=== PATIENT | male | born 1970 | race American Indian/Alaskan Native ===

== ENCOUNTER 2018-06-03 09:40 | Inpatient (IN) | payer MEDICARE, OTHER ==
[~2018-06-03] VITALS: Ht 177.8 cm; Wt 116.7 kg
--- OUTSIDE RECORDS SUMMARY | ~2018-06-03 | XMS | Clinical Summary ---
Demographics + + + | Address | [address] | | | [place] [address] | + + + | Home Phone | | + + + | Preferred Language | Unknown | + + + | Marital Status | | + + + | Judaism Affiliation | Unknown | + + + | Race | Unknown | + + + | Ethnic Group | Unknown | + + + Author + + + | Author | [facility] | + + + | Organization | [facility] | + + + | Address | Unknown | + + + | Phone | Unavailable | + + + Support + + +---------+ + | Name | Relationship | Address | Phone | + + +---------+ + | Jael Charlton | ECON | Unknown | | + + +---------+ + | Sania Toure | ECON | Unknown | | + + +---------+ + | Detailed,Message | ECON | Unknown | | + + +---------+ + Care Team Providers + +------+ + | Care Lightning Rod Installer Name | Role | Phone | + +------+ + | Edwar Wilhelm | PP | | + +------+ + Allergies + + + + + + | Active Allergy | Reactions | Severity | Noted | Comments | | | | | Date | | + + + + + + | Bee Venom | Anaphylaxis, | High | 10//20 | | | | Swelling, Rash | | 16 | | + + + + + + Current Medications + + +-------+---------+------+------+-------+ | Prescription | Sig. | Disp. | Refills | Star | End | Statu | | | | | | t | Date | s | | | | | | Date | | | + + +-------+---------+------+------+-------+ | BACLOFEN PO | Take 10 mg by mouth | | | | | Activ | | | 3 (three) times | | | | | e | | | daily. 2 10 mg tabs | | | | | | | | tid | | | | | | + + +-------+---------+------+------+-------+ | Calcium | Take 1 tablet by | | | | | Activ | | Carb-Cholecalciferol | mouth 3 (three) | | | | | e | | 600-500 MG-UNIT | times daily. | | | | | | | CAPS | | | | | | | + + +-------+---------+------+------+-------+ | | Take 1 tablet by | | | | | Activ | | HYDROcodone-acetamin | mouth every 6 (six) | | | | | e | | ophen (NORCO) 10-325 | hours as needed for | | | | | | | MG per tablet | Pain. | | | | | | + + +-------+---------+------+------+-------+ | midodrine | Take 10 mg by mouth | | | | | Activ | | (PROAMATINE) 10 MG | 3 (three) times | | | | | e | | tabletIndications: | daily. Indications: | | | | | | | Orthostatic | Blood Pressure Drop | | | | | | | Hypotension | Upon Standing | | | | | | + + +-------+---------+------+------+-------+ | morphine (MSIR) 15 | Take 15 mg by mouth | | | | | Activ | | MG tablet | 2 (two) times daily. | | | | | e | + + +-------+---------+------+------+-------+ | tizanidine | Take 4 mg by mouth 3 | | | | | Activ | | (ZANAFLEX) 4 MG | (three) times daily | | | | | e | | capsule | as needed for | | | | | | | | Muscle spasms. | | | | | | + + +-------+---------+------+------+-------+ | ascorbic acid | Take 500 mg by mouth | | | | | Activ | | (VITAMIN C) 500 MG | 2 (two) times | | | | | e | | tablet | daily. | | | | | | + + +-------+---------+------+------+-------+ | Naproxen Sodium | Take 1 tablet by | | | | | Activ | | 220 MG CAPS | mouth as needed. | | | | | e | + + +-------+---------+------+------+-------+ | ciprofloxacin | Take 500 mg by mouth | | | | | Activ | | (CIPRO) 500 MG | 2 (two) times | | | | | e | | tabletIndications: | daily. Indications: | | | | | | | Surgical Prophylaxis | Surgical Prophylaxis | | | | | | + + +-------+---------+------+------+-------+ + + +-------+ +------+------+-------+ | Hospital, Clinic, or | Ordered | Route | Frequency | Star | End | Statu | | Other Facility | Dose | | | t | Date | s | | Administered | | | | Date | | | | Medication | | | | | | | + + +-------+ +------+------+-------+ | lidocaine | | UR | Once | 07/1 | | Activ | | (XYLOCAINE) 2 % | | | | 2/20 | | e | | uro-ject | | | | 17 | | | | gelIndications: | | | | | | | | Neurogenic bladder | | | | | | | + + +-------+ +------+------+-------+ | sodium chloride | 60 mL | IR | Continuous | 08/1 | | Activ | | (IR) 0.9 % | | | | 5/20 | | e | | irrigation 60 | | | | 17 | | | | mLIndications: | | | | | | | | Neurogenic bladder | | | | | | | + + +-------+ +------+------+-------+ Active Problems + + + | Problem | Noted Date | + + + | Neurogenic bladder | 12/15/2015 | + + + Family History + + +------+ + | Medical History | Relation | Name | Comments | + + +------+ + | Heart disease | Father | | | + + +------+ + | Hypertension | Father | | | + + +------+ + + +------+--------+ + | Relation | Name | Status | Comments | + +------+--------+ + | Father | | Alive | | + +------+--------+ + | Mother | | Alive | | + +------+--------+ + Social History + +-------+ +--------+------+ | Tobacco Use | Types | Packs/Day | Years | Date | | | | | Used | | + +-------+ +--------+------+ | Former Smoker | | 0.1 | 1 | | + +-------+ +--------+------+ + +---+---+---+ | Smokeless Tobacco: | | | | | Current User | | | | + +---+---+---+ + + | Comments: quit smoking 1994 | + + + + +---------+ + | Alcohol Use | Drinks/We | oz/Week | Comments | | | ek | | | + + +---------+ + | No | | | | + + +---------+ + + + + | Sex Assigned at | Date Recorded | | | | + + + | Not on file | | + + + Last Filed Vital Signs + + + + | Vital Sign | Reading | Time Taken | + + + + | Blood Pressure | 132/67 | 03/02/2016 10:00 AM PST | + + + + | Pulse | 81 | 03/02/2016 10:00 AM PST | + + + + | Temperature | 36.4 C (97.6 F) | 03/02/2016 10:00 AM PST | + + + + | Respiratory Rate | 16 | 03/02/2016 10:00 AM PST | + + + + | Oxygen Saturation | 99% | 03/02/2016 10:00 AM PST | + + + + | Inhaled Oxygen | - | - | | Concentration | | | + + + + | Weight | 99.3 kg (219 lb) | 03/02/2016 7:28 AM PST | + + + + | Height | 177.8 cm (5' 10") | 03/02/2016 7:28 AM PST | + + + + | Body Mass Index | 31.42 | 03/02/2016 7:28 AM PST | + + + + Plan of Treatment + + + + + | Health Maintenance | Due Date | Last Done | Comments | + + + + + | Vaccine: | | | | | Dtap/Tdap/Td (1 - | 0 | | | | Tdap) | | | | + + + + + | Vaccine: Influenza | | 02/14/2013 | | | (Season Ended) | 9 | | | + + + + + Results Not on filefrom Last 3 Months Insurance + +--------+ +------+-------+ + | Payer | Benefi | Subscriber | Type | Phone | Address | | | t Plan | ID | | | | | | / | | | | | | | Group | | | | | + +--------+ +------+-------+ + | MEDICARE | MEDICA | [id number] | | | [address] | | | RE | | | | [place] [address] | | | IP-OP | | | | | + +--------+ +------+-------+ + | MEDICAID | [place] | [id number] | | | [address] | | | [place] | | | | [place] | | | [place] | | | | [address] | | | [place] | | | | | + +--------+ +------+-------+ + | [facility] | YELLOW | [id number] | | | | | PLANS | [place] | | | | | + +--------+ +------+-------+ + + +--------+ +--------+ + + | Guarantor Name | Accoun | Relation to | Date | Phone | Billing Address | | | t Type | Patient | of | | | | | | | | | | + +--------+ +--------+ + + | MARTINEZ ABBASI II | Person | Self [birth year] | Home: | [address] | | | al/Fam | | 1970 | +- | [place] | | | [place]ri[place] | | | [address] | [phone] | + +--------+ +--------+ + + | MARTINEZ ABBASI II | Third | Self | [birth year] | Home: | [address] | | | Republican | | 1970 | +- | [place] | | | [place] | | | [address] | [phone] | | | ity | | | | | + +--------+ +--------+ + +
--- OUTSIDE RECORDS SUMMARY | ~2018-06-03 | XMS | Clinical Summary ---
Demographics + + + | Address | [address] | | | [place] [address] | + + + | Home Phone | | + + + | Preferred Language | Unknown | + + + | Marital Status | Single | + + + | Muslim Affiliation | 1074 | + + + | Race | Unknown | + + + | Ethnic Group | Unknown | + + + Author + + + | Author | [facility] | | | and [place]ren[place] | + + + | Organization | [facility] | | | and [place] | [...] [place] | | | | | [address] | | + + + + + Care Team Providers + +------+ + | Care Magisterial District Judge Name | Role | Phone | + +------+ + | Edwar Wilhelm PA-C | PP | Unavailable | + +------+ + Allergies + + + + + + | Active Allergy | Reactions | Severity | Noted | Comments | | | | | Date | | + + + + + + | Bee Venom | Swelling | Medium | 05/10/20 | | | | | | 14 | | + + + + + + | Honey Bee Venom | Swelling | Medium | /1020 | | | | | | 14 | | + + + + + + Medications + + + +---------+------+------+-------+ | Medication | Sig | Dispensed | Refills | Star | End | Statu | | | | | | t | Date | s | | | | | | Date | | | + + + +---------+------+------+-------+ | gabapentin | Take 300 mg by mouth | | 0 | | | Activ | | (NEURONTIN) 100 mg | 3 times daily. | | | | | e | | capsule | | | | | | | + + + +---------+------+------+-------+ | midodrine | Take 10 mg by mouth | | 0 | | | Activ | | (PROAMATINE) 10 MG | 3 times daily. | | | | | e | | tablet | | | | | | | + + + +---------+------+------+-------+ | acetaminophen | Take 650 mg by mouth | | 0 | | | Activ | | (TYLENOL) 325 mg | every 4 hours as | | | | | e | | tablet | needed. | | | | | | + + + +---------+------+------+-------+ | albuterol | Inhale 2 puffs into | 1 | 0 | 04/0 | | Activ | | (VENTOLIN HFA) 90 | the lungs every 4 | Inhaler | | 8/20 | | e | | mcg/puff inhaler | hours as needed for | | | 14 | | | | | Wheezing or | | | | | | | | Shortness of Breath. | | | | | | | | Use with spacer | | | | | | | | device. | | | | | | + + + +---------+------+------+-------+ | docusate sodium | Take 100 mg by mouth | | 0 | | | Activ | | (COLACE) 100 mg | Daily. | | | | | e | | capsule | | | | | | | + + + +---------+------+------+-------+ | Probiotic Product | Take 1 tablet by | | 0 | | | Activ | | (PROBIOTIC PEARLS | mouth Daily. | | | | | e | | PO) | | | | | | | + + + +---------+------+------+-------+ | polyethylene | Mix 17grams into 4-8 | 255 g | 0 | 09/1 | | Activ | | glycol (MIRALAX) | oz of juice or | | | 3/20 | | e | | powder | water and take by | | | 14 | | | | | mouth once daily for | | | | | | | | 2 weeks | | | | | | + + + +---------+------+------+-------+ | calcium-vitamin D | Take 1 tablet by | | 0 | | | Activ | | (OSCAL) 500 mg-200 | mouth Daily. | | | | | e | | units per tablet | | | | | | | + + + +---------+------+------+-------+ | | Take 1 tablet by | | 0 | | | Activ | | HYDROcodone-acetamin | mouth every 8 hours | | | | | e | | ophen (NORCO) 10-325 | as needed for Pain. | | | | | | | mg per tablet | | | | | | | + + + +---------+------+------+-------+ | baclofen | 1 tablet by mouth | 150 | 2 | 08/2 | | Activ | | (LIORESAL) 20 mg | qAM, 1 qNoon, 1 qPM, | tablet | | 4/20 | | e | | tabletIndications: | and 2 qHS | | | 15 | | | | Abdominal spasms, | | | | | | | | Muscle spasm of both | | | | | | | | lower legs | | | | | | | + + + +---------+------+------+-------+ | morphine (MSIR) 15 | Take 15 mg by mouth | | 0 | | | Activ | | mg tablet | 2 times daily. | | | | | e | + + + +---------+------+------+-------+ Active Problems + + + | Problem | Noted Date | + + + | Impaired mobility and activities of daily living | 02/24/2015 | + + + | Impaired functional mobility, balance, gait, and endurance | 02/24/2015 | + + + | Quadriplegia, C5-C7, incomplete | 02/23/2015 | + + + | Posture imbalance | 02/23/2015 | + + + | Neck pain | 02/23/2015 | + + + | Bilateral shoulder pain | 02/23/2015 | + + + | Dysphagia | 12/18/2014 | + + + | GERD (gastroesophageal reflux disease) | 12/18/2014 | + + + | RUQ abdominal pain | 12/18/2014 | + + + | Constipation | 12/18/2014 | + + + | Incomplete spinal cord lesion at C5-C7 level | 08/19/2013 | + + + | Abdominal spasms | 07/17/2013 | + + + | Muscle spasm of both lower legs | 07/17/2013 | + + + | Neurogenic bowel | 07/17/2013 | + + + | Neurogenic bladder | 07/17/2013 | + + + | Impaired mobility and ADLs | 07/17/2013 | + + + | Septic shock | 07/06/2013 | + + + | Acute renal failure (ARF) | 07/06/2013 | + + + | UTI (lower urinary tract infection) | 07/06/2013 | + + + + + | 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 | + + Last Filed Vital Signs + + + + | Vital Sign | Reading | Time Taken | + + + + | Blood Pressure | 143/68 | 09/15/20161248 PDT | + + + + | Pulse | 69 | 09/15/20161248 PDT | + + + + | Temperature | 37.8 C (100 F) | 04/08/20151651 PST | + + + + | Respiratory Rate | 20 | 06/14/20161629 PDT | + + + + | Oxygen Saturation | 99% | 04/08/20151651 PST | + + + + | Inhaled Oxygen | - | - | | Concentration | | | + + + + | Weight | 98 kg (216 lb) | 09/15/20161248 PDT | + + + + | Height | 177.8 cm (5' 10") | 09/15/2016 1249 PDT | + + + + | Body Mass Index | 30.99 | 09/15/20161248 PDT | + + + + Plan of Treatment + + + + + | Health Maintenance | Due Date | Last Done | Comments | + + + + + | Vaccine: | | | | | Dtap/Tdap/Td (1 - | 0 | | | | Tdap) | | | | + + + + + | Vaccine: | | | | | Pneumococcal 19-64 | 0 | | | | Highest Risk (1 of 3 | | | | | - PCV13) | | | | + + + + + | Adult Annual | | | | | Wellness Visit | 5 | | | + + + + + | Vaccine: Influenza | | 02/14/2013 | | | (Season Ended) | 9 | | | + + + + + Results Not on filefrom Last 3 Months Insurance + +--------+ +--------+ +---------+--------+ | Payer | Benefi | Subscriber | Effect | Phone | Address | Type | | | t Plan | ID | michelle | | | | | | / | | Dates | | | | | | Group | | | | | | + +--------+ +--------+ +---------+--------+ | MEDICARE | MEDICA | [id number] | 07/29/19 | [phone] | | Medica | | | RE | | 16-Pre | 5 | | re | | | PART A | | sent | | | | | | AND B | | | | | | + +--------+ +--------+ +---------+--------+ | [employer] | MODA | [id number] | 02/17/ | [phone] | | Medica | | MEDICAID HMO | HEALTH | | 2014-P | 1 | | id | | | MDCD | | resent | | | | | | HMO [place] | | | | | | + +--------+ +--------+ +---------+--------+ | [facility] | IHS | [id number] | | | | Indemn | | SERVICE | YELLOW | | 014-Pr | | | ity | | | [place]WK | | esent | | | | + +--------+ +--------+ +---------+--------+ + +--------+ +--------+ + + | Guarantor Name | Accoun | Relation to | Date | Phone | Billing Address | | | t Type | Patient | of | | | | | | | | | | + +--------+ +--------+ + + | Martinez Abbasi II | Person | Self [birth year] | | [address] | | | al/Fam | | 1971 | [phone] | [place] [address] | | | adri[place] | | | 4 (Home) | | + +--------+ +--------+ + + Advance Directives Patient has advance care planning documents, and code status on file. For more information, please contact:[facility] [place] [address] + + + + + | Code Status | Date | Date | Comments | | | Activated | Inactivated | | + + + + + | Full Code | 07/06/2013 | 07/09/2013 | | | | 1:19 | 17:35 | | + + + + + + +---------+---+ | Orders discussed with: | Patient | | + +---------+---+
--- OUTSIDE RECORDS SUMMARY | ~2018-06-03 | XMS | Clinical Summary ---
Demographics + + + | Address | [address] | | | [place] [address] | + + + | Home Phone | | + + + | Preferred Language | Unknown | + + + | Marital Status | | + + + | Druze Affiliation | Unknown | + + + | Race | Unknown | + + + | Ethnic Group | Unknown | + + + Author + + + | Author | [facility] | + + + | Organization | [facility] | + + + | Address [...] Team Providers + +------+ + | Care Petroleum Plant Operator Name | Role | Phone | [...] +------+-------+ + | MEDICARE | MEDICA | [id number] | | | [address] | | | RE | | | | [place] [address] | | | IP-OP | | | | | + +--------+ +------+-------+ + | MEDICAID | [place] | [id number] | | | [address] | | | N | | | | [place] | | | [place] | | | | [phone] | | | PIPING SUPERVISOR | | | | | + +--------+ +------+-------+ + | [facility] | YELLOW | [id number] | | | | | PLANS | [...] | [place] | | | [address] | [phone] | + +--------+ +--------+ + + | MARTINEZ ABBASI II | Third | Self | [birth year] | Home: | [address] | | | Libertarian | | 1970 | +- | [place] | | | [place] | | | [address] | [phone] | | | ity | | | | | + +--------+ +--------+ + +
--- OUTSIDE RECORDS SUMMARY | ~2018-06-03 | XMS | Clinical Summary ---
Demographics + + + | Address | [address] | | | [place] [address] | + + + | Home Phone | | + + + | Preferred Language | Unknown | + + + | Marital Status | Single | + + + | Synagogue Affiliation | 1074 | + + + | Race | Unknown | + + + | Ethnic Group | Unknown | + + + Author + + + | Author | [facility] | | | and [place] | + + + | Organization | [facility] | | | and [place] [...] [place] | | | | | [address] | | + + + + + Care Team Providers + +------+ + | Care Post Tensioning Ironworker Helper Name | Role | Phone | [...] + + + | Overview: Problem list council member utility | + + + + + [...] +--------+ +---------+--------+ | MEDICARE | MEDICA | [id number] | 07/29/19 | [phone] | | Medica | | | RE | | 16-Pre | 5 | | re | | | PART A | | sent | | | | | | AND B | | | | | | + +--------+ +--------+ +---------+--------+ | [employer] | MODA | [id number] | 02/17/ | [phone] | | Medica | | MEDICAID HMO | HEALTH | | 2014-P | 1 | | id | | | MDCD | | resent | | | | | | HMO [place] | | | | | | + +--------+ +--------+ +---------+--------+ | [facility] | IHS | [id number] | | | | Indemn | | [...] | | al/Fam | | 1971 | [phone] | [place] [address] | | | adri[place] | | | 4 (Home) | | + +--------+ +--------+ + + Advance Directives Patient has advance care planning documents, and code status on file. For more information, please contact:[facility] [place] [address] + + + + + | Code [...]
--- OUTSIDE RECORDS SUMMARY | ~2018-06-03 | XMS | Clinical Summary ---
Demographics + + + | Address | [address] | | | [place] [address] | + + + | Home Phone | | + + + | Preferred Language | Unknown | + + + | Marital Status | | + + + | Jew Affiliation | Unknown | + + + | Race | Unknown | + + + | Ethnic Group | Unknown | + + + Author + + + | Author | [facility] | + + + | Organization | [facility] | + + + | Address [...] Team Providers + +------+ + | Care Automobile Tire Builder Name | Role | Phone | [...] +------+-------+ + | MEDICARE | MEDICA | [id number] | | | [address] | | | RE | | | | [place] [address] | | | IP-OP | | | | | + +--------+ +------+-------+ + | MEDICAID | [place] | [id number] | | | [address] | | | N | | | | [place] | | | [place] | | | | [phone] | | | MANUFACTURING JOB TITLES | | | | | + +--------+ +------+-------+ + | [facility] | YELLOW | [id number] | | | | | PLANS | [...] | [place] | | | [address] | [phone] | + +--------+ +--------+ + + | MARTINEZ ABBASI II | Third | Self | [birth year] | Home: | [address] | | | Democrat | | 1970 | +- | [place] | | | [place] | | | [address] | [phone] | | | [place]y | | | | | + +--------+ +--------+ + +
--- OUTSIDE RECORDS SUMMARY | ~2018-06-03 | XMS | Clinical Summary ---
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 | + + + + + [...] +--------+ +---------+--------+ | MEDICARE | MEDICA | [id number] | 07/29/19 | [phone] | | Medica | | | RE | | 16-Pre | 5 | | re | | | PART A | | sent | | | | | | AND B | | | | | | + +--------+ +--------+ +---------+--------+ | [employer] | MODA | [id number] | 02/17/ | [phone] | | Medica | | MEDICAID HMO | HEALTH | | 2014-P | 1 | | id | | | MDCD | | resent | | | | | | [place]MO [place] | | | | | | + +--------+ +--------+ +---------+--------+ | [facility] | IHS | [id number] | | | | Indemn | | [...] | | al/Fam | | 1971 | [phone] | [place] [address] | | | adrián | | | 4 (Home) | | + +--------+ +--------+ + + Advance Directives Patient has advance care planning documents, and code status on file. For more information, please contact:[facility] [address] + + + + + | Code [...]
[~2018-06-03 09:40] MED LIST: BACLOFEN20 MG PO; CALCIUM 600 +1 EAC1 PO; CLARITIN10 MG PO; DITROPAN XL5 MG PO; GABAPENTIN100 MG PO; GABAPENTIN300 MG PO; HYDROCODON-ACE1 EAC8 PO; MARINOL5 MG PO; MIDODRINE HCL10 MG PO; MIRALAX119 GM PO; MORPHINE SULFAT15 M1 PO; MULTIVITAMINS1 EAC8 PO; OMEPRAZOLE20 MG PO; SENNA GEN PO; VITAMIN C500 M2 PO; WARFARIN SODIU7.5 MG PO
--- OUTSIDE RECORDS SUMMARY | 2018-06-03 09:42 | XMS ---
PreManage Notification: WILLY CASTILLO Security Barrel Endshaker Adjuster Events No recent Security Events currently on file CRITERIA MET - [facility] CARE PROVIDERS MASTER AGUIRRE, Physical Medicine \T\ Rehabilitation [facility] Norma EMartin PHONE: Unknown Conner Mazariegos Wing Mailer Machine Operator/Senior Mobile Web Developer 01/27/2018-Current PHONE: [phone] Conner Mazariegos Wing Mailer Machine Operator/Senior Mobile Web Developer 01/27/2018-Current PHONE: [phone] Conner Mazariegos Primary Care 01/27/2018-Current PHONE: [phone] Kat has no Care Guidelines for this patient. Devan VISIT COUNT (12 MO.) 1 [facility] oMore TOTAL 1 NOTE: Visits indicate total known visits. ED/UCC VISIT TRACKING (12 MO.) 06/03/2018 09:40 [facility] [place] TYPE: Emergency COMPLAINT: - RECTAL BLEEDING INPATIENT VISIT TRACKING (12 MO.) No inpatient visits to display in this time frame [id number]
[2018-06-03] MEDS ORDERED: BACLOFEN10 MG PO (10:06)
[2018-06-04] MEDS ORDERED: NORCO 7.5-3251 EACH PO (10:33)
[2018-06-04] MEDS ORDERED: GABAPENTIN600 MG PO (14:29)
[2018-06-04] MEDS ORDERED: TIZANIDINE HCL4 MG PO (14:30)
[2018-06-05] MEDS ORDERED: LORATADINE10 MG PO (17:39)
[2018-06-10] MEDS ORDERED: METRONIDAZOLE250 MG PO (10:47)
[2018-06-10] MEDS ORDERED: CEPHALEXIN500 MG PO (10:47)
== END 2018-06-10 13:15 | disposition home or self-care (01) | DRG 393 ==
LOC: ED 09:40 → MS 15:34
PROVIDERS: ADMIT Internal Medicine
DX: K55.039 Acute (reversible) ischemia of large intestine, extent unspecified (principal); G82.50 Quadriplegia, unspecified; A09 Infectious gastroenteritis and colitis, unspecified; N31.9 Neuromuscular dysfunction of bladder, unspecified; G90.4 Autonomic dysreflexia; L89.621 Pressure ulcer of left heel, stage 1; L89.611 Pressure ulcer of right heel, stage 1; S14.107S Unspecified injury at C7 level of cervical spinal cord, sequela; V78 Bus occupant injured in noncollision transport accident; Z79.899 Other long term (current) drug therapy; Z79.891 Long term (current) use of opiate analgesic; Z72.0 Tobacco use
CPT/HCPCS: 36415; 74018; 74177; 80053; 85025; 87046; 87205; 87493; 99285-25; J0690; J2270; J2405; J7120; Q9967

== ENCOUNTER 2019-03-24 14:23 | Emergency (ER) | payer MEDICARE, OTHER ==
[~2019-03-24] VITALS: Ht 177.8 cm; Wt 100.0 kg
[~2019-03-24 14:23] MED LIST changes: +BACLOFEN10 MG PO; +CEPHALEXIN500 MG PO; +GABAPENTIN600 MG PO; +LORATADINE10 MG PO; +METRONIDAZOLE250 MG PO; +NORCO 7.5-3251 EACH PO; +TIZANIDINE HCL4 MG PO
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
[2019-03-24] MEDS ORDERED: EPIN0.3P IM (14:40)
[2019-03-25] MEDS ORDERED: DIPHENOXYLATE-1 EACH PO (17:35)
== END 2019-03-24 16:06 | disposition home or self-care (01) ==
LOC: ED 14:23
DX: T83.098A Other mechanical complication of other urinary catheter, initial encounter (principal); Z91.030 Bee allergy status; Z79.899 Other long term (current) drug therapy
CPT/HCPCS: 51702; 99283-25

== ENCOUNTER 2019-03-25 11:40 | Inpatient (IN) | payer MEDICARE, OTHER ==
[~2019-03-25] VITALS: Ht 177.8 cm; Wt 99.8 kg
[~2019-03-25 11:40] MED LIST changes: +EPIN0.3P IM
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
--- NOTE | 2019-03-25 16:46 | NUR ---
PT ARRIVED TO ROOM AND HOYERED TO BED. IVF AND ABX INFUSING NOW. WATER PROVIDED. DINNER ORDERED. HOME CAREGIVER HERE FOR FIRST HOUR AND LEFT AT 1640. ALL BELONGINGS IN REACH. FAN PROVIDED PER REQUEST.
[2019-03-25] MEDS ORDERED: DIPHENOXYLATE-1 EACH PO (17:35)
--- NOTE | 2019-03-25 17:35 | NUR ---
NEW ED ADMIT. SEPSIS/UTI. BARRIENTOS CATHETER. DID HAVE SUPRAPUBIC CATHETER BUT INADVERTENTLY BECAME DISLODGED YESTERDAY 03/24. ALERT AND ORIENTED. VS NON ROUTINE. QUADRIPLEGIA. REGULAR DIET.
--- NOTE | 2019-03-25 17:44 | NUR ---
MED REC COMPLETE
--- NOTE | 2019-03-25 18:03 | NUR ---
ADMINISTERED PRN IMMODIUM PER PT REQUEST AND GIVEN WARM BLANKET. CALL LIGHT WITHIN REACH.
--- NOTE | 2019-03-25 18:16 | NUR ---
PATIENT REPOSTITIONED ONTO RIGHT SIDE. B\P HIGH, WILL RECHECK IN A FEW MINTUES AFTER PATIENT RESTS FOR A BIT. CALL [facility] IN REACH. NO FURTHER NEEDS AT THIS TIME.
--- NOTE | 2019-03-25 18:58 | NUR ---
B\P RETAKEN, RN NOTIFIED. CALL LIGHT IN REACH. NO FURTHER NEEDS AT THIS TIME.
--- NOTE | 2019-03-25 19:10 | NUR ---
BEDSIDE REPORT RECEIVED FROM ERICA JAIME. pt AWAKENS TO VOICE, LYING IN BED. DENIES ANY NEEDS AT THIS TIME. BARRIENTOS CATHTER DRAINING CLEAR YELLOW URINE. CALL LIGHT IN LAP.
--- NOTE | 2019-03-25 21:28 | NUR ---
ASSESSMENT AND BARRIENTOS CARE COMPLETE. VSS. pt REPOSITIONED TO LEFT SIDE WITH TWO RN ASSIST. ICE WATER PROVIDED. IV FLUSHED, INFUSING WNL. pt RATES PAIN 6/10, UNABLE TO STATE LOCATION. PRN MEDICATION PROVIDED. CALL LIGHT IN REACH. NO ADDIITONAL REQUESTS.
--- NOTE | 2019-03-25 23:40 | NUR ---
CHECKED ON pt. RESTING IN BED AWAKE, DENIES ANY REQUESTS AT THIS TIME. DENIES NEED TO BE REPOSITIONED STATES "I JUST MOVED MYSELF, WAS ABLE TO SHIFT MY BUTT OVER". CALL LIGHT IN LAP.
--- NOTE | 2019-03-26 00:33 | NUR ---
CALL LIGHT ANSWERED. ASSISTED TO REPOSITION LEGS. HEEL PROTECTORS ON. CALL LIGHT IN REACH. NO ADDITIONAL REQUESTS AT THIS TIME.
--- NOTE | 2019-03-26 01:19 | NUR ---
pt AWAKE RESTING IN BED. VSS. pt RATES PAIN 7/10 IN LOWER ABD "MOSTLY" SOME GENERALIZED PAIN. REPOSITIONED WITH TWO RN ASSIST. BARRIENTOS EMPTIED 775 MLS YELLOW URINE. NEW BAG IVF INFUSING WNL ORDERED. ICE WATER PROVIDED. CALL LIGHT IN REACH.
--- NOTE | 2019-03-26 03:05 | NUR ---
CHECKED ON pt. LYING IN BED AWAKE. RATES PAIN 7/10 IN LOWER ABD/ALL OVER. PRN PAIN MEDICATION ADMINISTERED. ASSESSMENT COMPLETE. BARRIENTOS EMPTIED, CLEAR YELLOW URINE, 950 MLS. CALL LIGHT IN REACH. pt DENIES REPOSITIONING AT THIS TIME.
--- NOTE | 2019-03-26 05:07 | NUR ---
pt RESTING OFF AND ON THROUGHOUT SHIFT. BED BOUND. TURN Q2H PRN. IVF INFUSING WNL. PAIN CONTROLLED WITH PRN MEDICATION AVAILABLE. BARRIENTOS DRAINING QS OUTPUT, CLEAR YELLOW URINE. TOLERATING REGULAR DIET.
--- NOTE | 2019-03-26 05:30 | NUR ---
CALL LIGHT ANSWERED. BREAKFAST ORDER OBTAINED. NO REQUESTS AT THIS TIME.
--- NOTE | 2019-03-26 07:45 | NUR ---
BEDSIDE REPORT RECEIVED FROM LLOYD MALDONADO. ALL QUESTIONS ASNWERED. WHITE BOARD UPDATED. PATIENT AWAKE AT 0730. VSS. STREETER FROM DR HUTCHISON OFFICE IN TO SEE PATIENT. ASSISTED WITH REPOSITIONING PATIENT FOR BREAKFAST.
--- NOTE | 2019-03-26 09:23 | NUR ---
PATIENT C/O ABDOMINAL TENDERNESS. NORCO GIVEN AND IMMODIUM WITH MORNING MEDS. PATIENT COOPERATIVE WITH CARE AND IN A PLEASANT MOOD. NEW IVF BAG HUNG AND LEVAQUIN INFUSING INTO RFA IV NOW. ICE WATER PROVIDED. BREAKFAST TRAY REMOVED FROM ROOM. NO OTHER NEEDS AT THIS TIME.
--- NOTE | 2019-03-26 09:49 | NUR ---
PATIENT IN BED. PATIENT DID ORAL CARE AND AM CARE. PATIENT WANTS BEDBATH LATER. CALL LIGHT IN REACH. NO FURTHER NEEDS AT THIS TIME.
--- NOTE | 2019-03-26 10:57 | EKG ---
[facility] [address] [place], [place] [address] Signed Normal sinus rhythm Normal ECG When compared with ECG of 14-DEC-2017 12:59, No significant change was found Confirmed by LAKIA BEARD MD ([id number]) on 03/26/2019 10:57:25 AM Electronically Signed By: LAKIA BEARD MD 03/26/19 1057 PATIENT NAME: JONATHANWILLY ARRINGTON Electrocardiogram DATE OF : 70 PHYSICIAN: LAKIA BEARD MD REPORT #: [id number] REPORT IS CONFIDENTIAL AND NOT TO BE RELEASED WITHOUT AUTHORIZATION
--- NOTE | 2019-03-26 14:18 | NUR ---
RECEIVED A PHONE CALL FROM YOMAIRA HERRERA RN AT [facility] SHE WAS QUESTIONING WHETHER HE WAS STILL KEEPING HIS APPT WITH DR HUTCHISON THAT IS SCHEDULED FOR TOMORROW AM AT 0930. ALSO IF HE WAS GOING TO BE ABLE TO MAKE HIS APPOINTMENT WITH DR AGUIRRE TOMORROW. I TOLD HER I WOULD CHECK AND SEE AND LET HER KNOW. TALKED WITH PTS ERICA JAIME, SHE STATED THAT THE APPT FOR DR HUTCHISON WAS CHANGED TO March AT 1345 FOR H AND P VISIT AND March FOR SURGERY. THEN SHE DIDN'T KNOW ABOUT HIS VISIT FOR TOMORROW. PT CALLED AND CHANGED HIS APPT WITH DR AGUIRRE FOR May. I SPOKE WITH THE PT, HE SAID HE HAS NOT CANCELLED ANYTHING OR LET [facility] ABOUT ANY OF THESE CHANGES. I TOLD HIM I WOULD LET [facility] KNOW ABOUT THESE. ATTEMPTED TO CALL [facility] AND LEFT A MESSAGE WITH YOMAIRA. WILL CALL HER BACK LATER UNLESS SHE CALLS ME FIRST.
--- NOTE | 2019-03-26 14:58 | NUR ---
PATIENT SITTING UP IN BED, FAMILY IN ROOM. RN IN ROOM. FRESH WATER GIVEN. CALL LIGHT IN REACH. NO FURTHER NEEDS AT THIS TIME.
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
--- NOTE | 2019-03-26 16:41 | NUR ---
PATIENT GIVEN BEDBATH. LINENS CHANGED. LA CARE DONE. CALL LIGHT IN REACH. NO FURTHER NEEDS AT THIS TIME.
--- NOTE | 2019-03-26 16:49 | NUR ---
GRETCHEN, PHYSICAL THERAPIST, WORKED WITH PATIENT IN BED. BED BATH GIVEN BY PAOLA FELICIANO AND THIS RN AFTERWARDS. NOW HUNTER, CHLORINATION OPERATOR, IN TO SPEAK WITH PATIENT.
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
--- NOTE | 2019-03-26 17:10 | NUR ---
TALKED WITH PT REGARDING HIS ILLNESS, VERY INTERESTED IN MAKING SURE THAT HE IS DOING WHATS BEST FOR HIS CONDITION. WE TALKED ABOUT HIM TAKING CARE OF HIMSELF. PT STATES THAT HE IS WANTING TO RETURN TO SCHOOL AND BECOMING A PEER COUNSELOR FOR MENTAL HEALTH. HE UNDERSTANDS THE PROPER CARE AND TECHNIQUE NEEDED FOR CARING FOR HIS SUPRAPUBIC CATH. STATES HIS CAREGIVER IS VERY GOOD AT TAKING CARE. PT STATES UNDERSTANDING OF HIS DISEASE PROCESS. WENT THROUGH THE EDUCATION PACKET WITH HIM. STATES UNDERSTANDING.
--- NOTE | 2019-03-26 18:05 | NUR ---
PATIENT SITTING UP IN BED WATCHING TV. CALL LIGHT IN REACH. NO FURTHER NEEDS AT THIS TIME.
--- NOTE | 2019-03-26 18:10 | NUR ---
QUADRIPLEGIC WITH SOME USE OF HANDS AND ARMS. NORCO FOR PAIN PRN. IMODIUM GIVEN X2 TODAY. BED BATH THIS AFTERNOON. SOMETIMES HAS HIGH BP R/T MOVEMENT/REPOSITIONING OR PAIN. MIDODRINE FOR HISTORY OF LOW BP. 2PA LYUBOV. JOSH. BARRIENOTS CATHETER. UO QS.
--- NOTE | 2019-03-26 19:35 | NUR ---
BEDSIDE REPORT RECEIVED FROM ERICA JAIME. pt RESTING IN BED. REQUESTING PRN IMODIUM, "FEEL LIKE MY BELLY IS ACTING UP". CALL LIGHT IN REACH. IVF INFUSING WNL.
--- NOTE | 2019-03-26 20:42 | NUR ---
pt AWAKE RESTING IN BED WATCHING TV. RATES PAIN 7-8/10 ALL OVER. PRN MEDICATION ADMINISTERED. PRN IMODIUM ADMINISTERED. BARRIENTOS CARE COMPLETE. VSS. CALL LIGHT IN REACH. ICE WATER AND WARM BLANKET PROVIDED. pt DENIES REPOSTIONING AT THIS TIME. HEEL PROTECTORS ON. LEGS ELEVATED ON PILLOW.
--- NOTE | 2019-03-27 00:57 | NUR ---
pt RESTING IN BED WITH EYES CLOSED, SNORING. BREATHING UNLABORED. LIGHTS OFF IN ROOM.
--- NOTE | 2019-03-27 02:47 | NUR ---
pt APPEARS TO BE SLEEPING. RR 20. EYES CLOSED. LIGHTS OFF IN ROOM. BARRIENTOS DRAINING WNL.
--- NOTE | 2019-03-27 03:00 | NUR ---
Patient is resting. empty patient daly, fresh water given and call light in reach.
--- NOTE | 2019-03-27 03:16 | NUR ---
pt repositioned with ERICA Guerra. more water given, another warm blanket given, VS complete.
--- NOTE | 2019-03-27 03:17 | NUR ---
pt AWAKENS TO VOICE. BP 160/99. PRN PAIN MEDICATION ADMINISTERED. pt C/O PAIN, UNABLE TO STATE LOCATION, STATES, "I FEEL LIKE IT IS WHERE THE SUPRAPUBIC CATHETER WAS; IT HURTS WHEN I BEND OVER." REPOSITIONED WITH TWO NURSING STAFF ASSIST TO LEFT SIDE. BARRIENTOS DRAINING CLEAR YELLOW URINE. IV SL WNL. CALL LIGHT IN REACH. ICE WATER AND WARM BLANKET PROVIDED.
--- NOTE | 2019-03-27 05:02 | NUR ---
pt APPEARED TO REST WELL THIS SHIFT. BARRIENTOS DRAINING QS OUTPUT. BARRIENTOS CARE COMPLETE. IV SL. REPOSITIONED WITH 2PA IN BED. LYUBOV TRANSFER. USING CALL LIGHT APPROPRIATELY.
--- NOTE | 2019-03-27 06:30 | NUR ---
pt SLEEPING. AWAKENS TO VOICE. SCHEDULED MEDICATIONS ADMINISTERED. BARRIENTOS EMPTIED. CALL LIGHT IN REACH.
--- NOTE | 2019-03-27 09:00 | NUR ---
SITTING UP IN BED, EATING BREAKFAST, IN GOOD SPIRITS THIS AM, DENIES ANY DISCOMFORT AFTER POSITIONING, B/P STABLE, SKIN WARM AND DRY, BARRIENTOS PATENT WITH LIGHT YELLOW URINE, CALL LIGHT IN EASY REACH.
--- NOTE | 2019-03-27 10:00 | NUR ---
Spoke with Martinez and [facility] is unable to repair electric tilt wc and are not sure if they have a loaner. If they do have a loaner will not be able to deliver until the Mar. Called and spoke with Mohsen at [facility] and she confirms. [facility] and [facility] and they both state they do have short term rentals only to buy. Called and spoke with Chasity in [facility] while in Martinez's room. They have a tilt rental and can deliver today for rental fo $300/mo and delivery fee of $125. Martinez states he will have his mother take his handicap van and rock picker in [place]. She will complete his paperwork and pay for the rental. 4
--- NOTE | 2019-03-27 10:02 | NUR ---
PATIENT IN BED WATCHING TV. JEWELRY CONSULTANT DID V\S AND I&O'S. CALL LIGHT IN REACH. NO FURTHER NEEDS AT THIS TIME.
--- NOTE | 2019-03-27 10:23 | NUR ---
PT SITTING UP IN BED TALKING ON PHONE, STATES HE IS HAVING GENERALYZED DISCOMFORT, NORCO GIVEN, REPOSITIONED, LUNCH ORDERED.
--- NOTE | 2019-03-27 11:30 | NUR ---
Notified by staff pt will not be able to dc today as they are awaiting blood cultures. does not want pt to dc until results are returned. Pt has found a loaner Electric WC his caregiver had from a pt. Mom will go and pick this one up.
--- NOTE | 2019-03-27 14:22 | NUR ---
RADIO INTELLIGENCE OPERATOR DID VITALS AND I&O, RN IN ROOM. CALL LIGHT IN REACH. NO FURTHER NEEDS AT THIS TIME.
--- NOTE | 2019-03-27 18:10 | NUR ---
ATE 100% OF DINNER, CONT. TO DENY PAIN, NO NAUSEA, REMAINS AFEBRILE, DIGITAL STIMULATION FOR LARGE FORMED STOOL. POSITIONED FOR COMFORT, BARRIENTOS PATENT WITH LIGHT YELLOW URINE. IN GOOD SPIRITS. DENIES ANY NEEDS.
--- NOTE | 2019-03-27 19:41 | NUR ---
SHIFT REPORT RECEIVED FROM DAYSHIFT ERICA BRIDGES AT BEDSIDE. PT AWAKE AND RESTING IN BED, DENIES PAIN OR NEEDS. BOARD UPDATED, NO DISTRESS NOTED. CALL LIGHT IN REACH.
--- NOTE | 2019-03-27 20:15 | NUR ---
SCHEDULED MEDS GIVEN (SEE EMAR). PT A/OX4, RATES PAIN 6/10. PRN PAIN MEDICATION ADMINISTERED FOR GENERALIZED DISCOMFORT. BARRIENTOS DRAINING QS UO, WILL MONITOR FOR CHANGES. PT DENIES ADDITIONAL NEEDS, CALL LIGHT IN REACH.
--- NOTE | 2019-03-27 22:30 | NUR ---
SCHEDULED PROAMATINE ADMINISTERED, VSS. PT REPORTS CONTINUED 6-09/05 PAIN. DENIES ADDITIONAL PAIN MEDICATION, WILL MONITOR. PT REPOSITIONED IN BED, CATH CARE COMPLETED. PT CONTINUES TO TO PUT OUT QS UO. NO ADDITIONAL NEEDS, CALL LIGHT IN REACH.
--- NOTE | 2019-03-28 00:44 | NUR ---
prn imodium administred per pt request after pt reports "gurgling in my stomach. i'm all bloated and my bowel movement was soft". no further needs, call light in reach.
--- NOTE | 2019-03-28 02:23 | NUR ---
PT RESTING IN BED, EYES CLOSED. RESPIRATIONS EVEN AND UNLABORED. BILATERAL ANALI HOSE AND HEEL PROTECTORS IN PLACE. PT APPEARS COMFORTABLE, CALL LIGHT IN REACH.
--- NOTE | 2019-03-28 06:20 | NUR ---
SCHEDULED PROAMATINE ADMINISTERED, VSS. I&O'S COLLECTED. ASSESSMENT COMPLETE, NO NEW CHANGES OR CONCERNS. PT REPOSITIONED WITH HELP FROM PAOLA PEREZ. FRESH WATER AT BEDSIDE. NO ADDITIONAL NEEDS, CALL LIGHT IN REACH.
--- NOTE | 2019-03-28 06:30 | NUR ---
PT REPOSITIONED WITH TWO NURSING STAFF MEMBERS. PT IS COMFORTABLE, NOTHING FURTHER NEEDED AT THIS TIME.
--- NOTE | 2019-03-28 08:00 | NUR ---
Notified by staff, patient asking for help with a screw to place in loaner wc which was brought to the hospital. In and spoke with pt and let him know we cannot provide any repair to his wc due to liability. Asked he have his cg supply and place a screw if needed. Understanding stated. Later notified pt will not be able to use this wc as arm and back is broke. Family are getting another tild/space electric wc from other family which is 3 years old. All notified we are not responsible for wcs, I have given Martinez information to rent and new working wc from [employer] ([employer]). He has this infomration and it is is right to choose which wc he would like to use.
--- NOTE | 2019-03-28 08:50 | NUR ---
PT IS ALERT, ORIENTED, LOOKING FORWARD TO BREAKFAST THIS AM, STATES HE RESTED WELL LAST NIGHT, REMAINS AFEBRILE, CX REPORT BACK.
--- NOTE | 2019-03-28 11:20 | NUR ---
INFORMED PRIMARY NURSE OF CURRENT WHEELCHAIR IS UNSAFE FOR PATIENT USE PT REPOSTIONED ON LEFT SIDE WITH HELP FROM CAREGIVER. PT STATES NO FURTHER ASSISTANCE NEEDED AT THIS TIME. CALL LIGHT WITHIN REACH. CAREGIVER PRESENT IN ROOM.
[2019-03-28] MEDS ORDERED: CIPROFLOXACIN500 MG PO (11:46)
[2019-03-28] MEDS ORDERED: NICOTINE GUM2 MG MM (11:50)
--- NOTE | 2019-03-28 13:58 | NUR ---
PT IN BED, LAYING ON R SIDE WITH LUNCH NEXT TO HIM IN BED. HAD PLEASANT CONVERSATION WITH PT AND CG. PT BELIEVES DC IS TODAY, WENT OVER SOME THINGS TO HELP WITH DC. EXTENDED A BLESSING, WILL FOLLOW NEEDED
--- NOTE | 2019-03-28 13:59 | NUR ---
PT HAS A RENTAL CHAIR BEING DELIVERED LATER TODAY.
--- NOTE | 2019-03-28 14:52 | NUR ---
CAREGIVER HAS ARRIVED WITH MOTORIZED WC, REVIEWED DISCHARGE INSTRUCTIONS WITH PATIENT, VERBALIZES UNDERSTANDING OF MEDICATIONS AND FOLLOWUP APPOINTMENTS, IN GOOD SPIRITS, DENIES ANY QUESTIONS, CAREGIVER ASSISTING PT GETTING READY TO DISCHARGE.
== END 2019-03-28 15:45 | disposition home or self-care (01) | DRG 698 ==
LOC: ED 11:40 → MS 15:29
PROVIDERS: ADMIT Internal Medicine
DX: T83.511A Infection and inflammatory reaction due to indwelling urethral catheter, initial encounter (principal); A41.52 Sepsis due to Pseudomonas; A41.59 Other Gram-negative sepsis; G82.50 Quadriplegia, unspecified; N30.00 Acute cystitis without hematuria; N31.9 Neuromuscular dysfunction of bladder, unspecified; G90.4 Autonomic dysreflexia; S14.107S Unspecified injury at C7 level of cervical spinal cord, sequela; V49.9XXS Car occupant (driver) (passenger) injured in unspecified traffic accident, sequela; Z79.899 Other long term (current) drug therapy; Z79.891 Long term (current) use of opiate analgesic
CPT/HCPCS: 36415; 71045; 80053; 81001; 83605; 84484; 85025; 87077; 87088; 87186; 93005; 93010; 96365; 99285-25; A9270; J0696; J1650; J1956; J7030; J7121

== ENCOUNTER 2019-06-07 11:59 | Emergency (ER) | payer MEDICARE, OTHER ==
[~2019-06-07] VITALS: Ht 177.8 cm; Wt 999.4 kg
[~2019-06-07 11:59] MED LIST changes: +ASPIRIN325 MG PO; +CIPROFLOXACIN500 MG PO; +DIPHENOXYLATE-1 EACH PO; +KEFLEX500 MG PO; +NICOTINE GUM2 MG MM
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
== END 2019-06-07 12:28 | disposition home or self-care (01) ==
LOC: ED 11:59
DX: T83.098A Other mechanical complication of other urinary catheter, initial encounter (principal)

== ENCOUNTER 2019-06-19 21:21 | Emergency (ER) | payer MEDICARE, OTHER ==
[~2019-06-19] VITALS: Ht 177.8 cm; Wt 95.4 kg
--- OUTSIDE RECORDS SUMMARY | ~2019-06-19 | XMS | Encounter Summary ---
Demographics + + + | Address | [address] | | | [place] [address] | + + + | Home Phone | | + + + | Preferred Language | Unknown | + + + | Marital Status | Single | + + + | Church Affiliation | 1074 | + + + | Race | Unknown | + + + | Ethnic Group | Unknown | + + + Author + + + | Author | [facility] | | | and [place] | + + + | Organization | [facility] | | | and [place] | + + + | Address | Unknown | + + + | Phone | Unavailable | + + + Support + + + + + | Name | Relationship | Address | Phone | + + + + + | Iraida Toure | ECON | Unknown | | + + + + + | Jael Marquez | ECON | [address] | | | | | [place] | | | | | [phone] | | + + + + + Care Team Providers + +------+ + | Care Curriculum Counselor Name | Role | Phone | + +------+ + | Edwar Wilhelm PA-C | PCP | | + +------+ + Encounter Details +--------+ + + + + | Date | Type | Department | Care Team | Description | +--------+ + + + + | 12/31/ | Hospital | [facility] | Conversion | | | 2016 | Encounter | [facility] | Transaction, | | | | | CLINIC [address] | Provider Unknown | | | | | [address] [place], [place] | | | | | | [address] | (Fax) | | | | | [phone] | | | +--------+ + + + + Social History + +-------+ +--------+------+ | Tobacco Use | Types | Packs/Day | Years | Date | | | | | Used | | + +-------+ +--------+------+ | Never Smoker | | | | | + +-------+ +--------+------+ + +------+---+---+ | Smokeless Tobacco: | Chew | | | | Current User | | | | + +------+---+---+ + + +---------+ + | Alcohol Use | Drinks/Week | oz/Week | Comments | + + +---------+ + | No | | | recovering alcoholic | + + +---------+ + + + + | Sex Assigned at | Date Recorded | | | | + + + | Not on file | | + + + + + + + | Job Start Date | Occupation | Industry | + + + + | Not on file | Not on file | Not on file | + + + + + + + + | Travel History | Travel Start | Travel End | + + + + + + | No recent travel history available. | + + documented as of this encounter Last Filed Vital Signs + + + + + | Vital Sign | Reading | Time Taken | Comments | + + + + + | Blood Pressure | 126/72 | 01/01/2016 2:46 PM | | | | | PDT | | + + + + + | Pulse | 53 | 01/01/2016 2:46 PM | | | | | PDT | | + + + + + | Temperature | - | - | | + + + + + | Respiratory Rate | - | - | | + + + + + | Oxygen Saturation | - | - | | + + + + + | Inhaled Oxygen | - | - | | | Concentration | | | | + + + + + | Weight | 99.8 kg (220 lb) | 01/01/2016 2:46 PM | | | | | PDT | | + + + + + | Height | 177.8 cm (5' 10") | 01/01/2016 2:46 PM | | | | | PDT | | + + + + + | Body Mass Index | 31.57 | 01/01/2016 2:46 PM | | | | | PDT | | + + + + + documented in this encounter Medications at Time of Discharge + + + +---------+ + + | Medication | Sig | Dispensed | Refills | Start | End Date | | | | | | Date | | + + + +---------+ + + | acetaminophen | Take 2 tablets by | | 0 | 02/23/20 | | | (TYLENOL) 325 mg | mouth every six | | | 13 | | | tablet | hours. | | | | | + + + +---------+ + + | acetaminophen | Take 650 mg by mouth | | 0 | | | | (TYLENOL) 325 mg | every 4 hours as | | | | | | tablet | needed. | | | | | + + + +---------+ + + | albuterol | Inhale 2 puffs into | 1 | 0 | 06/05/19 | | | (VENTOLIN HFA) 90 | the lungs every 4 | Inhaler | | 14 | | | mcg/puff inhaler | hours as needed for | | | | | | | Wheezing or | | | | | | | Shortness of Breath. | | | | | | | Use with spacer | | | | | | | device. | | | | | + + + +---------+ + + | baclofen | 1 tablet by mouth | 150 | 2 | 10/21/19 | | | (LIORESAL) 20 mg | qAM, 1 qNoon, 1 qPM, | tablet | | 15 | | | tabletIndications: | and 2 qHS | | | | | | Abdominal spasms, | | | | | | | Muscle spasm of both | | | | | | | lower legs | | | | | | + + + +---------+ + + | bisacodyl | Insert 1 suppository | | 0 | 02/23/20 | | | (DULCOLAX) 10 mg | rectally once | | | 13 | | | suppository | daily. | | | | | + + + +---------+ + + | calcium carbonate | Take 2 tablets by | | 0 | 03/22/19 | | | (TUMS) 500 mg | mouth every 8 hours | | | 14 | | | chewable tablet | as needed. | | | | | + + + +---------+ + + | calcium-vitamin D | Take 1 tablet by | | 0 | | | | (OSCAL) 500 mg-200 | mouth Daily. | | | | | | units per tablet | | | | | | + + + +---------+ + + | diazePAM (VALIUM) | Take 1 tablet by | | 0 | 02/23/20 | | | 5 mg tablet | mouth four times | | | 13 | | | | daily as needed. | | | | | + + + +---------+ + + | docusate sodium | Take 100 mg by mouth | | 0 | 03/22/19 | | | (COLACE) 100 mg | 2 times daily. | | | 14 | | | capsule | | | | | | + + + +---------+ + + | docusate sodium | Take 100 mg by mouth | | 0 | | | | (COLACE) 100 mg | Daily. | | | | | | capsule | | | | | | + + + +---------+ + + | enoxaparin | Inject 0.8 mL under | | 0 | 02/23/20 | | | (LOVENOX) 80 mg/0.8 | the skin (SUBC) | | | 13 | | | mL injection | every twelve hours. | | | | | + + + +---------+ + + | gabapentin | Take 2 capsules by | | 0 | 03/22/19 | | | (NEURONTIN) 100 mg | mouth 3 times daily. | | | 14 | | | capsule | | | | | | + + + +---------+ + + | gabapentin | Take 300 mg by mouth | | 0 | | | | (NEURONTIN) 100 mg | 3 times daily. | | | | | | capsule | | | | | | + + + +---------+ + + | guar gum | Take 1 packet by | | 0 | 02/23/20 | | | (NUTRISOURCE FIBER) | mouth three times | | | 13 | | | packet | daily. | | | | | + + + +---------+ + + | | Take 1 tablet by | | 0 | | | | HYDROcodone-acetamin | mouth every 8 hours | | | | | | ophen (NORCO) 10-325 | as needed for Pain. | | | | | | mg per tablet | | | | | | + + + +---------+ + + | lidocaine | Apply 2 patches to | | 0 | 02/23/20 | | | (LIDODERM) 5% patch | skin every | | | 13 | | | | twenty-four hours. | | | | | | | Apply patch to most | | | | | | | painful area; Patch | | | | | | | may remain in place | | | | | | | for up to 12 hours | | | | | | | in any 24-hour | | | | | | | period. | | | | | + + + +---------+ + + | menthol-zinc oxide | Apply topically 4 | | 0 | 03/22/19 | | | (RISAMINE) | times daily. | | | 14 | | | 0.44-20.625% | | | | | | | ointment | | | | | | + + + +---------+ + + | miconazole | Bid to rash | | 0 | 03/22/19 | | | (MICATIN) 2% cream | | | | 14 | | + + + +---------+ + + | midodrine | Take 10 mg by mouth | | 0 | | | | (PROAMATINE) 10 MG | 3 times daily. | | | | | | tablet | | | | | | + + + +---------+ + + | nystatin | Bid to rash | | 0 | 03/22/19 | | | (MYCOSTATIN) [id number] | | | | 14 | | | UNIT/GM powder | | | | | | + + + +---------+ + + | omeprazole | Take 1 capsule by | | 0 | 03/22/19 | | | (PRILOSEC) 20 mg | mouth every morning | | | 14 | | | capsule | (before breakfast). | | | | | + + + +---------+ + + | oxyCODONE | Take 1-4 tablets by | | 0 | 03/22/19 | | | (ROXICODONE) 5 mg | mouth every 3 hours | | | 14 | | | tablet | as needed for Pain. | | | | | + + + +---------+ + + | oxyCODONE | Take 1-2 tablets by | | 0 | 04/11/19 | | | (ROXICODONE) 5 mg | mouth every three | | | 14 | | | tablet | hours as needed for | | | | | | | severe pain. | | | | | + + + +---------+ + + | polyethylene | Take 17 g by mouth | | 0 | 02/23/20 | | | glycol (MIRALAX) | once daily at | | | 13 | | | powder | bedtime as needed | | | | | | | (No BM in past 3 | | | | | | | days). | | | | | + + + +---------+ + + | polyethylene | Mix 17grams into 4-8 | 255 g | 0 | 11/10/19 | | | glycol (MIRALAX) | oz of juice or | | | 14 | | | powder | water and take by | | | | | | | mouth once daily for | | | | | | | 2 weeks | | | | | + + + +---------+ + + | Probiotic Product | Take 1 tablet by | | 0 | | | | (PROBIOTIC PEARLS | mouth Daily. | | | | | | PO) | | | | | | + + + +---------+ + + | senna (SENOKOT) | Take 1 tablet by | | 0 | 03/22/19 | | | 8.6 mg tablet | mouth every morning. | | | 14 | | + + + +---------+ + + | ciprofloxacin | Take 500 mg by mouth | | 0 | | | | (CIPRO) 500 mg | 2 times daily. | | | | 7 | | tablet | | | | | | + + + +---------+ + + | diazepam (VALIUM) | Take 5 mg by mouth 3 | | 0 | | | | 5 mg tablet | times daily as | | | | 7 | | | needed. | | | | | + + + +---------+ + + | docusate-senna | Take 1 tablet by | | 0 | | | | (SENOKOT-S) 50-8.6 | mouth Daily. | | | | 7 | | mg per tablet | | | | | | + + + +---------+ + + | dronabinol | Take 5 mg by mouth 2 | | 0 | | | | (MARINOL) 5 mg | times daily. | | | | 7 | | capsule | | | | | | + + + +---------+ + + | omeprazole | Take 20 mg by mouth | | 0 | | | | (PRILOSEC) 20 mg | every morning | | | | 7 | | capsule | (before breakfast). | | | | | + + + +---------+ + + | senna (SENOKOT) | Take 1 tablet by | | 0 | | | | 8.6 mg tablet | mouth Twice daily | | | | 7 | | | as needed. | | | | | + + + +---------+ + + | | Take 1 tablet by | | 0 | | | | sulfamethoxazole-tri | mouth 2 times daily. | | | | 7 | | methoprim (BACTRIM | X 10 days | | | | | | DS) 800-160 mg per | | | | | | | tablet | | | | | | + + + +---------+ + + | terbinafine | apply twice daily to | 42 g | 0 | 03/26/19 | | | (LAMISIL) 1% cream | affected area | | | 16 | 7 | + + + +---------+ + + | zinc oxide-cod | Apply to affected | 113 g | 0 | 03/26/19 | | | liver oil-lanolin | area 3 times daily. | | | 16 | 7 | | (DESITIN) 40% | | | | | | | ointment | | | | | | + + + +---------+ + + documented as of this encounter Plan of Treatment +--------+---------+ + + + | Date | Type | Specialty | Care Team | Description | +--------+---------+ + + + | 07/18/ | Office | Physical Medicine | Chris Priest, | | | 2019 | Visit | and Rehabilitation | MD Margaux Forrester | | | | | | [place] | | | | | | [phone] | | | | | | | | +--------+---------+ + + + documented as of this encounter Visit Diagnoses Not on filedocumented in this encounter
--- OUTSIDE RECORDS SUMMARY | ~2019-06-19 | XMS | Encounter Summary ---
Demographics + + + | Address | [address] | | | [place] [address] | + + + | Home Phone | | + + + | Preferred Language | Unknown | + + + | Marital Status | Single | + + + | Roman Catholic Affiliation | 1074 | + + + | Race | Unknown | + + + | Ethnic Group | Unknown | + + + Author + + + | Author | [facility] | | | and [place] | + + + | Organization | [facility] | | | and [place] | + + + | Address | Unknown | + + + | Phone | Unavailable | + + + Support + + + + + | Name | Relationship | Address | Phone | + + + + + | Iraida Toure | ECON | Unknown | | + + + + + | Jael FabienHilario | ECON | [address] | | | | | [place] | | | | | [phone] | | + + + + + Care Team Providers + +------+ + | Care Dynamite Packing Machine Operator Name | Role | Phone | + +------+ + | Edwar Wilhelm PA-C | PCP | | + +------+ + Encounter Details +--------+ + + + + | Date | Type | Department | Care Team | Description | +--------+ + + + + | 08/14/ | Imaging | [facility] | Provider, | | | 2019 | Exam | [facility] | MD [address] | | | | | IMAG[facility] [address] | [address] | | | | | [address] | [place] [address] | | | | | [place] [address] | | | | | | [phone] | | | +--------+ + + + [...] [place] | | | | | | [address] | | | | | | | | +--------+---------+ + + + documented as of this encounter Procedures + +--------+ + + + | Procedure Name | Priori | Date/Time | Associated Diagnosis | Comments | | | ty | | | | + +--------+ + + + | XR FEMUR RIGHT 2+VW | Routin | 08/06/2018 | | Results for this | | | e | 12:05 AM | | procedure are in the | | | | PDT | | results section. | + +--------+ + + + documented in this encounter Results XR Femur Right 2+Vw (08/06/2018 12:05 AM PDT) + + | Specimen | + + | | + + + + + | Narrative | Performed At | + + + | External films for comparison only | [facility] | | | | | No results will be in the chart. | | + + + + +---------+ + + | Performing | Address | City/State/Zipcode | Phone Number | | Organization | | | | + +---------+ + + | [facility] | | | | + +---------+ + + documented in this encounter Visit Diagnoses Not on filedocumented in this encounter"
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
--- OUTSIDE RECORDS SUMMARY | ~2019-06-19 | XMS | Encounter Summary ---
Demographics + + + | Address | [address] | | | [place] [address] | + + + | Home Phone | | + + + | Preferred Language | Unknown | + + + | Marital Status | Single | + + + | Catholic Affiliation | 1074 | + + + | Race | Unknown | + + + | Ethnic Group | Unknown | + + + Author + + + | Author | [facility] | | | and [place] | + + + | Organization | [facility] | | | and [place] [...] [place] | | | | | [address] | | + + + + + Care Team Providers + +------+ + | Care Beef Boner Name | Role | Phone | + [...] + + + | Closed | | | Diagnoses | | Jarocho, | | | | | Alteration | | MD Jonathan | | | | | in chewing | | [address] | | | | | function | | [place], | | | | | Gastroesopha | | [place] [address] | | | | | geal reflux | | Phone: | | | | | disease | | [phone] | | | | | without | | Fax: | | | | | esophagitis | | [phone] | | | | | Abdominal | | | | | | | burning | | | | | | | sensation in | | | | | | | right upper | | | | | | | quadrant | | | | | | | Acute | | | | | | | constipation | | | | | | | Alteration | | | | | | | in chewing | | | | | | | function | | | | | | | [R13.10] | | | | | | | Gastroesopha | | | | | | | geal reflux | | | | | | | disease | | | | | | | without | | | | | | | esophagitis | | | | | | | [K21.9] | | | | | | | Abdominal | | | | | | | burning | | | | | | | sensation in | | | | | | | right upper | | | | | | | quadrant | | | | | | | [R10.11] | | | | | | | Acute | | | | | | | constipation | | | | | | | [K59.00] | | | | | | | Procedures | | | | | | | CO | | | | | | | ESOPHAGOGAST | | | | | | | RODUODENOSCO | | | | | | | PY TRANSORAL | | | | | | | DIAGNOSTIC | | | +--------+--------+ + + + + Encounter Details +--------+ + + + + | Date | Type | Department | Care Team | Description | +--------+ + + + + | 12/19/ | Hospital | [facility] | Jonathan Avendaño MD | Dysphagia (Primary | | 2015 | Encounter | [facility] | [address] | Dx); | | | | [address] | [place], [place] | Gastroesophageal | | | | [place], [place] | [address] | reflux disease | | | | [address] | [phone] | without esophagitis | | | | [phone] | | | +--------+ + + + [...] + + + | Blood Pressure | 132/81 | 12/19/2014 2:00 PM | | | | | PDT | | + + + + + | Pulse | 66 | 12/19/2014 2:00 PM | | | | | PDT | | + + + + + | Temperature | 36.7 C (98.1 F) | 12/19/2014 11:51 AM | | | | | PDT | | + + + + + | Respiratory Rate | 14 | 12/19/2014 2:00 PM | | | | | PDT | | + + + + + | Oxygen Saturation | 94% | 12/19/2014 2:00 PM | | | | | PDT | | + + + + + | Inhaled Oxygen | - | - | | | Concentration | | | | + + + + + | Weight | 99.8 kg (220 lb) | 12/19/2014 11:05 AM | | | | | PDT | | + + + + + | Height | 177.8 cm (5' 10") | 12/19/2014 11:05 AM | | | | | PDT | | + + + + + | Body Mass Index | 31.57 | 12/19/2014 11:05 AM | | | | | PDT | | + + + + + documented in this encounter Discharge Instructions Instructions Jonathan Avendaño MD - 12/18/2014Patient Discharge Instructions after an Endosco py Procedure ? You may resume your regular diet after discharge. ? Do not drive, operate machinery, make critical decisions or do activities that require co ordination or balance for 24hrs. ? Resume normal medications unless otherwise instructed. ? If biopsies were taken, the physician s office will contact you within 7-10 days. ? If a colonoscopy was performed, then you may continue to expel large amounts of air from your rectum. Please call the physician who did your procedure at [phone] if you have any questions or experience any of the following: ? Increasing abdominal pain, nausea, or vomiting. ? Chills and fever over 101F. ? New abdominal swelling or bloating. ? Signs of rectal bleeding (black or red stool). If you cannot get a hold of your physician, then call the [facility] [phone] . If necessary, report to the Emergency Department at [facility]. Quit smoking: If you smoke or have smoked within the last year, quitting is the most import ant thing you can do to protect and improve your health. documented in this encounter Medications at Time of Discharge + + + +---------+ + + | Medication | Sig | Dispensed | Refills | Start | End Date | | | | | | Date | | + + + +---------+ + + | acetaminophen | Take 2 tablets by | | 0 | 12/27/20 | | | (TYLENOL) 325 mg | [...] 0.8 mL under | | 0 | 12/27/20 | | | (LOVENOX) 80 mg/0.8 | [...] 0 | 03/22/19 | | | (MYCOSTATIN) 890902 | | | | 14 | | [...] + + + +---------+ + + | hunter (SENOKOT) | Take 1 tablet by | [...] [place] | | | | | | [address] | | | | | | | | +--------+---------+ + + + documented as of this encounter Procedures + +--------+ + + + | Procedure Name | Priori | Date/Time | Associated Diagnosis | Comments | | | ty | | | | + +--------+ + + + | EGD | | 12/19/2014 | Alteration in | | | | | 11:54 AM | chewing function | | | | | PDT | Gastroesophageal | | | | | | reflux disease | | | | | | without esophagitis | | | | | | Abdominal burning | | | | | | sensation in right | | | | | | upper quadrant | | | | | | Acute constipation | | + +--------+ + + + | EGD | Routin | 12/19/2014 | | Results for this | | | e | 11:46 AM | | procedure are in the | | | | PDT | | results section. | + +--------+ + + + | SURGICAL PATHOLOGY | Routin | 12/19/2014 | | Results for this | | EXAM | e | 12:00 AM | | procedure are in the | | | | PDT | | results section. | + +--------+ + + + documented in this encounter Results EGD (12/19/2014 11:46 AM PDT) + + | Specimen | + + | | + + + + -+ | Narrative | Performed At | + + -+ | | [facility] | | GastroenterologyPatient Name: Martinez Hartman Date: 12/19/2014 | [facility] | | 11:46 AMMRN: [id number] #: [id number] of : | | | 1970Admit Type: AmbulatoryAge: 44Room: [facility] 02Gender: MaleNote | | | Status: FinalizedAttending MD: MARYSE Merinorocedure: | | | Upper GI endoscopyIndications: Dyspepsia, Dysphagia, | | | Suspected esophageal reflux, NauseaProviders: Jnoathan Kang | | | MD Jarocho, Shana Love RN, Karie Vasquez | | | Sridhar, Free Lance Model, Blane Tompkins MD (Anesthesia | | | Staff)Referring MD: JANIE Boogie (Referring | | | MD)Medicines: Monitored Anesthesia CareComplications: | | | No immediate complications.Procedure: Pre-Anesthesia | | | Assessment: - Prior to the procedure, a History and Physical was | | | performed, and patient medications and allergies were | | | reviewed. The patient is competent. The risks and benefits of | | | the procedure and the sedation options and risks were discussed | | | with the patient. All questions were answered and informed | | | consent was obtained. Patient identification and proposed | | | procedure were verified by the physician, the nurse, the | | | anesthesiologist and the biodiesel processing technician in the pre-procedure area in the | | | endoscopy suite. Mental Status Examination: alert and oriented. | | | Airway Examination: normal oropharyngeal airway and neck | | | mobility. Respiratory Examination: clear to auscultation. CV | | | Examination: normal. Prophylactic Antibiotics: The patient does | | | not require prophylactic antibiotics. Prior Anticoagulants: | | | The patient has taken no previous anticoagulant or antiplatelet | | | agents. ASA Grade Assessment: III - A patient with severe | | | systemic disease. After reviewing the risks and benefits, the patient | | | was deemed in satisfactory condition to undergo the procedure. | | | The anesthesia plan was to use monitored anesthesia care (MAC). | | | Immediately prior to administration of medications, the | | | patient was re-assessed for adequacy to receive sedatives. The | | | heart rate, respiratory rate, oxygen saturations, blood | | | pressure, adequacy of pulmonary ventilation, and response to | | | care were monitored throughout the procedure. The physical | | | status of the patient was re-assessed after the procedure. After | | | obtaining informed consent, the endoscope was passed under direct | | | vision. Throughout the procedure, the patient's blood pressure, | | | pulse, and oxygen saturations were monitored continuously. The | | | Endoscope was introduced through the mouth, and advanced to the | | | third part of duodenum. The upper GI endoscopy was | | | accomplished without difficulty. The patient tolerated the | | | procedure well.Findings: The examined esophagus was normal. | | | Biopsies were taken with a cold forceps for histology. | | | Verification of patient identification for the specimen was | | | done by the physician and nurse using the patient's name and | | | date. Estimated blood loss was minimal. Patchy mildly | | | erythematous mucosa without bleeding was found in the entire | | | examined stomach. Biopsies were taken with a cold forceps for | | | histology. Verification of patient identification for the specimen was | | | done by the physician and nurse using the patient's name and | | | date. Estimated blood loss was minimal. No other | | | significant abnormalities were identified in a careful | | | examination of the stomach. The cardia and gastric fundus were | | | normal on retroflexion. The duodenal bulb, 2nd part of the | | | duodenum and 3rd part of the duodenum were normal. Biopsies | | | were taken with a cold forceps for histology. Verification of | | | patient identification for the specimen was done by the | | | physician and nurse using the patient's name and date. Estimated | | | blood loss was minimal.Impression: - Normal esophagus. | | | Biopsied. - Erythematous mucosa in the stomach. Biopsied. | | | - Normal duodenal bulb, 2nd part of the duodenum and 3rd part of the | | | duodenum. Biopsied.Recommendation: - Patient has a contact | | | number available for emergencies. The signs and symptoms of | | | potential delayed complications were discussed with the | | | patient. Return to normal activities tomorrow. Written discharge | | | instructions were provided to the patient. - Regular diet. | | | - Discharge patient to home. - Continue present medications. | | | - Await pathology results. - Return to GI clinic PRN. | | | - The findings and recommendations were discussed with the | | | patient.Jonathan Avendaño MD12/19/2014 12:08 PMNumber of Addenda: | | | 0Note Initiated On: 12/19/2014 11:46 AMScope Withdrawal Time: 0 hours | | | 0 minutes 0 seconds Total Procedure Duration: 0 hours 6 minutes 4 | | | seconds Scope In: 11:58:14 AMScope Out: 12:04:18 PM [place] | | | [facility], [facility] [place] [address] | | | [phone] | | | - Regular diet. | | | - Discharge patient to home. | | | - Continue present medications. | | | - Await pathology results. | | | - Return to GI clinic PRN. | | | - The findings and recommendations were discussed with the patient. | | |Jonathan Avendaño MD | | |12/19/2014 12:08 PM | | |Number of Addenda: 0 | | |Note Initiated On: 12/19/2014 11:46 AM | | |Scope Withdrawal Time: 0 hours 0 minutes 0 seconds | | |Total Procedure Duration: 0 hours 6 minutes 4 seconds | | |Scope In: 11:58:14 AM | | |Scope Out: 12:04:18 PM | | | [facility], [facility] [address] [place], [place] | | | [address] | | + + -+ + +---------+ + + | Performing | Address | City/State/Zipcode | Phone Number | | Organization | | | | + +---------+ + + | [facility] [place] | | | | + +---------+ + + Surgical Pathology Exam (12/19/2014 12:00 AM PDT) + + | Specimen | + + | | + + + + + | Narrative | Performed At | + + + | SPECIMEN(S): A DUODENAL BIOPSY SPECIMEN(S): B GASTRIC BIOPSY | [facility] | | SPECIMEN(S): C ESOPHAGEAL BIOPSY SPECIMEN SOURCE: A. DUODENAL | [facility] | | BIOPSY B. GASTRIC BIOPSY C. ESOPHAGEAL BIOPSY CLINICAL HISTORY: | | | K21.9 (gastroesophageal reflux disease without esophagitis), R10.11 | | | (right upper quadrant pain), K59.00 (constipation, unspecified) | | | MICROSCOPIC DESCRIPTION: Histologic sections of all submitted blocks | | | are examined by light microscopy. These findings, together with the | | | gross examination, support the pathologic diagnosis. FINAL | | | PATHOLOGIC DIAGNOSIS: A. Duodenal biopsy: - Benign duodenal | | | mucosa, negative for specific diagnostic abnormality. B. Gastric | | | biopsy: - Benign gastric mucosa with focal slight chronic | | | inflammation and focal slight fundic gland formation. - Negative | | | for evidence of Helicobacter organisms on routine stained sections. | | | C. Esophageal biopsy: - Benign esophageal mucosa, negative for | | | increased epithelial eosinophils. JVR:[facility]:C2NR GROSS | | | DESCRIPTION: A. The specimen labeled "Martinez Abbasi II" and | | | designated "duodenum on the requisition," is received in formalin and | | | consists of three pink-bailey color tissue fragments, 0.2 to 0.4 cm. | | | All into (A1). B. The specimen labeled "Martinez Abbasi II" | | | and designated "gastric on the requisition," is received in formalin | | | and consists of four pink-bailey color tissue fragments, 0.15 to 0.6 cm. | | | All into (B1). C. The specimen labeled "Martinez Abbasi II" | | | and designated esophagus on the requisition," is received in formalin | | | and consists of three cream-colored tissue fragments, 0.4 cm. All | | | into (C1). yyt:JVR:[facility] PERFORMING LABORATORY: Tissue processing | | | and slide preparation were performed by [employer], [facility] [address] | | | [facility], [address], [place] [address] (Infectious Disease Technician: Krishna | | | Norma Miranda CLIA#: [id number]). Professional interpretation was | | | performed by [employer], [facility] | | | Branch, [address] [facility], [place] [address] (Infectious Disease Technician: | | | Krishna Miranda M.D.; CLIA#: [id number]). Diagnostician: Krishna | | | Allan Miranda MD Pathologist Electronically Signed 12/22/2014 | | + + + + +---------+ + + | Performing | Address | City/State/Zipcode | Phone Number | | Organization | | | | + +---------+ + + | [facility] | | | | | [place] | | | | + +---------+ + + documented in this encounter Visit Diagnoses + + | Diagnosis | + + | Dysphagia - Primary Dysphagia, unspecified | + + | Gastroesophageal reflux disease without esophagitis Esophageal reflux | + + documented in this encounter Administered Medications + +---------+ +------+-------+------+ | Medication Order | MAR | Action | Dose | Rate | Site | | | Action | Date | | | | + +---------+ +------+-------+------+ | lactated ringers (LR) infusion | New Bag | 12/20/19 | | 100 | | | at 10-100 mL/hr, Intravenous, | | 15 11:40 | | mL/hr | | | CONTINUOUS, Starting 12/19/14 | | AM PDT | | | | | at 1130, TKO., Pre-op | | | | | | + +---------+ +------+-------+------+ +---+---+ | | | +---+---+ documented in this encounter
--- OUTSIDE RECORDS SUMMARY | ~2019-06-19 | XMS | Encounter Summary ---
Demographics + + + | Address | [address] | | | [place] [address] | + + + | Home Phone | | + + + | Preferred Language | Unknown | + + + | Marital Status | Single | + + + | Judaism Affiliation | 1074 | + + + | Race | Unknown | + + + | Ethnic Group | Unknown | + + + Author + + + | Author | [facility] | | | and [place] | + + + | Organization | [facility] | | | and [place] [...] [place] | | | | | [address] | | + + + + + Care Team Providers + +------+ + | Care Meat Washer Name | Role | Phone | + +------+ + | Edwar Wilhelm PA-C | PCP | | + +------+ + Encounter Details +--------+ + + + + | Date | Type | Department | Care Team | Description | +--------+ + + + + | 09/09/ | Documentati | [facility] | Tori Luis, | | | 2016 | on | [facility] PT | PT [address] | | | | | OP [address] | [place], [place] | | | | | [place], [place] | [address] | | | | | [address] | | | | | | [phone] | | | +--------+ + + + [...] + + documented as of this encounter Progress Notes Tori Luis PT - 09/10/2015 9:35 AM PDTFollow up emails x 2 to [facility] to check on the status of standing frameElectronically signed by Troi Luis PT at 7:40 PM PDTdocumented in this encounter Plan of Treatment +--------+---------+ + + + | Date | Type | Specialty | Care Team | Description | +--------+---------+ + + + | 07/18/ | Office | Physical Medicine | Chris Priest, | | | 2020 | Visit | and Rehabilitation | [address] | | | | | | [place] | | | | | | [address] | | | | | | | | +--------+---------+ + + + documented as of this encounter Visit Diagnoses + + | Diagnosis | + + | Impaired mobility and activities of daily living - Primary Mechanical problems with | | limbs | + + | Impaired functional mobility, balance, gait, and endurance | + + | Quadriplegia, C5-C7, incomplete (HCC) Quadriplegia, C5-C7, incomplete | + + | Posture imbalance Disorders of soft tissue, unspecified | + + | Neck pain Cervicalgia | + + documented in this encounter"
--- OUTSIDE RECORDS SUMMARY | ~2019-06-19 | XMS | Encounter Summary ---
Demographics + + + | Address | [address] | | | [place] [address] | + + + | Home Phone | | + + + | Preferred Language | Unknown | + + + | Marital Status | Single | + + + | Hoahaoism Affiliation | 1074 | + + + | Race | Unknown | + + + | Ethnic Group | Unknown | + + + Author + + + | Author | [facility] | | | and Narenana | + + + | Organization | [facility] | | | and [...] [place] | | | | | [address] | | + + + + + Care Team Providers + +------+ + | Care Quality Control Scientist Name | Role | Phone | + +------+ + | Edwar Wilhelm PA-C | PCP | | + +------+ + Reason for Visit + + + | Reason | Comments | + + + | Head Pain | | + + + Encounter Details +--------+ + + + + | Date | Type | Department | Care Team | Description | +--------+ + + + + | 11/09/ | Emergency | [facility] | Herman Troy, | Cephalgia (Primary | | 2013 | | [facility] | MD [address] | Dx); Constipation; | | | | CENTER [address] | [facility] | Urinary tract | | | | [place] | [place] [address] | infection; 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; | | | | [phone] | | Quadriplegia (HCC); | | | | | | Dehydration | +--------+ + + + + Social [...] + + + | Blood Pressure | 108/72 | 11/09/2013 6:59 AM | | | | | PDT | | + + + + + | Pulse | 57 | 11/09/2013 6:59 AM | | | | | PDT | | + + + + + | Temperature | 36 C (96.8 F) | 11/09/2013 1:47 AM | | | | | PDT | | + + + + + | Respiratory Rate | 13 | 11/09/2013 6:59 AM | | | | | PDT | | + + + + + | Oxygen Saturation | 94% | 11/09/2013 6:59 AM | | | | | PDT | | + + + + + | Inhaled Oxygen | - | - | | | Concentration | | | | + + + + + | Weight | 90.7 kg (200 lb) | 11/09/2013 1:47 AM | | | | | PDT | | + + + + + | Height | 177.8 cm (5' 10") | 11/09/2013 1:47 AM | | | | | PDT | | + + + + + | Body Mass Index | 28.7 | 11/09/2013 1:47 AM | | | | | PDT | | + + + + + documented in this encounter Discharge Instructions Instructions Herman Troy MD - 11/09/2013Take the medication as prescribed Increase your fluid intake Followup with your doctor in 3 days Turned immediately if your symptoms worsen AttachmentsThe following attachments cannot be sent through Care Everywhere.BLADDER INFECTI ON, MALE (ADULT) ([place])HEADACHE, UNSPECIFIED ([place])DEHYDRATION (ADULT) ([place])garry levi in this encounter Medications at Time of [...] 0 | 03/22/19 | | | (MYCOSTATIN) [id number] | | | | 14 | | [...] baclofen | 1 tablet by mouth | 120 | 3 | 10/30/19 | | | (LIORESAL) 20 mg | four times daily | tablet | | 14 | 5 | | tabletIndications: | | | | | | | Abdominal spasms, | | | | | | | Muscle spasm of both | | | | | | | lower legs | | | | | | + + + +---------+ + + | cephalexin | Take 1 capsule by | 40 | 0 | 11/10/19 | | | (KEFLEX) 500 mg | mouth 4 times daily | capsule | | 14 | 4 | | capsule | for 10 days. | | | | | + + + +---------+ + + | cholecalciferol | Take 1,000 Units by | | 0 | | | | (VITAMIN D-3) 5,000 | mouth Daily. | | | | 5 | | units/mL liquid | | | | | | + [...] + + + +---------+ + + | warfarin | Take 7.5 mg by mouth | | 0 | | | | (COUMADIN) 7.5 mg | Daily. 1/2 tablet | | | | 5 | | tablet | night | | | | | + + + +---------+ + + documented as of this encounter Plan of Treatment +--------+---------+ + + + | Date | Type | Specialty | Care Team | Description | +--------+---------+ + + + | 07/18/ | Office | Physical Medicine | Chris Priest, | | | 2019 | Visit | and Rehabilitation | MD [address]ico [address] | | | | | | [place] | | | | | | [address] | | | | | | | | +--------+---------+ + + + documented as of this encounter Procedures + +--------+ + + + | Procedure Name | Priori | Date/Time | Associated Diagnosis | Comments | | | ty | | | | + +--------+ + + + | LACTIC ACID | STAT | 11/09/2013 | | Results for this | | | | 6:45 AM | | procedure are in the | | | | PDT | | results section. | + +--------+ + + + | CULTURE, BLOOD | STAT | 11/09/2013 | | Results for this | | | | 5:17 AM | | procedure are in the | | | | PDT | | results section. | + +--------+ + + + | CULTURE, BLOOD | STAT | 11/09/2013 | | Results for this | | | | 5:13 AM | | procedure are in the | | | | PDT | | results section. | + +--------+ + + + | CBC WITH | STAT | 11/09/2013 | | Results for this | | DIFFERENTIAL | | 5:13 AM | | procedure are in the | | | | PDT | | results section. | + +--------+ + + + | LACTIC ACID | STAT | 11/09/2013 | | Results for this | | | | 5:13 AM | | procedure are in the | | | | PDT | | results section. | + +--------+ + + + | COMPREHENSIVE | STAT | 11/09/2013 | | Results for this | | METABOLIC PANEL | | 5:13 AM | | procedure are in the | | | | PDT | | results section. | + +--------+ + + + | URINALYSIS WITH | STAT | 11/09/2013 | | Results for this | | MICROSCOPIC WITH | | 4:33 AM | | procedure are in the | | CULTURE IF INDICATED | | PDT | | results section. | + +--------+ + + + | CULTURE, URINE | Routin | 11/09/2013 | | Results for this | | | e | 4:33 AM | | procedure are in the | | | | PDT | | results section. | + +--------+ + + + | XR ABDOMEN AP | STAT | 11/09/2013 | | Results for this | | | | 3:43 AM | | procedure are in the | | | | PDT | | results section. | + +--------+ + + + documented in this encounter Results Lactic Acid (11/09/2013 6:45 AM PDT) + +-------+ + + + | Component | Value | Ref Range | Performed | Pathologist | | | | | At | Signature | + +-------+ + + + | Lactate | 2.2 | 0.5 - 2.2 | [facility] | | | | | mmol/L | [facility] | | | | | | MEDICAL | | | | | | CENTER - | | | | | | LABORATORY | | + +-------+ + + + + + | Specimen | + + | Blood | + + + + + + + | Performing | Address | City/State/Zipcode | Phone Number | | Organization | | | | + + + + + | [facility] | [address] | [place] | [phone] | | [facility] | | [address] | | | - LABORATORY | | | | + + + + + | [facility] | [address] | [place] | | | [facility] | | [phone], [facility] | | | - LABORATORY | | | | + + + + + Culture, Blood (11/09/2013 5:17 AM PDT) + + + + + + | Component | Value | Ref Range | Performed | Pathologist | | | | | At | Signature | + + + + + + | Culture | Coagulase negative | | [facility] | | | | StaphylococcusComment: | | [facility] | | | | Probable contaminantNo | | MEDICAL | | | | further work-up to | | CENTER - | | | | follow. | | LABORATORY | | + + + + + + | Gram Stain | Gram positive cocci in | | [facility] | | | Result | tetrads and | | [facility] | | | | clustersComment: 1 of 4 | | MEDICAL | | | | bottles (aer.) | | CENTER - | | | | | | LABORATORY | | + + + + + + + + | Specimen | + + | Blood - Peripheral | | blood specimen | | (specimen) | + + + + + + + | Performing | Address | City/State/Zipcode | Phone Number | | Organization | | | | + + + + + | [facility] | [address] | [place] | [phone] | | [facility] | | [address] | | | - LABORATORY | | | | + + + + + | [facility] | [address] | [place], [place] | | | [facility] | | [address], [facility] | | | - LABORATORY | | | | + + + + + Culture, Blood (11/09/2013 5:13 AM PDT) + + + + + + | Component | Value | Ref Range | Performed | Pathologist | | | | | At | Signature | + + + + + + | Culture | No Growth | | [facility] | | | | | | [facility] | | | | | | MEDICAL | | | | | | CENTER - | | | | | | LABORATORY | | + + + + + + + + | Specimen | + + | Blood - Peripheral | | blood specimen | | (specimen) | + + + + + + + | Performing | Address | City/State/Zipcode | Phone Number | | Organization | | | | + + + + + | [facility] | [address] | [place] | [phone] | | [facility] | | [address] | | | - LABORATORY | | | | + + + + + | [facility] | [address] | [place], [place] | | | [facility] | | [address], [facility] | | | - LABORATORY | | | | + + + + + Lactic Acid (11/09/2013 5:13 AM PDT) + +---------+ + + + | Component | Value | Ref Range | Performed | Pathologist | | | | | At | Signature | + +---------+ + + + | Lactate | 2.9 (H) | 0.5 - 2.2 | [facility] | | | | | mmol/L | [facility] | | | | | | MEDICAL | | | | | | CENTER - | | | | | | LABORATORY | | + +---------+ + + + + + | Specimen | + + | Blood | + + + + + + + | Performing | Address | City/State/Zipcode | Phone Number | | Organization | | | | + + + + + | [facility] | [address] | [place] | [phone] | | [facility] | | [address] | | | - LABORATORY | | | | + + + + + | [facility] | [address] | [place] | | | [facility] | | [address], [facility] | | | - LABORATORY | | | | + + + + + Comprehensive Metabolic Panel (11/09/2013 5:13 AM PDT) + + + + + + | Component | Value | Ref Range | Performed | Pathologist | | | | | At | Signature | + + + + + + | Na | 144 | 136 - 149 | [facility] | | | | | mmol/L | [facility] | | | | | | MEDICAL | | | | | | CENTER - | | | | | | LABORATORY | | + + + + + + | K | 3.9 | 3.5 - 5.1 | [facility] | | | | | mmol/L | [facility] | | | | | | MEDICAL | | | | | | CENTER - | | | | | | LABORATORY | | + + + + + + | Cl | 109 | 98 - 109 mmol/L | [facility] | | | | | | [facility] | | | | | | MEDICAL | | | | | | CENTER - | | | | | | LABORATORY | | + + + + + + | CO2 | 27 | 24 - 31 mmol/L | [facility] | | | | | | [facility] | | | | | | MEDICAL | | | | | | CENTER - | | | | | | LABORATORY | | + + + + + + | Anion Gap | 8 | 3 - 16 mmol/L | [facility] | | | | | | [facility] | | | | | | MEDICAL | | | | | | CENTER - | | | | | | LABORATORY | | + + + + + + | Glucose | 95 | 70 - 109 mg/dL | [facility] | | | | | | [facility] | | | | | | MEDICAL | | | | | | CENTER - | | | | | | LABORATORY | | + + + + + + | BUN | 12 | 7 - 18 mg/dL | [facility] | | | | | | [facility] | | | | | | MEDICAL | | | | | | CENTER - | | | | | | LABORATORY | | + + + + + + | Creatinine | 0.73 | 0.60 - 1.30 | [facility] | | | | | mg/dL | [facility] | | | | | | MEDICAL | | | | | | CENTER - | | | | | | LABORATORY | | + + + + + + | eGFR if not | >60Comment: GLOMERULAR | >=60 | [facility] | | | | FILTRATION | mL/min/1.73m2 | [facility] | | | GAMBIAN | RATE,ESTIMATED | | MEDICAL | | | | mL/min/1.87x0Qutj than | | CENTER - | | | | 60 Chronic kidney | | LABORATORY | | | | disease,if found over a | | | | | | 3-month period.Less than | | | | | | 15 Kidney failureFor | | | | | | | | | | | | Americans,multiply the | | | | | | calculated GFR by 1.21. | | | | | | | | | | + + + + + + | Calcium | 8.4 | 8.3 - 10.5 | [facility] | | | | | mg/dL | [facility] | | | | | | MEDICAL | | | | | | CENTER - | | | | | | LABORATORY | | + + + + + + | Albumin | 3.4 | 3.2 - 5.0 g/dL | [facility] | | | | | | [facility] | | | | | | MEDICAL | | | | | | CENTER - | | | | | | LABORATORY | | + + + + + + | Bilirubin | 0.7 | 0.1 - 1.5 mg/dL | [facility] | | | Total | | | [facility] | | | | | | MEDICAL | | | | | | CENTER - | | | | | | LABORATORY | | + + + + + + | Total | 6.3 | 6.0 - 7.8 g/dL | [facility] | | | Protein | | | [facility] | | | | | | MEDICAL | | | | | | CENTER - | | | | | | LABORATORY | | + + + + + + | AST | 16 | 10 - 42 U/L | [facility] | | | | | | [facility] | | | | | | MEDICAL | | | | | | CENTER - | | | | | | LABORATORY | | + + + + + + | ALT | 13 | 6 - 45 U/L | [facility] | | | | | | [facility] | | | | | | MEDICAL | | | | | | CENTER - | | | | | | LABORATORY | | + + + + + + | Alkaline | 71 | 40 - 110 U/L | [facility] | | | Phosphatase | | | [facility] | | | | | | MEDICAL | | | | | | CENTER - | | | | | | LABORATORY | | + + + + + + | Globulin | 2.9 | g/dL | [facility] | | | | | | [facility] | | | | | | MEDICAL | | | | | | CENTER - | | | | | | LABORATORY | | + + + + + + | Albumin/Karly | 1.2 | | [facility] | | | bulin Ratio | | | [facility] | | | | | | MEDICAL | | | | | | CENTER - | | | | | | LABORATORY | | + + + + + + | BUN/Creatin | 16.4 | | [facility] | | | ine Ratio | | | [facility] | | | | | | MEDICAL | | | | | | CENTER - | | | | | | LABORATORY | | + + + + + + + + | Specimen | + + | Blood | + + + + + + + | Performing | Address | City/State/Zipcode | Phone Number | | Organization | | | | + + + + + | [facility] | [address] | [place] | [phone] | | [facility] | | [address] | | | - LABORATORY | | | | + + + + + | [facility] | [address] | [place] | | | [facility] | | [address], [facility] | | | - LABORATORY | | | | + + + + + CBC with Differential (11/09/2013 5:13 AM PDT) + + + + + + | Component | Value | Ref Range | Performed | Pathologist | | | | | At | Signature | + + + + + + | WBC | 11.6 (H) | 4.0 - 11.0 K/uL | [facility] | | | | | | [facility] | | | | | | MEDICAL | | | | | | CENTER - | | | | | | LABORATORY | | + + + + + + | RBC | 5.10 | 4.30 - 5.70 | [facility] | | | | | M/uL | [facility] | | | | | | MEDICAL | | | | | | CENTER - | | | | | | LABORATORY | | + + + + + + | Hemoglobin | 14.4 | 13.5 - 18.0 | [facility] | | | | | g/dL | [facility] | | | | | | MEDICAL | | | | | | CENTER - | | | | | | LABORATORY | | + + + + + + | Hematocrit | 43.2 | 40.0 - 51.0 % | [facility] | | | | | | [facility] | | | | | | MEDICAL | | | | | | CENTER - | | | | | | LABORATORY | | + + + + + + | MCV | 84.8 | 83.0 - 101.0 fL | [facility] | | | | | | [facility] | | | | | | MEDICAL | | | | | | CENTER - | | | | | | LABORATORY | | + + + + + + | MCH | 28.3 | 28.0 - 35.0 pg | [facility] | | | | | | [facility] | | | | | | MEDICAL | | | | | | CENTER - | | | | | | LABORATORY | | + + + + + + | MCHC | 33.3 | 32.0 - 36.0 | [facility] | | | | | g/dL | [facility] | | | | | | MEDICAL | | | | | | CENTER - | | | | | | LABORATORY | | + + + + + + | RDW-CV | 14.4 | <15.0 % | [facility] | | | | | | [facility] | | | | | | MEDICAL | | | | | | CENTER - | | | | | | LABORATORY | | + + + + + + | Platelet | 244 | 140 - 440 K/uL | [facility] | | | Count | | | [facility] | | | | | | MEDICAL | | | | | | CENTER - | | | | | | LABORATORY | | + + + + + + | MPV | 7.5 | fL | [facility] | | | | | | [facility] | | | | | | MEDICAL | | | | | | CENTER - | | | | | | LABORATORY | | + + + + + + | % | 77.5 | 45.0 - 82.0 % | [facility] | | | Neutrophils | | | [facility] | | | | | | MEDICAL | | | | | | CENTER - | | | | | | LABORATORY | | + + + + + + | % | 15.9 (L) | 20.0 - 45.0 % | [facility] | | | Lymphocytes | | | [facility] | | | | | | MEDICAL | | | | | | CENTER - | | | | | | LABORATORY | | + + + + + + | % Monocytes | 5.4 | 4.0 - 12.0 % | [facility] | | | | | | [facility] | | | | | | MEDICAL | | | | | | CENTER - | | | | | | LABORATORY | | + + + + + + | % | 0.5 | 0.0 - 5.0 % | [facility] | | | Eosinophils | | | [facility] | | | | | | MEDICAL | | | | | | CENTER - | | | | | | LABORATORY | | + + + + + + | % Basophils | 0.7 | 0.0 - 1.0 % | [facility] | | | | | | [facility] | | | | | | MEDICAL | | | | | | CENTER - | | | | | | LABORATORY | | + + + + + + | Absolute | 8.90 (H) | 1.80 - 8.50 | [facility] | | | Neutrophils | | K/uL | [facility] | | | | | | MEDICAL | | | | | | CENTER - | | | | | | LABORATORY | | + + + + + + | Absolute | 1.80 | 0.60 - 3.20 | [facility] | | | Lymphocytes | | K/uL | [facility] | | | | | | MEDICAL | | | | | | CENTER - | | | | | | LABORATORY | | + + + + + + | Absolute | 0.60 | 0.00 - 1.00 | [facility] | | | Monocytes | | K/uL | [facility] | | | | | | MEDICAL | | | | | | CENTER - | | | | | | LABORATORY | | + + + + + + | Absolute | 0.10 | 0.00 - 0.40 | [facility] | | | Eosinophils | | K/uL | [facility] | | | | | | MEDICAL | | | | | | CENTER - | | | | | | LABORATORY | | + + + + + + | Absolute | 0.10 | 0.00 - 0.10 | [facility] | | | Basophils | | K/uL | [facility] | | | | | | MEDICAL | | | | | | CENTER - | | | | | | LABORATORY | | + + + + + + + + | Specimen | + + | Blood | + + + + + + + | Performing | Address | City/State/Zipcode | Phone Number | | Organization | | | | + + + + + | [facility] | [address] | [place] | [phone] | | [facility] | | [address] | | | - LABORATORY | | | | + + + + + | [facility] | [address] | [place], [place] | | | [facility] | | [address] | | | - LABORATORY | | | | + + + + + Culture, Urine (11/09/2013 4:33 AM PDT) + + + + + + | Component | Value | Ref Range | Performed | Pathologist | | | | | At | Signature | + + + + + + | Culture | >100,000 CFU/ml | | [facility] | | | | Escherichia coli | | [facility] | | | | | | MEDICAL | | | | | | CENTER - | | | | | | LABORATORY | | + + + + + + | Culture | >100,000 CFU/ml | | [facility] | | | | Enterococcus | | [facility] | | | | faecalisComment: | | MEDICAL | | | | Combination therapy of | | CENTER - | | | | ampicillin, penicillin, | | LABORATORY | | | | or vancomycin (for | | | | | | susceptible strains), | | | | | | plus an aminoglycoside, | | | | | | is usually indicated for | | | | | | serious enterococcal | | | | | | infections, such as | | | | | | endocarditis, unless | | | | | | high-level resistance to | | | | | | both gentamicin and | | | | | | streptomycin is | | | | | | documented; such | | | | | | combinations are | | | | | | predicted to result in | | | | | | synergistic killing of | | | | | | the enterococcus. | | | | + + + + + + + + | Specimen | + + | Urine - Urine | | specimen obtained by | | single | | catheterization of | | bladder (specimen) | + + + + +--------+ + | Organism | Antibiotic | Method | Susceptibility | + + +--------+ + | Escherichia coli | Ampicillin | | >=32: Resistant | + + +--------+ + | Escherichia coli | Ampicillin + | | >=32: Resistant | | | Sulbactam | | | + + +--------+ + | Escherichia coli | Cefazolin | | <=4: Sensitive | + + +--------+ + | Escherichia coli | Cefoxitin | | 16: Intermediate | + + +--------+ + | Escherichia coli | Ceftazidime | | <=1: Sensitive | + + +--------+ + | Escherichia coli | Ceftriaxone | | <=1: Sensitive | + + +--------+ + | Escherichia coli | Ciprofloxacin | | >=4: Resistant | + + +--------+ + | Escherichia coli | Ertapenem | | <=0.5: Sensitive | + + +--------+ + | Escherichia coli | Gentamicin | | <=1: Sensitive | + + +--------+ + | Escherichia coli | Meropenem | | <=0.25: Sensitive | + + +--------+ + | Escherichia coli | Nitrofurantoin | | <=16: Sensitive | + + +--------+ + | Escherichia coli | Piperacillin + | | 8: Sensitive | | | Tazobactam | | | + + +--------+ + | Escherichia coli | Tobramycin | | <=1: Sensitive | + + +--------+ + | Escherichia coli | Trimethoprim + | | <=20: Sensitive | | | Sulfamethoxazole | | | + + +--------+ + | Enterococcus | Ampicillin | | <=2: Sensitive | | faecalis | | | | + + +--------+ + | Enterococcus | Ciprofloxacin | | <=0.5: Sensitive | | faecalis | | | | + + +--------+ + | Enterococcus | Levofloxacin | | 0.5: Sensitive | | faecalis | | | | + + +--------+ + | Enterococcus | Nitrofurantoin | | <=16: Sensitive | | faecalis | | | | + + +--------+ + | Enterococcus | Penicillin G | | 1.00: Sensitive | | faecalis | | | | + + +--------+ + | Enterococcus | Vancomycin | | 2: Sensitive | | faecalis | | | | + + +--------+ + + + + + + | Performing | Address | City/State/Zipcode | Phone Number | | Organization | | | | + + + + + | [facility] | [address] | [place] | [phone] | | [facility] | | [address] | | | - LABORATORY | | | | + + + + + | [facility] | [address] | [place], [place] | | | [facility] | | [address] | | | - LABORATORY | | | | + + + + + Urinalysis with Microscopic with Culture if Indicated (11/09/2013 4:33 AM PDT) + + + + + + | Component | Value | Ref Range | Performed | Pathologist | | | | | At | Signature | + + + + + + | Color, | Red (A) | Light Yellow, | [facility] | | | Urine | | Yellow | [facility] | | | | | | MEDICAL | | | | | | CENTER - | | | | | | LABORATORY | | + + + + + + | Clarity | Cloudy (A) | Clear | [facility] | | | | | | [facility] | | | | | | MEDICAL | | | | | | CENTER - | | | | | | LABORATORY | | + + + + + + | pH, Urine | 5.5 | 5.0 - 8.0 | [facility] | | | | | | [facility] | | | | | | MEDICAL | | | | | | CENTER - | | | | | | LABORATORY | | + + + + + + | Specific | >=1.030 | 1.001 - 1.030 | [facility] | | | [place], | | | [facility] | | | Urine | | | MEDICAL | | | | | | CENTER - | | | | | | LABORATORY | | + + + + + + | Protein, | 100 mg/dL (A) | Negative, | [facility] | | | Urine | | Trace, 30 mg/dL | [facility] | | | | | | MEDICAL | | | | | | CENTER - | | | | | | LABORATORY | | + + + + + + | Blood, | Large (A) | Negative | [facility] | | | Urine | | | [facility] | | | | | | MEDICAL | | | | | | CENTER - | | | | | | LABORATORY | | + + + + + + | Glucose, | Negative | Negative | [facility] | | | Urine | | | [facility] | | | | | | MEDICAL | | | | | | CENTER - | | | | | | LABORATORY | | + + + + + + | Ketones, | Trace (A) | Negative | [facility] | | | Urine | | | [facility] | | | | | | MEDICAL | | | | | | CENTER - | | | | | | LABORATORY | | + + + + + + | Bilirubin, | Small (A) | Negative | [facility] | | | Urine | | | [facility] | | | | | | MEDICAL | | | | | | CENTER - | | | | | | LABORATORY | | + + + + + + | Nitrite, | Positive (A) | Negative | [facility] | | | Urine | | | [facility] | | | | | | MEDICAL | | | | | | CENTER - | | | | | | LABORATORY | | + + + + + + | Leukocyte | Large (A) | Negative | [facility] | | | Esterase, | | | [facility] | | | Urine | | | MEDICAL | | | | | | CENTER - | | | | | | LABORATORY | | + + + + + + | Urobilinoge | 1.0 E.U./dL (A) | 0.2 E.U./dL | [facility] | | | n, Urine | | | [facility] | | | | | | MEDICAL | | | | | | CENTER - | | | | | | LABORATORY | | + + + + + + | White Blood | >100 (A) | 0 - 2 /HPF | [facility] | | | Cells, | | | [facility] | | | Urine | | | MEDICAL | | | | | | CENTER - | | | | | | LABORATORY | | + + + + + + | Red Blood | 15-25 (A) | 0 - 2 /HPF | [facility] | | | Cells, | | | [facility] | | | Urine | | | MEDICAL | | | | | | CENTER - | | | | | | LABORATORY | | + + + + + + | Squamous | 0-2 | 0 - 2 /LPF | [facility] | | | Epithelial | | | [facility] | | | Cells, | | | MEDICAL | | | Urine | | | CENTER - | | | | | | LABORATORY | | + + + + + + | Bacteria, | 4+ (A) | Negative /HPF | [facility] | | | Urine | | | [facility] | | | | | | MEDICAL | | | | | | CENTER - | | | | | | LABORATORY | | + + + + + + | Mucus, | Present (A) | Negative /LPF | [facility] | | | Urine | | | [facility] | | | | | | MEDICAL | | | | | | CENTER - | | | | | | LABORATORY | | + + + + + + | Urine | Urine Culture Set Up | | [facility] | | | Comment | | | [facility] | | | | | | MED[facility] | | | | | | CENTER - | | | | | | LABORATORY | | + + + + + + + + | Specimen | + + | Urine - Urine | | specimen obtained by | | single | | catheterization of | | bladder (specimen) | + + + + + + + | Performing | Address | City/[facility]/Zipcode | Phone Number | | Organization | | | | + + + + + | [facility] | [address] | [place] | [phone] | | [facility] | | [address] | | | - LABORATORY | | | | + + + + + | [facility] | [address] | [place] | | | [facility] | | [phone], [facility] | | | - LABORATORY | | | | + + + + + XR Abdomen AP (11/09/2013 3:43 AM PDT) + + | Specimen | + + | | + + + + + | Narrative | Performed At | + + + | EXAM: XR ABDOMEN 1 VW dated 11/09/2013 12:00 AM HISTORY:Abdominal | MISCELANIOUS | | pain COMPARISON: None. FINDINGS: 2 supine radiographs of the | LAB | | abdomen. No dilated loops of bowel. Stool and gas are present | | | throughout the colon. No abnormal soft tissue calcifications. | | | Osseous structures are grossly unremarkable. IMPRESSION - | | | Limited exam without evidence for gastrointestinal tract junction. | | | Dictated and Signed by: Max Durant MD Electronically signed: | | | 11/09/2013 10:59 AM | | + + + + + | Procedure Note | + + | Gideon, Rad Results In - 11/09/2013 11:02 AM PDT EXAM: XR ABDOMEN 1 VW dated 11/09/2013 | | 12:00 AMHISTORY:Abdominal painCOMPARISON: None.FINDINGS: 2 supine radiographs of the | | abdomen. No dilated loops of bowel. Stool and gas are present throughout the colon. No | | abnormal soft tissuecalcifications. Osseous structures are grossly | | unremarkable.IMPRESSION -Limited exam without evidence for gastrointestinal tract | | junction.Dictated and Signed by: Max Durant MD Electronically signed: 11/09/2013 | | 10:59 AM | |Stool and gas are present throughout the colon. No abnormal soft tissue | |calcifications. Osseous structures are grossly unremarkable. | | | |IMPRESSION - | | | |Limited exam without evidence for gastrointestinal tract junction. | | | |Dictated and Signed by: Max Durant MD | | Electronically signed: 11/09/2013 10:59 AM | + + + +---------+ + + | Performing | Address | City/State/Zipcode | Phone Number | | Organization | | | | + +---------+ + + | [facility] | | | [phone] | + +---------+ + + | [facility] | | | [phone] | + +---------+ + + documented in this encounter Visit Diagnoses + + | Diagnosis | + + | Cephalgia - Primary Headache | + + | Constipation Unspecified constipation | + + | Urinary tract infection Urinary tract infection, site not specified | + + | Autonomic dysreflexia | + + | Quadriplegia (HCC) Quadriplegia, unspecified | + + | Dehydration | + + documented in this encounter Administered Medications + +---------+ +------+-------+------+ | Medication Order | MAR | Action | Dose | Rate | Site | | | Action | Date | | | | + +---------+ +------+-------+------+ | cefTRIAXone (ROCEPHIN) 2 g in | New Bag | 11/10/19 | 2 g | 100 | | | sodium chloride 0.9% 50 mL IVPB | | 14 5:31 | | mL/hr | | | 2 g, Intravenous, Administer over | | AM PDT | | | | | 30 Minutes, ONCE, 11/09/13 at | | | | | | | 0530, For 1 dose, Activate | | | | | | | system and mix before use., | | | | | | + +---------+ +------+-------+------+ +---+---+ | | | +---+---+ + +-------+ +------+---+---+ | HYDROmorphone (PF) (DILAUDID) 1 | Given | 11/10/19 | 1 mg | | | | mg/mL injection 1 mg 1 mg, | | 14 2:36 | | | | | Intravenous, ONCE, 11/09/13 at | | AM PDT | | | | | 0230, For 1 dose | | | | | | + +-------+ +------+---+---+ +---+---+ | | | +---+---+ + +-------+ +------+---+---+ | ondansetron (ZOFRAN) injection | Given | 11/10/19 | 4 mg | | | | 4 mg 4 mg, Intravenous, ONCE, | | 14 2:36 | | | | | 11/09/13 at 0230, For 1 dose | | AM PDT | | | | + +-------+ +------+---+---+ +---+---+ | | | +---+---+ + +---------+ +--------+-------+---+ | sodium chloride 0.9% (NS) 1,000 | New Bag | 11/10/19 | 1,000 | 1000 | | | mL bolus 1,000 mL, Intravenous, | | 14 4:15 | mLs | mL/hr | | | Administer over 1 Hours, ONCE, | | AM PDT | | | | | 11/09/13 at 0430, For 1 dose | | | | | | + +---------+ +--------+-------+---+ +---+---+ | | | +---+---+ + +---------+ +--------+-------+---+ | sodium chloride 0.9% (NS) 1,000 | New Bag | 11/10/19 | 1,000 | 1000 | | | mL bolus 1,000 mL, Intravenous, | | 14 5:32 | mLs | mL/hr | | | Administer over 1 Hours, ONCE, | | AM PDT | | | | | 11/09/13 at 0600, For 1 dose | | | | | | + +---------+ +--------+-------+---+ +---+---+ | | | +---+---+ + +-------+ +---------+---+---+ | sodium phosphate (FLEET) enema | Given | 11/10/19 | 133 mLs | | | | 133 mL 133 mL, Rectal, ONCE, Sat | | 14 2:42 | | | | | 11/09/13 at 0230, For 1 dose | | AM PDT | | | | + +-------+ +---------+---+---+ +---+---+ | | | +---+---+ documented in this encounter
--- OUTSIDE RECORDS SUMMARY | ~2019-06-19 | XMS | Encounter Summary ---
Demographics + + + | Address | [address] | | | [place] [address] | + + + | Home Phone | | + + + | Preferred Language | Unknown | + + + | Marital Status | Single | + + + | Mosque Affiliation | 1074 | + + + | Race | Unknown | + + + | Ethnic Group | Unknown | + + + Author + + + | Author | [facility] | | | and [place] | + + + | Organization | [facility] | | | and [...] [place] | | | | | [address] | | + + + + + Care Team Providers + +------+ + | Care Electrician Substation Name | Role | Phone | + +------+ + | Edwar Wilhelm PA-C | PCP | | + +------+ + Reason for Visit + + + | Reason | Comments | + + + | Urinary Catheter | | | Insertion | | + + + Encounter Details +--------+ + + + + | Date | Type | Department | Care Team | Description | +--------+ + + + + | 04/08/ | Emergency | [facility] | Reagan Clifford MD | Urinary catheter | | 2016 | | [facility] | [address] | ([place]) change | | | | CENTER [address] | [place] | required (Primary | | | | [place] | [address] | Dx) | | | | [address] | | | | | | [phone] | | | +--------+ + + + [...] + + + | Blood Pressure | 175/83 | 04/08/2015 4:52 PM | | | | | PST | | + + + + + | Pulse | 73 | 04/08/2015 4:52 PM | | | | | PST | | + + + + + | Temperature | 37.8 C (100 F) | 04/08/2015 4:52 PM | | | | | PST | | + + + + + | Respiratory Rate | 18 | 04/08/2015 4:52 PM | | | | | PST | | + + + + + | Oxygen Saturation | 99% | 04/08/2015 4:52 PM | | | | | PST | | + + + + + | Inhaled Oxygen | - | - | | | Concentration | | | | + + + + + | Weight | 98 kg (216 lb) | 04/08/2015 4:52 PM | | | | | PST | | + + + + + | Height | 177.8 cm (5' 10") | 04/08/2015 4:52 PM | | | | | PST | | + + + + + | Body Mass Index | 30.99 | 04/08/2015 4:52 PM | | | | | PST | | + + + + + documented in this encounter Discharge Instructions Reagan Diaz MD - 04/08/2015Follow-up with urology as planned Return for fever, vomiting, other new complaints documented in this encounter Medications at Time [...] 2 tablets by | | 0 | 01/24/20 | | | (TUMS) 500 mg | [...] 0 | 03/22/19 | | | (MYCOSTATIN) 994666 | | | | 14 | | [...] [place] | | | | | | [address] | | | | | | | | +--------+---------+ + + + documented as of this encounter Visit Diagnoses + + | Diagnosis | + + | Urinary catheter ([place]) change required - Primary Fitting and adjustment of urinary | | device | + + documented in this encounter
--- OUTSIDE RECORDS SUMMARY | ~2019-06-19 | XMS | Encounter Summary ---
Demographics + + + | Address | [address] | | | [place] [address] | + + + | Home Phone | | + + + | Preferred Language | Unknown | + + + | Marital Status | Single | + + + | Faith Affiliation | 1074 | + + + | Race | Unknown | + + + | Ethnic Group | Unknown | + + + Author + + + | Author | and [facility] | | | and [place] | + + + | Organization | [facility] | | | and [...] [place] | | | | | [address] | | + + + + + Care Team Providers + +------+ + | Care Angledozer Operator Name | Role | Phone | + +------+ + | Edwar Wilhelm PA-C | PCP | | + +------+ + Encounter Details +--------+ + + + + | Date | Type | Department | Care Team | Description | +--------+ + + + + | 07/09/ | Hospital | [facility] | Johnny Rosales, | | | 2013 | Encounter | MED CTR ACUTE | PT [address] | | | | | PHYSICAL THERAPY | [place], [place] | | | | | [address] [place] | [address] | | | | | [place] [address] | | | | | | [phone] | | | +--------+ + + + + Social History + +-------+ +--------+------+ | Tobacco Use | Types | Packs/Day | Years | Date | | | | | Used | | + +-------+ +--------+------+ | Never Assessed | | | | | + +-------+ +--------+------+ + + + | Sex Assigned at [...] Bid to rash | | 0 | 01/24/20 | | | (MYCOSTATIN) 261959 | | | | 14 | | [...] + +---------+ + + | baclofen | Take 10 mg by mouth | | 0 | | | | (LIORESAL) 10 mg | 3 times daily. | | | | 4 | | tablet | | | | | | + + + +---------+ + + | cefdinir (OMNICEF) | Take 1 capsule by | 20 | 0 | 07/10/19 | | | 300 mg capsule | mouth 2 times daily | capsule | | 14 | 4 | | | for 10 days. | | | [...] | | (COUMADIN) 7.5 mg | Daily. 02/28 tablet | | | | 5 | [...] [place] | | | | | | [address] | | | | | | | | +--------+---------+ + + + documented as of this encounter Visit Diagnoses Not on filedocumented in this encounter"
--- OUTSIDE RECORDS SUMMARY | ~2019-06-19 | XMS | Encounter Summary ---
Demographics + + + | Address | [address] | | | [place] [address] | + + + | Home Phone | | + + + | Preferred Language | Unknown | + + + | Marital Status | Single | + + + | Restoration Affiliation | 1074 | + + + | Race | Unknown | + + + | Ethnic Group | Unknown | + + + Author + + + | Author | [facility] | | | and [place] | + + + | Organization | [facility] | | | and [place] [...] [place] | | | | | [address] | | + + + + + Care Team Providers + +------+ + | Care Operations Support Manager Name | Role | Phone | + +------+ + | Edwar Wilhelm PA-C | PCP | | + +------+ + Encounter Details +--------+ + + + + | Date | Type | Department | Care Team | Description | +--------+ + + + + | 04/21/ | Documentati | [facility] | Ravi Della Velásquez, | | | 2016 | on | MED CTR THERAPY PT | PT [address] | | | | | OP [address] | [place], [place] | | | | | [place], [place] | [address] | | | | | [address] | | | | | | [phone] | | | +--------+ + + + [...] documented as of this encounter Progress Notes Della Ren, NADER - 04/21/2015 12:[address] [facility] OP [address] [facility] [address] Cancellation/No Show Date: 04/21/2015 Patient Information Patient Name: Martinez Abbasi II Date of : 1970 Age: 44 y.o. Reason for missed visit: Pt called to cancel due to transportation issues Phone call placed: no Plan: Cont with POC Electronically signed by: Della Ren PT, 04/21/2015 12:57 Patient Name: Martinez Abbasi II/: 1970/ documented [facility] Plan of Treatment +--------+---------+ + + + | Date | Type | Specialty | Care Team | Description | +--------+---------+ + + + | 07/18/ | Office | Physical Medicine | Chris Priest, | | | 2019 | Visit | and Rehabilitation | MD Margaux Forrester | | | | | | [place] | | | | | | [address] | | | | | | | | +--------+---------+ + + + documented as of this encounter Visit Diagnoses Not on filedocumented in this encounter"
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
--- OUTSIDE RECORDS SUMMARY | ~2019-06-19 | XMS | Encounter Summary ---
Demographics + + + | Address | [address] | | | [place] [address] | + + + | Home Phone | | + + + | Preferred Language | Unknown | + + + | Marital Status | Single | + + + | Alevism Affiliation | 1074 | + + + | Race | Unknown | + + + | Ethnic Group | Unknown | + + + Author + + + | Author | [facility] | | | and Narenana | + + + | Organization | [facility] | | | and [place] [...] [place] | | | | | [address] | | + + + + + Care Team Providers + +------+ + | Care Patent Counsel Name | Role | Phone | + [...] | | | | function | | [place], | | | | | Gastroesopha | | [place] [address] | | | | | geal reflux | | Phone: | | | | | disease | | [phone] | | | | | without | | Fax: | | | | | esophagitis | | [phone] | | | | | Abdominal | [...] | | | | | | | [place] | | | | | | | [...] Description | +--------+---------+ + + + | 12/19/ | Surgery | [facility] | Jonathan Avendaño MD | EGD - PT IS | | 2014 | | MED CTR MP INTRA OP | [address] | PARAPLEGIC | | | | [address] | [place], [place] | | | | | [place], [place] | [address] | | | | | [address] | [phone] | | | | | [phone] | | | +--------+---------+ + + + Social History [...] the physician who did your procedure at [phone] if you have any questions or experience any of the following: ? Increasing abdominal pain, nausea, or vomiting. ? Chills and fever over 101F. ? New abdominal swelling or bloating. ? Signs of rectal bleeding (black or red stool). If you cannot get a hold of your physician, then call the [facility] [phone] . If necessary, report to the Emergency Department at [facility]. Quit smoking: If you smoke or have [...] 0 | 03/22/19 | | | (MYCOSTATIN) [id number] | | | | 14 | | [...] [place] | | | | | | [address] | | | | | | | [...] | [facility] | | GastroenterologyPatient Name: Martinez WestOpalrocedure Date: 12/19/2014 | PROVATION | | 11:46 AMMRN: [id number] #: [id number] of : | | | 1970Admit Type: AmbulatoryAge: 44Room: [facility] 02Gender: MaleNote | | | Status: FinalizedAttending MD: Jonathan Avendaño [facility]: | | | Upper GI endoscopyIndications: Dyspepsia, Dysphagia, | | | Suspected esophageal reflux, NauseaProviders: Jonathan Kang | | | MD Jarocho, Shana Love, RN, Karie Vasquez | | | Sridhar, Nuclear Plant Operator, Blane Tompkins MD (Anesthesia | | | [...] the | | | anesthesiologist and the dental technician in the pre-procedure area in the [...] Scope In: 11:58:14 AMScope Out: 12:04:18 PM [place] | | | [facility], [address] [place] [address] | | | [phone] | | | - Regular diet. | [...] |Scope Out: 12:04:18 PM | | | [facility], [address] [place] [address] | | | [phone] | | + + -+ + +---------+ + + | Performing | Address | City/State/[facility] Corporationcode | Phone Number | | Organization | [...] for | | | increased epithelial eosinophils. JVR:[facility]:C2NR GROSS | | | DESCRIPTION: A. The [...] cm. All | | | into (C1). yyt:JVR:[facility] PERFORMING LABORATORY: Tissue processing | | | and slide preparation were performed by [facility], [facility] [address] | | | [facility], [address], [place] [address] (Health Information Systems Technician: Krishna | | | Norma Miranda CLIA#: [id number]). Professional interpretation was | | | performed by [facility], [facility] | | | Branch, [address] [facility], [place] [address] (Health Information Systems Technician: | | | Krishna Miranda M.D.; CLIA#: [id number]). Diagnostician: Krishna | | | Allan Miranda [...] + | Diagnosis | + + | Alteration in chewing function | + + | Gastroesophageal reflux disease without esophagitis Esophageal reflux | + + | Abdominal burning sensation in right upper quadrant | + + | Acute constipation Unspecified constipation | + + documented in this encounter [...]
--- OUTSIDE RECORDS SUMMARY | ~2019-06-19 | XMS | Encounter Summary ---
Demographics + + + | Address | [address] | | | [place] [address] | + + + | Home Phone | | + + + | Preferred Language | Unknown | + + + | Marital Status | Single | + + + | Religion Affiliation | 1074 | + + + | Race | Unknown | + + + | Ethnic Group | Unknown | + + + Author + + + | Author | [facility] | | | and [place] | + + + | Organization | [facility] | | | and [...] [place] | | | | | [address] | | + + + + + Care Team Providers + +------+ + | Care Hydraulic Tester Name | Role | Phone | + +------+ + | Edwar Wilhelm PA-C | PCP | | + +------+ + Encounter Details +--------+ + + + + | Date | Type | Department | Care Team | Description | +--------+ + + + + | 04/15/ | Documentati | [facility] | Trav Della Velásquez, | | | 2016 | on | MED CTR THERAPY PT | PT [address] | | | | | OP [address] | [place], [place] | | | | | [place], [place] | [address] | | | | | [address] | | | | | | [phone] | | | +--------+ + + + [...] encounter Progress Notes Della Ren, NADER - 04/15/2015 1[facility] [address] [place] [address] Cancellation Date: 04/15/2015 Patient Information Patient Name: Martinez Abbasi II Date of : 1970 Age: 44 y.o. Reason for missed visit: pt called to cancel appt.; stated that he is having complications Phone call placed: no Plan: Cont with POC Electronically signed by: Della Ren PT, 04/15/2015 13:30 Patient Name: Martinez Abbasi II/: 1970/ documented [...] [place] | | | | | | [address] | | | | | | | | +--------+---------+ + + + documented as of this encounter Visit Diagnoses Not on filedocumented in this encounter"
--- OUTSIDE RECORDS SUMMARY | ~2019-06-19 | XMS | Encounter Summary ---
Demographics + + + | Address | [address] | | | [place] [address] | + + + | Home Phone | | + + + | Preferred Language | Unknown | + + + | Marital Status | Single | + + + | Evangelical Affiliation | 1074 | + + + | Race | Unknown | + + + | Ethnic Group | Unknown | + + + Author + + + | Author | [facility] | | | and [place] | + + + | Organization | [facility] | | | [...] [place] | | | | | [address] | | + + + + + Care Team Providers + +------+ + | Care Dedicated Owner Operator Name | Role | Phone | [...] + + | 04/17/ | Emergency | [facility] | [place] | Autonomic | | 2015 | | MED CTR EMERGENCY | Eliu Garcia MD [address] | dysreflexia (Primary | | | | CENTER [address] | [address] [place] | Dx); Complication, | | | | [place], [place] | [place] [address] | suprapubic catheter | | | | [address] | [phone] | obstruction, initial | | | | [phone] | | encounter (HCC) | +--------+ + [...] 0 | 03/22/19 | | | (MYCOSTATIN) [id number] | | | | 14 | | [...] [place] | | | | | | [address] | | | | | | | | +--------+---------+ + + + documented as of this encounter Visit Diagnoses + + | Diagnosis | + + | Autonomic dysreflexia - Primary | + + | Complication, suprapubic catheter obstruction, initial encounter (HCC) | + + documented in this encounter"
--- OUTSIDE RECORDS SUMMARY | ~2019-06-19 | XMS | Encounter Summary ---
Demographics + + + | Address | [address] | | | [place] [address] | + + + | Home Phone | | + + + | Preferred Language | Unknown | + + + | Marital Status | Single | + + + | Anglican Affiliation | 1074 | + + + | Race | Unknown | + + + | Ethnic Group | Unknown | + + + Author + + + | Author | [facility] | | | and [place] | + + + | Organization | [facility] | | | and [place] [...] [place] | | | | | [address] | | + + + + + Care Team Providers + +------+ + | Care Paint Spray Tender Name | Role | Phone | + +------+ + | Edwar Wilhelm PA-C | PCP | | + +------+ + Encounter Details +--------+ + + + + | Date | Type | Department | Care Team | Description | +--------+ + + + + | 02/05/ | Documentati | [facility] | Ravi Della Velásquez, | | | 2015 | on | MED CTR THERAPY PT | PT [address] | | | | | OP [address] | [place], [place] | | | | | [place], [place] | [address] | | | | | [address] | | | | | | [phone] | | | +--------+ + + + [...] as of this encounter Progress Notes Della Ren PT - 02/05/2015 1[facility] [address] [place] [address] Cancellation Date: 02/05/2015 Patient Information Patient Name: Martinez Abbasi II Date of : 1970 Age: 44 y.o. Reason for missed visit: pt called to cancel PT EVAL due to "having trouble moving" Phone call placed: no Plan: Front office to re-schedule. Electronically signed by: Della Ren PT, 02/05/2015 13:06 Patient Name: Martinez Abbasi II/: 1970/ [facility] Plan of Treatment +--------+---------+ + + + | Date | Type | Specialty | Care Team | Description | +--------+---------+ + + + | 07/18/ | Office | Physical Medicine | Chris Priest, | | | 2019 | Visit | and Rehabilitation | MD Damico [address] | | | | | | [place] | | | | | | [address] | | | | | | | | +--------+---------+ + + + documented as of this encounter Visit Diagnoses Not on filedocumented in this encounter
--- OUTSIDE RECORDS SUMMARY | ~2019-06-19 | XMS | Encounter Summary ---
Demographics + + + | Address | [address] | | | [place] [address] | + + + | Home Phone | | + + + | Preferred Language | Unknown | + + + | Marital Status | Single | + + + | Jehovah'S Witness Affiliation | 1074 | + + + | Race | Unknown | + + + | Ethnic Group | Unknown | + + + Author + + + | Author | [facility] | | | and [place]ren[place] | + + + | Organization | [facility] | | | and [...] [place] | | | | | [address] | | + + + + + Care Team Providers + +------+ + | Care Personalized Living Manager Nurse Name | Role | Phone | + +------+ + | Edwar Wilhelm PA-C | PCP | | + +------+ + Encounter Details +--------+ + + + + | Date | Type | Department | Care Team | Description | +--------+ + + + + | 03/02/ | Hospital | [facility] | Chase Montalvo, | | | 2017 | Encounter | [facility] | [address] | | | | | [address] | [address] | | | | | [place], [place] | [place] [address] | | | | | [address] | [phone] | | | | | [phone] | | | +--------+ + + + [...] | 0 | /20 | | | (MICATIN) 2% cream | [...] 0 | 03/22/19 | | | (MYCOSTATIN) [id number] | | | | 14 | | [...] documented as of this encounter Progress Notes Shonda Gonzales Provider Unknown - 03/02/2016 10:16 AM PSTFormatting of this note m ight be different from the original. Nurse Progress Note by Steffany Wiseman RN at 03/02/16 1016 Author: Steffany Wiseman RN Service: General Surgery Author Type: Registered Nurse Filed: 03/02/16 1017 Date of Service: 03/02/16 1016 Status: Signed Fast Food Restaurant Manager: Steffany Wiseman RN (Registered Nurse) Patient discharged home with family. Patient has all personal belongings, discharge instru ctions and prescriptions. We discussed, skin care, activity, diet, pain control, follow up care and appointments along with new prescribed medications. Patient expressed understandin g and had no questions. docume nted in this encounter Plan of [...] [place] | | | | | | [address] | | | | | | | | +--------+---------+ + + + documented as of this encounter Visit Diagnoses Not on filedocumented in this encounter
--- OUTSIDE RECORDS SUMMARY | ~2019-06-19 | XMS | Encounter Summary ---
Demographics + + + | Address | [address] | | | [place] [address] | + + + | Home Phone | | + + + | Preferred Language | Unknown | + + + | Marital Status | Single | + + + | Denominational Affiliation | 1074 | + + + | Race | Unknown | + + + | Ethnic Group | Unknown | + + + Author + + + | Author | [facility] | | | and Narenana | + + + | Organization | [facility] | | | and [...] [place] | | | | | [address] | | + + + + + Care Team Providers + +------+ + | Care Poultry Hatchery Man Name | Role | Phone | + +------+ + | Edwar Wilhelm PA-C | PCP | | + +------+ + Encounter Details +--------+ + + + + | Date | Type | Department | Care Team | Description | +--------+ + + + + | 12/22/ | Hospital | [facility] | Jonathan Avendaño MD | Abdominal pain, | | 2015 | Encounter | MED CTR ULTRASOUND | [address] | right upper quadrant | | | | [address] [place] | [place], [place] | | | | | [place], [place] | [address] | | | | | [address] | [phone] | | | | | [phone] | | | | | | | [...] 0 | 03/22/19 | | | (MYCOSTATIN) [id number] | | | | 14 | | [...] [place] | | | | | | [address] | | | | | | | [...] UPPER QUADRANT ULTRASOUND: 12/22/2014 11:56 AM | [facility] | | CLINICAL HISTORY: RUQ pain, rule out hepatomegaly COMPARISON:None | [facility] | | FINDINGS: Liver:The liver is of [...] | [facility] | [address] | [place] | [phone] | | [facility] | | [address] | | | - IMAGING | | | | + + + + + documented in this encounter Visit Diagnoses + + | Diagnosis | + + | Abdominal pain, right upper quadrant | + + documented in this encounter"
--- OUTSIDE RECORDS SUMMARY | ~2019-06-19 | XMS | Encounter Summary ---
Demographics + + + | Address | [address] | | | [place] [address] | + + + | Home Phone | | + + + | Preferred Language | Unknown | + + + | Marital Status | Single | + + + | Pentecostal Affiliation | 1074 | + + + | Race | Unknown | + + + | Ethnic Group | Unknown | + + + Author + + + | Author | [facility] | | | and [place] | + + + | Organization | [facility] | [...] [place] | | | | | [address] | | + + + + + Care Team Providers + +------+ + | Care Sample Washer Name | Role | Phone | + +------+ + | Edwar Wilhelm PA-C | PCP | | + +------+ + Encounter Details +--------+ + + + + | Date | Type | Department | Care Team | Description | +--------+ + + + + | 04/10/ | Documentati | [facility] | Trav Della Velásquez, | | | 2016 | on | MED CTR THERAPY PT | PT [address] | | | | | OP [address] | [place], [place] | | | | | [place], [place] | [address] | | | | | [address] | | | | | | [phone] | | | +--------+ + + + [...] encounter Progress Notes Della Ren, NADER - 04/10/2015 11:[facility] [address] [facility] [address] Cancellation/No Show Date: 04/10/2015 Patient Information Patient Name: Martinez Abbasi II Date of : 1970 Age: 44 y.o. Reason for missed visit: Pt called to cancel due to illness Phone call placed: no Plan: Cont with POC Electronically signed by: Della Ren PT, 04/10/2015 11:24 Patient Name: Martinez Abbasi II/: 1970/ documented in this [facility] nter Plan of Treatment +--------+---------+ + + + | Date | Type | Specialty | Care Team | Description | +--------+---------+ + + + | 07/18/ | Office | Physical Medicine | Chris Priest, | | | 2019 | Visit | and Rehabilitation | MD Margaux Forrester | | | | | | [place] | | | | | | [address] | | | | | | | | +--------+---------+ + + + documented as of this encounter Visit Diagnoses Not on filedocumented in this encounter"
--- OUTSIDE RECORDS SUMMARY | ~2019-06-19 | XMS | Encounter Summary ---
Demographics + + + | Address | [address] | | | [place] [address] | + + + | Home Phone | | + + + | Preferred Language | Unknown | + + + | Marital Status | Single | + + + | Samaritan Affiliation | 1074 | + + + | Race | Unknown | + + + | Ethnic Group | Unknown | + + + Author + + + | Author | [facility] | | | and Narenana | + + + | Organization | [facility] | [...] [place] | | | | | [address] | | + + + + + Care Team Providers + +------+ + | Care Bus Analyst Name | Role | Phone | + [...] | | Urinary | | [address] | | | | | tract | | [place], | | | | | infection | | [place] | | | | | Fever | | [address] | | | | | Hematuria, | | Phone: | | | | | gross | | [phone] | | | | | Quadriplegia | | Fax: | | | | | following | | [phone] | | | | | spinal cord | | | | | | | injury (HCC) | | | | | | [...] + + | 07/05/ | Hospital | [facility] | [place], | Hematuria, gross | | 2013 - | Encounter | [facility] | [address] | (Primary Dx); | | | | [address] | [facility] [place] | 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/ | | [place] [address] | [place] [address] | coagulopathy, | | 2013 | | [phone] | [phone] | initial encounter; | | | | | | Fever; Urinary tract | | | | | Owen Gauthier, | infection; | | | | | [address] | Quadriplegia | | | | | [place] | following spinal | | | | | [address] | cord injury ([facility]); | | | | | | Coumadin toxicity, | | | | | Chase Russ, | initial encounter; | | | | | [address] | Septic shock ([facility]); | | | | | [place] | Altered mental | | | | | [address] | status; Acute renal | | | | | | failure (ARF) ([facility]); | | | | | | Obstructive [...] E coli bacteremia/hematuria/Acute kidney injury: A recent Daly catheter exchange was c omplicated by urethral laceration with hematuria. He presented with renal failure as well, and Dr. Salgado of urology was consulted, and felt that malpositioned urethral catheter was r esponsible. With fluids and replacement of the catheter, his creatinine decreased from 2.2 to his baseline 0.45. His hematuria cleared after replacement of the daly catheter and he was given Vitamin K. He was on IV Zosyn, which was switched to ceftriaxone after sensitivit ies returned to the 05/31 e coli growing in the blood. This [...] Priest MD. In 1 week. Contact information: [address] [place] [address] Discharge Medication List as of 07/09/2013 13:54 [...] or Severe Contraindications. Consult references such as [employer] for f urther information. Studies With Pending Results: None Greater than 30 minutes were spent on discharge and coordination of post-hospital care. Electronically signed by: Winston Ascencio MD, 07/09/2013 23:29 [facility] documented in this encounter Discharge Instructions Instructions Winston Ascencio MD - 07/09/2013Take 10 more days of cefdinir (Omnicef) for your infection. Discuss with Dr. Priest the best methods to keep the Daly catheter removed. documented in this encounter Medications [...] 0 | 03/22/19 | | | (MYCOSTATIN) 850883 | | | | 14 | | [...] | | (COUMADIN) 7.5 mg | Daily. /2 tablet | | | | 5 | [...] 07/09/13 0618 07/08/13 0449 07/07/13 0413 07/07/13 0412 CREA 0.45* 0.57* 0.60 -- HGB 9.2* [...] PDT . HOSPITALIST PROGRESS NOTE on 07/08/2013 [facility] Pt. Name/Age/: Martinez Abbasi 42 y.o. 1970 Med. Record Number: [id number] Primary Care Physician: Edwar Wilhelm Date of [...] with Dr. Salgado. Much better. Transfer to [facility] 07/08. Seems to be E. Coli. Sensitivities [...] 26.0* 27.7* PLT 163 146 154 Lab 07/08/1344807/07/133 07/06/13 1527 07/06/13 0438 07/05/13 2058 NA 141 [...] -- No results found for this basename: PHART:3,PO2ART:3,XYA2JWH:3,A2JDEYLF:3,BEART:[address] 168 hours No results found for this basename: CKTOTAL:3,TROPONINI:3,TROPONINT:3,CKMBINDEX:3,BNP:3 in the last 168 hours Lab 07/08/13 0449 07/07/13 0412 07/06/13 1525 APTT -- -- -- INR 1.11* 1.76* 1.78* PTT -- -- -- DDIMER -- -- -- No results found for this basename: POCGLU Micro results last 72hrs: Microbiology Results (72 hrs) Procedure Component Value Units Date/Time Culture, MRSA [[id number]] Collected:07/06/13 0146 Order Status:Completed Lab Status:Final result Updated:07/07/13 1036 Specimen Information:Respiratory / Nares Culture Negative for MRSA by chromogenic agar method Culture, Urine [[id number]] Collected:07/05/13 2113 Order Status:Completed Lab Status:Final result Updated:07/07/13 1203 Specimen Information:Urine Culture Result: <10,000 CFU/ml Mixed reinier (multiple morphologies present) Comment: Suggests contamination with urogenital or skin reinier. Culture, Blood [[id number]] Collected:07/05/132057 Order Status:Completed Lab Status:Final result Updated:07/07/13 1010 Specimen Information:Blood / Peripheral Blood Culture Gram Negative Rods Narrative: 4 of 4 bottles positive for gram negative bacilli. Please see [id number] for ID and sensitivity. Culture, Blood [[id number]] Collected:07/05/132057 Order Status:Completed Lab Status:Final result Updated:07/08/13 0924 Specimen Information:Blood / Peripheral Blood Culture Escherichia [...] 0601 acetaminophen, albuterol, ondansetron DVT Prophylaxis Coumadin [facility] Documentation I expect this patient will be hospitalized for greater than 2-midnights and expect the post -hospital plan to be discharge to home or to an adult foster home. Electronically signed by: Chase Russ MD, 07/08/2013 9:55 [facility] Portions of this chart may have been created withAnaphore voice recognition software. Occas ional wrong-word or [...] P&T-approved Electronically signed by: Noelle Miranda, PHARMEl 07/08/2013 8:59 Tamika Salomon RN - 07/07/2013 8:00 PM PDTAssessment completed, pt awake, alert, cooperative. Takes meds easily, repositioned with assist, pt tolerates well. Daly to straight drain, clear y ellow urine [...] DVT prevention. Starting lower than patient's ho mo regimen because he was supratherapeutic when admitted to the hospital. 2. Medication profile reviewed for potential drug-drug interactions 3. Labs in am: Hgb, Hct, INR 4. Pharmacist to follow daily Per P&T-approved Electronically signed by: Noelle Miranda, PHARMD 07/07/2013 8:37 Chase Wu MD - 07/07/2013 8:10 AM PDT . HOSPITALIST PROGRESS NOTE on 07/07/2013 [facility] Pt. Name/Age/: Martinez Ababsi 42 y.o. 1970 Med. Record Number: [id number] Primary Care Physician: Edwar Wilhelm Date of [...] Zosyn until ID and sensitivities back 3. Daly: will need to pull and do intermittent [...] signed: 07/06/2013 12:51 PM Selected Labs/Studies: Lab 07/07/1341207/06/13152607/06/13438 WBC 11.1* 14.6* 18.7* HGB 8.3* 8.9* 9.5* HCT 26.0* 27.7* 29.5* PLT 146 154 165 Lab 07/07/1341207/06/13152607/06/1343707/05/13 2058 NA 140 141 139 -- K [...] -- No results found for this basename: PHART:3,PO2ART:3,WAE2RBG:3,K9OAZJDX:3,BEART:[address] 168 hours No results found for this basename: CKTOTAL:3,TROPONINI:3,TROPONINT:3,CKMBINDEX:3,BNP:3 in the last 168 hours Lab 07/07/1341107/06/13152407/06/13438 APTT -- -- -- INR 1.76* 1.78* 2.30* PTT -- -- -- DDIMER -- -- -- No results found for this basename: POCGLU Micro results last 72hrs: Microbiology Results (72 hrs) Procedure Component Value Units Date/Time Culture, MRSA [[id number]] Collected:07/06/13 014 Order Status:Sent Lab Status:In process Updated:07/06/13145 Specimen Information:Respiratory / Nares Culture, Urine [[id number]] Collected:07/05/132112 Order Status:Completed Lab Status:Preliminary result Updated:07/06/13 0845 Specimen Information:Urine Culture No growth to date Culture, Blood [[id number]] Collected:07/05/132057 Order Status:Completed Lab Status:Preliminary result Updated:07/06/132126 Specimen Information:Blood / Peripheral Blood Gram Stain Result Gram negative rods Comment: 3 (aer) of 4 bottles positive to date Gram Stain Result Gram negative rods Comment: 4 of 4 bottles positive 07-06-13 2100 Culture, Blood [[id number]] Collected:07/05/132057 Order Status:Completed Lab Status:Preliminary result Updated:07/06/13 [...] home. Electronically signed by: Chase Russ MD, 07/07/2013 8:10 [facility] Portions of this chart may have been created withAnaphore voice recognition software. Occas ional wrong-word or sound-alike substitutions may have occurred due to the inherent li mitations of voice recognition software. Please read the chart carefully and recognize, usin g context, where these substitutions have occurred. Noelle Owens, PharmD - 07/06/2013 10:55 AM PDTRenal Dosing of Zosyn Zosyn 3.375g q6h is appropriate for this patients CrCl ~48. Will continue to monitor renal function and adjust dose if needed. Thank you Chase Gamboa MD - 07/06/2013 8:17 AM PDT HOSPITALIST PROGRESS NOTE on 07/06/2013 [facility] Pt. Name/Age/: Martinez Abbasi 42 y.o. 1970 Med. Record Number: [id number] Primary Care Physician: Edwar Wilhelm Date of [...] F) Intake/Output Summary (Last 24 hours) at 07/06/13 0817 Last data filed at 07/06/13 0800 Gross [...] no mass, no rebou nd, no guarding EXHIBIT TECHNICIAN: Alert, oriented x 3. Diagnostic Studies: Radiology: [...] -- No results found for this basename: PHART:3,PO2ART:3,RFW0YHJ:3,C8YMJWSV:3,BEART:[address] 168 hours No results found for this basename: CKTOTAL:3,TROPONINI:3,TROPONINT:3,CKMBINDEX:3,BNP:3 in the last 168 hours Lab 07/06/1343807/05/132057 APTT -- -- INR 2.30* 3.28* PTT -- -- DDIMER -- -- No results found for this basename: POCGLU Micro results last 72hrs: Microbiology Results (72 hrs) Procedure Component Value Units Date/Time Culture, MRSA [[id number]] Collected:07/06/13145 Order Status:Sent Lab Status:In process Updated:07/06/13145 Specimen Information:Respiratory / Nares Culture, Urine [[id number]] Collected:07/05/132112 Order Status:Sent Lab Status:In process Updated:07/05/132143 Specimen Information:Urine Culture, Blood [[id number]] Collected:07/05/132057 Order Status:Sent Lab Status:In process Updated:07/05/132116 Specimen Information:Blood / Peripheral Blood Culture, Blood [[id number]] Collected:07/05/132057 Order Status:Sent Lab Status:In process Updated:07/05/132116 [...] albuterol, ondansetron DVT Prophylaxis Coumadin at home. CMS Documentation I expect this patient will be hospitalized for greater than 2-midnights and expect the post -hospital plan to be discharge to home or to an adult foster home. Electronically signed by: Chase Russ MD, 07/06/2013 8:17 [facility] Portions of this chart may have been created withAnaphore voice recognition software. Occas ional wrong-word or sound-alike substitutions may have occurred due to the inherent li mitations of voice recognition software. Please read the chart carefully and recognize, carmina webb, where these substitutions have occurred. documented in this encounter Plan of Treatment +--------+---------+ + + + | Date | Type | Specialty | Care Team | Description | +--------+---------+ + + + | 07/18/ | Office | Physical Medicine | Chris Priest, | | | 2019 | Visit | and Rehabilitation | MD Margaux Alexandre | | | | | | [place] | | | | | | [id number] | | | | | | | [...] | 1.05 | 0.90 - 1.10 | [facility] | [...] + | [facility] | [address] | [place], [place] | [phone] | | [facility] | | [address] | | | - LABORATORY | | | | + + + + + | [facility] | [address] | [place], [place] | | | [facility] | | [address] | | | - LABORATORY | [...] | | | FILTRATION | mL/min/1.73m2 | [facility] | | | [facility] | RATE,ESTIMATED | | MEDICAL | | | | mL/min/1.47g6Wokl than | | CENTER - | | [...] + | [facility] | [address] | [place] | [phone] | | [facility] | | [address] | | | - LABORATORY | | | | + + + + + | [facility] | [address] | [place] | | | [facility] | | [address] | | | - LABORATORY | | | | + + + + + CBC with Differential (07/09/2013 6:18 AM PDT) + + + + + + | Component | Value | Ref Range | Performed | Pathologist | | | | | At | Signature | + + + + + + | WBC | 8.2 | 4.0 - 11.0 K/uL | [facility] | | | | | | [facility] | | | | | | MEDICAL | | | | | | CENTER - | | | | | | LABORATORY | | + + + + + + | RBC | 3.18 (L) | 4.30 - 5.70 [...] + | [facility] | [address] | [place], [place] | [phone] | | [facility] | | [address] | | | - LABORATORY | | | | + + + + + | [facility] | [address] | [place] | | | [facility] | | [address] | | | - LABORATORY | [...] 1.11 (H) | 0.90 - 1.10 | [facility] [...] + | [facility] | [address] | [place] | [phone] | | [facility] | | [address] | | | - LABORATORY | | | | + + + + + | [facility] | [address] | [place], [place] | | | [facility] | | [address], [facility] | | | - LABORATORY | | [...] | | | FILTRATION | mL/min/1.73m2 | [facility] | | | TRI[facility] | RATE,ESTIMATED | | MEDICAL | | | | mL/min/1.97f6Adyj than | | CENTER - | | [...] + | [facility] | [address] | [place] | [phone] | | [facility] | | [address] | | | - LABORATORY | | | | + + + + + | [facility] | [address] | [place], [place] | | | [facility] | | [address] | | | - LABORATORY | | | | + + + + + CBC with Differential (07/08/2013 4:49 AM PDT) + + + + + + | Component | Value | Ref Range | Performed | Pathologist | | | | | At | Signature | + + + + + + | WBC | 7.5 | 4.0 - 11.0 K/uL | [facility] | | | | | [facility] | | | | | | MEDICAL | | | | | | CENTER - | | | | | | LABORATORY | | + + + + + + | RBC | 3.09 (L) | 4.30 - 5.70 [...] + | [facility] | [address] | [place] | [phone] | | [facility] | | [address] | | | - LABORATORY | | | | + + + + + | [facility] | [address] | [place] | | | [facility] | | [address] | | | - LABORATORY | [...] | | | FILTRATION | mL/min/1.73m2 | [facility] | | | TRIST[facility] | RATE,ESTIMATED | | MEDICAL | | | | mL/min/1.61x8Ukzx than | | CENTER - | | [...] | ine Ratio | | | [facility] | | | | | | MEDICAL | | | | | | CENTER - | | | | | | LABORATORY | | + + + + + + + + | Specimen | + + | Blood | + + + + + + + | Performing | Address | City/State/[facility] | Phone Number | | Organization | | | | + + + + + | [facility] | [address] | [place] | [phone] | | [facility] | | [address] | | | - LABORATORY | | | | + + + + + | [facility] | [address] | [place] | | | [facility] | | [address], [facility] | | | - LABORATORY | | | | + + + + + CBC with Differential (07/07/2013 4:13 AM PDT) + + + + + + | Component | Value | Ref Range | Performed | Pathologist | | | | | At | Signature | + + + + + + | WBC | 11.1 (H) | 4.0 - 11.0 K/uL | [facility] | | | | | | [facility] | | | | | | MEDICAL | | | | | | CENTER - | | | | | | LABORATORY | | + + + + + + | RBC | 2.95 (L) | 4.30 - 5.70 | [facility] | | | | | M/uL | [facility] | | | | | | MEDICAL [...] + | [facility] | [address] | [place], [place] | [phone] | | [facility] | | [address] | | | - LABORATORY | | | | + + + + + | [facility] | [address] | [place], [place] | | | [facility] | | [address], [facility] | | | - LABORATORY | | [...] 1.76 (H) | 0.90 - 1.10 | [facility] [address] | [place] | [phone] | | [facility] | | [address] | | | - LABORATORY | | | | + + + + + | [facility] | [address] | [place] | | | [facility] | | [address], [facility] | | | - LABORATORY | | [...] + + + | UNIT # | [id number] | | [facility] | | | | [...] St | [place] | | | [facility] | | [address] | | | - BLOOD BANK | [...] + + + | UNIT # | [id number] | | [facility] | | | | [...] | Unit Status | Transfused | | [facility] | | | | [...] St | [place] | | | [facility] | | [address] | | | - BLOOD BANK | [...] + + + | UNIT # | [id number] | | [facility] | | | | [...] St | [place] | | | [facility] | | [address] | | | - BLOOD BANK | [...] | | Code | Thawed | | [facility] | | | | | | MEDICAL | | | | | | CENTER - | | | | | | BLOOD BANK | | + + + + + + | UNIT # | [id number] | | [facility] | | | | [...] St | [place] | | | [facility] | | [address] | | | - BLOOD BANK | | | | + + + + + CBC with Differential (07/06/2013 3:27 PM PDT) + + + + + + | Component | Value | Ref Range | Performed | Pathologist | | | | | At | Signature | + + + + + + | WBC | 14.6 (H) | 4.0 - 11.0 K/uL | [facility] | | | | | [facility] | | | | | | MEDICAL | | | | | | CENTER - | | | | | | LABORATORY | | + + + + + + | RBC | 3.17 (L) | 4.30 - 5.70 | [facility] | | | | | M/uL | [facility] | [...] [facility] | | | Basophils | | K/Laney [...] [address] | [place] | [phone] | | [facility] | | [address] | | | - LABORATORY | | | | + + + + + | [facility] | [address] | [place] | | | [facility] | | [address], [facility] | | | - LABORATORY | | [...] [facility] | | | | | | [facility] | | | | | | MEDICAL | | | | | | CENTER - | | | | | | LABORATORY | | + + + + + + | Creatinine | 0.80 | 0.60 - 1.30 | [facility] | | | | | mg/dL | [facility] | | | | | | MEDICAL | | | | | | CENTER - | | | | | | LABORATORY | | + + + + + + | eGFR if not | >60Comment: GLOMERULAR | >=60 | [facility] | | | | FILTRATION | mL/min/1.73m2 | [facility] | | | TRIST[facility]IAN | RATE,ESTIMATED | | MEDICAL | | | | mL/min/1.62n3Xyww than | | CENTER - | | [...] + | [facility] | [address] | [place] | [phone] | | [facility] | | [address] | | | - LABORATORY | | | | + + + + + | [facility] | [address] | [place] | | | [facility] | | [id number] [place] [address] | | | - LABORATORY | | [...] + | [facility] | [address] | [place], [place] | [phone] | | [facility] | | [address] | | | - LABORATORY | | | | + + + + + | [facility] | [address] | [place], [place] | | | [facility] | | [address], [facility] | | | - LABORATORY | | | | + + + + + Osmolality, Urine (07/06/2013 6:55 AM PDT) + +-------+ + + + | Component | Value | Ref Range | Performed | Pathologist | | | | | At | Signature | + +-------+ + + + | OSMO URINE | 236 | mOsm/kg | [facility] | | | | | | [facility] [address] | [place] | [phone] | | [facility] | | [address] | | | - LABORATORY | | | | + + + + + | [facility] | [address] | [place] | | | [facility] | | [address], [facility] | | | - LABORATORY | | [...] [address] | [place] | [phone] | | [facility] | | [address] | | | - LABORATORY | | | | + + + + + | [facility] | [address] | [place] | | | [facility] | | [address], [facility] | | | - LABORATORY | | [...] | | | Urine | | | [facility] | | | Random | | | [...] + | [facility] | [address] | [place], [place] | [phone] | | [facility] | | [address] | | | - LABORATORY | | | | + + + + + | [facility] | [address] | [place] | | | [facility] | | [address] | | | - LABORATORY | [...] + + + + | Clarity | Clear | Clear | [facility] | [...] - 1.030 | [facility] | | | [place], | | | [facility] | | | Urine | | | MEDICAL | | | | | | CENTER - | | | | | | LABORATORY | | + + + + + + | Protein, | Negative | Negative, | [facility] | | | Urine | | Trace, 30 mg/dL | [facility] | | | [...] + | [facility] | [address] | [place] | [phone] | | [facility] | | [address] | | | - LABORATORY | | | | + + + + + | [facility] | [address] | [place], [place] | | | [facility] | | [address] | | | - LABORATORY | [...] | | Time | | seconds | [facility] | | | | | | MEDICAL | | | | | | CENTER - | | | | | | LABORATORY | | + + + + + + | INR | 2.30 (H) | 0.90 - 1.10 | [facility] | | | | | | [facility] [...] [address] | [place] | [phone] | | [facility] | | [address] | | | - LABORATORY | | | | + + + + + | [facility] | [address] | [place] | | | [facility] | | [address], [facility] | | | - LABORATORY | | | | + + + + + CBC with Differential (07/06/2013 4:39 AM PDT) + + + + + + | Component | Value | Ref Range | Performed | Pathologist | | | | | At | Signature | + + + + + + | WBC | 18.7 (H) | 4.0 - 11.0 K/uL | [facility] | | | | | | [facility] | | | | | | MEDICAL | | | | | | CENTER - | | | | | | LABORATORY | | + + + + + + | RBC | 3.36 (L) | 4.30 - 5.70 | [facility] | | | | | M/uL | [facility] | [...] + | [facility] | [address] | [place] | [phone] | | [facility] | | [address] | | | - LABORATORY | | | | + + + + + | [facility] | [address] | [place], [place] | | | [facility] | | [address] | | | - LABORATORY | | | | + + + + + Magnesium (07/06/2013 4:38 AM PDT) + +-------+ + + + | Component | Value | Ref Range | Performed | Pathologist | | | | | At | Signature | + +-------+ + + + | Magnesium | 2.0 | 1.8 - 2.5 mg/dL | [facility] | | | | | | [facility] [...] [address] | [place] | [phone] | | [facility] | | [address] | | | - LABORATORY | | | | + + + + + | [facility] | [address] | [place] | | | [facility] | | [address], [facility] | | | - LABORATORY | | [...] | | | | mmol/L | [facility] | | | | [...] + + | eGFR if not | 33 (L)Comment: | >=60 | [facility] | | | | GLOMERULAR FILTRATION | mL/min/1.73m2 | [facility] | | | [facility] | RATE,ESTIMATED | | MEDICAL | | | | mL/min/1.18y2Brfu than | | CENTER - | | [...] (L) | 3.2 - 5.0 g/dL | [facility] | | | | | [...] | ine Ratio | | | [facility] | | | | | [...] + | [facility] | [address] | [place] | [phone] | | [facility] | | [address] | | | - LABORATORY | | | | + + + + + | [facility] | [address] | [place] | | | [facility] | | [address], [facility] | | | - LABORATORY | | [...] | | chromogenic agar method | | [facility] | | | | | [...] + | [facility] | [address] | [place], [place] | [phone] | | [facility] | | [address] | | | - LABORATORY | | | | + + + + + | [facility] | [address] | [place], [place] | | | [facility] | | [address] [place] [address] | | | - LABORATORY | | [...] | | [facility] | | | Sedimentati | | [...] + | [facility] | [address] | [place], [place] | [phone] | | [facility] | | [address] | | | - LABORATORY | | | | + + + + + | [facility] | [address] | [place], [place] | | | [facility] | | [address], [facility] [place] | | | - LABORATORY | | [...] | | | in | | | [facility] | | [...] [address] | [place] | [phone] | | [facility] | | [address] | | | - LABORATORY | | | | + + + + + | [facility] | [address] | [place], [place] | | | [facility] | | [address], [facility] [place] | | | - LABORATORY | | [...] + | [facility] | [address] | [place] | [phone] | | [facility] | | [address] | | | - LABORATORY | | | | + + + + + | [facility] | [address] | [place], [place] | | | [facility] | | [id number] [place] [address] | | | - LABORATORY | | [...] + | [facility] | [address] | [place], [place] | | | [facility] | | [address] | | | - BLOOD BANK | [...] Note | + + | Td Meneses Results In - 07/06/2013 12:54 PM PDT [...] + | MISCELLANEOUS LAB | | | [phone] | + +---------+ + + | MISCELANIOUS LAB | | | [phone] | + +---------+ + + Culture, Urine [...] + | [facility] | [address] | [place], [place] | [phone] | | [facility] | | [address] | | | - LABORATORY | | | | + + + + + | [facility] | [address] | [place] | | | [facility] | | [address] [place] [address] | | | - LABORATORY | | [...] + + + + | Clarity | Turbid (A) | Clear | [facility] [...] - 1.030 | [facility] | | | [place], | | | [facility] | | [...] + | [facility] | [address] | [place] | [phone] | | [facility] | | [address] | | | - LABORATORY | | | | + + + + + | [facility] | [address] | [place], [place] | | | [facility] | | [id number] | | | - LABORATORY | [...] + | [facility] | [address] | [place], [place] | [phone] | | [facility] | | [address] | | | - LABORATORY | | | | + + + + + | [facility] | [address] | [place], [place] | | | [facility] | | [address] [place] [address] | | | - LABORATORY | | [...] + | [facility] | [address] | [place] | [phone] | | [facility] | | [address] | | | - LABORATORY | | | | + + + + + | [facility] | [address] | [place], [place] | | | [facility] | | [id number] | | | - LABORATORY | [...] bacilli. Please see | [facility] | | [id number] for ID and sensitivity. | [facility] | | [facility] | | | - LABORATORY | + + + + + + + + | Performing | Address | City/State/Zipcode | Phone Number | | Organization | | | | + + + + + | [facility] | [address] | [place] | [phone] | | [facility] | | [address] | | | - LABORATORY | | | | + + + + + | [facility] | [address] | [place] | | | [facility] | | [id number] [place] [address] | | | - LABORATORY | | [...] (H) | 0.60 - 1.30 | [facility] | | | | | mg/dL | [facility] | | | | | | MEDICAL | | | | | | CENTER - | | | | | | LABORATORY | | + + + + + + | eGFR if not | 32 (L)Comment: | >=60 | [facility] | | | | GLOMERULAR FILTRATION | mL/min/1.73m2 | [facility] | | | TRISTANIAN | RATE,ESTIMATED | | MEDICAL | | | | mL/min/1.70i6Usmq than | | CENTER - | | [...] + | [facility] | [address] | [place] | [phone] | | [facility] | | [address] | | | - LABORATORY | | | | + + + + + | [facility] | [address] | [place], [place] | | | [facility] | | [address] | | | - LABORATORY | [...] [address] | [place] | [phone] | | [facility] | | [address] | | | - LABORATORY | | | | + + + + + | [facility] | [address] | [place] | | | [facility] | | [address], [facility] | | | - LABORATORY | | | | + + + + + CBC w/ Auto Differential (07/05/2013 8:58 PM PDT) + + + + + + | Component | Value | Ref Range | Performed | Pathologist | | | | | At | Signature | + + + + + + | WBC | 8.0 | 4.0 - 11.0 K/uL | [facility] | | | | | | [facility] | | | | | | MEDICAL | | | | | | CENTER - | | | | | | LABORATORY | | + + + + + + | RBC | 4.44 | 4.30 - 5.70 | [...] + | [facility] | [address] | [place] | [phone] | | [facility] | | [address] | | | - LABORATORY | | | | + + + + + | [facility] | [address] | [place] | | | [facility] | | [address] | | | - LABORATORY | [...] + | Quadriplegia following spinal cord injury (HCC) | + + | Coumadin toxicity, initial [...] | 0.45% with KCl 20 mEq/L (D5 / | | 14 7:01 | | mL/hr [...] | 0.45% with KCl 20 mEq/L (D5 02/28 | | 14 4:14 | mLs | [...] | | | | | modification) on Mon07/09/13 at | | | | | | [...] | | | DAILY, First dose on Mon07/06/13 | | PM PDT | | | [...] | | | | | Minutes, ONCE, Mon07/05/13 at | | | | | | [...]
--- OUTSIDE RECORDS SUMMARY | ~2019-06-19 | XMS | Encounter Summary ---
Demographics + + + | Address | [address] | | | [place] [address] | + + + | Home Phone [...] | Author | [facility] | | | and Narenana | + + + | Organization | [facility] | | | and [place] [...] [place] | | | | | [address] | | + + + + + Care Team Providers + +------+ + | Care Scrap Burner Name | Role | Phone | + [...] | | | | OP [address] | [place], [place] | | | | | [place], [place] | [address] | | | | | [address] | | | | | | [phone] | | | +--------+ + + + [...] Visit | and Rehabilitation | [address] | | | | | | [place] | | | | | | [address] | | | | | | | [...]
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
--- OUTSIDE RECORDS SUMMARY | ~2019-06-19 | XMS | Encounter Summary ---
Demographics + + + | Address | [address] | | | [place] [address] | + + + | Home Phone | | + + + | Preferred Language | Unknown | + + + | Marital Status | Single | + + + | Spiritism Affiliation | 1074 | + + + | Race | Unknown | + + + | Ethnic Group | Unknown | + + + Author + + + | Author | [facility] | | | and Narenana | + + + | Organization | [facility] | | | and [place] [...] [place] | | | | | [address] | | + + + + + Care Team Providers + +------+ + | Care Edge Polisher Name | Role | Phone | + +------+ + | Edwar Wilhelm PA-C | PCP | | + +------+ + Encounter Details +--------+ + + + + | Date | Type | Department | Care Team | Description | +--------+ + + + + | 05/17/ | Documentati | [facility] | Ravi Della Velásquez, | | | 2017 | on | MED CTR THERAPY PT | PT [address] | | | | | OP [address] | [place], [place] | | | | | [place], [place] | [address] | | | | | [address] | | | | | | [phone] | | | +--------+ + + + [...] encounter Progress Notes Della Ren, PT - 05/17/2016 10:12 [facility] [address] [place] [address] Physical Therapy Discharge Note This discharge is associated with the evaluation completed on 02/23/15. Date: 05/17/2016 Patient Information Patient Name: Martinez Abbasi II Date of : 1970 Age: 45 y.o. No diagnosis found. Date of Onset: No data was found Referring Provider: Chris Priest Total Number of Visits Completed: 7 Total Cancellations/No Shows: 9 Patient has failed to return to therapy for further treatment. Goal status is unknown at th is time. This note serves as discharge from therapy. Patient was contacted/messages left but did not respond. Was working on equipment needs but last contact was on 12/22/15. At this time we find it necessary to discharge this patient f rom therapy services. The last progress note or the patients initial evaluation will serve as objective status fo r purposes of discharge. Electronically signed by: Della Ren PT, 05/17/2016 10:13 Patient Name: Martinez Abbasi II/: 1970/ documented [...] [place] | | | | | | [address] | | | | | | | | +--------+---------+ + + + documented as of this encounter Visit Diagnoses Not on filedocumented in this encounter"
--- OUTSIDE RECORDS SUMMARY | ~2019-06-19 | XMS | Encounter Summary ---
Demographics + + + | Address | [address] | | | [place] [address] | + + + | Home Phone [...] | Author | [facility] | | | and Narenana | + + + | Organization | [facility] | | | and [...] [place] | | | | | [address] | | + + + + + Care Team Providers + +------+ + | Care Tile Mechanic Helper Name | Role | Phone | + [...] | | | | at C[address] | [address] | | | | | | level (HCC) | [place], | | | | | | Spasm | [place] [address] | | | | | | Medication | Phone: | | | | | | overuse | [phone] | | | | | | headache | Fax: | | | | | | | [phone] | | +--------+ + + + + [...] | quadriplegia | [address] | [place] | | | | n | at C[address] | [place], | | | | | level (HCC) | [place], | [place] [address] | | | | | Impaired | [place] [address] | Phone: | | | | | mobility and | Phone: | [phone] | | | | | ADLs | [phone] | Fax: | | | | | Procedures | Fax: | [phone] | | | | | pt eval | [phone] | | +--------+ + + + + + Encounter Details +--------+---------+ + + + | Date | Type | Department | Care Team | Description | +--------+---------+ + + + | 01/13/ | Office | [facility] | Chris Aguirre, | Incomplete | | 2014 | Visit | PHYSIATRY [address] | [address] | quadriplegia at C6 | | | | [address] | [place], [place] | level (HCC) (Primary | | | | [place] | [address] | Dx); Spasm; | | | | [address] | | Neurogenic bowel; | | | | [phone] | | Neurogenic bladder; | | | [...] months. documented in this encounter Progress Notes Chirs Aguirre MD - 01/13/2015 6:31 PM PST [facility] PHYSIATRY [address] [facility] [id number] OFFICE NOTE CHRIS AGUIRRE JR, MD Patient: MARTINEZ ABBASI Admitting: MR #: [id number] LOC: PT TYPE: Adm Date: 01/13/2015 : [...] has not yet followed up with the dewaxer. Today we reviewed the [facility]'s upper endoscopy report. We discussed that by the report esophagus appeared nor mal, there may have been some erythematous gastric lining. We discussed that biopsies were taken, the biopsy results are not available for review. He is advised to follow up with mickey mccain dewaxer. We discussed that he may have some [...] Gabapentin 300 mg 3 times per day. [place] 10/325 one tablet 4 times per day, [...] difficulty accessing the shower because of his curre nt shower set up. PHYSICAL EXAMINATION: VITAL [...] He is advised to follow up with dewaxer. Abdominal ultrasound of right upper quadrant, 12/22/2014 [...] return to outpatient physical therapy here at [facility], they can do some standing frame education for him. They can also review his mov ements and strength to see if there is any ways that he would benefit from continued therap y strengthening upper extremities to improve mobility and transfers. Neurogenic bladder, he will continue current management with suprapubic catheter. He has been asked to follow up with the dewaxer regarding his complaint of epigastric p ain. [...] I am requesting a pain clinic consul rodríguez at [facility] to evaluate the patient and determine whether [...] he will steven ve a consult at [facility] to determine whether or not he may [...] 01/13/2015 18:31:56 Transcribed on 01/14/2015 08:49:10 by [facility] job# [id number] Confirmation #: [id number] cc: EDWAR GREENFIEDL PAC [facility] MD - 01/13/2015 5:08 PM PSTThis office note has been dictated. Job ID# [id number] signed by Chris Aguirre MD at 01/13/2015 6:32 PM PSTdocumented in this encounter Plan of Treatment +--------+---------+ + + + | Date | Type | Specialty | Care Team | Description | +--------+---------+ + + + | 07/18/ | Office | Physical Medicine | Chris Aguirre, | | | 2019 | Visit | and Rehabilitation | MD [address] | | | | | | [place] | | | | | | [address] | | | | | | | [...] | | Referral | | | level ([facility]) | | | | | | Impaired mobility | | | | | | and ADLs | | + + +--------+ + + | Ambulatory referral | Outpatient | Routin | Incomplete | Ordered: 01/13/2015 | | to Pain Clinic | Referral | e | quadriplegia at C6 | | | | | | level (HCC) [place] | | | | | | [...]
--- OUTSIDE RECORDS SUMMARY | ~2019-06-19 | XMS | Encounter Summary ---
Demographics + + + | Address | [address] | | | [place] [address] | + + + | Home Phone | | + + + | Preferred Language | Unknown | + + + | Marital Status | Single | + + + | Buddhism Affiliation | 1074 | + + + | Race | Unknown | + + + | Ethnic Group | Unknown | + + + Author + + + | Author | [facility] | | | and Narenana | + + + | Organization | [facility] | | | and [place] | [...] [place] | | | | | [address] | | + + + + + Care Team Providers + +------+ + | Care Linseed Oil Temperer Name | Role | Phone | + [...] + + | 06/04/ | Emergency | [facility] | Eliu Herrera | UTI (urinary tract | | 2013 | | MED CTR EMERGENCY | Harjit [place] MD | infection) due to | | | | CENTER [address] | [address] | urinary indwelling | | | | [place] | [place] catheter, | | | | [address] | [address] | initial encounter | | | | [phone] | | ([facility]) (Primary Dx); | | | | | | Cough; Paraplegia | | | | | | following spinal | | | | | | cord injury ([facility]) | +--------+ + + + + Social [...] Care Everywhere.UNDERSTANDING U RINARY TRACT INFECTIONS (UTIS) ([place])documented in this encounter Medications at Time of [...] 0 | 03/22/19 | | | (MYCOSTATIN) [id number] | | | | 14 | | [...] [place] | | | | | | [address] | | | | | | | [...] + | MISCELLANEOUS LAB | | | [phone] | + +---------+ + + | MISCELANIOUS LAB | | | [phone] | + +---------+ + + Culture, Urine (06/04/2013 2:05 PM PDT) + + + + + + | Component | Value | Ref Range | Performed | Pathologist | | | | | At | Signature | + + + + + + | Culture | >100,000 CFU/ml | | [facility] | | | | Escherichia coliComment: | | [facility] | | | | Identification and | [...] + | [facility] | [address] | [place] | [phone] | | [facility] | | [address] | | | - LABORATORY | | | | + + + + + | [facility] | [address] | [place], [place] | | | [facility] | | [address], [facility] | | | - LABORATORY | | [...] - 1.030 | [facility] | | | [place], | | | [facility] | | | Urine | | [...] | | Urine | | | [facility] | | | | | | MEDICAL | | | | | | CENTER - | | | | | | LABORATORY | | + + + + + + | Glucose, | Negative | Negative | [facility] | | | Urine | | | [facility] | | [...] + | [facility] | [address] | [place], [place] | [phone] | | [facility] | | [address] | | | - LABORATORY | | | | + + + + + | [facility] | [address] | [place], [place] | | | [facility] | | [address], [facility] | | | - LABORATORY | | [...]
--- OUTSIDE RECORDS SUMMARY | ~2019-06-19 | XMS | Encounter Summary ---
Demographics + + + | Address | [address] | | | [place] [address] | + + + | Home Phone [...] + | Author | [facility] | | | and Narenana | + + + | Organization | [facility] | | | and [...] [place] | | | | | [address] | | + + + + + Care Team Providers + +------+ + | Care Clinical Assoc Name | Role | Phone | + [...] | Emergency | [facility] | Eliu Herrera | Estellel intertrigo | | 2016 | | MED CTR EMERGENCY | Harjit [place] MD | (Primary Dx) | | | | CENTER [address] | [address] | | | | | [place] | | | | | [address] | [address] | | | | | [phone] | | | +--------+ + + + [...] + documented in this encounter Discharge Instructions Karie Hernandez RN - 03/26/2015Please follow-up with her primary care steve gongora. Apply creams to affected areas. He may follow-up with the wound care clinic if you would like. You can call the main [facility] number and be transferred to the wound [...] 0 | 03/22/19 | | | (MYCOSTATIN) [id number] | | | | 14 | | [...] [place] | | | | | | [address] | | | | | | | [...] | | | Diff | | | [facility] | | | | | | MEDICAL | | | | | | CENTER - | | | | | | LABORATORY | | + + + + + + | Clostridium | NegativeComment: | | [facility] | | | Difficile | Negative for toxigenic | | [facility] | | | GDH Antigen | Clostridium [...] [address] | [place] | [phone] | | [facility] | | [address] | | | - LABORATORY | | [...]
--- OUTSIDE RECORDS SUMMARY | ~2019-06-19 | XMS | Encounter Summary ---
Demographics + + + | Address | [address] | | | [place] [address] | + + + | Home Phone [...] Author | [facility] | | | and Narenana | + + + | Organization | [facility] | | | and [place] [...] [place] | | | | | [address] | | + + + + + Care Team Providers + +------+ + | Care Massotherapist Name | Role | Phone | + [...] | | | | , C5-C7 | [address] | [place], | | | | | complete | [place], | [place] [address] | | | | | (HCC) | [place] [address] | Phone: | | | | | Neurogenic | Phone: | [phone] | | | | | bladder | [phone] | Fax: | | | | | | Fax: | [phone] | | | | | | [phone] | | + + + + + [...] | | | Rehabilitatio | Quadriplegia | [address] | [address] | | | | n | ([facility]) | [address] | [place], | | | | | | [place], | [place] [address] | | | | | | [place] [address] | Phone: | | | | | | Phone: | [phone] | | | | | | [phone] | Fax: | | | | | | Fax: | [phone] | | | | | | [phone] | | +--------+--------+ + + + + Encounter Details +--------+---------+ + + + | Date | Type | Department | Care Team | Description | +--------+---------+ + + + | 07/17/ | Office | [facility] | Chris Priest, | Quadriplegia, C5-C7 | | 2013 | Visit | PHYSIATRY [address] | MD [address] | complete (HCC) | | | | [address] | [place] | (Primary Dx); | | | | [place] | [address] | Abdominal spasms; | | | | [address] | | Muscle spasm of both | | | | [phone] | | lower legs; | | | [...] office note has been dictated. Job ID# [id number] signed by Chris Priest MD at 07/17/2013 2:50 PM Lauren Guajardo RN - 07/17/2013 11:46 AM PDTPatient states he is hear for a consult regarding care of his spine. States pain to neck, 05/06. Electronically signed by Lauren Troy RN at 4 2:50 PM Chris Ware MD - 07/17/2013 12:00 AM PDT [facility] [address] [place] [address] [id number] FAX: [phone] OFFICE VISIT PRIMARY CARE PROVIDER: Bridger Wilhelm [...] as a result. He was taken to [facility] and then transported to [facility], where he had surgical reduction for a C5-6 spinal cord injury and dislocation of bones. Sub sequently, he participated in acute inpatient rehabilitation at [facility]. He was discharged from [facility] at the end of February 2013. [...] He does not have a hospital bed. H e requires Stephanie lift for transfers. He spends 12 hours a day in a wheelchair, 12 hours a d ay in his bed. He receives care from his significant other. Initially after discharge from rehabilitation, he had intermittent catheterizations. He did develop a urinary tract infect ion and urinary sepsis. He was hospitalized at [facility] in the ICU for autonomic dysreflexia [...] Stephanie lift for transfers. He uses fabiola [employer] wheelchair, which he is able to control. [...] trength bilaterally. Trace thumb movement and hand stock trader strength bilaterally. Hand closure is with tenodesis. [...] reli ef while in bed, rolling from igdj-dw-zumz, or to new position. In regard to [...] etc. Greater than an hour was spent imic-su-cbgw today with Mr. Abbasi, over half of which was spent formulating and discussing his medical treatment plan. Thank you for allowing me to be involved in the care of your the patient. If you have any questions regarding the care of Mr. Abbasi, please do not hesitate to call. Chris Priest Jr, MD [place] / [place] JOB #: [id number] cc: JANIE Byrnes-C P DTdocumented in this encounter Plan of Treatment +--------+---------+ + + + | Date | Type | Specialty | Care Team | Description | +--------+---------+ + + + | 07/18/ | Office | Physical Medicine | Chris Priest, | | | 2019 | Visit | and Rehabilitation | MD Margaux Forrester | | | | | | [place] | | | | | | [address] | | | | | | | | +--------+---------+ + + + + + +--------+ + + | Name | Type | Priori | Associated Diagnoses | Order Schedule | | | | ty | | | + + +--------+ + + | * [facility] | Outpatient | Routin | Quadriplegia, [...]
--- OUTSIDE RECORDS SUMMARY | ~2019-06-19 | XMS | Encounter Summary ---
Demographics + + + | Address | [address] | | | [place] [address] | + + + | Home Phone [...] + + + | Author | [facility] | | | and [place] | + + + | Organization | [facility] | | | and [place] [...] [place] | | | | | [address] | | + + + + + Care Team Providers + +------+ + | Care Tool Grinder Set Up Operator Gear Name | Role | Phone | + [...] | | | | at C5-[address] | [address] | | | | | | level (HCC) | [place], | | | | | | Spasm | [place] [address] | | | | | | Medication | Phone: | | | | | | overuse | [phone] | | | | | | headache | Fax: | | | | | | | [phone] | | +--------+ + + + + [...] Rehabilitatio | quadriplegia | [address] | | | | n | at C5-[address] | [place], | | | | | level (HCC) | [place], | [place] [address] | | | | | Impaired | [place] [address] | Phone: | | | | | mobility and | Phone: | [phone] | | | | | ADLs | [phone] | Fax: | | | | | Procedures | Fax: | [phone] | | | | | pt eval | [phone] | | +--------+ + + + + + Encounter Details +--------+---------+ + + + | Date | Type | Department | Care Team | Description | +--------+---------+ + + + | 01/13/ | Office | [facility] | Chris Aguirre, | Incomplete | | 2014 | Visit | PHYSIATRY [address] | [address] | quadriplegia at C6 | | | | [address] | [place], [place] | level (HCC) (Primary | | | | [place], [place] | [address] | Dx); Spasm; | | | | [address] | | Neurogenic bowel; | | | | [phone] | | Neurogenic bladder; | | | [...] MD - 01/13/2015 6:31 PM PST [facility] PHYSIAT[facility] [address] [facility] [id number] OFFICE NOTE CHRIS AUGIRRE JR, MD Patient: MARTINEZ ABBASI Admitting: MR #: [id number] LOC: PT TYPE: Adm Date: 01/13/2015 : [...] has not yet followed up with the rope walker. Today we reviewed the [facility] upper endoscopy report. We discussed that by the report esophagus appeared nor mal, there may have been some erythematous gastric lining. We discussed that biopsies were taken, the biopsy results are not available for review. He is advised to follow up with mickey mccain rope walker. We discussed that he may have some [...] Gabapentin 300 mg 3 times per day. [place] 10/325 one tablet 4 times per day, [...] He is advised to follow up with rope walker. Abdominal ultrasound of right upper quadrant, 12/22/2014 [...] return to outpatient physical therapy here at [facility], they can do some standing frame education for him. They can also review his mov ements and strength to see if there is any ways that he would benefit from continued therap y strengthening upper extremities to improve mobility and transfers. Neurogenic bladder, he will continue current management with suprapubic catheter. He has been asked to follow up with the rope walker regarding his complaint of epigastric p ain. [...] requesting a pain clinic consul rodríguez at [facility] to evaluate the patient and determine whether [...] he will steven ve a consult at [facility] to determine whether or not he may [...] 01/13/2015 18:31:56 Transcribed on 01/14/2015 08:49:[address] [facility] job# [id number] Confirmation #: [id number] cc: EDWAR [place] PAC [facility]Chris MD - 01/13/2015 5:08 PM PSTThis office note has been dictated. Job ID# [id number] signed by Chris Aguirre MD at 01/13/2015 [...] [place] | | | | | | [address] | | | | | | | [...] Referral | | | level ([facility]) | | | | | | [...]
--- OUTSIDE RECORDS SUMMARY | ~2019-06-19 | XMS | Encounter Summary ---
Demographics + + + | Address | [address] | | | [place] [address] | + + + | Home Phone | | + + + | Preferred Language | Unknown | + + + | Marital Status | Single | + + + | Jew Affiliation | 1074 | + + + | Race | Unknown | + + + | Ethnic Group | Unknown | + + + Author + + + | Author | [facility] | | | and [place]renana | + + + | Organization | [facility] | | | and [place] [...] [place] | | | | | [address] | | + + + + + Care Team Providers + +------+ + | Care Assault Amphibious Vehicle Officer Name | Role | Phone | + [...] + | 04/08/ | Emergency | [facility] | Reagan Clifford MD | Urinary catheter | | 2016 | | MED CTR EMERGENCY | [address] | ([place]) change | | | | CENTER [address] | [place] | required (Primary | | | | [place] | [address] | Dx) | | | | [address] | | | | | | [phone] | | | +--------+ + + + [...] 0 | 03/22/19 | | | (MYCOSTATIN) [id number] | | | | 14 | | [...] [place] | | | | | | [address] | | | | | | | | +--------+---------+ + + + documented as of this encounter Visit Diagnoses + + | Diagnosis | + + | Urinary catheter ([place]) change required - Primary Fitting and adjustment of urinary | | device | + + documented in this encounter
--- OUTSIDE RECORDS SUMMARY | ~2019-06-19 | XMS | Encounter Summary ---
Demographics + + + | Address | [address] | | | [place] [address] | + + + | Home Phone [...] Author | [facility] | | | and [place]renana | + + + | Organization | [facility] | | | and [place] [...] [place] | | | | | [address] | | + + + + + Care Team Providers + +------+ + | Care Crawler Tractor Operator Name | Role | Phone | [...] | Specialty | Gastroenterol | Diagnoses | Jarocho, | Jarocho, | | | Services | ogy | Abdominal | MD Jonathan | MD Jonathan | | | Required | | pain, right | [address] | [address] | | | | | upper | BLVD | [place], | | | | | quadrant | [place] | [place] [address] | | | | | Dysphagia | [address] | Phone: | | | | | Gastroesopha | Phone: | [phone] | | | | | geal reflux | [phone] | Fax: | | | | | disease | Fax: | [phone] | | | | | without | [phone] | | | | | | esophagitis [...] | | | | | | | SD | | | | | | | ESOPHAGOGAST | | | | | | | RODUODENOSCO | | | | | | | PY TRANSORAL | | | | | | | DIAGNOSTIC | | | | | | | SD EDG | | | | | | | TRANSORAL | | | | | | | BIOPSY | | | | | | | SINGLE/MULTI | | | | | | | PLE SD | | | | | | | [...] | [address] | [place], [place] | (Primary Dx); | | | | [address] [place] | [address] | Dysphagia; | | | | [address] | [phone] | Gastroesophageal | | | | [phone] | | reflux disease | | | [...] 1145. Must be NPO x8 hours. (Devora cee has appt. at 3pm that same day [...] [place] | | | | | | [address] [...] right upper quadrant | (Approximate), | | ([place]AR[place]) | | | Dysphagia | Expires: 12/09/2015 [...] RUQ pain, rule out hepatomegaly COMPARISON:None | [facility] | | FINDINGS: Liver:The liver is of [...] | + + + + + | [facility] | [address] | [place] | [phone] | | [facility] | | [address] | | | - IMAGING | | [...]
--- OUTSIDE RECORDS SUMMARY | ~2019-06-19 | XMS | Encounter Summary ---
Demographics + + + | Address | [address] | | | [place] [address] | + + + | Home Phone [...] | Author | [facility] | | | and Narenana | + + + | Organization | [facility] | | [...] [place] | | | | | [address] | | + + + + + Care Team Providers + +------+ + | Care Wall Covering Contractor Name | Role | Phone | + +------+ + | Edwar Wilhelm PA-C | PCP | | + +------+ + Encounter Details +--------+ + + + + | Date | Type | Department | Care Team | Description | +--------+ + + + + | 03/03/ | Documentati | [facility] | Ravi Della Velásquez, | | | 2016 | on | MED CTR THERAPY PT | PT [address] | | | | | OP [address] | [place], [place] | | | | | [place], [place] | [address] | | | | | [address] | | | | | | [phone] | | | +--------+ + + + [...] encounter Progress Notes Della Ren, PT - 03/03/2015 10:44 [facility] OP [address] [place] [address] Cancellation/No Show Date: 03/03/2015 Patient Information Patient Name: Martinez Abbasi II Date of : 1970 Age: 44 y.o. Reason for missed visit: pt called to cancel appt. Due to illness Phone call placed: no Plan: Cont with POC, will call to re-schedule Electronically signed by: Della Ren PT, 03/03/2015 10:44 Patient Name: Martinez Abbasi II/: 1970/ documented in this [facility] nter Plan of Treatment +--------+---------+ + [...] [place] | | | | | | [address] | | | | | | | | +--------+---------+ + + + documented as of this encounter Visit Diagnoses Not on filedocumented in this encounter"
--- OUTSIDE RECORDS SUMMARY | ~2019-06-19 | XMS | Encounter Summary ---
Demographics + + + | Address | [address] | | | [place] [address] | + + + | Home Phone [...] Author | [facility] | | | and [place]renana | + + + | Organization | [facility] | | | and [...] [place] | | | | | [address] | | + + + + + Care Team Providers + +------+ + | Care Children'S Service Worker Name | Role | Phone | [...] | | | | , C5-C7 | [address] | [place], | | | | | complete | [place], | [place] [address] | | | | | (HCC) | [place] [address] | Phone: | | | | | Neurogenic | Phone: | [phone] | | | | | bladder | [phone] | Fax: | | | | | | Fax: | [phone] | | | | | | [phone] | | + + + + + [...] Quadriplegia | [address] | [address] | | | | n | ([facility]) | [address] | [place], | | | | | | [place], | [place] [address] | | | | | | [place] [address] | Phone: | | | | | | Phone: | [phone] | | | | | | [phone] | Fax: | | | | | | Fax: | [phone] | | | | | | [phone] | | +--------+--------+ + + + + Encounter Details +--------+---------+ + + + | Date | Type | Department | Care Team | Description | +--------+---------+ + + + | 07/17/ | Office | [facility] | Chris Priest, | Quadriplegia, C5-C7 | | 2013 | Visit | PHYSIATRY [address] | MD [address] | complete (HCC) | | | | [address] | [place] | (Primary Dx); | | | | [place] | [address] | Abdominal spasms; | | | | [address] | | Muscle spasm of both | | | | [phone] | | lower legs; | | | [...] office note has been dictated. Job ID# [id number] signed by Chris Priest MD at 07/17/2013 2:50 PM Lauren Guajardo RN - 07/17/2013 11:46 AM PDTPatient states he is hear for a consult regarding care of his spine. States pain to neck, 05/06. Electronically signed by Lauren Troy RN at 4 2:50 PM Chris Ware MD - 07/17/2013 12:00 AM PDT [facility] [address] [place] [address] FAX: [phone] OFFICE VISIT PRIMARY CARE PROVIDER: Bridger Wilhelm [...] as a result. He was taken to [facility] and then transported to [facility], where he had surgical reduction for a C5-6 spinal cord injury and dislocation of bones. Sub sequently, he participated in acute inpatient rehabilitation at [facility]. He was discharged from [facility] at the end of February [...] and urinary sepsis. He was hospitalized at [facility] in the ICU for autonomic dysreflexia and [...] Stephanie lift for transfers. He uses fabiola [employer]ic wheelchair, which he is able to control. [...] trength bilaterally. Trace thumb movement and hand fish hatchery inspector strength bilaterally. Hand closure is with tenodesis. [...] reli ef while in bed, rolling from rjnx-lr-wdkw, or to new position. In regard to [...] etc. Greater than an hour was spent pyap-zo-opba today with Mr. Abbasi, over half of which was spent formulating and discussing his medical treatment plan. Thank you for allowing me to be involved in the care of your the patient. If you have any questions regarding the care of Mr. Abbasi, please do not hesitate to call. Chris Priest Jr, MD [place] / [place] JOB #: [id number] cc: JANIE Byrnes-C P DTdocumented in this [...] [place] | | | | | | [address] | | | | | | | [...]
--- OUTSIDE RECORDS SUMMARY | ~2019-06-19 | XMS | Encounter Summary ---
Demographics + + + | Address | [address] | | | [place] [address] | + + + | Home Phone [...] + + + | Author | [facility] | | | and [place]renana | + + + | Organization | [facility] | | | and [place] [...] [place] | | | | | [address] | | + + + + + Care Team Providers + +------+ + | Care Risk Lead Name | Role | Phone | [...] | | | | | Procedures | [address] | [address] | | | | | 10/21 PEND | [place], | [address] [place] | | | | | [place] | [place] [address] | [place], [place] | | | | | | Phone: | [phone] | | | | | | [phone] | Phone: | | | | | | Fax: | [phone] | | | | | | [phone] | Fax: | | | | | | | [phone] | +--------+ + + + + + Reason for Visit + + + | Reason | Comments | + + + | Follow-up | | + + + Encounter Details +--------+---------+ + + + | Date | Type | Department | Care Team | Description | +--------+---------+ + + + | 10/20/ | Office | [facility] | Chris Aguirre, | Incomplete | | 2014 | Visit | PHYSIATRY [address] | MD [address] | quadriplegia at C6 | | | | [address] | [place] | level ([facility]) (Primary | | | | [place], [place] | [address] | Dx); Epigastric | | | | [address] | | pain; Abdominal | | | | [phone] | | spasms; Spasm; | | | [...] - 10/20/2014 4:17 PM PDT [facility]YSIAT[facility] [address] [facility] [address] OFFICE NOTE CHRIS AGUIRRE JR, MD Patient: MARTINEZ ABBASI Admitting: MR #: [id number] LOC: PT TYPE: Adm Date: 10/20/2014 : [...] 10/20/2014 16:17:43 Transcribed on 10/21/2014 05:27:[address] [facility] job# [id number] Confirmation #: [id number] cc: EDWAR [place] PAC [facility], Chris Garcia MD - 10/20/2014 4:05 PM PDTThis office note has been dictated. Job ID# [id number] signed by Chris Aguirre MD at 10/20/2014 [...] [place] | | | | | | [address] | | | | | | | [...]
--- OUTSIDE RECORDS SUMMARY | ~2019-06-19 | XMS | Encounter Summary ---
Demographics + + + | Address | [address] | | | [place] [address] | + + + | Home Phone [...] | [facility] | | | and [place] | + + + | Organization | [facility] | | [...] [place] | | | | | [address] | | + + + + + Care Team Providers + +------+ + | Care Asphalt Plant Operator Name | Role | Phone | + +------+ + | Edwar Wilhelm PA-C | PCP | | + +------+ + Encounter Details +--------+ + + + + | Date | Type | Department | Care Team | Description | +--------+ + + + + | 09/24/ | Orders Only | [facility] | Provider, | | | 2018 | | SYSTEM GENERIC OP | MD [address] | | | | | [address] | [place] | | | | | [address] [place], [place] | [place] [address] | | | | | [address] | | | | | | [phone] | | | +--------+ + + + [...] [place] | | | | | | [address] | | | | | | | | +--------+---------+ + + + documented as of this encounter Visit Diagnoses Not on filedocumented in this encounter"
--- OUTSIDE RECORDS SUMMARY | ~2019-06-19 | XMS | Encounter Summary ---
Demographics + + + | Address | [address] | | | [place] [address] | + + + | Home Phone [...] Author | [facility] | | | and Narenana | + + + | Organization | [facility] | [...] [place] | | | | | [address] | | + + + + + Care Team Providers + +------+ + | Care Sand Plant Attendant Name | Role | Phone | [...] | | | | OP [address] | [place], [place] | | | | | [place], [place] | [address] | | | | | [address] | | | | | | [phone] | | | +--------+ + + + [...] Ren, NADER - 04/10/2015 11:24 AM [facility] [address] [facility] [address] Cancellation/No Show Date: 04/10/2015 Patient Information Patient Name: Martinez Abbasi II Date of : 1970 Age: 44 y.o. Reason for missed visit: Pt called to cancel due to illness Phone call placed: no Plan: Cont with POC Electronically signed by: Della Ren PT, 04/10/2015 11:24 Patient Name: Martinez Abbasi II/: 1970/ documented in this [facility] nter Plan of Treatment +--------+---------+ + + + | Date | Type | Specialty | Care Team | Description | +--------+---------+ + + + | 07/18/ | Office | Physical Medicine | Chris Priest, | | | 2019 | Visit | and Rehabilitation | MD Margaux Forrest[address] | | | | | | [place] | | | | | | [address] | | | | | | | | +--------+---------+ + + + documented as of this encounter Visit Diagnoses Not on filedocumented in this encounter"
--- OUTSIDE RECORDS SUMMARY | ~2019-06-19 | XMS | Encounter Summary ---
Demographics + + + | Address | [address] | | | [place] [address] | + + + | Home Phone [...] + + + | Author | [facility] | | | and Narenana | + + + | Organization | [facility] | | | and [place] [...] [place] | | | | | [address] | | + + + + + Care Team Providers + +------+ + | Care Test Fixture Assembler Name | Role | Phone | + +------+ + | Edwar Wilhelm PA-C | PCP | | + +------+ + Encounter Details +--------+ + + + + | Date | Type | Department | Care Team | Description | +--------+ + + + + | 05/05/ | Documentati | [facility] | Trav Della Velásquez, | | | 2016 | on | MED CTR THERAPY PT | PT [address] | | | | | OP [address] | [place], [place] | | | | | [place], [place] | [address] | | | | | [address] | | | | | | [phone] | | | +--------+ + + + [...] Ren, PT - 05/06/2015 4:52 PM [facility] OP [address] [facility] [address] Cancellation Date: 05/06/2015 Patient Information Patient Name: Martinez Abbasi II Date of : 1970 Age: 44 y.o. Reason for missed visit: Cancelled due to work conflict Phone call placed: no Plan: Cont with POC Electronically signed by: Della Ren PT, 05/06/2015 16:52 Patient Name: Martinez Abbasi [...] [place] | | | | | | [address] | | | | | | | | +--------+---------+ + + + documented as of this encounter Visit Diagnoses Not on filedocumented in this encounter"
--- OUTSIDE RECORDS SUMMARY | ~2019-06-19 | XMS | Encounter Summary ---
Demographics + + + | Address | [address] | | | [place] [address] | + + + | Home Phone [...] + | Author | [facility] | | | and Narenana | + + + | Organization | [facility] | | | and [place] [...] [place] | | | | | [address] | | + + + + + Care Team Providers + +------+ + | Care Iron Launder Operator Name | Role | Phone | [...] | | | OP [address] | [place], [place] | | | | | [place], [place] | [address] | | | | | [address] | | | | | | [phone] | | | +--------+ + + + [...] Ren, NADER - [facility]21/2015 12[facility] [address] [facility] [address] Cancellation/No Show Date: 04/21/2015 Patient Information Patient Name: Martinez Abbasi II Date of : 1970 Age: 44 y.o. Reason for missed visit: Pt called to cancel due to transportation issues Phone call placed: no Plan: Cont with POC Electronically signed by: Della Ren PT, 04/21/2015 12:57 Patient Name: Martinez Abbasi II/: 1970/ documented in this [facility] nter Plan of Treatment +--------+---------+ + + + | Date | Type | Specialty | Care Team | Description | +--------+---------+ + + + | 07/18/ | Office | Physical Medicine | Chris Priest, | | | 2019 | Visit | and Rehabilitation | MD Margaux Forrester | | | | | | [place] | | | | | | [address] | | | | | | | | +--------+---------+ + + + documented as of this encounter Visit Diagnoses Not on filedocumented in this encounter"
--- OUTSIDE RECORDS SUMMARY | ~2019-06-19 | XMS | Encounter Summary ---
Demographics + + + | Address | [address] | | | [place] [address] | + + + | Home Phone | | + + + | Preferred Language | Unknown | + + + | Marital Status | Single | + + + | Temple Affiliation | 1074 | + + + | Race | Unknown | + + + | Ethnic Group | Unknown | + + + Author + + + | Author | [facility] | | | and Narenana | + + + | Organization | [facility] | | [...] [place] | | | | | [address] | | + + + + + Care Team Providers + +------+ + | Care Insole Bottom Filler Name | Role | Phone | + +------+ + | Edwar Wilhelm PA-C | PCP | | + +------+ + Encounter Details +--------+ + + + + | Date | Type | Department | Care Team | Description | +--------+ + + + + | 05/12/ | Documentati | [facility] | Trav Della Velásquez, | | | 2016 | on | MED CTR THERAPY PT | PT [address] | | | | | OP [address] | [place], [place] | | | | | [place], [place] | [address] | | | | | [address] | | | | | | [phone] | | | +--------+ + + + [...] Ren, PT - 05/13/2015 4:59 [facility] [address] [facility] [address] Cancellation Date: 05/13/2015 Patient Information Patient Name: Martinez Abbasi II Date of : 1970 Age: 44 y.o. Reason for missed visit: Pt called to cancel due to having a [employer] Phone call placed: yes - no answer [...] [place] | | | | | | [address] | | | | | | | | +--------+---------+ + + + documented as of this encounter Visit Diagnoses Not on filedocumented in this encounter"
--- OUTSIDE RECORDS SUMMARY | ~2019-06-19 | XMS | Encounter Summary ---
Demographics + + + | Address | [address] | | | [place] [address] | + + + | Home Phone | | + + + | Preferred Language | Unknown | + + + | Marital Status | Single | + + + | Confucianism Affiliation | 1074 | + + + | Race | Unknown | + + + | Ethnic Group | Unknown | + + + Author + + + | Author | [facility] | | | and Narenana | + + + | Organization | [facility] | | | and [...] [place] | | | | | [address] | | + + + + + Care Team Providers + +------+ + | Care Printing Bindery Assistant Name | Role | Phone | + +------+ + | Edwar Wilhelm PA-C | PCP | | + +------+ + Reason for Visit +--------+ + | Reason | Comments | +--------+ + | Other | | +--------+ + Encounter Details +--------+ + + + + | Date | Type | Department | Care Team | Description | +--------+ + + + + | 11/04/ | Telephone | [facility] [place] | Chris Priest, | Other | | 2014 | | PHYSIATRY [address] | MD [address] | | | | | [address] | [place], [place] | | | | | [place], [place] | [address] | | | | | [address] | | | | | | [phone] | | | +--------+ + + + [...] [place] | | | | | | [address] | | | | | | | | +--------+---------+ + + + documented as of this encounter Visit Diagnoses Not on filedocumented in this encounter"
--- OUTSIDE RECORDS SUMMARY | ~2019-06-19 | XMS | Encounter Summary ---
Demographics + + + | Address | [address] | | | [place] [address] | + + + | Home Phone [...] | Author | [facility] | | | and [place]renana | + + + | Organization | [facility] | | | and [place] [...] [place] | | | | | [address] | | + + + + + Care Team Providers + +------+ + | Care Cathode Builder Name | Role | Phone | [...] Rehabilitatio | quadriplegia | [address] | [place] | | | | n | at [address] | [address] | [place], | | | | | level (HCC) | [place], | [place] [address] | | | | | Impaired | [place] [address] | Phone: | | | | | mobility and | Phone: | [phone] | | | | | ADLs | [phone] | Fax: | | | | | Procedures | Fax: | [phone] | | | | | pt eval | [phone] | | +--------+ + + + + + Encounter Details +--------+---------+ + + + | Date | Type | Department | Care Team | Description | +--------+---------+ + + + | 06/15/ | Office | [facility] | Chris Priest, | Impaired mobility | | 2016 | Visit | MED CTR THERAPY PT | MD [address] | and activities of | | | | OP [address] | [place] | daily living | | | | [place], [place] | [address] | (Primary Dx); | | | | [address] | | Impaired functional | | | | [phone] | Della Ravi, PT | mobility, balance, | | | | | [address] | gait, and endurance; | | | | | [place] | Quadriplegia, | | | | | [address] | C5-C7, incomplete | | | | | | ([facility]); Posture | | | | | Martin Ravi, | imbalance; Neck | | | | | [employer] [address] | pain; Bilateral | | | | | [place] | shoulder pain, | | | | | [address] | unspecified | | | | | [...] Goal 3 Status Comment: no change: currently 27/100 OP PT Goals Goal 1: 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 Goal 1 Status: progressing. Treatment Plan/Interventions: 72967 - PT Evaluation 96459 - Therapeutic Exercise 71907 - Neuromuscular Reeducation 52417 - PT Re-Evaluation 22916 - Gait Training 03911 - Therapeutic Activities 63489 - Manual Therapy 62902 - Self Care/Home Management 42391 - Electrical Stimulation, Attended Requested # of [...] might be different from t he original. [facility] CTR THERAPY PT OP [address] [place] [address] Physical Therapy Progress Assessment Re-Certification Date: 06/16/2015 [...] Rehab Precautions Office Visit from 02/23/2015 in [facility] CTR THERAPY PT OP Rehab Precautions Precautions Spinal, Cervical Rehab Learning Style Office Visit from 02/23/2015 in [facility] CTR THERAPY PT OP Learning [...] and they are waiting to hear from [employer]. Patient reports improvements with increased UE/hands and trunk strength/ROM and increased sensation and now feels some into thighs. However continues to report high pain levels in neck/BARRERA and right shoulder/upper back and weakness in LE's/trunk. Pt continues to require assistance wit h transfers/mobility and uses an electric tilt-in space WC for mobility in the house and [facility]. OBJECTIVE: Mobility: Bed Mobility Additional Documentation: supine to/from sit Assistive Device: bed rails Supine to Sit, Level of [place]: moderate assist (50% patient effort) Sit to Supine, Level of [place]: moderate assist (50% patient effort) Safety Issues: decreased use of arms for pushing/pulling, decreased use of legs for bridgin g/pushing, impaired trunk control for bed mobility Impairments: sensation decreased, strength decreased, impaired balance, coordination impair ed, motor control impaired, postural control impaired, sensory feedback impaired, pain Transfers Additional Documentation: bed to/from chair Bed-Chair, Level of [place]: minimum assist (75% patient effort) (assist with LE's to guide knees: bed is higher than WC) Chair-Bed, Level of [place]: moderate assist (50% patient effort) Ggh-Sfymg-Sii, Assistive Device: sliding board (SB used only [...] (C8): 1 to 2-/5 2-/5 2- 2- Candy Decorator: Poor: able to close partially without using tenodesis Poor: able to close partially w ithout using tenodesis poor poor Clonus: positive positive Outcome Measure: Initial Assessment Progress Note / Discharge Spinal Cord [place] Measure Special Tests: Neuro Fabiola Assessments Modified Fabiola Scale for Hypertonia: 1+ Assessment Martinez Bearchum II has been participating in therapy for [...] Goal 3 Status Comment: no change: currently 27/100 OP PT Goals Goal 1: 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 Goal 1 Status: progressing. Plan Date of Onset: 02/08/2014 Start of Care Date: 02/23/2015 Requested # of Visits: 24 visits 2x/week for 12 weeks Certification From: 06/16/2015 Certification To: 09/09/2015 Treatment Plan/Interventions 77579 - PT Fzbgtvecoc43433 - Therapeutic Eicuvjpx60401 - Neuromuscular Vujmdvefvko66986 - P T Re-Fdwbnlhkis81248 - Gait Vzfimkry86907 - Therapeutic Wtptaylkjv48294 - Manual Sahmjyl4502 5 - Self Care/Home Rskgdapien03028 - Electrical Stimulation, Attended Patient and/or family [...] [place] | | | | | | [address] | | | | | | | [...]
--- OUTSIDE RECORDS SUMMARY | ~2019-06-19 | XMS | Encounter Summary ---
Demographics + + + | Address | [address] | | | [place] [address] | + + + | Home Phone [...] | Author | [facility] | | | and [place]renana | + + + | Organization | [facility] | | | and [place] [...] [place] | | | | | [address] | | + + + + + Care Team Providers + +------+ + | Care Testing Analyst Name | Role | Phone | [...] Telephone | [facility] [place] | Chris Priset, | Other | | 2014 | | PHYSIATRY [address] | MD [address] | | | | | [address] | [place], [place] | | | | | [place], [place] | [address] | | | | | [address] | | | | | | [phone] | | | +--------+ + + + [...] [place] | | | | | | [address] | | | | | | | | +--------+---------+ + + + documented as of this encounter Visit Diagnoses Not on filedocumented in this encounter"
--- OUTSIDE RECORDS SUMMARY | ~2019-06-19 | XMS | Encounter Summary ---
Demographics + + + | Address | [address] | | | [place] [address] | + + + | Home Phone [...] | Author | [facility] | | | and [place]ana | + + + | Organization | [facility] | | | and [...] [place] | | | | | [address] | | + + + + + Care Team Providers + +------+ + | Care Fluid Dynamicist Name | Role | Phone | + [...] | | | [address] [place] | [place] [address] | | | | | [place] [address] | | | | | | [phone] | | | +--------+ + + + [...] [place] | | | | | | [address] | | | | | | | [...]
--- OUTSIDE RECORDS SUMMARY | ~2019-06-19 | XMS | Encounter Summary ---
Demographics + + + | Address | [address] | | | [place] [address] | + + + | Home Phone | | + + + | Preferred Language | Unknown | + + + | Marital Status | Single | + + + | Latter Day Affiliation | 1074 | + + + | Race | Unknown | + + + | Ethnic Group | Unknown | + + + Author + + + | Author | [facility] | | | and [place]ana | + + + | Organization | [facility] | | | and [place] [...] [place] | | | | | [address] | | + + + + + Care Team Providers + +------+ + | Care Housing Case Manager Name | Role | Phone | [...] | | Services | Therapy / | | Chris Garcia MD | [facility] [address] | | | Required | Rehabilitatio | Quadriplegia | [address] | | | | n | ([facility]) | [address] | [place], | | | | | | [place], | [place] [address] | | | | | | [place] [address] | Phone: | | | | | | Phone: | [phone] | | | | | | [phone] | Fax: | | | | | | Fax: | [phone] | | | | | | [phone] | | +--------+ + + + + + Reason for Visit + + + | Reason | Comments | + + + | Referral | | + + + Encounter Details +--------+ + + + + | Date | Type | Department | Care Team | Description | +--------+ + + + + | 12/23/ | Telephone | [facility] [place] | Chris Priest, | Referral | | 2014 | | PHYSIATRY [address] | MD [address] | | | | | [address] | [place] | | | | | [place] | [address] | | | | | [address] | | | | | | [phone] | | | +--------+ + + + [...] [place] | | | | | | [address] | | | | | | | | +--------+---------+ + + + + + +--------+ + + | Name | Type | Priori | Associated Diagnoses | Order Schedule | | | | ty | | | + + +--------+ + + | * [facility] | Outpatient | Routin | Quadriplegia (HCC) | Ordered: 12/25/2014 | | Therapy - AMB | Referral | e | | | | Referral | | | | | + + +--------+ + + documented as of this encounter Visit Diagnoses + + | Diagnosis | + + | Quadriplegia (HCC) - Primary Quadriplegia, unspecified | + + documented in this encounter"
--- OUTSIDE RECORDS SUMMARY | ~2019-06-19 | XMS | Encounter Summary ---
Demographics + + + | Address | [address] | | | [place] [address] | + + + | Home Phone [...] + + | Author | [facility] | | | and [place]renana | + + + | Organization | [facility] | | | and [place] | [...] [place] | | | | | [address] | | + + + + + Care Team Providers + +------+ + | Care Field Broomer Name | Role | Phone | + [...] | | | | CENTER [address] | [address] | | | | | [place] | [place] | | | | | [address] | [address] | | | | | [phone] | | | +--------+ + + + [...] would like. You can call the main [facility] number and be transferred to the wound [...] 0 | 03/22/19 | | | (MYCOSTATIN) [id number] | | | | 14 | | [...] [place] | | | | | | [address] | | | | | | | [...] [address] | [place] | [phone] | | [facility] | | [address] | | | - LABORATORY | | [...]
--- OUTSIDE RECORDS SUMMARY | ~2019-06-19 | XMS | Encounter Summary ---
Demographics + + + | Address | [address] | | | [place] [address] | + + + | Home Phone [...] Author | [facility] | | | and [place] | + + + | Organization | [facility] | | | and [place] [...] [place] | | | | | [address] | | + + + + + Care Team Providers + +------+ + | Care Public Health Technologist Name | Role | Phone | + [...] + + | 10/01/ | Telephone | [facility] [place] | Chris Priest, | Other | | 2014 | | PHYSIATRY [address] | MD [address] | | | | | [address] | [place], [place] | | | | | [place], [place] | [address] | | | | | [address] | | | | | | [phone] | | | +--------+ + + + [...] [place] | | | | | | [address] | | | | | | | | +--------+---------+ + + + documented as of this encounter Visit Diagnoses Not on filedocumented in this encounter"
--- OUTSIDE RECORDS SUMMARY | ~2019-06-19 | XMS | Encounter Summary ---
Demographics + + + | Address | [address] | | | [place] [address] | + + + | Home Phone [...] Author | [facility] | | | and [place] | + + + | Organization | [facility] | | | and [...] [place] | | | | | [address] | | + + + + + Care Team Providers + +------+ + | Care Artist Woodblock Name | Role | Phone | + [...] [place] | | | | n | ([facility]) | [address] | [address] | | | | | Abdominal | [place], | [place], [place] | | | | | spasms | [place] [address] | [address] Phone: | | | | | Muscle spasm | Phone: | [phone] | | | | | of both | [phone] | Fax: | | | | | lower legs | Fax: | [phone] | | | | | Neurogenic | [phone] | | | | | | bladder [...] + + | 06/14/ | Office | [facility] | Chris Priest, | Quadriplegia (HCC) | | 2017 | Visit | PHYSIATRY [address] | MD [address] | (Primary Dx); | | | | [address] | [place] | Abdominal spasms; | | | | [place] | [address] | Muscle spasm of both | | | | [address] | | lower legs; | | | | [phone] | | Neurogenic bladder; | | | [...] encounter Patient Instructions Patient Instructions Dia Loza, Senior Ui Ux Developer - 06/14/2016 5:02 PM PDTContin ue with [...] today in follow-up after [facility] . Martinez Abbasi II reports [...] baclofen is n ow being managed through [employer]. Martinez Abbasi II reports that he has increased function in his arms and hands. With yash nuation of physical therapies. 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 Martinez Abbasi [...] to lean to his left side. Martinez Bearchum II denies ski n irritation or breakdown. Denies any wounds at present. Martinez Abbasi II reports that he does digital stimulation every day with results every oth er day. He reports it takes about 2 hours. He reports that he is currently taking stool soft ner. Martinez Abbasi II denies skin iritation. Martinez bAbasi II also reports he is not curr [...] to the cervical region. 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 He has 4+/5 wrist [...] Martinez Abbasi II has pain contract through [facility] and is advised to continue care [...] their medical treatment plan. Chris Priest MD (.) ELECTRONICALLY SIGNED BY: Dia Loza, Dean Of Admissions, 06/14/2016 16:58 I Ashley Ortiz am personally [...] [place] | | | | | | [address] | | | | | | | | +--------+---------+ + + + + + +--------+ + + | Name | Type | Priori | Associated Diagnoses | Order Schedule | | | | ty | | | + + +--------+ + + | * SARAH KOENIG | Outpatient | Routin | Quadriplegia (HCC) | Ordered: 06/14/2016 | | Physiatry - [...]
--- OUTSIDE RECORDS SUMMARY | ~2019-06-19 | XMS | Encounter Summary ---
Demographics + + + | Address | [address] | | | [place] [address] | + + + | Home Phone | | + + + | Preferred Language | Unknown | + + + | Marital Status | Single | + + + | Episcopal Affiliation | 1074 | + + + | Race | Unknown | + + + | Ethnic Group | Unknown | + + + Author + + + | Author | [facility] | | | and [place]renana | + + + | Organization | [facility] | | | and [place] [...] [place] | | | | | [address] | | + + + + + Care Team Providers + +------+ + | Care Preschool Special Education Teacher Name | Role | Phone | [...] PHYSIATRY [address] | MD [address] | | | | | [address] | [place], [place] | | | | | [place], [place] | [address] | | | | | [address] | | | | | | [phone] | | | +--------+ + + + [...] [place] | | | | | | [address] | | | | | | | | +--------+---------+ + + + documented as of this encounter Visit Diagnoses Not on filedocumented in this encounter"
--- OUTSIDE RECORDS SUMMARY | ~2019-06-19 | XMS | Encounter Summary ---
Demographics + + + | Address | [address] | | | [place] [address] | + + + | Home Phone [...] + + + | Author | [facility] | | | and [place]ana | + + + | Organization | [facility] | | | and [place] [...] [place] | | | | | [address] | | + + + + + Care Team Providers + +------+ + | Care Salad Bar Clerk Name | Role | Phone | [...] | | | | OP [address] | [place], [place] | | | | | [place], [place] | [address] | | | | | [address] | | | | | | [phone] | | | +--------+ + + + [...] Ren, PT - 05/13/2015 4[facility]59 [facility] OP [address] [facility] [address] Cancellation Date: 05/13/2015 Patient Information Patient Name: Martinez Abbasi II Date of : 1970 Age: 44 y.o. Reason for missed visit: Pt called to cancel due to having a [employer] Phone call placed: yes - no answer [...] [place] | | | | | | [address] | | | | | | | | +--------+---------+ + + + documented as of this encounter Visit Diagnoses Not on filedocumented in this encounter"
--- OUTSIDE RECORDS SUMMARY | ~2019-06-19 | XMS | Encounter Summary ---
Demographics + + + | Address | [address] | | | [place] [address] | + + + | Home Phone | | + + + | Preferred Language | Unknown | + + + | Marital Status | Single | + + + | Moravian Affiliation | 1074 | + + + | Race | Unknown | + + + | Ethnic Group | Unknown | + + + Author + + + | Author | [facility] | | | and Narenana | + + + | Organization | [facility] | | | and [...] [place] | | | | | [place] | | | | | [address] | | + + + + + Care Team Providers + +------+ + | Care Weight Calculator Name | Role | Phone | + [...] Rehabilitatio | quadriplegia | [address] | | | | n | at [address] | [address] | [place], | | | | | level (HCC) | [place], | [place] [address] | | | | | Impaired | [place] [address] | Phone: | | | | | mobility and | Phone: | [phone] | | | | | ADLs | [phone] | Fax: | | | | | Procedures | Fax: | [phone] | | | | | pt eval | [phone] | | +--------+ + + + + + Encounter Details +--------+---------+ + + + | Date | Type | Department | Care Team | Description | +--------+---------+ + + + | 04/08/ | Office | [facility] | Chris Priest, | Impaired mobility | | 2016 | Visit | MED CTR THERAPY PT | MD [address] | and activities of | | | | OP [address] | [place] | daily living | | | | [place] | [address] | (Primary Dx); | | | | [address] | | Impaired functional | | | | [phone] | Della Ravi, PT | mobility, balance, | | | | | [address] | gait, and endurance; | | | | | [place] | Quadriplegia, | | | | | [address] | C5-C7, incomplete | | | | | | ([facility]); Posture | | | | | Igor Monaco, | imbalance; Neck | | | | | Plant Maintenance Supervisor | pain; Bilateral | | | | [...] of this note might be different from mickey francis. [facility] CTR THERAPY PT OP [address] [place] [address] Physical Therapy Daily Treatment Note Date: 04/08/2015 [...] Rehab Precautions Office Visit from 02/23/2015 in [facility] CTR THERAPY PT OP Rehab Precautions Precautions Spinal, Cervical Rehab Learning Style Office Visit from 02/23/2015 in [facility] CTR THERAPY PT OP Learning [...] [place] | | | | | | [address] | | | | | | | [...]
--- OUTSIDE RECORDS SUMMARY | ~2019-06-19 | XMS | Encounter Summary ---
Demographics + + + | Address | [address] | | | [place] [address] | + + + | Home Phone [...] [facility] | | | and Narenana | + + + | Organization | [facility] | | | and [...] [place] | | | | | [address] | | + + + + + Care Team Providers + +------+ + | Care Police Justice Name | Role | Phone | + [...] | | | | OP [address] | [place], [place] | | | | | [place], [place] | [address] | | | | | [address] | | | | | | [phone] | | | +--------+ + + + [...] Ren, PT - [facility]17[facility]2016 10[facility] [address] [place] [address] Physical Therapy Discharge Note This discharge is [...] LONG | | | | | | [id number] | | | | | | | | +--------+---------+ + + + documented as of this encounter Visit Diagnoses Not on filedocumented in this encounter"
--- OUTSIDE RECORDS SUMMARY | ~2019-06-19 | XMS | Encounter Summary ---
Demographics + + + | Address | [address] | | | [place] [address] | + + + | Home Phone [...] + | Author | [facility] | | | and Narenana | + + + | Organization | [facility] [...] [place] | | | | | [address] | | + + + + + Care Team Providers + +------+ + | Care Material Attendant Name | Role | Phone | [...] + + | 01/16/ | Telephone | [facility] [place] | Chris Priest, | Other | | 2016 | | [address]YSIATRY [address] | MD [address] | | | | | [address] | [place], [place] | | | | | [place], [place] | [address] | | | | | [address] | | | | | | [phone] | | | +--------+ + + + [...] [place] | | | | | | [address] | | | | | | | | +--------+---------+ + + + documented as of this encounter Visit Diagnoses Not on filedocumented in this encounter"
--- OUTSIDE RECORDS SUMMARY | ~2019-06-19 | XMS | Encounter Summary ---
Demographics + + + | Address | [address] | | | [place] [address] | + + + | Home Phone | | + + + | Preferred Language | Unknown | + + + | Marital Status | Single | + + + | Uatsdin Affiliation | 1074 | + + + | Race | Unknown | + + + | Ethnic Group | Unknown | + + + Author + + + | Author | [facility] | | | and Narenana | + + + | Organization | [facility] | | [...] [place] | | | | | [address] | | + + + + + Care Team Providers + +------+ + | Care Wire Spiral Binder Name | Role | Phone | + +------+ + | Edwar Wilhelm PA-C | PCP | | + +------+ + Encounter Details +--------+ + + + + | Date | Type | Department | Care Team | Description | +--------+ + + + + | 12/31/ | Hospital | [facility] | Conversion | | | 2016 | Encounter | [facility] | Transaction, | | | | | CLINIC [address] | Provider Unknown | | | | | [address] [place], [place] | | | | | | [address] | (Fax) | | | | | [phone] | | | +--------+ + + + [...] 0 | 03/22/19 | | | (MYCOSTATIN) [id number] | | | | 14 | | [...] LONG | | | | | | [address] | | | | | | | | +--------+---------+ + + + documented as of this encounter Visit Diagnoses Not on filedocumented in this encounter
--- OUTSIDE RECORDS SUMMARY | ~2019-06-19 | XMS | Clinical Summary ---
Demographics + + + | Address | [address] | | | [place] [address] | + + + | Home Phone | | + + + | Preferred Language | Unknown | + + + | Marital Status | Single | + + + | Mormonism Affiliation | 1074 | + + + | Race | Unknown | + + + | Ethnic Group | Unknown | + + + Author + + + | Author | [facility] | | | and Narenana | + + + | Organization | [facility] | | | and [...] [place] | | | | | [address] | | + + + + + Care Team Providers + +------+ + | Care Finance Mgr Name | Role | Phone | + [...] mg | rectally once | | | 09/15 | | e | | suppository | [...] | mouth four times | | | 20 | | e | | | daily [...] | mouth three times | | | 20 | | e | | packet | [...] (RISAMINE) | times daily. | | | 20 | | e | | 0.44-20.625% | [...] 01/2 | | Activ | | (MYCOSTATIN) [id number] | | | | 4/20 | | [...] | 2 times daily. | | | 20 | | e | | capsule | | | | 14 | | | + + +---+---+------+---+-------+ | gabapentin | Take 2 capsules by | | 0 | 01/2 | | Activ | | (NEURONTIN) 100 mg | mouth 3 times daily. | | | 420 | | e | | capsule | [...] + + + | Overview: Problem list cupola repairer utility | + + + + + [...] + + + + | Overview: Overview: C7-[id number] with cord transection. | | Sensation intact [...] [place] | | | | | | [address] | | | | | | | [...] + + | Vaccine: Influenza | | 12/18/2017, 11/19/2014, | | | (Season Ended) | 0 | 12/24/2013, Additional history | | | | | exists | | + + + + + | Vaccine: | | 09/23/2011 | | | Dtap/Tdap/Td (2 - | 2 | | | | Td) | | | [...] +--------+ +---------+--------+ | MEDICARE | MEDICA | [id number] | 07/29/19 | [phone] | | Medica | | | RE | | 16-Pre | 5 | | re | | | PART A | | sent | | | | | | AND B | | | | | | + +--------+ +--------+ +---------+--------+ | [employer] | MODA | [id number] | 02/17/ | [phone] | | Medica | | MEDICAID HMO | HEALTH | | 2014-P | 1 | | id | | | MDCD | | resent | | | | | | HMO OR | | | | | | + +--------+ +--------+ +---------+--------+ | [facility] | IHS | [id number] | | | | Indemn | | [...] | | al/Fam | | 1971 | [phone] | [place] [address] | | | adrián | | | 4 (Home) | | + +--------+ +--------+ + + Advance Directives + + + + + | Type | Date Recorded | Patient | Explanation | | | | Facilities Operator | | + + + + + | Power of | | | | | Taper Printed Circuit Layout | | | | + + + [...]
--- OUTSIDE RECORDS SUMMARY | ~2019-06-19 | XMS | Clinical Summary ---
Demographics + + + | Address | [address] | | | [place] [address] | + + + | Home Phone | | + + + | Preferred Language | Unknown | + + + | Marital Status | | + + + | Taoist Affiliation | Unknown | + + + | Race | Unknown | + + + | Ethnic Group | Unknown | + + + Author + + + | Author | [facility] (Historical as of | | | 10-13-18) | + + + | Organization | [facility] (Historical as of | | | 10-13-18) | + + + | Address | [...] | | + + +---------+ + | [place] | ECON | Unknown | | + + +---------+ + Care Team Providers + +------+ + | Care Lipstick Molder Name | Role | Phone | + +------+ + | Edwar Wilhelm | PP | | + +------+ + Allergies + + + + + + | Active Allergy | Reactions | Severity | Noted | Comments | | | | | Date | | + + + + + + | Bee Venom | Anaphylaxis, | High | 10/18/20 | | | | Swelling, Rash | [...] lidocaine | | UR | Once | 08/27 | | Activ | | (XYLOCAINE) 2 % | | | | 2/20 | | e | | uro-ject | | | | 17 | | | | gelIndications: | | | | | | | | Neurogenic bladder | | | | | | | + + +-------+ +------+------+-------+ | sodium chloride | 60 mL | IR | Continuous | 09/27 | | Activ | | (IR) 0.9 % | | | | 07/16 | | e | | irrigation 60 [...] 02/14/2013 | | | (Season Ended) | 0 | | | + + + + [...] +------+-------+ + | MEDICARE | MEDICA | [id number] | | | [address] | | | RE | | | | [place] [address] | | | IP-OP | | | | | + +--------+ +------+-------+ + | MEDICAID | EASTER | [id number] | | | [address] | | | N | | | | [place] | | | [place] | | | | [address] | | | MAKE UP 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
--- OUTSIDE RECORDS SUMMARY | ~2019-06-19 | XMS | Encounter Summary ---
Demographics + + + | Address | [address] | | | [place] [address] | + + + | Home Phone [...] | Author | [facility] | | | and Narenana | + + + | Organization | [facility] | | | and [...] [place] | | | | | [address] | | + + + + + Care Team Providers + +------+ + | Care Business Intelligence Etl Developer Name | Role | Phone | + [...] + + | 10/18/ | Telephone | [facility] | Diomedes Zarate, | Other | | 2016 | | PHYSIATRY [address] | MD [address] | | | | | [address] | [address] | | | | | [place], [place] | [place] [address] | | | | | [address] | [phone] | | | | | [phone] | | | +--------+ + + + [...] LONG | | | | | | [address] | | | | | | | | +--------+---------+ + + + documented as of this encounter Visit Diagnoses Not on filedocumented in this encounter"
--- OUTSIDE RECORDS SUMMARY | ~2019-06-19 | XMS | Encounter Summary ---
Demographics + + + | Address | [address] | | | [place] [address] | + + + | Home Phone | | + + + | Preferred Language | Unknown | + + + | Marital Status | Single | + + + | Lutheran Affiliation | 1074 | + + + | Race | Unknown | + + + | Ethnic Group | Unknown | + + + Author + + + | Author | [facility] | | | and Narenana | + + + | Organization | [facility] | | | and [place] [...] [place] | | | | | [address] | | + + + + + Care Team Providers + +------+ + | Care Casing Tier Name | Role | Phone | + +------+ + | Edwar Wilhelm PA-C | PCP | | + +------+ + Encounter Details +--------+ + + + + | Date | Type | Department | Care Team | Description | +--------+ + + + + | 09/24/ | Orders Only | [facility] | Provider, | | | 2018 | | SYSTEM GENERIC OP | MD [address] | | | | | CONVERSION [address] | [place] | | | | | [address] [place], [place] | [place] [address] | | | | | [address] | | | | | | [phone] | | | +--------+ + + + [...] LONG | | | | | | [address] | | | | | | | | +--------+---------+ + + + documented as of this encounter Visit Diagnoses Not on filedocumented in this encounter"
--- OUTSIDE RECORDS SUMMARY | ~2019-06-19 | XMS | Encounter Summary ---
Demographics + + + | Address | [address] | | | [place] [address] | + + + | Home Phone [...] Author | [facility] | | | and Narenana | + + + | Organization | [facility] | | | and [...] [place] | | | | | [address] | | + + + + + Care Team Providers + +------+ + | Care Video Library Assistant Name | Role | Phone | [...] + + | 03/03/ | Office | [facility] | Chris Priest, | Incomplete | | 2014 | Visit | [address]SI[address] | MD [address] | quadriplegia at C6 | | | | [address] | [place] | level (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 Job ID# [id number] signed by Chris Priest MD at 03/03/2014 2:59 PM [facility]Chris acosta MD - 03/03/2014 12:00 AM PST [facility] [address] [place] [address] FAX: [phone] OFFICE VISIT PHYSICAL MEDICINE REHABILITATION PROGRESS NOTE [...] is having a lot of blood in pr s urine. He was told to reduce [...] injury. Greater than 40 minutes was spent kpio-kq-rksq today with Mr. Abbasi, over half of which was spent formulating and discussing his medical treatment plan. CC: Edwar Wilhelm PA-C. Chris Priest Jr, MD [place] / K[facility] JOB #: [id number] signed by Chris Priest MD at 03/04/2014 10:32 AM Adam fabian in this encounter Plan of Treatment +--------+---------+ + + + | Date | Type | Specialty | Care Team | Description | +--------+---------+ + + + | 07/18/ | Office | Physical Medicine | Chris Priest, | | | 2019 | Visit | and Rehabilitation | MD Margaux Alexandre | | | | | | [place] | | | | | | [address] | | | | | | | [...]
--- OUTSIDE RECORDS SUMMARY | ~2019-06-19 | XMS | Encounter Summary ---
Demographics + + + | Address | [address] | | | [place] [address] | + + + | Home Phone | | + + + | Preferred Language | Unknown | + + + | Marital Status | Single | + + + | Mormon Affiliation | 1074 | + + + | Race | Unknown | + + + | Ethnic Group | Unknown | + + + Author + + + | Author | [facility] | | | and Narenana | + + + | Organization | [facility] | | | and [place] [...] [place] | | | | | [address] | | + + + + + Care Team Providers + +------+ + | Care Senior Financial Consultant Name | Role | Phone | [...] + + | 11/24/ | Emergency | [facility] | [place] | Fibula fracture, | | 2014 | | [facility] EM[facility]Y | Eliu Garcia MD [address] | left, closed, | | | | CENTER [address] | [address] | initial encounter | | | | [place] | [place] [address] | (Primary Dx); Left | | | | [address] | [phone] | knee sprain, initial | | | | [phone] | | encounter | +--------+ + + [...] Discharge Instructions Instructions Eliu Jacob MD - 11/24/2014Use a walking boot to [...] 0 | 03/22/19 | | | (MYCOSTATIN) [id number] | | | | 14 | | [...] 1-2 tablets by | | 0 | 02/13/20 | | | (ROXICODONE) 5 mg | [...] | | | | | [place] | | | | | | [address] | | | | | | | [...] | Gideon, Rad Results In - 11/24/2014 12:29 PM PDT [...]
--- OUTSIDE RECORDS SUMMARY | ~2019-06-19 | XMS | Encounter Summary ---
Demographics + + + | Address | [address] | | | [place] [address] | + + + | Home Phone [...] | Author | [facility] | | | and Narenana | + + + | Organization | [facility] | | | and [...] [place] | | | | | [address] | | + + + + + Care Team Providers + +------+ + | Care Distributor Advertising Material Name | Role | Phone | + [...] + + | 06/12/ | Telephone | [facility] [place] | Chris Priest, | Other | | 2014 | | [address]SIAT[address] | MD [address] | | | | | [address] | [place], [place] | | | | | [place] | [address] | | | | | [address] | | | | | | [phone] | | | +--------+ + + + [...] LONG | | | | | | [address] | | | | | | | | +--------+---------+ + + + documented as of this encounter Visit Diagnoses Not on filedocumented in this encounter"
--- OUTSIDE RECORDS SUMMARY | ~2019-06-19 | XMS | Encounter Summary ---
Demographics + + + | Address | [address] | | | [place] [address] | + + + | Home Phone | | + + + | Preferred Language | Unknown | + + + | Marital Status | Single | + + + | Episcopalian Affiliation | 1074 | + + + | Race | Unknown | + + + | Ethnic Group | Unknown | + + + Author + + + | Author | [facility] | | | and Narenana | + + + | Organization | [facility] | [...] [place] | | | | | [address] | | + + + + + Care Team Providers + +------+ + | Care Ecd Name | Role | Phone | + [...] Rehabilitatio | quadriplegia | [address] | [place] | | | | n | at [address] | [address] | [place], | | | | | level (HCC) | [place], | [place] [address] | | | | | Impaired | [place] [address] | Phone: | | | | | mobility and | Phone: | [phone] | | | | | ADLs | [phone] | Fax: | | | | | Procedures | Fax: | [phone] | | | | | pt eval | [phone] | | +--------+ + + + + + Encounter Details +--------+---------+ + + + | Date | Type | Department | Care Team | Description | +--------+---------+ + + + | 06/15/ | Office | [facility] | Chris Priest, | Impaired mobility | | 2016 | Visit | MED CTR THERAPY PT | MD [address] | and activities of | | | | OP [address] | [place] | daily living | | | | [place], [place] | [address] | (Primary Dx); | | | | [address] | | Impaired functional | | | | [phone] | Della Ravi, PT | mobility, balance, | | | | | [address] | gait, and endurance; | | | | | [place] | Quadriplegia, | | | | | [address] | C5-C7, incomplete | | | | | | ([facility]); Posture | | | | | Martin Ravi, | imbalance; Neck | | | | | [place] [address] | pain; Bilateral | | | | | [place] | shoulder pain, | | | | | [address] | unspecified | | | | | [...] sen sation, coordination, proprioception and transfers. 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 Goal 1 Status: progressing. Treatment Plan/Interventions: 74198 - PT Evaluation 62244 - Therapeutic Exercise 01124 - Neuromuscular Reeducation 39316 - PT Re-Evaluation 59189 - Gait Training 79816 - Therapeutic Activities 35102 - Manual Therapy 30865 - Self Care/Home Management 996[address] - Electrical Stimulation, Attended Requested # of [...] might be different from t he original. [facility] THERAP[facility] PT OP [address] [place] [address] Physical Therapy Progress Assessment Re-Certification Date: 06/16/2015 [...] Rehab Precautions Office Visit from 02/23/2015 in [facility] TH[facility] PT OP Rehab Precautions Precautions Spinal, Cervical Rehab Learning Style Office Visit from 02/23/2015 in [facility] PT OP Learning Style [...] [facility]. Patient reports improvements with increased UE/hands and trunk strength/ROM and increased sensation and now feels some into thighs. However continues to report high pain levels in neck/BARERRA and right shoulder/upper back and weakness in LE's/trunk. Pt continues to require assistance wit h transfers/mobility and uses an electric tilt-in space WC for mobility in the house and [facility]. OBJECTIVE: Mobility: Bed Mobility Additional Documentation: supine to/from sit Assistive Device: bed rails Supine to Sit, Level of Lyon: moderate assist (50% patient effort) Sit to Supine, Level of Lyon: moderate assist (50% patient effort) Safety Issues: decreased use of arms for pushing/pulling, decreased use of legs for bridgin g/pushing, impaired trunk control for bed mobility Impairments: sensation decreased, strength decreased, impaired balance, coordination impair ed, motor control impaired, postural control impaired, sensory feedback impaired, pain Transfers Additional Documentation: bed to/from chair Bed-Chair, Level of Lyon: minimum assist (75% patient effort) (assist with LE's to guide knees: bed is higher than WC) Chair-Bed, Level of Lyon: moderate assist (50% patient effort) Dqy-Lpphs-Yiq, Assistive Device: sliding board (SB used only [...] (C8): 1 to 2-/5 2-/5 2- 2- Dirt Bike Racer: Poor: able to close partially without using tenodesis Poor: able to close partially w ithout using tenodesis poor poor Clonus: positive positive Outcome Measure: Initial Assessment Progress Note / Discharge Spinal Cord Lyon Measure Special Tests: Neuro Fabiola Assessments Modified [...] 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 Goal 1 Status: progressing. Plan Date of Onset: 02/08/2014 Start of Care Date: 02/23/2015 Requested # of Visits: 24 visits 2x/week for 12 weeks Certification From: 06/16/2015 Certification To: 09/09/2015 Treatment Plan/Interventions 32056 - PT [id number] - Therapeutic Molgfymh13138 - Neuromuscular Rvmmvjzfgks74846 - P T Re-Bebamyntbt12424 - Gait Tzbpuqzk59417 - Therapeutic Yotsmonmbr19692 - Manual Eyevkdb4768 5 - Self Care/Home Pcomjtaerx40287 - Electrical Stimulation, Attended Patient and/or family [...] [place] | | | | | | [address] | | | | | | | [...]
--- OUTSIDE RECORDS SUMMARY | ~2019-06-19 | XMS | Encounter Summary ---
Demographics + + + | Address | [address] | | | [place] [address] | + + + | Home Phone | | + + + | Preferred Language | Unknown | + + + | Marital Status | Single | + + + | Caodaism Affiliation | 1074 | + + + | Race | Unknown | + + + | Ethnic Group | Unknown | + + + Author + + + | Author | [facility] | | | and Narenana | + + + | Organization | [facility] | | | and [place] [...] [place] | | | | | [address] | | + + + + + Care Team Providers + +------+ + | Care Circuit Breaker Mechanic Name | Role | Phone | + +------+ + | Edwar Wilhelm PA-C | PCP | | + +------+ + Reason for Visit +--------+ + | Reason | Comments | +--------+ + | Forms | | +--------+ + Encounter Details +--------+ + + + + | Date | Type | Department | Care Team | Description | +--------+ + + + + | 11/11/ | Telephone | [facility] [place] | Chris Priest, | Forms | | 2014 | | PHYSIATRY [address] | MD [address] | | | | | [address] | [place], [place] | | | | | [place], [place] | [address] | | | | | [address] | | | | | | [phone] | | | +--------+ + + + [...] [place] | | | | | | [address] | | | | | | | | +--------+---------+ + + + documented as of this encounter Visit Diagnoses Not on filedocumented in this encounter"
--- OUTSIDE RECORDS SUMMARY | ~2019-06-19 | XMS | Encounter Summary ---
Demographics + + + | Address | [address] | | | [place] [address] | + + + | Home Phone [...] | Author | [facility] | | | and Narenana | + + + | Organization | [facility] | | | and [place] [...] [place] | | | | | [address] | | + + + + + Care Team Providers + +------+ + | Care Cfo Controller Name | Role | Phone | + [...] + + | 10/18/ | Telephone | [facility] | Diomedes Zarate, | Other | | 2016 | | PHYSIATRY [address] | [address] | | | | | [address] | [address] | | | | | [place], [place] | [place] [address] | | | | | [address] | [phone] | | | | | [phone] | | | +--------+ + + + [...] LONG | | | | | | [address] | | | | | | | | +--------+---------+ + + + documented as of this encounter Visit Diagnoses Not on filedocumented in this encounter"
--- OUTSIDE RECORDS SUMMARY | ~2019-06-19 | XMS | Encounter Summary ---
Demographics + + + | Address | [address] | | | [place] [address] | + + + | Home Phone [...] [facility] | | | and Narenana | + + + | Organization | [facility] | | [...] [place] | | | | | [address] | | + + + + + Care Team Providers + +------+ + | Care Dictating Machine Typist Name | Role | Phone | + [...] | | | | function | | [place], | | | | | Gastroesopha | | [place] [address] | | | | | geal reflux | | Phone: | | | | | disease | | [phone] | | | | | without | | Fax: | | | | | esophagitis | | [phone] | | | | | Abdominal | [...] + + | 12/19/ | Anesthesia | [facility] | Blane Tompkins | | | 2015 | Event | MED CTR MP INTRA OP | MD Abdulkadir [address] | | | | | [address] | [facility] | | | | | [place] | [place] [address] | | | | | [address] | [phone] | | | | | [phone] | | | +--------+ + + + [...] by utility); | | | | | 164 (Removed/Completed by | | | | | utility) | | | +--------+ + + + | Wound | 08/29/13; 1548; penis; | 08/29/13 1548 by | 05/21/18 1643 by | | | excoriation; Instructed to inform | Babita Ochoa, | User Epic | | | healthcare sales representative and check twice | RN | | [...] +--------+ + + + | Urethr | 10/22/13; yes; indicated for | 10/22/13 0000 by [...] [place] | | | | | | [address] | | | | | | | [...] 11:49 | | | | | Starting Mon12/19/14 at 1149, | | AM PDT | | | | | Anesthesia Intra-op | | | | | | + +---------+ +------+------+------+ +---+---+ | | | +---+---+ + +-------+ +-------+---+---+ | propofol (DIPRIVAN) injection | Given | 12/20/19 | 50 mg | | | | Intravenous, PRN, Starting Mon | | 15 12:03 | | | [...]
--- OUTSIDE RECORDS SUMMARY | ~2019-06-19 | XMS | Encounter Summary ---
Demographics + + + | Address | [address] | | | [place] [address] | + + + | Home Phone [...] | [facility] | | | and Narenana | + + + | Organization | [facility] | | | and [...] [place] | | | | | [address] | | + + + + + Care Team Providers + +------+ + | Care Telemetry Rn Name | Role | Phone | + [...] | | | | OP [address] | [place], [place] | | | | | [place], [place] | [address] | | | | | [address] | | | | | | [phone] | | | +--------+ + + + [...] encounter Progress Notes Della Ren PT - 04[facility]03[facility]2015 11[facility] [address] [place] [address] Cancellation/No Show Date: 04/03/2015 Patient Information Patient Name: Martinez Abbasi II Date of : 1970 Age: 44 y.o. Reason for missed visit: pt called to cancel; father in the hospital Phone call placed: no Plan: Cont with POC Electronically signed by: Della Ren PT, 04/03/2015 11:02 Patient Name: Martinez Abbasi II/: 1970/ documented in this enc nter [...] [place] | | | | | | [id number] | | | | | | | | +--------+---------+ + + + documented as of this encounter Visit Diagnoses Not on filedocumented in this encounter"
--- OUTSIDE RECORDS SUMMARY | ~2019-06-19 | XMS | Encounter Summary ---
Demographics + + + | Address | [address] | | | [place] [address] | + + + | Home Phone [...] + + + | Author | and [facility] | | | and Narenana | + + + | Organization | and [facility] | | | and [...] [place] | | | | | [address] | | + + + + + Care Team Providers + +------+ + | Care Literary Agent Name | Role | Phone | + [...] + + | 05/14/ | Telephone | [facility] [place] | Chris Priest MD | Other | | 2014 | | OTOLARYNGOLOGY [address] | [address] [place] | | | | | [address] | [address] [place], | | | | | [place], [place] | [place] [address] | | | | | [address] | [phone] | | | | | [phone] | | | +--------+ + + + [...] [place] | | | | | | [address] | | | | | | | | +--------+---------+ + + + documented as of this encounter Visit Diagnoses Not on filedocumented in this encounter"
--- OUTSIDE RECORDS SUMMARY | ~2019-06-19 | XMS | Encounter Summary ---
Demographics + + + | Address | [address] | | | [place] [address] | + + + | Home Phone | | + + + | Preferred Language | Unknown | + + + | Marital Status | Single | + + + | Zoroastrian Affiliation | 1074 | + + + | Race | Unknown | + + + | Ethnic Group | Unknown | + + + Author + + + | Author | [facility] | | | and Narenana | + + + | Organization | [facility] | | | and [...] [place] | | | | | [address] | | + + + + + Care Team Providers + +------+ + | Care Pinsetter Mechanic Automatic Name | Role | Phone | [...] | | | | | [address] | | | | | | [place], [place] | | | | | | [address] | | | | | | [phone] | | | +--------+ + + + [...] [place] | | | | | | [address] | | | | | | | | +--------+---------+ + + + documented as of this encounter Visit Diagnoses Not on filedocumented in this encounter
--- OUTSIDE RECORDS SUMMARY | ~2019-06-19 | XMS | Encounter Summary ---
Demographics + + + | Address | [address] | | | [place] [address] | + + + | Home Phone | | + + + | Preferred Language | Unknown | + + + | Marital Status | Single | + + + | Baptist Affiliation | 1074 | + + + | Race | Unknown | + + + | Ethnic Group | Unknown | + + + Author + + + | Author | [facility] | | | and Narenana | + + + | Organization | [facility] | | | and [...] [place] | | | | | [address] | | + + + + + Care Team Providers + +------+ + | Care River Rafting Guide Name | Role | Phone | + [...] | | | | OP [address] | [place], [place] | | | | | [place], [place] | [address] | | | | | [address] | | | | | | [phone] | | | +--------+ + + + [...] Ren, PT - 03/03/2015 10:44 AM [facility] [address] [place] [address] Cancellation/No Show Date: 03/03/2015 Patient Information Patient Name: Martinez Abbasi II Date of : 1970 Age: 44 y.o. Reason for missed visit: pt called to cancel appt. Due to illness Phone call placed: no Plan: Cont with POC, will call to re-schedule Electronically signed by: Della Ren PT, 03/03/2015 10:44 Patient Name: Martinez Abbasi II/: 1970/ documented in this [facility] nter Plan of Treatment +--------+---------+ + + + | Date | Type | Specialty | Care Team | Description | +--------+---------+ + + + | 07/18/ | Office | Physical Medicine | Chris Priest, | | | 2019 | Visit | and Rehabilitation | MD [address] | | | | | | [place] | | | | | | [address] | | | | | | | | +--------+---------+ + + + documented as of this encounter Visit Diagnoses Not on filedocumented in this encounter"
--- OUTSIDE RECORDS SUMMARY | ~2019-06-19 | XMS | Encounter Summary ---
Demographics + + + | Address | [address] | | | [place] [address] | + + + | Home Phone | | + + + | Preferred Language | Unknown | + + + | Marital Status | Single | + + + | Synagogue Affiliation | 1074 | + + + | Race | Unknown | + + + | Ethnic Group | Unknown | + + + Author + + + | Author | [facility] | | | and Narenana | + + + | Organization | [facility] | [...] [place] | | | | | [address] | | + + + + + Care Team Providers + +------+ + | Care Social Worker Name | Role | Phone | + +------+ + | Edwar Wilhelm PA-C | PCP | | + +------+ + Encounter Details +--------+ + + + + | Date | Type | Department | Care Team | Description | +--------+ + + + + | 07/09/ | Hospital | [facility] | Johnny Rosales, | | | 2013 | Encounter | MED CTR ACUTE | PT [address] | | | | | PHYSICAL THERAPY | [place], [place] | | | | | [address] [place] | [address] | | | | | [place] [address] | | | | | | [phone] | | | +--------+ + + + [...] 0 | 01/24/20 | | | (MYCOSTATIN) [id number] | | | | 14 | | [...] [place] | | | | | | [address] | | | | | | | | +--------+---------+ + + + documented as of this encounter Visit Diagnoses Not on filedocumented in this encounter"
--- OUTSIDE RECORDS SUMMARY | ~2019-06-19 | XMS | Encounter Summary ---
Demographics + + + | Address | [address] | | | [place] [address] | + + + | Home Phone [...] Author | [facility] | | | and [place]renana | + + + | Organization | [facility] | | | and [place] [...] [place] | | | | | [address] | | + + + + + Care Team Providers + +------+ + | Care Manager Food Beverage Name | Role | Phone | + [...] | | | [address] [place] | [place] [address] | | | | | [place] [address] | | | | | | [phone] | | | +--------+ + + + [...] [place] | | | | | | [address] | | | | | | | [...]
--- OUTSIDE RECORDS SUMMARY | ~2019-06-19 | XMS | Encounter Summary ---
Demographics + + + | Address | [address] | | | [place] [address] | + + + | Home Phone [...] Author | [facility] | | | and Narenana | + + + | Organization | [facility] | | | [...] [place] | | | | | [address] | | + + + + + Care Team Providers + +------+ + | Care Supervisor Logging Name | Role | Phone | + [...] | | | | OP [address] | [place], [place] | | | | | [place], [place] | [address] | | | | | [address] | | | | | | [phone] | | | +--------+ + + + [...] encounter Progress Notes Della Ren PT - 04/13/2015 1:20 PM [facility] OP [address] [facility] [address] Cancellation Date: 04/13/2015 Patient Information Patient Name: [...] [place] | | | | | | [address] | | | | | | | | +--------+---------+ + + + documented as of this encounter Visit Diagnoses Not on filedocumented in this encounter"
--- OUTSIDE RECORDS SUMMARY | ~2019-06-19 | XMS | Encounter Summary ---
Demographics + + + | Address | [address] | | | [place] [address] | + + + | Home Phone [...] | Author | [facility] | | | and Narenana | + + + | Organization | [facility] | | | and [...] [place] | | | | | [address] | | + + + + + Care Team Providers + +------+ + | Care Nail Maker Name | Role | Phone | [...] | | | | OP [address] | [place], [place] | | | | | [place], [place] | [address] | | | | | [address] | | | | | | [phone] | | | +--------+ + + + [...] Tori Luis, PT - 12/22/2015 4:09 PM FALGUNII spoke to Kendall at [facility] who reporte d that they received [...] Visit | and Rehabilitation | MD [address] | | | | | | [place] | | | | | | [address] | | | | | | | [...]
--- OUTSIDE RECORDS SUMMARY | ~2019-06-19 | XMS | Encounter Summary ---
Demographics + + + | Address | [address] | | | [place] [address] | + + + | Home Phone [...] | Author | [facility] | | | and [place] | + + + | Organization | [facility] | | | and [place] | [...] [place] | | | | | [address] | | + + + + + Care Team Providers + +------+ + | Care Yeast Supervisor Name | Role | Phone | [...] ANAIS | | | | n | ([facility]) | [address] | [address] | | | | | Abdominal | [place], | [place], [place] | | | | | spasms | [place] [address] | [address] Phone: | | | | | Muscle spasm | Phone: | [phone] | | | | | of both | [phone] | Fax: | | | | | lower legs | Fax: | [phone] | | | | | Neurogenic | [phone] | | | | | | bladder [...] + + | 06/14/ | Office | [facility] | Chris Priest, | Quadriplegia (HCC) | | 2017 | Visit | PHYSIATRY [address] | MD [address] | (Primary Dx); | | | | [address] | [place] | Abdominal spasms; | | | | [place] | [address] | Muscle spasm of both | | | | [address] | | lower legs; | | | | [phone] | | Neurogenic bladder; | | | [...] encounter Patient Instructions Patient Instructions Dia Loza, Certification Engineer - 06/14/2016 5:02 PM PDTContin ue with [...] today in follow-up after consultation at pain [facility], physical therapy . Martinez Abbasi II [...] baclofen is n ow being managed through [email or web address]. Martinez Abbasi II reports that he has increased function in his arms and hands. With yash nuation of physical therapies. He reports that he can now alterations manager objects in his right hand. Martinez Abbasi [...] Martinez Abbasi II denies skin iritation. Martinez Abbasi II also reports he is not curr [...] to the cervical region. He has tenodesis alterations manager in both hands. He has 4+/5 wrist [...] Martinez Abbasi II has pain contract through [facility] and is advised to continue care [...] MD (.) ELECTRONICALLY SIGNED BY: Dia Loza, Wharf Worker, 06/14/2016 16:58 I Ashley Ortiz am personally [...] [place] | | | | | | [address] | | | | | | | [...]
--- OUTSIDE RECORDS SUMMARY | ~2019-06-19 | XMS | Encounter Summary ---
Demographics + + + | Address | [address] | | | [place] [address] | + + + | Home Phone | | + + + | Preferred Language | Unknown | + + + | Marital Status | Single | + + + | Shinto Affiliation | 1074 | + + + | Race | Unknown | + + + | Ethnic Group | Unknown | + + + Author + + + | Author | [facility] | | | and [place]renana | + + + | Organization | [facility] | | | and [place] [...] [place] | | | | | [address] | | + + + + + Care Team Providers + +------+ + | Care Brazer Production Line Name | Role | Phone | + [...] + + | 11/09/ | Emergency | [facility] | Herman Troy, | Cephalgia (Primary | | 2013 | | MED CTR EMERGENCY | MD [address] | Dx); Constipation; | | | | CENTER [address] | [facility] [place] | Urinary tract | | | | [place] | [place] [address] | infection; Autonomic | | | | [address] | [phone] | dysreflexia; | | | | [phone] | | Quadriplegia (HCC); | | | [...] through Care Everywhere.BLADDER INFECTI ON, MALE (ADULT) (SURINAMESE)HEADACHE, UNSPECIFIED (SURINAMESE)DEHYDRATION (ADULT) (SURINAMESE)garry levi in this encounter Medications at Time [...] 0 | 03/22/19 | | | (MYCOSTATIN) [id number] | | | | 14 | | [...] PASTOR | | | | | | [address] | | | | | | | [...] + | [facility] | [address] | [place] | [phone] | | [facility] | | [address] | | | - LABORATORY | | | | + + + + + | [facility] | [address] | [place] | | | [facility] | | [address], [facility] | | | - LABORATORY [...] | | | | StaphylococcusComment: | | [facility] | | | | Probable contaminantNo | | MEDICAL | | | | further work-up to | | CENTER - | | | | follow. | | LABORATORY | | + + + + + + | Gram Stain | Gram positive cocci in | | [facility] | | | Result | tetrads and | | [facility] | | | | clustersComment: 1 of [...] [address] | [place] | [phone] | | [facility] | | [address] | | | - LABORATORY | | | | + + + + + | [facility] | [address] | [place], [place] | | | [facility] | | [address], [facility] | | | - LABORATORY [...] + | [facility] | [address] | [place] | [phone] | | [facility] | | [address] | | | - LABORATORY | | | | + + + + + | [facility] | [address] | [place], [place] | | | [facility] | | [address], [facility] | | | - LABORATORY [...] [address] | [place] | [phone] | | [facility] | | [address] | | | - LABORATORY | | | | + + + + + | [facility] | [address] | [place] | | | [facility] | | [address], [facility] | | | - LABORATORY [...] | | | FILTRATION | mL/min/1.73m2 | [facility] | | | MALIAN | RATE,ESTIMATED | | MEDICAL | | | | mL/min/1.81g3Qjqc than | | CENTER - | | [...] [facility] | | | | | | [facility] | | | | [...] [address] | [place] | [phone] | | [facility] | | [address] | | | - LABORATORY | | | | + + + + + | [facility] | [address] | [place] | | | [facility] | | [address], [facility] | | | - LABORATORY [...] + | [facility] | [address] | [place] | [phone] | | [facility] | | [address] | | | - LABORATORY | | | | + + + + + | [facility] | [address] | [place], [place] | | | [facility] | | [address] | | | - [...] + | [facility] | [address] | [place] | [phone] | | [facility] | | [address] | | | - LABORATORY | | | | + + + + + | [facility] | [address] | [place], [place] | | | [facility] | | [address] | | | - [...] - 1.030 | [facility] | | | [place], | | | [facility] | | [...] + + | Performing | Address | City/[facility]/Zipcode | Phone Number | | Organization | | | | + + + + + | [facility] | [address] | [place] | [phone] | | [facility] | | [address] | | | - LABORATORY | | | | + + + + + | [facility] | [address] | [place] | | | [facility] | | [address], [facility] | | | - LABORATORY [...] + | MISCELLANEOUS LAB | | | [phone] | + +---------+ + + | MISCELANIOUS LAB | | | [phone] | + +---------+ + + documented in [...]
--- OUTSIDE RECORDS SUMMARY | ~2019-06-19 | XMS | Encounter Summary ---
Demographics + + + | Address | [address] | | | [place] [address] | + + + | Home Phone [...] + | Author | [facility] | | | and [place] | + + + | Organization | [facility] | | | and [...] [place] | | | | | [address] | | + + + + + Care Team Providers + +------+ + | Care Epic Beacon Analyst Name | Role | Phone | [...] | | | | | Procedures | [address] | [address] | | | | | 10/21 PEND | [place], | [address] [place] | | | | | [place] | [place] [address] | [place], [place] | | | | | | Phone: | [address] | | | | | | [phone] | Phone: | | | | | | Fax: | [phone] | | | | | | [phone] | Fax: | | | | | | | [phone] | +--------+ + + + + + Encounter Details +--------+---------+ + + + | Date | Type | Department | Care Team | Description | +--------+---------+ + + + | 12/08/ | Office | [facility] | Jonathan Avendñao MD | Dysphagia (Primary | | 2015 | Visit | GASTROENTEROLOGY | [address] | Dx); RUQ pain; | | | | [address] [facility] | [place], [place] | Constipation, | | | | [address] [place], [place] | [address] | unspecified | | | | [address] | [phone] | constipation type | | | | [phone] | | | +--------+---------+ + + + [...] in this enc ounter Plan of Treatment +--------+---------+ + + + | Date | Type | Specialty | Care Team | Description | +--------+---------+ + + + | 07/18/ | Office | Physical Medicine | Chris Priest, | | | 2019 | Visit | and Rehabilitation | [address] | | | | | | [place] | | | | | | [address] | | | | | | | [...]
--- OUTSIDE RECORDS SUMMARY | ~2019-06-19 | XMS | Encounter Summary ---
Demographics + + + | Address | [address] | | | [place] [address] | + + + | Home Phone [...] Author | [facility] | | | and Narenana | + + + | Organization | [facility] | | [...] [place] | | | | | [address] | | + + + + + Care Team Providers + +------+ + | Care Real Estate Officer Name | Role | Phone | [...] Rehabilitatio | quadriplegia | [address] | | | | n | at C5-[address] | [address] | [place], | | | | | level (HCC) | [place], | [place] [address] | | | | | Impaired | [place] [address] | Phone: | | | | | mobility and | Phone: | [phone] | | | | | ADLs | [phone] | Fax: | | | | | Procedures | Fax: | [phone] | | | | | pt eval | [phone] | | +--------+ + + + + + Encounter Details +--------+---------+ + + + | Date | Type | Department | Care Team | Description | +--------+---------+ + + + | 06/17/ | Office | [facility] | Chris Priest, | Impaired mobility | | 2016 | Visit | MED CTR THERAPY PT | MD [address] | and activities of | | | | OP [address] | [place] | daily living | | | | [place] | [address] | (Primary Dx); | | | | [address] | | Impaired functional | | | | [phone] | Tori Luis, PT | mobility, balance, | | | | | [address] | gait, and endurance; | | | | | [place] | Quadriplegia, | | | | | [address] | C5-C7, incomplete | | | | | | ([facility]); Posture | | | | | Igor Monaco, | imbalance; Neck | | | | | Chemical Processing Technician | pain; Bilateral | | | | [...] documented as of this encounter Progress Notes Corp[facility] ChristiTori Radha, PT - 06/18/2015 5:22 PM PDTFormatting of this note might be different fro m the original. [facility] CTR THERAPY PT OP [address] [place] [address] Physical Therapy Daily Treatment Note Date: 06/18/2015 [...] Rehab Precautions Office Visit from 02/23/2015 in [facility] CTR THERAPY PT OP Rehab Precautions Precautions Spinal, Cervical Rehab Learning Style Office Visit from 02/23/2015 in [facility] CTR THERAPY PT OP Learning [...] [place] | | | | | | [address] | | | | | | | [...]
--- OUTSIDE RECORDS SUMMARY | ~2019-06-19 | XMS | Encounter Summary ---
Demographics + + + | Address | [address] | | | [place] [address] | + + + | Home Phone [...] Author | [facility] | | | and [place] | + + + | Organization | [facility] | [...] [place] | | | | | [address] | | + + + + + Care Team Providers + +------+ + | Care Forms Builder Name | Role | Phone | [...] + + | 10/29/ | Office | [facility] | Chris Priest, | Quadriplegia, C5-C7 | | 2013 | Visit | PHYSIATRY [address] | MD [address] | incomplete (HCC) | | | | [address] | [place] | (Primary Dx); | | | | [place] | [address] | Pressure ulcer, | | | | [address] | | buttock, left, | | | | [phone] | | unstageable (HCC); | | | [...] office note has been dictated. Job ID# [id number] signed by Chris Priest MD at 10/29/2013 2:26 PM PDTLauren Troy RN - 10/29/2013 1:34 PM PDTPatient states mild soreness from PT, but no pain. Patient st ates intermittent spasms. P M Chris Ware MD - 10/29/2013 12:00 AM PDT PHYSICAL MEDICINE AND REHAB [address] [place] [id number] FAX: [phone] OFFICE VISIT PHYSICAL MEDICINE REHABILITATION PROGRESS NOTE [...] jones has been seen by urologist in [facility]. He indicates they are planning to place [...] Jr, MD JACKIE / CABRERA JOB #: [id number] cc: JANIE Perez-C documented in this encounter [...] [place] | | | | | | [address] | | | | | | | [...]
--- OUTSIDE RECORDS SUMMARY | ~2019-06-19 | XMS | Encounter Summary ---
Demographics + + + | Address | [address] | | | [place] [address] | + + + | Home Phone [...] | Author | [facility] | | | and Narenana | + + + | Organization | [facility] | | | [...] [place] | | | | | [address] | | + + + + + Care Team Providers + +------+ + | Care Candy Cutter Machine Name | Role | Phone | + [...] + | 08/29/ | Emergency | [facility] | Mikal Dillard, | Urinary catheter | | 2013 | | MED CTR EMERGENCY | [place] [address] | change required | | | | CENTER [address] | [place] | (Primary Dx) | | | | [place] | [address] | | | | | [address] | | | | | | [phone] | | | +--------+ + + + [...] cannot be sent through Care Everywhere.FLOYD ABAD, CARE (CAYMAN ISLANDER)documented in this encounter Medications at Time of [...] 0 | 03/22/19 | | | (MYCOSTATIN) [id number] | | | | 14 | | [...] [place] | | | | | | [address] | | | | | | | | +--------+---------+ + + + documented as of this encounter Visit Diagnoses + + | Diagnosis | + + | Urinary catheter change required - Primary Fitting and adjustment of urinary device | + + documented in this encounter
--- OUTSIDE RECORDS SUMMARY | ~2019-06-19 | XMS | Encounter Summary ---
Demographics + + + | Address | [address] | | | [place] [address] | + + + | Home Phone [...] + | Author | [facility] | | | and Narenana | + + + | Organization | [facility] | | | and [place] | [...] [place] | | | | | [address] | | + + + + + Care Team Providers + +------+ + | Care Disaster Or Damage Control Specialist Name | Role | Phone | [...] | | | | function | | [place], | | | | | [place]astro[place] | | [place] [address] | | | | | geal reflux | | Phone: | | | | | disease | | [phone] | | | | | without | | Fax: | | | | | esophagitis | | [phone] | | | | | Abdominal | [...] | | | | | | | [place] | | | | | | | [...] + + | 12/19/ | Hospital | [facility] | Jonathan Avendaño MD | Dysphagia (Primary | | 2015 | Encounter | MED CTR MP INTRA OP | [address] | Dx); | | | | [address] | [place], [place] | Gastroesophageal | | | | [place], [place] | [address] | reflux disease | | | | [address] | [phone] | without esophagitis | | | | [phone] | | | +--------+ + + + [...] the physician who did your procedure at [phone] if you have any questions or experience any of the following: ? Increasing abdominal pain, nausea, or vomiting. ? Chills and fever over 101F. ? New abdominal swelling or bloating. ? Signs of rectal bleeding (black or red stool). If you cannot get a hold of your physician, then call the [facility] [phone] . If necessary, report to the Emergency Department at [facility]. Quit smoking: If you smoke or [...] 0 | 03/22/19 | | | (MYCOSTATIN) [id number] | | | | 14 | | [...] [place] | | | | | | [address] | | | | | | | [...] 12/19/2014 | PROVATION | | 11:46 AMMRN: [id number] #: [id number] of : | | | 1970Admit Type: AmbulatoryAge: 44[facility]Gender: MaleNote | | | Status: FinalizedAttending MD: MARYSE Merinorocedure: | | | Upper GI endoscopyIndications: Dyspepsia, Dysphagia, | | | Suspected esophageal reflux, NauseaProviders: Jonathan Kang | | | MD Jarocho, Shana Love RN, Karie Vasquez | | | Sridhar, Kitchen Steward, Blane Tompkins MD (Anesthesia | | | [...] the | | | anesthesiologist and the implementation technician in the pre-procedure area in the [...] Scope In: 11:58:14 AMScope Out: 12:04:18 PM [place] | | | [facility], [place] [address] | | | [phone] | | | - Regular diet. | [...] |Scope Out: 12:04:18 PM | | | Merged [facility], [facility] [place], [place] | | | [address] | | + + -+ + +---------+ [...] for | | | increased epithelial eosinophils. JVR:[facility]:C2NR GROSS | | | [...] cm. All | | | into (C1). yyt:JVR:[facility] PERFORMING LABORATORY: Tissue processing | | | and slide preparation were performed by [facility], [facility] [address] | | | [facility], [address], [place] [address] (Operations Examiner: Krishna | | | Norma Miranda CLIA#: [id number]). Professional interpretation was | | | performed by [facility], [facility]erged With [facility] | | | Branch, [address] [facility], [place] [address] (Operations Examiner: | | | Krishna Miranda M.D.; CLIA#: [id number]). Diagnostician: Krishna | | | Allan Miranda [...]
--- OUTSIDE RECORDS SUMMARY | ~2019-06-19 | XMS | Encounter Summary ---
Demographics + + + | Address | [address] | | | [place] [address] | + + + | Home Phone [...] + + + | Author | [facility] | | | and Narenana | + + + | Organization | [facility] | | | and [...] [place] | | | | | [address] | | + + + + + Care Team Providers + +------+ + | Care Household Personal Assistant Name | Role | Phone | [...] + + | 04/17/ | Emergency | [facility] | [place] | Autonomic | | 2015 | | MED CTR EMERGENCY | Eliu Garcia MD [address] | dysreflexia (Primary | | | | CENTER [address] | [address] [place] | Dx); Complication, | | | | [place], [place] | [place] [address] | suprapubic catheter | | | | [address] | [phone] | obstruction, initial | | | | [phone] | | encounter (HCC) | +--------+ + [...] 0 | 03/22/19 | | | (MYCOSTATIN) [id number] | | | | 14 | | [...] [place] | | | | | | [address] | | | | | | | | +--------+---------+ + + + documented as of this encounter Visit Diagnoses + + | Diagnosis | + + | Autonomic dysreflexia - Primary | + + | Complication, suprapubic catheter obstruction, initial encounter (HCC) | + + documented in this encounter"
--- OUTSIDE RECORDS SUMMARY | ~2019-06-19 | XMS | Encounter Summary ---
Demographics + + + | Address | [address] | | | [place] [address] | + + + | Home Phone [...] Author | [facility] | | | and Narenana | + + + | Organization | [facility] [...] [address] | | | | | [place] | | | | | [address] | | + + + + + Care Team Providers + +------+ + | Care Hotel Yardperson Name | Role | Phone | + [...] Rehabilitatio | quadriplegia | [address] | [place] | | | | n | at C5-[address] | [address] | [place], | | | | | level (HCC) | [place], | [place] [address] | | | | | Impaired | [place] [address] | Phone: | | | | | mobility and | Phone: | [phone] | | | | | ADLs | [phone] | Fax: | | | | | Procedures | Fax: | [phone] | | | | | pt eval | [phone] | | +--------+ + + + + + Encounter Details +--------+---------+ + + + | Date | Type | Department | Care Team | Description | +--------+---------+ + + + | 07/01/ | Office | [facility] | Chris Priest, | Impaired mobility | | 2016 | Visit | MED CTR THERAPY PT | MD [address] | and activities of | | | | OP [address] | [place] | daily living | | | | [place] | [address] | (Primary Dx); | | | | [address] | | Impaired functional | | | | [phone] | Tori Luis, PT | mobility, balance, | | | | | [address] | gait, and endurance; | | | | | [place] | Quadriplegia, | | | | | [address] | C5-C7, incomplete | | | | | | ([facility]); Posture | | | | | Igor Monaco, | imbalance; Neck | | | | | Engine Service Repairer | pain; Bilateral | | | | [...] encounter Progress Notes Tori Luis PT - 07/02/2015 5:03 PM PDTFormatting of this note might be different fro m the original. [facility] CTR THERAPY PT OP [address] [place] [address] Physical Therapy Daily Treatment Note Date: 07/02/2015 [...] Rehab Precautions Office Visit from 02/23/2015 in [facility] CTR THERAPY PT OP Rehab Precautions Precautions Spinal, Cervical Rehab Learning Style Office Visit from 02/23/2015 in [facility] CTR THERAPY PT OP Learning Style Patient's Optimum Learning Style listening, reading, observation, performance of task Start Time: 1610 Stop time: 1700 Duration: 50 minutes Timed Treatment Codes: 50 minutes # of PT Visits to Date: 7 Subjective: Call made to in home medical / [facility]- Letter of Medical Necessity sent to [facility] 06/30/15. I made a followup call today to verify receipt of fax. Talked to Kendall davis has not yet received fax, but will [...] Luis PT, 07/02/2015 17:03 Patient Name: Martinez Abbasi II/: 1970/ documented [...] [place] | | | | | | [address] | | | | | | | [...]
--- OUTSIDE RECORDS SUMMARY | ~2019-06-19 | XMS | Clinical Summary ---
Demographics + + + | Address | [address] | | | [place] [address] | + + + | Home Phone [...] | Author | [facility] | | | and Narenana | + + + | Organization | 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 | | Sensation intact [...] [place] | | | | | | [address] | | | | | | | [...] +--------+ +---------+--------+ | MEDICARE | MEDICA | [id number] | 07/29/19 | [phone] | | Medica | | | RE | | 16-Pre | 5 | | re | | | PART A | | sent | | | | | | AND B | | | | | | + +--------+ +--------+ +---------+--------+ | [employer] | MODA | [id number] | 02/17/ | [phone] | | Medica | | MEDICAID HMO | HEALTH | | 2014-P | 1 | | id | | | MDCD | | resent | | | | | | HMO OR | | | | | | + +--------+ +--------+ +---------+--------+ | [facility] | IHS | [id number] | | | | Indemn | | [...] | | al/Fam | | 1971 | [phone] | [place] [address] | | | adrián | | | 4 (Home) | | + +--------+ +--------+ + + Advance Directives + + + + + | Type | Date Recorded | Patient | Explanation | | | | Financial Accountant | | + + + + + | Power of | | | | | Media Planner | | | | + + + [...]
--- OUTSIDE RECORDS SUMMARY | ~2019-06-19 | XMS | Encounter Summary ---
Demographics + + + | Address | [address] | | | [place] [address] | + + + | Home Phone [...] | Author | [facility] | | | and Narenana | + + + | Organization | [facility] | [...] [place] | | | | | [address] | | + + + + + Care Team Providers + +------+ + | Care Director Of Photography Name | Role | Phone | + [...] Rehabilitatio | quadriplegia | [address] | [place] | | | | n | at C5-6 | [address] | [place], | | | | | level (HCC) | [place], | [place] [address] | | | | | Impaired | [place] [address] | Phone: | | | | | mobility and | Phone: | [phone] | | | | | ADLs | [phone] | Fax: | | | | | Procedures | Fax: | [phone] | | | | | pt eval | [phone] | | +--------+ + + + + + Encounter Details +--------+---------+ + + + | Date | Type | Department | Care Team | Description | +--------+---------+ + + + | 04/08/ | Office | [facility] | Chris Priest, | Impaired mobility | | 2016 | Visit | MED CTR THERAPY PT | MD [address] | and activities of | | | | OP [address] | [place] | daily living | | | | [place] | [address] | (Primary Dx); | | | | [address] | | Impaired functional | | | | [phone] | Della Ravi, PT | mobility, balance, | | | | | [address] | gait, and endurance; | | | | | [place] | Quadriplegia, | | | | | [address] | C5-C7, incomplete | | | | | | ([facility]); Posture | | | | | Igor Monaco, | imbalance; Neck | | | | | Learning Disabilities Teacher | pain; Bilateral | | | | [...] note might be different from mickey francis. [facility] CTR THERAPY PT OP [address] [address] Physical Therapy Daily Treatment Note Date: 04/08/2015 [...] Precautions Office Visit from 02/23/2015 in [facility] CTR THERAPY PT OP Rehab Precautions Precautions Spinal, Cervical Rehab Learning Style Office Visit from 02/23/2015 in [facility] CTR THERAPY PT OP Learning Style Patient's Optimum Learning Style listening, reading, observation, performance of task Start Time: 1550 Stop time: 1635 Duration: 45 minutes Timed Treatment Codes: 45 minutes # of PT Visits to Date: 4 Subjective: pt arrived with girlfriend aJel. Pt reports that he is having 4/10 [...] | | | | | [place] | | | | | | [address] | | | | | | | [...]
--- OUTSIDE RECORDS SUMMARY | ~2019-06-19 | XMS | Encounter Summary ---
Demographics + + + | Address | [address] | | | [place] [address] | + + + | Home Phone [...] Author | [facility] | | | and Narenana | + + + | Organization | [facility] | | | and [...] [place] | | | | | [address] | | + + + + + Care Team Providers + +------+ + | Care Telegraph Inspector Name | Role | Phone | [...] PHYSIATRY [address] | MD [address] | | | | | [address] | [place], [place] | | | | | [place], [place] | [address] | | | | | [address] | | | | | | [phone] | | | +--------+ + + + [...] [place] | | | | | | [address] | | | | | | | | +--------+---------+ + + + documented as of this encounter Visit Diagnoses Not on filedocumented in this encounter"
--- OUTSIDE RECORDS SUMMARY | ~2019-06-19 | XMS | Encounter Summary ---
Demographics + + + | Address | [address] | | | [place] [address] | + + + | Home Phone [...] | Author | [facility] | | | and Narenana | + + + | Organization | [facility] | | | [...] [place] | | | | | [address] | | + + + + + Care Team Providers + +------+ + | Care Heat Treat Worker Name | Role | Phone | [...] Rehabilitatio | quadriplegia | [address] | [place] | | | | n | at C5-6 | [address] | [place], | | | | | level (HCC) | [place], | [place] [address] | | | | | Impaired | [place] [address] | Phone: | | | | | mobility and | Phone: | [phone] | | | | | ADLs | [phone] | Fax: | | | | | Procedures | Fax: | [phone] | | | | | pt eval | [phone] | | +--------+ + + + + + Encounter Details +--------+---------+ + + + | Date | Type | Department | Care Team | Description | +--------+---------+ + + + | 06/17/ | Office | [facility] | Chris Priest, | Impaired mobility | | 2016 | Visit | MED CTR THERAPY PT | MD [address] | and activities of | | | | OP [address] | [place] | daily living | | | | [place] | [address] | (Primary Dx); | | | | [address] | | Impaired functional | | | | [phone] | Tori Luis, PT | mobility, balance, | | | | | [address] | gait, and endurance; | | | | | [place] | Quadriplegia, | | | | | [address] | C5-C7, incomplete | | | | | | ([facility]); Posture | | | | | Igor Monaco, | imbalance; Neck | | | | | Data Communications Technician | pain; Bilateral | | | [...] documented as of this encounter Progress Notes [place] PuenteTori Radha, PT - 06/18/2015 5:22 PM PDTFormatting of this note might be different fro m the original. [facility] CTR THERAPY PT OP [address] [address] Physical Therapy Daily Treatment Note Date: 06/18/2015 [...] Rehab Precautions Office Visit from 02/23/2015 in [facility] CTR THERAPY PT OP Rehab Precautions Precautions Spinal, Cervical Rehab Learning Style Office Visit from 02/23/2015 in [facility] CTR THERAPY PT OP Learning Style [...] [place] | | | | | | [address] | | | | | | | [...]
--- OUTSIDE RECORDS SUMMARY | ~2019-06-19 | XMS | Encounter Summary ---
Demographics + + + | Address | [address] | | | [place] [address] | + + + | Home Phone | | + + + | Preferred Language | Unknown | + + + | Marital Status | Single | + + + | Spiritism Affiliation | 1074 | + + + | Race | Unknown | + + + | Ethnic Group | Unknown | + + + Author + + + | Author | [facility] | | | and Narenana | + + + | Organization | [facility] [...] [place] | | | | | [address] | | + + + + + Care Team Providers + +------+ + | Care Fiscal Agent Name | Role | Phone | [...] | | | [address] [place] | [place] [address] | | | | | [place] [address] | | | | | | [phone] | | | +--------+ + + + [...] [place] | | | | | | [address] | | | | | | | [...]
--- OUTSIDE RECORDS SUMMARY | ~2019-06-19 | XMS | Encounter Summary ---
Demographics + + + | Address | [address] | | | [place] [address] | + + + | Home Phone [...] | [facility] | | | and Narenana | + + + | Organization | [facility] | | [...] [place] | | | | | [address] | | + + + + + Care Team Providers + +------+ + | Care Manager Quantitative Name | Role | Phone | + [...] | | | | OP [address] | [place], [place] | | | | | [place], [place] | [address] | | | | | [address] | | | | | | [phone] | | | +--------+ + + + [...] Ren PT - 02/05/2015 1:[facility] [address] [place] [address] Cancellation Date: 02/05/2015 Patient Information Patient Name: Martinez Abbasi II Date of : 1970 Age: 44 y.o. Reason for missed visit: pt called to cancel PT EVAL due to "having trouble moving" Phone call placed: no Plan: Front office to re-schedule. Electronically signed by: Della Ren PT, 02/05/2015 13:06 Patient Name: Martinez Abbasi II/: 1970/ [facility] Plan of Treatment +--------+---------+ + + + | Date | Type | Specialty | Care Team | Description | +--------+---------+ + + + | 07/18/ | Office | Physical Medicine | Chris Priest, | | | 2019 | Visit | and Rehabilitation | MD [address] | | | | | | [place] | | | | | | [address] | | | | | | | | +--------+---------+ + + + documented as of this encounter Visit Diagnoses Not on filedocumented in this encounter
--- OUTSIDE RECORDS SUMMARY | ~2019-06-19 | XMS | Encounter Summary ---
Demographics + + + | Address | [address] | | | [place] [address] | + + + | Home Phone [...] [place] | | | | | [address] | | + + + + + Care Team Providers + +------+ + | Care Cyber Security Engineer Name | Role | Phone | [...] + + | 11/24/ | Emergency | [facility] | [place] | Fibula fracture, | | 2014 | | MED CTR EMERGENCY | Eliu Garcia MD [address] | left, closed, | | | | CENTER [address] | [address] [place] | initial encounter | | | | [place] | [place] [place] [address] | (Primary Dx); Left | | | | [address] | [phone] | knee sprain, initial | | | | [phone] | | encounter | +--------+ + + [...] 0 | 03/22/19 | | | (MYCOSTATIN) 988350 | | | | 14 | | [...] | | | | | [place] | | | | | | [address] | | | | | | | [...]
--- OUTSIDE RECORDS SUMMARY | ~2019-06-19 | XMS | Encounter Summary ---
Demographics + + + | Address | [address] | | | [place] [address] | + + + | Home Phone [...] + | Author | [facility] | | | and Narenana | + + + | Organization | [facility] | [...] [place] | | | | | [address] | | + + + + + Care Team Providers + +------+ + | Care Cover Assembler Name | Role | Phone | [...] + | 08/29/ | Emergency | [facility] | Mikal Dillard, | Urinary catheter | | 2013 | | MED CTR EMERGENCY | [place] [address] | change required | | | | CENTER [address] | [place] | (Primary Dx) | | | | [place] | [address] | | | | | [address] | | | | | | [phone] | | | +--------+ + + + [...] be sent through Care Everywhere.FLOYD ABAD, CARE (FINNISH)documented in this encounter Medications at Time of [...] 0 | 03/22/19 | | | (MYCOSTATIN) [id number] | | | | 14 | | [...] [place] | | | | | | [address] | | | | | | | | +--------+---------+ + + + documented as of this encounter Visit Diagnoses + + | Diagnosis | + + | Urinary catheter change required - Primary Fitting and adjustment of urinary device | + + documented in this encounter
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
--- OUTSIDE RECORDS SUMMARY | ~2019-06-19 | XMS | Encounter Summary ---
Demographics + + + | Address | [address] | | | [place] [address] | + + + | Home Phone | | + + + | Preferred Language | Unknown | + + + | Marital Status | Single | + + + | Adventism Affiliation | 1074 | + + + | Race | Unknown | + + + | Ethnic Group | Unknown | + + + Author + + + | Author | [facility] | | | and Narenana | + + + | Organization | [facility] | | | and [place] [...] [place] | | | | | [address] | | + + + + + Care Team Providers + +------+ + | Care Product Development Actuary Name | Role | Phone | + +------+ + | Edwar Wilhelm PA-C | PCP | | + +------+ + Encounter Details +--------+ + + + + | Date | Type | Department | Care Team | Description | +--------+ + + + + | 03/02/ | Hospital | [facility] | Chase Montalvo, | | | 2017 | Encounter | [facility] | [address] | | | | | [address] | [address] | | | | | [place], [place] | [place] [address] | | | | | [address] | [phone] | | | | | [phone] | | | +--------+ + + + [...] 0 | 03/22/19 | | | (MYCOSTATIN) [id number] | | | | 14 | | [...] Date of Service: 03/02/16 1016 Status: Signed Dump Motorman: Steffany Wiseman RN (Registered Nurse) Patient discharged [...] [place] | | | | | | [address] | | | | | | | | +--------+---------+ + + + documented as of this encounter Visit Diagnoses Not on filedocumented in this encounter
--- OUTSIDE RECORDS SUMMARY | ~2019-06-19 | XMS | Encounter Summary ---
Demographics + + + | Address | [address] | | | [place] [address] | + + + | Home Phone [...] | Author | [facility] | | | and Narenana | + + + | Organization | [facility] | | | and [place] | [...] [place] | | | | | [address] | | + + + + + Care Team Providers + +------+ + | Care Electrical Maintenance Worker Name | Role | Phone | [...] | | | | | [address] | | | | | | [place], [place] | | | | | | [address] | | | | | | [phone] | | | +--------+ + + + [...] [place] | | | | | | [address] | | | | | | | | +--------+---------+ + + + documented as of this encounter Visit Diagnoses Not on filedocumented in this encounter
--- OUTSIDE RECORDS SUMMARY | ~2019-06-19 | XMS | Encounter Summary ---
Demographics + + + | Address | [address] | | | [place] [address] | + + + | Home Phone [...] | Author | [facility] | | | and Narenana | + + + | Organization | [facility] | | | and [...] [place] | | | | | [address] | | + + + + + Care Team Providers + +------+ + | Care Strip Tank Tender Name | Role | Phone [...] | | | | OP [address] | [place], [place] | | | | | [place], [place] | [address] | | | | | [address] | | | | | | [phone] | | | +--------+ + + + [...] encounter Progress Notes Della Ren, NADER - 04[facility]24[facility]2015 12[facility] OP [address] [facility] [address] Cancellation/No Show Date: 04/24/2015 Patient Information Patient Name: Martinez Abbasi II Date of : 1970 Age: 44 y.o. Reason for missed visit: pt called to cancel; no transportation Phone call placed: no Plan: Cont with POC Electronically signed by: Della Ren PT, 04/24/2015 12:55 Patient Name: Martinez Abbasi II/: 1970[facility] Plan of Treatment +--------+---------+ + + + | Date | Type | Specialty | Care Team | Description | +--------+---------+ + + + | 07/18/ | Office | Physical Medicine | Chris Priest, | | | 2019 | Visit | and Rehabilitation | MD [address] | | | | | | [place] | | | | | | [address] | | | | | | | | +--------+---------+ + + + documented as of this encounter Visit Diagnoses Not on filedocumented in this encounter"
--- OUTSIDE RECORDS SUMMARY | ~2019-06-19 | XMS | Encounter Summary ---
Demographics + + + | Address | [address] | | | [place] [address] | + + + | Home Phone [...] Author | [facility] | | | and Narenana | + + + | Organization | [facility] | | | and [...] [place] | | | | | [address] | | + + + + + Care Team Providers + +------+ + | Care Access Clerk Name | Role | Phone | [...] | | | | OP [address] | [place], [place] | | | | | [place], [place] | [address] | | | | | [address] | | | | | | [phone] | | | +--------+ + + + [...] documented as of this encounter Progress Notes Delal Ren PT - [facility]13[facility]2015 [facility] [address] [facility] [address] Cancellation Date: 04/13/2015 Patient Information Patient Name: [...] [place] | | | | | | [address] | | | | | | | | +--------+---------+ + + + documented as of this encounter Visit Diagnoses Not on filedocumented in this encounter"
--- OUTSIDE RECORDS SUMMARY | ~2019-06-19 | XMS | Encounter Summary ---
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 Job ID# [id number] signed by Chris Pirest MD at 08/19/2013 5:47 PM PDTJennifer Joel RN - 08/19/2013 4:39 PM PDTC/o bilat leg spasms/spasticity, currently taking 2 tablets bacl ofen tid, but stated that rx has not being helping. Waiting for insurance to approve PT. OT therapy will start next week. P M Chris Ware MD - 08/19/2013 12:00 AM PDT [facility] [address] [place] [id number] FAX: [phone] OFFICE VISIT PHYSICAL MEDICINE REHABILITATION PROGRESS NOTE [...] be seen in a location that has Stehpanie lift for full evaluation. It is my [...] health physical therapy as well. Mr. Abbasi change ds physical therapy. He definitely should have [...] lower extremities. Approximately 30 minutes was spent [id number] today with Mr. Abbasi, over half of which was spent formulating and discussing his medical treatment plan. Thank you for allowing me to be involved in the care of your patient. If you have any quest ions regarding the care of Mr. Abbasi, please do not hesitate to call. Chris Priest Jr, MD GEM / PAP JOB #: [id number] cc: Gautam Byrnestronically signed by Chris Priest MD at 08/20/2013 9:48 AM P DTdocumented in this encounter Plan of [...] [place] | | | | | | [address] | | | | | | | [...]
--- OUTSIDE RECORDS SUMMARY | ~2019-06-19 | XMS | Encounter Summary ---
Demographics + + + | Address | [address] | | | [place] [address] | + + + | Home Phone [...] Author | [facility] | | | and [place] | + + + | Organization | [facility] | | | and [place] [...] [place] | | | | | [address] | | + + + + + Care Team Providers + +------+ + | Care Technical Program Manager Name | Role | Phone | [...] | | Urinary | | [address] | | | | | tract | | [place], | | | | | infection | | [place] | | | | | Fever | | [address] | | | | | Hematuria, | | Phone: | | | | | gross | | [phone] | | | | | Quadriplegia | | Fax: | | | | | following | | [phone] | | | | | spinal cord [...] + + | 07/05/ | Hospital | [facility] | Herman [place], | Hematuria, gross | | 2013 - | Encounter | MED 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/ | | [place] [address] | [place] [address] | coagulopathy, | | 2013 | | [phone] | [phone] | initial encounter; | | | | | | Fever; Urinary tract | | | | | Owen Gauthier, | infection; | | | | | [address] | Quadriplegia | | | | | [place] | following spinal | | | | | [address] | cord injury ([facility]); | | | | | | Coumadin toxicity, | | | | | Chase Russ, | initial encounter; | | | | | [address] | Septic shock ([facility]); | | | | | [place] | Altered mental | | | | | [address] | status; Acute renal | | | | | | failure (ARF) ([facility]); | | | | | | [...] Priest MD. In 1 week. Contact information: [address] [place] [address] Discharge Medication List as of 07/09/2013 13:54 [...] or Severe Contraindications. Consult references such as [employer] for f urther information. Studies With Pending Results: None Greater than 30 minutes were spent on discharge and coordination of post-hospital care. Electronically signed by: Winston Ascencio MD, 07/09/2013 23:29 [facility] documented in this encounter Discharge Instructions [...] 0 | 03/22/19 | | | (MYCOSTATIN) [id number] | | | | 14 | | [...] PDT . HOSPITALIST PROGRESS NOTE on 07/08/2013 [facility] Pt. Name/Age/: Martinez Abbasi 42 y.o. 1970 Med. Record Number: [id number] Primary Care Physician: Edwar Wilhelm Date of [...] Dr. Salgado. Much better. Transfer to [facility] 07/08. Seems to be E. Coli. Sensitivities [...] -- No results found for this basename: PHART:3,PO2ART:3,LNY9JWU:3,Q6IUIFUP:3,BEART:[address] 168 hours No results found for this basename: CKTOTAL:3,TROPONINI:3,TROPONINT:3,CKMBINDEX:3,BNP:3 in the last 168 hours Lab 07/08/13 0449 07/07/13 0412 07/06/13 1525 APTT -- -- -- INR 1.11* 1.76* 1.78* PTT -- -- -- DDIMER -- -- -- No results found for this basename: POCGLU Micro results last 72hrs: Microbiology Results (72 hrs) Procedure Component Value Units Date/Time Culture, MRSA [[id number]] Collected:07/06/13 0146 Order Status:Completed Lab Status:Final result Updated:07/07/13 1036 Specimen Information:Respiratory / Nares Culture Negative for MRSA by chromogenic agar method Culture, Urine [[id number]] Collected:07/05/13 2113 Order Status:Completed Lab Status:Final result Updated:07/07/13 1203 Specimen Information:Urine Culture Result: <10,000 CFU/ml Mixed reinier (multiple morphologies present) Comment: Suggests contamination with urogenital or skin reinier. Culture, Blood [[id number]] Collected:07/05/132057 Order Status:Completed Lab Status:Final result Updated:07/07/13 1010 Specimen Information:Blood / Peripheral Blood Culture Gram Negative Rods Narrative: 4 of 4 bottles positive for gram negative bacilli. Please see [id number] for ID and sensitivity. Culture, Blood [[id number]] Collected:07/05/132057 Order Status:Completed Lab Status:Final result Updated:07/08/13 [...] 0601 acetaminophen, albuterol, ondansetron DVT Prophylaxis Coumadin [facility] Documentation I expect this patient will be hospitalized for greater than 2-midnights and expect the post -hospital plan to be discharge to home or to an adult foster home. Electronically signed by: Chase Russ MD, 07/08/2013 9:55 [facility] Portions of this chart may have been created with[employer] voice recognition software. Occas ional wrong-word or [...] DVT prevention. Starting lower than patient's ho ut regimen because he was supratherapeutic when admitted to the hospital. 2. Medication profile reviewed for potential drug-drug interactions 3. Labs in am: Hgb, Hct, INR 4. Pharmacist to follow daily Per P&T-approved Electronically signed by: Noelle Miranda, PHARMD 07/07/2013 8:37 Chase Wu MD - 07/07/2013 8:10 AM PDT . HOSPITALIST PROGRESS NOTE on 07/07/2013 [facility] Pt. Name/Age/: Martinez Abbasi 42 y.o. 1970 Med. Record Number: [id number] Primary Care Physician: Edwar Wilhelm Date of [...] -- No results found for this basename: PHART:3,PO2ART:3,BZF1JCR:3,A7FJJSPN:3,BEART:[address] 168 hours No results found for this basename: CKTOTAL:3,TROPONINI:3,TROPONINT:3,CKMBINDEX:3,BNP:3 in the last 168 hours Lab 07/07/1341107/06/13152407/06/13438 APTT -- -- -- INR 1.76* 1.78* 2.30* PTT -- -- -- DDIMER -- -- -- No results found for this basename: POCGLU Micro results last 72hrs: Microbiology Results (72 hrs) Procedure Component Value Units Date/Time Culture, MRSA [[id number]] Collected:07/06/13 014 Order Status:Sent Lab Status:In process Updated:07/06/13145 Specimen Information:Respiratory / Nares Culture, Urine [[id number]] Collected:07/05/132112 Order Status:Completed Lab Status:Preliminary result Updated:07/06/13 0845 Specimen Information:Urine Culture No growth to date Culture, Blood [[id number]] Collected:07/05/132057 Order Status:Completed Lab Status:Preliminary result Updated:07/06/132126 Specimen Information:Blood / Peripheral Blood Gram Stain Result Gram negative rods Comment: 3 (aer) of 4 bottles positive to date Gram Stain Result Gram negative rods Comment: 4 of 4 bottles positive 07-06-13 2100 Culture, Blood [[id number]] Collected:07/05/132057 Order Status:Completed Lab Status:Preliminary result Updated:07/06/13 [...] signed by: Chase Russ MD, 07/07/2013 8:10 [facility] Portions of this chart may have been created with[employer] voice recognition software. Occas ional wrong-word or [...] AM PDT HOSPITALIST PROGRESS NOTE on 07/06/2013 [facility] Pt. Name/Age/: Martinez Abbasi 42 y.o. 1970 Med. Record Number: [id number] Primary Care Physician: Edwar Wilhelm Date of [...] no mass, no rebou nd, no guarding ASSISTANT MANAGER BILINGUAL: Alert, oriented x 3. Diagnostic Studies: Radiology: [...] -- No results found for this basename: PHART:3,PO2ART:3,HDZ9BTF:3,I7NJXSWC:3,BEART:[address] 168 hours No results found for this basename: CKTOTAL:3,TROPONINI:3,TROPONINT:3,CKMBINDEX:3,BNP:3 in the last 168 hours Lab 07/06/1343807/05/132057 APTT -- -- INR 2.30* 3.28* PTT -- -- DDIMER -- -- No results found for this basename: POCGLU Micro results last 72hrs: Microbiology Results (72 hrs) Procedure Component Value Units Date/Time Culture, MRSA [[id number]] Collected:07/06/13145 Order Status:Sent Lab Status:In process Updated:07/06/13145 Specimen Information:Respiratory / Nares Culture, Urine [[id number]] Collected:07/05/132112 Order Status:Sent Lab Status:In process Updated:07/05/132143 Specimen Information:Urine Culture, Blood [[id number]] Collected:07/05/132057 Order Status:Sent Lab Status:In process Updated:07/05/132116 Specimen Information:Blood / Peripheral Blood Culture, Blood [[id number]] Collected:07/05/132057 Order Status:Sent Lab Status:In process Updated:07/05/132116 [...] signed by: Chase Russ MD, 07/06/2013 8:17 [facility] Portions of this chart may have been created with[employer] voice recognition software. Occas ional wrong-word or [...] | | | | | [place] | | | | | | [address] | | | | | | | [...] + | [facility] | [address] | [place], [place] | [phone] | | [facility] | | [address] | | | - LABORATORY | | | | + + + + + | [facility] | [address] | [place], [place] | | | [facility] | | [address] | | | - LABORATORY [...] mL/min/1.73m2 | [facility] | | | [place] | RATE,ESTIMATED | | MEDICAL | | | | mL/min/1.66w6Pjep than | | CENTER - | | [...] [address] | [place] | [phone] | | [facility] | | [address] | | | - LABORATORY | | | | + + + + + | [facility] | [address] | [place] | | | [facility] | | [address] | | | - LABORATORY [...] + | [facility] | [address] | [place], [place] | [phone] | | [facility] | | [address] | | | - LABORATORY | | | | + + + + + | [facility] | [address] | [place] | | | [facility] | | [address] | | | - LABORATORY [...] + | [facility] | [address] | [place] | [phone] | | [facility] | | [address] | | | - LABORATORY | | | | + + + + + | [facility] | [address] | [place], [place] | | | [facility] | | [address], [facility] | | | - [...] mL/min/1.73m2 | [facility] | | | [place] | RATE,ESTIMATED | | MEDICAL | | | | mL/min/1.61y6Mimq than | | CENTER - | | [...] + | [facility] | [address] | [place] | [phone] | | [facility] | | [address] | | | - LABORATORY | | | | + + + + + | [facility] | [address] | [place], [place] | | | [facility] | | [address] | | | - LABORATORY [...] + | [facility] | [address] | [place] | [phone] | | [facility] | | [address] | | | - LABORATORY | | | | + + + + + | [facility] | [address] | [place] | | | [facility] | | [address] | | | - LABORATORY [...] mL/min/1.73m2 | [facility] | | | [place] | RATE,ESTIMATED | | MEDICAL | | | | mL/min/1.21g0Ahxy than | | CENTER - | | [...] | ine Ratio | | | [facility] | | | | | | MEDICAL | | | | | | CENTER - | | | | | | LABORATORY | | + + + + + + + + | Specimen | + + | Blood | + + + + + + + | Performing | Address | City/State/[facility] | Phone Number | | Organization | | | | + + + + + | [facility] | [address] | [place] | [phone] | | [facility] | | [address] | | | - LABORATORY | | | | + + + + + | [facility] | [address] | [place] | | | [facility] | | [address], [facility] | | | - [...] [facility] | | | | | | [facility] | | | | | | MEDICAL | | | | | | CENTER - | | | | | | LABORATORY | | + + + + + + | RBC | 2.95 (L) | 4.30 - 5.70 | [facility] | | | | | M/uL | [facility] | | | | | [...] + | [facility] | [address] | [place], [place] | [phone] | | [facility] | | [address] | | | - LABORATORY | | | | + + + + + | [facility] | [address] | [place], [place] | | | [facility] | | [address], [facility] | | | - [...] [address] | [place] | [phone] | | [facility] | | [address] | | | - LABORATORY | | | | + + + + + | [facility] | [address] | [place] | | | [facility] | | [address], [facility] | | | - [...] + + + | UNIT # | [id number] | | [facility] | | | | [...] [place] | | | [facility] | | [address] | | | - BLOOD BANK | [...] + + + | UNIT # | [id number] | | [facility] | | | | [...] [place] | | | [facility] | | [address] | | | - BLOOD BANK | [...] + + + | UNIT # | [id number] | | [facility] | | | | [...] [place] | | | [facility] | | [address] | | | - BLOOD BANK | [...] + + + | UNIT # | [id number] | | [facility] | | | | [...] [place] | | | [facility] | | [address] | | | - BLOOD BANK | [...] [address] | [place] | [phone] | | [facility] | | [address] | | | - LABORATORY | | | | + + + + + | [facility] | [address] | [place] | | | [facility] | | [address], [facility] | | | - [...] | mL/min/1.73m2 | [facility] | | | [place] | RATE,ESTIMATED | | MEDICAL | | | | mL/min/1.14o4Swea than | | CENTER - | | [...] + | [facility] | [address] | [place] | [phone] | | [facility] | | [address] | | | - LABORATORY | | | | + + + + + | [facility] | [address] | [place] | | | [facility] | | [id number] [place] [address] | | | - LABORATORY | | [...] + | [facility] | [address] | [place], [place] | [phone] | | [facility] | | [address] | | | - LABORATORY | | | | + + + + + | [facility] | [address] | [place], [place] | | | [facility] | | [address], [facility] | | | - [...] [address] | [place] | [phone] | | [facility] | | [address] | | | - LABORATORY | | | | + + + + + | [facility] | [address] | [place] | | | [facility] | | [address], [facility] | | | - [...] [address] | [place] | [phone] | | [facility] | | [address] | | | - LABORATORY | | | | + + + + + | [facility] | [address] | [place] | | | [facility] | | [address], [facility] | | | - [...] + | [facility] | [address] | [place], [place] | [phone] | | [facility] | | [address] | | | - LABORATORY | | | | + + + + + | [facility] | [address] | [place] | | | [facility] | | [address] | | | - LABORATORY [...] - 1.030 | [facility] | | | [place], | | | [facility] | | [...] + | [facility] | [address] | [place] | [phone] | | [facility] | | [address] | | | - LABORATORY | | | | + + + + + | [facility] | [address] | [place], [place] | | | [facility] | | [address] | | | - LABORATORY [...] | | Time | | seconds | [facility] | | | | | [...] [address] | [place] | [phone] | | [facility] | | [address] | | | - LABORATORY | | | | + + + + + | [facility] | [address] | [place] | | | [facility] | | [address], [facility] | | | - [...] + | [facility] | [address] | [place] | [phone] | | [facility] | | [address] | | | - LABORATORY | | | | + + + + + | [facility] | [address] | [place], [place] | | | [facility] | | [address] | | | - LABORATORY [...] [address] | [place] | [phone] | | [facility] | | [address] | | | - LABORATORY | | | | + + + + + | [facility] | [address] | [place] | | | [facility] | | [address], [facility] | | | - [...] mL/min/1.73m2 | [facility] | | | [place] | RATE,ESTIMATED | | MEDICAL | | | | mL/min/1.77r5Emjj than | | CENTER - | | [...] | ine Ratio | | | [facility] | | | | | | [...] + | [facility] | [address] | [place] | [phone] | | [facility] | | [address] | | | - LABORATORY | | | | + + + + + | [facility] | [address] | [place] | | | [facility] | | [address], [facility] | | | - [...] | chromogenic agar method | | [facility] | | | | | | [...] + | [facility] | [address] | [place], [place] | [phone] | | [facility] | | [address] | | | - LABORATORY | | | | + + + + + | [facility] | [address] | [place], [place] | | | [facility] | | [address] [place] [address] | | | - LABORATORY | | [...] + | [facility] | [address] | [place], [place] | [phone] | | [facility] | | [address] | | | - LABORATORY | | | | + + + + + | [facility] | [address] | [place], [place] | | | [facility] | | [address], [facility] | | | - [...] [address] | [place] | [phone] | | [facility] | | [address] | | | - LABORATORY | | | | + + + + + | [facility] | [address] | [place], [place] | | | [facility] | | [address], [facility] | | | - [...] + | [facility] | [address] | [place] | [phone] | | [facility] | | [address] | | | - LABORATORY | | | | + + + + + | [facility] | [address] | [place], [place] | | | [facility] | | [address] [place] [address] | | | - LABORATORY | | [...] + | [facility] | [address] | [place], [place] | | | [facility] | | [address] | | | - BLOOD BANK | [...] + | MISCELLANEOUS LAB | | | [phone] | + +---------+ + + | MISCELANIOUS LAB | | | [phone] | + +---------+ + + Culture, Urine [...] + | [facility] | [address] | [place], [place] | [phone] | | [facility] | | [address] | | | - LABORATORY | | | | + + + + + | [facility] | [address] | [place] | | | [facility] | | [address] [place] [address] | | | - LABORATORY | | [...] - 1.030 | [facility] | | | [place], | | | [facility] | | [...] + | [facility] | [address] | [place] | [phone] | | [facility] | | [address] | | | - LABORATORY | | | | + + + + + | [facility] | [address] | [place], [place] | | | [facility] | | [address] | | | - LABORATORY [...] + | [facility] | [address] | [place], [place] | [phone] | | [facility] | | [address] | | | - LABORATORY | | | | + + + + + | [facility] | [address] | [place], [place] | | | [facility] | | [address] [place] [address] | | | - LABORATORY | | [...] + | [facility] | [address] | [place] | [phone] | | [facility] | | [address] | | | - LABORATORY | | | | + + + + + | [facility] | [address] | [place], [place] | | | [facility] | | [address] | | | - LABORATORY [...] bacilli. Please see | [facility] | | [id number] for ID and sensitivity. | [facility] | | | MEDICAL CENTER | | | - LABORATORY | + + + + + + + + | Performing | Address | City/State/Zipcode | Phone Number | | Organization | | | | + + + + + | [facility] | [address] | [place] | [phone] | | [facility] | | [address] | | | - LABORATORY | | | | + + + + + | [facility] | [address] | [place] | | | [facility] | | [id number] [place] [address] | | | - LABORATORY | | [...] 2.23 (H) | 0.60 - 1.30 | [facility] | | | | | mg/dL | [facility] | | | | | | MEDICAL | | | | | | CENTER - | | | | | | LABORATORY | | + + + + + + | eGFR if not | 32 (L)Comment: | >=60 | WEIR | | | | GLOMERULAR FILTRATION | mL/min/1.73m2 | [facility] | | | [place] | RATE,ESTIMATED | | MEDICAL | | | | mL/min/1.01o9Vxxk than | | CENTER - | | [...] + | [facility] | [address] | [place] | [phone] | | [facility] | | [address] | | | - LABORATORY | | | | + + + + + | [facility] | [address] | [place], [place] | | | [facility] | | [address] | | | - LABORATORY [...] [address] | [place] | [phone] | | [facility] | | [address] | | | - LABORATORY | | | | + + + + + | [facility] | [address] | [place] | | | [facility] | | [address], [facility] | | | - [...] + | [facility] | [address] | [place] | [phone] | | [facility] | | [address] | | | - LABORATORY | | | | + + + + + | [facility] | [address] | [place] | | | [facility] | | [address] | | | - LABORATORY [...]
--- OUTSIDE RECORDS SUMMARY | ~2019-06-19 | XMS | Encounter Summary ---
Demographics + + + | Address | [address] | | | [place] [address] | + + + | Home Phone [...] Author | [facility] | | | and [place] | + + + | Organization | 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 Job ID# [id number] signed by Chris Priest MD at 08/19/2013 5:47 PM PDTJennifer Joel RN - 08/19/2013 4:39 PM PDTC/o bilat leg spasms/spasticity, currently taking 2 tablets bacl ofen tid, but stated that rx has not being helping. Waiting for insurance to approve PT. OT therapy will start next week. P M Chris Ware MD - 08/19/2013 12:00 AM PDT [facility] [address] [place] [address] [id number] FAX: [phone] OFFICE VISIT PHYSICAL MEDICINE REHABILITATION PROGRESS NOTE [...] lower extremities. Approximately 30 minutes was spent [id number] today with Mr. Abbasi, over half of which was spent formulating and discussing his medical treatment plan. Thank you for allowing me to be involved in the care of your patient. If you have any quest ions regarding the care of Mr. Abbasi, please do not hesitate to call. Chris Priest Jr, MD GEM / PAP JOB #: [id number] cc: Gautam Byrnestronically signed by Chris Priest [...] [place] | | | | | | [address] | | | | | | | [...]
--- OUTSIDE RECORDS SUMMARY | ~2019-06-19 | XMS | Encounter Summary ---
Demographics + + + | Address | [address] | | | [place] [address] | + + + | Home Phone [...] | Located Within [facility] | | | and Narenana | + + + | Organization | Located Within [facility] | | | and [...] [place] | | | | | [address] | | + + + + + Care Team Providers + +------+ + | Care Slag Motor Operator Name | Role | Phone | [...] | | | | n | ([facility]LY [facility]) | [address] | [address] | | | | | Abdominal | [place], | [place] | | | | | spasms | [place] [address] | [address] Phone: | | | | | Muscle spasm | Phone: | [phone] | | | | | of both | [phone] | Fax: | | | | | lower legs | Fax: | [phone] | | | | | Neurogenic | [phone] | | | | | | bladder [...] + + | 09/15/ | Office | [facility] | Diomedes Zarate, | Tetraplegia (HCC) | | 2017 | Visit | PHYSIATRY [address] | [address] | (Primary Dx) | | | | [address] | [address] | | | | | [place] | [place] [address] | | | | | [address] | [phone] | | | | | [phone] | | | +--------+---------+ + + + [...] Medicine Consult Note Diomedes Zarate MD [address] [facility], [address] [place], [place] [address] FAX: CHIEF COMPLAINT: Chief Complaint Patient presents [...] never worked, was ordered by PT in [facility]. Uses transfers with transfer board, independently. [...] IS PARAPLEGIC; Surgeon: Jonathan Avendaño MD; [facility] CURRENT MEDICATIONS: Current Outpatient Prescriptions Medication Sig [...] pay for another on e. For reference [facility] has a wheelchair clinic where vendors are [...] PLAN: -Return to clinic before I leave [facility] in October, otherwise can follow-up with [...] Change the catheter using lidocaine jelly. Dr sen the bladder. 5. If no catheter is [...] [place] | | | | | | [address] | | | | | | | | +--------+---------+ + + + documented as of this encounter Visit Diagnoses + + | Diagnosis | + + | Tetraplegia (HCC) - Primary Quadriplegia, unspecified | + + documented in this encounter
--- OUTSIDE RECORDS SUMMARY | ~2019-06-19 | XMS | Encounter Summary ---
Demographics + + + | Address | [address] | | | [place] [address] | + + + | Home Phone [...] Author | [facility] | | | and Narenana | + + + | Organization | [facility] | | | and [...] [place] | | | | | [address] | | + + + + + Care Team Providers + +------+ + | Care Middleware Systems Architect Name | Role | Phone [...] Rehabilitatio | quadriplegia | [address] | | | | n | at C5-6 | [address] | [place], | | | | | level (HCC) | [place], | [place] [address] | | | | | Impaired | [place] [address] | Phone: | | | | | mobility and | Phone: | [phone] | | | | | ADLs | [phone] | Fax: | | | | | Procedures | Fax: | [phone] | | | | | pt eval | [phone] | | +--------+ + + + + + Encounter Details +--------+---------+ + + + | Date | Type | Department | Care Team | Description | +--------+---------+ + + + | 07/01/ | Office | [facility] | Chris Priest, | Impaired mobility | | 2016 | Visit | MED CTR THERAPY PT | MD [address] | and activities of | | | | OP [address] | [place] | daily living | | | | [place] | [address] | (Primary Dx); | | | | [address] | | Impaired functional | | | | [phone] | Tori Luis, PT | mobility, balance, | | | | | [address] | gait, and endurance; | | | | | [place] | Quadriplegia, | | | | | [address] | C5-C7, incomplete | | | | | | ([facility]); Posture | | | | | Igor Monaco, | imbalance; Neck | | | | | Manufacturing Engineering Technician | pain; Bilateral | | | [...] might be different fro m the original. [facility] CTR THERAPY PT OP [address] [address] Physical Therapy Daily Treatment Note Date: 07/02/2015 [...] Rehab Precautions Office Visit from 02/23/2015 in [facility] CTR THERAPY PT OP Rehab Precautions Precautions Spinal, Cervical Rehab Learning Style Office Visit from 02/23/2015 in [facility] CTR THERAPY PT OP Learning Style Patient's Optimum Learning Style listening, reading, observation, performance of task Start Time: 1610 Stop time: 1700 Duration: 50 minutes Timed Treatment Codes: 50 minutes # of PT Visits to Date: 7 Subjective: Call made to in home medical / [place]- Letter of Medical Necessity sent to [facility] 06/30/15. I made a followup call [...] [place] | | | | | | [address] | | | | | | | [...]
--- OUTSIDE RECORDS SUMMARY | ~2019-06-19 | XMS | Encounter Summary ---
Demographics + + + | Address | [address] | | | [place] [address] | + + + | Home Phone [...] Author | [facility] | | | and Narenana | + + + | Organization | [facility] | [...] [place] | | | | | [address] | | + + + + + Care Team Providers + +------+ + | Care Skin Care Instructor Name | Role | Phone | + +------+ + | Edwar Wilhelm PA-C | PCP | | + +------+ + Reason for Visit + + + | Reason | Comments | + + + | Referral (Follow up) | | + + + Encounter Details +--------+ + + + + | Date | Type | Department | Care Team | Description | +--------+ + + + + | 07/26/ | Telephone | [facility] | Chris Priest, | Referral (Follow up) | | 2013 | | PHYSIATRY [address] | [address] | | | | | [address] | [place] | | | | | [place], [place] | [address] | | | | | [address] | | | | | | [phone] | | | +--------+ + + + [...]
--- OUTSIDE RECORDS SUMMARY | ~2019-06-19 | XMS | Encounter Summary ---
Demographics + + + | Address | [address] | | | [place] [address] | + + + | Home Phone [...] Author | [facility] | | | and Narenana | + + + | Organization | [facility] | [...] [place] | | | | | [address] | | + + + + + Care Team Providers + +------+ + | Care Oracle Applications Developer Name | Role | Phone | [...] | | | | OP [address] | [place], [place] | | | | | [place], [place] | [address] | | | | | [address] | | | | | | [phone] | | | +--------+ + + + [...] Ren, NADER - 04/24/2015 12[facility] OP [address] [facility] [address] Cancellation/No Show Date: 04/24/2015 Patient Information Patient Name: Martinez Abbasi II Date of : 1970 Age: 44 y.o. Reason for missed visit: pt called to cancel; no transportation Phone call placed: no Plan: Cont with POC Electronically signed by: Della Ren PT, 04/24/2015 12:55 Patient Name: Martinez Abbasi II/: 1970[facility] Plan of Treatment +--------+---------+ + + + | Date | Type | Specialty | Care Team | Description | +--------+---------+ + + + | 07/18/ | Office | Physical Medicine | Chris Priest, | | | 2019 | Visit | and Rehabilitation | MD [address] | | | | | | [place] | | | | | | [address] | | | | | | | | +--------+---------+ + + + documented as of this encounter Visit Diagnoses Not on filedocumented in this encounter"
--- OUTSIDE RECORDS SUMMARY | ~2019-06-19 | XMS | Encounter Summary ---
Demographics + + + | Address | [address] | | | [place] [address] | + + + | Home Phone [...] | Author | [facility] | | | and Narenana | + + + | Organization | [facility] | | [...] [place] | | | | | [address] | | + + + + + Care Team Providers + +------+ + | Care Coal Chute Worker Name | Role | Phone | [...] Rehabilitatio | quadriplegia | [address] | [place] | | | | n | at C5-6 | [address] | [place], | | | | | level (HCC) | [place], | [place] [address] | | | | | Impaired | [place] [address] | Phone: | | | | | mobility and | Phone: | [phone] | | | | | ADLs | [phone] | Fax: | | | | | Procedures | Fax: | [phone] | | | | | pt eval | [phone] | | +--------+ + + + + + Encounter Details +--------+---------+ + + + | Date | Type | Department | Care Team | Description | +--------+---------+ + + + | 03/12/ | Office | [facility] | Chris Priest, | Impaired mobility | | 2016 | Visit | MED CTR THERAPY PT | MD [address] | and activities of | | | | OP [address] | [place] | daily living | | | | [place] | [address] | (Primary Dx); | | | | [address] | | Impaired functional | | | | [phone] | Della Ravi, PT | mobility, balance, | | | | | [address] | gait, and endurance; | | | | | [place] | Quadriplegia, | | | | | [address] | C5-C7, incomplete | | | | | | ([facility]); Posture | | | | | | [...] + documented as of this encounter Progress Della Tadeo, PT - 03/12/2015 3:51 PM PSTFormatting of this note might be different from mickey francis. [facility] CTR THERAPY PT OP [address] [place] [address] Physical Therapy Daily Treatment Note Date: 03/12/2015 [...] options for standing frames and trial of [facility] karmen ding frame. 3 person assist for safety. Pt [...] [place] | | | | | | [id number] | | | | | | | [...]
--- OUTSIDE RECORDS SUMMARY | ~2019-06-19 | XMS | Encounter Summary ---
Demographics + + + | Address | [address] | | | [place] [address] | + + + | Home Phone [...] | Author | [facility] | | | and Narenana | + + + | Organization | [facility] | | | and [place] [...] [place] | | | | | [address] | | + + + + + Care Team Providers + +------+ + | Care Simulation Analyst Name | Role | Phone | [...] PHYSIATRY [address] | MD [address] | | | | | [address] | [place], [place] | | | | | [place], [place] | [address] | | | | | [address] | | | | | | [phone] | | | +--------+ + + + [...] [place] | | | | | | [address] | | | | | | | | +--------+---------+ + + + documented as of this encounter Visit Diagnoses Not on filedocumented in this encounter"
--- OUTSIDE RECORDS SUMMARY | ~2019-06-19 | XMS | Encounter Summary ---
Demographics + + + | Address | [address] | | | [place] [address] | + + + | Home Phone [...] | Author | [facility] | | | and Narenana | + + + | Organization | [facility] | | | and [...] [place] | | | | | [address] | | + + + + + Care Team Providers + +------+ + | Care Wind Turbine Technician Name | Role | Phone | [...] [place] | | | | n | ([facility]) | [address] | [address] | | | | | Abdominal | [place], | [place] | | | | | spasms | [place] [address] | [address] Phone: | | | | | Muscle spasm | Phone: | [phone] | | | | | of both | [phone] | Fax: | | | | | lower legs | Fax: | [phone] | | | | | Neurogenic | [phone] | | | | | | bladder [...] + | 09/15/ | Office | [facility] | Diomedes Zarate, | Tetraplegia (HCC) | | 2017 | Visit | PHYSIATRY [address] | [address] | (Primary Dx) | | | | [address] | [address] | | | | | [place] | [place] [address] | | | | | [address] | [phone] | | | | | [phone] | | | +--------+---------+ + + + [...] Medicine Consult Note Diomedes Zarate MD [address] [facility], [address] [place], [place] [address] FAX: CHIEF COMPLAINT: Chief Complaint Patient presents [...] never worked, was ordered by PT in [facility]. Uses transfers with transfer board, independently. [...] IS PARAPLEGIC; Surgeon: Jonathan Avendaño MD; [facility] CURRENT MEDICATIONS: Current Outpatient Prescriptions Medication [...] PLAN: -Return to clinic before I leave [facility] in October, otherwise can follow-up with [...] [place] | | | | | | [address] | | | | | | | | +--------+---------+ + + + documented as of this encounter Visit Diagnoses + + | Diagnosis | + + | Tetraplegia (HCC) - Primary Quadriplegia, unspecified | + + documented in this encounter
--- OUTSIDE RECORDS SUMMARY | ~2019-06-19 | XMS | Encounter Summary ---
Demographics + + + | Address | [address] | | | [place] [address] | + + + | Home Phone [...] + + | Author | [facility] | | | and Narenana | + + + | Organization | [facility] | | [...] [place] | | | | | [address] | | + + + + + Care Team Providers + +------+ + | Care Rustic Fence Builder Name | Role | Phone | [...] | | | | function | | [place], | | | | | [place] | | [place] [address] | | | | | geal reflux | | Phone: | | | | | disease | | [phone] | | | | | without | | Fax: | | | | | esophagitis | | [phone] | | | | | Abdominal | [...] + + | 12/19/ | Anesthesia | [facility] | Blane Tompkins | | | 2015 | Event | MED CTR MP INTRA OP | MD Abdulkadir [address] | | | | | [address] | [facility] | | | | | [place] | [place] [address] | | | | | [address] | [phone] | | | | | [phone] | | | +--------+ + + + [...] | User Epic | | | healthcare receptionist and check twice | RN | | [...] [place] | | | | | | [address] | | | | | | | [...]
--- OUTSIDE RECORDS SUMMARY | ~2019-06-19 | XMS | Encounter Summary ---
Demographics + + + | Address | [address] | | | [place] [address] | + + + | Home Phone [...] Author | [facility] | | | and Narenana | + + + | Organization | [facility] | | | and [place] | [...] [place] | | | | | [address] | | + + + + + Care Team Providers + +------+ + | Care Special Needs Caregiver Name | Role | Phone | + [...] Rehabilitatio | quadriplegia | [address] | [address] | | | | n | at C5-6 | [address] | [place], | | | | | level (HCC) | [place], | [place] [address] | | | | | Impaired | [place] [address] | Phone: | | | | | mobility and | Phone: | [phone] | | | | | ADLs | [phone] | Fax: | | | | | Procedures | Fax: | [phone] | | | | | pt eval | [phone] | | +--------+ + + + + + Encounter Details +--------+---------+ + + + | Date | Type | Department | Care Team | Description | +--------+---------+ + + + | 03/24/ | Office | [facility] | Chris Priest, | Impaired mobility | | 2016 | Visit | MED CTR THERAPY PT | MD [address] | and activities of | | | | OP [address] | [place] | daily living | | | | [place] | [address] | (Primary Dx); | | | | [address] | | Impaired functional | | | | [phone] | Della Ravi, PT | mobility, balance, | | | | | [address] | gait, and endurance; | | | | | [place], [place] | Quadriplegia, | | | | | [address] | C5-C7, incomplete | | | | | | ([facility]); Posture | | | | | Claudia Bragg, | imbalance; Neck | | | | | CAR INSTALLATIONS SUPERVISOR | pain; Bilateral | | | | [...] this note might be different from mickey mccain original. [facility] CTR THERAPY PT OP [address] [place] [address] Physical Therapy Daily Treatment Note Date: 03/24/2015 [...] Learning Style Office Visit from 02/23/2015 in [facility] CTR THERAPY PT OP Learning Style [...] [place] | | | | | | [address] | | | | | | | [...]
--- OUTSIDE RECORDS SUMMARY | ~2019-06-19 | XMS | Encounter Summary ---
Demographics + + + | Address | [address] | | | [place] [address] | + + + | Home Phone [...] | [facility] | | | and Narenana | + + + | Organization | [facility] | | | and [...] [place] | | | | | [address] | | + + + + + Care Team Providers + +------+ + | Care Music Artist Name | Role | Phone | + [...] + + | 06/04/ | Emergency | [facility] | Eliu Herrera | UTI (urinary tract | | 2013 | | MED CTR EMERGENCY | Harjit Colorado MD | infection) due to | | | | CENTER [address] | [address] | urinary indwelling | | | | [place] | [place] | [place] catheter, | | | | [address] | [address] | initial encounter | | | | [phone] | | ([facility]) (Primary Dx); | | | | | | Cough; 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 | [address] | [place] | [phone] | | [facility] | | [address] | | | - LABORATORY | | | | + + + + + | [facility] | [address] | [place], [place] | | | [facility] | | [address], [facility] [...] - 1.030 | [facility] | | | [place], | | | [facility] | | [...] + | [address] | [address] | [place], [place] | [phone] | | [facility] | | [address] | | | - LABORATORY | | | | + + + + + | [address] [facility] | [address] | [place], [place] | | | [facility] | | [address], [facility] [...]
--- OUTSIDE RECORDS SUMMARY | ~2019-06-19 | XMS | Encounter Summary ---
Demographics + + + | Address | [address] | | | [place] [address] | + + + | Home Phone [...] | Author | [facility] | | | and Narenana | + + + | Organization | [facility] [...] [place] | | | | | [address] | | + + + + + Care Team Providers + +------+ + | Care Underwriting Sales Representative Name | Role | Phone [...] | | | | OP [address] | [place], [place] | | | | | [place], [place] | [address] | | | | | [address] | | | | | | [phone] | | | +--------+ + + + [...] Ren PT - 04/03/2015 11:02 AM [facility] [address] [place] [address] Cancellation/No Show Date: 04/03/2015 Patient Information Patient [...] [place] | | | | | | [address] | | | | | | | | +--------+---------+ + + + documented as of this encounter Visit Diagnoses Not on filedocumented in this encounter"
--- OUTSIDE RECORDS SUMMARY | ~2019-06-19 | XMS | Encounter Summary ---
Demographics + + + | Address | [address] | | | [place] [address] | + + + | Home Phone [...] + | Author | [facility] | | | and Narenana | + + + | Organization | [facility] | | | and [...] [place] | | | | | [address] | | + + + + + Care Team Providers + +------+ + | Care Road Supervisor Of Engines Name | Role | Phone | + [...] | | | upper | [address] | [place], | | | | | quadrant | [place] | [place] [address] | | | | | Dysphagia | [address] | Phone: | | | | | Gastroesopha | Phone: | [phone] | | | | | geal reflux | [phone] | Fax: | | | | | disease | Fax: | [phone] | | | | | without | [phone] | | | | | | esophagitis [...] | | | | | | | [place] | | | | | | | ESOPHAGOGAST | | | | | | | RODUODENOSCO | | | | | | | PY TRANSORAL | | | | | | | DIAGNOSTIC | | | | | | | [place] EDG | | | | | | | TRANSORAL | | | | | | | BIOPSY | | | | | | | SINGLE/MULTI | | | | | | | PLE [place] | | | | | | | [...] | [address] [place] | [place], [place] | (Primary Dx); | | | | [address] [place] | [address] | Dysphagia; | | | | [address] | [phone] | Gastroesophageal | | | | [phone] | | reflux disease | | | [...] RUQ pain, rule out hepatomegaly COMPARISON:None | [facility] | | FINDINGS: Liver:The liver is [...] | + + + + + | [facility] | [address] | [place] | [phone] | | [facility] | | [address] | | | - IMAGING | | [...]
--- OUTSIDE RECORDS SUMMARY | ~2019-06-19 | XMS | Encounter Summary ---
Demographics + + + | Address | [address] | | | [place] [address] | + + + | Home Phone [...] | Author | [facility] | | | and Narenana | + + + | Organization | [facility] | | | and [place] [...] [place] | | | | | [place] | | | | | [address] | | + + + + + Care Team Providers + +------+ + | Care Director Private Name | Role | Phone | + [...] | | | | OP [address] | [place], [place] | | | | | [place], [place] | [address] | | | | | [address] | | | | | | [phone] | | | +--------+ + + + [...] PM FALGUNII spoke to Kendall at [facility] who reporte d that they received [...] | and Rehabilitation | MD [address] | | | | | | [place] | | | | | | [address] | | | | | | | [...]
--- OUTSIDE RECORDS SUMMARY | ~2019-06-19 | XMS | Encounter Summary ---
Demographics + + + | Address | [address] | | | [place] [address] | + + + | Home Phone [...] + | Author | [facility] | | | and Narenana | + + + | Organization | [facility] | | | and [...] [place] | | | | | [address] | | + + + + + Care Team Providers + +------+ + | Care Technical Marketing Engineer Name | Role | Phone | [...] | | | | OP [address] | [place], [place] | | | | | [place], [place] | [address] | | | | | [address] | | | | | | [phone] | | | +--------+ + + + [...] Ren, PT - 05/06/2015 4:52 PM [facility] [address] [facility] [address] Cancellation Date: 05/06/2015 Patient Information Patient Name: [...] [place] | | | | | | [address] | | | | | | | | +--------+---------+ + + + documented as of this encounter Visit Diagnoses Not on filedocumented in this encounter"
--- OUTSIDE RECORDS SUMMARY | ~2019-06-19 | XMS | Encounter Summary ---
Demographics + + + | Address | [address] | | | [place] [address] | + + + | Home Phone [...] Author | [facility] | | | and Narenana | + + + | Organization | [facility] | | [...] [place] | | | | | [address] | | + + + + + Care Team Providers + +------+ + | Care Cold Roll Inspector Name | Role | Phone | [...] 2013 | | MED CTR EMERGENCY | [place] [address] | change required | | | | CENTER [address] | [place] | (Primary Dx) | | | | [place] | [address] | | | | | [address] | | | | | | [phone] | | | +--------+ + + + [...] cannot be sent through Care Everywhere.BARRIENTOS CATHETER, RAAD (CHILEAN)documented in this encounter Medications at Time of [...] 0 | 03/22/19 | | | (MYCOSTATIN) [id number] | | | | 14 | | [...] | | | | | [place] | | | | | | [address] | | | | | | | | +--------+---------+ + + + documented as of this encounter Visit Diagnoses + + | Diagnosis | + + | Catheter (urine) change required - Primary Fitting and adjustment of urinary device | + + documented in this encounter"
--- OUTSIDE RECORDS SUMMARY | ~2019-06-19 | XMS | Encounter Summary ---
Demographics + + + | Address | [address] | | | [place] [address] | + + + | Home Phone [...] + | Author | [facility] | | | and Narenana | + + + | Organization | [facility] | | | [...] [place] | | | | | [address] | | + + + + + Care Team Providers + +------+ + | Care Substation Electrician Name | Role | Phone | + +------+ + | Edwar Wilhelm PA-C | PCP | | + +------+ + Encounter Details +--------+ + + + + | Date | Type | Department | Care Team | Description | +--------+ + + + + | 12/22/ | Hospital | [facility] | Jonathan Avendaño MD | Abdominal pain, | | 2015 | Encounter | MED CTR ULTRASOUND | [address] | right upper quadrant | | | | [address] [place] | [place], [place] | | | | | [place], [place] | [address] | | | | | [address] | [phone] | | | | | [phone] | | | | | | | [...] 0 | 03/22/19 | | | (MYCOSTATIN) [id number] | | | | 14 | | [...] LONG | | | | | | [id number] | | | | | | | [...] rule out hepatomegaly COMPARISON:None | [facility] | | FINDINGS: Liver:The liver [...] [address] | [place] | [phone] | | [facility] | | [address] | | | - IMAGING | | | | + + + + + documented in this encounter Visit Diagnoses + + | Diagnosis | + + | Abdominal pain, right upper quadrant | + + documented in this encounter"
--- OUTSIDE RECORDS SUMMARY | ~2019-06-19 | XMS | Encounter Summary ---
Demographics + + + | Address | [address] | | | [place] [address] | + + + | Home Phone [...] | [facility] | | | and Narenana | + + + | Organization | [facility] | | | and [...] [place] | | | | | [address] | | + + + + + Care Team Providers + +------+ + | Care Broodmare Foreman Name | Role | Phone | + [...] Rehabilitatio | quadriplegia | [address] | | | | n | at C5-[address] | [address] | [place], | | | | | level (HCC) | [place], | [place] [address] | | | | | Impaired | [place] [address] | Phone: | | | | | mobility and | Phone: | [phone] | | | | | ADLs | [phone] | Fax: | | | | | Procedures | Fax: | [phone] | | | | | pt eval | [phone] | | +--------+ + + + + + Encounter Details +--------+---------+ + + + | Date | Type | Department | Care Team | Description | +--------+---------+ + + + | 03/24/ | Office | [facility] | Chris Priest, | Impaired mobility | | 2016 | Visit | MED CTR THERAPY PT | MD [address] | and activities of | | | | OP [address] | [place] | daily living | | | | [place] | [address] | (Primary Dx); | | | | [address] | | Impaired functional | | | | [phone] | Della Ravi, PT | mobility, balance, | | | | | [address] | gait, and endurance; | | | | | [place], [place] | Quadriplegia, | | | | | [address] | C5-C7, incomplete | | | | | | ([facility]); Posture | | | | | Claudia Bragg, | imbalance; Neck | | | | | RADIOLOGY SERVICES MANAGER | pain; Bilateral | | | | [...] might be different from mickey mccain original. [facility] CTR THERAPY PT OP [address] [place] [address] Physical Therapy Daily Treatment Note Date: 03/24/2015 [...] Rehab Precautions Office Visit from 02/23/2015 in [facility] CTR THERAPY PT OP Rehab Precautions Precautions Spinal, Cervical Rehab Learning Style Office Visit from 02/23/2015 in [facility] CTR THERAPY PT OP Learning Style [...] [place] | | | | | | [address] | | | | | | | [...]
--- OUTSIDE RECORDS SUMMARY | ~2019-06-19 | XMS | Encounter Summary ---
Demographics + + + | Address | [address] | | | [place] [address] | + + + | Home Phone [...] + | Author | [facility] | | | and Narenana | + + + | Organization | [facility] | [...] [place] | | | | | [address] | | + + + + + Care Team Providers + +------+ + | Care Paster Operator Name | Role | Phone | [...] | | | | function | | [place], | | | | | [place] | | [place] [address] | | | | | geal reflux | | Phone: | | | | | disease | | [phone] | | | | | without | | Fax: | | | | | esophagitis | | [phone] | | | | | Abdominal | [...] | | | | | | | [place] | | | | | | | [...] + + | 12/19/ | Surgery | [facility] | Jonathan Avendaño MD | EGD - PT IS | | 2014 | | MED CTR MP INTRA OP | [address] | PARAPLEGIC | | | | [address] | [place], [place] | | | | | [place], [place] | [address] | | | | | [address] | [phone] | | | | | [phone] | | | +--------+---------+ + + + [...] the physician who did your procedure at [phone] if you have any questions or experience any of the following: ? Increasing abdominal pain, nausea, or vomiting. ? Chills and fever over 101F. ? New abdominal swelling or bloating. ? Signs of rectal bleeding (black or red stool). If you cannot get a hold of your physician, then call the [facility] [phone] . If necessary, report to the [...] 0 | 03/22/19 | | | (MYCOSTATIN) [id number] | | | | 14 | | [...] [place] | | | | | | [address] | | | | | | | [...] 12/19/2014 | PROVATION | | 11:46 AMMRN: [id number] #: [id number] of : | | | 1970Admit Type: AmbulatoryAge: 44Room: [facility] 02Gender: MaleNote | | | Status: FinalizedAttending MD: Jonathan Avendaño [facility] | | | Upper GI endoscopyIndications: Dyspepsia, Dysphagia, | | | Suspected esophageal reflux, NauseaProviders: Jonathan Kang | | | MD Jarocho, Shana Love, RN, Karie Vasquez | | | Sridhar, Chief Radiation Therapist, Blane Tompkins MD (Anesthesia | | | [...] the | | | anesthesiologist and the forest ranger technician in the pre-procedure area in the [...] Scope In: 11:58:14 AMScope Out: 12:04:18 PM Worden | | | [facility], [address] [place] [address] | | | [phone] | | | - Regular diet. | [...] |Scope Out: 12:04:18 PM | | | [facility], [address] [place] [address] | | | [address] | | + + -+ + +---------+ + + | Performing | Address | City/State/Inscription House Health Centercode | Phone Number | | Organization [...] for | | | increased epithelial eosinophils. JVR:[facility]:C2NR GROSS | | | [...] | | | and consists of four pink-abiley color tissue fragments, 0.15 to 0.6 cm. | | | All into (B1). C. The specimen labeled "Martinez Abbasi II" | | | and designated esophagus on the requisition," is received in formalin | | | and consists of three cream-colored tissue fragments, 0.4 cm. All | | | into (C1). yyt:JVR:[facility] PERFORMING LABORATORY: Tissue processing | | | and slide preparation were performed by [facility], [facility] W. | | | [facility], [address], [place] [address] (Box Feeder: Krishna | | | Norma Miranda CLIA#: [id number]). Professional interpretation was | | | performed by [facility], [facility] | | | Branch, [address] [facility], [place] [address] (Box Feeder: | | | Krishna Miranda M.D.; CLIA#: [id number]). Diagnostician: Krishna | | | Allan Miranda [...]
--- OUTSIDE RECORDS SUMMARY | ~2019-06-19 | XMS | Encounter Summary ---
Demographics + + + | Address | [address] | | | [place] [address] | + + + | Home Phone [...] | Author | [facility] | | | and [place] | + + + | Organization | [facility] | | | and [place] | [...] [place] | | | | | [address] | | + + + + + Care Team Providers + +------+ + | Care Entry Level Account Manager Name | Role | Phone | [...] 07/26/ | Telephone | [facility] | Chris Priest, | Referral (Follow up) | | 2013 | | PHYSIATRY [address] | [address] | | | | | [address] | [place] | | | | | [place], [place] | [address] | | | | | [address] | | | | | | [phone] | | | +--------+ + + + [...]
--- OUTSIDE RECORDS SUMMARY | ~2019-06-19 | XMS | Encounter Summary ---
Demographics + + + | Address | [address] | | | [place] [address] | + + + | Home Phone [...] Author | [facility] | | | and Narenana | + + + | Organization | [facility] | | [...] [place] | | | | | [address] | | + + + + + Care Team Providers + +------+ + | Care Hollow Ware Maker Name | Role | Phone | [...] | Quadriplegia | [address] | | | | n | ([facility]) | [address] | [place], | | | | | | [place], | [place] [address] | | | | | | [place] [address] | Phone: | | | | | | Phone: | [phone] | | | | | | [phone] | Fax: | | | | | | Fax: | [phone] | | | | | | [phone] | | +--------+ + + + + [...] PHYSIATRY [address] | MD [address] | | | | | [address] | [place] | | | | | [place] | [address] | | | | | [address] | | | | | | [phone] | | | +--------+ + + + [...] [place] | | | | | | [address] | | | | | | | [...]
--- OUTSIDE RECORDS SUMMARY | ~2019-06-19 | XMS | Encounter Summary ---
Demographics + + + | Address | [address] | | | [place] [address] | + + + | Home Phone [...] Author | [facility] | | | and [place]renana | + + + | Organization | [facility] | [...] [place] | | | | | [address] | | + + + + + Care Team Providers + +------+ + | Care Residential Building Inspector Name | Role | Phone | [...] PHYSIATRY [address] | MD [address] | | | | | [address] | [place], [place] | | | | | [place], [place] | [address] | | | | | [address] | | | | | | [phone] | | | +--------+ + + + [...] [place] | | | | | | [address] | | | | | | | | +--------+---------+ + + + documented as of this encounter Visit Diagnoses Not on filedocumented in this encounter"
--- OUTSIDE RECORDS SUMMARY | ~2019-06-19 | XMS | Encounter Summary ---
Demographics + + + | Address | [address] | | | [place] [address] | + + + | Home Phone [...] Author | [facility] | | | and Narenana | + + + | Organization | 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 Job ID# [id number] signed by Chris Priest MD at 03/03/2014 2:59 PM PSTJfk Johnson Rehabilitation InstituteChris acosta MD - 03/03/2014 12:00 AM PST [facility] [address] [place] [address] FAX: [phone] OFFICE VISIT PHYSICAL MEDICINE REHABILITATION PROGRESS NOTE [...] is having a lot of blood in vt s urine. He was told to reduce [...] injury. Greater than 40 minutes was spent ofpt-ws-tzxs today with Mr. Abbasi, over half of which was spent formulating and discussing his medical treatment plan. CC: Edwar Wilhelm PA-C. Chris Priest Jr, MD VICTOR / KMT JOB #: [id number] signed by Chris Priest MD at 03/04/2014 [...] | | | | | [place] | | | | | | [address] | | | | | | | [...]
--- OUTSIDE RECORDS SUMMARY | ~2019-06-19 | XMS | Encounter Summary ---
Demographics + + + | Address | [address] | | | [place] [address] | + + + | Home Phone [...] Author | [facility] | | | and [place] | + + + | Organization | [facility] [...] [place] | | | | | [address] | | + + + + + Care Team Providers + +------+ + | Care Telecom Assistant Name | Role | Phone | [...] Rehabilitatio | quadriplegia | [address] | [address] | | | | n | at C5-[address] | [address] | [place], | | | | | level (HCC) | [place], | [place] [address] | | | | | Impaired | [place] [address] | Phone: | | | | | mobility and | Phone: | [phone] | | | | | ADLs | [phone] | Fax: | | | | | Procedures | Fax: | [phone] | | | | | pt eval | [phone] | | +--------+ + + + + + Encounter Details +--------+---------+ + + + | Date | Type | Department | Care Team | Description | +--------+---------+ + + + | 03/12/ | Office | [facility] | Chris Priest, | Impaired mobility | | 2016 | Visit | MED CTR THERAPY PT | MD [address] | and activities of | | | | OP [address] | [place] | daily living | | | | [place] | [address] | (Primary Dx); | | | | [address] | | Impaired functional | | | | [phone] | Della Ravi, PT | mobility, balance, | | | | | [address] | gait, and endurance; | | | | | [place] | Quadriplegia, | | | | | [address] | C5-C7, incomplete | | | | | | ([facility]); Posture | | | | | | [...] note might be different from mickey francis. [facility] CTR THERAPY PT OP [address] [place] [address] Physical Therapy Daily Treatment Note Date: 03/12/2015 [...] Rehab Precautions Office Visit from 02/23/2015 in [facility] CTR THERAPY PT OP Rehab Precautions Precautions Spinal, Cervical Rehab Learning Style Office Visit from 02/23/2015 in [facility] CTR THERAPY PT OP Learning [...] options for standing frames and trial of [facility] karmen ding frame. 3 person assist for [...] [place] | | | | | | [address] | | | | | | | [...]
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
--- OUTSIDE RECORDS SUMMARY | ~2019-06-19 | XMS | Encounter Summary ---
Demographics + + + | Address | [address] | | | [place] [address] | + + + | Home Phone [...] Author | [facility] | | | and [place]renana | + + + | Organization | [facility] | | | and [...] [place] | | | | | [address] | | + + + + + Care Team Providers + +------+ + | Care Pearl Peller Name | Role | Phone | + [...] | | | | OP [address] | [place], [place] | | | | | [place], [place] | [address] | | | | | [address] | | | | | | [phone] | | | +--------+ + + + [...] Ren, NADER - 04/15/2015 1:30 PM [facility] [address] [place] [address] Cancellation Date: 04/15/2015 Patient Information Patient Name: [...] [place] | | | | | | [address] | | | | | | | | +--------+---------+ + + + documented as of this encounter Visit Diagnoses Not on filedocumented in this encounter"
--- OUTSIDE RECORDS SUMMARY | ~2019-06-19 | XMS | Encounter Summary ---
Demographics + + + | Address | [address] | | | [place] [address] | + + + | Home Phone [...] | [facility] | | | and [place] | + + + | Organization | [facility] [...] [place] | | | | | [address] | | + + + + + Care Team Providers + +------+ + | Care Online Marketing Analyst Name | Role | Phone [...] | | | | | Procedures | [address] | [address] | | | | | 10/21 PEND | [place], | [address] [place] | | | | | [place] | [place] [address] | [place], [place] | | | | | | Phone: | [phone] | | | | | | [phone] | Phone: | | | | | | Fax: | [phone] | | | | | | [phone] | Fax: | | | | | | | [phone] | +--------+ + + + + + Encounter Details +--------+---------+ + + + | Date | Type | Department | Care Team | Description | +--------+---------+ + + + | 12/08/ | Office | [facility] | Jonathan Avendaño MD | Dysphagia (Primary | | 2015 | Visit | GASTROENTEROLOGY | [address] | Dx); RUQ pain; | | | | [address] [facility] | [place], [place] | Constipation, | | | | [address] [place], [place] | [address] | unspecified | | | | [address] | [phone] | constipation type | | | | [phone] | | | +--------+---------+ + + + [...] [place] | | | | | | [address] | | | | | | | [...]
--- OUTSIDE RECORDS SUMMARY | ~2019-06-19 | XMS | Encounter Summary ---
Demographics + + + | Address | [address] | | | [place] [address] | + + + | Home Phone [...] [facility] | | | and [place] | + + + | Organization | [facility] | | | and [...] [place] | | | | | [address] | | + + + + + Care Team Providers + +------+ + | Care Svp Digital Sales Food & Cooking Name | Role | Phone | + [...] 2013 | | MED CTR EMERGENCY | [place] [address] | change required | | | | CENTER [address] | [place] | (Primary Dx) | | | | [place] | [address] | | | | | [address] | | | | | | [phone] | | | +--------+ + + + [...] be sent through Care Everywhere.BARRIENTOS CATHETER, RAAD (AFGHAN)documented in this encounter Medications at Time of [...] 0 | 03/22/19 | | | (MYCOSTATIN) [id number] | | | | 14 | | [...] [place] | | | | | | [address] | | | | | | | | +--------+---------+ + + + documented as of this encounter Visit Diagnoses + + | Diagnosis | + + | Catheter (urine) change required - Primary Fitting and adjustment of urinary device | + + documented in this encounter"
--- OUTSIDE RECORDS SUMMARY | ~2019-06-19 | XMS | Clinical Summary ---
Demographics + + + | Address | [address] | | | [place] [address] | + + + | Home Phone | | + + + | Preferred Language | Unknown | + + + | Marital Status | | + + + | Anabaptist Affiliation | Unknown | + + + | Race | Unknown | + + + | Ethnic Group | Unknown | + + + Author + + + | Author | [facility] (Historical as of | | | 10-13-18) | + + + | Organization | [facility] (Historical as of | | | 10-13-18) [...] Team Providers + +------+ + | Care Automatic Lump Making Machine Tender Name | Role | Phone | [...] +------+-------+ + | MEDICARE | MEDICA | [id number] | | | [address] | | | [place] | | | | [place] [address] | | | IP-OP | | | | | + +--------+ +------+-------+ + | MEDICAID | EASTER | [id number] | | | [address] | | | N | | | | [place] | | | [place] | | | | [address] | | | PUBLIC RECORDS OFFICER | | | | | + +--------+ +------+-------+ + | [employer] [facility] | YELLOW | [id number] | | | | | PLANS | [...] | | al/Fam | | 1970 | [phone] | [place] | | | adrián | | | [address]44 | [address] | + +--------+ +--------+ + + | MARTINEZ ABBASI II | Third | Self | [birth year] | Home: | [address] | | | [employer] | | 1971 | [phone] | [place] | | | [place] | | | [address] | [address] | | | ity | | | | | + +--------+ +--------+ + +
--- OUTSIDE RECORDS SUMMARY | ~2019-06-19 | XMS | Encounter Summary ---
Demographics + + + | Address | [address] | | | [place] [address] | + + + | Home Phone [...] [facility] | | | and [place]ana | + + + | Organization | [facility] | [...] [place] | | | | | [address] | | + + + + + Care Team Providers + +------+ + | Care Food Products Tester Name | Role | Phone | [...] + + | 10/29/ | Office | [facility] | Chris Priest, | Quadriplegia, C5-C7 | | 2013 | Visit | PHYSIATRY [address] | MD [address] | incomplete (HCC) | | | | [address] | [place] | (Primary Dx); | | | | [place] | [address] | Pressure ulcer, | | | | [address] | | buttock, left, | | | | [phone] | | unstageable (HCC); | | | [...] office note has been dictated. Job ID# [id number] signed by Chris Priest MD at 10/29/2013 2:26 PM PDTLauren Troy RN - 10/29/2013 1:34 PM PDTPatient states mild soreness from PT, but no pain. Patient st ates intermittent spasms. P M Chris Ware MD - 10/29/2013 12:00 AM PDT PHYSICAL MEDICINE AND REHAB [address] [place] [address] FAX: [phone] OFFICE VISIT PHYSICAL MEDICINE REHABILITATION PROGRESS NOTE [...] jones has been seen by urologist in [place]. He indicates they are planning to place [...] Jr, MD JACKIE / CABRERA JOB #: [id number] cc: JANIE Perez-C documented in this encounter [...] [place] | | | | | | [address] | | | | | | | [...]
--- OUTSIDE RECORDS SUMMARY | ~2019-06-19 | XMS | Encounter Summary ---
Demographics + + + | Address | [address] | | | [place] [address] | + + + | Home Phone [...] Author | [facility] | | | and Narenana | + + + | Organization | [facility] | | | and [...] [place] | | | | | [address] | | + + + + + Care Team Providers + +------+ + | Care Project Management Engineer Name | Role | Phone | [...] [place], | | | | | [place], [place] | [place] [address] | | | | | [address] | [phone] | | | | | [phone] | | | +--------+ + + + [...] [place] | | | | | | [address] | | | | | | | | +--------+---------+ + + + documented as of this encounter Visit Diagnoses Not on filedocumented in this encounter"
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
== END 2019-06-19 22:37 | disposition home or self-care (01) ==
LOC: ED 21:21
PROC: 0T9B70Z Drainage of Bladder with Drainage Device, Via Natural or Artificial Opening (ICD-10-PCS; principal; 2019-06-19)
DX: T83.091A Other mechanical complication of indwelling urethral catheter, initial encounter (principal); Z91.030 Bee allergy status; Z79.899 Other long term (current) drug therapy; Z79.82 Long term (current) use of aspirin
CPT/HCPCS: 51702; 81001; 99283-25

== ENCOUNTER 2019-09-23 08:50 | Emergency (ER) | payer MEDICARE, OTHER ==
[~2019-09-23] VITALS: Ht 177.8 cm; Wt 100.0 kg
--- OUTSIDE RECORDS SUMMARY | ~2019-09-23 | XMS | Encounter Summary ---
Demographics + + + | Address | [address] | | | [place] [address] | + + + | Home Phone | | + + + | Preferred Language | Unknown | + + + | Marital Status | Single | + + + | Judaism Affiliation | 1074 | + + + | Race | Unknown | + + + | Ethnic Group | Unknown | + + + Author + + + | Author | [facility] | | | and Narenana | + + + | Organization | [facility] | | | and [place] [...] [place] | | | | | [address] | | + + + + + Care Team Providers + +------+ + | Care Parachute Rigger Name | Role | Phone | + [...] | Specialty | Gastroenterol | Diagnoses | Maria Dolores, | Maria Dolores, | | | Services | ogy | Abdominal | MD Jonathan | MD Jonathan | | | Required | | pain, right | [address] | [address] | | | | | upper | BLVD | [place], | | | | | quadrant | [place] | [place] [address] | | | | | Dysphagia | [address] | Phone: | | | | | Gastroesopha | Phone: | [phone] | | | | | geal reflux | [phone] | Fax: | | | | | disease | Fax: | [phone] | | | | | without | [phone] | | | | | | esophagitis | | | | | | | | | | | | | | Constipation | | | | | | | , | | | | | | | unspecified | | | | | | | constipation | | | | | | | type | | | | | | | Quadriplegia | | | | | | | , | | | | | | | unspecified | | | | | | | (HCC) | | | | | | | 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, | | | | | | | continuous | | | | | | | (HCC) | | | | | | | Sedative, | | | | | | | 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, | | | | | | | continuous | | | | | | | Procedures | | | | | | | [place] | | | | | | | ESOPHAGOGAST | | | | | | | RODUODENOSCO | | | | | | | PY TRANSORAL | | | | | | | DIAGNOSTIC | | | | | | | [place] EDG | | | | | | | TRANSORAL | | | | | | | BIOPSY | | | | | | | SINGLE/MULTI | | | | | | | PLE [place] | | | | | | | ANESTH,UGI | | | | | | | ENDOSCOPY | | | +--------+ + + + + + Encounter Details +--------+ + + + + | Date | Type | Department | Care Team | Description | +--------+ + + + + | 12/09/ | Orders Only | [facility] | Jonathan Avendaño MD | Abdominal pain, | | 2015 | | GASTROENTEROLOGY | [address] | right upper quadrant | | | | [address] [place] | [place], [place] | (Primary Dx); | | | | [address] [place] | [address] | Dysphagia; | | | | [address] | [phone] | Gastroesophageal | | | | [phone] | | reflux disease | | | | | | without esophagitis; | | | | | | Constipation, | | | | | | unspecified | | | | | | constipation type | +--------+ + + + + Social [...] documented as of this encounter Progress Notes Steffany Bob RN - 12/09/2014 4:39 PM PDTPatient scheduled for egd with prop on 12/19 a t [address] Avendaño. Scheduled for RUQ ultrasound on 12/22 at 1200, check-in at 1145. Must be NPO x8 hours. (Devora arayatamela has appt. at 3pm that same day with Dr. Priest). documented in this encounter Plan of Treatment +--------+---------+ + + + | Date | Type | Specialty | Care Team | Description | +--------+---------+ + + + | 09/23/ | Office | Physical Medicine | Chris Pirest, | | | 2020 | Visit | and Rehabilitation | MD Margaux Alexandre | | | | | | [place] | | | | | | [address] | | | | | | | | +--------+---------+ + + + + + +--------+ + + | Name | Type | Priori | Associated Diagnoses | Order Schedule | | | | ty | | | + + +--------+ + + | Ambulatory referral | Outpatient | Routin | Abdominal pain, | Expected: 12/19/2014 | | to Gastroenterology | Referral | e | right upper quadrant | (Approximate), | | (MARIA DOLORES) | | | Dysphagia | Expires: 12/09/2015 | | | | | Gastroesophageal | | | | | | reflux disease | | | | | | without esophagitis | | | | | | Constipation, | | | | | | Unspecified | | | | | | Constipation Type | | + + +--------+ + + documented as of this encounter Results US Abdomen Limited (12/22/2014 12:16 PM PDT) + + | Specimen | + + | | + + + + + | Narrative | Performed At | + + + | LIMITED RIGHT UPPER QUADRANT ULTRASOUND: 12/22/2014 11:56 AM | [facility] | | CLINICAL HISTORY: RUQ pain, rule out hepatomegaly COMPARISON:None | [facility] | | FINDINGS: Liver:The liver is [...] | [facility] | [address] | [place] | [phone] | | [facility] | | [address] | | | - IMAGING | | | | + + + + + documented in this encounter Visit Diagnoses + + | Diagnosis | + + | Abdominal pain, right upper quadrant - Primary | + + | Dysphagia Dysphagia, unspecified | + + | Gastroesophageal reflux disease without esophagitis Esophageal reflux | + + | Constipation, unspecified constipation type | + + documented in this encounter"
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
--- OUTSIDE RECORDS SUMMARY | ~2019-09-23 | XMS | Encounter Summary ---
Demographics + + + | Address | [address] | | | [place] [address] | + + + | Home Phone | | + + + | Preferred Language | Unknown | + + + | Marital Status | Single | + + + | Buddhism Affiliation | 1074 | + + + | Race | Unknown | + + + | Ethnic Group | Unknown | + + + Author + + + | Author | [facility] | | | and Narenana | + + + | Organization | [facility] | | | and [place] [...] [place] | | | | | [address] | | + + + + + Care Team Providers + +------+ + | Care Small Animal Veterinarian Name | Role | Phone | + +------+ + | Edwar Wilhelm PA-C | PCP | | + +------+ + Encounter Details +--------+ + + + + | Date | Type | Department | Care Team | Description | +--------+ + + + + | 09/24/ | Orders Only | [facility] | Provider, | | | 2018 | | SYSTEM GENERIC OP | MD [address] | | | | | [address] | [place] | | | | | [address] [place], [place] | [place] [address] | | | | | [address] | | | | | | [phone] | | | +--------+ + + + [...] [place] | | | | | | [address] | | | | | | | | +--------+---------+ + + + documented as of this encounter Visit Diagnoses Not on filedocumented in this encounter"
--- OUTSIDE RECORDS SUMMARY | ~2019-09-23 | XMS | Encounter Summary ---
Demographics + + + | Address | [address] | | | [place] [address] | + + + | Home Phone [...] + + + | Author | and [facility] | | | and [place] | + + + | Organization | and [facility] | | | and [place] | [...] [place] | | | | | [address] | | + + + + + Care Team Providers + +------+ + | Care Radius Corner Machine Operator Name | Role | Phone [...] | | | | OP [address] | [place], [place] | | | | | [place], [place] | [address] | | | | | [address] | | | | | | [phone] | | | +--------+ + + + [...] the status of standing frameElectronically signed by Tori Luis PT at 7:40 PM PDTdocumented in [...] [place] | | | | | | [address] | | | | | | | [...]
--- OUTSIDE RECORDS SUMMARY | ~2019-09-23 | XMS | Encounter Summary ---
Demographics + + + | Address | [address] | | | [place] [address] | + + + | Home Phone | | + + + | Preferred Language | Unknown | + + + | Marital Status | Single | + + + | Yarsanism Affiliation | 1074 | + + + | Race | Unknown | + + + | Ethnic Group | Unknown | + + + Author + + + | Author | [facility] | | | and [place] | + + + | Organization | [facility] | | | and [place] | [...] [place] | | | | | [address] | | + + + + + Care Team Providers + +------+ + | Care Clinical Documentation Nurse Name | Role | Phone | + +------+ + | Edwar Wilhelm PA-C | PCP | | + +------+ + Encounter Details +--------+ + + + + | Date | Type | Department | Care Team | Description | +--------+ + + + + | 12/21/ | Documentati | [facility] | Tori Luis, | | | 2016 | on | [facility] PT | PT [address] | | | | | OP [address] | [place], [place] | | | | | [place], [place] | [address] | | | | | [address] | | | | | | [phone] | | | +--------+ + + + [...] encounter Progress Notes Tori Luis, PT - 12/22/2015 4:09 PM PDTI spoke to Kendall at [facility] who reporte d that they received the LMN for the standing frame, but have been unable to acquire the nec essary documentation from the MD office and continue to work on that weekly. I asked him to send me an email to keep me updated, and he agreed to do so . documented in this encounter Plan of Treatment [...] [place] | | | | | | [address] | | | | | | | [...]
--- OUTSIDE RECORDS SUMMARY | ~2019-09-23 | XMS | Encounter Summary ---
Demographics + + + | Address | [address] | | | [place] [address] | + + + | Home Phone [...] + + + | Author | [facility] | | | and Narenana | + + + | Organization | [facility] | | | and [place] [...] [place] | | | | | [address] | | + + + + + Care Team Providers + +------+ + | Care Change Management Administrator Name | Role | Phone | + +------+ + | Edwar Wilhelm PA-C | PCP | | + +------+ + Reason for Visit + +--------+ + | Reason | Onset | Comments | | | Date | | + +--------+ + | Referral (Follow up) | 07/26/ | | | | 2013 | | + +--------+ + Encounter Details +--------+ + + + + | Date | Type | Department | Care Team | Description | +--------+ + + + + | 07/26/ | Telephone | [facility] | Chris Priest, | Referral (Follow up) | | 2013 | | PHYSIATRY [address] | [address] | | | | | [address] | [place], [place] | | | | | [place], [place] | [address] | | | | | [address] | | | | | | [phone] | | | +--------+ + + + [...] this encounter Miscellaneous Notes Telephone Encounter - Jennifer Joel RN - 07/26/2013 11:48 AM PDTCalled pt and left message in home phone and cell phone, informed pt that Dr. Priest sent referral for urologist to see pt but it is not urgent. Notified pt that our urologist in [place] is booking until November, bu t Dr. Salgado from [facility] is booking in middle of September. Informed pt to call us back to let us know where he would like the referral to be sent.Electronically signed by Jennifer Joel RN a t 07/26/2013 11:50 AM PDTdocumented in this encounter Plan of Treatment [...] [place] | | | | | | [id number] | | | | | | | | +--------+---------+ + + + documented as of this encounter Visit Diagnoses Not on filedocumented in this encounter"
--- OUTSIDE RECORDS SUMMARY | ~2019-09-23 | XMS | Encounter Summary ---
Demographics + + + | Address | [address] | | | [place] [address] | + + + | Home Phone | | + + + | Preferred Language | Unknown | + + + | Marital Status | Single | + + + | Protestant Affiliation | 1074 | + + + | Race | Unknown | + + + | Ethnic Group | Unknown | + + + Author + + + | Author | [facility] | | | and [place] | + + + | Organization | [facility] | | | and [place] [...] [place] | | | | | [address] | | + + + + + Care Team Providers + +------+ + | Care Home Inspector Name | Role | Phone | [...] | Physical | Diagnoses | Cem, | [facility] | | | Services | Therapy / | Incomplete | Chris Garcia MD | Pt Op [address] | | | Required | Rehabilitatio | quadriplegia | [address] | [place] | | | | n | at [address] | [place], | | | | | level (HCC) | [place], | [place] [address] | | | | | Impaired | [place] [address] | Phone: | | | | | mobility and | Phone: | [phone] | | | | | ADLs | [phone] | Fax: | | | | | Procedures | Fax: | [phone] | | | | | pt eval | [phone] | | +--------+ + + + + + Encounter Details +--------+---------+ + + + | Date | Type | Department | Care Team | Description | +--------+---------+ + + + | 03/12/ | Office | [facility] | Chris Priest, | Impaired mobility | | 2016 | Visit | MED CTR THERAPY PT | MD [address] | and activities of | | | | OP [address] | [place] | daily living | | | | [place] | [address] | (Primary Dx); | | | | [address] | | Impaired functional | | | | [phone] | Della Ravi, PT | mobility, balance, | | | | | [address] | gait, and endurance; | | | | | [place] | Quadriplegia, | | | | | [address] | C5-C7, incomplete | | | | | | ([facility]); Posture | | | | | | imbalance; Neck | | | | | | pain; Bilateral | | | | | | shoulder pain | +--------+---------+ + + + Social History [...] encounter Progress Notes Della Ren, PT - 03/12/2015 3:51 PM PSTFormatting of this note might be different from t he original. [facility] CTR THERAPY PT OP [address] [place] [address] Physical Therapy Daily Treatment Note Date: 03/12/2015 Patient Information Patient Name: Martinez Abbasi II Date of : 1970 Age: 44 y.o. Encounter Diagnoses Code Name Primary? Z74.09 Impaired mobility and activities of daily living Yes Z74.09 Impaired functional mobility, balance, gait, and endurance G82.54 Quadriplegia, C5-C7, incomplete (HCC) R29.3 Posture imbalance M54.2 Neck pain M25.511, M25.512 Bilateral shoulder pain Date of Onset: 02/08/2014 Referring Provider: Chris Priest MD Rehab Precautions Office Visit from 02/23/2015 in [facility] CTR THERAPY PT OP Rehab Precautions Precautions Spinal, Cervical Rehab Learning Style Office Visit from 02/23/2015 in [facility] CTR THERAPY PT OP Learning Style Patient's Optimum Learning Style listening, reading, observation, performance of task Start Time: 1545 Stop time: 1635 Duration: 50 minutes Timed Treatment Codes: 50 minutes # of PT Visits to Date: 2 Subjective: pt arrived with girlfriend and they brought his standing frame to try. Pt repor ts that he is having 7/10 neck pain and had a migraine recently. Pain Assessment: Pain Rating Pre Assessment: 7 Location: neck, right shoulder Objective: Trial of pt's standing frame: [employer] "Get-U-Up": pt was unable to come to a full stand. This frame did not provide enough support for pt and the belted sling slipped up to far and was painful. Pt reported increased shoulder pain and difficulty with breathing due to snug s ling. Pt's current standing frame does not provide a safe position or enough support for pt to use at this time. Discussed other options for standing frames and trial of hospitals karmen salazar frame. 3 person assist for safety. Pt was able to stand for approx 5 min. Before he req uested to sit down.stated that he was fatigued but no increase in pain with this standing fr hugh/sling. Assessment: Pt would benefit from cont. Use of standing frame to determine which style will provide the best support and safe to use with 1 person assist for at home. Next Visit: Cont. With trunk/core strengthening, neck/shoulder pain, transfers, assess karmen salazar frame fit/caregiver training, Electronically signed by: Della Ren PT, 03/12/2015 17:11 Patient Name: Martinez Abbasi II/: 1970/ documented in this encou nter Plan of Treatment +--------+---------+ + + + | Date | Type | Specialty | Care Team | Description | +--------+---------+ + + + | 09/23/ | Office | Physical Medicine | Chris Priest, | | | 2019 | Visit | and Rehabilitation | MD [address]aux [address] | | | | | | [place] | | | | | | [id number] | | | | | | | [...] in joint, shoulder region | + + documented in this encounter
--- OUTSIDE RECORDS SUMMARY | ~2019-09-23 | XMS | Encounter Summary ---
Demographics + + + | Address | [address] | | | [place] [address] | + + + | Home Phone [...] | Author | [facility] | | | and [place] | + + + | Organization | [facility] | | | and [...] [place] | | | | | [address] | | + + + + + Care Team Providers + +------+ + | Care Distribution Spec Name | Role | Phone | + +------+ + | Edwar Wilhelm PA-C | PCP | | + +------+ + Reason for Visit +--------+--------+ + | Reason | Onset | Comments | | | Date | | +--------+--------+ + | Other | 10/18/ | | | | 2016 | | +--------+--------+ + Encounter Details +--------+ + + + + | Date | Type | Department | Care Team | Description | +--------+ + + + + | 10/18/ | Telephone | [facility] | Diomedes Zarate, | Other | | 2016 | | PHYSIATRY [address] | [address] | | | | | [address] | [address], | | | | | [place] | [place] [address] | | | | | [address] | [phone] | | | | | [phone] | | | +--------+ + + + [...] this encounter Miscellaneous Notes Telephone Encounter - Jaime Huddlestoncari Landry - 11/04/2016 11:52 AM PDTYellowhawk called again laurita salazar notes from visit 09/15/16. Still not available in Epic to route. Please advise.Lupei blair signed by Amelia Huddleston at 11/04/2016 11:52 AM PDTTelephone Encounter - Sydnee Bird RN - 10/26/2016 4:17 PM PDTPatient message printed on Dr Zarate's desk for review. El ectronically signed by Tran Bird, RN at 10/26/2016 4:17 PM PDTTelephone Encounter - Flaquito Amelia Landry - 10/26/2016 3:43 PM PDTReceived a call from Awilda at [facility]. She state s that they have still not received notes from patient's visit with Dr. Zarate on 09/15/16. Notes are not yet complete in Epic to route. Awilda would like a call back to discuss this a nd other questions that Martinez has about his plan of care. Awilda can be reached directly at [phone]. elephone Stephanie Warren - 10/18/2016 9:29 AM PDTPatient scheduled for today but is feel ing really ill and can't make it. Dr. Zarate's schedule is full until the time he leaves. Red wray would like to know if he would have further recommendations. Please advise Electronic ally signed by Stephanie Cadena at 10/18/2016 9:33 AM PDTdocumented in this encounter Plan of [...] [place] | | | | | | [address] | | | | | | | | +--------+---------+ + + + documented as of this encounter Visit Diagnoses Not on filedocumented in this encounter"
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
--- OUTSIDE RECORDS SUMMARY | ~2019-09-23 | XMS | Encounter Summary ---
Demographics + + + | Address | [address] | | | [place] [address] | + + + | Home Phone | | + + + | Preferred Language | Unknown | + + + | Marital Status | Single | + + + | Tenriism Affiliation | 1074 | + + + | Race | Unknown | + + + | Ethnic Group | Unknown | + + + Author + + + | Author | [facility] | | | and [place] | + + + | Organization | [facility] | | | and [...] [place] | | | | | [address] | | + + + + + Care Team Providers + +------+ + | Care Motion Picture Actor Name | Role | Phone | + [...] | | | [address] [place] | [place] [address] | | | | | [place] [address] | | | | | | [phone] | | | +--------+ + + + [...] | | | | | | [place] | | | | | | [address] | | | | | | | [...]
--- OUTSIDE RECORDS SUMMARY | ~2019-09-23 | XMS | Encounter Summary ---
Demographics + + + | Address | [address] | | | [place] [address] | + + + | Home Phone | | + + + | Preferred Language | Unknown | + + + | Marital Status | Single | + + + | Scientology Affiliation | 1074 | + + + | Race | Unknown | + + + | Ethnic Group | Unknown | + + + Author + + + | Author | [facility] | | | and [place] | + + + | Organization | [facility] | | | and [place] [...] [place] | | | | | [address] | | + + + + + Care Team Providers + +------+ + | Care Security Systems Specialist Name | Role | Phone | + +------+ + | Edwar Wilhelm PA-C | PCP | | + +------+ + Encounter Details +--------+ + + + + | Date | Type | Department | Care Team | Description | +--------+ + + + + | 04/13/ | Documentati | [facility] | Trav Della Velásquez, | | | 2016 | on | MED CTR THERAPY PT | PT [address] | | | | | OP [address] | [place], [place] | | | | | [place], [place] | [address] | | | | | [address] | | | | | | [phone] | | | +--------+ + + + [...] encounter Progress Notes Della Ren, PT - 04/13/2015 1[facility] [address] [place] [address] Cancellation Date: 04/13/2015 Patient Information Patient Name: Martinez Abbasi II Date of : 1970 Age: 44 y.o. Reason for missed visit: pt called to cancel due to illness Phone call placed: no Plan: Cont with POC Electronically signed by: Della Ren PT, 04/13/2015 13:20 Patient Name: Martinez Abbasi II/: 1970/ documented [...] [place] | | | | | | [address] | | | | | | | | +--------+---------+ + + + documented as of this encounter Visit Diagnoses Not on filedocumented in this encounter"
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
--- OUTSIDE RECORDS SUMMARY | ~2019-09-23 | XMS | Encounter Summary ---
Demographics + + + | Address | [address] | | | [place] [address] | + + + | Home Phone | | + + + | Preferred Language | Unknown | + + + | Marital Status | Single | + + + | Adventist Affiliation | 1074 | + + + | Race | Unknown | + + + | Ethnic Group | Unknown | + + + Author + + + | Author | [facility] | | | and Narenana | + + + | Organization | [facility] [...] [place] | | | | | [address] | | + + + + + Care Team Providers + +------+ + | Care Arc Cutter Plasma Arc Name | Role | Phone | + [...] + + | 11/04/ | Telephone | [facility] | Chris Priest, | Other | | 2014 | | PHYSIATRY [address] | MD [address] | | | | | [address] | [place] | | | | | [place] | [address] | | | | | [address] | | | | | | [phone] | | | +--------+ + + + [...] 11/05/2014 9:28 AM PDTReferral resent from 12/11 fx#[id number] signed by Lauren Troy RN at 11/05/2014 9:28 AM PDTTe jazmin Encounter - Amelia Huddleston - [facility]04[facility]2014 [facility] for a standing station that was previously written for this patient. They state that the patient is now able to use one, but they need a new Rx and some form of documentati on in Dr. Priest's notes stating that this is needed in order for it [place]. Nkechi, a nurse, can be contacted for any further questions or clarification at [phone]. Otherwise this information can be faxed to [...] [place] | | | | | | [address] | | | | | | | | +--------+---------+ + + + documented as of this encounter Visit Diagnoses Not on filedocumented in this encounter"
--- OUTSIDE RECORDS SUMMARY | ~2019-09-23 | XMS | Encounter Summary ---
Demographics + + + | Address | [address] | | | [place] [address] | + + + | Home Phone [...] + + + | Author | [facility] | | | and Narenana | + + + | Organization | [facility] | | | and [...] [place] | | | | | [address] | | + + + + + Care Team Providers + +------+ + | Care Building Architectural Designer Name | Role | Phone | [...] | | | | OP [address] | [place], [place] | | | | | [place], [place] | [address] | | | | | [address] | | | | | | [phone] | | | +--------+ + + + [...] encounter Progress Notes Della Ren, PT - 04/15/2015 1:30 [facility] OP [address] [place] [address] Cancellation Date: 04/15/2015 Patient Information Patient Name: [...] [place] | | | | | | [id number] | | | | | | | | +--------+---------+ + + + documented as of this encounter Visit Diagnoses Not on filedocumented in this encounter"
--- OUTSIDE RECORDS SUMMARY | ~2019-09-23 | XMS | Encounter Summary ---
Demographics + + + | Address | [address] | | | [place] [address] | + + + | Home Phone [...] Author | [facility] | | | and Narenana | + + + | Organization | [facility] | | | and [place] [...] [place] | | | | | [address] | | + + + + + Care Team Providers + +------+ + | Care Saw Handle Assembler Name | Role | Phone | + [...] + + | 08/29/ | Emergency | [facility] | Mikal Doty, | Urinary catheter | | 2013 | | MED CTR EMERGENCY | [place] [address] | change required | | | | CENTER [address] | [place] | (Primary Dx) | | | | [place] | [address] | | | | | [address] | | | | | | [phone] | | | +--------+ + + + [...] following attachments cannot be sent through Care Everywhere.BARRIENTOS CATHETER, CARE ([facility])documented in this encounter Medications at Time of [...] 0 | 03/22/19 | | | (MYCOSTATIN) [id number] | | | | 14 | | [...] documented as of this encounter ED Notes Mikal Doty MD - 08/29/2013 3:01 PM PDT [id number] Mikal Doty MD 08/29/13 1501 ed Doty MD - 08/29/2013 3:01 PM PDT [address] [address] EMERGENCY ROOM REPORT MIKAL DOTY MD Patient: MARTINEZ ABBASI Admitting: MR #: [id number] LOC: PT TYPE: Adm Date: 08/29/2013 : 1970 CHIEF COMPLAINT: Need a Barrientos change. HISTORY OF PRESENT ILLNESS: Martinez is [...] male in no apparent distress. VITAL SIGNS: Branford rature 97.8, pulse 78, respirations 16, BP [...] follow up with his regular doctor. DIAGNOSIS: Barrientos catheter change. DISPOSITION: Home. MIKAL DOTY MD Dictated by MIKAL DOTY MD 08/29/2013 15:01:30 Transcribed on 08/29/2013 21:17:29 by ms job# [id number] Confirmation #: [id number] signed by Mikal Doty MD at 08/30/2013 3:09 PM PD Tdocumented in this encounter Miscellaneous Notes Plan of Care - ONBASE SCAN WAMT - 09/02/2013 12:00 AM PDT D Triage Notes - Noelle Torres RN - 08/29/2013 2:53 PM PDT Pt states he can't get into his regular doctor for a barrientos change this week.Electronically s igned by Noelle [...] [place] | | | | | | [address] | | | | | | | | +--------+---------+ + + + documented as of this encounter Visit Diagnoses + + | Diagnosis | + + | Urinary catheter change required - Primary Fitting and adjustment of urinary device | + + documented in this encounter
--- OUTSIDE RECORDS SUMMARY | ~2019-09-23 | XMS | Encounter Summary ---
Demographics + + + | Address | [address] | | | [place] [address] | + + + | Home Phone | | + + + | Preferred Language | Unknown | + + + | Marital Status | Single | + + + | Quaker Affiliation | 1074 | + + + | Race | Unknown | + + + | Ethnic Group | Unknown | + + + Author + + + | Author | [facility] | | | and Narenana | + + + | Organization | [facility] | | | and [...] [place] | | | | | [address] | | + + + + + Care Team Providers + +------+ + | Care Label Coder Name | Role | Phone | + [...] | | | | , [address] | [address] | [place], | | | | | complete | [place], | [place] [address] | | | | | (HCC) | [place] [address] | Phone: | | | | | Neurogenic | Phone: | [phone] | | | | | bladder | [phone] | Fax: | | | | | | Fax: | [phone] | | | | | | [phone] | | + + + + + [...] Quadriplegia | NEED ADDRESS | [address] | | | | n | ([facility]) | UPDATE | [place] | | | | | | | [place] [address] | | | | | | | Phone: | | | | | | | [phone] | | | | | | | Fax: | | | | | | | [phone] | +--------+--------+ + + + + Encounter Details +--------+---------+ + + + | Date | Type | Department | Care Team | Description | +--------+---------+ + + + | 07/17/ | Office | [facility] | Chris Priest, | Quadriplegia, C5-C7 | | 2013 | Visit | PHYSIATRY [address] | MD [address] | complete (HCC) | | | | [address] | [place], [place] | (Primary Dx); | | | | [place] [facility] [place] | [id number] | Abdominal spasms; | | | | [address] | | Muscle spasm of both | | | | [phone] | | lower legs; | | | [...] office note has been dictated. Job ID# [id number] signed by Chris Priest MD at 07/17/2013 2:50 PM Lauren Guajardo RN - 07/17/2013 11:46 AM PDTPatient states he is hear for a consult regarding care of his spine. States pain to neck, 05/06. Electronically signed by Lauren Troy RN at 4 2:50 PM Chris Ware MD - 07/17/2013 12:00 AM PDT [facility] [address] [place] [address] [place] [address] FAX: [phone] OFFICE VISIT PRIMARY CARE PROVIDER: Bridger Wilhelm [...] as a result. He was taken to [facility] and then transported to [facility], where he had surgical reduction for a C5-6 spinal cord injury and dislocation of bones. Sub sequently, he participated in acute inpatient rehabilitation at [facility]. He was discharged from [facility] at the end of February 2013. He [...] and urinary sepsis. He was hospitalized at [facility] in the ICU for autonomic dysreflexia and [...] Stephanie lift for transfers. [facility], which he is able to control. [...] trength bilaterally. Trace thumb movement and hand chairman & co founder strength bilaterally. Hand closure is with tenodesis. [...] he should purchase a timer to remind hi m to do pressure relief. We discussed that every 2 hours he needs to be doing pressure reli ef while in bed, rolling from gmov-ay-ofhq, or to new position. In regard to [...] etc. Greater than an hour was spent [id number]-[id number] today with Mr. Abbasi, over half of which was spent formulating and discussing his medical treatment plan. Thank you for allowing me to be involved in the care of your the patient. If you have any questions regarding the care of Mr. Abbasi, please do not hesitate to call. Chris Priest Jr, MD SIMPSON / RS JOB #: [id number] cc: JANIE Byrnes-C P DTdocumented in this encounter Miscellaneous Notes Miscellaneous - ONBASE SCAN [facility] - 07/17/2013 12:00 AM PDT iscellaneous - ONBASE SCAN [facility] - 07/09/2013 12:00 AM PDTEle ctronically signed by jett [facility] at 07/23/2013 3:27 PM PDTdocumented [...] [place] | | | | | | [address] | | | | | | | | +--------+---------+ + + + + + +--------+ + + | Name | Type | Priori | Associated Diagnoses | Order Schedule | | | | ty | | | + + +--------+ + + | * [facility] [place] [facility] | Outpatient | Routin | Quadriplegia, | Ordered: 07/17/2013 | | - AMB Referral | Referral | e | C5-C7 complete (HCC) | | | | | | Neurogenic bladder | | + + +--------+ + + documented as of this encounter Visit Diagnoses + + | Diagnosis | + + | Quadriplegia, C5-C7 complete (HCC) - Primary Quadriplegia, C5-C7, complete | + [...]
--- OUTSIDE RECORDS SUMMARY | ~2019-09-23 | XMS | Encounter Summary ---
Demographics + + + | Address | [address] | | | [place] [address] | + + + | Home Phone | | + + + | Preferred Language | Unknown | + + + | Marital Status | Single | + + + | Jain Affiliation | 1074 | + + + | Race | Unknown | + + + | Ethnic Group | Unknown | + + + Author + + + | Author | [facility] | | | and Narenana | + + + | Organization | [facility] | | | and [place] [...] Easy | | | | | [place] | | | | | [address] | | + + + + + Care Team Providers + +------+ + | Care Fisheries Specialist Name | Role | Phone | [...] + + | 01/16/ | Telephone | [facility] | Chris Priest, | Other | | 2016 | | PHYSIATRY [address] | MD [address] | | | | | [address] | [place] | | | | | [place] | [address] | | | | | [address] | | | | | | [phone] | | | +--------+ + + + [...] this encounter Miscellaneous Notes Telephone Encounter - Cadena, Stephanie J - 01/16/2017 8:08 AM PSTPatient was scheduled fo r a follow up with Dr. Priest after seeing Dr. Zarate. Patient would like to know if Dr. Cynthia acosta had recommendations for a paste on chest he discussed with Dr. Zarate. Patient wasn't [place] re of the name of procedure. Please advise Electronically signed by Stephanie Phil Surinder at 8:10 AM PSTdocumented in this encounter Plan of Treatment +--------+---------+ + + + | Date | Type | Specialty | Care Team | Description | +--------+---------+ + + + | 09/23/ | Office | Physical Medicine | Chris Priest, | | | 2019 | Visit | and Rehabilitation | MD [address] | | | | | | [place] | | | | | | [address] | | | | | | | | +--------+---------+ + + + documented as of this encounter Visit Diagnoses Not on filedocumented in this encounter"
--- OUTSIDE RECORDS SUMMARY | ~2019-09-23 | XMS | Encounter Summary ---
Demographics + + + | Address | [address] | | | [place] [address] | + + + | Home Phone [...] | Author | [facility] | | | and Narenana | + + + | Organization | [facility] | | | and [place] [...] [place] | | | | | [address] | | + + + + + Care Team Providers + +------+ + | Care Freelance Interpreter/Translator Name | Role | Phone | + [...] + + | 04/17/ | Emergency | [facility] | [place] | Autonomic | | 2015 | | [facility] | Eliu Garcia MD [address] | dysreflexia (Primary | | | | CENTER [address] | [address] [place] | Dx); Complication, | | | | [place], [place] | [place] [address] | suprapubic catheter | | | | [address] | [phone] | obstruction, initial | | | | [phone] | | encounter (HCC) | +--------+ + [...] 1 tablet by | | 0 | 02/22/ | | | 5 mg tablet | [...] Bid to rash | | 0 | / | | | (MICATIN) 2% cream | [...] 0 | 03/22/19 | | | (MYCOSTATIN) [id number] | | | | 14 | | | UNIT/GM powder | | | | | | + + + +---------+ + + | omeprazole | Take 1 capsule by | | 0 | 20 | | | (PRILOSEC) 20 mg | [...] Abbasi II Emergency Department Encounter Note [address] [place] [address] PCP:Edwar Wilhelm [phone] CHIEF COMPLAINT: Chief Complaint Patient presents with Hypertension autonomic dysreflexia ED Room: ED12/ED12 HPI Martinez Abbasi is a 43 y.o. male who presents to the Emergency Department by ambulance for evaluation of autonomic dysreflexia. The patient states that he was feeling at his usual [facility] this morning and [...] were reviewed along with EMS notes and USP record s if applicable. (See chart for [...] 2. Complication, suprapubic catheter obstruction, initial encounter (HCC) Follow-up Information Follow up with Edwar Wilhelm PA-C. Specialty: Physician Offbearer-Medical Why: As needed Contact information: [address] [place] [address] Eliu Jacob MD 04/17/14 1029 i Sathish kendall RN - 04/17/2014 9:52 AM PSTBed: ED12 [...] in this en counter Plan of Treatment +--------+---------+ + + + | Date | Type | Specialty | Care Team | Description | +--------+---------+ + + + | 09/23/ | Office | Physical Medicine | Chris Priest, | | | 2019 | Visit | and Rehabilitation | MD [address] | | | | | | [place] | | | | | | [id number] | | | | | | | | +--------+---------+ + + + documented as of this encounter Visit Diagnoses + + | Diagnosis | + + | Autonomic dysreflexia - Primary | + + | Complication, suprapubic catheter obstruction, initial encounter (HCC) | + + documented in this encounter"
--- OUTSIDE RECORDS SUMMARY | ~2019-09-23 | XMS | Encounter Summary ---
Demographics + + + | Address | [address] | | | [place] [address] | + + + | Home Phone [...] Author | [facility] | | | and [place]renana | + + + | Organization | [facility] | | | and [place] [...] [place] | | | | | [address] | | + + + + + Care Team Providers + +------+ + | Care Eyeglass Cutter Name | Role | Phone | + [...] | | | | at C5-[address] | [address] | | | | | | level (HCC) | [place], | | | | | | Spasm | [place] [address] | | | | | | Medication | Phone: | | | | | | overuse | [phone] | | | | | | headache | Fax: | | | | | | | [phone] | | +--------+ + + + + [...] Rehabilitatio | quadriplegia | [address] | [address] | | | | n | at C5-[address] | [place], | | | | | level (HCC) | [place], | [place] [address] | | | | | Impaired | [place] [address] | Phone: | | | | | mobility and | Phone: | [phone] | | | | | ADLs | [phone] | Fax: | | | | | Procedures | Fax: | [phone] | | | | | pt eval | [phone] | | +--------+ + + + + + Encounter Details +--------+---------+ + + + | Date | Type | Department | Care Team | Description | +--------+---------+ + + + | 01/13/ | Office | [facility] | Chris Aguirre, | Incomplete | | 2014 | Visit | PHYSIATRY [address] | [address] | quadriplegia at C6 | | | | [address] | [place], [place] | level (HCC) (Primary | | | | [place] | [address] | Dx); Spasm; | | | | [address] | | Neurogenic bowel; | | | | [phone] | | Neurogenic bladder; | | | [...] MD - 01/13/2015 6:31 PM PST [facility] PHYSIATRY [address] [facility] [address] OFFICE NOTE CHRIS AGUIRRE JR, MD Patient: MARTINEZ ABBASI Admitting: MR #: [id number] LOC: PT TYPE: Adm Date: 01/13/2015 : [...] has not yet followed up with the elevator repairer. [facility]. We discussed that by the report esophagus appeared nor mal, there may have been some erythematous gastric lining. We discussed that biopsies were taken, the biopsy results are not available for review. He is advised to follow up with t elevator repairer. We discussed that he may have some [...] Gabapentin 300 mg 3 times per day. [place] 10/325 one tablet 4 times per day, [...] He is advised to follow up with elevator repairer. Abdominal ultrasound of right upper quadrant, 12/22/2014 [...] return to outpatient physical therapy here at [facility], they can do some standing frame education for him. They can also review his mov ements and strength to see if there is any ways that he would benefit from continued therap y strengthening upper extremities to improve mobility and transfers. Neurogenic bladder, he will continue current management with suprapubic catheter. He has been asked to follow up with the elevator repairer regarding his complaint of epigastric p ain. [...] requesting a pain clinic consul rodríguez at [facility] to evaluate the patient and determine whether [...] he will steven ve a consult at [facility] to determine whether or not [...] 01/13/2015 18:31:56 Transcribed on 01/14/2015 08:49:10 by [facility] job# [id number] Confirmation #: [id number] cc: EDWAR [place] PAC [facility], Chris Garcia MD - 01/13/2015 5:08 PM PSTThis office note has been dictated. Job ID# [id number] signed by Chris Aguirre MD at 01/13/2015 [...] St | | | | | | [place] | | | | | | [address] | | | | | | | [...] + | Incomplete quadriplegia at C6 level ([facility]) - Primary Quadriplegia, C5-C7, incomplete | + [...]
--- OUTSIDE RECORDS SUMMARY | ~2019-09-23 | XMS | Encounter Summary ---
Demographics + + + | Address | [address] | | | [place] [address] | + + + | Home Phone | | + + + | Preferred Language | Unknown | + + + | Marital Status | Single | + + + | Hinduism Affiliation | 1074 | + + + | Race | Unknown | + + + | Ethnic Group | Unknown | + + + Author + + + | Author | [facility] | | | and [place]ren[place] | + + + | Organization | [facility] | | | and [...] [place] | | | | | [address] | | + + + + + Care Team Providers + +------+ + | Care Biodiesel Product Development Manager Name | Role | Phone | [...] + + | 10/01/ | Telephone | [facility] | Chris Priest, | Other | | 2014 | | PHYSIATRY [address] | MD [address] | | | | | [address] | [place] | | | | | [place] | [address] | | | | | [address] | | | | | | [phone] | | | +--------+ + + + [...] a s tanding station be sent to [facility]. documented in this encounter Plan of Treatment [...] [place] | | | | | | [id number] | | | | | | | | +--------+---------+ + + + documented as of this encounter Visit Diagnoses Not on filedocumented in this encounter"
--- OUTSIDE RECORDS SUMMARY | ~2019-09-23 | XMS | Clinical Summary ---
Demographics + + + | Address | [address] | | | [place] [address] | + + + | Home Phone | | + + + | Preferred Language | Unknown | + + + | Marital Status | Single | + + + | Anabaptist Affiliation | 1074 | + + + | Race | Unknown | + + + | Ethnic Group | Unknown | + + + Author + + + | Author | [facility] | | | and [place] | + + + | Organization | [facility] | | | and [...] [place] | | | | | [address] | | + + + + + Care Team Providers + +------+ + | Care High Rigger Name | Role | Phone | + +------+ + | Karie oMrin PA-C | PCP | | + +------+ [...] qNoon, 1 qPM, | tablet | | 20 | | e | | tabletIndications: | [...] mouth every 8 hours | | | 4/20 | | e | | chewable tablet [...] | mouth four times | | | 7/20 | | e | | | daily [...] | mouth three times | | | /20 | | e | | packet | daily. | | | 13 | | | + + +---+---+------+---+-------+ | lidocaine | Apply 2 patches to | | 0 | 12/2 | | Activ | | (LIDODERM) 5% patch | skin every | | | 7/20 | | e | | | twenty-four [...] (MICATIN) 2% cream | | | | 4/20 | | e [...] 01/2 | | Activ | | (MYCOSTATIN) [id number] | | | | 4/20 | | e | | UNIT/GM powder [...] | mouth every six | | | 20 | | e | | tablet | hours. | | | 13 | | | + + +---+---+------+---+-------+ | docusate sodium | Take 100 mg by mouth | | 0 | 01/2 | | Activ | | (COLACE) 100 mg | 2 times daily. | | | 06/16 | | e | | capsule | [...] g by mouth | | 0 | 12/ | | Activ | | glycol (MIRALAX) | once daily at | | | 09/15 | | e | | powder | bedtime as needed | | | 13 | | | | | (No BM in past 3 | | | | | | | | days). 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 | | Sensation intact from nipples up. Some movement of suzanne hands and | | arms. | + + + +---+ | SHOULDER PAIN, LEFT | | + +---+ Family History + + +------+ + | [...] + | Blood Pressure | 143/68 | 09/15/2016 12:49 PM | | | | | PDT | | + + + + + | Pulse | 69 | 09/15/2016 12:49 PM | | | | | PDT [...] Weight | 98 kg (216 lb) | 09/15/2016 12:49 PM | | | | | PDT | | + + + + + | Height | 177.8 cm (5' 10") | 09/15/2016 12:49 PM | | | | | PDT | | + + + + + | Body Mass Index | 30.99 | 09/15/2016 12:49 PM | | | | | PDT | | + + + + + Plan of Treatment +--------+---------+ + + + | Date | Type | Specialty | Care Team | Description | +--------+---------+ + + + | 09/23/ | Office | Physical Medicine | Chris Priest, | | | 2019 | Visit | and Rehabilitation | [address] | | | | | | [place] | | | | | | [address] | | | | | | | | +--------+---------+ + + + + + + + [...] | | | | Pneumococcal 19-64 | 7 | | | | (1 of 3 - PCV13) | | | [...] | 14, | | | | | 05/13/20 | | | | | 14, | [...] +--------+ +---------+--------+ | MEDICARE | MEDICA | [id number] | 07/29/19 | [phone] | | Medica | | | RE | | 16-Pre | 5 | | re | | | PART A | | sent | | | | | | AND B | | | | | | + +--------+ +--------+ +---------+--------+ | [employer] | MODA | [id number] | 02/17/ | [phone] | | Medica | | MEDICAID HMO | HEALTH | | 2014-P | 1 | | id | | | MDCD | | resent | | | | | | HMO OR | | | | | | + +--------+ +--------+ +---------+--------+ | [facility] | IHS | [id number] | | | | Indemn | | [...] al/Fam | | 1971 | [phone] | [place] [address] | | | adrián | | | 4 (Home) | | + +--------+ +--------+ + + Advance Directives + + + + + | Type | Date Recorded | Patient | Explanation | | | | Leave Specialist | | + + + + + | Power of | | | | | Marketing Copywriter | | | | + + + [...]
--- OUTSIDE RECORDS SUMMARY | ~2019-09-23 | XMS | Encounter Summary ---
Demographics + + + | Address | [address] | | | [place] [address] | + + + | Home Phone [...] | Author | [facility] | | | and [place]ren[place] | + + + | Organization | [facility] [...] [place] | | | | | [address] | | + + + + + Care Team Providers + +------+ + | Care Multi Needle Machine Operator Name | Role | Phone [...] | | | [address] [place] | [place] [address] | | | | | [place] [address] | | | | | | [phone] | | | +--------+ + + + [...] | | | | | | [place], [place] | | | | | | [address] | | | | | | | [...] + + documented in this encounter Results [facility] [place] 2+Vw (08/06/2018 12:05 AM PDT) + + [...]
--- OUTSIDE RECORDS SUMMARY | ~2019-09-23 | XMS | Encounter Summary ---
Demographics + + + | Address | [address] | | | [place] [address] | + + + | Home Phone | | + + + | Preferred Language | Unknown | + + + | Marital Status | Single | + + + | Restorationism Affiliation | 1074 | + + + | Race | Unknown | + + + | Ethnic Group | Unknown | + + + Author + + + | Author | [facility] | | | and Narenana | + + + | Organization | [facility] | [...] [place] | | | | | [address] | | + + + + + Care Team Providers + +------+ + | Care Roundhouse Worker Name | Role | Phone | + +------+ + | Edwar Wilhelm PA-C | PCP | | + +------+ + Encounter Details +--------+ + + + + | Date | Type | Department | Care Team | Description | +--------+ + + + + | 04/03/ | Documentati | [facility] | Ravi Della Velásquez, | | | 2016 | on | MED CTR THERAPY PT | PT [address] | | | | | OP [address] | [place], [place] | | | | | [place], [place] | [address] | | | | | [address] | | | | | | [phone] | | | +--------+ + + + [...] encounter Progress Notes Della Ren, PT - 04/03/2015 11:02 AM [facility] OP [address] [place] [address] Cancellation/No Show Date: 04/03/2015 Patient Information Patient Name: Martinez Abbasi II Date of : 1970 Age: 44 y.o. Reason for missed visit: pt called to cancel; father in the hospital Phone call placed: no Plan: Cont with POC Electronically signed by: Della Ren PT, 04/03/2015 11:02 Patient Name: Martinez Abbasi II/: 1970/ documented [...] [place] | | | | | | [address] | | | | | | | | +--------+---------+ + + + documented as of this encounter Visit Diagnoses Not on filedocumented in this encounter"
--- OUTSIDE RECORDS SUMMARY | ~2019-09-23 | XMS | Encounter Summary ---
Demographics + + + | Address | [address] | | | [place] [address] | + + + | Home Phone [...] | Author | [facility] | | | and Narenana | + + + | Organization | [facility] [...] [place] | | | | | [address] | | + + + + + Care Team Providers + +------+ + | Care Cemetery Laborer Name | Role | Phone | + +------+ + | Edwar Wilhelm PA-C | PCP | | + +------+ + Encounter Details +--------+ + + + + | Date | Type | Department | Care Team | Description | +--------+ + + + + | 04/24/ | Documentati | [facility] | Trav Della Velásquez, | | | 2016 | on | MED CTR THERAPY PT | PT [address] | | | | | OP [address] | [place], [place] | | | | | [place], [place] | [address] | | | | | [address] | | | | | | [phone] | | | +--------+ + + + [...] Ren, PT - 04/24/2015 12[facility] OP [address] [place] [address] Cancellation/No Show Date: 04/24/2015 Patient Information Patient [...] | | | | | | [place] | | | | | | [id number] | | | | | | | | +--------+---------+ + + + documented as of this encounter Visit Diagnoses Not on filedocumented in this encounter"
--- OUTSIDE RECORDS SUMMARY | ~2019-09-23 | XMS | Encounter Summary ---
Demographics + + + | Address | [address] | | | [place] [address] | + + + | Home Phone [...] Author | [facility] | | | and [place]renana | + + + | Organization | [facility] | | | and [...] [place] | | | | | [address] | | + + + + + Care Team Providers + +------+ + | Care Teletype Installer Name | Role | Phone | [...] + + | 10/29/ | Office | [facility] | Chris Priest, | Quadriplegia, C5-C7 | | 2013 | Visit | PHYSIATRY [address] | MD [address] | incomplete (HCC) | | | | [address] | [place] | (Primary Dx); | | | | [place] | [address] | Pressure ulcer, | | | | [address] | | buttock, left, | | | | [phone] | | unstageable (HCC); | | | [...] office note has been dictated. Job ID# [id number] signed by Chris Priest MD at 10/29/2013 2:26 PM Lauren Guajardo RN - 10/29/2013 1:34 PM PDTPatient states mild soreness from PT, but no pain. Patient st ates intermittent spasms. P M Chris Ware MD - 10/29/2013 12:00 AM PDT [facility] [address] [place] [address] FAX: [phone] OFFICE VISIT PHYSICAL MEDICINE REHABILITATION PROGRESS NOTE [...] jones has been seen by urologist in [place]. He indicates they are planning to place [...] may be considered. We will likely d dino discontinuing DVT prophylaxis 02/2014. Thank you for [...] resolved. Chris Priest Jr, MD JACKIE / CABRERA JOB #: [id number] cc: JANIE Perez-C documented in this encounter [...] [place] | | | | | | [address] | | | | | | | | +--------+---------+ + + + + +------+--------+ + + [...]
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
--- OUTSIDE RECORDS SUMMARY | ~2019-09-23 | XMS | Encounter Summary ---
Demographics + + + | Address | [address] | | | [place] [address] | + + + | Home Phone [...] Author | [facility] | | | and Narenana | + + + | Organization | [facility] | | | [...] [place] | | | | | [address] | | + + + + + Care Team Providers + +------+ + | Care Jump Iron Machine Presser Name | Role | Phone | + +------+ + | Edwar Wilhelm PA-C | PCP | | + +------+ + Encounter Details +--------+ + + + + | Date | Type | Department | Care Team | Description | +--------+ + + + + | 12/31/ | Hospital | [facility] | Conversion | | | 2016 | Encounter | [facility] | Transaction, | | | | | CLINIC [address] | Provider Unknown | | | | | [address] [place], [place] | | | | | | [address] | (Fax) | | | | | [phone] | | | +--------+ + + + [...] Apply topically 4 | | 0 | 01/24/20 | | | (RISAMINE) | times daily. [...] 0 | 03/22/19 | | | (MYCOSTATIN) 584133 | | | | 14 | | [...] Pre-Procedure Instructions by Loren Kumar RN at 01/01/161529 Author: Loren Kumar RN Service: Anesthesiology Author Type: Registered Nurse Filed: 01/01/161531 Date of Service: 01/01/161529 Status: Signed Sports Manager: Loren Kumar RN (Registered Nurse) Patient stated he saw a water filtration technician in [facility] at [facility], but medical records the re, unable to find any tests, notes, to send. onver román Transaction, Provider Unknown - 01/01/2016 3:21 PM PDT Pre-Procedure Instructions by Loren Kumar RN at 01/01/16 152 Author: Loren Kumar RN Service: Anesthesiology Author Type: Registered Nurse Filed: 01/01/16 1523 Date of Service: 01/01/161520 Status: Signed Sports Manager: Loren Kumar RN (Registered Nurse) Unable [...] [place] | | | | | | [address] | | | | | | | | +--------+---------+ + + + documented as of this encounter Visit Diagnoses Not on filedocumented in this encounter
--- OUTSIDE RECORDS SUMMARY | ~2019-09-23 | XMS | Encounter Summary ---
Demographics + + + | Address | [address] | | | [place] [address] | + + + | Home Phone [...] + + + | Author | [facility] | | | and Narenana | + + + | Organization | [facility] | | | and [...] [place] | | | | | [address] | | + + + + + Care Team Providers + +------+ + | Care Edge Dyer Name | Role | Phone | + [...] Rehabilitatio | quadriplegia | [address] | | | | n | at C5-[address] | [address] | [place], | | | | | level (HCC) | [place], | [place] [address] | | | | | Impaired | [place] [address] | Phone: | | | | | mobility and | Phone: | [phone] | | | | | ADLs | [phone] | Fax: | | | | | Procedures | Fax: | [phone] | | | | | pt eval | [phone] | | +--------+ + + + + + Encounter Details +--------+---------+ + + + | Date | Type | Department | Care Team | Description | +--------+---------+ + + + | 03/24/ | Office | [facility] | Chris Priest, | Impaired mobility | | 2016 | Visit | MED CTR THERAPY PT | MD [address] | and activities of | | | | OP [address] | [place] | daily living | | | | [place] | [address] | (Primary Dx); | | | | [address] | | Impaired functional | | | | [phone] | Della Ravi, PT | mobility, balance, | | | | | [address] | gait, and endurance; | | | | | [place], [place] | Quadriplegia, | | | | | [address] | C5-C7, incomplete | | | | | | ([facility]); Posture | | | | | Claudia Bragg, | imbalance; Neck | | | | | COPRA SAMPLER | pain; Bilateral | | | | [...] might be different from t he original. [facility] CTR THERAPY PT OP [address] [place] [address] Physical Therapy Daily Treatment Note Date: 03/24/2015 Patient Information Patient Name: Martinez Abbasi II Date of : 1970 Age: 44 y.o. Encounter Diagnoses Code Name Primary? Z74.09 Impaired mobility and activities of daily living Yes Z74.09 Impaired functional mobility, balance, gait, and endurance G82.54 Quadriplegia, C5-C7, incomplete ([facility]) R29.3 Posture imbalance M54.2 Neck pain M25.511, M25.512 Bilateral shoulder pain Date of Onset: 02/08/2014 Referring Provider: Chris Priest MD Rehab Precautions Office Visit from 02/23/2015 in [facility] CTR THERAPY PT OP Rehab Precautions Precautions Spinal, Cervical Rehab Learning Style Office Visit from 02/23/2015 in [facility] CTR THERAPY PT OP Learning [...] [place] | | | | | | [address] | | | | | | | [...]
--- OUTSIDE RECORDS SUMMARY | ~2019-09-23 | XMS | Encounter Summary ---
Demographics + + + | Address | [address] | | | [place] [address] | + + + | Home Phone [...] | Author | [facility] | | | and Narenana | + + + | Organization | [facility] | | | and [...] [place] | | | | | [address] | | + + + + + Care Team Providers + +------+ + | Care Rn Support Services Name | Role | Phone | + [...] | | | | OP [address] | [place], [place] | | | | | [place], [place] | [address] | | | | | [address] | | | | | | [phone] | | | +--------+ + + + [...] Ren, PT - [facility]21[facility]2015 [facility] [address] [place] [address] Cancellation/No Show Date: 04/21/2015 Patient Information Patient [...] [place] | | | | | | [address] | | | | | | | | +--------+---------+ + + + documented as of this encounter Visit Diagnoses Not on filedocumented in this encounter"
--- OUTSIDE RECORDS SUMMARY | ~2019-09-23 | XMS | Encounter Summary ---
Demographics + + + | Address | [address] | | | [place] [address] | + + + | Home Phone [...] | Author | [facility] | | | and Narenana | + + + | Organization | [facility] | | | and [...] [place] | | | | | [address] | | + + + + + Care Team Providers + +------+ + | Care Academic Guidance Specialist Name | Role | Phone | [...] | | | | OP [address] | [place], [place] | | | | | [place], [place] | [address] | | | | | [address] | | | | | | [phone] | | | +--------+ + + + [...] Ren, PT - 02/05/2015 1[facility] OP [address] [place] [address] Cancellation Date: 02/05/2015 Patient Information Patient Name: [...] [place] | | | | | | [address] | | | | | | | | +--------+---------+ + + + documented as of this encounter Visit Diagnoses Not on filedocumented in this encounter
--- OUTSIDE RECORDS SUMMARY | ~2019-09-23 | XMS | Encounter Summary ---
Demographics + + + | Address | [address] | | | [place] [address] | + + + | Home Phone [...] | Author | [facility] | | | and Narenana | + + + | Organization | [facility] | | [...] [place] | | | | | [address] | | + + + + + Care Team Providers + +------+ + | Care Shiatsu Therapist Name | Role | Phone | + [...] + + | 11/11/ | Telephone | [facility] | Chris Priest, | Forms | | 2014 | | PHYSIATRY [address] | MD [address] | | | | | [address] | [place] | | | | | [place] | [address] | | | | | [address] | | | | | | [phone] | | | +--------+ + + + [...] scanned in at MR. elephone Encounter - [place] Amelia Landry - 11/11/2014 11 :22 AM PDTCarrie with [employer] called to inquire about some forms that [...] [place] | | | | | | [address] | | | | | | | | +--------+---------+ + + + documented as of this encounter Visit Diagnoses Not on filedocumented in this encounter
--- OUTSIDE RECORDS SUMMARY | ~2019-09-23 | XMS | Encounter Summary ---
Demographics + + + | Address | [address] | | | [place] [address] | + + + | Home Phone [...] | Author | [facility] | | | and Narenana | + + + | Organization | [facility] [...] Team Providers + +------+ + | Care Specialty Molder Name | Role | Phone | [...] Rehabilitatio | quadriplegia | [address] | [place] | | | | n | at C5-6 | [address] | [place], | | | | | level (HCC) | [place], | [place] [address] | | | | | Impaired | [place] [address] | Phone: | | | | | mobility and | Phone: | [phone] | | | | | ADLs | [phone] | Fax: | | | | | Procedures | Fax: | [phone] | | | | | pt eval | [phone] | | +--------+ + + + + + Encounter Details +--------+---------+ + + + | Date | Type | Department | Care Team | Description | +--------+---------+ + + + | 06/17/ | Office | [facility] | Chris Priest, | Impaired mobility | | 2016 | Visit | MED CTR THERAPY PT | MD [address] | and activities of | | | | OP [address] | [place] | daily living | | | | [place] | [address] | (Primary Dx); | | | | [address] | | Impaired functional | | | | [phone] | Tori Luis, PT | mobility, balance, | | | | | [address] | gait, and endurance; | | | | | [place] | Quadriplegia, | | | | | [address] | C5-C7, incomplete | | | | [...] might be different fro m the original. [facility] CTR THERAPY PT OP [address] [place] [address] Physical Therapy Daily Treatment Note Date: 06/18/2015 [...] Rehab Precautions Office Visit from 02/23/2015 in [facility] CTR THERAPY PT OP Rehab Precautions Precautions Spinal, Cervical Rehab Learning Style Office Visit from 02/23/2015 in [facility] CTR THERAPY PT OP Learning Style Patient's Optimum Learning Style listening, reading, observation, performance of task Start Time: 1615 Stop time: 1700 Duration: 45 minutes Timed [...] hip flexors, knee flexors, ankle plantarflexors- P artner is helping him with calf stretch, He [...] [place] | | | | | | [id number] | | | | | | | [...]
--- OUTSIDE RECORDS SUMMARY | ~2019-09-23 | XMS | Encounter Summary ---
Demographics + + + | Address | [address] | | | [place] [address] | + + + | Home Phone [...] + | Author | [facility] | | | and Narenana | + + + | Organization | [facility] | | [...] [place] | | | | | [address] | | + + + + + Care Team Providers + +------+ + | Care Verification Specialist Name | Role | Phone | [...] Rehabilitatio | quadriplegia | [address] | [place] | | | | n | at C5-6 | [address] | [place], | | | | | level (HCC) | [place], | [place] [address] | | | | | Impaired | [place] [address] | Phone: | | | | | mobility and | Phone: | [phone] | | | | | ADLs | [phone] | Fax: | | | | | Procedures | Fax: | [phone] | | | | | pt eval | [phone] | | +--------+ + + + + + Encounter Details +--------+---------+ + + + | Date | Type | Department | Care Team | Description | +--------+---------+ + + + | 04/08/ | Office | [facility] | Chris Priest, | Impaired mobility | | 2016 | Visit | MED CTR THERAPY PT | MD [address] | and activities of | | | | OP [address] | [place] | daily living | | | | [place] | [address] | (Primary Dx); | | | | [address] | | Impaired functional | | | | [phone] | Della Ravi, PT | mobility, balance, | | | | | [address] | gait, and endurance; | | | | | [place] | Quadriplegia, | | | | | [address] | C5-C7, incomplete | | | | | | ([facility]); Posture | | | | | [...] THERAPY PT OP [address] [place] [address] Physical Therapy Daily Treatment Note Date: 04/08/2015 [...] [place] | | | | | | [address] | | | | | | | [...]
--- OUTSIDE RECORDS SUMMARY | ~2019-09-23 | XMS | Encounter Summary ---
Demographics + + + | Address | [address] | | | [place] [address] | + + + | Home Phone [...] | Author | [facility] | | | and Narenana | + + + | Organization | [facility] | | | and [place] [...] [place] | | | | | [address] | | + + + + + Care Team Providers + +------+ + | Care Topstitcher Lockstitch Name | Role | Phone | + [...] | | | | OP [address] | [place], [place] | | | | | [place], [place] | [address] | | | | | [address] | | | | | | [phone] | | | +--------+ + + + [...] Ren, PT - 05/06/2015 4[facility] PM [facility] [address] [place] [address] Cancellation Date: 05/06/2015 Patient Information Patient Name: [...] [place] | | | | | | [address] | | | | | | | | +--------+---------+ + + + documented as of this encounter Visit Diagnoses Not on filedocumented in this encounter"
--- OUTSIDE RECORDS SUMMARY | ~2019-09-23 | XMS | Encounter Summary ---
Demographics + + + | Address | [address] | | | [place] [address] | + + + | Home Phone | | + + + | Preferred Language | Unknown | + + + | Marital Status | Single | + + + | Gnosticist Affiliation | 1074 | + + + | Race | Unknown | + + + | Ethnic Group | Unknown | + + + Author + + + | Author | [facility] | | | and Narenana | + + + | Organization | [facility] | | | and [place] [...] [place] | | | | | [address] | | + + + + + Care Team Providers + +------+ + | Care Stenographic Court Reporter Name | Role | Phone | + +------+ + | Edwar Wilehlm PA-C | PCP | | + +------+ [...] Rehabilitatio | quadriplegia | [address] | [place] | | | | n | at C5-6 | [address] | [place], | | | | | level (HCC) | [place], | [place] [address] | | | | | Impaired | [place] [address] | Phone: | | | | | mobility and | Phone: | [phone] | | | | | ADLs | [phone] | Fax: | | | | | Procedures | Fax: | [phone] | | | | | pt eval | [phone] | | +--------+ + + + + + Encounter Details +--------+---------+ + + + | Date | Type | Department | Care Team | Description | +--------+---------+ + + + | 06/15/ | Office | [facility] | Chris Priest, | Impaired mobility | | 2016 | Visit | MED CTR THERAPY PT | MD [address] | and activities of | | | | OP [address] | [place] | daily living | | | | [place] | [address] | (Primary Dx); | | | | [address] | | Impaired functional | | | | [phone] | Della Ravi, PT | mobility, balance, | | | | | [address] | gait, and endurance; | | | | | [place] | Quadriplegia, | | | | | [address] | C5-C7, incomplete | | | | | | ([facility]); Posture | | | | | Martin Ravi, | imbalance; Neck | | | | | RESOURCE MANAGER [address] | pain; Bilateral | | | | | [place] | shoulder pain, | | | | | [address] | unspecified | | | | | [...] 1: Independent with home exercise program for care home health and 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 Goal 1 Status: progressing. Treatment Plan/Interventions: 95822 - PT Evaluation 37809 - Therapeutic Exercise 83761 - Neuromuscular Reeducation 82336 - PT Re-Evaluation 74346 - Gait Training 02109 - Therapeutic Activities 51772 - Manual Therapy 54773 - Self Care/Home Management 29610 - Electrical Stimulation, Attended Requested # of [...] might be different from t adán original. [facility] CTR THERAPY PT OP [address] [place] [address] Physical Therapy Progress Assessment Re-Certification Date: 06/16/2015 [...] Rehab Precautions Office Visit from 02/23/2015 in [facility] CTR THERAPY PT OP Rehab Precautions Precautions Spinal, Cervical Rehab Learning Style Office Visit from 02/23/2015 in [facility] CTR THERAPY PT OP Learning Style Patient's Optimum Learning Style listening, reading, observation, performance of task Pain Assessment: Pain Rating Pre Assessment: 7 Pain Rating Post Assessment: 4 Location: right shoulder/neck SUBJECTIVE: Martinez Rogelnaida II has completed 5 visits for treatment [...] and they are waiting to hear from [facility]. Patient reports improvements with increased UE/hands and trunk strength/ROM and increased sensation and now feels some into thighs. However continues to report high pain levels in neck/STEVEN and right shoulder/upper back and weakness in LE's/trunk. Pt continues to require assistance wit h transfers/mobility and uses an electric tilt-in space WC for mobility in the house and [facility]. OBJECTIVE: Mobility: Bed Mobility Additional Documentation: supine to/from sit Assistive Device: bed rails Supine to Sit, Level of [place]entry: moderate assist (50% patient effort) Sit to Supine, Level of [place]entry: moderate assist (50% patient effort) Safety Issues: decreased use of arms for pushing/pulling, decreased use of legs for bridgin g/pushing, impaired trunk control for bed mobility Impairments: sensation decreased, strength decreased, impaired balance, coordination impair ed, motor control impaired, postural control impaired, sensory feedback impaired, pain Transfers Additional Documentation: bed to/from chair Bed-Chair, Level of [place]entry: minimum assist (75% patient effort) (assist with LE's to guide knees: bed is higher than WC) Chair-Bed, Level of [place]entry: moderate assist (50% patient effort) Hzp-Hziaa-Shb, Assistive Device: sliding board (SB used only for WC to bed (due to height d ifference)) Safety Issues: balance decreased during turns Impairments: sensation decreased, impaired balance, coordination impaired, motor control im paired, postural control impaired, sensory feedback impaired, pain, strength decreased Sensation Sensation Note: overall pt reports an increase in light touch sensation/pressure and now steven s pressure sensation in buttocks/thigh LUE Sensation: [...] (C8): 1 to 2-/5 2-/5 2- 2- County Home Demonstration Agent: Poor: able to close partially without using tenodesis Poor: able to close partially w ithout using tenodesis poor poor Clonus: positive positive Outcome Measure: Initial Assessment Progress Note / Discharge Spinal Cord Coventry Measure Special Tests: Neuro Fabiola Assessments Modified [...] 1: Independent with home exercise program for care home health and 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 Goal 1 Status: progressing. Plan Date of Onset: 02/08/2014 Start of Care Date: 02/23/2015 Requested # of Visits: 24 visits 2x/week for 12 weeks Certification From: 06/16/2015 Certification To: 09/09/2015 Treatment Plan/Interventions 42206 - PT Onitbaajgu60611 - Therapeutic Syszhfbh15368 - Neuromuscular Yhmbrnuacgo73166 - P T Re-Izpivstlmr18852 - Gait Kyufpgdy25309 - Therapeutic Xfeafnqnzw92612 - Manual Mhsmqnu7729 5 - Self Care/Home Ovwohjnuci41067 - Electrical Stimulation, Attended Patient and/or family has indicated understanding of treatment needs and actively participa caern in the creation of this plan for care. Today's Treatment Start Time: 1414 Stop time: 1500 Duration: 45 minutes Timed [...] [place] | | | | | | [address] | | | | | | | [...]
--- OUTSIDE RECORDS SUMMARY | ~2019-09-23 | XMS | Encounter Summary ---
Demographics + + + | Address | [address] | | | [place] [address] | + + + | Home Phone [...] | [facility] | | | and Narenana | + + + | Organization | [facility] | | | and [...] [place] | | | | | [address] | | + + + + + Care Team Providers + +------+ + | Care Digital Cartographic Technician Name | Role | Phone | [...] + | 04/08/ | Emergency | [facility] | Reagan Clifford MD | Urinary catheter | | 2016 | | MED CTR EMERGENCY | [address] | ([place]) change | | | | CENTER [address] | [place] | required (Primary | | | | [place] | [address] | Dx) | | | | [address] | | | | | | [phone] | | | +--------+ + + + [...] 0 | 03/22/19 | | | (MYCOSTATIN) [id number] | | | | 14 | | [...] Department Encounter Note CHIEF COMPLAINT: Catheter change DEBBIE Abbasi II is a 44 y.o. male who presents to the Emergency Department with chronic i ndwelling suprapubic catheter. Usually gets it changed once a month. He is currently in be tween urologist and is scheduled to be seen in [place] but was unable to get it changed. [...] IS PARAPLEGIC; Surgeon: Jonathan Avendaño MD; Location: [facility] REVIEW OF SYSTEMS As in history of [...] mented in this encounter Plan of Treatment +--------+---------+ + + + | Date | Type | Specialty | Care Team | Description | +--------+---------+ + + + | 09/23/ | Office | Physical Medicine | Chris Priest, | | | 2019 | Visit | and Rehabilitation | MD [address] | | | | | | [place] | | | | | | [address] | | | | | | | | +--------+---------+ + + + documented as of this encounter Visit Diagnoses + + | Diagnosis | + + | Urinary catheter ([place]) change required - Primary Fitting and adjustment of urinary | | device | + + documented in this encounter
--- OUTSIDE RECORDS SUMMARY | ~2019-09-23 | XMS | Encounter Summary ---
Demographics + + + | Address | [address] | | | [place] [address] | + + + | Home Phone [...] + + | Author | [facility] | | | and Narenana | + + + | Organization | [facility] | | | and [...] [place] | | | | | [address] | | + + + + + Care Team Providers + +------+ + | Care Facilities Maintenance Manager Name | Role | Phone | + +------+ + | Katharine Greenfield PA-C | PCP | | + [...] | | | | | Procedures | [address] | [address] [place] | | | | | 10/21 PEND | [place], | [address] [place] | | | | | [place] | [place] [address] | [place], [place] | | | | | | Phone: | [phone] | | | | | | [phone] | Phone: | | | | | | Fax: | [phone] | | | | | | [phone] | Fax: | | | | | | | [phone] | +--------+ + + + + + Reason for Visit + + + | Reason | Comments | + + + | Follow-up | | + + + Encounter Details +--------+---------+ + + + | Date | Type | Department | Care Team | Description | +--------+---------+ + + + | 10/20/ | Office | [facility] | Chris Aguirre, | Incomplete | | 2014 | Visit | PHYSIATRY [address] | MD [address] | quadriplegia at C6 | | | | [address] | [place] | level ([facility]) (Primary | | | | [place], [place] | [address] | Dx); Epigastric | | | | [address] | | pain; Abdominal | | | | [phone] | | spasms; Spasm; | | | [...] MD - 10/20/2014 4:17 PM PDT [facility] PHYSIATRY [address] [place] [address] OFFICE NOTE CHRIS AGUIRRE JR, MD Patient: MARTINEZ ABBASI Admitting: MR #: [id number] LOC: PT TYPE: Adm Date: 10/20/2014 : [...] 10/20/2014 16:17:43 Transcribed on 10/21/2014 05:27:40 by [facility] job# [id number] Confirmation #: [id number] cc: KATHARIEN GREENFIELD PAC [facility], Chris Garcia MD - 10/20/2014 4:05 PM PDTThis office note has been dictated. Job ID# [id number] signed by Chris Aguirre MD at 10/20/2014 4:17 PM PDTdocumented in this encounter Plan of Treatment +--------+---------+ + + + | Date | Type | Specialty | Care Team | Description | +--------+---------+ + + + | 09/23/ | Office | Physical Medicine | Chris Aguirre, | | | 2020 | Visit | and Rehabilitation | MD [address] | | | | | | [place] | | | | | | [address] | | | | | | | [...]
--- OUTSIDE RECORDS SUMMARY | ~2019-09-23 | XMS | Encounter Summary ---
Demographics + + + | Address | [address] | | | [place] [address] | + + + | Home Phone [...] Author | [facility] | | | and Narenana | + + + | Organization | [facility] | | | and [place] [...] [place] | | | | | [address] | | + + + + + Care Team Providers + +------+ + | Care Mobile Home Mechanic Name | Role | Phone | [...] + + | 05/14/ | Telephone | [facility] | Chris Priest MD | Other | | 2014 | | OTOLARYNGOLOGY [address] | [address] | | | | | [address] | [place] [address] [facility] | | | | | [place] | [place] [address] | | | | | [address] | [phone] | | | | | [phone] | | | +--------+ + + + [...] go out of town on Monday to [place] for a family emergency and would like to know if it will be ok, c onsidering his condition. Or if there is any recommendations. Good number to call back at is [phone] signed by Lesley Casey at 05/14/2014 3:24 [...] [place] | | | | | | [phone] | | | | | | | | +--------+---------+ + + + documented as of this encounter Visit Diagnoses Not on filedocumented in this encounter"
--- OUTSIDE RECORDS SUMMARY | ~2019-09-23 | XMS | Encounter Summary ---
Demographics + + + | Address | [address] | | | [place] [address] | + + + | Home Phone [...] | Author | [facility] | | | and Narenana | + + + | Organization | [facility] [...] [place] | | | | | [address] | | + + + + + Care Team Providers + +------+ + | Care Political Organizer Name | Role | Phone | + [...] ANAIS | | | | n | ([facility]) | [address] | [address] | | | | | Abdominal | [place], | [place] | | | | | spasms | [place] [address] | [address] Phone: | | | | | Muscle spasm | Phone: | [phone] | | | | | of both | [phone] | Fax: | | | | | lower legs | Fax: | [phone] | | | | | Neurogenic | [phone] | | | | | | bladder [...] + + | 06/14/ | Office | [facility] | Chris Priest, | Quadriplegia (HCC) | | 2017 | Visit | PHYSIATRY [address] | MD [address] | (Primary Dx); | | | | [address] | [place] | Abdominal spasms; | | | | [place] | [address] | Muscle spasm of both | | | | [address] | | lower legs; | | | | [phone] | | Neurogenic bladder; | | | [...] + + | Height | 177.8 cm (") | 06/14/2016 4:30 PM | | | | | PDT | | + + + + + | Body Mass Index | 30.99 | 06/14/2016 4:30 PM | | | | | PDT | | + + + + + documented in this encounter Patient Instructions Patient Instructions Dia Loza, Facilities Engineer - 06/14/2016 5:02 PM PDTContin ue [...] baclofen is n ow being managed through [employer]. Martinez Abbasi II reports that he has increased function in his arms and hands. With yash nuation of physical therapies. He reports that he can now automotive tire testing supervisor objects in his right hand. Martinez Abbasi [...] to the cervical region. He has tenodesis automotive tire testing supervisor in both hands. He has 4+/5 wrist [...] Martinez Abbasi II has pain contract through [facility] and is advised to continue care [...] MD (Jr.) ELECTRONICALLY SIGNED BY: Dia Loza, Certified Medical Technician, 06/14/2016 16:58 I Ashley Ortiz am personally [...] [place] | | | | | | [address] | | | | | | | | +--------+---------+ + + + + + +--------+ + + | Name | Type | Priori | Associated Diagnoses | Order Schedule | | | | ty | | | + + +--------+ + + | * [facility] | Outpatient | Routin | Quadriplegia [...]
--- OUTSIDE RECORDS SUMMARY | ~2019-09-23 | XMS | Encounter Summary ---
Demographics + + + | Address | [address] | | | [place] [address] | + + + | Home Phone [...] | [facility] | | | and Narenana | + + + | Organization | [facility] [...] [place] | | | | | [address] | | + + + + + Care Team Providers + +------+ + | Care Residence Hall Director Name | Role | Phone | [...] ANAIS | | | | n | (HCC) | [address] | [address] | | | | | Abdominal | [place], | [place] | | | | | spasms | [place] [address] | [address] Phone: | | | | | Muscle spasm | Phone: | [phone] | | | | | of both | [phone] | Fax: | | | | | lower legs | Fax: | [phone] | | | | | Neurogenic | [phone] | | | | | | bladder [...] + + | 09/15/ | Office | [facility] | Diomedes Zarate, | Tetraplegia (HCC) | | 2017 | Visit | [address]YSIATRY [address] | [address] | (Primary Dx) | | | | [address] | [address] [place], | | | | | [place] | [place] [address] | | | | | [address] | [phone] | | | | | [phone] | | | +--------+---------+ + + + [...] Medicine Consult Note Diomedes Zarate MD [address] [facility] [address] [place], [place] [id number] FAX: CHIEF COMPLAINT: Chief Complaint Patient presents [...] worked, was ordered by PT in [facility]. Uses transfers with transfer board, independently. [...] a year, reports he was never educa craen on use of nitropaste, does not have [...] IS PARAPLEGIC; Surgeon: Jonathan Avendaño MD; [facility] CURRENT MEDICATIONS: Current Outpatient Prescriptions Medication Sig [...] bilaterally, absent C8 and distally ASSESSMENT: Martinez Abbasi II presents today for management of chronic tetraplegia. Patients exam cons istent with C7 AIS A SCI #Equipment - Patient would like a new stander, tough from the sound of it the non-functiona l one that he has is only a few years old so unlikely that insurance will pay for another on e. For reference [facility] has a wheelchair clinic where vendors are [...] PLAN: -Return to clinic before I leave [facility] in October, otherwise can follow-up with [...] in thi s encounter Plan of Treatment +--------+---------+ + + + | Date | Type | Specialty | Care Team | Description | +--------+---------+ + + + | 09/23/ | Office | Physical Medicine | Chris Priest, | | | 2019 | Visit | and Rehabilitation | MD Margaux Forrester | | | | | | [place] | | | | | | [id number] | | | | | | | | +--------+---------+ + + + documented as of this encounter Visit Diagnoses + + | Diagnosis | + + | Tetraplegia (HCC) - Primary Quadriplegia, unspecified | + + documented in this encounter
--- OUTSIDE RECORDS SUMMARY | ~2019-09-23 | XMS | Encounter Summary ---
Demographics + + + | Address | [address] | | | [place] [address] | + + + | Home Phone [...] | Author | [facility] | | | and Narenana | + + + | Organization | [facility] [...] [place] | | | | | [address] | | + + + + + Care Team Providers + +------+ + | Care Biology Specialist Name | Role | Phone | + +------+ + | Edwar Wlihelm PA-C | PCP | | + +------+ + Reason for Visit + + + | Reason | Comments | + + + | Head Pain | | + + + Encounter Details +--------+ + + + + | Date | Type | Department | Care Team | Description | +--------+ + + + + | 11/09/ | Emergency | [facility] | Herman Troy, | Cephalgia (Primary | | 2013 | | MED CTR EM[facility] | MD [address] | Dx); Constipation; | | | | CENTER [address] | [facility] [place] | Urinary tract | | | | [place] | [place] [address] | infection; 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 [facility] Martinez Abbasi II Emergency Department Encounter Note [address] [place] [address] PCP:Edwar Wilhelm [phone] CHIEF COMPLAINT Chief Complaint [...] vi sit in 3 days. Specialty: Physician Pulverizer Tender-Medical Contact information: [address] [place] [id number] New Prescriptions CEPHALEXIN (KEFLEX) 500 MG CAPSULE Take 1 capsule by mouth 4 times daily for 10 days. POLYETHYLENE GLYCOL (MIRALAX) POWDER Mix 17grams into 4-8 oz of juice or water and take by mouth once daily for 2 weeks Herman Troy MD 11/09/13 0740 docume nted in this encounter Miscellaneous Notes Plan of Care - ONMANPREET SCAN WAKY - 11/11/2013 12:00 AM PDT D Triage [...] PASTOR | | | | | | [address] | | | | | | | [...] + | [facility] | [address] | [place], [place] | [phone] | | [facility] | | [address] | | | - LABORATORY | | | | + + + + + | [facility] | [address] | [place], [place] | | | [facility] | | [id number] [place] [address] | | | - LABORATORY | | [...] + | [facility] | [address] | [place], [place] | [phone] | | [facility] | | [address] | | | - LABORATORY | | | | + + + + + | [facility] | [address] | [place], [place] | | | [facility] | | [address], [facility] | | [...] + | [facility] | [address] | [place] | [phone] | | [facility] | | [address] | | | - LABORATORY | | | | + + + + + | [facility] | [address] | [place], [place] | | | [facility] | | [address] | | | - LABORATORY [...] | | | | | mmol/L | [facility] | | | | | | MEDICAL [...] + | [facility] | [address] | [place] | [phone] | | [facility] | | [address] | | | - LABORATORY | | | | + + + + + | [facility] | [address] | [place] | | | [facility] | | [address] | | | - LABORATORY [...] 12 | 7 - 18 mg/dL | [facility] | | | | | | [facility] | | | | | | MEDICAL | | | | | | CENTER - | | | | | | LABORATORY | | + + + + + + | Creatinine | 0.73 | 0.60 - 1.30 | [facility] | | | | | mg/dL | [facility] | | | | | | MEDICAL | | | | | | CENTER - | | | | | | LABORATORY | | + + + + + + | eGFR if not | >60Comment: GLOMERULAR | >=60 | [facility] | | | | FILTRATION | mL/min/1.73m2 | [facility] | | | GABONESE | RATE,ESTIMATED | | MEDICAL | | | | mL/min/1.76s1Yvyf than | | CENTER - | | [...] | | Total | | | [facility] | | [...] + | [facility] | [address] | [place] | [phone] | | [facility] | | [address] | | | - LABORATORY | | | | + + + + + | [facility] | [address] | [place] | | | [facility] | | [address], [facility] | | [...] | | Lymphocytes | | K/uL | [facility] | | | | | | MEDICAL | | | | | | CENTER - | | | | | | LABORATORY | | + + + + + + | Absolute | 0.60 | 0.00 - 1.00 | [facility] | | | Monocytes | | K/uL | [facility] | [...] | | Basophils | | K/uL | [facility] | [...] [address] | [place] | [phone] | | [facility] | | [address] | | | - LABORATORY | | | | + + + + + | [facility] | [address] | [place] | | | [facility] | | [address] | | | - LABORATORY [...] | | | Escherichia coli | | [facility] | | | | | | MEDICAL | | | | | | CENTER - | | | | | | LABORATORY | | + + + + + + | Culture | >100,000 CFU/ml | | [facility] | | | | Enterococcus | | [facility] | | | | faecalisComment: | | [...] + | [facility] | [address] | [place] | [phone] | | [facility] | | [address] | | | - LABORATORY | | | | + + + + + | [facility] | [address] | [place], [place] | | | [facility] | | [address] | | | - LABORATORY [...] | | Urine | | Yellow | [facility] | | | | | | MEDICAL [...] - 1.030 | [facility] | | | [place], | | | [facility] | | [...] + | [facility] | [address] | [place], [place] | [phone] | | [facility] | | [address] | | | - LABORATORY | | | | + + + + + | [facility] | [address] | [place], [place] | | | [facility] | | [address], [facility] | | [...] + | MISCELLANEOUS LAB | | | [phone] | + +---------+ + + | MISCELANIOUS LAB | | | [phone] | + +---------+ + + documented in [...]
--- OUTSIDE RECORDS SUMMARY | ~2019-09-23 | XMS | Encounter Summary ---
Demographics + + + | Address | [address] | | | [place] [address] | + + + | Home Phone [...] Author | [facility] | | | and Narenana | + + + | Organization | [facility] | | | and [...] [place] | | | | | [address] | | + + + + + Care Team Providers + +------+ + | Care Podiatry Doctor Name | Role | Phone | + [...] + + | 11/24/ | Emergency | [facility] | [place] | Fibula fracture, | | 2014 | | MED CTR EM[facility]Y | Eliu Garcia MD [address] | left, closed, | | | | CENTER [address] | [address] | initial encounter | | | | [place] | [facility] [place] [address] | (Primary Dx); Left | | | | [address] | [phone] | knee sprain, initial | | | | [phone] | | encounter | +--------+ + + [...] | 0 | / | | | (MYCOSTATIN) [id number] | | | | 14 | | [...] might be differe nt from the original. [facility] Martinez Abbasi II Emergency Department Encounter Note [address] [place] [address] PCP:Edwar Wilhelm PA-C [phone] CHIEF COMPLAINT Chief Complaint Patient presents with Ankle Injury Knee Injury ED Room: ED09/ED09 [facility] Mratinez Abbasi II is a 44 y.o. male [...] up with Edwar Wilhelm PA-C. Specialty: Physician Hose Tester-Medical Contact information: [address] [place] [address] Eliu Jacob MD 11/24/14 1230 do cumented in this encounter Miscellaneous Notes ED Triage Notes - Peg Painting RN - 11/24/2014 11:48 AM PDTLeft ankle [...] [place] | | | | | | [address] | | | | | | | [...]
--- OUTSIDE RECORDS SUMMARY | ~2019-09-23 | XMS | Encounter Summary ---
Demographics + + + | Address | [address] | | | [place] [address] | + + + | Home Phone [...] | Author | [facility] | | | and Narenana | + + + | Organization | [facility] | | [...] [place] | | | | | [address] | | + + + + + Care Team Providers + +------+ + | Care Blocking Machine Operator Name | Role | Phone [...] | | | | function | | [place], | | | | | [place]astro[place] | | [place] [address] | | | | | geal reflux | | Phone: | | | | | disease | | [phone] | | | | | without | | Fax: | | | | | esophagitis | | [phone] | | | | | Abdominal | [...] | | | | | | | [place] | | | | | | | [...] + + | 12/19/ | Hospital | [facility] | Jonathan Avendaño MD | Dysphagia (Primary | | 2015 | Encounter | MED CTR MP INTRA OP | [address] | Dx); | | | | [address] | [place], [place] | Gastroesophageal | | | | [place], [place] | [address] | reflux disease | | | | [address] | [phone] | without esophagitis | | | | [phone] | | | +--------+ + + + [...] the physician who did your procedure at [phone] if you have any questions or experience any of the following: ? Increasing abdominal pain, nausea, or vomiting. ? Chills and fever over 101F. ? New abdominal swelling or bloating. ? Signs of rectal bleeding (black or red stool). If you cannot get a hold of your physician, then call the [facility] [phone] . If necessary, report to the Emergency Department at [facility]. Quit smoking: If you smoke or [...] 0 | 03/22/19 | | | (MYCOSTATIN) [id number] | | | | 14 | | [...] Jonathan Avendaño MD at 12/19/2014 12:13 PM Jonathan Stallworth MD - 12/11/2014 5:53 PM PDT Subjective: [...] [place] | | | | | | [address] | | | | | | | [...] 12/19/2014 | PROVATION | | 11:46 AMMRN: [id number] #: [id number] of : | | | 1970Admit Type: AmbulatoryAge: 44Room: [facility] 02Gender: MaleNote | | | Status: FinalizedAttending MD: Jonathan Avendaño, [facility]cedure: | | | Upper GI endoscopyIndications: Dyspepsia, Dysphagia, | | | Suspected esophageal reflux, NauseaProviders: Jonathan Kang | | | MD Jarocho, Shana Love RN, Karie Vasquez | | | Sridhar, Bdc Manager, Blane Tompkins MD (Anesthesia | | | [...] the | | | anesthesiologist and the serology technician in the pre-procedure area in the [...] Scope In: 11:58:14 AMScope Out: 12:04:18 PM [place] | | | [facility], [address] [place] [address] | | | [phone] | | | - Regular diet. | [...] |Scope Out: 12:04:18 PM | | | [facility], [address] [facility], [place], [place] | | | [address] | | + + -+ + +---------+ [...] for | | | increased epithelial eosinophils. JVR:[facility]:C2NR GROSS | | | DESCRIPTION: A. The specimen labeled "Bretteleazarnaida Martinez [place]" and | | | designated "duodenum on the requisition," is received in formalin and | | | consists of three pink-bailey color tissue fragments, 0.2 to 0.4 cm. | | | All into (A1). B. The specimen labeled "BretteleazarMartinez pascal II" | | | and designated "gastric [...] cm. All | | | into (C1). yyt:JVR:[facility] PERFORMING LABORATORY: Tissue processing | | | and slide preparation were performed by [facility], [address] | | [facility], [address], [place] [address] (Basket Maker: Krishna Miranda M.D. CLIA#: [id number]). Professional interpretation was | | | performed by [facility], [facility] | | | Branch, [address], [place] [address] (Basket Maker: | | | Krishna Miranda M.D.; CLIA#: [id number]). Diagnostician: Krishna Woods | | Allan Miranda MD Pathologist Electronically [...]
--- OUTSIDE RECORDS SUMMARY | ~2019-09-23 | XMS | Encounter Summary ---
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 [place] | [phone] | | [facility] | | [address] | | | - LABORATORY | | | | + + + + + | [facility] | [address] | [place] | | | [facility] | | [address], [facility] | [...] | Negative for MRSA by | | [facility] | | | | chromogenic agar method | | [facility] | | | [...] + | [facility] | [address] | [place] | [phone] | | [facility] | | [address] | | | - LABORATORY | | | | + + + + + | [facility] | [address] | [place] | | | [facility] | | [address] | | | - LABORATORY | [...] + | [facility] | [address] | [place] | [phone] | | [facility] | | [address] | | | - LABORATORY | | | | + + + + + | [facility] | [address] | [place] | | | [facility] | | [address] | | | - LABORATORY | [...] [address] | [place] | [phone] | | [facility] | | [address] | | | - LABORATORY | | | | + + + + + | [facility] | [address] | [place] | | | [facility] | | [address], [facility] | [...] | | | | mmol/L | [facility] | | | | | | MEDICAL [...] + | [facility] | [address] | [place], [place] | [phone] | | [facility] | | [address] | | | - LABORATORY | | | | + + + + + | [facility] | [address] | [place], [place] | | | [facility] | | [address] [place] [address] | | | - LABORATORY | | [...] ST. | [address] | [place] | | | [facility] | | [address] | | | - BLOOD BANK | [...] + | MISCELLANEOUS LAB | | | [phone] | + +---------+ + + | MISCELANIOUS LAB | | | [phone] | + +---------+ + + Culture, Urine [...] + | [facility] | [address] | [place], [place] | [phone] | | [facility] | | [address] | | | - LABORATORY | | | | + + + + + | [facility] | [address] | [place], [place] | | | [facility] | | [address] [place] [address] | | | - LABORATORY | | [...] - 1.030 | [facility] | | | [place], | | | [facility] | | [...] + | [facility] | [address] | [place] | [phone] | | [facility] | | [address] | | | - LABORATORY | | | | + + + + + | [facility] | [address] | [place], [place] | | | [facility] | | [address], [facility] | [...] + | [facility] | [address] | [place], [place] | [phone] | | [facility] | | [address] | | | - LABORATORY | | | | + + + + + | [facility] | [address] | [place], [place] | | | [facility] | | [address] | | | - LABORATORY [...] + | [facility] | [address] | [place] | [phone] | | [facility] | | [address] | | | - LABORATORY | | | | + + + + + | [facility] | [address] | [place] | | | [facility] | | [address], [facility] | [...] Culture | Gram Negative Rods | | [place] | | | | | | ST. [...] bacilli. Please see | [facility] | | [id number] for ID and sensitivity. | [facility] | | | [facility] | | | - LABORATORY | + + + + + + + + | Performing | Address | City/State/Zipcode | Phone Number | | Organization | | | | + + + + + | [facility] | [address] | [place], [place] | [phone] | | [facility] | | [address] | | | - LABORATORY | | | | + + + + + | [facility] | [address] | [place], [place] | | | [facility] | | [address] [place] [address] | | | - LABORATORY | | [...] (H) | 7 - 18 mg/dL | [facility] | | | | | | [facility] | | | | | | MEDICAL | | | | | | CENTER - | | | | | | LABORATORY | | + + + + + + | Creatinine | 2.23 (H) | 0.60 - 1.30 | [place] | | | | | mg/dL | [facility] | | | | | | MEDICAL | | | | | | CENTER - | | | | | | LABORATORY | | + + + + + + | eGFR if not | 32 (L)Comment: | >=60 | [place] | | | | GLOMERULAR FILTRATION | mL/min/1.73m2 | [facility] | | | [place] | RATE,ESTIMATED | | MEDICAL | | | | mL/min/1.50o6Oovo than | | CENTER - | | [...] + | [facility] | [address] | [place], [place] | [phone] | | [facility] | | [address] | | | - LABORATORY | | | | + + + + + | [facility] | [address] | [place], [place] | | | [facility] | | [address] | | | - LABORATORY | [...] 3.28 (H) | 0.90 - 1.10 | [facility] [...] [address] | [place] | [phone] | | [facility] | | [address] | | | - LABORATORY | | | | + + + + + | [facility] | [address] | [place] | | | [facility] | | [address] | | | - LABORATORY | [...] | | | Cells | | | [facility] | | [...] + | [facility] | [address] | [place], [place] | [phone] | | [facility] | | [address] | | | - LABORATORY | | | | + + + + + | [facility] | [address] | [place], [place] | | | [facility] | | [address], [facility] | [...] 20 mEq/L (D5 02/28 | | 14 7:01 | | mL/hr [...] | t Upper | | Intramuscular, ONCE, Mon07/05/13 | | PM PDT | | | [...]
--- OUTSIDE RECORDS SUMMARY | ~2019-09-23 | XMS | Encounter Summary ---
Demographics + + + | Address | [address] | | | [place] [address] | + + + | Home Phone | | + + + | Preferred Language | Unknown | + + + | Marital Status | Single | + + + | Advent Affiliation | 1074 | + + + | Race | Unknown | + + + | Ethnic Group | Unknown | + + + Author + + + | Author | [facility] | | | and Narenana | + + + | Organization | [facility] [...] [place] | | | | | [address] | | + + + + + Care Team Providers + +------+ + | Care A Class Lineman Name | Role | Phone | + [...] + + | 08/19/ | Office | [facility] | Chris Priest, | 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 Job ID# [id number] signed by Chris Priest MD at 08/19/2013 5:47 PM Jennifer Estrada RN - 08/19/2013 4:39 PM PDTC/o bilat leg spasms/spasticity, currently taking 2 tablets bacl ofen tid, but stated that rx has not being helping. Waiting for insurance to approve PT. OT therapy will start next week. P M Chris Ware MD - 08/19/2013 12:00 AM PDT [facility] [address] [place] [address] [id number] FAX: [phone] OFFICE VISIT PHYSICAL MEDICINE REHABILITATION PROGRESS NOTE [...] Mr. Abbasi requires Stephanie lift for transfers. [facility] r lift not available here in the [...] health physical therapy as well. Mr. Abbasi nee ds physical therapy. He definitely should have [...] lower extremities. Approximately 30 minutes was spent [id number] today with Mr. Abbasi, over half of which was spent formulating and discussing his medical treatment plan. Thank you for allowing me to be involved in the care of your patient. If you have any quest ions regarding the care of Mr. Abbasi, please do not hesitate to call. Chris Priest Jr, MD GEM / PAP JOB #: [id number] cc: JANIE Byrnes-C P DTdocumented in this [...] [place] | | | | | | [address] | | | | | | | [...]
--- OUTSIDE RECORDS SUMMARY | ~2019-09-23 | XMS | Encounter Summary ---
Demographics + + + | Address | [address] | | | [place] [address] | + + + | Home Phone [...] | Author | [facility] | | | and Narenana | + + + | Organization | [facility] | [...] [place] | | | | | [address] | | + + + + + Care Team Providers + +------+ + | Care Drapery Seamstress Name | Role | Phone | + [...] | | | OP [address] | [place], [place] | | | | | [place], [place] | [address] | | | | | [address] | | | | | | [phone] | | | +--------+ + + + [...] Ren, PT - 03/03/2015 10:44 AM [facility] OP [address] [place] [address] Cancellation/No Show Date: 03/03/2015 Patient Information Patient [...] [place] | | | | | | [address] | | | | | | | | +--------+---------+ + + + documented as of this encounter Visit Diagnoses Not on filedocumented in this encounter"
--- OUTSIDE RECORDS SUMMARY | ~2019-09-23 | XMS | Encounter Summary ---
Demographics + + + | Address | [address] | | | [place] [address] | + + + | Home Phone [...] + | Author | [facility] | | | and Narenana | + + + | Organization | [facility] | | | [...] [place] | | | | | [address] | | + + + + + Care Team Providers + +------+ + | Care Multimedia Specialist Name | Role | Phone | + +------+ + | Edwar Wilhelm PA-C | PCP | | + +------+ + Encounter Details +--------+ + + + + | Date | Type | Department | Care Team | Description | +--------+ + + + + | 03/02/ | Hospital | [facility] | Chase Montalvo, | | | 2017 | Encounter | [facility] | [address] | | | | | [address] | [address] | | | | | [place], [place] | [place] [address] | | | | | [address] | [phone] | | | | | [phone] | | | +--------+ + + + [...] 0 | 03/22/19 | | | (MYCOSTATIN) [id number] | | | | 14 | | [...] Date of Service: 03/02/16 1016 Status: Signed Salesperson Handbags: Steffany Wiseman RN (Registered Nurse) Patient discharged [...] Date of Service: 03/02/16 0752 Status: Signed Salesperson Handbags: Chase Montalvo MD (Physician) [facility] Service: Urology Initial Consult Note Patient: Martinez [...] had a couple of occasions with a 16-Honduran catheter wherein they became clogged with m ucus, but these were managed at that time. He is otherwise doing well. He is not on any bloo d thinners. He has had no previous abdominal surgeries. REVIEW OF OUTSIDE RECORDS Summary of pertinent findings: to be scanned in. Previously with [address] Renny leroy. PMH: CVA [...] Date of Service: 03/02/16 0754 Status: Signed Salesperson Handbags: Chase Montalvo MD (Physician) [facility] Service: Urology Operative Note Pre-operative Diagnosis: Neurogenic bladder Post-operative Diagnosis: Same Procedure(s): Cystoscopy with punch suprapubic tube placement Surgeon: Chase Montalvo MD Distillation Operator Helper(s): none Anesthesia: General LMA Estimated Blood Loss: [...] The dilator was removed and an 18 greenlandic catheter was advanced through the sheath and [...] well. Condition: Stable Chase Montalvo MD 03/02/2016 documente d in this encounter Plan of Treatment +--------+---------+ + + + | Date | Type | Specialty | Care Team | Description | +--------+---------+ + + + | 09/23/ | Office | Physical Medicine | Chris Priest, | | | 2019 | Visit | and Rehabilitation | MD Margaux Forrester | | | | | | [place] | | | | | | [address] | | | | | | | | +--------+---------+ + + + documented as of this encounter Visit Diagnoses Not on filedocumented in this encounter
--- OUTSIDE RECORDS SUMMARY | ~2019-09-23 | XMS | Encounter Summary ---
Demographics + + + | Address | [address] | | | [place] [address] | + + + | Home Phone [...] [facility] | | | and Narenana | + + + | Organization | [facility] | | [...] [place] | | | | | [address] | | + + + + + Care Team Providers + +------+ + | Care Fashion Illustrator Name | Role | Phone | + [...] | | Chris Garcia MD | - [facility] | | | Required | Rehabilitatio | Quadriplegia | [address] | [address] | | | | n | ([facility]) | [address] | [address] | | | | | | [place], | [place], | | | | | | [place] [address] | [place] [address] | | | | | | Phone: | Phone: | | | | | | [phone] | [phone] | | | | | | Fax: | Fax: | | | | | | [phone] | [phone] | +--------+ + + + + + [...] + + | 12/23/ | Telephone | [facility] | Chris Priest, | Referral | | 2014 | | PHYSIATRY [address] | MD [address] | | | | | [address] | [place] | | | | | [place] | [address] | | | | | [address] | | | | | | [phone] | | | +--------+ + + + [...] Lauren Troy RN - 12/23/2014 3:21 PM [facility] office called to gretchen vann this request. If they call back please obtain a fax number to send chart notes to. Jamilah ctronically signed by Lauren Troy RN at 12/23/2014 3:22 PM PDTTelephone Encounter - Radha bashir Amelia Landry - 12/23/2014 11:05 AM PDTReceived a call from Martinez's PCP's office. They state that they had placed an order for physical therapy for Martinez for education on how to use the standing frame that was ordered by Dr. Priest. They were contacted by the physical therapy d epartboogie and told that they would need to [...] [place] | | | | | | [address]692 | | | | | | | [...]
--- OUTSIDE RECORDS SUMMARY | ~2019-09-23 | XMS | Encounter Summary ---
Demographics + + + | Address | [address] | | | [place] [address] | + + + | Home Phone [...] | Author | [facility] | | | and Narenana | + + + | Organization | [facility] | [...] [place] | | | | | [address] | | + + + + + Care Team Providers + +------+ + | Care Sales Coordinator Name | Role | Phone | [...] | | | | function | | [place], | | | | | [place]astro[place]oph[place] | | [place] [address] | | | | | geal reflux | | Phone: | | | | | disease | | [phone] | | | | | without | | Fax: | | | | | esophagitis | | [phone] | | | | | Abdominal | [...] | | | | | | | [place] | | | | | | | [...] + + | 12/19/ | Surgery | [facility] | Jonathan Avendaño MD | EGD - PT IS | | 2014 | | MED CTR MP INTRA OP | [address] | PARAPLEGIC | | | | [address] | [place], [place] | | | | | [place], [place] | [address] | | | | | [address] | [phone] | | | | | [phone] | | | +--------+---------+ + + + [...] the physician who did your procedure at [phone] if you have any questions or experience any of the following: ? Increasing abdominal pain, nausea, or vomiting. ? Chills and fever over 101F. ? New abdominal swelling or bloating. ? Signs of rectal bleeding (black or red stool). If you cannot get a hold of your physician, then call the [facility] [phone] . If necessary, report to the Emergency Department at [facility]. Quit smoking: If you smoke or have [...] 0 | 03/22/19 | | | (MYCOSTATIN) [id number] | | | | 14 | | [...] | | | | | | [place] | | | | | | [address] | | | | | | | [...] 12/19/2014 | [facility] | | 11:46 AMMRN: [id number] #: [id number] of : | | | 1970Admit Type: AmbulatoryAge: 44Room: [facility] 02Gender: MaleNote | | | Status: FinalizedAttending MD: Jonathan Avendaño, [facility]cedure: | | | Upper GI endoscopyIndications: Dyspepsia, Dysphagia, | | | Suspected esophageal reflux, NauseaProviders: Jonathan Kang | | | MD Jarocho, Shana Love RN, Karie Vasquez | | | Sridhar, Video Tape Transferrer, Blane Tompkins MD (Anesthesia | | | Staff)Referring MD: JANIE Boogie (Referring | | | )Medicines: Monitored Anesthesia CareComplications: | | | No [...] the | | | anesthesiologist and the ecologist technician in the pre-procedure area in the [...] Scope In: 11:58:14 AMScope Out: 12:04:18 PM [place] | | | [facility], [address] [place] [address] | | | [phone] | | | - Regular diet. | [...] |Scope Out: 12:04:18 PM | | | [facility], [address] [place], [place] | | | [address] | | + + -+ + +---------+ [...] cm. All | | | into (C1). yyt:PhilVR:[facility] PERFORMING LABORATORY: Tissue processing | | | and slide preparation were performed by [facility], [address] | | [facility], [address], [place] [address] (Cna: Krishna | | Chuck Miranda M.D. CLIA#: [id number]). Professional interpretation was | | | performed by [facility], [facility] | | | Branch, [address], [place] [address] (Cna: | | | Krishna Miranda M.D.; CLIA#: [id number]). Diagnostician: Krishna | | | V Ruben LOERA Pathologist Electronically Signed 12/22/2014 | | + [...]
--- OUTSIDE RECORDS SUMMARY | ~2019-09-23 | XMS | Encounter Summary ---
Demographics + + + | Address | [address] | | | [place] [address] | + + + | Home Phone [...] | Author | [facility] | | | and Narenana | + + + | Organization | [facility] | [...] [place] | | | | | [address] | | + + + + + Care Team Providers + +------+ + | Care Blender/Braze Applicator Name | Role | Phone | + [...] | | | | OP [address] | [place], [place] | | | | | [place], [place] | [address] | | | | | [address] | | | | | | [phone] | | | +--------+ + + + [...] Ren, PT - 04/10/2015 11:24 AM [facility] OP [address] [place] [address] Cancellation/No Show Date: 04/10/2015 Patient Information Patient [...] | | | | | [place] | | | | | | [id number] | | | | | | | | +--------+---------+ + + + documented as of this encounter Visit Diagnoses Not on filedocumented in this encounter"
--- OUTSIDE RECORDS SUMMARY | ~2019-09-23 | XMS | Encounter Summary ---
Demographics + + + | Address | [address] | | | [place] [address] | + + + | Home Phone [...] + | Author | [facility] | | | and Narenana | + + + | Organization | [facility] | | | and [...] [place] | | | | | [address] | | + + + + + Care Team Providers + +------+ + | Care Coding Team Lead Name | Role | Phone | + +------+ + | Edwar Wilhelm PA-C | PCP | | + +------+ + Encounter Details +--------+ + + + + | Date | Type | Department | Care Team | Description | +--------+ + + + + | 07/09/ | Hospital | [facility] | Johnny Rosales, | | | 2013 | Encounter | MED CTR ACUTE | PT [address] | | | | | PHYSICAL THERAPY | [place], [place] | | | | | [address] [place] | [address] | | | | | [place] [address] | | | | | | [phone] | | | +--------+ + + + [...] 0 | 03/22/19 | | | (MYCOSTATIN) [id number] | | | | 14 | | [...] 09/23/ | Office | Physical Medicine | Priest, Chris E A, | | | 2020 | Visit | and Rehabilitation | [address] | | | | | | [place] | | | | | | [address] | | | | | | | | +--------+---------+ + + + documented as of this encounter Visit Diagnoses Not on filedocumented in this encounter"
--- OUTSIDE RECORDS SUMMARY | ~2019-09-23 | XMS | Encounter Summary ---
Demographics + + + | Address | [address] | | | [place] [address] | + + + | Home Phone [...] | Author | [facility] | | | and Narenana | + + + | Organization | [facility] | | | and [place] | + [...] [place] | | | | | [address] | | + + + + + Care Team Providers + +------+ + | Care Shell Sieve Operator Name | Role | Phone | [...] | | | | OP [address] | [place], [place] | | | | | [place], [place] | [address] | | | | | [address] | | | | | | [phone] | | | +--------+ + + + [...] Ren, PT - 05/17/2016 10:12 AM [facility] OP [address] [place] [address] Physical Therapy Discharge Note This discharge is [...] [place] | | | | | | [address] | | | | | | | | +--------+---------+ + + + documented as of this encounter Visit Diagnoses Not on filedocumented in this encounter"
--- OUTSIDE RECORDS SUMMARY | ~2019-09-23 | XMS | Encounter Summary ---
Demographics + + + | Address | [address] | | | [place] [address] | + + + | Home Phone [...] + | Author | [facility] | | | and Narenana | + + + | Organization | [facility] | | | and [...] [place] | | | | | [address] | | + + + + + Care Team Providers + +------+ + | Care Intake Rn Name | Role | Phone | [...] | Therapy / | Incomplete | Chris aGrcia MD | Pt Op [address] | | | Required | Rehabilitatio | quadriplegia | [address] | [place] | | | | n | at C[address] | [address] | [place], | | | | | level (HCC) | [place], | [place] [address] | | | | | Impaired | [place] [address] | Phone: | | | | | mobility and | Phone: | [phone] | | | | | ADLs | [phone] | Fax: | | | | | Procedures | Fax: | [phone] | | | | | pt eval | [phone] | | +--------+ + + + + + Encounter Details +--------+---------+ + + + | Date | Type | Department | Care Team | Description | +--------+---------+ + + + | 07/01/ | Office | [facility] | Chris Priest, | Impaired mobility | | 2016 | Visit | MED CTR THERAPY PT | MD [address] | and activities of | | | | OP [address] | [place] | daily living | | | | [place] | [address] | (Primary Dx); | | | | [address] | | Impaired functional | | | | [phone] | Tori Luis, PT | mobility, balance, | | | | | [address] | gait, and endurance; | | | | | [place] | Quadriplegia, | | | | | [address] | C5-C7, incomplete | | | | [...] might be different fro m the original. [facility] THERAPY PT OP [address] [place] [address] Physical Therapy Daily Treatment Note Date: 07/02/2015 [...] Rehab Precautions Office Visit from 02/23/2015 in [facility] TH[facility] PT OP Rehab Precautions Precautions Spinal, Cervical Rehab Learning Style Office Visit from 02/23/2015 in [facility] PT OP Learning Style Patient's Optimum Learning Style listening, reading, observation, performance of task Start Time: 1610 Stop time: 1700 Duration: 50 minutes Timed Treatment Codes: 50 minutes # of PT Visits to Date: 7 Subjective: Call made to in home medical / [place]- Letter of Medical Necessity sent to [facility] 06/30/15. I made a [...] [place] | | | | | | [address] | | | | | | | [...]
--- OUTSIDE RECORDS SUMMARY | ~2019-09-23 | XMS | Encounter Summary ---
Demographics + + + | Address | [address] | | | [place] [address] | + + + | Home Phone [...] | Author | [facility] | | | and Narenana | + + + | Organization | [facility] | | | and [place] [...] [place] | | | | | [address] | | + + + + + Care Team Providers + +------+ + | Care Communications Specialist Name | Role | Phone | + +------+ + | Edwar Wilhelm PA-C | PCP | | + +------+ + Encounter Details +--------+ + + + + | Date | Type | Department | Care Team | Description | +--------+ + + + + | 12/22/ | Hospital | [facility] | Jonathan Avendaño MD | Abdominal pain, | | 2015 | Encounter | MED CTR ULTRASOUND | [address] | right upper quadrant | | | | [address] [place] | [place], [place] | | | | | [place], [place] | [address] | | | | | [address] | [phone] | | | | | [phone] | | | | | | | [...] 0 | 03/22/19 | | | (MYCOSTATIN) [id number] | | | | 14 | | [...] [place] | | | | | | [address] | | | | | | | [...] RUQ pain, rule out hepatomegaly COMPARISON:None | . CHARY | | FINDINGS: Liver:The liver is of [...] | ultrasound. Dictated and Signed by: Fadi Torers MD | | | Electronically signed: 12/22/2014 [...] | + + + + + | [address] | [address] | [place] | [phone] | | [facility] | | [address] | | | - IMAGING | | | | + + + + + documented in this encounter Visit Diagnoses + + | Diagnosis | + + | Abdominal pain, right upper quadrant | + + documented in this encounter"
--- OUTSIDE RECORDS SUMMARY | ~2019-09-23 | XMS | Encounter Summary ---
Demographics + + + | Address | [address] | | | [place] [address] | + + + | Home Phone [...] | Author | [facility] | | | and Narenana | + + + | Organization | [facility] [...] | + + + + + | aJel Marquez | ECON | [address] | | | | | [place] | | | | | [address] | | + + + + + Care Team Providers + +------+ + | Care Information Systems Coordinator Name | Role | Phone | [...] + | 06/12/ | Telephone | [facility] | Chris Priest, | Other | | 2014 | | PHYSIATRY [address] | MD [address] | | | | | [address] | [place] | | | | | [place] | [address] | | | | | [address] | | | | | | [phone] | | | +--------+ + + + [...]
--- OUTSIDE RECORDS SUMMARY | ~2019-09-23 | XMS | Encounter Summary ---
Demographics + + + | Address | [address] | | | [place] [address] | + + + | Home Phone [...] + + + | Author | and [facility] | | | and [place]renana | + + + | Organization | and [facility] | | [...] [place] | | | | | [address] | | + + + + + Care Team Providers + +------+ + | Care Floor Care Specialist Name | Role | Phone | [...] + + | 03/03/ | Office | [facility] | Chris Priest, | Incomplete | | 2014 | Visit | PH[address]SIATRY [address] | MD [address] | quadriplegia at C6 | | | | [address] | [place] | level ([facility]) (Primary | | | | [place] [facility] [place] | [address] | Dx); Neurogenic | | | | [address] | | bowel; Neurogenic | | | | [phone] | | bladder; Spasm; | | | [...] office note has been dictated. Job ID# [id number] signed by Chris Priest MD at 03/03/2014 2:59 PM Chris Gould MD - 03/03/2014 12:00 AM PST PHYSICAL MEDICINE AND REHAB [address] [place] [address] FAX: [phone] OFFICE VISIT PHYSICAL MEDICINE REHABILITATION PROGRESS NOTE [...] injury. Greater than 40 minutes was spent [id number] today with Mr. Abbasi, over half of which was spent formulating and discussing his medical treatment plan. CC: Edwar Wilhelm PA-C. Chris Priest Jr, MD SCHOENCHEN / KMT JOB #: [id number] signed by Chris Priest MD at 03/04/2014 [...] [place] | | | | | | [id number] | | | | | | | [...]
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
--- OUTSIDE RECORDS SUMMARY | ~2019-09-23 | XMS | Encounter Summary ---
Demographics + + + | Address | [address] | | | [place] [address] | + + + | Home Phone [...] | Author | [facility] | | | and Narenana | + + + | Organization | [facility] | [...] [place] | | | | | [address] | | + + + + + Care Team Providers + +------+ + | Care Proration Clerk Name | Role | Phone | [...] | | | | function | | [place], | | | | | [place]astro[place] | | [place] [address] | | | | | geal reflux | | Phone: | | | | | disease | | [phone] | | | | | without | | Fax: | | | | | esophagitis | | [phone] | | | | | Abdominal | [...] | | | | | | | [place] | | | | | | | [...] + + | 12/19/ | Anesthesia | [facility] | Blane Tompkins | | | 2015 | Event | MED CTR MP INTRA OP | MD Abdulkadir [address] | | | | | [address] | [facility] | | | | | [place] | [place] [address] | | | | | [address] | [phone] | | | | | [phone] | | | +--------+ + + + [...] | | excoriation; Instructed to inform | Bbaita Ochoa, | User Epic | | | career technology teacher and check twice | RN | | [...] from the original. ANESTHESIA POSTANESTHESIA EVALUATION [facility] 44 y.o. male 1970 [id number] Procedure(s) EGD - PT IS PARAPLEGIC (N/A [...] signed by Blane Tompkins MD 12/19/2014 12:09 [facility] nesthesia Prepr ocedure Evaluation - Blane Tompkins MD - 12/16/2014 11:17 AM PDTFormatting of this no te might be different from the original. ANESTHESIA PREANESTHESIA EVALUATION [facility] II 44 y.o. male 1970 [id number] Procedure(s): EGD - PT IS PARAPLEGIC (N/A Mouth) Medical history, anesthesia, medications, allergy, NPO status verified histories reviewed. ECG reviewed. Labs reviewed. Review of Systems / Med History Anesthesia History No anesthesia complications. Cardiovascular (+) hypertension.(-) CAD, past [place], CHF. Exercise tolerance <4 METS. Pulmonary Negative [...] in th is encounter Plan of Treatment +--------+---------+ + + + | Date | Type | Specialty | Care Team | Description | +--------+---------+ + + + | 09/23/ | Office | Physical Medicine | Chris Priest, | | | 2019 | Visit | and Rehabilitation | [address] | | | | | | [place] | | | | | | [address] | | | | | | | [...]
--- OUTSIDE RECORDS SUMMARY | ~2019-09-23 | XMS | Encounter Summary ---
Demographics + + + | Address | [address] | | | [place] [address] | + + + | Home Phone [...] + | Author | [facility] | | | and Narenana | + + + | Organization | [facility] | | [...] [place] | | | | | [address] | | + + + + + Care Team Providers + +------+ + | Care Microfiche Camera Operator Name | Role | Phone | [...] | | | | | [address] | | | | | | [place], [place] | | | | | | [address] | | | | | | [phone] | | | +--------+ + + + [...] [place] | | | | | | [address] | | | | | | | | +--------+---------+ + + + documented as of this encounter Visit Diagnoses Not on filedocumented in this encounter
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
== END 2019-09-23 09:35 | disposition home or self-care (01) ==
LOC: ED 08:50
DX: T83.090A Other mechanical complication of cystostomy catheter, initial encounter (principal); Z91.030 Bee allergy status; Z79.899 Other long term (current) drug therapy; Z79.82 Long term (current) use of aspirin
CPT/HCPCS: 81001; 99283-25

== ENCOUNTER 2019-11-15 13:13 | Inpatient (IN) | payer MEDICARE, OTHER ==
[~2019-11-15] VITALS: Ht 177.8 cm; Wt 129.3 kg
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
--- OUTSIDE RECORDS SUMMARY | ~2019-11-15 | XMS | Encounter Summary ---
Demographics + + + | Address | [address] | | | [place] [address] | + + + | Home Phone | | + + + | Preferred Language | Unknown | + + + | Marital Status | Single | + + + | Yazidism Affiliation | 1074 | + + + | Race | or | + + + | Ethnic Group | Not or | + + + Author + + + | Author | [facility] | | | and [place] | + + + | Organization | [facility] | | | and [place] | + + + | Address | Unknown | + + + | Phone | Unavailable | + + + Support + + +---------+ + | Name | Relationship | Address | Phone | + + +---------+ + | Iraida Toure | ECON | Unknown | | + + +---------+ + | srinath Brettlalit | ECON | Unknown | | + + +---------+ + Care Team Providers + +------+ + | Care Vendor Relationship Manager Name | Role | Phone | + +------+ + | Edwar Wilhelm PA-C | PCP | | + +------+ + Encounter Details +--------+ + + + + | Date | Type | Department | Care Team | Description | +--------+ + + + + | 12/22/ | Hospital | [facility] | Jonathan Avendaño MD | Abdominal pain, | | 2015 | Encounter | [facility]OUND | [address] | right upper quadrant | | | | [address] | [place], [place] | | | | | [place] | [address] | | | | | [address] | [phone] | | | | | [phone] | | | | | | | Manuel Garduno, | | | | | | Technologist | | +--------+ + + + + Social History + +-------+ +--------+------+ | Tobacco Use | Types | Packs/Day | Years | Date | | | | | Used | | + +-------+ +--------+------+ | Never Smoker | | | | | + +-------+ +--------+------+ + +---+---+---+ | Smokeless Tobacco: | | | | | Current User | | | | + +---+---+---+ + + +---------+ + | Alcohol Use | Drinks/Week | oz/Week | Comments | + + +---------+ + | No | | | recovering alcoholic | + + +---------+ + + + + | Sex Assigned at | Date Recorded | | | | + + + | Not on file | | + + + documented as of this encounter Medications at Time of Discharge [...] 0 | 03/22/19 | | | (MYCOSTATIN) [id number] | | | | 14 | | [...] as of this encounter Plan of Treatment +--------+ + + + [...] [place] | | | | | | [id number] | | | | | | | | +--------+ + + + + documented as of this encounter Procedures + +--------+ + + + | Procedure Name | Priori | Date/Time | Associated Diagnosis | Comments | | | ty | | | | + +--------+ + + + | US ABDOMEN LIMITED | Routin | 12/22/2014 | Abdominal pain, | Results for this | | | e | 12:16 PM | right upper quadrant | procedure are in the | | | | PDT | | results section. | + +--------+ + + + documented in this encounter Results US Abdomen Limited (12/22/2014 12:16 PM PDT) + + | Specimen | + + | | + + + + + | Narrative | Performed At | + + + | LIMITED RIGHT UPPER QUADRANT ULTRASOUND: 12/22/2014 11:56 AM | [facility] | | CLINICAL HISTORY: RUQ pain, rule out hepatomegaly COMPARISON:None | [facility] | | FINDINGS: Liver:The liver is of normal echogenicity and echo | MEDICAL CENTER | | architecture. There is no intrahepatic biliary or venous dilation. No | - IMAGING | | focal hepatic abnormalities are present. Gallbladder:Gallbladder | | | shows normal contour with no wall thickening, pericholecystic fluid | | | or stone. CBD: Common bile duct measures 4.6 mm Pancreas:All parts | | | of the pancreas are seen and it shows normal echogenicity and | | | appearance. No pancreatic ductal dilation is seen. Right kidney:Right | | | kidney is also included on this examination. It shows normal | | | echogenicity and echo architecture. No hydronephrosis. Maximum | | | dimension is 10.8 cm Vasculature:Blood flow in the inferior vena | | | cava and hepatic veins is normal. Portal venous blood flow is normal | | | in pattern and direction. IMPRESSION -Normal right upper quadrant | | | ultrasound. Dictated and Signed by: Fadi Torres MD | | | Electronically signed: 12/22/2014 4:39 PM | | + + + + + | Procedure Note | + + | Gideon, Rad Results In - 12/22/2014 4:42 PM PDT LIMITED RIGHT UPPER QUADRANT | | ULTRASOUND: 12/22/2014 11:56 AMCLINICAL HISTORY: RUQ pain, rule out | | hepatomegalyCOMPARISON:NoneFINDINGS:Liver:The liver is of normal echogenicity and echo | | architecture. There is nointrahepatic biliary or venous dilation. No focal hepatic | | abnormalities arepresent.Gallbladder:Gallbladder shows normal contour with no wall | | thickening,pericholecystic fluid or stone.CBD: Common bile duct measures 4.6 | | mmPancreas:All parts of the pancreas are seen and it shows normal echogenicity | | andappearance. No pancreatic ductal dilation is seen.Right kidney:Right kidney is also | | included on this examination. It shows normalechogenicity and echo architecture. No | | hydronephrosis. Maximum dimension is 10.8cmVasculature:Blood flow in the inferior vena | | cava and hepatic veins is normal.Portal venous blood flow is normal in pattern and | | direction.IMPRESSION -Normal right upper quadrant ultrasound.Dictated and Signed by: | | Fadi Torres MD Electronically signed: 12/22/2014 4:39 PM | |Pancreas:All parts of the pancreas are seen and it shows normal echogenicity and | |appearance. No pancreatic ductal dilation is seen. | |Right kidney:Right kidney is also included on this examination. It shows normal | |echogenicity and echo architecture. No hydronephrosis. Maximum dimension is 10.8 | |cm | |Vasculature:Blood flow in the inferior vena cava and hepatic veins is normal. | |Portal venous blood flow is normal in pattern and direction. | | | |IMPRESSION -Normal right upper quadrant ultrasound. | | | |Dictated and Signed by: Fadi Torres MD | | Electronically signed: 12/22/2014 4:39 PM | + + + + + + + | Performing | Address | City/State/Zipcode | Phone Number | | Organization | | | | + + + + + | [facility] | [address] | [place] | [phone] | | [facility] | | [address] | | | - IMAGING | | | | + + + + + documented in this encounter Visit Diagnoses + + | Diagnosis | + + | Abdominal pain, right upper quadrant | + + documented in this encounter"
--- OUTSIDE RECORDS SUMMARY | ~2019-11-15 | XMS | Encounter Summary ---
Demographics + + + | Address | [address] | | | [place] [address] | + + + | Home Phone | | + + + | Preferred Language | Unknown | + + + | Marital Status | Single | + + + | Restorationist Affiliation | 1074 | + + + | Race | or | + + + | Ethnic Group | Not or | + + + Author + + + | Author | [facility] | | | and [place] | + + + | Organization | [facility] | | | and [...] Team Providers + +------+ + | Care Seo Manager Name | Role | Phone | + +------+ + | Karie Morin PA-C | PCP | | + +------+ + Reason for Visit Auth/Cert +--------+--------+ + + + + | Status | Reason | Specialty | Diagnoses / | Referred By | Referred To | | | | | Procedures | Contact | Contact | +--------+--------+ + + + + | | | | | | | +--------+--------+ + + + + Encounter Details +--------+ + + + + | Date | Type | Department | Care Team | Description | +--------+ + + + + | 10/18/ | Home Care | [facility] | Jennifer Laughlin RN | SN REPEAT VISIT | | 2019 | Visit | [facility] [address] | | | | | | [place] | | | | | | [address] | | | | | | [phone] | | | +--------+ + + + [...] + + + | Blood Pressure | 126/82 | 10/19/2019 11:00 AM | | | | | PDT | | + + + + + | Pulse | 75 | 10/19/2019 11:00 AM | | | | | PDT | | + + + + + | Temperature | 36.6 C (97.9 F) | 10/19/2019 11:00 AM | | | | | PDT | | + + + + + | Respiratory Rate | 19 | 10/19/2019 11:00 AM | | | | | PDT | | + + + + + | Oxygen Saturation | 98% | 10/19/2019 11:00 AM | room air | | | | PDT | | + + + + + | Inhaled Oxygen | - | - | | | Concentration | | | | + + + + + | Weight | - | - | | + + + + + | Height | - | - | | + + + + + | Body Mass Index | - | - | | + + + + + documented in this encounter Miscellaneous Notes Home Health - Jennifer Laughlin RN - 10/19/2019 10:45 AM PDTS. Patient admitted to for wo und care, stage 3 pressure ulcer to L buttocks B: Pt has history of quadriplegia due to spinal cord lesion. A: Patient is alert and oriented x4. Reports generalized pain. Patient upset because RN ananya wed up 15 minutes early. SN told patient I was already here in town, however, we could jana zhanele for different day, he states it was fine. SN told patient we give a generalized time, and if we are unable to make it at the time given we would call to notify. Patient agrees to SN to provide wound care. Wound care provided per POC patient tolerated well. Reinforce imp ortance to reposition every hour, he verbalized understanding. VSS. No new medication start ed, changed or discontinued. No falls and/ or injuries reported. Hancock patent draining clear , yellow urine. No issues reported. R: continue with POC 1) Are you or anyone you live with experiencing any of the following symptoms? no Fever or chills Cough (new or changed) Shortness of breath or difficulty breathing (new or changed) Fatigue (new or changed) Muscle or body aches (new or changed) New loss of taste or smell Sore throat New or unusual congestion or runny nose New or unusual headache Nausea or vomiting New or unusual diarrhea (review medical conditions, medications and othe r possible causes if this is the only symptom) 2) If yes, who is experiencing symptoms? 3) Have you or anyone in your household been tested and have results pending or have been d iagnosed with COVID-19? No 4) If visiting a health care facility, is the facility experiencing a COVID-19 outbreak? N/ A 5) Have you had close contact with someone tested for or diagnosed with COVID-19 in the las t 30 days? No 6) Have you or anyone you have had close contact with traveled outside of your state in the last 30 days? No Screening is: Negative Indicate positive screen if: Answer to any question 1-6 is yes. Consult with student accounts manager prior to visit.Electronically s igned by Jennifer Laughlin RN at 10/19/2019 4:58 PM PDTdocumented in this encounter Plan of Treatment +--------+ + [...] 2019 | Visit | and Rehabilitation | [address] | | | | | | [place] | | | | | | [id number] | | | | | | | | +--------+ + + + + documented as of this encounter Visit Diagnoses Not on filedocumented in this encounter Home Health Visit - Care Plan + + | Visit Type - SN - REPEAT VISIT | | Discipline - Alf | + + + + +--------+--------+-------+ + | Problem | Description | Start | Status | Goals | Interventio | | | | Date | | | ns | + + +--------+--------+-------+ + | HH Other Wound | Upper right back | | | - | 1 problem | | Disciplines: | scab healed over | | Active | | | | Alf | Left buttock hx of | 020 | | | interventio | | | pressure ulcer | | | | n | | | healed. | | | | scheduled/d | | | | | | | ocumented | | | | | | | in this | | | | | | | visit | + + +--------+--------+-------+ + | HH SHARED AT RISK | At risk for | | | - | 1 problem | | FOR PRESSURE ULCER | pressure ulcer | | Active | | | | Disciplines: | | 020 | | | interventio | | Alf | | | | | n | | | | | | | scheduled/d | | | | | | | ocumented | | | | | | | in this | | | | | | | visit | + + +--------+--------+-------+ + | HH SHARED | Depression | | | - | 1 problem | | DEPRESSION | | | Active | | | | Disciplines: | | 020 | | | interventio | | Alf | | | | | n | | | | | | | scheduled/d | | | | | | | ocumented | | | | | | | in this | | | | | | | visit | + + +--------+--------+-------+ + | HH SHARED PAIN | Pain | | | - | 1 problem | | Disciplines: | | | Active | | | | Alf | | 020 | | | interventio | | | | | | | n | | | | | | | scheduled/d | | | | | | | ocumented | | | | | | | in this | | | | | | | visit | + + +--------+--------+-------+ + | HH SN Urinary | Hancock catheter | | | - | 1 problem | | Elimination | | | Active | | | | Disciplines: | | 020 | | | interventio | | Alf | | | | | n | | | | | | | scheduled/d | | | | | | | ocumented | | | | | | | in this | | | | | | | visit | + + +--------+--------+-------+ + | Wound Management | Right buttock | | | - | 2 problem | | Disciplines: | | | Active | | | | Alf | | 020 | | | interventio | | | | | | | ns | | | | | | | scheduled/d | | | | | | | ocumented | | | | | | | in this | | | | | | | visit | + + +--------+--------+-------+ + + + +--------+--------+ + | Intervention | Associated | Status | Varian | Visit Notes | | | Problem/Goal | | ce | | + + +--------+--------+ + | HH WOUND TYPE | Problem: HH Other | | | | | Description: | Wound | Comple | | | | Instruct PT/CG in | | caren | | | | ways to prevent skin | | | | | | breakdown which | | | | | | includes frequent | | | | | | position changes, | | | | | | proper positioning | | | | | | to relieve pressure, | | | | | | careful skin | | | | | | assessment, hygiene | | | | | | and use of pressure | | | | | | relieving devices | | | | | | and provide teaching | | | | | | handout. Evaluate | | | | | | patient's skin | | | | | | integrity and | | | | | | general condition of | | | | | | skin. RN to assess | | | | | | PT/CG compliance | | | | | | with preventing | | | | | | pressure sores. | | | | | + + +--------+--------+ + | Pressure ulcer | Problem: HH SHARED | | | | | prevention | AT RISK FOR PRESSURE | Comple | | | | Description: | ULCER | caren | | | | Instruct PT/CG in | | | | | | ways to prevent skin | | | | | | breakdown which | | | | | | includes frequent | | | | | | position changes, | | | | | | proper positioning | | | | | | to relieve pressure, | | | | | | careful skin | | | | | | assessment, hygiene | | | | | | and use of pressure | | | | | | relieving devices | | | | | | and provide teaching | | | | | | handout. Evaluate | | | | | | patient's skin | | | | | | integrity and | | | | | | general condition of | | | | | | skin. RN to assess | | | | | | PT/CG compliance | | | | | | with preventing | | | | | | pressure sores. | | | | | + + +--------+--------+ + | Assess depression | Problem: HH SHARED | | | | | Description: | DEPRESSION | Comple | | | | Assess the patient | | caren | | | | for feeling down, | | | | | | depressed or | | | | | | hopeless. Assess | | | | | | for effectiveness of | | | | | | drug therapy for | | | | | | depression. | | | | | | Instruct patient the | | | | | | need to take | | | | | | prescribed | | | | | | medications for | | | | | | depression as | | | | | | ordered. Assess | | | | | | need for adjustments | | | | | | to medications for | | | | | | depression. Assess | | | | | | need for referral to | | | | | | [facility] for counseling | | | | | | for other mental | | | | | | health services. | | | | | + + +--------+--------+ + | Pain management | Problem: HH SHARED | | | | | Description: | PAIN | Comple | | | | Instruct PT/CG | | caren | | | | regarding pain | | | | | | management, | | | | | | providing teaching | | | | | | handout. Instruct | | | | | | PT/CG to take/ | | | | | | administer | | | | | | analgesics as | | | | | | ordered in | | | | | | sufficient quantity | | | | | | to relieve pain. | | | | | | RN to assess for | | | | | | pain characteristics | | | | | | including kind, | | | | | | location, response | | | | | | to activity, | | | | | | effectiveness of | | | | | | pain relief | | | | | | measures. RN will | | | | | | assess and verify | | | | | | effectiveness of | | | | | | pain medication and | | | | | | pain relief | | | | | | measures. | | | | | + + +--------+--------+ + | Assess and monitor | Problem: HH SN | | | | | urine for signs and | Urinary Elimination | Comple | | | | symptoms of | | caren | | | | infection | | | | | | Description: | | | | | | Requested orders | | | | | | from [facility] in | | | | | | [place] 10/11/19 | | | | | | for catheter change | | | | | | q2 weeks. Patient | | | | | | see's Dr Thomason | | | | | | [facility] in Urology. | | | | | | Supplies need to be | | | | | | ordered. [phone] | | | | | | [phone]. Karissa | | | | | | change. | | | | | + + +--------+--------+ + | Wound care | Problem: Wound | | | | | Description: | Management | Comple | | | | Requesting wound | | caren | | | | care order to | | | | | | include clean with | | | | | | wound cleanser, | | | | | | apply foam border | | | | | | dressing. Duo derm | | | | | | if needed. Weekly | | | | | | Skin prep to wound | | | | | | during wound care | | | | | + + +--------+--------+ + | Wound care | Problem: Wound | | | | | Description: | Management | Schedu | | | | pressure injury | | led | | | | right buttock: | | | | | | cleanse with normal | | | | | | saline or wound | | | | | | cleanser,apply | | | | | | hydroc olloid | | | | | | dressing, change | | | | | | every 7 days and prn | | | | | | displacement. | | | | | | Instruct family is | | | | | | s/s of infection to | | | | | | report to MD/RN. | | | | | | Patient has duoderm | | | | | | in the house if | | | | | | needed. | | | | | + + +--------+--------+ + documented in this encounter"
--- OUTSIDE RECORDS SUMMARY | ~2019-11-15 | XMS | Encounter Summary ---
Demographics + + + | Address | [address] | | | [place] [address] | + + + | Home Phone | | + + + | Preferred Language | Unknown | + + + | Marital Status | Single | + + + | Buddhism Affiliation | 1074 | + + + | Race | or | + + + | Ethnic Group | Not or | + + + Author + + + | Author | [facility] | | | and [place] | + + + | Organization | [facility] | | | and [place] | + + + | Address | Unknown | + + + | Phone | Unavailable | + + + Support + + +---------+ + | Name | Relationship | Address | Phone | + + +---------+ + | Iraida Toure | ECON | Unknown | | + + +---------+ + | srinath Abbasi | ECON | Unknown | | + + +---------+ + Care Team Providers + +------+ + | Care Insurance Office Manager Name | Role | Phone | + +------+ + | Edwar Wilhelm PA-C | PCP | | + +------+ + Reason for Visit +--------+--------+ + | Reason | Onset | Comments | | | Date | | +--------+--------+ + | Other | 10/01/ | | | | 2014 | | +--------+--------+ + Encounter Details +--------+ + + + + | Date | Type | Department | Care Team | Description | +--------+ + + + + | 10/01/ | Telephone | [facility] | Chris Priest, | Other | | 2014 | | PHYSIATRY [address] | [address] | | | | | [address] | [place] | | | | | [place] | [address] | | | | | [address] | | | | | | [phone] | | | +--------+ + + + [...] + + documented as of this encounter Miscellaneous Notes Telephone Encounter - Lauren Troy RN - 10/06/2014 10:37 AM PDTRx completed and faxed. elephone Encounter - Risa Lund - 10/01/2014 2:07 PM PDTPatient is requesting a new RX for a s tanding station be sent to [facility]. documented in this encounter Plan of Treatment +--------+ [...] [place] | | | | | | [id number] | | | | | | | | +--------+ + + + + documented as of this encounter Visit Diagnoses Not on filedocumented in this encounter"
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
--- OUTSIDE RECORDS SUMMARY | ~2019-11-15 | XMS | Encounter Summary ---
Demographics + + + | Address | [address] | | | [place] [address] | + + + | Home Phone | | + + + | Preferred Language | Unknown | + + + | Marital Status | Single | + + + | Congregational Affiliation | 1074 | + + + | Race | or | + + + | Ethnic Group | Not or | + + + Author + + + | Author | [facility] | | | and [place] | + + + | Organization | [facility] | | [...] Team Providers + +------+ + | Care Sanitation Lead Name | Role | Phone | + [...] | +--------+ + + + + | 10/10/ | Home Care | [facility] | Silva Singh RN | CASE COMMUNICATION | | 2020 | Visit | [address] | | | | | | [place] | | | | | | [address] | | | | | | [phone] | | | +--------+ + + + [...] Services | Kayla Dior, | | | 2020 | Visit | | RN | | [...] Physical Medicine | Chris Priest, | | 2019 | Visit | and Rehabilitation | MD [address] | | | | | | [place] | | | | | | [address] | | | | | | | | +--------+ + + + + documented as of this encounter Visit Diagnoses Not on filedocumented in this encounter"
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
--- OUTSIDE RECORDS SUMMARY | ~2019-11-15 | XMS | Encounter Summary ---
Demographics + + + | Address | [address] | | | [place] [address] | + + + | Home Phone | | + + + | Preferred Language | Unknown | + + + | Marital Status | Single | + + + | Nondenominational Affiliation | 1074 | + + + | Race | or | + + + | Ethnic Group | Not or | + + + Author + + + | Author | [facility] | | | and [place] | + + + | Organization | [facility] | | | [...] Team Providers + +------+ + | Care Beeswax Bleacher Name | Role | Phone | + +------+ + | Edwar Wilhelm PA-C | PCP | | + +------+ + Encounter Details +--------+ + + + + | Date | Type | Department | Care Team | Description | +--------+ + + + + | 07/09/ | Hospital | [facility] | Johnny Rosales, | | | 2013 | Encounter | MED CTR ACUTE | PT [address] | | | | | PHYSICAL THERAPY | [place], [place] | | | | | [address] [place] | [address] | | | | | [place] [address] | | | | | | [phone] | | | +--------+ + + + [...] 0 | 03/22/19 | | | (MYCOSTATIN) [id number] | | | | 14 | | [...] [place] | | | | | | [address] | | | | | | | | +--------+ + + + + documented as of this encounter Visit Diagnoses Not on filedocumented in this encounter"
--- OUTSIDE RECORDS SUMMARY | ~2019-11-15 | XMS | Encounter Summary ---
Demographics + + + | Address | [address] | | | [place] [address] | + + + | Home Phone | | + + + | Preferred Language | Unknown | + + + | Marital Status | Single | + + + | Anabaptism Affiliation | 1074 | + + + | Race | or | + + + | Ethnic Group | Not or | + + + Author + + + | Author | [facility] | | | and [place] | + + + | Organization | [facility] | | | [...] Team Providers + +------+ + | Care Overhead Crane Technician Name | Role | Phone | + +------+ + | Edwar Wilhelm PA-C | PCP | | + +------+ + Reason for Visit +--------+ + | Reason | Comments | +--------+ + | Spasms | bilat legs | +--------+ + Encounter Details +--------+---------+ + + + | Date | Type | Department | Care Team | Description | +--------+---------+ + + + | 08/19/ | Office | [facility] | Chris Priest, | Incomplete spinal | | 2013 | Visit | PHYSIATRY [address] | MD [address] | cord lesion at C5-C7 | | | | [address] | [place] | level, subsequent | | | | [place] | [address] | encounter (Primary | | | | [address] | | Dx); Pressure ulcer | | | | [phone] | | of buttock, | | | | | | unstageable, left | | | | | | ([facility]); Pressure | | | | | | ulcer, buttock, | | | | | | right, unstageable | | | | | | ([facility]); Abdominal | | | | | | spasms; Muscle spasm | | | | | | of both lower legs; | | | | | | Neurogenic bowel; | | | | | | Neurogenic bladder | +--------+---------+ + + + Social History [...] + + + | Blood Pressure | 140/80 | 08/19/2013 4:37 PM | | | | | PDT | | + + + + + | Pulse | 74 | 08/19/2013 4:37 PM | | | | | PDT | | + + + + + | Temperature | - | - | | + + + + + | Respiratory Rate | 16 | 08/19/2013 4:37 PM | | | | | PDT | | + + + + + | Oxygen Saturation | - | - | | + + + + + | Inhaled Oxygen | - | - | | | Concentration | | | | + + + + + | Weight | 88.5 kg (195 lb) | 08/19/2013 4:37 PM | | | | | PDT | | + + + + + | Height | 177.8 cm (5' 10") | 08/19/2013 4:37 PM | | | | | PDT | | + + + + + | Body Mass Index | 27.98 | 08/19/2013 4:37 PM | | | | | PDT | | + + + + + documented in this encounter Patient Instructions Patient Instructions Chris Priest MD - 08/19/2013 5:16 PM PDTA recommendations for [facility] nursing has been sent to Edwar Wilhelm PA-C A recommendation for physical therapy has been sent to Edwar Wilhelm PA-C Increase baclofen to 20 mg four times daily. Make sure to do pressure relief every 20 minutes while in chair and every 2 hours while in bed. Return to the clinic in one month. documented in this encounter Progress Notes Chris Priest MD - 08/19/2013 5:19 PM PDTThis office note has been dictated. Job ID# [id number] signed by Chris Priest MD at 08/19/2013 5:47 PM Jennifer Estrada RN - 08/19/2013 4:39 PM PDTC/o bilat leg spasms/spasticity, currently taking 2 tablets bacl ofen tid, but stated that rx has not being helping. Waiting for insurance to approve PT. OT therapy will start next week. P M Chris Ware MD - 08/19/2013 12:00 AM PDT PHYSICAL MEDICINE AND REHAB [address] [place] [id number] FAX: [phone] OFFICE VISIT PHYSICAL MEDICINE REHABILITATION PROGRESS NOTE CONSULT REQUESTED BY: Edwar Wilhelm PA-C. DATE OF SERVICE: August 19, 2013. 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 HISTORY OF PRESENT ILLNESS: Mr. Abbasi was last seen by me 07/17/2013. At that time, it w as noted that he had neurogenic bowel, neurogenic bladder. He had spasticity. He was starte d on tapering up dose of baclofen. He returns to the clinic today to review management of s ymptoms. When he was last seen, it was recommended that he see a urologist. Urology consult is still pending, but has been ordered. In regards to bowel program, the bowel continues to be con trolled using routine bowel program of daily suppositories and digital stimulation. In rega rds to skin care, he is concerned that he may have developed some pressure sores. He has a deep, reddish bruise over the ischium bilaterally. He is unaware of any pain in the region. He denies any autonomic dysreflexia symptoms. The skin is not opened up. There is no draina ge. He denies fever or chills. He believes that this may have occurred when he was in a sea caren position for too long in bed. In regards to spasticity control, he has tapered up baclofen. He is currently taking a tota l of 60 mg/day. He indicates that he has not noticed any significant change to the spasms t hat he has in the abdomen or the lower extremities. He denies any dysuria, fever, chills, o r foul- smelling urine. Currently bladder function seems to be doing well. ALLERGIES: BEE VENOM. CURRENT MEDICATIONS 1. Tylenol. 2. Albuterol. 3. Baclofen 10 mg 2 tablets 3 times per day. 4. Valium 5 mg 3 times per day. 5. Colace. 6. Senokot-S. 7. Marinol. 8. Gabapentin. 9. Midodrine 10 mg 3 times per day. 10. Omeprazole 20 mg daily. 11. Probiotic daily. 12. Senna p.r.n. 13. Coumadin 7.5 mg daily. REVIEW OF SYSTEMS Mr. Abbasi has incontinence of bowel or bladder. He indicates that he can feel when he is going to have a bowel movement. He requires suppository induced stimulation for routine mandeep wel movements. He denies fever, chills, nausea, vomiting. He does have 2 skin lesions over the buttocks, left and right. Denies any open skin wounds or drainage. Denies fever, chills , shortness of breath, chest pain. Denies lightheadedness, dizziness. He has occupational t herapy consult for shoulder pain. He has not yet been seen by physical therapy. All other r eview of systems negative. PHYSICAL EXAMINATION VITAL SIGNS: Heart rate 74, respiratory rate 16, blood pressure 140/80, weight 195 pounds, height 5 foot 10 inches. GENERAL: In no acute distress. Alert and oriented to person, place, time and situation. HE ENT: Extraocular muscles intact. Sclerae clear. NECK: Normal range of motion. Spurling's test negative. HEART: Regular rate and rhythm. No murmurs, no gallops. LUNGS: Clear to auscultation. No wheezing, no crackles. ABDOMEN: Nontender. Positive for bowel sounds. EXTREMITIES: Exam reveals no clubbing, cyanosis or edema. SKIN: I could not fully evaluate or appreciate ischial buttock wounds. Mr. Abbasi requires Stephanie lift for transfers. Hoye r lift not available here in the clinic. Rotating and lifting him in chair reveals unstagea ble pressure wound over ischium bilaterally. DATABASE: No new imaging or laboratory data available for review at this time. IMPRESSION 1. INCOMPLETE QUADRIPLEGIA, DYLAN B, LEVEL C6, ICD-9 V58.89. 2. BILATERAL PRESSURE ULCERS ON BUTTOCKS, ICD-9 707.05. 3. ABDOMINAL SPASMS AND MUSCLE SPASMS OF LOWER EXTREMITIES, ICD-9 789.00 and 728.85. 4. NEUROGENIC BOWEL, ICD-9 564.81. 4. NEUROGENIC BLADDER, ICD-9 596.54. PLAN: Mr. Abbasi should have home health nursing following managing monitoring his buttoc k pressure ulcers. They are not stageable at this time. I cannot fully evaluate them here i n the clinic. He needs to be seen in a location that has Stephanie lift for full evaluation. It is my recommendation that Mr. Abbasi temporarily have home health nursing come to the use once per week in order to monitor and stage his pressure ulcers over his buttocks. He i s advised to do pressure relief every 20 minutes while in a wheelchair, every 2 hours while in bed. He is instructed to try to keep pressure off the ischium as much as possible throu ghout the day. We discussed the goal would be for them to heal, dissolve without them ever opening up. We discussed that if wounds open that he will need to be seen in wound clinic. He will continue bowel management with digital stimulation and bowel suppositories the same time every day. He will continue current plan for bladder control. He has urology consult pending. It is my recommendation that he have home health physical therapy as well. Mr. Abbasi nekaren ds physical therapy. He definitely should have a standing frame in the home. He should be u p and in standing frame on a routine basis. Standing frame has been shown to reduce develop ment and risk of osteoporosis for those with quadriplegia. I would like him to be at least evaluated and see if he would tolerate this. Certainly, he needs physical therapy evaluatio n at this time. This was previously requested when he was seen by me, but does require appr oval through primary care provider. At this point, I have recommended that Mr. Abbasi fol low up with Edwar Wilhelm PA-C, his primary care provider, to discuss approval for phy sical therapy. In regards to spasticity control, we discussed the limitations medication has in controllin g spasticity, especially when it comes from a spinal cord injury. Will increase baclofen up to 20 mg 4 times per day. If spasticity persists in the future, may consider additional me dication such as tizanidine. Mr. Abbasi is not a good candidate for Botox chemodenervatio n because of widespread muscle spasms he is having in both lower extremities. Approximately 30 minutes was spent [id number] today with Mr. Abbasi, over half of which was spent formulating and discussing his medical treatment plan. Thank you for allowing me to be involved in the care of your patient. If you have any quest ions regarding the care of Mr. Abbasi, please do not hesitate to call. Chris Priest Jr, MD GEM / PAP JOB #: [id number] cc: JANIE Byrnes-C P KERWINdomichela in this encounter Plan of Treatment +--------+ [...] Visit | and Rehabilitation | [address] | | | | | | [place] | | | | | | [address] | | | | | | | | +--------+ + + + + documented as of this encounter Visit Diagnoses + + | Diagnosis | + + | Incomplete spinal cord lesion at C5-C7 level, subsequent encounter (HCC) - Primary | + + | Pressure ulcer of buttock, unstageable, left | + + | Pressure ulcer, buttock, right, unstageable (HCC) Pressure ulcer, buttock | + + | Abdominal spasms Abdominal pain, unspecified site | + + | Muscle spasm of both lower legs Spasm of muscle | + + | Neurogenic bowel | + + | Neurogenic bladder Neurogenic bladder, NOS | + + documented in this encounter
--- OUTSIDE RECORDS SUMMARY | ~2019-11-15 | XMS | Encounter Summary ---
Demographics + + + | Address | [address] | | | [place] [address] | + + + | Home Phone | | + + + | Preferred Language | Unknown | + + + | Marital Status | Single | + + + | Jain Affiliation | 1074 | + + + | Race | or | + + + | Ethnic Group | Not or | + + + Author + + + | Author | [facility] | | | and [place] | + + + | Organization | [facility] | | | [...] Team Providers + +------+ + | Care Heating Equipment Repairer Name | Role | Phone | + +------+ + | Edwar Wilhelm PA-C | PCP | | + +------+ + Reason for Visit +--------+--------+ + | Reason | Onset | Comments | | | Date | | +--------+--------+ + | Other | 05/14/ | | | | 2014 | | +--------+--------+ + Encounter Details +--------+ + + + + | Date | Type | Department | Care Team | Description | +--------+ + + + + | 05/14/ | Telephone | [facility] | Chris Priest MD | Other | | 2014 | | OTOLARYNGOLOGY [address] | [address] [facility] | | | | | [facility] | [address] [place] | | | | | [place] | [address] | | | | | [address] | | | | | | [phone] | | | +--------+ + + + [...] Telephone Encounter - Lauren Troy RN - 05/15/2014 2:31 PM PDTPatient advised to take care to continually change positions and make frequent stops in order to reduce risk of pre ssure sores. Patient advised to take good care of catheter to avoid injection and to monitor for S/Sx of infection. elephone Encounter - Lesley Casey - 05/14/2014 3:16 PM PDTPatient needs to go out of town on Monday to [place] for a family emergency and would like to know if it will be ok, c onsidering his condition. Or if there is any recommendations. Good number to call back at is [phone] signed by Lesley Casey at 05/14/2014 3:24 PM PDTdocumented in this encounter Plan of [...] | Visit | and Rehabilitation | MD [address] | | | | | | [place] | | | | | | [address] | | | | | | | | +--------+ + + + + documented as of this encounter Visit Diagnoses Not on filedocumented in this encounter"
--- OUTSIDE RECORDS SUMMARY | ~2019-11-15 | XMS | Encounter Summary ---
Demographics + + + | Address | [address] | | | [place] [address] | + + + | Home Phone [...] Author + + + | Author | [facility] | | | and [place] | + + + | Organization | [facility] | | | [...] Team Providers + +------+ + | Care Neurological Surgery Teacher Name | Role | Phone | + [...] | +--------+ + + + + | 08/29/ | Emergency | [facility] | Kamar Doty, | Urinary catheter | | 2013 | | [facility] EM[facility]Y | MD [address] | change required | | | | CENTER [address] | [place] | (Primary Dx) | | | | [place] | [address] | | | | | [address] | | | | | | [phone] | | | +--------+ + + + [...] + + + | Blood Pressure | 94/63 | 08/29/2013 2:53 PM | | | | | PDT | | + + + + + | Pulse | 78 | 08/29/2013 2:53 PM | | | | | PDT | | + + + + + | Temperature | 36.6 C (97.8 F) | 08/29/2013 2:53 PM | | | | | PDT | | + + + + + | Respiratory Rate | 16 | 08/29/2013 2:53 PM | | | | | PDT | | + + + + + | Oxygen Saturation | 96% | 08/29/2013 2:53 PM | | | | | PDT | | + + + + + | Inhaled Oxygen | - | - | | | Concentration | | | | + + + + + | Weight | 88.5 kg (195 lb) | 08/29/2013 2:53 PM | | | | | PDT | | + + + + + | Height | 177.8 cm (5' 10") | 08/29/2013 2:53 PM | | | | | PDT | | + + + + + | Body Mass Index | 27.98 | 08/29/2013 2:53 PM | | | | | PDT | | + + + + + documented in this encounter Discharge Instructions AttachmentsThe following attachments cannot be sent through Care Everywhere.FLOYD ABAD, RAAD (PORTUGUESE)documented in this encounter Medications at Time of [...] Bid to rash | | 0 | /20 | | | (MYCOSTATIN) [id number] | | | | 14 | | [...] 1 tablet by mouth | 120 | 1 | 08/20/19 | | | (LIORESAL) 20 mg | four times daily | tablet | | 14 | 4 | | tabletIndications: | | | | [...] documented as of this encounter ED Notes Kamar Doty MD - 08/29/2013 3:01 PM PDT [id number] Kamar Doty MD 08/29/13 1501 Red Villalobos MD - 08/29/2013 3:01 PM PDT [address] [address] EMERGENCY ROOM REPORT KAMAR DOTY MD Patient: MARTINEZ ABBASI Admitting: MR #: [id number] LOC: PT TYPE: Adm Date: 08/29/2013 : 1970 CHIEF COMPLAINT: Need a Daly change. HISTORY OF PRESENT ILLNESS: Martinez is a 43-year-old male with a history of quadriplegia. He has a chronic indwelling catheter. He normally gets it changed once a month. He was un able to get into his regular doctor today so he came to the ER to have it changed. He has had no fever, cough, chills, sweats, nausea, vomiting, diarrhea or other associated sympto ms. PAST MEDICAL HISTORY: Quadriplegia, kidney stones, hypertension, and anxiety. PAST SURGICAL HISTORY: Significant for spine foot, knee, and shoulder surgery. SOCIAL HISTORY: Does not smoke. REVIEW OF SYSTEMS: All systems reviewed were negative except as noted in HPI. PHYSICAL EXAMINATION: GENERAL: This is a pleasant 43-year-old male in no apparent distress. VITAL SIGNS: Lee rature 97.8, pulse 78, respirations 16, BP 94/63, saturating 96 percent on room air. HEENT: Pupils equally round and reactive to light. Mucous membranes are moist. Nasal pa ssages are clear. Trachea is midline. CHEST: Clear to auscultation bilaterally, no rales or wheezes. CARDIOVASCULAR: Regular rate and rhythm is regular. ABDOMEN: Nondistended. EXTREMITIES: He has some chronic contractures. ASSESSMENT: This is a 43-year-old male is here for catheter change, which was performed b y the nurse. He is discharged home to follow up with his regular doctor. DIAGNOSIS: Daly catheter change. DISPOSITION: Home. KAMAR DOTY MD Dictated by KAMAR DOTY MD 08/29/2013 15:01:30 Transcribed on 08/29/2013 21:17:29 by ms job# [id number] Confirmation #: [id number] signed by Kamar Doty MD at 08/30/2013 3:09 PM PD Tdocumented in this encounter Miscellaneous Notes Plan of Care - GHADA KOENIGMT - 09/02/2013 12:00 AM PDT D Triage Notes - Noelle Torres RN - 08/29/2013 2:53 PM PDT Pt states he can't get into his regular doctor for a daly change this week.Electronically s igned by Noelle Torres RN at 08/29/2013 2:53 PM PDTdocumented in this encounter Plan of [...] Alexandre | | | | | | [facility] [facility] [place] | | | | | | [address] | | | | | | | | +--------+ + + + + documented as of this encounter Visit Diagnoses + + | Diagnosis | + + | Urinary catheter change required - Primary Fitting and adjustment of urinary device | + + documented in this encounter
--- OUTSIDE RECORDS SUMMARY | ~2019-11-15 | XMS | Encounter Summary ---
Demographics + + + | Address | [address] | | | [place] [address] | + + + | Home Phone | | + + + | Preferred Language | Unknown | + + + | Marital Status | Single | + + + | Jewish Affiliation | 1074 | + + + | Race | or | + + + | Ethnic Group | Not or | + + + Author + + + | Author | [facility] | | | and [place] | + + + | Organization | [facility] | | | [...] Team Providers + +------+ + | Care Paving Inspector Name | Role | Phone | + +------+ + | Edwar Wilhelm PA-C | PCP | | + +------+ + Reason for Visit + + + | Reason | Comments | + + + | Therapy Daily | | | Treatment | | + + + Evaluate & Treat (Routine) +--------+ + + + + + | Status | Reason | Specialty | Diagnoses / | Referred By | Referred To | | | | | Procedures | Contact | Contact | +--------+ + + + + + | Closed | Specialty | Physical | Diagnoses | Priest, | [facility] | | | Services | Therapy / | Incomplete | Chris Garcia MD | Pt Op [address] | | | Required | Rehabilitatio | quadriplegia | [address] | | | n | at [address] | [place], | | | | | level (HCC) | [place], | [place] [address] | | | | | Impaired | [place] [address] | Phone: | | | | | mobility and | Phone: | [phone] | | | | | ADLs | [phone] | Fax: | | | | | Procedures | Fax: | [phone] | | | | | pt eval | [phone] | | +--------+ + + + + + Encounter Details +--------+---------+ + + + | Date | Type | Department | Care Team | Description | +--------+---------+ + + + | 06/17/ | Office | [facility] | Chris Priest, | Impaired mobility | | 2016 | Visit | MED CTR THERAPY PT | MD [address] | and activities of | | | | OP [address] | [place] | daily living | | | | [place] | [id number] | (Primary Dx); | | | | [address] | | Impaired functional | | | | [phone] | Tori Luis, PT | mobility, balance, | | | | | [address] | gait, and endurance; | | | | | [place], [place] | Quadriplegia, | | | | | [address] | C5-C7, incomplete | | | | | | (HCC); Posture | | | | | Igor Monaco, | imbalance; Neck | | | | | RN | pain; Bilateral | | | | | | shoulder pain, | | | | | | unspecified | | | | | | chronicity; Impaired | | | | | | mobility and ADLs; | | | | | | Muscle spasm of both | | | | | | lower legs | +--------+---------+ + + + Social [...] as of this encounter Progress Notes Tori Luis, PT - 06/18/2015 5:22 PM PDTFormatting of this note might be different fro m the original. [facility] THERAPY PT OP [address] [place] [address] Physical Therapy Daily Treatment Note Date: 06/18/2015 Patient Information Patient Name: Martinez Abbasi II Date of : 1970 Age: 44 y.o. Encounter Diagnoses Code Name Primary? Z74.09 Impaired mobility and activities of daily living Yes Z74.09 Impaired functional mobility, balance, gait, and endurance G82.54 Quadriplegia, C5-C7, incomplete ([facility]) R29.3 Posture imbalance M54.2 Neck pain M25.511, M25.512 Bilateral shoulder pain, unspecified chronicity Z74.09 Impaired mobility and ADLs M62.838 Muscle spasm of both lower legs Date of Onset: 02/08/2014 Referring Provider: Chris Priest MD Rehab Precautions Office Visit from 02/23/2015 in [facility] TH[facility] PT OP Rehab Precautions Precautions Spinal, Cervical Rehab Learning Style Office Visit from 02/23/2015 in [facility] THER[facility] PT OP Learning Style Patient's [employer] Learning Style listening, reading, observation, performance of task Start Time: 161 Stop time: 1700 Duration: 45 minutes Timed Treatment Codes: 45 minutes # of PT Visits to Date: 6 Subjective: Not interested in standing in frame in clinic- not until he gets one at home and can follow through there. He wants to work on arm exercises, get instructions and band for more arm e xercises to do at home. He has band that is worn out, He has built back up a lot of his bi cep strength by doing biceps curls in his chair. He notes that his L arm is much more atrop hied than his R and he would like to built up his L arm strength. He has regained some acti ve movements in his R hand, feels ready to work with putty some. He wakes early and stretch es his fingers and thumbs on both hands. He has a caregiver several hours a day. His partn er does some range of motion/ stretching with him. At end of visit he reports he is ready t o try to acquire the standing frame through [facility]/ private insurance again. The s tanding frame he has at home is unusable for him. There is only a waist belt, no pelvic bel t, no trunk support, no platform for upper trunk/ UE support. Pain Assessment: Pain Rating Pre Assessment: 4 Location: R shoulder/ neck, between shoulder blades Objective: Education: -standing frame benefits, bone strength, digestion, respiratory, tool for LE exercise/ mm c ontraction in functional position -UE exercises- Yellow foam block and yellow putty provided- handouts on putty exercises an d hand exercises provided. Yellow theraband provided with handle and door anchor. Instruct ion on tricep push with band, triceps work/ UE WB from wheelchair, seated row, reverse fly, bilateral ER with loop, wrist flexion and extension with loop anchored under leg -transfers- target mm to strengthen for improving independence with transfers -ROM- emphasis on maintaining length of hip flexors, knee flexors, ankle plantarflexors- P pedro is helping him with calf stretch, He does a longsitting hamstring stretch daily in b ed, Education on hip flexor stretch in sidelying- demonstrated on his partner. Recommendat ions also made to spend some time in flat supine daily for trunk and hip opening. - initial contact medical equipment provider -UE exercises-- yellow foam hand squeeze bilaterally, more ROM R. Putty finger extension- therapist assist to form loop and place loop on fingers- he is able to active extend partial ly to extend loop. - review of goals and collaboration on his goals- he is in agreement with current goals and plan, would like me to intiate contact with [facility] to work towards ordering the st anding frame Assessment: In need of standing frame which provides adequate support, regular upright position and LE weightbearing, Very receptive to education, he currently appears tentative about transferri ng out of his chair in the clinic- most comfortable with receiving verbal instruction today Plan: Continue to build rapport, progress in clinic mobility with goal of active transfer trainin g and strengthening, collaboration on standing frame/ strengthening in standing, sit balance work/ functional trunk strengthening Electronically signed by: Tori Luis PT, 06/18/2015 17:22 Patient Name: Martinez Abbasi II/: 1970/ documented in this en counter Plan of [...] [place] | | | | | | [address] | | | | | | | [...] Cervicalgia | + + | Bilateral shoulder pain, unspecified chronicity | + + | Impaired mobility and ADLs Mechanical problems with limbs | + + | Muscle spasm of both lower legs Spasm of muscle | + + documented in this encounter"
--- OUTSIDE RECORDS SUMMARY | ~2019-11-15 | XMS | Encounter Summary ---
Demographics + + + | Address | [address] | | | [place] [address] | + + + | Home Phone | | + + + | Preferred Language | Unknown | + + + | Marital Status | Single | + + + | Pentecostalism Affiliation | 1074 | + + + | Race | or | + + + | Ethnic Group | Not or | + + + Author + + + | Author | [facility] | | | and [place] | + + + | Organization | [facility] | | | [...] Team Providers + +------+ + | Care Freight Trucker Name | Role | Phone | + +------+ + | Edwar Wilhelm PA-C | PCP | | + +------+ + Encounter Details +--------+ + + + + | Date | Type | Department | Care Team | Description | +--------+ + + + + | 04/24/ | Documentati | [facility] | Della Ravi, | | | 2016 | on | MED CTR THERAPY PT | PT [address] | | | | | OP [address] | [place] | | | | | [place] | [address] | | | | | [address] | | | | | | [phone] | | | +--------+ + + + [...] of this encounter Progress Notes Della Ren, PT - 04/24/2015 12:55 [facility] OP [address] [place] [address] Cancellation/No Show Date: 04/24/2015 Patient Information Patient Name: Martinez Abbasi II Date of : 1970 Age: 44 y.o. Reason for missed visit: pt called to cancel; no transportation Phone call placed: no Plan: Cont with POC Electronically signed by: Della Ren PT, 04/24/2015 12:55 Patient Name: Martinez Abbasi II/: 1970/ documented [...] Visit | and Rehabilitation | MD [address] | | | | | | [place] | | | | | | [address] | | | | | | | | +--------+ + + + + documented as of this encounter Visit Diagnoses Not on filedocumented in this encounter"
--- OUTSIDE RECORDS SUMMARY | ~2019-11-15 | XMS | Encounter Summary ---
Demographics + + + | Address | [address] | | | [place] [address] | + + + | Home Phone | | + + + | Preferred Language | Unknown | + + + | Marital Status | Single | + + + | Congregation Affiliation | 1074 | + + + | Race | or | + + + | Ethnic Group | Not or | + + + Author + + + | Author | [facility] | | | and [place] | + + + | Organization | [facility] | | [...] Team Providers + +------+ + | Care Reed Press Feeder Name | Role | Phone | + +------+ + | Edwar Wilhelm PA-C | PCP | | + +------+ + Encounter Details +--------+ + + + + | Date | Type | Department | Care Team | Description | +--------+ + + + + | 07/09/ | Hospital | [facility] | Johnny Rosales, | | | 2013 | Encounter | MED CTR ACUTE | PT [address] | | | | | PHYSICAL THERAPY | [place], [place] | | | | | [address] [place] | [address] | | | | | [place] [address] | | | | | | [phone] | | | +--------+ + + + [...] 0 | 03/22/19 | | | (MYCOSTATIN) [id number] | | | | 14 | | [...] [place] | | | | | | [address] | | | | | | | | +--------+ + + + + documented as of this encounter Visit Diagnoses Not on filedocumented in this encounter"
--- OUTSIDE RECORDS SUMMARY | ~2019-11-15 | XMS | Encounter Summary ---
Demographics + + + | Address | [address] | | | [place] [address] | + + + | Home Phone | | + + + | Preferred Language | Unknown | + + + | Marital Status | Single | + + + | Uatsdin Affiliation | 1074 | + + + | Race | or | + + + | Ethnic Group | Not or | + + + Author + + + | Author | [facility] | | | and [place] | + + + | Organization | [facility] | | | and [...] Team Providers + +------+ + | Care Central Office Frame Wirer Name | Role | Phone | + [...] [place] | | | | | | [address] | | | | | | [phone] | | | +--------+ + + + [...] [place] | | | | | | [address] | | | | | | | | +--------+ + + + + documented as of this encounter Visit Diagnoses Not on filedocumented in this encounter"
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
--- OUTSIDE RECORDS SUMMARY | ~2019-11-15 | XMS | Encounter Summary ---
Demographics + + + | Address | [address] | | | [place] [address] | + + + | Home Phone | | + + + | Preferred Language | Unknown | + + + | Marital Status | Single | + + + | Adventism Affiliation | 1074 | + + + | Race | or | + + + | Ethnic Group | Not or | + + + Author + + + | Author | [facility] | | | and [place] | + + + | Organization | [facility] | | | [...] Team Providers + +------+ + | Care Software Sales Consultant Name | Role | Phone | + +------+ + | Edwar Wilhelm PA-C | PCP | | + +------+ + Encounter Details +--------+ + + + + | Date | Type | Department | Care Team | Description | +--------+ + + + + | 05/05/ | Documentati | [facility] | Della Ravi, | | | 2016 | on | [facility] PT | PT [address] | | | | | OP [address] | [place] | | | | | [place] | [address] | | | | | [address] | | | | | | [phone] | | | +--------+ + + + [...] encounter Progress Notes Della Ren, PT - 05/06/2015 4:52 [facility] OP [address] [place] [address] Cancellation Date: 05/06/2015 Patient Information Patient Name: Martinez Abbasi II Date of : 1970 Age: 44 y.o. Reason for missed visit: Cancelled due to work conflict Phone call placed: no Plan: Cont with POC Electronically signed by: Della Ren, PT, 05/06/2015 16:52 Patient Name: Martinez Abbasi II/: 1970/ documented [...] [place] | | | | | | [id number] | | | | | | | | +--------+ + + + + documented as of this encounter Visit Diagnoses Not on filedocumented in this encounter"
--- OUTSIDE RECORDS SUMMARY | ~2019-11-15 | XMS | Encounter Summary ---
Demographics + + + | Address | [address] | | | [place] [address] | + + + | Home Phone | | + + + | Preferred Language | Unknown | + + + | Marital Status | Single | + + + | Denominational Affiliation | 1074 | + + + | Race | or | + + + | Ethnic Group | Not or | + + + Author + + + | Author | [facility] | | | and [place] | + + + | Organization | [facility] | | | [...] Team Providers + +------+ + | Care Transit Department Clerk Name | Role | Phone | + [...] + + | Closed | Specialty | Pain Medicine | Diagnoses | Cem, | | | | Services | | Incomplete | Chris Garcia MD | | | | Required | | quadriplegia | [address] | | | | | | at [address] | [address] | | | | | | level (HCC) | [place], | | | | | | Spasm | [place] [address] | | | | | | Medication | Phone: | | | | | | overuse | [phone] | | | | | | headache | Fax: | | | | | | | [phone] | | +--------+ + + + + + Evaluate & Treat (Routine) +--------+ + + + + + | Status | Reason | Specialty | Diagnoses / | Referred By | Referred To | | | | | Procedures | Contact | Contact | +--------+ + + + + + | Closed | Specialty | Physical | Diagnoses | Aguirre, | [facility] | | | Services | Therapy / | Incomplete | Chris Garcia MD | Pt Op [address] | | | Required | Rehabilitatio | quadriplegia | [address] | | | n | at [address] | [place], | | | | | level (HCC) | [place], | [place] [address] | | | | | Impaired | [place] [address] | Phone: | | | | | mobility and | Phone: | [phone] | | | | | ADLs | [phone] | Fax: | | | | | Procedures | Fax: | [phone] | | | | | pt eval | [phone] | | +--------+ + + + + + Encounter Details +--------+---------+ + + + | Date | Type | Department | Care Team | Description | +--------+---------+ + + + | 01/13/ | Office | [facility] [place] | Chris Aguirre, | Incomplete | | 2014 | Visit | PHYSIATRY [address] | [address] | quadriplegia at C[address] | | | | [address] | [place], [place] | level (HCC) (Primary | | | | [place], [place] | [address] | Dx); Spasm; | | | | [address] | | Neurogenic bowel; | | | | [phone] | | Neurogenic bladder; | | | | | | Impaired mobility | | | | | | and ADLs; Bilateral | | | | | | occipital neuralgia; | | | | | | Medication overuse | | | | | | headache | +--------+---------+ + + + Social History [...] + + + | Blood Pressure | 118/79 | 01/13/2015 4:24 PM | | | | | PST | | + + + + + | Pulse | 70 | 01/13/2015 4:24 PM | | | | | PST | | + + + + + | Temperature | - | - | | + + + + + | Respiratory Rate | 18 | 01/13/2015 4:24 PM | | | | | PST | | + + + + + | Oxygen Saturation | - | - | | + + + + + | Inhaled Oxygen | - | - | | | Concentration | | | | + + + + + | Weight | 98 kg (216 lb) | 01/13/2015 4:24 PM | | | | | PST | | + + + + + | Height | 177.8 cm (5' 10") | 01/13/2015 4:24 PM | | | | | PST | | + + + + + | Body Mass Index | 30.99 | 01/13/2015 4:24 PM | | | | | PST | | + + + + + documented in this encounter Patient Instructions Patient Instructions Chris Aguirre MD - 01/13/2015 5:03 PM PSTPhysical therapy has been prescribed. Please participate in physical therapy. If you have not be contacted for an a ppointment with physical therapy within one week, please contact the clinic. Once you have completed physical therapy please continue the home exercise program as outline by physical therapy, indefinitely. Continue baclofen at current dose. A consult will be requested with the Pain clinic to discuss pain management and possibly a baclofen pump. Return to the clinic in 4 months. 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 HISTORY OF PRESENT ILLNESS: The patient was last seen by me 09/2014, at that time he was having epigastric pain. Gastroenterology consult was requested. He has had upper endoscop y. He has not yet followed up with the [facility]. [facility]. We discussed that by the report esophagus appeared nor mal, there may have been some erythematous gastric lining. We discussed that biopsies were taken, the biopsy results are not available for review. He is advised to follow up with [facility]. We discussed that he may have some gastritis. We discussed that so me of his stomach upset, may be related to use of medication. I discussed that when possi ble he should try to take medications with food in order to protect his stomach lining. He has neurogenic bowel, managed with bowel program. He denies any bowel accidents at thi s time. He has neurogenic bladder. He currently has a suprapubic catheter in place. He d enies any current symptoms of bladder infection. He has muscle spasms. He reports the baclofen seems to be controlling spasms very well. He is taking Baclofen 20 mg 2 in the morning, 1 in the afternoon, and 3 at night. He indic ates that the medication is sedating. He has side effects from it where he feels sleepy wh en taking the medication, but this dose is required to control his spasms. He reports neurogenic pain. He indicates that he has some pain in the neck and the should ers. He has some pain down in the low back. He denies any skin breakdown or skin lesions at this time. He denies any open pressure sores. He indicates that he seems to be having some returning sensation in the low back and buttock area. He reports that he also has so me returning sensation where he is now able to feel when his suprapubic catheter is being c hanged. We discussed that he may have some healing nerve pathways and returning sensation. We discussed that there will be some limitation to this. We discussed that with returnin g sensation there may be increase in neuropathic pain. He indicates that current pain med ication, hydrocodone 3 times per day is not adequate to control his pain. He indicates dameon t he usually needs to take it 4 times per day to offer adequate pain relief. He has headaches. He is having headaches on a daily basis. Headaches are bilateral. Hea daches are in the occipital region. He reports pain starting in the back of the head and r adiating up to the top of the head. He denies nausea or vomiting. He denies light sensiti vity or sound sensitivity. He denies aura. He indicates that headaches may be associated with neck pain. When he was last seen, he was offered greater occipital nerve blocks. He declined this procedure. Today we reexamined greater occipital nerves demonstrating sever e tenderness to greater occipital nerves and reproduction of headache symptoms. Once agai n, he is offered greater occipital nerve blocks and once again, he declines greater occipit al nerve blocks. ALLERGIES: BEE VENOM. CURRENT MEDICATIONS: Tylenol 650 mg every 4 hours. Albuterol inhaler as needed. Baclofen 20 mg 2 in the morning, 1 in the afternoon, and 3 at night. Calcium with vitamin D daily. Valium 5 mg 3 times per day. Colace 100 mg daily. Senokot-S once daily. Marinol 5 mg 2 times daily. Gabapentin 300 mg 3 times per day. Arvonia 10/325 one tablet 4 times per day, it is prescribed to be taken 3 times per day. Midodrine 10 mg 3 times per day. Prilosec 20 mg every morning. MiraLax daily. Probiotic daily. Senokot 8.6 mg 1 tablet twice daily. REVIEW OF SYSTEMS: The patient denies fever, chills, nausea, vomiting, skin breakdown, ra sh, incontinence of bowel. He indicates that bowel seems to be controlled with current bow el program. He has suprapubic catheter in place. He has a standing frame at home. He has not been trained in using it. He has not used standing frame. His home has a walk-in sh ower, but not a roll in shower, he has difficulty accessing the shower because of his [employer] nt shower set up. PHYSICAL EXAMINATION: VITAL SIGNS: Heart rate 70, respiratory rate 18, blood pressure 118/79, weight 216 pounds , height 5 feet 10 inches. GENERAL: No acute distress, alert and oriented to person, place, time and situation. HEENT: Extraocular muscles intact. Sclerae are clear. NECK: Limited range of motion. Increased tone over cervical paraspinal muscles. Severe tenderness to palpation over greater occipital nerves bilaterally, with immediate reproduct ion of headache symptoms. Axial loading test and Spurling's test not performed because of cervical spinal cord injury and history of neck surgery. HEART: Regular rate and rhythm, no murmurs, no gallops. LUNGS: Clear to auscultation, no wheezing, no crackles. ABDOMEN: Nontender, positive for bowel sounds. No guarding. BACK : Symmetric. Mild tenderness to palpation diffusely. Seated straight leg raise negative. Darryl's test negative. EXTREMITY: Reveals atrophy of intrinsic muscles of both hands consistent with his quadrip legia. Atrophy of muscles of both lower extremities, also consistent with quadriplegia. R eflexes continue to be increased over patella of lower extremities. There is no clonus of the ankles at this time, which is a reduction in spasticity. DATABASE: Upper endoscopy report from 12/19/2014 was reviewed by me and reviewed with the patient today. He is advised to follow [facility]. Abdominal ultrasound of right upper quadrant, 12/22/2014 was reviewed with the patient. Ann Marie jones discussed that the ultrasound returned as unremarkable. ASSESSMENT: 1. Incomplete quadriplegia at C6. ICD-10 G82.54. 2. Spasm of muscles. ICD-10 R25.2. 3. Neurogenic bowel. ICD-10 K59.2. 4. Neurogenic bladder. ICD-10 N31.9. 5. Impaired mobility in activities of daily living. ICD-10 Z74.09. 6. Bilateral greater occipital neuralgia. ICD-10 M54.81. 7. Query medication overuse headaches. ICD-10 G4.40 . PLAN: The patient would benefit from training on using a standing frame. He has a standi ng frame at home but has not used it yet. He will need some assistance getting in and out of standing frame. He and his caregiver will need some training for him to use this. At t his time, I am requesting that he return to outpatient physical therapy here at [facility], they can do some standing frame education for him. They can also review his mov ements and strength to see if there is any ways that he would benefit from continued therap y strengthening upper extremities to improve mobility and transfers. Neurogenic bladder, he will continue current management with suprapubic catheter. He has been asked to follow up with [facility] regarding his complaint of epigastric p ain. His spasticity is controlled with current dose of baclofen. I would recommend not t apering up baclofen above current dose. He is having side effects to the baclofen, which i ncludes sedation. One potential way of offering improved spasticity control using lower do ses of baclofen would be a baclofen intrathecal pump. I am requesting a pain clinic consul tation at [facility] to evaluate the patient and determine whether or not he may be a candidate for intrathecal baclofen pump for spasticity control. Lower doses of baclo fen can be used in this method, which offers better spasticity control and less side effect s because of the lower doses used. The patient time, may benefit from increasing his pain medication to 1 tablet 4 times per day for more continuous pain control. It is possible that his headaches are linked to use of hydrocodone; however. If he has medication overuse headaches, his headaches would most likely benefit from switching to a long-acting medication that only needs to be taken once or twice per day. A pain clinic evaluation may also be helpful in offering recommendation s for management of his pain medication. He has greater occipital neuralgia on today's exa m, he would likely benefit from greater occipital nerve blocks. This procedure was offered to him today. He declines greater occipital nerve blocks at this time. In summary, he will have physical therapy for improving activities of daily living, transf ers and standing frame training. He will continue current dose of baclofen, but he will steven ve a consult at [facility] to determine whether or not he may benefit from intrat hecal baclofen pump and potentially adjustment to medication for more continuous pain reli ef and potentially a longer acting pain medication that may reduce his risk of rebound head aches. The patient will return to the clinic in 4 months' time primarily for the goal of managing his spasticity and reviewing functional issues as it relates to his spinal cord injury. I f he is stable at that point likely will recommend extending his followup appointments to o nce every 6 months. As of 01/2015, he is 2 years out from his original spinal cord injury , 01/2013. Thank you for allowing me to be involved in the care of your patient. If you have any ques tions regarding the care of Mr. Abbasi, please do not hesitate to call. CHRIS AGUIRRE JR, MD Dictated by CHRIS AGUIRRE JR, MD 01/13/2015 18:31:56 Transcribed on 01/14/2015 08:49:10 by [facility] job# [id number] Confirmation #: [id number] cc: EDWAR GREENFIELD PAC [facility], Chris Garcia MD - 01/13/2015 5:08 PM PSTThis office note has been dictated. Job ID# [id number] signed by Chris Aguirre MD at 01/13/2015 6:32 PM PSTdocumented in this encounter Plan of Treatment +--------+ [...] [place] | | | | | | [address] | | | | | | | [...] | | Referral | | | level ([facility]) | | | | | | Impaired mobility | | | | | | and ADLs | | + + +--------+ + + | Ambulatory referral | Outpatient | Routin | Incomplete | Ordered: 01/13/2015 | | to Pain Clinic | Referral | e | quadriplegia at C6 | | | | | | level ([facility]) Spasm | | | | | | Medication overuse | | | | | | headache | | + + +--------+ + + documented as of this encounter Visit Diagnoses + + | Diagnosis | + + | Incomplete quadriplegia at C6 level ([facility]) - Primary Quadriplegia, C5-C7, incomplete | + + | Spasm Abnormal involuntary movements | + + | Neurogenic bowel | + + | Neurogenic bladder Neurogenic bladder, NOS | + + | Impaired mobility and ADLs Mechanical problems with limbs | + + | Bilateral occipital neuralgia Other syndromes affecting cervical region | + + | Medication overuse headache Drug induced headache, not elsewhere classified | + + documented in this encounter
--- OUTSIDE RECORDS SUMMARY | ~2019-11-15 | XMS | Encounter Summary ---
Demographics + + + | Address | [address] | | | [place] [address] | + + + | Home Phone | | + + + | Preferred Language | Unknown | + + + | Marital Status | Single | + + + | Confucianist Affiliation | 1074 | + + + | Race | or | + + + | Ethnic Group | Not or | + + + Author + + + | Author | [facility] | | | and [place] | + + + | Organization | [facility] | | | and [...] Team Providers + +------+ + | Care Tool Liaison Name | Role | Phone | + [...] + + | 04/17/ | Emergency | [facility] | [place], | Autonomic | | 2015 | | MED CTR EMER[facility] | Eliu Garcia MD [address] | dysreflexia (Primary | | | | CENTER [address] | [address] [place] | Dx); Complication, | | | | [place], [place] | [place] [address] | suprapubic catheter | | | | [address] | [phone] | obstruction, initial | | | | [phone] | | encounter (HCC) | +--------+ + [...] 0 | 03/22/19 | | | (MYCOSTATIN) [id number] | | | | 14 | | [...] might be differe nt from the original. [facility] Martinez Abbasi II Emergency Department Encounter Note [address] [place] [address] PCP:Edwar Wilhelm [phone] CHIEF COMPLAINT: Chief Complaint Patient presents with Hypertension autonomic dysreflexia ED Room: ED12/ED12 HPI Martinez Abbasi is a 43 y.o. male who presents to the Emergency Department by ambulance for evaluation of autonomic dysreflexia. The patient states that he was feeling at his usual [facility] this morning and had a bowel movement. [...] were reviewed along with EMS notes and long term record s if applicable. (See chart for [...] 2. Complication, suprapubic catheter obstruction, initial encounter ([facility]) Follow-up Information Follow up with Edwar Wilhelm PA-C. Specialty: Physician [employer] Developer-Medical Why: As needed Contact information: [id number] [place] [id number] Eliu Jacob MD 04/17/14 [address] [...] [place] | | | | | | [address] | | | | | | | | +--------+ + + + + documented as of this encounter Visit Diagnoses + + | Diagnosis | + + | Autonomic dysreflexia - Primary | + + | Complication, suprapubic catheter obstruction, initial encounter (HCC) | + + documented in this encounter"
--- OUTSIDE RECORDS SUMMARY | ~2019-11-15 | XMS | Encounter Summary ---
Demographics + + + | Address | [address] | | | [place] [address] | + + + | Home Phone [...] Author + + + | Author | [facility] | | | and [place] | + + + | Organization | [facility] | | [...] Team Providers + +------+ + | Care Lead Section Supervisor Name | Role | Phone | + +------+ + | Edwar Wilhelm PA-C | PCP | | + +------+ + Reason for Visit +--------+--------+ + | Reason | Onset | Comments | | | Date | | +--------+--------+ + | Other | 11/04/ | | | | 2014 | | +--------+--------+ + Encounter Details +--------+ + + + + | Date | Type | Department | Care Team | Description | +--------+ + + + + | 11/04/ | Telephone | [facility] | Chris Priest, | Other | | 2014 | | PHYSIATRY [address] | [address] | | | | | [address] | [place] | | | | | [place] | [address] | | | | | [address] | | | | | | [phone] | | | +--------+ + + + [...] Telephone Encounter - Lauren Troy RN - 11/05/2014 9:28 AM PDTReferral resent from 12/11 fx#[id number] signed by Lauren Troy RN at 11/05/2014 9:28 AM PDTTe lephone Encounter - Amelia Huddleston - 11/04/2014 8:[facility] for a standing station that was previously written for this patient. They state that the patient is now able to use one, but they need a new Rx and some form of documentati on in Dr. Priest's notes stating that this is needed in order for it to be covered through [place] insurance. Nkechi, a nurse, can be contacted for any further questions or clarification at [phone]. Otherwise this information can be faxed to them. documented in this encounter Plan of Treatment [...] [place] | | | | | | [address] | | | | | | | | +--------+ + + + + documented as of this encounter Visit Diagnoses Not on filedocumented in this encounter"
--- OUTSIDE RECORDS SUMMARY | ~2019-11-15 | XMS | Encounter Summary ---
Demographics + + + | Address | [address] | | | [place] [address] | + + + | Home Phone [...] Author + + + | Author | [facility] | | | and [place] | + + + | Organization | [facility] | | | [...] Team Providers + +------+ + | Care Labor Economist Name | Role | Phone | + [...] | +--------+ + + + + | 10/21/ | Home Care | [facility] | Briana Velasco, | CASE COMMUNICATION | | 2019 | Visit | CLIFF [address] | RN | | | | | [place] | | | | | | [address] | | | | | | [phone] | | | +--------+ + + + [...] [place] | | | | | | [address] | | | | | | | | +--------+ + + + + documented as of this encounter Visit Diagnoses Not on filedocumented in this encounter"
--- OUTSIDE RECORDS SUMMARY | ~2019-11-15 | XMS | Encounter Summary ---
Demographics + + + | Address | [address] | | | [place] [address] | + + + | Home Phone [...] Author + + + | Author | [facility] | | | and [place] | + + + | Organization | [facility] | | | [...] Team Providers + +------+ + | Care Digital Advisor Name | Role | Phone | + +------+ + | Edwar Wilhelm PA-C | PCP | | + +------+ + Encounter Details +--------+ + + + + | Date | Type | Department | Care Team | Description | +--------+ + + + + | 09/24/ | Orders Only | [facility] | Provider, | | | 2018 | | SYSTEM GENERIC OP | MD [address] | | | | | CONVERSION [address] | [address]. | | | | | [address] [place], [place] | [place] [address] | | | | | [address] | | | | | | [phone] | | | +--------+ + + + [...] | Kayla Dior, | | 2019 | | | RN | | +--------+ + + + + | 12/24/ | Office | Physical Medicine | Chris Priest, | | 2019 | Visit | and Rehabilitation | MD Margaux Forrest[address] | | | | | | [place] | | | | | | [address] | | | | | | | | +--------+ + + + + documented as of this encounter Visit Diagnoses Not on filedocumented in this encounter"
--- OUTSIDE RECORDS SUMMARY | ~2019-11-15 | XMS | Encounter Summary ---
Demographics + + + | Address | [address] | | | [place] [address] | + + + | Home Phone [...] Author + + + | Author | [facility] | | | and [place] | + + + | Organization | [facility] | | [...] Team Providers + +------+ + | Care Company Laborer Name | Role | Phone | + [...] | Physical | Diagnoses | Cem, | Elliot, | | | Services | Medicine and | | Chris Garcia MD | MD Diomedes | | | Required | Rehabilitatio | Quadriplegia | [address] | | | | n | ([facility]) | [address] | [address] | | | | | Abdominal | [place], | [place] | | | | | spasms | [place] [address] | [address] Phone: | | | | | Muscle spasm | Phone: | [phone] | | | | | of both | [phone] | Fax: | | | | | lower legs | Fax: | [phone] | | | | | Neurogenic | [phone] | | | | | | bladder | | | | | | | Neurogenic | | | | | | | bowel | | | | | | | Impaired | | | | | | | mobility and | | | | | | | ADLs | | | | | | | Neuropathic | | | | | | | pain | | | | | | | Spasticity | | | +--------+ + + + + + Reason for Visit + + + | Reason | Comments | + + + | Neck Pain | | + + + | Shoulder Pain | right shoulder | + + + Encounter Details +--------+---------+ + + + | Date | Type | Department | Care Team | Description | +--------+---------+ + + + | 06/14/ | Office | [facility] | Chris Priest, | Quadriplegia (HCC) | | 2017 | Visit | PHYSIATRY [address] | MD [address] | (Primary Dx); | | | | [address] | [place] | Abdominal spasms; | | | | [place], [place] | [address] | Muscle spasm of both | | | | [phone] | | lower legs; | | | | [phone] | | Neurogenic bladder; | | | | | | Neurogenic bowel; | | | | | | Impaired mobility | | | | | | and ADLs; | | | | | | Neuropathic pain; | | | | | | Spasticity [...] + + + | Blood Pressure | 87/48 | 06/14/2016 4:30 PM | | | | | PDT | | + + + + + | Pulse | 65 | 06/14/2016 4:30 PM | | | | | PDT | | + + + + + | Temperature | - | - | | + + + + + | Respiratory Rate | 20 | 06/14/2016 4:30 PM | | | | | PDT | | + + + + + | Oxygen Saturation | - | - | | + + + + + | Inhaled Oxygen | - | - | | | Concentration | | | | + + + + + | Weight | 98 kg (216 lb) | 06/14/2016 4:30 PM | | | | | PDT | | + + + + + | Height | 177.8 cm (5' 10") | 06/14/2016 4:30 PM | | | | | PDT | | + + + + + | Body Mass Index | 30.99 | 06/14/2016 4:30 PM | | | | | PDT | | + + + + + documented in this encounter Patient Instructions Patient Instructions Dia Loza, Colon Therapist - 06/14/2016 5:02 PM PDTContin ue with medication Baclofen. A referral has been placed to . Our office should be in contact with you. Return if symptoms worsen or fail to improve. documented in this encounter Progress Notes Chris Priest MD - 06/14/2016 4:24 PM PDTFormatting of this note might be different fro m the original. CHIEF COMPLAINT: Chief Complaint Patient presents with Neck Pain Shoulder Pain right shoulder HISTORY OF PRESENT ILLNESS: The patient is a 45 y.o. male being seen today in follow-up after consultation at pain clin ic, physical therapy . Martinez Abbasi II reports neck and bilateral shoulder pain. Martinez bhatia II reports that he has numbness in the forearm into his his middle and ring finger. R ight arm numbness is located into the forearm into the pinky. He reports that he also has pa in in between his shoulder blades. Martinez Abbasi II is currently on a pain contract with [facility]. He reports that he is currently taking morphine twice a day and hydrocodone 3 times a day. He reports that he is having less spasms at this time with use of Baclofen. He reports hav ing spasms spasm for one week at a time in a months times. He reports that his baclofen is n ow being managed through [facility]. Martinez Abbasi II reports that he has increased function in his arms and hands. With yash nuation of physical therapies. 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 Martinez Abbasi II states that he would like to know whether he may be developing scoliosis . He reports that he is currently doing manual pressure release while laying in bed with aid of pillows. He also reports that while in his chair manually by evenly applying pressure to both sides. He admits that he tends to lean to his left side. Martinez Abbasi II denies ski n irritation or breakdown. Denies any wounds at present. Martinez Abbasi II reports that he does digital stimulation every day with results every oth er day. He reports it takes about 2 hours. He reports that he is currently taking stool soft ner. Martinez Abbasi II denies skin iritation. Martinez Abbais II also reports he is not curr ently using suppositories. He admits constipation may be related to opiate use. Reports co nstipation improving. Reports loose stools after constipation releases. He reports that he has not had problems with suprapubic catheter at this time. He reports s ubstantial water and fluid intake. He reports no reoccurring infections. Denies fever or ch ills. He has urologist that he follows up with routinely. Martinez Abbasi II inquired about developing scoliosis. Headaches have been reduced since being on long acting opiate medication rather than short acting medication. Overall the patient reports that the symptoms are improving. He rates the pain as moderat e. He describes the pain as aching or burning. His symptoms worsen with increased activit y. His symptoms improve with rest. Patient's medications, allergies, past medical, surgical, social and family histories were reviewed and updated as appropriate. CURRENT MEDICATIONS: Current Outpatient Prescriptions Medication Sig Dispense Refill acetaminophen (TYLENOL) 325 mg tablet Take 650 mg by mouth every 4 hours as needed. albuterol (VENTOLIN HFA) 90 mcg/puff inhaler Inhale 2 puffs into the lungs every 4 hour s as needed for Wheezing or Shortness of Breath. Use with spacer device. 1 Inhaler 0 baclofen (LIORESAL) 20 mg tablet 1 tablet by mouth qAM, 1 qNoon, 1 qPM, and 2 qHS (Yudelka ent taking differently: 2 tablet by mouth qAM, 1 qNoon, and 3qHS) 150 tablet 2 calcium-vitamin D (OSCAL) 500 mg-200 units per tablet Take 1 tablet by mouth Daily. docusate sodium (COLACE) 100 mg capsule Take 100 mg by mouth Daily. gabapentin (NEURONTIN) 100 mg capsule Take 300 mg by mouth 3 times daily. HYDROcodone-acetaminophen (NORCO) 10-325 mg per tablet Take 1 tablet by mouth every 8 h ours as needed for Pain. midodrine (PROAMATINE) 10 MG tablet Take 10 mg by mouth 3 times daily. morphine (MSIR) 15 mg tablet Take 15 mg by mouth 2 times daily. polyethylene glycol (MIRALAX) powder Mix 17grams into 4-8 oz of juice or water and take by mouth once daily for 2 weeks 255 g 0 Probiotic Product (PROBIOTIC PEARLS PO) Take 1 tablet by mouth Daily. No current facility-administered medications for this visit. ALLERGIES: Allergies Allergen Reactions Bee Venom Swelling Honey Bee Venom Swelling REVIEW OF SYSTEMS: GENERALLY: No fever, no night sweats, no anemia, + fatigue, no recent profound weight francois nges. EYES: No eye problems, + use of corrective lenses, no eye injury, no double vision, no bli ndness. EARS, NOSE, AND THROAT: No changes in taste or smell, no hearing difficulty, no ringing in the ears, no ear drainage, no dizziness, no voice changes, no difficulty swallowing, no sig nificant snoring, no sleep apnea, no sinus problems, no major dental work. NEUROLOGICALLY:The patient has +numbness/pain of arms, no numbness/pain of legs, no awake w ith numbness/pain, no weakness, + muscle aching, no coordination difficulty, no change in wa lk, no head injury, no neck injury, no back injury, no pain in neck, no pain in back, no str milton, no fainting spells, no loss of consciousness, no tremor/shaking, no seizures, no headac hes, no migraine, no memory loss, no speech difficulty, no confusion and no numbness of face . PSYCHIATRIC: No depression, + sleep disorders, + anxiety, no bipolar disorder, no psychoti c episodes. CARDIOVASCULAR: No heart attacks, no heart murmur, no heart fluttering, no chest pain, no ankle swelling. LUNG DISEASE: + shortness of breath, no cough, no tuberculosis, no bloody cough, no asthm a, no emphysema/COPD. GASTROINTESTINAL: No bowel disease, no [...] no personal h istory of cancer. RHEUMATOLOGIC: + joint arthritis, no rheumatoid arthritis. PHYSICAL EXAMINATION: Blood pressure 87/48, pulse 65, resp. rate 20, height 1.778 m (5' 10"), weight 97.977 kg (2 16 lb). Body mass index is 30.99 kg/(m^2). GENERAL: The patient is well developed and well nourished. He does not appear uncomfortabl e when seated. HEENT: Normocephalic and atraumatic. Normal sclerae without icterus. NECK (ANTERIOR): There is no apparent cervical lymphadenopathy or thyromegaly. PULMONARY: The patient is in no acute respiratory distress with unlabored respirations. CARDIOVASCULAR: Regular rate and rhythm. There is not lower extremity edema. ABDOMEN: Distended. SKIN: Limited skin exam shows no significant rashes or lesions. There are scars in the lum bar region. MUSCULOSKELETAL : The patient localized the majority of the pain to the cervical region. 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 He has 4+/5 wrist dorsiflexion bilaterally. He has 5 /5 biceps and triceps strength bilaterally. Tone on modified Fabiola scale is currently 2 out 5 in major muscle groups of both lower e xtremities. DATABASE: Now new imaging is available to review. ASSESSMENT: 1. Quadriplegia (HCC) 2. Abdominal spasms 3. Muscle spasm of both lower legs 4. Neurogenic bladder 5. Neurogenic bowel 6. Impaired mobility and ADLs 7. Neuropathic pain 8. Spasticity PLAN: 1. Discussion of scoliosis was discussed in detail that may be a possibility after neurolog ic injury and when sitting in chair majority of each day. He is advised to stretch evenly to both sides to prevent scoliosis. Avoid predominant sitting to one side. Discussed using a lternate back support in his wheelchair but may hinder the ability to achieve pressure relie f. He is advised to continually relieve pressure to avoid skin irritation. 2. Martinez Abbasi II is advised to continue with physical therapy. He continues to demonst rate function improvement with use of his hands. So long as he continues to make function g aines, physical therapy should continue. He should continue taking medication Baclofen at current dose. Current dose is adequately managing his spasticity. Catalina Wilhelm PA-C is currently managing refills of Baclofen according to Martinez Abbasi II. Martinez Abbasi II has pain contract through [facility] and is advised to continue care w ith their office. Agree with transition to long acting opiate. Rebound headaches have reso lved. 3. It was discussed that he should continue with digital stimulation as it seems to be work ing for him. He was advised that a suppository may be beneficial to avoid constipation and d ilated colon. He is happy with current bowel program. He denies accidents. Daily supposit ory may reduce amount of time spent doing bowel program. 2 hours each day is too long. Suprapubic catheter seems to working efficiently for the patient He should continue follow up with his urologist routinely. 4. In regards to his headaches they have improved with long acting opiate medication. This supports that his headaches were likely rebound headaches. 5. Martinez Abbasi II will have consultation with Diomedes Zarate MD. He is a fellow PM&R physician in our clinic providing more routine care to those with spinal cord injury. I am asking his expertise to see if he has anything more to add to the care of Martinez Abbasi II . Thank you for allowing me to be involved in the care of your patient. If you have any ques tions regarding the care of your patient please don't hesitate to call. Approximately 45 minutes was spent face to face with Martinez Abbasi II, over half of which was spent formulating and discussing their medical treatment plan. Chris Priest MD (Jr.) ELECTRONICALLY SIGNED BY: Dia Loza, Frame Welder [employer], 06/14/2016 16:58 I Ashley Ortiz am personally scribing in presence of Dr.Marsh Zepeda documented in this en counter Plan of [...] [place] | | | | | | [id number] | | | | | | | | +--------+ + + + + + + +--------+ + + | Name | Type | Priori | Associated Diagnoses | Order Schedule | | | | ty | | | + + +--------+ + + | * SARAH KOENIG | Outpatient | Routin | Quadriplegia ([facility]) | Ordered: 06/14/2016 | | Physiatry - AMB | Referral | e | Abdominal spasms | | | Referral | | | Muscle spasm of both | | | | | | lower legs | | | | | | Neurogenic bladder | | | | | | Neurogenic bowel | | | | | | Impaired mobility | | | | | | and ADLs | | | | | | Neuropathic pain | | | | | | Spasticity | | + + +--------+ + + documented as of this encounter Visit Diagnoses + + | Diagnosis | + + | Quadriplegia ([facility]) - Primary Quadriplegia, unspecified | + + | Abdominal spasms Abdominal pain, unspecified site | + + | Muscle spasm of both lower legs Spasm of muscle | + + | Neurogenic bladder Neurogenic bladder, NOS | + + | Neurogenic bowel | + + | Impaired mobility and ADLs Mechanical problems with limbs | + + | Neuropathic pain Neuralgia, neuritis, and radiculitis, unspecified | + + | Spasticity Abnormal involuntary movements | + + documented in this encounter
--- OUTSIDE RECORDS SUMMARY | ~2019-11-15 | XMS | Encounter Summary ---
Demographics + + + | Address | [address] | | | [place] [address] | + + + | Home Phone | | + + + | Preferred Language | Unknown | + + + | Marital Status | Single | + + + | Christian Affiliation | [id number] | + + + | Race | or | + + + | Ethnic Group | Not or | + + + Author + + + | Author | [facility] | | | and [place] | + + + | Organization | [facility] | | | [...] Team Providers + +------+ + | Care Hair Assistant Name | Role | Phone | + [...] | +--------+ + + + + | 11/05/ | Home Care | [facility] | Kayla Dior, | SN REPEAT VISIT | | 2019 | Visit | [facility] [address] | [place] | | | | | [place] | | | | | | [address] | | | | | | [phone] | | | +--------+ + + + [...] + + + | Blood Pressure | 124/74 | 11/06/2019 10:30 AM | | | | | PDT | | + + + + + | Pulse | 78 | 11/06/2019 10:30 AM | | | | | PDT | | + + + + + | Temperature | 36.2 C (97.1 F) | 11/06/2019 10:30 AM | | | | | PDT | | + + + + + | Respiratory Rate | 14 | 11/06/2019 10:30 AM | | | | | PDT | | + + + + + | Oxygen Saturation | 97% | 11/06/2019 10:30 AM | | | | | PDT [...] this encounter Miscellaneous Notes Home Health - Kayla Dior RN - 11/06/2019 10:20 AM PDT1) Are you or anyone you live with [...] any question 1-6 is yes. Consult with technology services manager prior to visit. S Incomplete quadriplegia with pressure ulcer and suprapubic catheter B Pt has history of GERD, quadriplegia from mid abd down, pressure ulcer, neurogenic bladd er A. Pt seen today for wound care to sacrum. Wound bed is completely granulating tissue, an d no slough noted. Bleeding after cleansing Wound is covered with foam adhesive dressing. Suprapubic catheter change performed today. Pt was not sure he could do it due to spasms a nd cramping to abdomen, but after re positioning on back he was fine. RN removed old cathet er tip intact, and cleansed opening in abdomen with betadine and inserted new 18 tanzanian 10 c c catheter without resisitance. Immediate clear yellow return noted with some clots. Pt to lerated well. T gauze placed at insertion site. R Continue POC docu mented in this encounter Plan of Treatment +--------+ [...] Alexandre | | | | | | [place] | | | | | | [id number] | | | | | | | | +--------+ + + + + documented as of this encounter Visit Diagnoses Not on filedocumented in this encounter Home Health Visit - Care Plan + + | Visit Type - SN - REPEAT VISIT | | Discipline - Group Home | + + + + +--------+--------+-------+ + | Problem | Description | Start | Status | Goals | Interventio | | | | Date | | | ns | + + +--------+--------+-------+ + | HH Other Wound | Upper right back | | | - | 1 problem | | Disciplines: | scab healed over | | Active | | | | Group Home | Left buttock hx of | 020 [...] | | Active | | | | Group Home | | 020 | | | interventio [...] 020 | | | interventio | | Group Home | | | | | n | [...] | | | | n | | Group Home | | | | | scheduled/d | | | | | | | ocumented | | | | | | | in this | | | | | | | visit | + + +--------+--------+-------+ + | Wound Management | Right buttock | | | - | 1 problem | | Disciplines: | | | Active | | | | Group Home | | 020 | | | interventio [...] | | + + +--------+--------+ + | Change catheter as | Problem: SN | | | | | scheduled/ordered | Urinary Elimination | Comple | | | | Description: SN to | | caren | | | | provide suprapubic | | | | | | catheter changes | | | | | | every 2 weeks using | | | | | | 18Fr/ 5-10 mls. | | | | | + + +--------+--------+ + | Discharge planning | Problem: Knowledge | | | | | Description: | Deficit, Education, | Comple | | | | Assess if the | Discharge Plan | caren | | | | established | | | | [...]
--- OUTSIDE RECORDS SUMMARY | ~2019-11-15 | XMS | Encounter Summary ---
Demographics + + + | Address | [address] | | | [place] [address] | + + + | Home Phone | | + + + | Preferred Language | Unknown | + + + | Marital Status | Single | + + + | Zoroastrian Affiliation | 1074 | + + + | Race | or | + + + | Ethnic Group | Not or | + + + Author + + + | Author | [facility] | | | and [place] | + + + | Organization | [facility] | | | [...] Team Providers + +------+ + | Care Asbestos Siding Mechanic Name | Role | Phone | + +------+ + | Edwar Wilhelm PA-C | PCP | | + +------+ + Encounter Details +--------+ + + + + | Date | Type | Department | Care Team | Description | +--------+ + + + + | 03/02/ | Hospital | [facility] | Chase Montalvo, | | | 2017 | Encounter | [facility] | [address] | | | | | [address] | [address] | | | | | [place], [place] | [place] [address] | | | | | [address] | [phone] | | | | | [phone] | | | +--------+ + + + [...] | Blood Pressure | 132/67 | 03/02/2016 10:15 AM | | | | | PST | | + + + + + | Pulse | 81 | 03/02/2016 10:15 AM | | | | | PST | | + + + + + | Temperature | 36.4 C (97.6 F) | 03/02/2016 10:15 AM | | | | | PST | | + + + + + | Respiratory Rate | 16 | 03/02/2016 10:15 AM | | | | | PST | | + + + + + | Oxygen Saturation | - | - | | + + + + + | Inhaled Oxygen | - | - | | | Concentration | | | | + + + + + | Weight | 99.3 kg (219 lb) | 03/02/2016 10:15 AM | | | | | PST | | + + + + + | Height | 177.8 cm (5' 10") | 03/02/2016 10:15 AM | | | | | PST | | + + + + + | Body Mass Index | 31.42 | 03/02/2016 10:15 AM | | | | | PST [...] 0 | 03/22/19 | | | (MYCOSTATIN) [id number] | | | | 14 | | [...] Progress Notes Conversion Transaction, Provider Unknown - 03/02/2016 10:16 AM PSTFormatting of this note m ight be different from the original. Nurse Progress Note by Steffayn Wiseman RN at 03/02/16 1016 Author: Steffany Wiseman RN Service: General Surgery Author Type: Registered Nurse Filed: 03/02/16 1017 Date of Service: 03/02/16 1016 Status: Signed Dietary Assistant: Steffany Wiseman RN (Registered Nurse) Patient discharged home with family. Patient has all personal belongings, discharge instru ctions and prescriptions. We discussed, skin care, activity, diet, pain control, follow up care and appointments along with new prescribed medications. Patient expressed understandin g and had no questions. docume nted in this encounter H&P Notes Chase Montalvo MD - 03/02/2016 7:52 AM PSTFormatting of this note might be different f rom the original. H&P by Chase Montalvo MD at 03/02/16 0752 Author: Chase Montalvo MD Service: Urology Author Type: Physician Filed: 03/02/16 0754 Date of Service: 03/02/16 0752 Status: Signed Dietary Assistant: Chase Montalvo MD (Physician) [facility] Service: Urology Initial Consult Note Patient: Martinez Abbasi Jr. Date of Consultation: 12/15/2015 Primary Care Provider: No primary care provider on file. History was obtained from: patient Reason for Consultation: Patient wants a suprapubic placed CHIEF COMPLAINT: Chief Complaint Patient presents with Establish Care suprapubic cath placement HISTORY OF PRESENT ILLNESS Mr. Abbasi is pleasant 45-year-old gentleman here to establish care. He has a history of C5 through C7 quadriplegia with neurogenic bladder and autonomic dysreflexia that was previo usly managed by a suprapubic tube with Dr. Auguste. The patient transitioned his care to Dr. Murillo. He had difficulty with some of the suprapubic catheter exchanges and he transitioned t o a urethral catheter. He presents today for further management options and for consideratio n of transitioning back to a suprapubic catheter. The patient has done well without signific ant urinary tract infections. He has paid close attention to maintaining his hydration statu s. He had a couple of occasions with a 16-Vietnamese catheter wherein they became clogged with m ucus, but these were managed at that time. He is otherwise doing well. He is not on any bloo d thinners. He has had no previous abdominal surgeries. REVIEW OF OUTSIDE RECORDS Summary of pertinent findings: to be scanned in. Previously with [address] Renny leroy. PMH: CVA in 2012, C5-7 quadriplegia, autonomic dysreflexia Past Surgical History Procedure Laterality Date Unlisted procedure arthroscopy Shoulder surgery Bilateral DATA CBC: Lab Results Component Value Date WBC 9.1 02/08/2013 RBC 4.29 02/08/2013 HGB 12.8* 02/08/2013 HCT 38.7* 02/08/2013 MCV 90.4 02/08/2013 MCH 30.0 02/08/2013 MCHC 33.2 02/08/2013 RDW 40.0 02/08/2013 PLT 195 02/08/2013 MPV 8.1 02/08/2013 DIFFTYPE AUTOMATED 02/08/2013 CMP: Lab Results Component Value Date NA 144* 02/08/2013 K 4.5 02/08/2013 CL 113* 02/08/2013 CO2 25 02/08/2013 ANIONGAP 10 02/08/2013 GLUF 111* 02/08/2013 BUN 13 02/08/2013 CREATININE 0.78 02/08/2013 BCR 16 02/08/2013 CA 7.1* 02/08/2013 PROT 5.3* 02/08/2013 ALB 2.8* 02/08/2013 GLOB 2.5 02/08/2013 BILITOT 0.2 02/08/2013 ALP 63 02/08/2013 AST 19 02/08/2013 ALT 17 02/08/2013 EGFR NOT ABLE TO CALCULATE 02/08/2013 U/A: Lab Results Component Value Date COLORU Dark yellow 02/08/2013 CLARITYU CLEAR 02/08/2013 LEUKOCYTESUR neg 02/08/2013 NITRITE NEGATIVE 02/08/2013 UROBILINOGEN 0.2 02/08/2013 UPRO TRACE* 02/08/2013 PHUR 6.0 02/08/2013 BILIRUBINUR SMALL* 02/08/2013 REVIEW OF SYSTEMS Review of Systems Constitutional: Negative for fever and weight loss. Eyes: Negative for blurred vision. Respiratory: Negative for shortness of breath. Cardiovascular: Negative for chest pain. Gastrointestinal: Negative for nausea and vomiting. Genitourinary: Positive for dysuria. Negative for urgency, frequency, hematuria and flank p ain. Musculoskeletal: Negative for myalgias. Skin: Negative for rash. Neurological: Negative for dizziness, focal weakness and headaches. Endo/Heme/Allergies: Does not bruise/bleed easily. Psychiatric/Behavioral: Negative for depression. PHYSICAL EXAM Pulse 84 | Wt 99.791 kg (220 lb) | SpO2 97% Comprehensive exam performed due to potential surgical candidate. General: In no acute distress. Appropriately interactive and able to follow instructions. Eyes: No scleral icterus. Cardiac: Regular rate and rhythm. Pulmonary: Normal respiratory effort. GI: Abdomen soft, non-distended. Musculoskeletal: Normal gait noted with ambulation. No flank tenderness. Neurologic: some mobility of bilateral upper extremities. In wheel chair. Skin: No rashes. Previous SPT scar. Psychiatric: Appropriate affect. ASSESSMENT & PLAN #1 Neurogenic bladder #2 Autonomic Dysreflexia -- It was a pleasure meeting with you today. -- You are currently utilizing an indwelling catheter. You have done well with a suprapubic tube in the past and wish to transition back to this. -- The risks, benefits and alternatives to this procedure were discussed at length, questio ns were answered and informed consent was obtained. The risks include, but are not limited t o: , heart attach, stroke, pneumonia, bowel obstruction, bleeding (including the possib le need for transfusion), infection and injury to surrounding structures with the need for s ubsequent repair/removal. -- We will plan on the first exchange in my office after 6 weeks. Subsequent exchanges can be done by your home care nurse provided she is comfortable with this and the first exchange is straight forward. -- Will anticipate the suprapubic catheter placement on 01/06/2016 PLAN: 1: Suprapubic catheter placement on 01/06/2016 2: Informed consent was obtained. Thank you for allowing me to participate in the care of this patient. Please call if there are any additional questions. Chase Montalvo MD 12/15/2015 ---- ADDENDUM: History as above. Spent the night in town. Started Cipro on Monday. Took his dose this morn ing. In bed, doing well. No acute distress. No significant changes from above. Chase Montalvo MD 03/02/2016 documente d in this encounter Miscellaneous Notes Op Note - Chase Montalvo MD - 03/02/2016 7:54 AM PSTFormatting of this note might be d ifferent from the original. Op Note by Chase Montalvo MD at 03/02/16 0754 Author: Chase Montalvo MD Service: Urology Author Type: Physician Filed: 03/02/16 0858 Date of Service: 03/02/16 0754 Status: Signed Dietary Assistant: Chase Montalvo MD (Physician) [facility] Service: Urology Operative Note Pre-operative Diagnosis: Neurogenic bladder Post-operative Diagnosis: Same Procedure(s): Cystoscopy with punch suprapubic tube placement Surgeon: Chase Montalvo MD Bushel Worker(s): none Anesthesia: General LMA Estimated Blood Loss: Less Than 10 ml (Minimal) Other: IV Fluids: <500 ml Indications: See pre-operative history and physical. Findings: 1: Anterior location chosen given previous scar from prior SP tube and history of difficult exchanges 2: Uncomplicated punch SPT placement and cystoscopy 3: Elevated blood pressure and bradycardia (autonomic dysreflexia) noted with bladder diste ntion. Resolved with placement of the SP tube and bladder drainage. Complications: none Description of Procedure: After proper patient identification, the patient was brought to the OR and prepped and drap ed in the usual fashion. After surgical pause, cystoscopy was performed revealing normal ure thral anatomy. Upon entry into the bladder, bilateral ureteral orifices were noted in orthot opic position. No foreign body, stone or tumor were seen. The bladder was then filled with t he cystoscope and the patient was placed in a partial Trendelenburg position. ~2 cm above th e pubic symphysis and just below the previous SP tube site scar, a guide needle was advanced into the bladder while aspirating under direct visualization from the scope. The skin was o pened next to the needle ~1cm. The patient was noted to have an elevated blood pressure and bradycardia. A punch suprapubic kit with sheath and dilator were advanced along the same tra ct and into the bladder with good return of urine and visualization within the bladder. The dilator was removed and an 18 maltese catheter was advanced through the sheath and filled wit h 15 ml in the balloon. The bladder was drained and the blood pressure and heart rate improv ed. The sheath was removed and the suprapubic tube was draining well. The balloon was visual ized within the bladder and bilateral ureteral orifices were noted in the orthotopic positio ns. The patient tolerated the procedure well. Condition: Stable Chase Montalvo MD 03/02/2016 documentkaren d in this encounter Plan of Treatment +--------+ [...] [place] | | | | | | [address] | | | | | | | | +--------+ + + + + documented as of this encounter Visit Diagnoses Not on filedocumented in this encounter
--- OUTSIDE RECORDS SUMMARY | ~2019-11-15 | XMS | Encounter Summary ---
Demographics + + + | Address | [address] | | | [place] [address] | + + + | Home Phone [...] + + + | Author | [facility] | | | and [place] | + + + | Organization | [facility] | | | and [...] Team Providers + +------+ + | Care Livestock Breeder Name | Role | Phone | + [...] | | | | function | | BUD, | | | | | [place]astro[place]oph[place] | | [place] [address] | | | | | geal reflux | | Phone: | | | | | disease | | [phone] | | | | | without | | Fax: | | | | | esophagitis | | [phone] | | | | | Abdominal | [...] | | | | | | | MD | | | | | | | [...] + + | 12/19/ | Hospital | [facility] | Jonathan Avendaño MD | Dysphagia (Primary | | 2015 | Encounter | [facility] | [address] | Dx); | | | | [address] | [place] | Gastroesophageal | | | | [place] | [address] | reflux disease | | | | [address] | [phone] | without esophagitis | | | | [phone] | | | +--------+ + + + [...] the physician who did your procedure at [phone] if you have any questions or experience any of the following: ? Increasing abdominal pain, nausea, or vomiting. ? Chills and fever over 101F. ? New abdominal swelling or bloating. ? Signs of rectal bleeding (black or red stool). If you cannot get a hold of your physician, then call the [facility] [phone] . If necessary, report to the Emergency Department at [facility]. Quit smoking: If you smoke or [...] Apply topically 4 | | 0 | / | | | (RISAMINE) | times daily. [...] 0 | 01/24/20 | | | (MYCOSTATIN) [id number] | | | | 14 | | [...] + + documented as of this encounter H&P Notes Jonathan Avendaño MD - 12/19/2014 12:13 PM PDTPatient interviewed, history and physical, symp toms reviewed VS signs noted, no change from previous H&P or assessment and plan.Electronic ally signed by Jonathan Avendaño MD at 12/19/2014 12:13 PM PDTJonathan Avendaño MD - 12/11/2014 5:53 PM PDT Subjective: Patient ID: Martinez Abbasi II is a 44 y.o. male. HPI This office note has been dictated. Review of Systems Objective: Physical Exam Assessment: This office note has been dictated. Plan: This office note has been dictated. documented in this enc ounter Plan of Treatment +--------+ + + + [...] PASTOR | | | | | | [address] | | | | | | | [...] | [facility] | | GastroenterologyPatient Name: Martinez RogelumProcedure Date: 12/19/2014 | PROVATION | | 11:46 AMMRN: [id number] #: [id number] of : | | | 1970Admit Type: AmbulatoryAge: 44Room: [facility] 02Gender: MaleNote | | | Status: FinalizedAttending MD: Jonathan Avendaño, [facility]cedure: | | | Upper GI endoscopyIndications: Dyspepsia, Dysphagia, | | | Suspected esophageal reflux, NauseaProviders: Jonathan Kang | | | MD Jarocho, Shana Love RN, Karie Vasquez | | | Sridhar, Pediatric Oncology Nurse, Blane Tompkins MD (Anesthesia | | | [...] the | | | anesthesiologist and the senior qc technician in the pre-procedure area in the [...] Scope In: 11:58:14 AMScope Out: 12:04:18 PM Wolf | | | [facility], [address] [place] [address] | | | [phone] | | | - Regular diet. | [...] |Scope Out: 12:04:18 PM | | | [facility], [address] [place] [address] [place], [place] | | | [address] | | + + -+ + +---------+ [...] for | | | increased epithelial eosinophils. JVR:[facility]:C2NR GROSS | | | DESCRIPTION: A. The specimen labeled "Martinez Abbasi II" and | | | designated "duodenum on the requisition," is received in formalin and | | | consists of three pink-bailey color tissue fragments, 0.2 to 0.4 cm. | | | All into (A1). B. The specimen labeled "BeareleazarumMartinez II" | | | and designated "gastric on the requisition," is received in formalin | | | and consists of four pink-bailey color tissue fragments, 0.15 to 0.6 cm. | | | All into (B1). C. The specimen labeled "Beareleazarum, Martinez II" | | | and designated esophagus on the requisition," is received in formalin | | | and consists of three cream-colored tissue fragments, 0.4 cm. All | | | into (C1). yyt:JVR:[facility] PERFORMING LABORATORY: Tissue processing | | | and slide preparation were performed by [facility], [address] | [address], [place] [address] (Nursing Home Aide: Krishna | | Chuck Miranda M.D. CLIA#: [id number]). Professional interpretation was | | | performed by [facility], [facility] | | | Branch, [address] [place] [address] (Nursing Home Aide: | | | Krishna Miranda M.D.; CLIA#: [id number]). Diagnostician: Krishna | | | Allan Miranda [...]
--- OUTSIDE RECORDS SUMMARY | ~2019-11-15 | XMS | Encounter Summary ---
Demographics + + + | Address | [address] | | | [place] [address] | + + + | Home Phone | | + + + | Preferred Language | Unknown | + + + | Marital Status | Single | + + + | Buddhist Affiliation | 1074 | + + + | Race | or | + + + | Ethnic Group | Not or | + + + Author + + + | Author | [facility] | | | and [place] | + + + | Organization | [facility] | | | [...] Team Providers + +------+ + | Care Scientific Software Engineer Name | Role | Phone | [...] | | IMAGING [address] | [address] | | | | | [address] [facility] | [place] [address] | | | | | [place] [address] | | | | | | [phone] | | | +--------+ + + + [...] [place] | | | | | | [address] | | | | | | | | +--------+ + + + + documented as of this encounter Procedures + +--------+ + + + | Procedure Name | Priori | Date/Time | Associated Diagnosis | Comments | | | ty | | | | + +--------+ + + + | XR HIP RIGHT 2-3 | Routin | 08/06/2018 | | Results for this | | VIEWS | e | 12:00 AM | | procedure are in the | | | | PDT | | results section. | + +--------+ + + + documented in this encounter Results XR Hip Right 2-3 Views (08/06/2018 12:00 AM PDT) + + | Specimen [...]
--- OUTSIDE RECORDS SUMMARY | ~2019-11-15 | XMS | Encounter Summary ---
Demographics + + + | Address | [address] | | | [place] [address] | + + + | Home Phone | | + + + | Preferred Language | Unknown | + + + | Marital Status | Single | + + + | Moravian Affiliation | 1074 | + + + | Race | or | + + + | Ethnic Group | Not or | + + + Author + + + | Author | [facility] | | | and [place] | + + + | Organization | [facility] | | [...] Team Providers + +------+ + | Care Prospect Manager Name | Role | Phone | + +------+ + | Edwar Wilhelm PA-C | PCP | | + +------+ + Reason for Visit +--------+--------+ + | Reason | Onset | Comments | | | Date | | +--------+--------+ + | Other | 01/16/ | | | | 2016 | | +--------+--------+ + Encounter Details +--------+ + + + + | Date | Type | Department | Care Team | Description | +--------+ + + + + | 01/16/ | Telephone | [facility] | Chris Priest, | Other | | 2016 | | PHYSIATRY [address] | [address] | | | | | [address] | [place] | | | | | [place] | [address] | | | | | [address] | | | | | | [phone] | | | +--------+ + + + [...] this encounter Miscellaneous Notes Telephone Encounter - Stephanie Cadena - 01/16/2017 8:08 AM PSTPatient was scheduled fo r a follow up with Dr. Priest after seeing Dr. Zarate. Patient would like to know if Dr. Cynthia acosta had recommendations for a paste on chest he discussed with Dr. Zarate. Patient wasn't [place] re of the name of procedure. Please advise Electronically signed by Stephanie Cadena at 8:10 AM PSTdocumented in this encounter Plan of Treatment [...] [place] | | | | | | [address] | | | | | | | | +--------+ + + + + documented as of this encounter Visit Diagnoses Not on filedocumented in this encounter"
--- OUTSIDE RECORDS SUMMARY | ~2019-11-15 | XMS | Encounter Summary ---
Demographics + + + | Address | [address] | | | [place] [address] | + + + | Home Phone | | + + + | Preferred Language | Unknown | + + + | Marital Status | Single | + + + | Gnosticism Affiliation | 1074 | + + + | Race | or | + + + | Ethnic Group | Not or | + + + Author + + + | Author | [facility] | | | and [place] | + + + | Organization | [facility] | | [...] Team Providers + +------+ + | Care Car Sales Representative Name | Role | Phone | + [...] [place] | | | | | | [address] | | | | | | [phone] | | | +--------+ + + + [...] Care | Home Health Services | Kayla Diro, | | | 2019 | Visit | [...] [place] | | | | | | [address] | | | | | | | | +--------+ + + + + documented as of this encounter Visit Diagnoses Not on filedocumented in this encounter"
--- OUTSIDE RECORDS SUMMARY | ~2019-11-15 | XMS | Encounter Summary ---
Demographics + + + | Address | [address] | | | [place] [address] | + + + | Home Phone | | + + + | Preferred Language | Unknown | + + + | Marital Status | Single | + + + | Synagogue Affiliation | 1074 | + + + | Race | or | + + + | Ethnic Group | Not or | + + + Author + + + | Author | [facility] | | | and [place] | + + + | Organization | [facility] | | [...] Team Providers + +------+ + | Care Laboratory Technician Name | Role | Phone | [...] + + | 05/14/ | Telephone | [facility] | Chris Priest MD | Other | | 2014 | | OTOLARYNGOLOGY [address] | [address] [facility] | | | | | [facility] [address] | [address] [place] | | | | | [place] | [address] | | | | | [address] | | | | | | [phone] | | | +--------+ + + + [...] go out of town on Monday to [place] for a family emergency and would like to know if it will be ok, c onsidering his condition. Or if there is any recommendations. Good number to call back at is [phone] signed by Lesley Casey at 05/14/2014 3:24 [...] [place] | | | | | | [address] | | | | | | | | +--------+ + + + + documented as of this encounter Visit Diagnoses Not on filedocumented in this encounter"
--- OUTSIDE RECORDS SUMMARY | ~2019-11-15 | XMS | Encounter Summary ---
Demographics + + + | Address | [address] | | | [place] [address] | + + + | Home Phone [...] Team Providers + +------+ + | Care Personal Lines Sales Rep Name | Role | Phone | + +------+ + | Edwar Wilhelm PA-C | PCP | | + +------+ + Reason for Visit +--------+--------+ + | Reason | Onset | Comments | | | Date | | +--------+--------+ + | Forms | 11/11/ | | | | 2014 | | +--------+--------+ + Encounter Details +--------+ + + + + | Date | Type | Department | Care Team | Description | +--------+ + + + + | 11/11/ | Telephone | [facility] | Chris Priest, | Forms | | 2014 | | PHYSIATRY [address] | [address] | | | | | [address] | [place] | | | | | [place] | [address] | | | | | [address] | | | | | | [phone] | | | +--------+ + + + [...] this encounter Miscellaneous Notes Telephone Encounter - Amelia Huddleston - 11/11/2014 3:31 PM PDTSpoke with Colleen. They have in fact received this form. Telephone Encounter - Lauren Troy RN - 11/11/2014 3:13 PM PDTYes it was received, yes it was completed, and I think it has been faxed. It is now likely in "limbo" waiting to be scanned in at [facility]. elephone Encounter - Amelia Huddleston - 11/11/2014 11 :22 AM PDTCarrie with [facility] called to inquire about some forms that were faxed to the off ice on 11/04/[address] Priest to fill out. She states that they were in regards to getting rep airs for a power wheel chair for this patient. She would like to know if they have been rece ived and if Dr. Priest has had a chance to complete them yet, or if he is willing to. Note th at they have not been scanned into the patient's chart yet. She can be reached at to discuss. documented in this encounter Plan of Treatment [...] [place] | | | | | | [address] | | | | | | | | +--------+ + + + + documented as of this encounter Visit Diagnoses Not on filedocumented in this encounter
--- OUTSIDE RECORDS SUMMARY | ~2019-11-15 | XMS | Encounter Summary ---
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 CENTER - | | | | | | LABORATORY | | + + + + + + | Absolute | 2.10 | 0.60 - 3.20 | [facility] | | | Lymphocytes | | K/uL | [facility] | | | | | | MEDICAL | | | | | | CENTER - | | | | | | LABORATORY | | + + + + + + | Absolute | 0.70 | 0.00 - 1.00 | [facility] | | | Monocytes | | K/uL | [facility] | | | | | | MEDICAL | | | | | | CENTER - | | | | | | LABORATORY | | + + + + + + | Absolute | 0.40 | 0.00 - 0.40 | [facility] | | | Eosinophils | | K/uL | [facility] | | | | | | MEDICAL | | | | | | CENTER - | | | | | | LABORATORY | | + + + + + + | Absolute | 0.10 | 0.00 - 0.10 | [facility] | | | Basophils | | K/uL | [facility] | [...] + | [facility] | [address] | [place] | [phone] | | [facility] | | [address] | | | - LABORATORY | | | | + + + + + | [facility] | [address] | [place] | | | [facility] | | [address] | | | - LABORATORY | | | | + + + + + Protime INR (07/08/2013 4:49 AM PDT) + + + + + + | Component | Value | Ref Range | Performed | Pathologist | | | | | At | Signature | + + + + + + | Prothrombin | 14.2 (H) | 11.3 - 13.9 | [facility] | | | Time | | seconds | [facility] | | | | | | [facility] | | | | | | CENTER - | | | | | | LABORATORY | | + + + + + + | INR | 1.11 (H) | 0.90 - 1.10 | [facility] | | | | | [...] + + | [facility] | [address] | [place] | [phone] | | [facility] | | [address] | | | - LABORATORY | | | | + + + + + | [facility] | [address] | [place] | | | [facility] | | [address], [facility] | | | - LABORATORY | | | | + + + + + Basic Metabolic Panel (07/08/2013 4:49 AM PDT) + + + + + + | Component | Value | Ref Range | Performed | Pathologist | | | | | At | Signature | + + + + + + | Na | 141 | 136 - 149 | [facility] | [...] + + + + | Cl | 106 | 98 - 109 mmol/L | [facility] | | | | | | [facility] | | | | | | MEDICAL | | | | | | CENTER - | | | | | | LABORATORY | | + + + + + + | CO2 | 28 | 24 - 31 mmol/L | [facility] | | | | | | [facility] | | | | | | MEDICAL | | | | | | CENTER - | | | | | | LABORATORY | | + + + + + + | Anion Gap | 7 | 3 - 16 mmol/L | [facility] | | | | | | [facility] | | | | | | MEDICAL | | | | | | CENTER - | | | | | | LABORATORY | | + + + + + + | Glucose | 131 (H) | 70 - 109 mg/dL | [facility] | | | | | | [facility] | | | | | | MEDICAL | | | | | | CENTER - | | | | | | LABORATORY | | + + + + + + | BUN | 3 (L) | 7 - 18 mg/dL | [facility] | | | | | | [facility] | | | | | | MEDICAL | | | | | | CENTER - | | | | | | LABORATORY | | + + + + + + | Creatinine | 0.57 (L) | 0.60 - 1.30 | [facility] | | | | | mg/dL | [facility] | | | | | | MEDICAL | | | | | | CENTER - | | | | | | LABORATORY | | + + + + + + | eGFR, | >60Comment: GLOMERULAR | >=60 | [facility] | | | non- | FILTRATION | mL/min/1.73m2 | [facility] | | | T[place]olese | RATE,ESTIMATED | | MEDICAL | | | | mL/min/1.52f3Tjtp than | | CENTER - | | [...] + + + + | Calcium | 8.7 | 8.3 - 10.5 | [facility] | | | | | mg/dL | [facility] | | | | | | MEDICAL | | | | | | CENTER - | | | | | | LABORATORY | | + + + + + + | BUN/Creatin | 5.3 | | [facility] | | | ine Ratio | | | [facility] | | [...] + | [facility] | [address] | [place], [place] | [phone] | | [facility] | | [address] | | | - LABORATORY | | | | + + + + + | [facility] | [address] | [place], [place] | | | [facility] | | [address], [facility] | | | - LABORATORY | | | | + + + + + CBC with Differential (07/08/2013 4:49 AM PDT) + + + + + + | Component | Value | Ref Range | Performed | Pathologist | | | | | At | Signature | + + + + + + | White Blood | 7.5 | 4.0 - 11.0 K/uL | [facility] | | | Cells | | | [facility] | | | | | | MEDICAL | | | | | | CENTER - | | | | | | LABORATORY | | + + + + + + | Red Blood | 3.09 (L) | 4.30 - 5.70 | [facility] | | | Cells | | M/uL | [facility] | | | | | | MEDICAL | | | | | | CENTER - | | | | | | LABORATORY | | + + + + + + | Hemoglobin | 8.9 (L) | 13.5 - 18.0 | [facility] | | | | | g/dL | [facility] | | | | | | MEDICAL | | | | | | CENTER - | | | | | | LABORATORY | | + + + + + + | Hematocrit | 26.8 (L) | 40.0 - 51.0 % | [facility] | | | | | | [facility] | | | | | | MEDICAL | | | | | | CENTER - | | | | | | LABORATORY | | + + + + + + | MCV | 86.5 | 83.0 - 101.0 fL | [facility] | | | | | | [facility] | | | | | | MEDICAL | | | | | | CENTER - | | | | | | LABORATORY | | + + + + + + | MCH | 28.8 | 28.0 - 35.0 pg | [facility] | | | | | | [facility] | | | | | | MEDICAL | | | | | | CENTER - | | | | | | LABORATORY | | + + + + + + | MCHC | 33.2 | 32.0 - 36.0 | [facility] | | | | | g/dL | [facility] | | | | | | MEDICAL | | | | | | CENTER - | | | | | | LABORATORY | | + + + + + + | RDW-CV | 13.1 | <15.0 % | [facility] | | | | | | [facility] | | | | | | MEDICAL | | | | | | CENTER - | | | | | | LABORATORY | | + + + + + + | Platelet | 163 | 140 - 440 K/uL | [facility] | | | Count | | | [facility] | | | | | | MEDICAL | | | | | | CENTER - | | | | | | LABORATORY | | + + + + + + | MPV | 7.8 | fL | [facility] | | | | | | [facility] | | | | | | MEDICAL | | | | | | CENTER - | | | | | | LABORATORY | | + + + + + + | % | 64.1 | 45.0 - 82.0 % | [facility] | | | Neutrophils | | | [facility] | | | | | | MEDICAL | | | | | | CENTER - | | | | | | LABORATORY | | + + + + + + | % | 21.8 | 20.0 - 45.0 % | [facility] | | | Lymphocytes | | | [facility] | | | | | | MEDICAL | | | | | | CENTER - | | | | | | LABORATORY | | + + + + + + | % Monocytes | 8.4 | 4.0 - 12.0 % | [facility] | | | | | | [facility] | | | | | | MEDICAL | | | | | | CENTER - | | | | | | LABORATORY | | + + + + + + | % | 4.8 | 0.0 - 5.0 % | [facility] | | | Eosinophils | | | [facility] | | | | | | MEDICAL | | | | | | CENTER - | | | | | | LABORATORY | | + + + + + + | % Basophils | 0.9 | 0.0 - 1.0 % | [facility] | | | | | | [facility] | | | | | | MEDICAL | | | | | | CENTER - | | | | | | LABORATORY | | + + + + + + | Absolute | 4.80 | 1.80 - 8.50 | [facility] | | | Neutrophils | | K/uL | [facility] | | | | | | MEDICAL | | | | | | CENTER - | | | | | | LABORATORY | | + + + + + + | Absolute | 1.60 | 0.60 - 3.20 | [facility] | [...] + + + + | Absolute | 0.40 | 0.00 - 0.40 | [facility] | | | Eosinophils | | K/uL | [facility] | [...] + + | [facility] | [address] | [place] | [phone] | | [facility] | | [address] | | | - LABORATORY | | | | + + + + + | [facility] | [address] | [place] | | | [facility] | | [address], [facility] | | | - LABORATORY | | | | + + + + + Basic Metabolic Panel (07/07/2013 4:13 AM PDT) + + + + + + | Component | Value | Ref Range | Performed | Pathologist | | | | | At | Signature | + + + + + + | Na | 140 | 136 - 149 | [facility] | | | | | mmol/L | [facility] | | | | | | MEDICAL | | | | | | CENTER - | | | | | | LABORATORY | | + + + + + + | K | 4.2 | 3.5 - 5.1 | [facility] | [...] + + + + | CO2 | 26 | 24 - 31 mmol/L | [facility] | | | | | | [facility] | | | | | | MEDICAL | | | | | | CENTER - | | | | | | LABORATORY | | + + + + + + | Anion Gap | 5 | 3 - 16 mmol/L | [facility] | | | | | | [facility] | | | | | | MEDICAL | | | | | | CENTER - | | | | | | LABORATORY | | + + + + + + | Glucose | 117 (H) | 70 - 109 mg/dL | [facility] | | | | | | [facility] | | | | | | MEDICAL | | | | | | CENTER - | | | | | | LABORATORY | | + + + + + + | BUN | 13 | 7 - 18 mg/dL | [facility] | | | | | | [facility] | | | | | | MEDICAL | | | | | | CENTER - | | | | | | LABORATORY | | + + + + + + | Creatinine | 0.60 | 0.60 - 1.30 | [facility] | | | | | mg/dL | [facility] | | | | | | MEDICAL | | | | | | CENTER - | | | | | | LABORATORY | | + + + + + + | eGFR, | >60Comment: GLOMERULAR | >=60 | [facility] | | | non- | FILTRATION | mL/min/1.73m2 | [facility] | | | [place] | RATE,ESTIMATED | | MEDICAL | | | | mL/min/1.11l2Gnhk than | | CENTER - | | [...] | | | | mg/dL | [facility] | | | | | | MEDICAL | | | | | | CENTER - | | | | | | LABORATORY | | + + + + + + | BUN/Creatin | 21.7 | | [facility] | | | ine Ratio | | | [facility] | | [...] + | [facility] | [address] | [place], [place] | [phone] | | [facility] | | [address] | | | - LABORATORY | | | | + + + + + | [facility] | [address] | [place], [place] | | | [facility] | | [id number] [place] [address] | | | - LABORATORY | | | | + + + + + CBC with Differential (07/07/2013 4:13 AM PDT) + + + + + + | Component | Value | Ref Range | Performed | Pathologist | | | | | At | Signature | + + + + + + | White Blood | 11.1 (H) | 4.0 - 11.0 K/uL | [facility] | | | Cells | | | [facility] | | | | | | MEDICAL | | | | | | CENTER - | | | | | | LABORATORY | | + + + + + + | Red Blood | 2.95 (L) | 4.30 - 5.70 | [facility] | | | Cells | | M/uL | [facility] | | | | | | MEDICAL | | | | | | CENTER - | | | | | | LABORATORY | | + + + + + + | Hemoglobin | 8.3 (L) | 13.5 - 18.0 | [facility] | | | | | g/dL | [facility] | | | | | | MEDICAL | | | | | | CENTER - | | | | | | LABORATORY | | + + + + + + | Hematocrit | 26.0 (L) | 40.0 - 51.0 % | [facility] | | | | | | [facility] | | | | | | MEDICAL | | | | | | CENTER - | | | | | | LABORATORY | | + + + + + + | MCV | 87.9 | 83.0 - 101.0 fL | [facility] [...] + + + + | MCHC | 32.1 | 32.0 - 36.0 | [facility] | | | | | g/dL | [facility] | | | | | | MEDICAL | | | | | | CENTER - | | | | | | LABORATORY | | + + + + + + | RDW-CV | 12.9 | <15.0 % | [facility] | | | | | | [facility] | | | | | | MEDICAL | | | | | | CENTER - | | | | | | LABORATORY | | + + + + + + | Platelet | 146 | 140 - 440 K/uL | [facility] | | | Count | | | [facility] | | | | | | MEDICAL | | | | | | CENTER - | | | | | | LABORATORY | | + + + + + + | MPV | 8.0 | fL | [facility] | | | | | | [facility] | | | | | | MEDICAL | | | | | | CENTER - | | | | | | LABORATORY | | + + + + + + | % | 75.2 | 45.0 - 82.0 % | [facility] | | | Neutrophils | | | [facility] | | | | | | MEDICAL | | | | | | CENTER - | | | | | | LABORATORY | | + + + + + + | % | 13.8 (L) | 20.0 - 45.0 % | [facility] | | | Lymphocytes | | | [facility] | | | | | | MEDICAL | | | | | | CENTER - | | | | | | LABORATORY | | + + + + + + | % Monocytes | 7.1 | 4.0 - 12.0 % | [facility] | | | | | | [facility] | | | | | | MEDICAL | | | | | | CENTER - | | | | | | LABORATORY | | + + + + + + | % | 3.3 | 0.0 - 5.0 % | [facility] | | | Eosinophils | | | [facility] | | | | | | MEDICAL | | | | | | CENTER - | | | | | | LABORATORY | | + + + + + + | % Basophils | 0.6 | 0.0 - 1.0 % | [facility] | | | | | | [facility] | | | | | | MEDICAL | | | | | | CENTER - | | | | | | LABORATORY | | + + + + + + | Absolute | 8.30 | 1.80 - 8.50 | [facility] | | | Neutrophils | | K/uL | [facility] | | | | | | MEDICAL | | | | | | CENTER - | | | | | | LABORATORY | | + + + + + + | Absolute | 1.50 | 0.60 - 3.20 | [facility] | | | Lymphocytes | | K/uL | [facility] | | | | | | MEDICAL | | | | | | CENTER - | | | | | | LABORATORY | | + + + + + + | Absolute | 0.80 | 0.00 - 1.00 | [facility] | | | Monocytes | | K/uL | [facility] | | | | | | MEDICAL | | | | | | CENTER - | | | | | | LABORATORY | | + + + + + + | Absolute | 0.40 | 0.00 - 0.40 | [facility] | | | Eosinophils | | K/uL | [facility] | [...] + + | [facility] | [address] | [place] | [phone] | | [facility] | | [address] | | | - LABORATORY | | | | + + + + + | [facility] | [address] | [place] | | | [facility] | | [address], [facility] | | | - LABORATORY | | | | + + + + + Protime INR (07/07/2013 4:12 AM PDT) + + + + + + | Component | Value | Ref Range | Performed | Pathologist | | | | | At | Signature | + + + + + + | Prothrombin | 19.9 (H) | 11.3 - 13.9 | [facility] | | | Time | | seconds | [facility] | | | | | | MEDICAL | | | | | | CENTER - | | | | | | LABORATORY | | + + + + + + | INR | 1.76 (H) | 0.90 - 1.10 | [facility] | | | | | [address] | [place] | [phone] | | [facility] | | [address] | | | - LABORATORY | | | | + + + + + | [facility] | [address] | [place] | | | [facility] | | [address], [facility] | | | - LABORATORY | | | | + + + + + PRODUCT: Plasma, Frozen <24 (07/07/2013 1:15 AM PDT) + + + + + + | Component | Value | Ref Range | Performed | Pathologist | | | | | At | Signature | + + + + + + | Product | Fresh Frozen Plasma | | [facility] | | | Code | Thawed | | [facility] | | | | | | MEDICAL | | | | | | CENTER - | | | | | | BLOOD BANK | | + + + + + + | UNIT # | [id number] | | [facility] | | | | | | [facility] | | | | | | MEDICAL | | | | | | CENTER - | | | | | | BLOOD BANK | | + + + + + + | UNIT ABO | O | | [facility] | | | | | | [facility] | | | | | | MEDICAL | | | | | | CENTER - | | | | | | BLOOD BANK | | + + + + + + | UNIT RH | POS | | [facility] | | | | | | [facility] | | | | | | MEDICAL | | | | | | CENTER - | | | | | | BLOOD BANK | | + + + + + + | Unit Status | Transfused | | [facility] | | | | | | [facility] | | | | | | MEDICAL | | | | | | CENTER - | | | | | | BLOOD BANK | | + + + + + + + + | Specimen | + + | | + + + + + + + | Performing | Address | City/State/Zipcode | Phone Number | | Organization | | | | + + + + + | [facility] | [address] | [place], [place] | | | [facility] | | [address] | | | - BLOOD BANK | | | | + + + + + PRODUCT: Plasma, Frozen <24 (07/07/2013 1:15 AM PDT) + + + + + + | Component | Value | Ref Range | Performed | Pathologist | | | | | At | Signature | + + + + + + | Product | Fresh Frozen Plasma | | [facility] | | | Code | Thawed | | [facility] | | | | | | MEDICAL | | | | | | CENTER - | | | | | | BLOOD BANK | | + + + + + + | UNIT # | [id number] | | [facility] | | | | | | [facility] | | | | | | MEDICAL | | | | | | CENTER - | | | | | | BLOOD BANK | | + + + + + + | UNIT ABO | O | | [facility] | | | | | | [facility] | | | | | | MEDICAL | | | | | | CENTER - | | | | | | BLOOD BANK | | + + + + + + | UNIT RH | POS | | [facility] | | | | | | [facility] | | | | | | MEDICAL | | | | | | CENTER - | | | | | | BLOOD BANK | | + + + + + + | Unit Status | Transfused | | [facility] | | | | | | [facility] | | | | | | [facility]ICAL | | | | | | CENTER - | | | | | | BLOOD BANK | | + + + + + + + + | Specimen | + + | | + + + + + + + | Performing | Address | City/State/Zipcode | Phone Number | | Organization | | | | + + + + + | [facility] | [address] | [place] | | | [facility] | | [address] | | | - BLOOD BANK | | | | + + + + + PRODUCT: Plasma, Frozen <24 (07/06/2013 7:15 PM PDT) + + + + + + | Component | Value | Ref Range | Performed | Pathologist | | | | | At | Signature | + + + + + + | Product | Fresh Frozen Plasma | | [facility] | | | Code | Thawed | | [facility] | | | | | | MEDICAL | | | | | | CENTER - | | | | | | BLOOD BANK | | + + + + + + | UNIT # | [id number] | | [facility] | | | | | | [facility] | | | | | | MEDICAL | | | | | | CENTER - | | | | | | BLOOD BANK | | + + + + + + | UNIT ABO | O | | [facility] | | | | | | [facility] | | | | | | MEDICAL | | | | | | CENTER - | | | | | | BLOOD BANK | | + + + + + + | UNIT RH | POS | | [facility] | | | | | | [facility] | | | | | | MEDICAL | | | | | | CENTER - | | | | | | BLOOD BANK | | + + + + + + | Unit Status | Transfused | | [facility] | | | | | | [facility] | | | | | | MEDICAL | | | | | | CENTER - | | | | | | BLOOD BANK | | + + + + + + + + | Specimen | + + | | + + + + + + + | Performing | Address | City/State/Zipcode | Phone Number | | Organization | | | | + + + + + | [facility] | [address] | [place] | | | [facility] | | [address] | | | - BLOOD BANK | | | | + + + + + PRODUCT: Plasma, Frozen <24 (07/06/2013 7:15 PM PDT) + + + + + + | Component | Value | Ref Range | Performed | Pathologist | | | | | At | Signature | + + + + + + | Product | Fresh Frozen Plasma | | [facility] | | | Code | Thawed | | [facility] | | | | | | MEDICAL | | | | | | CENTER - | | | | | | BLOOD BANK | | + + + + + + | UNIT # | [id number] | | [facility] | | | | | | [facility] | | | | | | MEDICAL | | | | | | CENTER - | | | | | | BLOOD BANK | | + + + + + + | UNIT ABO | O | | [facility] | | | | | | [facility] | | | | | | MEDICAL | | | | | | CENTER - | | | | | | BLOOD BANK | | + + + + + + | UNIT RH | POS | | [facility] | | | | | | [facility] | | | | | | MEDICAL | | | | | | CENTER - | | | | | | BLOOD BANK | | + + + + + + | Unit Status | Transfused | | [facility] | | | | | | [facility] | | | | | | MEDICAL | | | | | | CENTER - | | | | | | BLOOD BANK | | + + + + + + + + | Specimen | + + | | + + + + + + + | Performing | Address | City/State/Zipcode | Phone Number | | Organization | | | | + + + + + | [facility] | [address] | [place] | | | [facility] | | [address] | | | - BLOOD BANK | | | | + + + + + CBC with Differential (07/06/2013 3:27 PM PDT) + + + + + + | Component | Value | Ref Range | Performed | Pathologist | | | | | At | Signature | + + + + + + | White Blood | 14.6 (H) | 4.0 - 11.0 K/uL | [facility] | | | Cells | | | [facility] | | | | | | MEDICAL | | | | | | CENTER - | | | | | | LABORATORY | | + + + + + + | Red Blood | 3.17 (L) | 4.30 - 5.70 | [facility] | | | Cells | | M/uL | [facility] | | | | | | MEDICAL | | | | | | CENTER - | | | | | | LABORATORY | | + + + + + + | Hemoglobin | 8.9 (L) | 13.5 - 18.0 | [facility] | | | | | g/dL | [facility] | | | | | | MEDICAL | | | | | | CENTER - | | | | | | LABORATORY | | + + + + + + | Hematocrit | 27.7 (L) | 40.0 - 51.0 % | [facility] | | | | | | [facility] | | | | | | MEDICAL | | | | | | CENTER - | | | | | | LABORATORY | | + + + + + + | MCV | 87.4 | 83.0 - 101.0 fL | [facility] | | | | | | [facility] | | | | | | MEDICAL | | | | | | CENTER - | | | | | | LABORATORY | | + + + + + + | MCH | 28.2 | 28.0 - 35.0 pg | [facility] | | | | | | [facility] | | | | | | MEDICAL | | | | | | CENTER - | | | | | | LABORATORY | | + + + + + + | MCHC | 32.3 | 32.0 - 36.0 | [facility] | | | | | g/dL | [facility] | | | | | | MEDICAL | | | | | | CENTER - | | | | | | LABORATORY | | + + + + + + | RDW-CV | 13.3 | <15.0 % | [facility] | | | | | | [facility] | | | | | | MEDICAL | | | | | | CENTER - | | | | | | LABORATORY | | + + + + + + | Platelet | 154 | 140 - 440 K/uL | [facility] | | | Count | | | [facility] | | | | | | MEDICAL | | | | | | CENTER - | | | | | | LABORATORY | | + + + + + + | MPV | 8.0 | fL | [facility] | | | | | | [facility] | | | | | | MEDICAL | | | | | | CENTER - | | | | | | LABORATORY | | + + + + + + | % | 80.6 | 45.0 - 82.0 % | [facility] | | | Neutrophils | | | [facility] | | | | | | MEDICAL | | | | | | CENTER - | | | | | | LABORATORY | | + + + + + + | % | 8.7 (L) | 20.0 - 45.0 % | [facility] | | | Lymphocytes | | | [facility] | | | | | | MEDICAL | | | | | | CENTER - | | | | | | LABORATORY | | + + + + + + | % Monocytes | 7.4 | 4.0 - 12.0 % | [facility] | | | | | | [facility] | | | | | | [facility] | | | | | | CENTER - | | | | | | LABORATORY | | + + + + + + | % | 2.5 | 0.0 - 5.0 % | [facility] | | | Eosinophils | | | [facility] | | | | | | MEDICAL | | | | | | CENTER - | | | | | | LABORATORY | | + + + + + + | % Basophils | 0.8 | 0.0 - 1.0 % | [facility] | | | | | | [facility] | | | | | | [facility]ICAL | | | | | | CENTER - | | | | | | LABORATORY | | + + + + + + | Absolute | 11.70 (H) | 1.80 - 8.50 | [facility] | | | Neutrophils | | K/uL | [facility] | | | | | | [facility]ICAL | | | | | | CENTER - | | | | | | LABORATORY | | + + + + + + | Absolute | 1.30 | 0.60 - 3.20 | [facility] | | | Lymphocytes | | K/uL | [facility] | | | | | | MEDICAL | | | | | | CENTER - | | | | | | LABORATORY | | + + + + + + | Absolute | 1.10 (H) | 0.00 - 1.00 | [facility] | | | Monocytes | | K/uL | [facility] | | | | | | [facility] | | | | | | CENTER - | | | | | | LABORATORY | | + + + + + + | Absolute | 0.40 | 0.00 - 0.40 | [facility] | [...] + | [facility] | [address] | [place], [place] | [phone] | | [facility] | | [address] | | | - LABORATORY | | | | + + + + + | [facility] | [address] | [place], [place] | | | [facility] | | [address] [place] [address] | | | - LABORATORY | | | | + + + + + Basic Metabolic Panel (07/06/2013 3:27 PM PDT) + + + + + + | Component | Value | Ref Range | Performed | Pathologist | | | | | At | Signature | + + + + + + | Na | 141 | 136 - 149 | [facility] | [...] + + + + | CO2 | 25 | 24 - 31 mmol/L | [facility] | | | | | | [facility] | | | | | | MEDICAL | | | | | | CENTER - | | | | | | LABORATORY | | + + + + + + | Anion Gap | 7 | 3 - 16 mmol/L | [facility] | | | | | | [facility] | | | | | | MEDICAL | | | | | | CENTER - | | | | | | LABORATORY | | + + + + + + | Glucose | 113 (H) | 70 - 109 mg/dL | [facility] | | | | | | [facility] | | | | | | MEDICAL | | | | | | CENTER - | | | | | | LABORATORY | | + + + + + + | BUN | 25 (H) | 7 - 18 mg/dL | [facility] | | | | | | [facility] | | | | | | MEDICAL | | | | | | CENTER - | | | | | | LABORATORY | | + + + + + + | Creatinine | 0.80 | 0.60 - 1.30 | [facility] | | | | | mg/dL | [facility] | | | | | | MEDICAL | | | | | | CENTER - | | | | | | LABORATORY | | + + + + + + | eGFR, | >60Comment: GLOMERULAR | >=60 | [facility] | | | non- | FILTRATION | mL/min/1.73m2 | [facility] | | | [place] | RATE,ESTIMATED | | MEDICAL | | | | mL/min/1.55m5Gtxz than | | CENTER - | | [...] + + + + | Calcium | 8.1 (L) | 8.3 - 10.5 | [facility] | | | | | mg/dL | [facility] | | | | | | [facility] | | | | | | CENTER - | | | | | | LABORATORY | | + + + + + + | BUN/Creatin | 31.3 | | [facility] | | | ine [...] + | [facility] | [address] | [place], [place] | [phone] | | [facility] | | [address] | | | - LABORATORY | | | | + + + + + | [facility] | [address] | [place], [place] | | | [facility] | | [address], [facility] | | | - LABORATORY | | | | + + + + + Protime INR (07/06/2013 3:25 PM PDT) + + + + + + | Component | Value | Ref Range | Performed | Pathologist | | | | | At | Signature | + + + + + + | Prothrombin | 20.1 (H) | 11.3 - 13.9 | [facility] | | | Time | | seconds | [facility] | | | | | | MEDICAL | | | | | | CENTER - | | | | | | LABORATORY | | + + + + + + | INR | 1.78 (H) | 0.90 - 1.10 | [facility] | | | | | [...] + | [facility] | [address] | [place] | [phone] | | [facility] | | [address] | | | - LABORATORY | | | | + + + + + | [facility] | [address] | [place] | | | [facility] | | [id number] | | | - LABORATORY | | | | + + + + + Osmolality, Urine (07/06/2013 6:55 AM PDT) + +-------+ + + + | Component | Value | Ref Range | Performed | Pathologist | | | | | At | Signature | + +-------+ + + + | OSMO URINE | 236 | mOsm/kg | [facility] | | | | | | [facility] | | | | | | MEDICAL | | | | | | CENTER - | | | | | | LABORATORY | | + +-------+ + + + + + | Specimen | + + | Urine - Urine | | specimen from ureter | | (specimen) | + + + + + + + | Performing | Address | City/State/Zipcode | Phone Number | | Organization | | | | + + + + + | [facility] | [address] | [place], [place] | [phone] | | [facility] | | [address] | | | - LABORATORY | | | | + + + + + | [facility] | [address] | [place], [place] | | | [facility] | | [id number] | | | - LABORATORY | | | | + + + + + Creatinine, Urine, Random (07/06/2013 6:54 AM PDT) + + + + + + | Component | Value | Ref Range | Performed | Pathologist | | | | | At | Signature | + + + + + + | Creatinine, | 21 | mg/dL | [facility] | | | Urine, | | | [facility] | | | Random | | | MEDICAL | | | | | | CENTER - | | | | | | LABORATORY | | + + + + + + | Comment | Comment: The reference | | [facility] | | | | range and other method | | [facility] | | | | performance | | MEDICAL | | | | specifications have not | | CENTER - | | | | been established for | | LABORATORY | | | | this test. These results | | | | | | should be integrated | | | | | | into the clinical | | | | | | context for | | | | | | interpretation. | | | | + + + [...] [address] | [place] | [phone] | | [facility] | | [address] | | | - LABORATORY | | | | + + + + + | [facility] | [address] | [place] | | | [facility] | | [id number] | | | - LABORATORY | | | | + + + + + Sodium, Urine, Random (07/06/2013 6:54 AM PDT) + +-------+ + + + | Component | Value | Ref Range | Performed | Pathologist | | | | | At | Signature | + +-------+ + + + | Sodium, | 54 | 27 - 287 mmol/L | [facility] | | | Urine | | | [facility] | | | Random | | | MEDICAL | | | [...] | + + + + + | [facility] | [address] | [place], [place] | [phone] | | [facility] | | [address] | | | - LABORATORY | | | | + + + + + | [facility] | [address] | [place], [place] | | | [facility] | | [address], [facility] | | | - LABORATORY | | | | + + + + + Urinalysis (07/06/2013 6:54 AM PDT) + + + + + + | Component | Value | Ref Range | Performed | Pathologist | | | | | At | Signature | + + + + + + | Color, | Yellow | Light Yellow, | [facility] | | | Urine | | Yellow | [facility] | | | | | | MEDICAL | | | | | | CENTER - | | | | | | LABORATORY | | + + + + + + | Clarity, | Clear | Clear | [facility] | | | [...] + + + + | Specific | <=1.005 | 1.001 - 1.030 | [facility] | | | [place], | | | [facility] | | | Urine | | | MEDICAL | | | | | | CENTER - | | | | | | LABORATORY | | + + + + + + | Protein, | Negative | Negative, | [facility] | | | [...] + + + + | Ketones, | Negative | Negative | [facility] | | | Urine | | | [facility] | | | | | | MEDICAL | | | | | | CENTER - | | | | | | LABORATORY | | + + + + + + | Bilirubin, | Negative | Negative | [facility] | | | Urine | | | [facility] | | | | | | MEDICAL | | | | | | CENTER - | | | | | | LABORATORY | | + + + + + + | Nitrite, | Negative | Negative | [facility] | [...] + + + + | Urobilinoge | 0.2 E.U./dL | 0.2 E.U./dL | [facility] | | | n, Urine | | | [facility] | | | | | [...] + + | [facility] | [address] | [place] | [phone] | | [facility] | | [address] | | | - LABORATORY | | | | + + + + + | [facility] | [address] | [place] | | | [facility] | | [address], [facility] | | | - LABORATORY | | | | + + + + + Protime INR (07/06/2013 4:39 AM PDT) + + + + + + | Component | Value | Ref Range | Performed | Pathologist | | | | | At | Signature | + + + + + + | Prothrombin | 24.3 (H) | 11.3 - 13.9 | [facility] | | | Time | | seconds | [facility] | | | | | | MEDICAL | | | | | | CENTER - | | | | | | LABORATORY | | + + + + + + | INR | 2.30 (H) | 0.90 - 1.10 | [facility] | | | | | [...] [address] | [place] | [phone] | | [facility] | | [address] | | | - LABORATORY | | | | + + + + + | [facility] | [address] | [place] | | | [facility] | | [address] | | | - LABORATORY | | | | + + + + + CBC with Differential (07/06/2013 4:39 AM PDT) + + + + + + | Component | Value | Ref Range | Performed | Pathologist | | | | | At | Signature | + + + + + + | White Blood | 18.7 (H) | 4.0 - 11.0 K/uL | [facility] | | | Cells | | | [facility] | | | | | | MEDICAL | | | | | | CENTER - | | | | | | LABORATORY | | + + + + + + | Red Blood | 3.36 (L) | 4.30 - 5.70 | [facility] | | | Cells | | M/uL | [facility] | | | | | | MEDICAL | | | | | | CENTER - | | | | | | LABORATORY | | + + + + + + | Hemoglobin | 9.5 (L) | 13.5 - 18.0 | [facility] | | | | | g/dL | [facility] | | | | | | MEDICAL | | | | | | CENTER - | | | | | | LABORATORY | | + + + + + + | Hematocrit | 29.5 (L) | 40.0 - 51.0 % | [facility] | | | | | | [facility] | | | | | | MEDICAL | | | | | | CENTER - | | | | | | LABORATORY | | + + + + + + | MCV | 87.8 | 83.0 - 101.0 fL | [facility] [...] + + + + | MCHC | 32.2 | 32.0 - 36.0 | [facility] | | | | | g/dL | [facility] | | | | | | MEDICAL | | | | | | CENTER - | | | | | | LABORATORY | | + + + + + + | RDW-CV | 13.5 | <15.0 % | [facility] | | | | | | [facility] | | | | | | MEDICAL | | | | | | CENTER - | | | | | | LABORATORY | | + + + + + + | Platelet | 165 | 140 - 440 K/uL | [facility] | | | Count | | | [facility] | | | | | | MEDICAL | | | | | | CENTER - | | | | | | LABORATORY | | + + + + + + | MPV | 7.9 | fL | [facility] | | | | | | [facility] | | | | | | MEDICAL | | | | | | CENTER - | | | | | | LABORATORY | | + + + + + + | % | 89.6 (H) | 45.0 - 82.0 % | [facility] | | | Neutrophils | | | [facility] | | | | | | MEDICAL | | | | | | CENTER - | | | | | | LABORATORY | | + + + + + + | % | 5.1 (L) | 20.0 - 45.0 % | [facility] | | | Lymphocytes | | | [facility] | | | | | | MEDICAL | | | | | | CENTER - | | | | | | LABORATORY | | + + + + + + | % Monocytes | 5.0 | 4.0 - 12.0 % | [facility] | | | | | | [facility] | | | | | | MEDICAL | | | | | | CENTER - | | | | | | LABORATORY | | + + + + + + | % | 0.1 | 0.0 - 5.0 % | [facility] | | | Eosinophils | | | [facility] | | | | | | MEDICAL | | | | | | CENTER - | | | | | | LABORATORY | | + + + + + + | % Basophils | 0.2 | 0.0 - 1.0 % | [facility] | | | | | | [facility] | | | | | | MEDICAL | | | | | | CENTER - | | | | | | LABORATORY | | + + + + + + | Absolute | 16.80 (H) | 1.80 - 8.50 | [facility] | | | Neutrophils | | K/uL | [facility] | | | | | | MEDICAL | | | | | | CENTER - | | | | | | LABORATORY | | + + + + + + | Absolute | 0.90 | 0.60 - 3.20 | [facility] | | | Lymphocytes | | K/uL | [facility] | | | | | | MEDICAL | | | | | | CENTER - | | | | | | LABORATORY | | + + + + + + | Absolute | 0.90 | 0.00 - 1.00 | [facility] | | | Monocytes | | K/uL | [facility] | | | | | | MEDICAL | | | | | | CENTER - | | | | | | LABORATORY | | + + + + + + | Absolute | 0.00 | 0.00 - 0.40 | [facility] | | | Eosinophils | | K/uL | [facility] | | | | | | MEDICAL | | | | | | CENTER - | | | | | | LABORATORY | | + + + + + + | Absolute | 0.00 | 0.00 - 0.10 | [facility] | [...] | + + + + + | [facility] | [address] | [place], [place] | [phone] | | [facility] | | [address] | | | - LABORATORY | | | | + + + + + | [facility] | [address] | [place], [place] | | | [facility] | | [address], [facility] | | | - LABORATORY | | | | + + + + + Magnesium (07/06/2013 4:38 AM PDT) + +-------+ + + + | Component | Value | Ref Range | Performed | Pathologist | | | | | At | Signature | + +-------+ + + + | Magnesium | 2.0 | 1.8 - 2.5 mg/dL | [facility] | | | | | [...] + + | [facility] | [address] | [place] | [phone] | | [facility] | | [address] | | | - LABORATORY | | | | + + + + + | [facility] | [address] | [place] | | | [facility] | | [address] | | | - LABORATORY | | | | + + + + + Comprehensive Metabolic Panel (07/06/2013 4:38 AM PDT) + + + + + + | Component | Value | Ref Range | Performed | Pathologist | | | | | At | Signature | + + + + + + | Na | 139 | 136 - 149 | [facility] | | | | | mmol/L | [facility] | | | | | | MEDICAL | | | | | | CENTER - | | | | | | LABORATORY | | + + + + + + | K | 3.4 (L) | 3.5 - 5.1 | [facility] | | | | | mmol/L | [facility] | | | | | | MEDICAL | | | | | | CENTER - | | | | | | LABORATORY | | + + + + + + | Cl | 111 (H) | 98 - 109 mmol/L | [facility] | | | | | | [facility] | | | | | | MEDICAL | | | | | | CENTER - | | | | | | LABORATORY | | + + + + + + | CO2 | 20 (L) | 24 - 31 mmol/L | [facility] [...] + + + + | Glucose | 199 (H) | 70 - 109 mg/dL | [facility] | | | | | | [facility] | | | | | | MEDICAL | | | | | | CENTER - | | | | | | LABORATORY | | + + + + + + | BUN | 51 (H) | 7 - 18 mg/dL | [facility] | | | | | | [facility] | | | | | | MEDICAL | | | | | | CENTER - | | | | | | LABORATORY | | + + + + + + | Creatinine | 2.18 (H) | 0.60 - 1.30 | [facility] | | | | | mg/dL | [facility] | | | | | | MEDICAL | | | | | | CENTER - | | | | | | LABORATORY | | + + + + + + | eGFR, | 33 (L)Comment: | >=60 | [facility] | | | non- | GLOMERULAR FILTRATION | mL/min/1.73m2 | [facility] | | | Togolese | RATE,ESTIMATED | | MEDICAL | | | | mL/min/1.80n5Ixgu than | | CENTER - | | [...] + + + + | Calcium | 7.4 (L) | 8.3 - 10.5 | [facility] | | | | | mg/dL | [facility] | | | | | | MEDICAL | | | | | | CENTER - | | | | | | LABORATORY | | + + + + + + | Albumin | 2.8 (L) | 3.2 - 5.0 g/dL | [facility] | | | | | | [facility] | | | | | | MEDICAL | | | | | | CENTER - | | | | | | LABORATORY | | + + + + + + | Bilirubin | 0.8 | 0.1 - 1.5 mg/dL | [facility] | | | Total | | | [facility] | | | | | | MEDICAL | | | | | | CENTER - | | | | | | LABORATORY | | + + + + + + | Total | 5.7 (L) | 6.0 - 7.8 g/dL | [facility] | | | Protein | | | [facility] | | | | | | MEDICAL | | | | | | CENTER - | | | | | | LABORATORY | | + + + + + + | AST | 44 (H) | 10 - 42 U/L | [facility] | | | | | | [facility] | | | | | | MEDICAL | | | | | | CENTER - | | | | | | LABORATORY | | + + + + + + | ALT | 21 | 6 - 45 U/L | [facility] | | | | | | [facility] | | | | | | MEDICAL | | | | | | CENTER - | | | | | | LABORATORY | | + + + + + + | Alkaline | 55 | 40 - 110 U/L | [facility] [...] + + + + | Albumin/Karly | 1.0 | | [facility] | | | bulin Ratio | | | [facility] | | | | | | MEDICAL | | | | | | CENTER - | | | | | | LABORATORY | | + + + + + + | BUN/Creatin | 23.4 | | [facility] | | | ine [...] + | [facility] | [address] | [place] | [phone] | | [facility] | | [address] | | | - LABORATORY | | | | + + + + + | [facility] | [address] | [place] | | | [facility] | | [address], [facility] | | | - LABORATORY | | | | + + + + + Culture, MRSA (07/06/2013 1:46 AM PDT) + + + + + + | Component | Value | Ref Range | Performed | Pathologist | | | | | At | Signature | + + + + + + | Culture | Negative for MRSA by | | [facility] | | | | chromogenic agar method | | [facility] | | | | | | MEDICAL | | | | | | CENTER - | | | | | | LABORATORY | | + + + + + + + + | Specimen | + + | Respiratory - Both | | anterior nares (body | | structure) | + + + + + + + | Performing | Address | City/State/Zipcode | Phone Number | | Organization | | | | + + + + + | [facility] | [address] | [place], [place] | [phone] | | [facility] | | [address] | | | - LABORATORY | | | | + + + + + | [facility] | [address] | [place], [place] | | | [facility] | | [address] [place] [address] | | | - LABORATORY | | | | + + + + + Sedimentation Rate (07/06/2013 1:43 AM PDT) + +--------+ + + + | Component | Value | Ref Range | Performed | Pathologist | | | | | At | Signature | + +--------+ + + + | Erythrocyte | 73 (H) | <15 mm/hr | [facility] | | | | | | [facility] | | | Sedimentati | | | MEDICAL | | | on Rate | | | CENTER - | | | | | | LABORATORY | | + +--------+ + + + + + | Specimen | + + | Blood | + + + + + + + | Performing | Address | City/State/Zipcode | Phone Number | | Organization | | | | + + + + + | [facility] | [address] | [place] | [phone] | | [facility] | | [address] | | | - LABORATORY | | | | + + + + + | [facility] | [address] | [place], [place] | | | [facility] | | [address], [facility] | | | - LABORATORY | | | | + + + + + Procalcitonin, Serum (07/06/2013 1:43 AM PDT) + + + + + + | Component | Value | Ref Range | Performed | Pathologist | | | | | At | Signature | + + + + + + | Procalciton | 136.64 | ng/mL | [facility] | | | in | | | [facility] | | | | | | MEDICAL | | | | | | CENTER - | | | | | | LABORATORY | | + + + + + + | Comment | Comment: < 0.50 | | [facility] | | | | ng/mL:Procalcitonin | | [facility] | | | | levels below 0.50 ng/mL | | MEDICAL | | | | on the first day of | | CENTER - | | | | admission represents a | | LABORATORY | | | | low risk for progression | | | | | | to severe sepsis and/or | | | | | | septic shock, however | | | | | | these do not exclude an | | | | | | infection, because | | | | | | localized infections | | | | | | (without systemic signs) | | | | | | may also be associated | | | | | | with such low levels. | | | | | | > 2.00 | | | | | | ng/mL:Procalcitonin | | | | | | levels above 2.00 ng/mL | | | | | | on the first day of | | | | | | admission represents a | | | | | | high risk for | | | | | | progression to severe | | | | | | sepsis and/or septic | | | | | | shock. If the | | | | | | procalcitonin | | | | | | measurement is performed | | | | | | shortly after the | | | | | | systemic infection | | | | | | process has started | | | | | | (usually less than 6 | | | | | | hours), these values may | | | | | | still be low. As | | | | | | various non-infectious | | | | | | conditions are known to | | | | | | induce procalcitonin as | | | | | | well, procalcitonin | | | | | | levels between 0.50 | | | | | | ng/mL and 2.00 ng/mL | | | | | | should be reviewed | | | | | | carefully to take into | | | | | | account the specific | | | | | | clinical background and | | | | | | condition(s) of the | | | | | | individual patient. | | | | + + + + + + + + | Specimen | + + | Blood | + + + + + + + | Performing | Address | City/State/Zipcode | Phone Number | | Organization | | | | + + + + + | [facility] | [address] | [place] | [phone] | | [facility] | | [address] | | | - LABORATORY | | | | + + + + + | [facility] | [address] | [place], [place] | | | [facility] | | [address], [facility] | | | - LABORATORY | | | | + + + + + Lactic Acid (07/06/2013 1:43 AM PDT) + +-------+ + + + | Component | Value | Ref Range | Performed | Pathologist | | | | | At | Signature | + +-------+ + + + | Lactate | 2.1 | 0.5 - 2.2 | [facility] | | | | | mmol/L | [facility] | | | | | [...] + | [facility] | [address] | [place], [place] | [phone] | | [facility] | | [address] | | | - LABORATORY | | | | + + + + + | [facility] | [address] | [place], [place] | | | [facility] | | [address], [facility] | | | - LABORATORY | | | | + + + + + Type and Screen (07/05/2013 10:55 PM PDT) + + + + + + | Component | Value | Ref Range | Performed | Pathologist | | | | | At | Signature | + + + + + + | ABO | O | | [facility] | | | | | | [facility] | | | | | | MEDICAL | | | | | | CENTER - | | | | | | BLOOD BANK | | + + + + + + | Rh Type | Positive | | [facility] | | | | | | [facility] | | | | | | MEDICAL | | | | | | CENTER - | | | | | | BLOOD BANK | | + + + + + + | Antibody | Negative | | [facility] | | | Screen | | | [facility] | | | | | | MEDICAL | | | | | | CENTER - | | | | | | BLOOD BANK | | + + + + + + + + | Specimen | + + | Blood specimen | | (specimen) | + + + + + + + | Performing | Address | City/State/Zipcode | Phone Number | | Organization | | | | + + + + + | [facility] | [address] | [place], [place] | | | [facility] | | [address] | | | - BLOOD BANK | | | | + + + + + XR Chest AP Portable (07/05/2013 9:41 PM PDT) + + | Specimen | + + | | + + + + + | Narrative | Performed At | + + + | SINGLE AP CHEST 07/05/2013 9:32 PM CLINICAL HISTORY: Fever, oxygen | [facility] | | saturation of 91% COMPARISON: CHEST RADIOGRAPH 06/04/2013 | LAB | | FINDINGS: The cardiomediastinal silhouette and pulmonary vasculature | | | are unremarkable. Mild hazy reticular opacity at the lung bases is | | | similar to previous and likely accentuated by low lung volumes. The | | | upper lung saleem are clear. No pneumothorax or pleural effusion | | | is visible. Everardo and screw fusion hardware again projects over the | | | cervical and upper thoracic spine. Bones and soft tissues are | | | otherwise unremarkable. IMPRESSION - 1. SIMILAR MILD | | | BIBASILAR RETICULAR OPACITY, FAVORING AT LEAST A COMPONENT OF | | | ATELECTASIS IN THE SETTING OF LOW LUNG VOLUMES. CONSIDER FOLLOW-UP | | | PA AND LATERAL RADIOGRAPHS. Dictated and Signed by: Gilmar Henriquez | | | Electronically signed: 07/06/2013 12:51 PM | | + + + + + | Procedure Note | + + | Gideon, Rad Results In - 07/06/2013 12:54 PM PDT SINGLE AP CHEST 07/05/2013 9:32 PM | | | | CLINICAL HISTORY: Fever, oxygen saturation of 91% | | | | COMPARISON: CHEST RADIOGRAPH 06/04/2013 | | | | FINDINGS: The cardiomediastinal silhouette and pulmonary vasculature are | | unremarkable. Mild hazy reticular opacity at the lung bases is similar to | | previous and likely accentuated by low lung volumes. The upper lung saleem are | | clear. No pneumothorax or pleural effusion is visible. Everardo and screw fusion | | hardware again projects over the cervical and upper thoracic spine. Bones and | | soft tissues are otherwise unremarkable. | | | | IMPRESSION - | | | | 1. SIMILAR MILD BIBASILAR RETICULAR OPACITY, FAVORING AT LEAST A COMPONENT OF | | ATELECTASIS IN THE SETTING OF LOW LUNG VOLUMES. CONSIDER FOLLOW-UP PA AND | | LATERAL RADIOGRAPHS. | | | | Dictated and Signed by: Gilmar Henriquez MD | | Electronically signed: 07/06/2013 12:51 PM | + + + +---------+ + + | Performing | Address | City/State/Zipcode | Phone Number | | Organization | | | | + +---------+ + + | [facility] | | | [phone] | + +---------+ + + | [facility] | | | [phone] | + +---------+ + + Culture, Urine (07/05/2013 9:13 PM PDT) + + + + + + | Component | Value | Ref Range | Performed | Pathologist | | | | | At | Signature | + + + + + + | Culture | <10,000 CFU/ml Mixed | | [facility] | | | | reinier (multiple | | [facility] | | | | morphologies | | MEDICAL | | | | present)Comment: | | CENTER - | | | | Suggests contamination | | LABORATORY | | | | with urogenital or skin | | | | | | reinier. | | | | + + + + + + + + | Specimen | + + | Urine | + + + + + + + | Performing | Address | City/State/Zipcode | Phone Number | | Organization | | | | + + + + + | [facility] | [address] | [place], [place] | [phone] | | [facility] | | [address] | | | - LABORATORY | | | | + + + + + | [facility] | [address] | [place] | | | [facility] | | [address] [place] [address] | | | - LABORATORY | | | | + + + + + Urinalysis with Microscopic with Culture if Indicated (07/05/2013 9:13 PM PDT) + + + + + + [...] + + + + | Clarity, | Turbid (A) | Clear | [facility] | | | Urine | | | [facility] | | | | | | MEDICAL | | | | | | CENTER - | | | | | | LABORATORY | | + + + + + + | pH, Urine | 7.5 | 5.0 - 8.0 | [facility] | | | | | | [facility] | | | | | | MEDICAL | | | | | | CENTER - | | | | | | LABORATORY | | + + + + + + | Specific | 1.025 | 1.001 - 1.030 | [facility] | | | [place], | | | [facility] | | | Urine | | | MEDICAL | | | | | | CENTER - | | | | | | LABORATORY | | + + + + + + | Protein, | 300 mg/dL (A) | Negative, | [facility] | | | Urine | | Trace, 30 mg/dL | [facility] | | | | | | MEDICAL | | | | | | CENTER - | | | | | | LABORATORY | | + + + + + + | Blood, | Moderate (A) | Negative | [facility] | | | Urine | | | [facility] | | | | | | MEDICAL | | | | | | CENTER - | | | | | | LABORATORY | | + + + + + + | Glucose, | 100 mg/dL (A) | Negative | [facility] | | | Urine | | | [facility] | | | | | | MEDICAL | | | | | | CENTER - | | | | | | LABORATORY | | + + + + + + | Ketones, | Negative | Negative | [facility] | | | Urine | | | [facility] | | | | | | MEDICAL | | | | | | CENTER - | | | | | | LABORATORY | | + + + + + + | Bilirubin, | Negative | Negative | [facility] | | | Urine | | | [facility] | | | | | | MEDICAL | | | | | | CENTER - | | | | | | LABORATORY | | + + + + + + | Nitrite, | Negative | Negative | [facility] | | | Urine | | | [facility] | | | | | | MEDICAL | | | | | | CENTER - | | | | | | LABORATORY | | + + + + + + | Leukocyte | Negative | Negative | [facility] | | | Esterase, | | | [facility] | | | Urine | | | MEDICAL | | | | | | CENTER - | | | | | | LABORATORY | | + + + + + + | Urobilinoge | 0.2 E.U./dL | 0.2 E.U./dL | [facility] | | | n, Urine | | | [facility] | | | | | | MEDICAL | | | | | | CENTER - | | | | | | LABORATORY | | + + + + + + | White Blood | 10-15 (A) | 0 - 2 /HPF | [facility] | | | Cells, | | | [facility] | | | Urine | | | MEDICAL | | | | | | CENTER - | | | | | | LABORATORY | | + + + + + + | Red Blood | >100 (A) | 0 - 2 /HPF | [facility] | | | Cells, | | | [facility] | | | Urine | | | MEDICAL | | | | | | CENTER - | | | | | | LABORATORY | | + + + + + + | Squamous | 2-5 (A) | 0 - 2 /LPF | [facility] | | | Epithelial | | | [facility] | | | Cells, | | | MEDICAL | | | Urine | | | CENTER - | | | | | | LABORATORY | | + + + + + + | Bacteria, | Negative | Negative /HPF | [facility] | | | Urine | | | [facility] | | | | | | MEDICAL | | | | | | CENTER - | | | | | | LABORATORY | | + + + + + + + + | Specimen | + + | Urine | + + + + + + + | Performing | Address | City/State/Zipcode | Phone Number | | Organization | | | | + + + + + | [facility] | [address] | [place] | [phone] | | [facility] | | [address] | | | - LABORATORY | | | | + + + + + | [facility] | [address] | [place] | | | [facility] | | [address], [facility] | | | - LABORATORY | | | | + + + + + Hepatic Function Panel (07/05/2013 8:58 PM PDT) + +-------+ + + + | Component | Value | Ref Range | Performed | Pathologist | | | | | At | Signature | + +-------+ + + + | Bilirubin | 0.7 | 0.1 - 1.5 mg/dL | [facility] | | | Total | | | [facility] | | | | | | MEDICAL | | | | | | CENTER - | | | | | | LABORATORY | | + +-------+ + + + | Total | 7.1 | 6.0 - 7.8 g/dL | [facility] | | | Protein | | | [facility] | | | | | | MEDICAL | | | | | | CENTER - | | | | | | LABORATORY | | + +-------+ + + + | Albumin | 3.3 | 3.2 - 5.0 g/dL | [facility] | | | | | | [facility] | | | | | | MEDICAL | | | | | | CENTER - | | | | | | LABORATORY | | + +-------+ + + + | AST | 29 | 10 - 42 U/L | [facility] | | | | | | [facility] | | | | | | MEDICAL | | | | | | CENTER - | | | | | | LABORATORY | | + +-------+ + + + | ALT | 18 | 6 - 45 U/L | [facility] | | | | | | [facility] | | | | | | MEDICAL | | | | | | CENTER - | | | | | | LABORATORY | | + +-------+ + + + | Alkaline | 65 | 40 - 110 U/L | [facility] | | | Phosphatase | | | [facility] | | | | | | MEDICAL | | | | | | CENTER - | | | | | | LABORATORY | | + +-------+ + + + | Globulin | 3.8 | g/dL | [facility] | | | | | | [facility] | | | | | | MEDICAL | | | | | | CENTER - | | | | | | LABORATORY | | + +-------+ + + + | Albumin/Karly | 0.9 | | [facility] | | | bulin Ratio | | | [facility] | | | | | | MEDICAL | | | | | | CENTER - | | | | | | LABORATORY | | + +-------+ + + + | Bilirubin, | 0.20 | 0.00 - 0.20 | [facility] | | | Direct | | mg/dl | [facility] | | | | [...] + | [facility] | [address] | [place], [place] | [phone] | | [facility] | | [address] | | | - LABORATORY | | | | + + + + + | [facility] | [address] | [place], [place] | | | [facility] | | [address] [place] [address] | | | - LABORATORY | | | | + + + + + Culture, Blood (07/05/2013 8:58 PM PDT) + + + + + + | Component | Value | Ref Range | Performed | Pathologist | | | | | At | Signature | + + + + + + | Culture | Escherichia coli | | [facility] | | | | | | [facility] | | | | | | MEDICAL | | | | | | CENTER - | | | | | | LABORATORY | | + + + + + + | Gram Stain | Gram negative | | [facility] | | | Result | rodsComment: 4 of 4 | | [facility] | | | | bottles positive | | MEDICAL | | | | | | CENTER - | | | | | | LABORATORY | | + + + + + + + + | Specimen | + + | Blood - Peripheral | | blood specimen | | (specimen) | + + + + +--------+ [...] | Escherichia coli | Cefoxitin | | <=4: Sensitive | + + [...] [address] | [place] | [phone] | | [facility] | | [address] | | | - LABORATORY | | | | + + + + + | [facility] | [address] | [place] | | | [facility] | | [phone], [facility] | | | - LABORATORY | | | | + + + + + Culture, Blood (07/05/2013 8:58 PM PDT) + + + + + + | Component | Value | Ref Range | Performed | Pathologist | | | | | At | Signature | + + + + + + | Culture | Gram Negative Rods | | [facility] | | | | [...] (specimen) | + + + + + | Narrative | Performed At | + + + | 4 of 4 bottles positive for gram negative bacilli. Please see | [facility] | | [id number] for ID and sensitivity. | [facility] | | | [facility] | | | - LABORATORY | + + + + + + + + | Performing | Address | City/State/Zipcode | Phone Number | | Organization | | | | + + + + + | [facility] | [address] | [place], [place] | [phone] | | [facility] | | [address] | | | - LABORATORY | | | | + + + + + | [facility] | [address] | [place], [place] | | | [facility] | | [phone], [facility] | | | - LABORATORY | | | | + + + + + Basic Metabolic Panel (07/05/2013 8:58 PM PDT) + + + + + + | Component | Value | Ref Range | Performed | Pathologist | | | | | At | Signature | + + + + + + | Na | 135 (L) | 136 - 149 | [facility] | | | | | mmol/L | [facility] | | | | | | MEDICAL | | | | | | CENTER - | | | | | | LABORATORY | | + + + + + + | K | 4.7 | 3.5 - 5.1 | [facility] | | | | | mmol/L | [facility] | | | | | | MEDICAL | | | | | | CENTER - | | | | | | LABORATORY | | + + + + + + | Cl | 101 | 98 - 109 mmol/L | [facility] | | | | | | [facility] | | | | | | MEDICAL | | | | | | CENTER - | | | | | | LABORATORY | | + + + + + + | CO2 | 20 (L) | 24 - 31 mmol/L | [facility] | | | | | | [facility] | | | | | | MEDICAL | | | | | | CENTER - | | | | | | LABORATORY | | + + + + + + | Anion Gap | 14 | 3 - 16 mmol/L | [facility] | | | | | [facility] | | | | | | MEDICAL | | | | | | CENTER - | | | | | | LABORATORY | | + + + + + + | Glucose | 108 | 70 - 109 mg/dL | [facility] | | | | | [facility] | | | | | | MEDICAL | | | | | | CENTER - | | | | | | LABORATORY | | + + + + + + | BUN | 54 (H) | 7 - 18 mg/dL | [facility] | | | | | | [facility] | | | | | | MEDICAL | | | | | | CENTER - | | | | | | LABORATORY | | + + + + + + | Creatinine | 2.23 (H) | 0.60 - 1.30 | [facility] | | | | | mg/dL | [facility] | | | | | | MEDICAL | | | | | | CENTER - | | | | | | LABORATORY | | + + + + + + | eGFR, | 32 (L)Comment: | >=60 | [facility] | | | non- | GLOMERULAR FILTRATION | mL/min/1.73m2 | [facility] | | | [place]ese | RATE,ESTIMATED | | MEDICAL | | | | mL/min/1.10a8Agoe than | | CENTER - | | [...] + + + + | Calcium | 8.8 | 8.3 - 10.5 | [facility] | | | | | mg/dL | [facility] | | | | | | MEDICAL | | | | | | CENTER - | | | | | | LABORATORY | | + + + + + + | BUN/Creatin | 24.2 | | [facility] | | | ine Ratio | | | [facility] | | [...] [address] | [place] | [phone] | | [facility] | | [address] | | | - LABORATORY | | | | + + + + + | [facility] | [address] | [place] | | | [facility] | | [phone], [facility] | | | - LABORATORY | | | | + + + + + Protime INR (07/05/2013 8:58 PM PDT) + + + + + + | Component | Value | Ref Range | Performed | Pathologist | | | | | At | Signature | + + + + + + | Prothrombin | 31.6 (H) | 11.3 - 13.9 | [facility] | | | Time | | seconds | [facility] | | | | | | MEDICAL | | | | | | CENTER - | | | | | | LABORATORY | | + + + + + + | INR | 3.28 (H) | 0.90 - 1.10 | [facility] | | | | | [...] + | [facility] | [address] | [place] | [phone] | | [facility] | | [address] | | | - LABORATORY | | | | + + + + + | [facility] | [address] | [place] | | | [facility] | | [id number] | | | - LABORATORY | | | | + + + + + CBC w/ Auto Differential (07/05/2013 8:58 PM PDT) + + + + + + | Component | Value | Ref Range | Performed | Pathologist | | | | | At | Signature | + + + + + + | White Blood | 8.0 | 4.0 - 11.0 K/uL | [facility] | | | Cells | | | [facility] | | | | | | MEDICAL | | | | | | CENTER - | | | | | | LABORATORY | | + + + + + + | Red Blood | 4.44 | 4.30 - 5.70 | [facility] | | | Cells | | M/uL | [facility] | | | | | | MEDICAL | | | | | | CENTER - | | | | | | LABORATORY | | + + + + + + | Hemoglobin | 12.7 (L) | 13.5 - 18.0 | [facility] | | | | | g/dL | [facility] | | | | | | MEDICAL | | | | | | CENTER - | | | | | | LABORATORY | | + + + + + + | Hematocrit | 38.9 (L) | 40.0 - 51.0 % | [facility] | | | | | | [facility] | | | | | | MEDICAL | | | | | | CENTER - | | | | | | LABORATORY | | + + + + + + | MCV | 87.7 | 83.0 - 101.0 fL | [facility] | | | | | | [facility] | | | | | | MEDICAL | | | | | | CENTER - | | | | | | LABORATORY | | + + + + + + | MCH | 28.7 | 28.0 - 35.0 pg | [facility] | | | | | | [facility] | | | | | | MEDICAL | | | | | | CENTER - | | | | | | LABORATORY | | + + + + + + | MCHC | 32.7 | 32.0 - 36.0 | [facility] | | | | | g/dL | [facility] | | | | | | MEDICAL | | | | | | CENTER - | | | | | | LABORATORY | | + + + + + + | RDW-CV | 13.4 | <15.0 % | [facility] | | | | | | [facility] | | | | | | MEDICAL | | | | | | CENTER - | | | | | | LABORATORY | | + + + + + + | Platelet | 196 | 140 - 440 K/uL | [facility] | | | Count | | | [facility] | | | | | | MEDICAL | | | | | | CENTER - | | | | | | LABORATORY | | + + + + + + | MPV | 7.9 | fL | [facility] | | | | | | [facility] | | | | | | MEDICAL | | | | | | CENTER - | | | | | | LABORATORY | | + + + + + + | % | 88.8 (H) | 45.0 - 82.0 % | [facility] | | | Neutrophils | | | [facility] | | | | | | MEDICAL | | | | | | CENTER - | | | | | | LABORATORY | | + + + + + + | % | 6.6 (L) | 20.0 - 45.0 % | [facility] | | | Lymphocytes | | | [facility] | | | | | | MEDICAL | | | | | | CENTER - | | | | | | LABORATORY | | + + + + + + | % Monocytes | 1.5 (L) | 4.0 - 12.0 % | [facility] | | | | | | [facility] | | | | | | MEDICAL | | | | | | CENTER - | | | | | | LABORATORY | | + + + + + + | % | 2.7 | 0.0 - 5.0 % | [facility] | | | Eosinophils | | | [facility] | | | | | | MEDICAL | | | | | | CENTER - | | | | | | LABORATORY | | + + + + + + | % Basophils | 0.4 | 0.0 - 1.0 % | [facility] | | | | | | [facility] | | | | | | MEDICAL | | | | | | CENTER - | | | | | | LABORATORY | | + + + + + + | Absolute | 7.10 | 1.80 - 8.50 | [facility] | | | Neutrophils | | K/uL | [facility] | | | | | | MEDICAL | | | | | | CENTER - | | | | | | LABORATORY | | + + + + + + | Absolute | 0.50 (L) | 0.60 - 3.20 | [facility] | | | Lymphocytes | | K/uL | [facility] | | | | | | MEDICAL | | | | | | CENTER - | | | | | | LABORATORY | | + + + + + + | Absolute | 0.10 | 0.00 - 1.00 | [facility] | | | Monocytes | | K/uL | [facility] | | | | | | MEDICAL | | | | | | CENTER - | | | | | | LABORATORY | | + + + + + + | Absolute | 0.20 | 0.00 - 0.40 | [facility] | | | Eosinophils | | K/uL | [facility] | | | | | | MEDICAL | | | | | | CENTER - | | | | | | LABORATORY | | + + + + + + | Absolute | 0.00 | 0.00 - 0.10 | [facility] | | | Basophils | | K/uL | [facility] | [...] | + + + + + | [facility] | [address] | [place], [place] | [phone] | | [facility] | | [address] | | | - LABORATORY | | | | + + + + + | [facility] | [address] | [place], [place] | | | [facility] | | [id number] | | | - LABORATORY | | | | + + + + + documented in this encounter Visit Diagnoses + + | Diagnosis | + + | Septic shock (HCC) - Primary | + + | Hematuria, gross Gross hematuria | + + | Warfarin-induced coagulopathy, initial encounter | + + | Fever Fever, unspecified | + + | Urinary tract infection Urinary tract infection, site not specified | + + | Quadriplegia following spinal cord injury | + + | Coumadin toxicity, initial encounter | + + | Altered mental status | + + | Acute renal failure (ARF) (HCC) Acute kidney failure, unspecified | + + | Obstructive uropathy Urinary obstruction, unspecified | + + | UTI (lower urinary tract infection) Urinary tract infection, site not specified | + + documented in this encounter Administered Medications + +--------+ + +------+------+ | Medication Order | MAR | Action | Dose | Rate | Site | | | Action | Date | | | | + +--------+ + +------+------+ | acetaminophen (TYLENOL) tablet | Given | 07/06/19 | 1,000 mg | | | | 1,000 mg 1,000 mg, Oral, ONCE, | | 14 9:04 | | | | | 07/05/13 at 2115, For 1 dose | | PM PDT | | | | + +--------+ + +------+------+ +---+---+ | | | +---+---+ + +-------+ +--------+---+---+ | acetaminophen (TYLENOL) tablet | Given | 07/09/19 | 650 mg | | | | 650 mg 650 mg, Oral, EVERY 6 | | 14 9:03 | | | | | HOURS PRN, Pain, Fever, | | PM PDT | | | | | Headaches, or fever >= 38.3 C | | | | | | | (101.5 F), Starting 07/06/13 | | | | | | | at 0119 | | | | | | + +-------+ +--------+---+---+ +-------+ +--------+---+---+ | Given | 07/08/19 | 650 mg | | | | | 14 10:21 | | | | | | PM PDT | | | | +-------+ +--------+---+---+ | Given | 07/08/19 | 650 mg | | | | | 14 10:32 | | | | | | AM PDT | | | | +-------+ +--------+---+---+ +---+---+ | | | +---+---+ + +-------+ +---------+---+---+ | albuterol (VENTOLIN HFA) 90 | Given | 07/10/19 | 2 puffs | | | | mcg/puff inhaler 2 puff 2 puff, | | 14 3:38 | | | | | Inhalation, EVERY 4 HOURS PRN, | | AM PDT | | | | | Wheezing, Shortness of Breath, | | | | | | | Starting 07/06/13 at 0119, | | | | | | | Shake well. Use with spacer., | | | | | | + +-------+ +---------+---+---+ +-------+ +---------+---+---+ | Given | 07/08/19 | 2 puffs | | | | | 14 1:39 | | | | | | PM PDT | | | | +-------+ +---------+---+---+ +---+---+ | | | +---+---+ + +-------+ +-------+---+---+ | baclofen (LIORESAL) tablet 10 | Given | 07/10/19 | 10 mg | | | | mg 10 mg, Oral, 3 TIMES DAILY, | | 14 1:33 | | | | | First dose on 07/08/13 at 0900 | | PM PDT | | | | + +-------+ +-------+---+---+ +-------+ +-------+---+---+ | Given | 07/10/19 | 10 mg | | | | | 14 9:01 | | | | | | AM PDT | | | | +-------+ +-------+---+---+ | Given | 07/09/19 | 10 mg | | | | | 14 9:03 | | | | | | PM PDT | | | | +-------+ +-------+---+---+ +---+---+ | | | +---+---+ + +---------+ +-----+-------+---+ | cefTRIAXone (ROCEPHIN) 2 g in | New Bag | 07/10/19 | 2 g | 100 | | | sodium chloride 0.9% 50 mL IVPB | | 14 1:38 | | mL/hr | | | 2 g, Intravenous, Administer over | | PM PDT | | | | | 30 Minutes, EVERY 24 HOURS | | | | | | | (Daily), First dose on Mon | | | | | | | 07/09/13 at 1330, Activate system | | | | | | | and mix before use., | | | | | | + +---------+ +-----+-------+---+ +---+---+ | | | +---+---+ + +---------+ +---+-------+---+ | dextrose 5% and sodium chloride | New Bag | 07/09/19 | | 125 | | | 0.45% with KCl 20 mEq/L (D5 1/2 | | 14 7:01 | | mL/hr | | | NS + KCL 20) infusion at 125 | | PM PDT | | | | | mL/hr, Intravenous, CONTINUOUS, | | | | | | | Starting 07/06/13 at 0845 | | | | | | + +---------+ +---+-------+---+ + + +---+-------+---+ | Rate/Dose Verify | 07/09/19 | | 125 | | | | 14 1:59 | | mL/hr | | | | PM PDT | | | | + + +---+-------+---+ | New Bag | 07/09/19 | | 125 | | | | 14 10:38 | | mL/hr | | | | AM PDT | | | | + + +---+-------+---+ +---+---+ | | | +---+---+ + +---------+ +--------+ +---+ | dextrose 5% and sodium chloride | New Bag | 07/10/19 | 1,000 | 50 mL/hr | | | 0.45% with KCl 20 mEq/L (D5 1/2 | | 14 4:14 | mLs | | | | NS + KCL 20) infusion at 50 | | AM PDT | | | | | mL/hr, Intravenous, CONTINUOUS, | | | | | | | Starting 07/08/13 at 2215 | | | | | | + +---------+ +--------+ +---+ + + +---+ +---+ | Restarted | 07/09/19 | | 50 mL/hr | | | | 14 10:15 | | | | | | PM PDT | | | | + + +---+ +---+ +---+---+ | | | +---+---+ + +---------+ +--------+-------+---+ | dextrose 5% and sodium chloride | New Bag | 07/07/19 | 1,000 | 1000 | | | 0.9% (D5 NS) 1,000 mL bolus | | 14 1:03 | mLs | mL/hr | | | 1,000 mL, Intravenous, Administer | | AM PDT | | | | | over 1 Hours, ONCE, 07/06/13 | | | | | | | at 0015, For 1 dose | | | | | | + +---------+ +--------+-------+---+ +---+---+ | | | +---+---+ + +---------+ +--------+-------+---+ | dextrose 5% and sodium chloride | New Bag | 07/07/19 | 1,000 | 1000 | | | 0.9% (D5 NS) 1,000 mL bolus | | 14 2:06 | mLs | mL/hr | | | 1,000 mL, Intravenous, Administer | | AM PDT | | | | | over 1 Hours, ONCE, 07/06/13 | | | | | | | at 0130, For 1 dose | | | | | | + +---------+ +--------+-------+---+ +---+---+ | | | +---+---+ + +---------+ +---+-------+---+ | dextrose 5% and sodium chloride | New Bag | 07/07/19 | | 250 | | | 0.9% (D5 NS) infusion at 250 | | 14 7:03 | | mL/hr | | | mL/hr, Intravenous, CONTINUOUS, | | AM PDT | | | | | Starting 07/06/13 at 0145, D5 | | | | | | | NS 250ml/hr x 1 liter, Then | | | | | | | 150ml/hr., | | | | | | + +---------+ +---+-------+---+ +---------+ +---+-------+---+ | New Bag | 07/07/19 | | 250 | | | | 14 3:09 | | mL/hr | | | | AM PDT | | | | +---------+ +---+-------+---+ +---+---+ | | | +---+---+ + +-------+ +--------+---+---+ | docusate sodium (COLACE) | Given | 07/10/19 | 100 mg | | | | capsule 100 mg 100 mg, Oral, | | 14 9:01 | | | | | DAILY, First dose on Mon07/09/13 | | AM PDT | | | | | at 0900, Swallow capsule whole., | | | | | | + +-------+ +--------+---+---+ +---+---+ | | | +---+---+ + +-------+ +-------+---+ + | enoxaparin (LOVENOX) 40 mg/0.4 | Given | 07/09/19 | 40 mg | | Abdomen- | | mL injection 40 mg 40 mg, | | 14 9:24 | | | RUQ | | Subcutaneous, EVERY 24 HOURS | | AM PDT | | | | | (Daily), First dose on Mon | | | | | | | 07/08/13 at 0930 | | | | | | + +-------+ +-------+---+ + +---+---+ | | | +---+---+ + +-------+ +-------+---+ + | enoxaparin (LOVENOX) 40 mg/0.4 | Given | 07/10/19 | 40 mg | | Abdomen- | | mL injection 40 mg 40 mg, | | 14 9:01 | | | RLQ | | Subcutaneous, EVERY 24 HOURS | | AM PDT | | | | | (Daily), First dose (after last | | | | | | | modification) on 07/09/13 at | | | | | | | 0900, Discontinue when INR | | | | | | | therapeutic!!, | | | | | | + +-------+ +-------+---+ + +---+---+ | | | +---+---+ + +-------+ +--------+---+---+ | gabapentin (NEURONTIN) capsule | Given | 07/10/19 | 100 mg | | | | 100 mg 100 mg, Oral, 3 TIMES | | 14 1:33 | | | | | DAILY, First dose on 07/06/13 | | PM PDT | | | | | at 0900 | | | | | | + +-------+ +--------+---+---+ +-------+ +--------+---+---+ | Given | 07/10/19 | 100 mg | | | | | 14 9:01 | | | | | | AM PDT | | | | +-------+ +--------+---+---+ | Given | 07/09/19 | 100 mg | | | | | 14 9:03 | | | | | | PM PDT | | | | +-------+ +--------+---+---+ +---+---+ | | | +---+---+ + +---------+ +--------+-------+---+ | levofloxacin in dextrose | New Bag | 07/06/19 | 750 mg | 100 | | | (LEVAQUIN) IVPB 750 mg 750 mg, | | 14 10:53 | | mL/hr | | | Intravenous, Administer over 90 | | PM PDT | | | | | Minutes, ONCE, 07/05/13 at | | | | | | | 2230, For 1 dose | | | | | | + +---------+ +--------+-------+---+ +---+---+ | | | +---+---+ + +-------+ +-------+---+---+ | midodrine (PROAMATINE) tablet | Given | 07/10/19 | 10 mg | | | | 10 mg 10 mg, Oral, 3 TIMES | | 14 1:33 | | | | | DAILY, First dose on 07/06/13 | | PM PDT | | | | | at 0900 | | | | | | + +-------+ +-------+---+---+ +-------+ +-------+---+---+ | Given | 07/10/19 | 10 mg | | | | | 14 9:01 | | | | | | AM PDT | | | | +-------+ +-------+---+---+ | Given | 07/09/19 | 10 mg | | | | | 14 9:03 | | | | | | PM PDT | | | | +-------+ +-------+---+---+ +---+---+ | | | +---+---+ + + + +---------+-------+---+ | norepinephrine in NS (LEVOPHED) | Rate/Dos | 07/07/19 | 2 | 7.5 | | | 16 mcg/mL infusion 1-30 mcg/min | e Change | 14 3:30 | mcg/min | mL/hr | | | (rounded to 3.8-112.5 mL/hr), at | | PM PDT | | | | | 3.8-112.5 mL/hr, Intravenous, | | | | | | | TITRATED, Starting 07/06/13 at | | | | | | | 0130, Start infusion if: | | | | | | | SBP<100, Initial dose: 2mcg/min, | | | | | | | Titrate to achieve SBP >: 100 | | | | | | + + + +---------+-------+---+ + + +---------+ +---+ | New Bag | 07/07/19 | 4 | 15 mL/hr | | | | 14 2:49 | mcg/min | | | | | PM PDT | | | | + + +---------+ +---+ | Rate/Dose Change | 07/07/19 | 2 | 7.5 | | | | 14 11:00 | mcg/min | mL/hr | | | | AM PDT | | | | + + +---------+ +---+ +---+---+ | | | +---+---+ + +-------+ +------+---+---+ | ondansetron (ZOFRAN) injection | Given | 07/08/19 | 8 mg | | | | 4-8 mg 4-8 mg, Intravenous, | | 14 7:55 | | | | | EVERY 6 HOURS PRN, Nausea, | | AM PDT | | | | | Vomiting, Starting 07/06/13 at | | | | | | | 0119, First line agent, | | | | | | + +-------+ +------+---+---+ +---+---+ | | | +---+---+ + +-------+ +-------+---+---+ | pantoprazole (PROTONIX) DR | Given | 07/10/19 | 40 mg | | | | tablet 40 mg 40 mg, Oral, DAILY | | 14 6:41 | | | | | BEFORE BREAKFAST, First dose on | | AM PDT | | | | | 07/09/13 at 0730, Do not cut | | | | | | | or crush., | | | | | | + +-------+ +-------+---+---+ +---+---+ | | | +---+---+ + +-------+ +-------+---+ + | phytonadione (VITAMIN K) 10 | Given | 07/06/19 | 10 mg | | Leg-Righ | | mg/mL injection 10 mg 10 mg, | | 14 10:59 | | | t Upper | | Intramuscular, ONCE, 07/05/13 | | PM PDT | | | | | at 2230, For 1 dose | | | | | | + +-------+ +-------+---+ + +---+---+ | | | +---+---+ + +---------+ +---------+-------+---+ | piperacillin-tazobactam (ZOSYN) | New Bag | 07/10/19 | 3.375 g | 200 | | | 3.375 g in sodium chloride 0.9% | | 14 12:34 | | mL/hr | | | 100 mL IVPB 3.375 g, | | PM PDT | | | | | Intravenous, Administer over 30 | | | | | | | Minutes, EVERY 6 HOURS (4 times | | | | | | | per day), First dose on Sat | | | | | | | 07/06/13 at 0645, Activate system | | | | | | | and mix before use., | | | | | | + +---------+ +---------+-------+---+ +---------+ +---------+-------+---+ | New Bag | 07/10/19 | 3.375 g | 200 | | | | 14 6:41 | | mL/hr | | | | AM PDT | | | | +---------+ +---------+-------+---+ | New Bag | 07/09/19 | 3.375 g | 200 | | | | 14 11:32 | | mL/hr | | | | PM PDT | | | | +---------+ +---------+-------+---+ +---+---+ | | | +---+---+ + +-------+ +--------+---+---+ | potassium chloride 20 mEq/15 mL | Given | 07/07/19 | 20 mEq | | | | liquid 20 mEq 20 mEq, Oral, | | 14 10:14 | | | | | ONCE, 07/06/13 at 0700, For 1 | | AM PDT | | | | | dose, Please give now., | | | | | | + +-------+ +--------+---+---+ +---+---+ | | | +---+---+ + +---------+ +---+-------+---+ | sodium chloride 0.45% (1/2 NS) | New Bag | 07/07/19 | | 200 | | | infusion at 200 mL/hr, | | 14 6:49 | | mL/hr | | | Intravenous, CONTINUOUS, Starting | | AM PDT | | | | | 07/06/13 at 0715 | | | | | | + +---------+ +---+-------+---+ +---+---+ | | | +---+---+ + +---------+ +--------+-------+---+ | sodium chloride 0.9% bolus | New Bag | 07/06/19 | 1,000 | 1000 | | | 1,000 mL 1,000 mL, Intravenous, | | 14 10:53 | mLs | mL/hr | | | Administer over 1 Hours, ONCE, | | PM PDT | | | | | 07/05/13 at 2230, For 1 dose | | | | | | + +---------+ +--------+-------+---+ +---+---+ | | | +---+---+ + +-------+ +------+---+---+ | warfarin (COUMADIN) tablet 5 mg | Given | 07/08/19 | 5 mg | | | | 5 mg, Oral, Daily - Warfarin, | | 14 5:50 | | | | | First dose on 07/07/13 at | | PM PDT | | | | | 1800, Drug education required., | | | | | | + +-------+ +------+---+---+ +---+---+ | | | +---+---+ + +-------+ +--------+---+---+ | warfarin (COUMADIN) tablet 7.5 | Given | 07/09/19 | 7.5 mg | | | | mg 7.5 mg, Oral, Daily - | | 14 7:00 | | | | | Warfarin, First dose (after last | | PM PDT | | | | | modification) on 07/08/13 at | | | | | | | 1800, Drug education required., | | | | | | + +-------+ +--------+---+---+ +---+---+ | | | +---+---+ documented in this encounter
--- OUTSIDE RECORDS SUMMARY | ~2019-11-15 | XMS | Encounter Summary ---
Demographics + + + | Address | [address] | | | [place] [address] | + + + | Home Phone | | + + + | Preferred Language | Unknown | + + + | Marital Status | Single | + + + | Islam Affiliation | 1074 | + + + | Race | or | + + + | Ethnic Group | Not or | + + + Author + + + | Author | [facility] | | | and [place] | + + + | Organization | [facility] | | | [...] Team Providers + +------+ + | Care Hadoop Architect Name | Role | Phone | + [...] + + | 10/18/ | Telephone | [facility] | Diomedes Zarate, | Other | | 2016 | | [facility] [address] | [address] | | | | | [address] | [place], | | | | | [place] | [place] [address] | | | | | [id number] | [phone] | | | | | [phone] | | | +--------+ + + + [...] this encounter Miscellaneous Notes Telephone Encounter - HuddlestonAmelia Frantz - 11/04/2016 11:52 AM PDTYellowhawk called again laurita salazar notes from visit 09/15/16. Still not available in Epic to route. Please advise.Electroni blair signed by Amelia Huddleston at 11/04/2016 11:52 AM PDTTelephone Encounter - Sydnee Bird RN - 10/26/2016 4:17 PM PDTPatient message printed on Dr Zarate's desk for review. El ectronically signed by Tran Bird RN at 10/26/2016 4:17 PM PDTTelephone Encounter - Flaquito Amelia Landry - 10/26/2016 3:43 PM PDTReceived a call from Awilda at [facility]. She state s that they have still not received notes from patient's visit with Dr. Zarate on 09/15/16. Notes are not yet complete in Epic to route. Awilda would like a call back to discuss this a nd other questions that Martinez has about his plan of care. Awilda can be reached directly at [phone]. elephone Ekta jenkins - Stephanie Cadena - 10/18/2016 9:29 AM PDTPatient scheduled for [...] [place] | | | | | | [id number] | | | | | | | | +--------+ + + + + documented as of this encounter Visit Diagnoses Not on filedocumented in this encounter"
--- OUTSIDE RECORDS SUMMARY | ~2019-11-15 | XMS | Encounter Summary ---
Demographics + + + | Address | [address] | | | [place] [address] | + + + | Home Phone | | + + + | Preferred Language | Unknown | + + + | Marital Status | Single | + + + | Presybeterian Affiliation | 1074 | + + + [...] Team Providers + +------+ + | Care Webfed Offset Press Operator Name | Role | Phone | [...] Rehabilitatio | quadriplegia | [address] | | | | n | at C[address] | [address] | [place], | | | | | level (HCC) | [place], | [place] [address] | | | | | Impaired | [place] [address] | Phone: | | | | | mobility and | Phone: | [phone] | | | | | ADLs | [phone] | Fax: | | | | | Procedures | Fax: | [phone] | | | | | pt eval | [phone] | | +--------+ + + + + + Encounter Details +--------+---------+ + + + | Date | Type | Department | Care Team | Description | +--------+---------+ + + + | 06/15/ | Office | [facility] | Chris Priest, | Impaired mobility | | 2016 | Visit | MED CTR THERAPY PT | MD [address] | and activities of | | | | OP [address] | [place] | daily living | | | | [place], [place] | [address] | (Primary Dx); | | | | [address] | | Impaired functional | | | | [phone] | Della Ravi, PT | mobility, balance, | | | | | [address] | gait, and endurance; | | | | | [place], [place] | Quadriplegia, | | | | | [address] | C5-C7, incomplete | | | | | | ([facility]); Posture | | | | | Martin Ravi, | imbalance; Neck | | | | | 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 Goal 1 Status: progressing. Treatment Plan/Interventions: 17493 - PT Evaluation 17629 - Therapeutic Exercise 45718 - Neuromuscular Reeducation 58983 - PT Re-Evaluation 49898 - Gait Training 38876 - Therapeutic Activities 05868 - Manual Therapy 52398 - Self Care/Home Management 08199 - Electrical Stimulation, Attended Requested # of [...] might be different from t adán original. [facility] CTR THERAPY PT OP [address] [place] [address] Physical Therapy Progress Assessment Re-Certification Date: 06/16/2015 [...] Rehab Precautions Office Visit from 02/23/2015 in [facility] CTR THERAPY PT OP Rehab Precautions Precautions Spinal, Cervical Rehab Learning Style Office Visit from 02/23/2015 in [facility] CTR THERAPY PT OP Learning Style Patient's [...] and they are waiting to hear from [facility]. Patient reports improvements with increased UE/hands and trunk strength/ROM and increased sensation and now feels some into thighs. However continues to report high pain levels in neck/BARRERA and right shoulder/upper back and weakness in LE's/trunk. Pt continues to require assistance wit h transfers/mobility and uses an electric tilt-in space WC for mobility in the house and [facility]. OBJECTIVE: Mobility: Bed Mobility Additional Documentation: supine to/from sit Assistive Device: bed rails Supine to Sit, Level of Mingo: moderate assist (50% patient effort) Sit to Supine, Level of Mingo: moderate assist (50% patient effort) Safety Issues: decreased use of arms for pushing/pulling, decreased use of legs for bridgin g/pushing, impaired trunk control for bed mobility Impairments: sensation decreased, strength decreased, impaired balance, coordination impair ed, motor control impaired, postural control impaired, sensory feedback impaired, pain Transfers Additional Documentation: bed to/from chair Bed-Chair, Level of [place]ingo: minimum assist (75% patient effort) (assist with LE's to guide knees: bed is higher than WC) Chair-Bed, Level of Mingo: moderate assist (50% patient effort) Efe-Bobxe-Ypj, Assistive Device: sliding board (SB used only [...] (C8): 1 to 2-/5 2-/5 2- 2- Stock Manager: Poor: able to close partially without using tenodesis Poor: able to close partially w ithout using tenodesis poor poor Clonus: positive positive Outcome Measure: Initial Assessment Progress Note / Discharge Spinal Cord Mingo Measure Special Tests: Neuro Fabiola Assessments Modified [...] 1: Independent with home exercise program for manager terminal health and 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 Goal 1 Status: progressing. Plan Date of Onset: 02/08/2014 Start of Care Date: 02/23/2015 Requested # of Visits: 24 visits 2x/week for 12 weeks Certification From: 06/16/2015 Certification To: 09/09/2015 Treatment Plan/Interventions 18467 - PT [id number] - Therapeutic [id number] - Neuromuscular [id number] - P T Re-Dkhcltxcwh24495 - Gait Ekvrlppl68254 - Therapeutic Rkjhjtkmmm01283 - Manual Somavdt6236 5 - Self Care/Home Vuzivvdgxa59030 - Electrical Stimulation, Attended Patient and/or family [...] [place] | | | | | | [address] | | | | | | | [...]
--- OUTSIDE RECORDS SUMMARY | ~2019-11-15 | XMS | Encounter Summary ---
Demographics + + + | Address | [address] | | | [place] [address] | + + + | Home Phone [...] Author + + + | Author | [facility] | | | and [place] | + + + | Organization | [facility] | | | [...] Team Providers + +------+ + | Care Enrollment Coordinator Name | Role | Phone | [...] Rehabilitatio | quadriplegia | [address] | [place] | | | | n | at [address] | [address] | [place], | | | | | level (HCC) | [place], | [place] [address] | | | | | Impaired | [place] [address] | Phone: | | | | | mobility and | Phone: | [phone] | | | | | ADLs | [phone] | Fax: | | | | | Procedures | Fax: | [phone] | | | | | pt eval | [phone] | | +--------+ + + + + + Encounter Details +--------+---------+ + + + | Date | Type | Department | Care Team | Description | +--------+---------+ + + + | 04/08/ | Office | [facility] | Chris Priest, | Impaired mobility | | 2016 | Visit | MED CTR THERAPY PT | MD [address] | and activities of | | | | OP [address] | [place], [place] | daily living | | | | [place], [place] | [address] | (Primary Dx); | | | | [address] | | Impaired functional | | | | [phone] | Della Ravi, PT | mobility, balance, | | | | | [address] | gait, and endurance; | | | | | [place], [place] | Quadriplegia, | | | | | [address] | C5-C7, incomplete | | | | | | ([facility]); Posture | | | | | Igor [place], | imbalance; Neck | | | | [...] encounter Progress Notes Della Ren, PT - 04/08/2015 3:54 PM PSTFormatting of this note might be different from t he original. [facility] CTR THERAPY PT OP [address] [place] [address] Physical Therapy Daily Treatment Note Date: 04/08/2015 Patient Information Patient Name: Martinez Abbasi II [...] Rehab Precautions Office Visit from 02/23/2015 in [facility] CTR THERAPY PT OP Rehab Precautions Precautions Spinal, Cervical Rehab Learning Style Office Visit from 02/23/2015 in [facility] CTR THERAPY PT OP Learning Style Patient's [employer] Learning Style listening, reading, observation, performance of task Start Time: 1550 Stop time: 1635 Duration: 45 minutes Timed Treatment Codes: 45 minutes # of PT Visits to Date: 4 Subjective: pt arrived with girlfriend Jael. Pt reports that he is having 4/10 right shoul tamela/neck pain. Pain Assessment: Pain Rating Pre Assessment: 3 Location: right shoulder/neck Objective: Exercise/Activity 03/24/15 04/08/15 Seated vitals 146/76 HR: 64 169/113 HR:70 Standing BP Initial: 132/74 Initial: 135/112 HR: 93 5 min: BP 120/74 3 min: 134/92 HR:87 Standing frame: total stand time 10 minutes Total stand time 12 min. Caregiver training/education x Assessment: pt reported that this session he was more comfortable is the frame and did not feel any discomfort in right ankle this session. Pt with improved upright posture but contin ues to have mild right lateral hip shift; able to correct with manual assistance. Pt tolerat ed standing for approx. 12 min.; reported some fatigue and increased sense of pressure in hi s low back after standing. Pt would benefit from cont. Use of standing frame to safely progr ess to home program Plan: Cont. With trunk/core strengthening, neck/shoulder pain, transfers, cont to progress standing frame use/caregiver training, Electronically signed by: Della Ren PT, 04/08/2015 17:54 Patient Name: Martinez Abbasi II/: 1970/ documented [...] [place] | | | | | | [address] | | | | | | | [...] region | + + documented in this encounter"
--- OUTSIDE RECORDS SUMMARY | ~2019-11-15 | XMS | Encounter Summary ---
Demographics + + + | Address | [address] | | | [place] [address] | + + + | Home Phone [...] + | Organization | [facility] | | [...] Team Providers + +------+ + | Care Kai Whakaruruhau Name | Role | Phone | + +------+ + | Edwar Wilhelm PA-C | PCP | | + +------+ + Reason for Visit +--------+--------+ + | Reason | Onset | Comments | | | Date | | +--------+--------+ + | Other | 06/12/ | | | | 2014 | | +--------+--------+ + Encounter Details +--------+ + + + + | Date | Type | Department | Care Team | Description | +--------+ + + + + | 06/12/ | Telephone | [facility] | Chris Priest, | Other | | 2014 | | PHYSIATRY [address] | | | | | [address] | [place] | | | | | [place] | [address] | | | | | [address] | | | | | | [phone] | | | +--------+ + + + [...] Telephone Encounter - Lauren Troy RN - 06/12/2014 4:29 PM PDTPatient states he is steven ving "rubber band" cramps to his upper abdomen. Patient states the cramps are causing diffic ulty breathing. Patient advised to be seen in urgent care or the ED right away. Patient advi sed that thgis an isue that should be dealt with KAREN not later in the clinic. Patient advis ed to call and report findings and schedule a sooner follow up. elephone Encounter - Abby Guerra - 5 3:17 PM PDTPatient called with questions for the nurse documented in this encounter Plan of Treatment [...] [place] | | | | | | [address] | | | | | | | | +--------+ + + + + documented as of this encounter Visit Diagnoses Not on filedocumented in this encounter
--- OUTSIDE RECORDS SUMMARY | ~2019-11-15 | XMS | Encounter Summary ---
Demographics + + + | Address | [address] | | | [place] [address] | + + + | Home Phone [...] Author + + + | Author | [facility] | | | and [place] | + + + | Organization | [facility] | | | [...] Team Providers + +------+ + | Care Stevedoring Supervisor Name | Role | Phone | [...] | +--------+ + + + + | 10/15/ | Home Care | [facility] | Kayla Dior, | SN REPEAT VISIT | | 2019 | Visit | [place] [address] | RN | | | | | [place] | | | | | | [address] | | | | | | [phone] | | | +--------+ + + + [...] + + + | Blood Pressure | 118/78 | 10/16/2019 11:53 AM | | | | | PDT | | + + + + + | Pulse | 80 | 10/16/2019 11:53 AM | | | | | PDT | | + + + + + | Temperature | 36.7 C (98.1 F) | 10/16/2019 11:53 AM | | | | | PDT | | + + + + + | Respiratory Rate | 16 | 10/16/2019 11:53 AM | | | | | PDT | | + + + + + | Oxygen Saturation | 97% | 10/16/2019 11:53 AM | | | | | [...] Home Health - Kayla Dior RN - 10/16/2019 11:32 AM PDT1) Are you or anyone you [...] any question 1-6 is yes. Consult with clinical services manager prior to visit. S. Pt has a stage 3 pressure ulcer to L buttocks B Pt has history of quadriplegia due to spinal cord lesion A Assessment was provided today. Pt had been to ER for muscle spasms. Nothing was deter mined at that time, but his PCP put him on abx for possible UTI in case. His urine today is concentrated so instructed to increase fluid intake. He is instructed on his medications a nd how and when to take to best cover his muscle spasms. His mother and sister are his CG. Wound care was provided and measurments taken. There is a spot in middle of wound that is black this slough. It is moist. RN to request debridemnt ointment. Pt plans to go to [facility] or catheter change next week and then RN to provide after that. R Continue POC, [facility] umented in this encounter Plan of Treatment +--------+ [...] | | | | | [place] | | | | | | [address] | | | | | | | | +--------+ + + + + documented as of this encounter Visit Diagnoses Not on filedocumented in this encounter Home Health Visit - Care Plan + + | Visit Type - SN - REPEAT VISIT | | Discipline - Usp | + + + + +--------+--------+-------+ + | Problem | Description | Start | Status | Goals | Interventio | | | | Date | | | ns | + + +--------+--------+-------+ + | HH Other Wound | Upper right back | | | - | 1 problem | | Disciplines: | scab healed over | | Active | | | | Usp | Left buttock hx of | 020 [...] 020 | | | interventio | | Usp | | | | | n | [...] | | Active | | | | Usp | | 020 | | | interventio [...] | | | | n | | Usp | | | | | scheduled/d | | | | | | | ocumented | | | | | | | in this | | | | | | | visit | + + +--------+--------+-------+ + | Wound Management | Right buttock | | | - | 1 problem | | Disciplines: | | | Active | | | | Usp | | 020 | | | interventio [...] +--------+--------+ + | Pain management | Problem: SHARED | | | | | Description: [...] Management | Comple | | | | pressure injury | | caren | | | | right buttock: | [...]
--- OUTSIDE RECORDS SUMMARY | ~2019-11-15 | XMS | Encounter Summary ---
Demographics + + + | Address | [address] | | | [place] [address] | + + + | Home Phone [...] Team Providers + +------+ + | Care Dock Or Pier Laborer Name | Role | Phone | + +------+ + | Edwar Wilhelm PA-C | PCP | | + +------+ + Encounter Details +--------+ + + + + | Date | Type | Department | Care Team | Description | +--------+ + + + + | 05/12/ | Documentati | [facility] | Della Ravi, | | | 2016 | on | MED CTR THERAPY PT | PT [address] | | | | | OP [address] | [place] | | | | | [place] | [address] | | | | | [address] | | | | | | [phone] | | | +--------+ + + + [...] encounter Progress Notes Della Ren, PT - 05/13/2015 4:59 PM [facility] [address] [place] [address] Cancellation Date: 05/13/2015 Patient Information Patient Name: Martinez Abbasi II Date of : 1970 Age: 44 y.o. Reason for missed visit: Pt called to cancel due to having a mirLakooaine Phone call placed: yes - no answer but left a message regarding cancellation/NS policy and standing frame. Plan: Cont with POC at next scheduled visit or DC. Electronically signed by: Della Ren PT, 05/13/2015 16:59 Patient Name: Martinez Abbasi II/: 1970/ documented [...] [place] | | | | | | [address] | | | | | | | | +--------+ + + + + documented as of this encounter Visit Diagnoses Not on filedocumented in this encounter"
--- OUTSIDE RECORDS SUMMARY | ~2019-11-15 | XMS | Encounter Summary ---
Demographics + + + | Address | [address] | | | [place] [address] | + + + | Home Phone | | + + + | Preferred Language | Unknown | + + + | Marital Status | Single | + + + | Temple Affiliation | 1074 | + + + | Race | or | + + + | Ethnic Group | Not or | + + + Author + + + | Author | [facility] | | | and [place] | + + + | Organization | [facility] | | | [...] Team Providers + +------+ + | Care Flare Man Name | Role | Phone | + +------+ + | Edwar Wilhelm PA-C | PCP | | + +------+ + Encounter Details +--------+ + + + + | Date | Type | Department | Care Team | Description | +--------+ + + + + | 09/24/ | Orders Only | [facility] | Provider, | | | 2018 | | SYSTEM GENERIC OP | [address] | | | | | [address] | [address]. | | | | | [address] [place], [place] | [place] [address] | | | | | [address] | | | | | | [phone] | | | +--------+ + + + [...] [place] | | | | | | [address] | | | | | | | | +--------+ + + + + documented as of this encounter Visit Diagnoses Not on filedocumented in this encounter"
--- OUTSIDE RECORDS SUMMARY | ~2019-11-15 | XMS | Encounter Summary ---
Demographics + + + | Address | [address] | | | [place] [address] | + + + | Home Phone [...] Team Providers + +------+ + | Care Genetic Coordinator Name | Role | Phone | [...] | | | | Gastroesoph[place] | | [place] [address] | | | | | geal reflux | | Phone: | | | | | disease | | [phone] | | | | | without | | Fax: | | | | | esophagitis | | [phone] | | | | | Abdominal | [...] | | | | | | | [place] | | | | | | | [...] + + + + | 12/19/ | Anesthesia | [facility] | Blane Tompkins | | | 2014 | Event | [facility] | MD [address]ulk[address] | | | | [address] | [address] [place] | | | | | [place] | [place] [address] | | | | | [address] | [phone] | | | | | [phone] | | | +--------+ + + + + Anesthesia Record + + + + + | Procedure Name | Responsible | Anesthesia Start | Anesthesia Stop Time | | | Anesthesiologist | Time | | + + + + + | EGD - PT IS | Blane Tompkins, | 12/19/14 1150 | 12/19/14 1209 | | PARAPLEGIC (N/A | MD | | | | Mouth) | | | | + + + + + +----+---+ + + | Da | T | Event | Comment | | te | i | | | | | m | | | | | e | | | +----+---+ + + | 10 | 1 | | | | /2 | 1 | | | | 3/ | 4 | | | | 20 | 4 | | | | 15 | | | | +----+---+ + + | | 1 | AN | Per surgeon request | | | 1 | Antibiotic | | | | 5 | declined | | | | 0 | | | +----+---+ + + | | 1 | An Start | Reassessment prior to anesthesia induction/procedure. | | | 1 | | | | | 5 | | | | | 0 | | | +----+---+ + + | | 1 | An Start | | | | 1 | Data | | | | 5 | | | | | 1 | | | +----+---+ + + | | 1 | An | | | | 1 | Induction | | | | 5 | | | | | 4 | | | +----+---+ + + | | 1 | an stop | | | | 2 | data | | | | 0 | | | | | 4 | | | +----+---+ + + | | 1 | An Stop | Patient handed off to recovery nurse. | | | 0 | | | | | 9 | | | +----+---+ + + +------+ | Meds | +------+ + +--------+ | Name | Total | + +--------+ | propofol | 150 mg | + +--------+ | LR (Infusion) | 200 mL | + +--------+ + + | Name | + + | O2 Flow Rate (L/Min) | + + + + | No blood administrations on file. | + + +--------+ + + + | Type | Details | Placement | Removal | +--------+ + + + | Wound | 07/06/13; 0130; other (see | 07/06/13 0130 by | 05/21/181642 by | | | comments) (posterior neck ); | Zehra Rangel RN | User Epic | | | (incision ); 05/21/18 | | | | | (Removed/Completed by utility); | | | | | 1643 (Removed/Completed by | | | | | utility) | | | +--------+ + + + | Wound | 08/29/13; 1548; penis; | 08/29/13 1548 by | 05/21/18 1643 by | | | excoriation; Instructed to inform | Babita Ochoa, | User Epic | | | neurocritical care physician and check twice | RN | | | | daily; 05/21/18 | | | | | (Removed/Completed by utility); | | | | | 1643 (Removed/Completed by | | | | | utility) | | | +--------+ + + + | Wound | 08/29/13; 1548; Right:; thigh; | 08/29/13 1548 by | 05/21/18 1643 by | | | blister(s); Secondary to catheter | Babita Ochoa, | User Epic | | | tape. Tape changed and moved to | RN | | | | other thigh; 05/21/18 | | | | | (Removed/Completed by utility); | | | | | 1643 (Removed/Completed by | | | | | utility) | | | +--------+ + + + | Urethr | 08/26/14; yes; indicated for | 10/22/13 0000 by | 04/08/15 1811 by | | al | acute urinary | Zehra Rangel RN | Vania Mohamud RN | | Cathet | retention/obstruction; indwelling | | | | er | double lumen catheter; 100% | | | | | silicone; 16; none; urethral | | | | | catheter removed; 04/08/15; 1811 | | | +--------+ + + + | Brace/ | 11/24/14; 1246; 05/21/18 | 11/24/14 1246 by | 05/21/18 1643 by | | Orthot | (Removed/Completed by utility); | Peg Painting RN | User Epic | | ic/Ort | 1643 (Removed/Completed by | | | | hosis | utility) | | | +--------+ + + + | [READ | 12/19/14; 1140; healing within | 12/19/14 1140 by | 12/19/14 1437 by | | ONLY] | expectations; 12/19/14; 1437 | Leyla Cohen RN | Alan Reis RN | | | | | | | Periph | | | | | eral | | | | | IV - | | | | | Single | | | | | Lumen | | | | | | | | | +--------+ + + + documented in this encounter Social History + +-------+ +--------+------+ | Tobacco [...] + + documented as of this encounter OR Notes Anesthesia Postprocedure Evaluation - Blane Tompkins MD - 12/19/2014 12:09 PM PDTFor matting of this note might be different from the original. ANESTHESIA POSTANESTHESIA EVALUATION [facility] 44 y.o. male 1970 [id number] Procedure(s) EGD - PT IS PARAPLEGIC (N/A Mouth) Filed Vitals: 12/19/14 1105 12/19/14 1151 BP: 127/75 110/66 Pulse: 59 82 Temp: 37 C (98.6 F) 36.7 C (98.1 F) Resp: 18 16 SpO2: 96% 92% Cooperates? Yes Mental Status Performs simple tasks. Respiratory Satisfactory - Airway patent (self maintained). Cardiovascular Satisfactory Blood pressure and heart rate acceptable Temperature Satisfactory Pain Satisfactory N/V Control Satisfactory Hydration Satisfactory No signs of dehydration Complications None apparent Electronically signed by Blane Tompkins MD 12/19/2014 12:09 [facility] nesthesia Prepr ocedure Evaluation - Blane Tompkins MD - 12/16/2014 11:17 AM PDTFormatting of this no te might be different from the original. ANESTHESIA PREANESTHESIA EVALUATION [facility] 44 y.[facility]. male 1970 [id number] Procedure(s): EGD - PT IS PARAPLEGIC (N/A Mouth) Medical history, anesthesia, medications, allergy, NPO status verified histories reviewed. ECG reviewed. Labs reviewed. Review of Systems / Med History Anesthesia History No anesthesia complications. Cardiovascular (+) hypertension.(-) CAD, past OH, CHF. Exercise tolerance <4 METS. Pulmonary Negative except where noted below. (-) smoking history. Neurology quadriplegia after spinal cord injury. Psychology (+) anxiety. Renal (+) renal/ureteral stones. Gastrointestinal/Hepatic Negative except where noted below. Endocrine Negative except where noted below. (+) obesity: BMI (30-39). Pediatric History Negative except where noted below. Obstetrics Negative except where noted below. Other Negative except where noted below. Cancer Negative except where noted below. Physical Exam Airway MP II, TM >3 FB, Mouth opening >2 FB. Neck: full ROM, extends >30 degrees. Dental Alley ssly normal except where noted below.; CV Rhythm regular. Rate normal. Pulm Clear to auscultation bilaterally. Neuro Grossly normal. Anesthesia Plan ASA 3 Type: TIVA. Induction: Intravenous. Potential problems: None anticipated. Monitors: Standard ASA monitors. Consent statement:Anesthetic plan, alternatives, risks and benefits discussed with patient. Risks discussed included (but were not limited to): dental injury, sore throat, respiratory events, perioperative CV events, . Consenting person understands and agrees to proceed. PARQ. Electronically Signed by: Blane Tompkins MD ESig date/time: 12/19/2014 11:48 documented in th is encounter Plan of Treatment +--------+ + + [...] [place] | | | | | | [id number] | | | | | | | | +--------+ + + + + documented as of this encounter Visit Diagnoses Not on filedocumented in this encounter Administered Medications + +---------+ +------+------+------+ | Medication Order | MAR | Action | Dose | Rate | Site | | | Action | Date | | | | + +---------+ +------+------+------+ | lactated ringers (LR) infusion | New Bag | 12/20/19 | | | | | Intravenous, CONTINUOUS PRN, | | 15 11:49 | | | | | Starting 12/19/14 at 1149, | | AM PDT | | | | | Anesthesia Intra-op | | | | | | + +---------+ +------+------+------+ +---+---+ | | | +---+---+ + +-------+ +-------+---+---+ | propofol (DIPRIVAN) injection | Given | 12/20/19 | 50 mg | | | | Intravenous, PRN, Starting Fri | | 15 12:03 | | | | | 12/19/14 at 1154, Anesthesia | | PM PDT | | | | | Intra-op | | | | | | + +-------+ +-------+---+---+ +-------+ +-------+---+---+ | Given | 12/20/19 | 50 mg | | | | | 15 11:59 | | | | | | AM PDT | | | | +-------+ +-------+---+---+ | Given | 12/20/19 | 50 mg | | | | | 15 11:54 | | | | | | AM PDT | | | | +-------+ +-------+---+---+ +---+---+ | | | +---+---+ documented in this encounter"
--- OUTSIDE RECORDS SUMMARY | ~2019-11-15 | XMS | Encounter Summary ---
Demographics + + + | Address | [address] | | | [place] [address] | + + + | Home Phone [...] + | Author | [facility] | | | and [place] | + + + | Organization | [facility] | | | and [...] Team Providers + +------+ + | Care Deputy Attorney General Name | Role | Phone | + [...] + + | 01/16/ | Telephone | [facility] | Chris Priest, | Other | | 2016 | | PHYSIATRY [address] | [address] | | | | | [address] | [place] | | | | | [place] | [address] | | | | | [address] | | | | | | [phone] | | | +--------+ + + + [...] [place] | | | | | | [id number] | | | | | | | | +--------+ + + + + documented as of this encounter Visit Diagnoses Not on filedocumented in this encounter"
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
--- OUTSIDE RECORDS SUMMARY | ~2019-11-15 | XMS | Encounter Summary ---
Demographics + + + | Address | [address] | | | [place] [address] | + + + | Home Phone [...] Author | [facility] | | | and [place] | + + + | Organization | [facility] | | | [...] Team Providers + +------+ + | Care Pallet Stone Positioner Name | Role | Phone | + [...] | | | | Gastroesopha | | [place] [address] | | | | | geal reflux | | Phone: | | | | | disease | | [phone] | | | | | without | | Fax: | | | | | esophagitis | | [phone] | | | | | Abdominal | [...] | | | | | | | PA | | | | | | | [...] + + | 12/19/ | Hospital | [facility] | Jonathan Avendaño MD | Dysphagia (Primary | | 2015 | Encounter | MED CTR [facility] INTRA OP | [address] | Dx); | | | | [address] | [place] | Gastroesophageal | | | | [place] | [address] | reflux disease | | | | [address] | [phone] | without esophagitis | | | | [phone] | | | +--------+ + + + [...] the physician who did your procedure at [phone] if you have any questions or experience any of the following: ? Increasing abdominal pain, nausea, or vomiting. ? Chills and fever over 101F. ? New abdominal swelling or bloating. ? Signs of rectal bleeding (black or red stool). If you cannot get a hold of your physician, then call the [facility] [phone] . If necessary, report to the Emergency Department at [facility]. Quit smoking: If you smoke or [...] 0 | 01/24/20 | | | (MYCOSTATIN) [id number] | | | | 14 | | [...] PASTOR | | | | | | [address] | | | | | | | [...] 12/19/2014 | PROVATION | | 11:46 AMMRN: [id number] #: [id number] of : | | | 1970Admit Type: AmbulatoryAge: 44Room: [facility] 02Gender: MaleNote | | | Status: FinalizedAttending MD: Jonathan Avendaño, [facility]: | | | Upper GI endoscopyIndications: Dyspepsia, Dysphagia, | | | Suspected esophageal reflux, NauseaProviders: Jonathan Kang | | | MD Jarocho, Shana Love RN, Karie Vasquez | | | Sridhar, Sack Sewer Machine, Blane Tompkins MD (Anesthesia | | | [...] the | | | anesthesiologist and the broadcast operations technician in the pre-procedure area in the [...] Scope In: 11:58:14 AMScope Out: 12:04:18 PM [place] | | | [facility], [address] [place] [address] | | | [phone] | | | - Regular diet. | [...] |Scope Out: 12:04:18 PM | | | [facility], [address] [place] [address] [place], [place] | | | [address] | | + + -+ + +---------+ [...] for | | | increased epithelial eosinophils. JVR:[facility]:C2NR GROSS | | | DESCRIPTION: A. [...] cm. All | | | into (C1). yyt:JVR:[facility] PERFORMING LABORATORY: Tissue processing | | | and slide preparation were performed by [facility], [address], [place] [address] (Adult Education Manager: Krishna | | Chuck Miranda M.D. CLIA#: [id number]). Professional interpretation was | | | performed by [facility], [facility] | | | Branch, [address] [place] [address] (Adult Education Manager: | | | Krishna Miranda M.D.; CLIA#: [id number]). Diagnostician: Krishna | | | Allan Miranda [...]
--- OUTSIDE RECORDS SUMMARY | ~2019-11-15 | XMS | Encounter Summary ---
Demographics + + + | Address | [address] | | | [place] [address] | + + + | Home Phone | | + + + | Preferred Language | Unknown | + + + | Marital Status | Single | + + + | Christianity Affiliation | [phone] | + + + [...] Team Providers + +------+ + | Care Supervisor Beet End Name | Role | Phone | + +------+ + | Edwar Wilhelm PA-C | PCP | | + +------+ + Encounter Details +--------+ + + + + | Date | Type | Department | Care Team | Description | +--------+ + + + + | 09/09/ | Documentati | [facility] | JanelleJewely Radha, | | | 2016 | on | MED CTR THERAPY PT | PT [address] | | | | | OP [address] | [place] | | | | | [place] | [address] | | | | | [address] | | | | | | [phone] | | | +--------+ + + + [...] | | | | | | [place] | | | | | | [address] | | | | | | | [...]
--- OUTSIDE RECORDS SUMMARY | ~2019-11-15 | XMS | Encounter Summary ---
Demographics + + + | Address | [address] | | | [place] [address] | + + + | Home Phone [...] Author | [facility] | | | and [place] | + + + | Organization | [facility] | | [...] Team Providers + +------+ + | Care Manager Field Name | Role | Phone | + [...] | +--------+ + + + + | 10/13/ | Home Care | [facility] [place] | Rosa Broderick | CASE COMMUNICATION | | 2020 | Visit | [facility] [address] | | | | | | [address] [place] | | | | | | [address] | | | | | | [phone] | | | +--------+ + + + [...] [place] | | | | | | [address] | | | | | | | | +--------+ + + + + documented as of this encounter Visit Diagnoses Not on filedocumented in this encounter"
--- OUTSIDE RECORDS SUMMARY | ~2019-11-15 | XMS | Encounter Summary ---
Demographics + + + | Address | [address] | | | [place] [address] | + + + | Home Phone | | + + + | Preferred Language | Unknown | + + + | Marital Status | Single | + + + | Rastafarian Affiliation | 1074 | + + + [...] Team Providers + +------+ + | Care General Farm Manager Name | Role | Phone | [...] [place] | | | | | | [address] | | | | | | [phone] | | | +--------+ + + + [...] any question 1-6 is yes. Consult with home visit field care manager prior to visit. S. Pt has [...] to provide after that. R Continue POC, [facility] umented in this encounter Plan of Treatment [...] | | | | | [place] | | | | | | [id number] | | | | | | | | +--------+ + + + + documented as of this encounter Visit Diagnoses Not on filedocumented in this encounter Home Health Visit - Care Plan + + | Visit Type - SN - REPEAT VISIT | | Discipline - Penitentiary | + + + + +--------+--------+-------+ + | Problem | Description | Start | Status | Goals | Interventio | | | | Date | | | ns | + + +--------+--------+-------+ + | HH Other Wound | Upper right back | | | - | 1 problem | | Disciplines: | scab healed over | | Active | | | | Penitentiary | Left buttock hx of | 020 [...] 020 | | | interventio | | Penitentiary | | | | | n | [...] | | Active | | | | Penitentiary | | 020 | | | interventio [...] | | | | n | | Penitentiary | | | | | scheduled/d | | | | | | | ocumented | | | | | | | in this | | | | | | | visit | + + +--------+--------+-------+ + | Wound Management | Right buttock | | | - | 1 problem | | Disciplines: | | | Active | | | | Penitentiary | | 020 | | | interventio [...]
--- OUTSIDE RECORDS SUMMARY | ~2019-11-15 | XMS | Encounter Summary ---
Demographics + + + | Address | [address] | | | [place] [address] | + + + | Home Phone [...] Author + + + | Author | [facility] | | | and [place] | + + + | Organization | [facility] | | [...] Team Providers + +------+ + | Care Commercial Engineer Name | Role | Phone | [...] | | | | | Procedures | [address] | [address] | | | | | 10/21 PEND | [place], | [address] | | | | | [place] | [place] [address] | [place] | | | | | | Phone: | [phone] | | | | | | [phone] | Phone: | | | | | | Fax: | [phone] | | | | | | [phone] | Fax: | | | | | | | [phone] | +--------+ + + + + + Encounter Details +--------+---------+ + + + | Date | Type | Department | Care Team | Description | +--------+---------+ + + + | 12/08/ | Office | [facility] | Jonathan Avendaño MD | Dysphagia (Primary | | 2015 | Visit | GASTROENTEROLOGY | [address] | Dx); RUQ pain; | | | | [address] [facility] | [place], [place] | Constipation, | | | | [address], [place] | [address] | unspecified | | | | [address] | [phone] | constipation type | | | | [phone] | | | +--------+---------+ + + + [...] MD - 12/08/2014 3:50 PM PDT [facility] [address] [facility] [address] OFFICE CONSULTATION JONATHAN AVENDAÑO MD Patient: MARTINEZ ABBASI Admitting: MR #: [id number] LOC: PT TYPE: Adm Date: 12/08/2014 : [...] this time. We will proceed with a nesthesia assistance due to the patient's quadriplegia. Indications, [...] daily. JONATHAN AVENDAÑO MD Dictated by JONATHAN AVEDNAÑO MD 12/08/2014 15:50:22 Transcribed on 12/09/2014 06:55:04 by danilo job# [id number] Confirmation #: [id number] cc: [facility] documented in this [...] [place]ettie | | | | | | [place] | | | | | | [address] | | | | | | | | +--------+ + + + + + + +--------+ + + | Name | Type | Priori | Associated Diagnoses | Order Schedule | | | | ty | | | + + +--------+ + + | * [facility] [place] | Outpatient | Routin | Epigastric [...]
--- OUTSIDE RECORDS SUMMARY | ~2019-11-15 | XMS | Clinical Summary ---
Demographics + + + | Address | [address] | | | [place] [address] | + + + | Home Phone | | + + + | Preferred Language | Unknown | + + + | Marital Status | Single | + + + | Sabianist Affiliation | 1074 | + + + [...] Team Providers + +------+ + | Care Conductor Orchestra Name | Role | Phone | + +------+ + | Karie Morin PA-C | PCP | | + +------+ + Allergies + + + + + + | Active Allergy | Reactions | Severity | Noted | Comments | | | | | Date | | + + + + + + | Bee Venom | Swelling, | High | 02/26/20 | | | | Anaphylaxis, Rash | | 13 | | + + + + + + | Honey Bee Venom | Swelling | Medium | 07/07/19 | | | | | | 14 | | + + + + + + | Wasp Venom Protein | Unknown | | 02/09/20 | | | | | | 13 | | + + + + + [...] qNoon, 1 qPM, | tablet | | 06/16 | | e | | tabletIndications: | and 2 qHS | | | 15 | | | | Abdominal spasms, | | | | | | | | Muscle spasm of both | | | | | | | | lower legs | | | | | | | + + + +---------+------+------+-------+ +---+ + | | Additional | | | InformationPatient | | | taking differently: | | | 2 tablet by mouth | | | qAM, 1 qNoon, and | | | 3qHS, Reported on | | | 01/13/2015 4:26 PM | +---+ + + + +---+---+------+---+-------+ | morphine (MSIR) 15 | Take 15 mg by mouth | | 0 | | | Activ | | mg tablet | 2 times daily. | | | | | e | + + +---+---+------+---+-------+ | BACLOFEN PO | Take 10 mg by mouth | | 0 | | | Activ | | | 3 (three) times | | | | | e | | | daily. 2 10 mg tabs | | | | | | | | tid | | | | | | + + +---+---+------+---+-------+ | lidocaine 2% | | | 0 | 07/1 | | Activ | | injection | | | | 2/20 | | e | | | | | | 17 | | | + + +---+---+------+---+-------+ | ascorbic acid | Take 500 mg by mouth | | 0 | | | Activ | | (VITAMIN C) 500 MG | 2 (two) times | | | | | e | | tablet | daily. | | | | | | + + +---+---+------+---+-------+ | bisacodyl | Insert 1 suppository | | 0 | 12/2 | | Activ | | (DULCOLAX) 10 mg | rectally once | | | 7/20 | | e | | suppository | daily. | | | 13 | | | + + +---+---+------+---+-------+ | Calcium | Take 1 tablet by | | 0 | | | Activ | | Carb-Cholecalciferol | mouth 3 (three) | | | | | e | | (CALCIUM-VITAMIN | times daily. | | | | | | | D3) 600-500 MG-UNIT | | | | | | | | CAPS | | | | | | | + + +---+---+------+---+-------+ | calcium carbonate | Take 2 tablets by | | 0 | 01/2 | | Activ | | (TUMS) 500 mg | mouth every 8 hours | | | 20 | | e | | chewable tablet | as needed. | | | 14 | | | + + +---+---+------+---+-------+ | ciprofloxacin | Take 500 mg by mouth | | 0 | | | Activ | | (CIPRO) 500 mg | 2 (two) times | | | | | e | | tablet | daily. Indications: | | | | | | | | Surgical Prophylaxis | | | | | | + + +---+---+------+---+-------+ | diazePAM (VALIUM) | Take 1 tablet by | | 0 | 12/2 | | Activ | | 5 mg tablet | mouth four times | | | 09/15 | | e | | | daily as needed. | | | 13 | | | + + +---+---+------+---+-------+ | enoxaparin | Inject 0.8 mL under | | 0 | 12/2 | | Activ | | (LOVENOX) 80 mg/0.8 | the skin (SUBC) | | | 7/20 | | e | | mL injection | every twelve hours. | | | 13 | | | + + +---+---+------+---+-------+ | guar gum | Take 1 packet by | | 0 | 12/2 | | Activ | | (NUTRISOURCE FIBER) | mouth three times | | | 09/15 | | e | | packet | daily. | | | 13 | | | + + +---+---+------+---+-------+ | lidocaine | Apply 2 patches to | | 0 | 12/2 | | Activ | | (LIDODERM) 5% patch | skin every | | | 20 | | e | | | twenty-four hours. | | | 13 | | | | | Apply patch [...] | period. | | | | | | + + +---+---+------+---+-------+ | menthol-zinc oxide | Apply topically 4 | | 0 | 01/2 | | Activ | | (RISAMINE) | times daily. | | | 4/20 | | e | | 0.44-20.625% | | | | 14 | | | | ointment | | | | | | | + + +---+---+------+---+-------+ | miconazole | Bid to rash | | 0 | 01/2 | | Activ | | (MICATIN) 2% cream | | | | 20 | | e | | | | | | 14 | | | + + +---+---+------+---+-------+ | Naproxen Sodium | Take 1 tablet by | | 0 | | | Activ | | 220 MG CAPS | mouth as needed. | | | | | e | + + +---+---+------+---+-------+ | nystatin | Bid to rash | | 0 | 01/2 | | Activ | | (MYCOSTATIN) [id number] | | | | /20 | | e | | UNIT/GM powder | | | | 14 | | | + + +---+---+------+---+-------+ | omeprazole | Take 1 capsule by | | 0 | 01/2 | | Activ | | (PRILOSEC) 20 mg | mouth every morning | | | 4/20 | | e | | capsule | (before breakfast). | | | 14 | | | + + +---+---+------+---+-------+ | oxyCODONE | Take 1-4 tablets by | | 0 | 01/2 | | Activ | | (ROXICODONE) 5 mg | mouth every 3 hours | | | 4/20 | | e | | tablet | as needed for Pain. | | | 14 | | | + + +---+---+------+---+-------+ | oxyCODONE | Take 1-2 tablets by | | 0 | 02/1 | | Activ | | (ROXICODONE) 5 mg | mouth every three | | | 3/20 | | e | | tablet | hours as needed for | | | 14 | | | | | severe pain. | | | | | | + + +---+---+------+---+-------+ | senna (SENOKOT) | Take 1 tablet by | | 0 | 01/2 | | Activ | | 8.6 mg tablet | mouth every morning. | | | 4/20 | | e | | | | | | 14 | | | + + +---+---+------+---+-------+ | sodium chloride | | | 0 | 08/1 | | Activ | | for irrigation 0.9% | | | | 5/20 | | e | | | | | | 17 | | | + + +---+---+------+---+-------+ | tiZANidine | Take 4 mg by mouth 3 | | 0 | | | Activ | | (ZANAFLEX) 4 MG | (three) times daily | | | | | e | | capsule | as needed for | | | | | | | | Muscle spasms. | | | | | | + + +---+---+------+---+-------+ | acetaminophen | Take 2 tablets by | | 0 | 12/2 | | Activ | | (TYLENOL) 325 mg | mouth every six | | | /20 | | e | | tablet | hours. | | | 13 | | | + + +---+---+------+---+-------+ | docusate sodium | Take 100 mg by mouth | | 0 | 01/2 | | Activ | | (COLACE) 100 mg | 2 times daily. | | | 4/20 | | e | | capsule | | | | 14 | | | + + +---+---+------+---+-------+ | gabapentin | Take 2 capsules by | | 0 | 01/2 | | Activ | | (NEURONTIN) 100 mg | mouth 3 times daily. | | | 4/20 | | e | | capsule | | | | 14 | | | + + +---+---+------+---+-------+ | | Take 1 tablet by | | 0 | | | Activ | | HYDROcodone-acetamin | mouth every 6 (six) | | | | | e | | ophen (NORCO) 10-325 | hours as needed for | | | | | | | mg per tablet | Pain. | | | | | | + + +---+---+------+---+-------+ | midodrine | Take 10 mg by mouth | | 0 | | | Activ | | (PROAMATINE) 10 MG | 3 (three) times | | | | | e | | tablet | daily. Indications: | | | | | | | | Blood Pressure Drop | | | | | | | | Upon Standing | | | | | | + + +---+---+------+---+-------+ | morphine (MSIR) 15 | Take 15 mg by mouth | | 0 | | | Activ | | mg tablet | 2 (two) times daily. | | | | | e | + + +---+---+------+---+-------+ | polyethylene | Take 17 g by mouth | | 0 | 12/2 | | Activ | | glycol (MIRALAX) | once daily at | | | 7/20 | | e | | powder | bedtime as needed | | | 13 | | | | | (No BM in past 3 | | | | | | | | days). | | | | | | + + +---+---+------+---+-------+ | loratadine | Take 10 mg by mouth | | 0 | 08/1 | | Activ | | (CLARITIN) 10 mg | Daily. | | | 4/20 | | e | | tablet | | | | 20 | | | + + +---+---+------+---+-------+ | ibuprofen (ADVIL, | Take 400 mg by mouth | | 0 | 08/1 | | Activ | | MOTRIN) 400 mg | every 8 hours as | | | 4/20 | | e | | tablet | needed for Pain. | | | 20 | | | + + +---+---+------+---+-------+ | aspirin 81 mg | Chew and swallow 81 | | 0 | 08/1 | | Activ | | chewable tablet | mg Daily. | | | 4/20 | | e | | | | | | 20 | | | + + +---+---+------+---+-------+ Active Problems + + + | Problem [...] bladder | 07/17/2013 | + + + + + | Overview: Overview: | | Hancock cath and eventual straight caths for paralysis. 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 | + + + + + | Bowel dysfunction | 02/16/2013 | + + + + + | Overview: Overview: D/t spinal cord injury. Aggressive bowel | | program with daily digital stim. | + + + + + | Pulmonary contusion | 02/12/2013 | + + + + + | Overview: Overview: | | Respiratory stable on room air. Quad cough assist as needed. | + + + + + | Quadriplegia | 02/12/2013 | + + + + + | Overview: Overview: | | See above. | + + + + + | Cervical spine fracture | 02/08/2013 | + + + + + | Overview: Overview: C7-W9ktibouqt with cord transection. | | Sensation intact from nipples up. Some movement of suzanne hands and | | arms. | + + + +---+ | SHOULDER PAIN, LEFT | | + +---+ Encounters +--------+ + + + + | Date | Type | Specialty | Care Team | Description | +--------+ + + + + | 11/12/ | Home Care | Home Health Services | Kayla Dior, | REPEAT VISIT | | 2019 | Visit | | RN | | +--------+ + + + + | 11/05/ | Home Care | Home Health Services | Kayla Dior | REPEAT VISIT | | 2019 | Visit | | RN | | +--------+ + + + + | 10/29/ | Home Care | Home Health Services | Kayla Dior, | SN REPEAT VISIT | | 2019 | Visit | | RN | | +--------+ + + + + | 10/23/ | Home Care | Home Health Services | Kayla Dior, | SN REPEAT VISIT | | 2019 | Visit | | RN | | +--------+ + + + + | 10/22/ | Home Care | Home Health Services | Liane Nolasco, PT | CASE COMMUNICATION | | 2019 | Visit | | | | +--------+ + + + + | 10/21/ | Home Care | Home Health Services | Briana Velasco, | CASE COMMUNICATION | | 2019 | Visit | | RN | | +--------+ + + + + | 10/18/ | Home Care | Home Health Services | Jennifer Laughlin RN | REPEAT VISIT | | 2019 | Visit | | | | +--------+ + + + + | 10/15/ | Home Care | Home Health Services | Kayla Dior, | REPEAT VISIT | | 2019 | Visit | | RN | | +--------+ + + + + | 10/13/ | Home Care | Home Health Services | Rosa Broderick | CASE COMMUNICATION | | 2019 | Visit | | | | +--------+ + + + + | 10/10/ | Home Care | Home Health Services | Silva Singh RN | SN SOC (OASIS) | | 2019 | Visit | | | | +--------+ + + + + | 10/10/ | Home Care | Home Health Services | Silva Singh RN | CASE COMMUNICATION | | 2019 | Visit | | | | +--------+ + + + + | 09/23/ | Office | Physical Medicine | Chris Priest, | Quadriplegia, C5-C7, | | 2019 | Visit | and Rehabilitation | MD | incomplete (HCC) | | | | | | (Primary Dx); | | | | | | Abdominal spasms; | | | | | | Muscle spasm of both | | | | | | lower legs; | | | | | | Neurogenic bowel; | | | | | | Neurogenic bladder; | | | | | | Impaired mobility | | | | | | and activities of | | | | | | daily living; | | | | | | Spasticity | +--------+ + + + + from Last 3 Months Immunizations + + + + | Name | Administration Dates | Next Due | + + + + | HEP A, 2 DOSE | 12/24/2013, 05/27/2011 | | | (ADULT) | | | + + + + | Hep B (PED/ADOL) 3 | 06/27/2008, 1970 | | | DOSE | | | + + + + | INFLUENZA PF | 12/18/2017, 02/14/2013 | | | QUAD(PED/ADOL/ADULT) | | | | ,PSKT or VIAL | | | + + + + | INFLUENZA PF | 11/19/2014 | | | TRIVALENT(PED/ADOL/A | | | | DULT), PSKT | | | + + + + | INFLUENZA QUADR | 12/24/2013 | | | W/PRES | | | | (PED/ADOL/ADULT) | | | | MULTIDOSE | | | + + + + | INFLUENZA, | 10/25/2010 | | | UNSPECIFIED | | | | FORMULATION | | | + + + + | PNEUMOCOCCAL | 09/23/2010 | | | POLYSACCHARIDE | | | | 23-VALENT (PPSV23) | | | + + + + | TDAP, (ADOL/ADULT) | 09/23/2011 | | + + + + Family History + + [...] + + + + | Pulse | 82 | 11/13/2019 9:10 AM | | | | | PDT | | + + + + + | Temperature | 36.7 C (98.1 F) | 11/13/2019 9:10 AM | | | | | PDT | | + + + + + | Respiratory Rate | 16 | 11/13/2019 9:10 AM | | | | | PDT | | + + + + + | Oxygen Saturation | 97% | 11/13/2019 9:10 AM | | | | | PDT [...] | | + + + + + Plan of Treatment +--------+ + + + [...] [place] | | | | | | [address] | | | | | | | | +--------+ + + + + + + + + + | Health Maintenance | Due Date | Last | Comments | | | | Done | | + + + + + | Hepatitis C | | | | | Screening | 1 | | | + + + + + | Medication | | | | | Management | 1 | | | + + + + + | Vaccine: | | 09/24/19 | | | Pneumococcal 19-64 | 2 | 11 | | | (2 of 3 - PCV13) | | | | + + + + + | Med Mgmt: BUN | | 11/10/19 | | | | 5 | 14, | | | | | 07/10/19 | | | | | 14, | | | | | 07/09/19 | | | | | 14, | | | | | Addition | | | | | al | | | | | history | | | | | exists | | + + + + + | Med Mgmt: Cr | | 11/10/19 | | | | 5 | 14, | | | | | 07/10/19 | | | | | 14, | | | | | 07/09/19 | | | | | 14, | | | | | Addition | | | | | al | | | | | history | | | | | exists | | + + + + + | Med Mgmt: HCT | | 11/10/19 | | | | 5 | 14, | | | | | 07/10/19 | | | | | 14, | | | | | 07/09/19 | | | | | 14, | | | | | Addition | | | | | al | | | | | history | | | | | exists | | + + + + + | Med Mgmt: HGB | | 11/10/19 | | | | 5 | 14, | | | | | 07/10/19 | | | | | 14, | | | | | 07/09/19 | | | | | 14, | | | | | Addition | | | | | al | | | | | history | | | | | exists | | + + + + + | Med Mgmt: PLT | | 11/10/19 | | | | 5 | 14, | | | | | 07/10/19 | | | | | 14, | | | | | 07/09/19 | | | | | 14, | | | | | Addition | | | | | al | | | | | history | | | | | exists | | + + + + + | Med Mgmt: RBC | | 11/10/19 | | | | 5 | 14, | | | | | 07/10/19 | | | | | 14, | | | | | 07/09/19 | | | | | 14, | | | | | Addition | | | | | al | | | | | history | | | | | exists | | + + + + + | Med Mgmt: eGFR | | 11/10/19 | | | | 5 | 14, | | | | | 07/10/19 | | | | | 14, | | | | | 07/09/19 | | | | | 14, | | | | | Addition | | | | | al | | | | | history | | | | | exists | | + + + + + | Adult Annual | | | | | Wellness Visit | 5 | | | + + + + + | Vaccine: Influenza | | 12/19/19 | | | (#1) | 0 | 18, | | | | | 11/20/19 | | | | | 15, | | | | | 12/25/19 | | | | | 14, | | | | | Addition | | | | | al | | | | | history | | | | | exists | | + + + + + | Vaccine: | | 09/23/19 | | | Dtap/Tdap/Td (2 - | 2 | 12 | | | Td) | | | | + + + [...] +--------+ +---------+--------+ | MEDICARE | MEDICA | [id number] | 07/29/19 | [phone] | | Medica | | | RE | | 16-Pre | 5 | | re | | | PART A | | sent | | | | | | AND B | | | | | | + +--------+ +--------+ +---------+--------+ | [facility] | IHS | [id number] | Effect | | | Indemn | | SERVICE | YELLOW | | michelle | | | ity | | | HAWK | | for | | | | | | | | all | | | | | | | | dates | | | | + +--------+ +--------+ +---------+--------+ | [employer] | [employer] | [id number] | 02/17/ | [phone] | | Medica | | MEDICAID HMO | HEALTH | | 2014-P | 1 | | id | | | MDCD | | resent | | | | | | [place]MO [place] | | | | | | + +--------+ +--------+ +---------+--------+ | [facility] | IHS | [id number] | | | | Indemn | | [...] | | al/Fam | | 1971 | [phone] | [place] [address] | | | adrián | | | 4 (Home) | | + +--------+ +--------+ + + | Martinez Abbasi II | Person | Self | [birth year] | | [address] | | | al/Fam | | 1971 | [phone] | [place] [address] | | | adrián | | | 4 (Home) | | + +--------+ +--------+ + + | Martinez Abbasi II | Person | Self | [birth year] | | [address] | | | al/Fam | | 1971 | [phone] | [place] [address] | | | adrián | | | 4 (Home) | | + +--------+ +--------+ + + Advance Directives + + + + + | Type | Date Recorded | Patient | Explanation | | | | Lieutenant Governor | | + + + + + | Power of | | | | | Floorwalker | | | | + + + + + | Advance | 12/19/2014 | | | | Directive | 10:41 AM | | | + + + + + + + + + + | Code Status | Date | Date | Comments | | | Activated | Inactivated | | + + + + + | Full Code | 07/06/2013 | 07/09/2013 | | | | 1:19 AM | 5:35 PM | | + + + + + + +---------+---+ | Orders discussed with: | Patient | | + +---------+---+
--- OUTSIDE RECORDS SUMMARY | ~2019-11-15 | XMS | Encounter Summary ---
Demographics + + + | Address | [address] | | | [place] [address] | + + + | Home Phone [...] Author + + + | Author | [facility] | | | and [place] | + + + | Organization | [facility] | | | [...] Providers + +------+ + | Care Change Room Attendant Name | Role | Phone | + [...] Rehabilitatio | quadriplegia | [address] | | | | n | at [address] | [address] | [place], | | | | | level (HCC) | [place], | [place] [address] | | | | | Impaired | [place] [address] | Phone: | | | | | mobility and | Phone: | [phone] | | | | | ADLs | [phone] | Fax: | | | | | Procedures | Fax: | [phone] | | | | | pt eval | [phone] | | +--------+ + + + + + Encounter Details +--------+---------+ + + + | Date | Type | Department | Care Team | Description | +--------+---------+ + + + | 03/12/ | Office | [facility] | Chris Priest, | Impaired mobility | | 2016 | Visit | [facility] PT | MD [address] | and activities of | | | | OP [address] | [place], [place] | daily living | | | | [place], [place] | [id number] | (Primary Dx); | | | | [address] | | Impaired functional | | | | [phone] | Della Ravi, PT | mobility, balance, | | | | | [address] | gait, and endurance; | | | | | [place], [place] | Quadriplegia, | | | | | [address] | C5-C7, incomplete | | | | | | ([facility]); Posture | | | | | | [...] might be different from t he original. [facility] THER[facility] PT OP [address] [place] [address] Physical Therapy Daily Treatment Note Date: 03/12/2015 [...] Rehab Precautions Office Visit from 02/23/2015 in [facility] OP Rehab Precautions Precautions Spinal, Cervical Rehab Learning Style Office Visit from 02/23/2015 in [facility] OP Learning Style [...] LONG | | | | | | [address] | | | | | | | [...]
--- OUTSIDE RECORDS SUMMARY | ~2019-11-15 | XMS | Encounter Summary ---
Demographics + + + | Address | [address] | | | [place] [address] | + + + | Home Phone | | + + + | Preferred Language | Unknown | + + + | Marital Status | Single | + + + | Taoist Affiliation | 1074 | + + + [...] Providers + +------+ + | Care Hydraulic And Plumbing Installer Name | Role | Phone | [...] [place] | | | | | | [address] | | | | | | [phone] | | | +--------+ + + + [...] + documented in this encounter Miscellaneous Notes [facility] - Silva Singh RN - 10/11/2019 10:45 AM PDTVerified patient by name and date of . S- Patient admitted to [facility] following a ED referral. Patient diagnosed with [...] chair and lines/drains/tubes: chronic daly catheter.Patient refused PILE DRIVING TECHNICIAN or PT/OT. Mother and sister a re his caregivers. Patient transfers with transfer board. Denies any falls. Requested orders from Urology at [facility] for daly catheter change so patient doesn't [...] on prevention of CO VID-19 spread [facility] protocols for prevention. Provided education on COVID-19 symptoms(Cou gh, fever, sore throat, SOB)and risk factors (underlying disease, recent travel, pt. conta ct with +COVID-19 person). Provided education on when to contact health group care worker a nd when to seek medical care. [...] any question 1-6 is yes. Consult with fruit or nut crops farm manager prior to visit.Electronically s igned by [...] [place] | | | | | | [id number] | | | | | | | | +--------+ + + + + documented as of this encounter Visit Diagnoses Not on filedocumented in this encounter Home Health Visit - Care Plan + + | Visit Type - SN - OASIS START OF CARE | | Discipline - Mcfp | + + + + +--------+--------+-------+ + | Problem | Description | Start | Status | Goals | Interventio | | | | Date | | | ns | + + +--------+--------+-------+ + | HH Other Wound | Upper right back | | | - | 1 problem | | Disciplines: | scab healed over | | Active | | | | Mcfp | Left buttock hx of | 020 [...] 020 | | | interventio | | Mcfp | | | | | n | [...] 020 | | | interventio | | Mcfp | | | | | n | [...] | | Active | | | | Mcfp | | 020 | | | interventio [...] | | Active | | | | Mcfp | | 020 | | | interventio [...] 020 | | | interventio | | Mcfp | | | | | n | [...] | | Active | | | | Mcfp | | 020 | | | interventio [...] | | | | n | | Mcfp | | | | | scheduled/d | | | | | | | ocumented | | | | | | | in this | | | | | | | visit | + + +--------+--------+-------+ + | Wound Management | Right buttock | | | - | 1 problem | | Disciplines: | | | Active | | | | Mcfp | | 020 | | | interventio [...] to | | | | | | [facility] for counseling | | | | | [...] | Description: | | | | change [id number]. | | Requested orders | | | [...]
--- OUTSIDE RECORDS SUMMARY | ~2019-11-15 | XMS | Encounter Summary ---
Demographics + + + | Address | [address] | | | [place] [address] | + + + | Home Phone [...] Author + + + | Author | [facility] | | | and [place] | + + + | Organization | [facility] | [...] Team Providers + +------+ + | Care Internet Marketing Consultant Name | Role | Phone | + +------+ + | Edwar Wilhelm PA-C | PCP | | + +------+ + Encounter Details +--------+ + + + + | Date | Type | Department | Care Team | Description | +--------+ + + + + | 05/17/ | Documentati | [facility] | Della Ravi, | | | 2017 | on | MED CTR THERAPY PT | PT [address] | | | | | OP [address] | [place] | | | | | [place] | [address] | | | | | [address] | | | | | | [phone] | | | +--------+ + + + [...] Ren, PT - 05/17/2016 10:12 AM [facility] OP [address] [place] [address] Physical Therapy Discharge Note This discharge is associated with the evaluation completed on 02/23/15. Date: 05/17/2016 Patient Information Patient Name: Martinez Abbais II Date of : 1970 Age: 45 [...] [place] | | | | | | [address] | | | | | | | | +--------+ + + + + documented as of this encounter Visit Diagnoses Not on filedocumented in this encounter"
--- OUTSIDE RECORDS SUMMARY | ~2019-11-15 | XMS | Encounter Summary ---
Demographics + + + | Address | [address] | | | [place] [address] | + + + | Home Phone [...] Author + + + | Author | [facility] | | | and [place] | + + + | Organization | [facility] | | | and [...] Providers + +------+ + | Care Car Builder Name | Role | Phone | + [...] Rehabilitatio | quadriplegia | [address] | | | | n | at [address] | [address] | [place], | | | | | level (HCC) | [place], | [place] [address] | | | | | Impaired | [place] [address] | Phone: | | | | | mobility and | Phone: | [phone] | | | | | ADLs | [phone] | Fax: | | | | | Procedures | Fax: | [phone] | | | | | pt eval | [phone] | | +--------+ + + + + + Encounter Details +--------+---------+ + + + | Date | Type | Department | Care Team | Description | +--------+---------+ + + + | 03/24/ | Office | [facility] | Chris Priest, | Impaired mobility | | 2016 | Visit | MED CTR THERAPY PT | MD [address] | and activities of | | | | OP [address] | [place], [place] | daily living | | | | [place], [place] | [address] | (Primary Dx); | | | | [address] | | Impaired functional | | | | [phone] | Della Ravi, PT | mobility, balance, | | | | | [address] | gait, and endurance; | | | | | [place], [place] | Quadriplegia, | | | | | [address] | C5-C7, incomplete | | | | | | ([facility]); Posture | | | | | Claudia Bragg, | imbalance; Neck | | | | | THERMODYNAMICS PROFESSOR | pain; Bilateral | | | | [...] encounter Progress Notes Della Ren, PT - 03/24/2015 4:00 PM PSTFormatting of this note might be different from t he original. [facility] CTR THERAPY PT OP [address] [place] [address] Physical Therapy Daily Treatment Note Date: 03/24/2015 Patient Information Patient Name: Martinez Abbasi II [...] Rehab Precautions Office Visit from 02/23/2015 in [facility] CTR THERAPY PT OP Rehab Precautions Precautions Spinal, Cervical Rehab Learning Style Office Visit from 02/23/2015 in [facility] CTR THERAPY PT OP Learning Style Patient's Optimum Learning Style listening, reading, observation, performance of task Start Time: 1600 Stop time: 1645 Duration: 45 minutes Timed Treatment Codes: 45 minutes # of PT Visits to Date: 3 Subjective: pt arrived with girlfriend Jael. Pt reports that he is having 4/10 right shoul tamela pain. Pain Assessment: Pain Rating Pre Assessment: 4 Location: right shoulder Objective: Seated Vitals: BP: 146/76 HR: 64 bpm SpO2: 98% Initial standing: BP 132/74 Standing 5 min: BP 120/74 Standing frame: total stand time 10 minutes Pt did report that he was feeling a little light headed and requested to sit. Discussed options for standing frames at home with pt. And Jael. Assessment: pt reported that this session he felt more comfortable is the frame and stated that he was more confident with the process being safe. Pt did report some discomfort in his right ankle after standing for approx. 10 min.; no visible signs of pressure/sores observed . Pt would benefit from cont. Use of standing frame to determine which style will provide th e best support and improve safety of use of standing frame and to use with 1 person assist f or at home. Next Visit: Cont. With trunk/core strengthening, neck/shoulder pain, transfers, assess karmen salazar frame fit/caregiver training, Electronically signed by: Della Ren PT, 03/24/2015 17:01 Patient Name: Martinez Abbasi II/: 1970/ documented [...] 12/24/ | Office | Physical Medicine | Chrsi Priest, | | | 2019 | Visit | and Rehabilitation | [address] | | | | | | [place] | | | | | | [address] | | | | | | | [...]
--- OUTSIDE RECORDS SUMMARY | ~2019-11-15 | XMS | Encounter Summary ---
Demographics + + + | Address | [address] | | | [place] [address] | + + + | Home Phone | | + + + | Preferred Language | Unknown | + + + | Marital Status | Single | + + + | Hindu Affiliation | 1074 | + + + [...] Team Providers + +------+ + | Care Archivist Military History Name | Role | Phone | + +------+ + | Edwar Wilhelm PA-C | PCP | | + +------+ + Reason for Visit + + + | Reason | Comments | + + + | Ankle Injury | | + + + | Knee Injury | | + + + Encounter Details +--------+ + + + + | Date | Type | Department | Care Team | Description | +--------+ + + + + | 11/24/ | Emergency | [facility] | [place], | Fibula fracture, | | 2014 | | MED CTR EMERGENCY | Eliu Garcia MD [address] | left, closed, | | | | CENTER [address] | [facility] | initial encounter | | | | [place] | [place] [address] | (Primary Dx); Left | | | | [address] | [phone] | knee sprain, initial | | | | [phone] | | encounter | +--------+ + + + + Social [...] + + + | Blood Pressure | 108/64 | 11/24/2014 11:53 AM | | | | | PDT | | + + + + + | Pulse | 73 | 11/24/2014 11:53 AM | | | | | PDT | | + + + + + | Temperature | 36.7 C (98.1 F) | 11/24/2014 11:53 AM | | | | | PDT | | + + + + + | Respiratory Rate | 16 | 11/24/2014 11:53 AM | | | | | PDT | | + + + + + | Oxygen Saturation | 95% | 11/24/2014 11:53 AM | | | | | PDT | | + + + + + | Inhaled Oxygen | - | - | | | Concentration | | | | + + + + + | Weight | 99.8 kg (220 lb) | 11/24/2014 11:53 AM | | | | | PDT | | + + + + + | Height | 177.8 cm (5' 10") | 11/24/2014 11:53 AM | | | | | PDT | | + + + + + | Body Mass Index | 31.57 | 11/24/2014 11:53 AM | | | | | PDT | | + + + + + documented in this encounter Discharge Instructions lEiu Rosas MD - 11/24/2014Use a walking boot to help stabilize the ankle. Recommend repeat x-rays in 2-3 weeks. Ice and elevate to help with swelling and pain documented in this encounter Medications at Time [...] | 0 | 01/24/20 | | | (MICATIN) 2% cream | [...] 0 | 03/22/19 | | | (MYCOSTATIN) [id number] | | | | 14 | | [...] encounter ED Notes Eliu Jacob MD - 11/24/2014 12:28 PM PDTFormatting of this note might be differe nt from the original. [facility] Martinez Abbasi II Emergency Department Encounter Note [address] [place] [id number] PCP:Edwar Wilhelm PA-C [phone] CHIEF COMPLAINT Chief Complaint Patient presents with Ankle Injury Knee Injury ED Room: ED09/ED09 HPI Martinez Abbasi II is a 44 y.o. male who presents for evaluation of left ankle and knee pain . Patient is wheelchair-bound and yesterday was turning and his left foot caught in the [place]zman ling and it twisted his ankle and knee. Today it is quite swollen. He is insensate from th e waist down but states he has been having episodes of autonomic dysreflexia and noted the s welling and so thought he had better come in to have it evaluated. PAST MEDICAL & SURGICAL HISTORY Past Medical [...] 20 MG TABLET 1 tablet by mouth qAM, 1 qNoon, 1 qPM, and 2 qHS CALCIUM-VITAMIN D (OSCAL) 500 MG-200 UNITS PER [...] daily. GABAPENTIN (NEURONTIN) 100 MG CAPSULE Take 300 mg by mouth 3 times daily. HYDROCODONE-ACETAMINOPHEN (NORCO) 10-325 MG PER TABLET Take 1 tablet by mouth every 8 h ours as needed for Pain. MIDODRINE (PROAMATINE) 10 MG TABLET Take 10 [...] Venom Honey Bee Venom Other (See Comments) SOCIAL HISTORY History Social History Marital Status: [...] SYSTEMS As in history of present illness. PHYSICAL EXAM VITAL SIGNS: (first vital signs):Temp: 36.7 C (98.1 F) Pulse: 73 Resp: 16 SpO2: 95 % BP : 108/64 mmHg Constitutional: no distress Neurologic: Alert & oriented. Psychiatric: Normal mood, affect and judgement. Extremities: Left knee has some slight soft tissue swelling no instability noted. Left ank le is quite swollen over the lateral malleolus. Excellent pulses ED COURSE & MEDICAL DECISION MAKING Pertinent Labs & Imaging studies reviewed. X-rays were interpreted by myself. Medications and Allergy list as well as nursing notes and prior records were reviewed. After initial examination I did order x-rays of the knee and ankle. These do demonstrate a distal fibula fracture that is nondisplaced. Knee appears normal. He'll be placed in a wa lking boot to help protect the ankle. He will follow up in 2 weeks for repeat x-rays prior to continuing his physical therapy which involves a "standing machine." Imaging Results (X-rays interpreted by ED physician) Left knee x-ray shows no fractures Left ankle x-ray shows distal fibula fracture. No instability suggested or mortise wide alfonso FINAL IMPRESSION ICD-9-CM ICD-10-CM 1. Fibula fracture, left, closed, initial encounter 823.21 S82.402A 2. Left knee sprain, initial encounter 844.9 S83.92XA Follow-up Information Follow up with Edwar Wilhelm PA-C. Specialty: Physician [facility] Contact information: [address] [place] [address] Eliu Jacob MD 11/24/14 1230 do cumented in this encounter Miscellaneous Notes ED Triage Notes - Peg Painting, RN - 11/24/2014 11:48 AM PDTLeft ankle injury and possi kelly left knee injury yesterday 1999. Pt was in w/c and was turning when left ankle was caug ht in rail. Left ankle lateral swelling. Electronically signed by Peg Painting RN at 0 11/24/2014 11:53 AM PDTdocumented in this encounter Plan of [...] | and Rehabilitation | [address] | | | | | | [place] | | | | | | [address] | | | | | | | | +--------+ + + + + documented as of this encounter Procedures + +--------+ + + + | Procedure Name | Priori | Date/Time | Associated Diagnosis | Comments | | | ty | | | | + +--------+ + + + | XR ANKLE LEFT 3 + VW | STAT | 11/24/2014 | | Results for this | | | | 12:15 PM | | procedure are in the | | | | PDT | | results section. | + +--------+ + + + | XR KNEE LEFT 1 - 2 | STAT | 11/24/2014 | | Results for this | | VW | | 12:15 PM | | procedure are in the | | | | PDT | | results section. | + +--------+ + + + documented in this encounter Results XR Ankle Left 3 + Vw (11/24/2014 12:15 PM PDT) + + | Specimen | + + | | + + + + + | Narrative | Performed At | + + + | LEFT ANKLE: 11/24/2014 12:15 PM CLINICAL HISTORY: ANKLE INJURY | [facility] | | KNEE INJURY COMPARISON: None FINDINGS: AP lateral and oblique | | | views of the left ankle. Generalized severe osteopenia suggests | | | nonweightbearing status. Nondisplaced transverse fracture of the left | | | lateral malleolus. This is actually visible only on the AP view. No | | | other acute fracture is evident. Ankle mortise is normally | | | maintained. Margins of the talus appears intact. 2 threaded screws | | | in the proximal first metatarsal. Lateral soft tissue swelling. | | | IMPRESSION - Nondisplaced transverse fracture of the lateral | | | malleolus. Generalized severe osteopenia. Dictated and Signed by: | | | Fadi Torres MD Electronically signed: 11/24/2014 12:26 PM | | + + + + + | Procedure Note | + + | Td Meneses Results In - 11/24/2014 12:29 PM PDT LEFT ANKLE: 11/24/2014 12:15 PM | | | | CLINICAL HISTORY: ANKLE INJURY | | KNEE INJURY | | | | COMPARISON: None | | | | FINDINGS: AP lateral and oblique views of the left ankle. | | | | Generalized severe osteopenia suggests nonweightbearing status. Nondisplaced | | transverse fracture of the left lateral malleolus. This is actually visible only | | on the AP view. No other acute fracture is evident. Ankle mortise is normally | | maintained. Margins of the talus appears intact. | | | | 2 threaded screws in the proximal first metatarsal. Lateral soft tissue | | swelling. | | | | IMPRESSION - Nondisplaced transverse fracture of the lateral malleolus. | | Generalized severe osteopenia. | | | | Dictated and Signed by: Fadi Torres MD | | Electronically signed: 11/24/2014 12:26 PM | + + + +---------+ + + | Performing | Address | City/State/Zipcode | Phone Number | | Organization | | | | + +---------+ + + | [facility] | | | | + +---------+ + + XR Knee Left 1 - 2 Vw (11/24/2014 12:15 PM PDT) + + | Specimen | + + | | + + + + + | Narrative | Performed At | + + + | LEFT KNEE: 11/24/2014 12:15 PM CLINICAL HISTORY: ANKLE INJURY | [facility] | | KNEE INJURY COMPARISON: None FINDINGS: AP and crosstable | | | lateral views of the left knee. Generalized osteopenia and lack of | | | muscular soft tissue density, suggesting nonweightbearing status. No | | | fracture or focal bony abnormality. No joint effusion. | | | IMPRESSION - Osteopenia. No acute bony abnormality. Dictated and | | | Signed by: Fadi Torres MD Electronically signed: 11/24/2014 | | | 12:40 PM | | + + + + + | Procedure Note | + + | Gideon, Rad Results In - 11/24/2014 12:43 PM PDT LEFT KNEE: 11/24/2014 12:15 PM | | | | CLINICAL HISTORY: ANKLE INJURY | | KNEE INJURY | | | | COMPARISON: None | | | | FINDINGS: AP and crosstable lateral views of the left knee. | | | | Generalized osteopenia and lack of muscular soft tissue density, suggesting | | nonweightbearing status. No fracture or focal bony abnormality. No joint | | effusion. | | | | IMPRESSION - Osteopenia. No acute bony abnormality. | | | | Dictated and Signed by: Fadi Torres MD | | Electronically signed: 11/24/2014 12:40 PM | + + + +---------+ + + | Performing | Address | City/State/Zipcode | Phone Number | | Organization | | | | + +---------+ + + | [facility] | | | | + +---------+ + + documented in this encounter Visit Diagnoses + + | Diagnosis | + + | Fibula fracture, left, closed, initial encounter - Primary | + + | Left knee sprain, initial encounter | + + documented in this encounter
--- OUTSIDE RECORDS SUMMARY | ~2019-11-15 | XMS | Encounter Summary ---
Demographics + + + | Address | [address] | | | [place] [address] | + + + | Home Phone [...] Author + + + | Author | [facility] | | | and [place] | + + + | Organization | [facility] | | | and [...] Team Providers + +------+ + | Care Auto Parts Clerk Name | Role | Phone | + +------+ + | Edwar Wilhelm PA-C | PCP | | + +------+ + Encounter Details +--------+ + + + + | Date | Type | Department | Care Team | Description | +--------+ + + + + | 04/13/ | Documentati | [facility] | Della Ravi, | | | 2016 | on | MED CTR THERAPY PT | PT [address] | | | | | OP [address] | [place] | | | | | [place] | [address] | | | | | [address] | | | | | | [phone] | | | +--------+ + + + [...] Ren, PT - 04/13/2015 1:20 PM [facility] [place] [address] [place] [address] Cancellation Date: 04/13/2015 Patient Information Patient Name: Martinez Abbasi II Date of : 1970 Age: 44 y.o. Reason for missed visit: pt called to cancel due to illness Phone call placed: no Plan: Cont with POC Electronically signed by: Della Ren, PT, 04/13/2015 13:20 Patient Name: Martinez Abbasi [...] [place] | | | | | | [id number] | | | | | | | | +--------+ + + + + documented as of this encounter Visit Diagnoses Not on filedocumented in this encounter"
--- OUTSIDE RECORDS SUMMARY | ~2019-11-15 | XMS | Encounter Summary ---
Demographics + + + | Address | [address] | | | [place] [address] | + + + | Home Phone | | + + + | Preferred Language | Unknown | + + + | Marital Status | Single | + + + | Zoroastrianism Affiliation | 1074 | + + + | Race | or | + + + | Ethnic Group | Not or | + + + Author + + + | Author | [facility] | | | and [place] | + + + | Organization | [facility] | | [...] Team Providers + +------+ + | Care Skidway Man Name | Role | Phone | + +------+ + | Edwar Wilhelm PA-C | PCP | | + +------+ + Encounter Details +--------+ + + + + | Date | Type | Department | Care Team | Description | +--------+ + + + + | 12/21/ | Documentati | [facility] | JanelleJewely Radha, | | | 2016 | on | MED CTR THERAPY PT | PT [address] | | | | | OP [address] | [place] | | | | | [place] | [address] | | | | | [address] | | | | | | [phone] | | | +--------+ + + + [...] Tori Luis, PT - 12/22/2015 4:09 PM SHABBIR spoke to Kendall at [facility] who reporte d that they received [...] [place] | | | | | | [address] | | | | | | | [...]
--- OUTSIDE RECORDS SUMMARY | ~2019-11-15 | XMS | Encounter Summary ---
Demographics + + + | Address | [address] | | | [place] [address] | + + + | Home Phone [...] Author + + + | Author | [facility] | | | and [place] | + + + | Organization | [facility] | | [...] Team Providers + +------+ + | Care Drum Saw Operator Name | Role | Phone | [...] | | | | | [address] [facility] | [place] [address] | | | | | [place] [address] | | | | | | [phone] | | | +--------+ + + + [...] [place] | | | | | | [address] | | | | | | | [...]
--- OUTSIDE RECORDS SUMMARY | ~2019-11-15 | XMS | Encounter Summary ---
Demographics + + + | Address | [address] | | | [place] [address] | + + + | Home Phone [...] Team Providers + +------+ + | Care Acquisition Marketing Manager Name | Role | Phone | [...] + | 10/29/ | Home Care | [facility] | Kayla Dior, | SN REPEAT VISIT | | 2019 | Visit | CLIFF [address] | [place] | | | | | [address] [place] | | | | | | [address] | | | | | | [phone] | | | +--------+ + + + [...] + + + | Blood Pressure | 120/70 | 10/30/2019 10:36 AM | | | | | PDT | | + + + + + | Pulse | 82 | 10/30/2019 10:36 AM | | | | | PDT | | + + + + + | Temperature | 36.7 C (98.1 F) | 10/30/2019 10:36 AM | | | | | PDT | | + + + + + | Respiratory Rate | 14 | 10/30/2019 10:36 AM | | | | | PDT | | + + + + + | Oxygen Saturation | 97% | 10/30/2019 10:36 AM | | | | | PDT [...] Home Health - Kayla Dior RN - 10/30/2019 10:30 AM PDT1) Are you or anyone you [...] any question 1-6 is yes. Consult with patient relations manager prior to visit. S Quadriplegic with stage 3 pressure ulcer to L buttock B Pt is quadriplegic, h/o UTI, Suprapubic catheter A RN provided wound care to L buttock wound. wound bed has less slough and is somewhat de eper now. Edges of wound bed are red granulating tissue. Wound measurments are smaller. P t is staying in bed out of chair and keeping pressure off of wound which is helping a lot. R. Continue POC with catheter change next week. documented in this encounter Plan of Treatment +--------+ + + + + | Date | Type | Specialty | Care Team | Description | +--------+ + + + + | 11/19/ | Home Care | Home Health Services | Kayla Dior, | | 2019 | Visit | | [place] | | +--------+ + + + + [...] [place] | | | | | | [address] | | | | | | | | +--------+ + + + + documented as of this encounter Visit Diagnoses Not on filedocumented in this encounter Home Health Visit - Care Plan + + | Visit Type - SN - REPEAT VISIT | | Discipline - Long-Term | + + + + +--------+--------+-------+ + | Problem | Description | Start | Status | Goals | Interventio | | | | Date | | | ns | + + +--------+--------+-------+ + | HH Other Wound | Upper right back | | | - | 1 problem | | Disciplines: | scab healed over | | Active | | | | Long-Term | Left buttock hx of | 020 [...] 020 | | | interventio | | Long-Term | | | | | n | [...] | | Active | | | | Long-Term | | 020 | | | interventio [...] | | Active | | | | Long-Term | | 020 | | | interventio [...] | | | | n | | Long-Term | | | | | scheduled/d | | | | | | | ocumented | | | | | | | in this | | | | | | | visit | + + +--------+--------+-------+ + | Wound Management | Right buttock | | | - | 1 problem | | Disciplines: | | | Active | | | | Long-Term | | 020 | | | interventio [...] to | | | | | | [place] for counseling | | | | | | for other mental | | | | | | health services. | | | | | + + +--------+--------+ + | Fall prevention | Problem: HH SHARED | | | | | Description: RN to | FALLS | Comple | | | | assess patient | | caren | | | | history of falls at | | | | | | each home visit. RN | [...]
--- OUTSIDE RECORDS SUMMARY | ~2019-11-15 | XMS | Encounter Summary ---
Demographics + + + | Address | [address] | | | [place] [address] | + + + | Home Phone [...] Author | [facility] | | | and [place] | + + + | Organization | [facility] | | | [...] Team Providers + +------+ + | Care Field Supervisor Seed Production Name | Role | Phone | + [...] Rehabilitatio | quadriplegia | [address] | | | | n | at [address] | [place], | | | | | level (HCC) | [place], | [place] [address] | | | | | Impaired | [place] [address] | Phone: | | | | | mobility and | Phone: | [phone] | | | | | ADLs | [phone] | Fax: | | | | | Procedures | Fax: | [phone] | | | | | pt eval | [phone] | | +--------+ + + + + + Encounter Details +--------+---------+ + + + | Date | Type | Department | Care Team | Description | +--------+---------+ + + + | 07/01/ | Office | [facility] | Chris Priest, | Impaired mobility | | 2016 | Visit | MED CTR THERAPY PT | MD [address] | and activities of | | | | OP [address] | [place], [place] | daily living | | | | [place], [place] | [address] | (Primary Dx); | | | | [address] | | Impaired functional | | | | [phone] | Tori Luis, PT | mobility, balance, | | | | | [address] | gait, and endurance; | | | | | [place], [place] | Quadriplegia, | | | | | [address] | C5-C7, incomplete | | | | | | ([facility]); Posture | | | | | Igor [...] encounter Progress Notes Tori Luis, PT - 07/02/2015 5:03 PM PDTFormatting of this note might be different fro m the original. [facility] CTR THERAPY PT OP [address] [place] [address] Physical Therapy Daily Treatment Note Date: 07/02/2015 Patient Information Patient Name: Martinez Abbasi II [...] Rehab Precautions Office Visit from 02/23/2015 in [facility] CTR THERAPY PT OP Rehab Precautions Precautions Spinal, Cervical Rehab Learning Style Office Visit from 02/23/2015 in [facility] CTR THERAPY PT OP Learning Style Patient's Optimum Learning Style listening, reading, observation, performance of task Start Time: 1610 Stop time: 1700 Duration: 50 minutes Timed Treatment Codes: 50 minutes # of PT Visits to Date: 7 Subjective: Call made to [facility] / [facility]- Letter of Medical Necessity sent to [facility] 06/30/15. I made a followup call today to verify receipt of fax. Talked to Kendall sauer ryan has not yet received fax, but will call and let me know if he locates it. Martinez reports that he has been working with the foam block and therabands at home, and feels like his R steven nd and L arm are getting stronger. He attends with his mother today, who verifies that he h as been able to lift himself better/ assist better during transfers. He has questions regar ding planned activities for today and specific exercises. Agreeable to sitting balance work on mat, reports onset of fatigue and need to return to chair following trunk work. Pain Ass essment: Pain Rating Pre Assessment: 2 Location: R shoulder, neck pain Objective: Education: -transfer mechanics, supine exercises to engage trunk, prebridging, sit balance progression , status of standing frame acquisition Exercise/Activity 07/02/15 Transfers wc to mat/ mat to wc Mat elevator utilized to provide for downhill transfer both directions- Moderate assist Sit balance work Hands on knees - up to 2 -3 min at a time without support Chin tucks Full cues for technique/ to avoid neck extension- achieves good technique in sma ll range with repetition and instruction Shoulder rolls/ scapular retraction Active assistive, progression to segmental assisted tho racic extension in gentle range with soft large ball Trunk strengthening Progressive posterior lean for modified partial situp- able to progress from one inch to three inches, 8 reps at a time with fatigue Active trunk rotation L and R, up to 20 degrees rotation from neutral- progressive shoulder and neck tension, fatigue- followed with chin tucks and postural education Assessment: limited functional endurance for out of chair activity, He achieves some targe caren active trunk flexion and rotation in small range with tendency to attempt substitution/ build tension in upper trap and cervical extensors- Currently requiring full cues for corre ct chin tuck technique Plan: followup on standing frame, progressive mobility, sit balance, functional strengthening of trunk, UE ,further assessment of LE innervation Electronically signed by: Tori Luis PT, 07/02/2015 17:03 Patient Name: Martinez [facility] II/: 1970/ documented in this en counter [...] 12/24/ | Office | Physical Medicine | PriestChris, | | | 2019 | Visit | and Rehabilitation | [address] | | | | | | [place] | | | | | | [address] | | | | | | | [...]
--- OUTSIDE RECORDS SUMMARY | ~2019-11-15 | XMS | Encounter Summary ---
Demographics + + + | Address | [address] | | | [place] [address] | + + + | Home Phone [...] Team Providers + +------+ + | Care Hard Tile Setter Apprentice Name | Role | Phone | + +------+ + | Edwar Wilhelm PA-C | PCP | | + +------+ + Reason for Visit +--------+ + | Reason | Comments | +--------+ + | Spasms | | +--------+ + Encounter Details +--------+---------+ + + + | Date | Type | Department | Care Team | Description | +--------+---------+ + + + | 10/29/ | Office | [facility] | Chris Priest, | Quadriplegia, C5-C7 | | 2013 | Visit | PHYSIATRY [address] | MD [address] | incomplete (HCC) | | | | [address] | [place], [place] | (Primary Dx); | | | | [place], [place] | [address] | Pressure ulcer, | | | | [address] | | buttock, left, | | | | [phone] | | unstageable (HCC); | | | | | | Neurogenic bowel; | | | | | | Neurogenic bladder; | | | | | | Abdominal spasms; | | | | | | Muscle spasm of both | | | | | | lower legs; DVT | | | | | | prophylaxis | +--------+---------+ + + + Social History [...] + + + | Blood Pressure | 88/54 | 10/29/2013 1:32 PM | | | | | PDT | | + + + + + | Pulse | 66 | 10/29/2013 1:32 PM | | | | | PDT | | + + + + + | Temperature | - | - | | + + + + + | Respiratory Rate | 18 | 10/29/2013 1:32 PM | | | | | PDT | | + + + + + | Oxygen Saturation | - | - | | + + + + + | Inhaled Oxygen | - | - | | | Concentration | | | | + + + + + | Weight | 90.7 kg (200 lb) | 10/29/2013 1:32 PM | | | | | PDT | | + + + + + | Height | 177.8 cm (5' 10") | 10/29/2013 1:32 PM | | | | | PDT | | + + + + + | Body Mass Index | 28.7 | 10/29/2013 1:32 PM | | | | | PDT | | + + + + + documented in this encounter Patient Instructions Patient Instructions Chris Priest MD - 10/29/2013 2:08 PM PDTLaboratory tests have bee n requested. Please go to the lab to complete your laboratory testing. The results of your laboratory testing will be reviewed at your next appointment. If your labratory results de monstrate any emergent results the clinic will contact you. Continue baclofen. Continue bowel program. Continue routine pressure relief. Continue participation in Physical Therapy and Occupational Therapy. Proceed with plan for suprapubic catheter. documented in this encounter Progress Notes Chris Priest MD - 10/29/2013 2:09 PM PDTThis office note has been dictated. Job ID# [id number] signed by Chris Priest MD at 10/29/2013 2:26 PM Lauren Guajardo RN - 10/29/2013 1:34 PM PDTPatient states mild soreness from PT, but no pain. Patient st ates intermittent spasms. P M Chris Ware MD - 10/29/2013 12:00 AM PDT PHYSICAL MEDICINE AND REHAB [address] [place] [address] [id number] FAX: [phone] OFFICE VISIT PHYSICAL MEDICINE REHABILITATION PROGRESS NOTE PRIMARY CARE PROVIDER: Edwar Wilhelm PA-C DATE OF SERVICE: 10/29/2013 PATIENT IDENTIFICATION: A 43-year-old male with C6 DYLAN B Incomplete quadriplegia. HISTORY OF PRESENT ILLNESS: Mr. Abbasi was last seen by me 07/2013. At that time he was d oing relatively well. It was recommended that he participate in occupational physical thera py for improved function, as well as improved lower extremity strength and to reduce risk o f osteoporosis by using standing frame. He has been doing physical therapy at the hospital. He was having muscle spasms in abdomen and lower extremities. He had increased dose of jolanta lofen. He has been taking this. He denies side effects. He indicates that muscle spasms hav e been much better controlled with increased dose of baclofen. He has neurogenic bladder. Adriana jones has been seen by urologist in [place]. He indicates they are planning to place a suprap ubic catheter. He indicates that on occasion he has episodes of foul-smelling urine. He den ies any signs of urinary tract infection at this time. Denies any fever, chills, increased muscle spasms, changes in blood pressure, etc. He denies any episodes of autonomic dysfunct ion. In regard to bowel program, he continues to use stimulation and suppository. He denies any accidents between planned bowel movements. Last time he was seen there was unstageable pressure caroline over buttocks bilaterally. He has been using pressure relief frequently. He indicates that the pressure wounds never opened up. He indicates that right side is completely resolved. Left side still does have some red ness and irritation, but skin has never opened. No wound has ever developed. No further iss ues. He continues to do frequent pressure relief. He has questions as to how long he needs to remain on DVT prophylaxis. Currently, he feels like he is doing well. Denies any side ef fects to current medications. ALLERGIES: BEE VENOM. CURRENT MEDICATIONS 1. Tylenol. 2. Albuterol. 3. Baclofen 20 mg 4 times per day. 4. Valium 5 mg 3 times per day. 5. Colace. 6. Senokot-S. 7. Marinol 5 mg 2 times daily. 8. Gabapentin 100 mg 3 times daily. 9. Midodrine 10 mg 3 times daily. 10. Prilosec 20 mg every morning. 11. Probiotic once daily. 12. Senna 8.6 mg twice daily. 13. Coumadin 7.5 mg daily. REVIEW OF SYSTEMS: Mr. Abbasi denies nausea, vomiting, diarrhea, constipation, fever, chi lls, shortness of breath, chest pain, denies any skin breakdown or rash. All other review o f systems negative. PHYSICAL EXAMINATION VITAL SIGNS: Heart rate 66, respiratory rate 18, blood pressure 88/54, weight 200 pounds, height 5 feet 10 inches. GENERAL: No acute distress. Alert and oriented to person, place, time and situation. HEENT : Extraocular muscles intact. Sclerae are clear. Pupils equal, reactive to light and accomm odation. NECK: Normal range of motion. Spurling's test negative. HEART: Regular rate and rhythm. No murmurs, no gallops. LUNGS: Clear to auscultation. No wheezing, no crackles. ABDOMEN: Nontender. Positive for bowel sounds. Nondistended. EXTREMITIES: Exam reveals no clubbing, cyanosis, or edema. No evidence of DVT. Atrophy of upper extremity muscles consis tent with cervical spinal cord injury. Lower extremity spasticity exam demonstrates decreas ed tone and muscle spasms of lower extremities, 2/10 on modified Fabiola scale. DATABASE: No new imaging or laboratory data available for review at this time. IMPRESSION 1. C6 DYLAN B INCOMPLETE QUADRIPLEGIA, ICD-9 344.04. 2. UNSTAGEABLE CLOSED LEFT BUTTOCK PRESSURE ULCER, ICD-9 707.05. 3. NEUROGENIC BOWEL, ICD-9 564.81. 4. NEUROGENIC BLADDER, ICD-9 596.54. 5. ABDOMINAL SPASMS, ICD-9 789.00. 6. LOWER EXTREMITY MUSCLE SPASMS, ICD-9 728.85. 7. DEEP VENOUS THROMBOSIS PROPHYLAXIS, ICD-9 V58.61. PLAN: Mr. Abbasi is doing well in regard to his quadriplegia and strength. He is improvin g. He should continue occupational therapy and physical therapy until progress plateaus. U ltimately, he will need home standing frame to be used on his own on a routine basis to redu ce risk of lifetime development of osteoporosis. He should be on calcium with vitamin D [place] pplementation to minimize bone loss. In regard to neurogenic bowel, he should continue curr ent bowel program with stimulation and suppository. In regard to bladder program, he has pl anned surgery for suprapubic catheter in about a month. He is advised to only treat urinary tract infections if they are symptomatic. We discussed that foul-smelling urine is not a re ason to treat bladder infection with antibiotics. Discussed that if he develops resistant b acteria, treating bladder infections can be much more challenging. In regard to abdominal s pasm and lower extremity spasms, he will continue Baclofen 20 mg 4 times per day. In regard to DVT prophylaxis, his injury was 01/2013. We discussed that DVT prophylaxis is usually c ontinued for 1 year and then a trial of discontinuation may be considered. We will likely d gracielauss discontinuing DVT prophylaxis 02/2014. Thank you for allowing me to be involved in the care of your patient. If you have any quest ions regarding the care of Mr. Abbasi please do not hesitate to call. In regard to his sk in, he was encouraged to continue pressure relief on a routine basis. Left buttock pressure ulcer nearly fully resolved. Chris Priest Jr, MD JACKIE / JWEdilberto JOB #: [id number] cc: JANIE Perez-C documented in this encounter Plan of Treatment [...] [place] | | | | | | [address] | | | | | | | | +--------+ + + + + + +------+--------+ + + | Name | Type | Priori | Associated Diagnoses | Order Schedule | | | | ty | | | + +------+--------+ + + | Comprehensive | Lab | Routin | Quadriplegia, | Expected: | | Metabolic Panel | | e | C5-C7 incomplete | 10/29/2013, Expires: | | | | | (HCC) | 10/29/2014 | + +------+--------+ + + documented as of this encounter Visit Diagnoses + + | Diagnosis | + + | Quadriplegia, C5-C7 incomplete (HCC) - Primary Quadriplegia, C5-C7, incomplete | + + | Pressure ulcer, buttock, left, unstageable | + + | Neurogenic bowel | + + | Neurogenic bladder Neurogenic bladder, NOS | + + | Abdominal spasms Abdominal pain, unspecified site | + + | Muscle spasm of both lower legs Spasm of muscle | + + | DVT prophylaxis Encounter for long-term (current) use of anticoagulants | + + documented in this encounter
--- OUTSIDE RECORDS SUMMARY | ~2019-11-15 | XMS | Encounter Summary ---
Demographics + + + | Address | [address] | | | [place] [address] | + + + | Home Phone [...] Team Providers + +------+ + | Care Relations Specialist Name | Role | Phone | [...] + + | 11/24/ | Emergency | [facility] | [place], | Fibula fracture, | | 2014 | | MED CTR EMERGENCY | Eliu Garcia MD [address] | left, closed, | | | | CENTER [address] | [address] [facility] | initial encounter | | | | [place] | [place] [address] | (Primary Dx); Left | | | | [address] | [phone] | knee sprain, initial | | | | [phone] | | encounter | +--------+ + + [...] + documented in this encounter Discharge Instructions Eliu Rosas MD - 11/24/2014Use a walking boot [...] 0 | 03/22/19 | | | (MYCOSTATIN) [id number] | | | | 14 | | [...] might be differe nt from the original. [facility] Abbasi II Emergency Department Encounter Note [address] [place] [id number] PCP:Edwar Wilhelm PA-C [phone] CHIEF COMPLAINT Chief [...] up with Edwar Wilhelm PA-C. Specialty: Physician Pants Busheler-Medical Contact information: [address] [place] [address] Eliu Jacob MD 11/24/14 1230 do cumented [...] [place] | | | | | | [address] | | | | | | | [...]
--- OUTSIDE RECORDS SUMMARY | ~2019-11-15 | XMS | Encounter Summary ---
Demographics + + + | Address | [address] | | | [place] [address] | + + + | Home Phone [...] Author + + + | Author | [facility] | | | and [place] | + + + | Organization | [facility] | | | and [...] Team Providers + +------+ + | Care Facilities Custodian Name | Role | Phone | + [...] + | 10/22/ | Home Care | [facility] | Liane Nolasco, PT | CASE COMMUNICATION | | 2020 | Visit | CLIFF [address] | | | | | | [address] [place] | | | | | | [address] | | | | | | [phone] | | | +--------+ + + + [...] [place] | | | | | | [address] | | | | | | | | +--------+ + + + + documented as of this encounter Visit Diagnoses Not on filedocumented in this encounter"
--- OUTSIDE RECORDS SUMMARY | ~2019-11-15 | XMS | Encounter Summary ---
Demographics + + + | Address | [address] | | | [place] [address] | + + + | Home Phone [...] Author + + + | Author | [facility] | | | and [place] | + + + | Organization | [facility] | | | [...] Team Providers + +------+ + | Care Mounter Automatic Name | Role | Phone | + [...] | | | | | Procedures | [address] | [address] | | | | | 10/21 PEND | [place], | [address] | | | | | [place] | [place] [address] | [place] | | | | | | Phone: | [phone] | | | | | | [phone] | Phone: | | | | | | Fax: | [phone] | | | | | | [phone] | Fax: | | | | | | | [phone] | +--------+ + + + + + Encounter Details +--------+---------+ + + + | Date | Type | Department | Care Team | Description | +--------+---------+ + + + | 12/08/ | Office | [facility] | Jonathan Avendaño MD | Dysphagia (Primary | | 2015 | Visit | GASTROENTEROLOGY | [address] | Dx); RUQ pain; | | | | [address] [facility] | [place], [place] | Constipation, | | | | [address] [place], [place] | [address] | unspecified | | | | [address] | [phone] | constipation type | | | | [phone] | | | +--------+---------+ + + + [...] MD - 12/08/2014 3:50 PM PDT [facility]Y [address] [facility] [address] OFFICE CONSULTATION JONATHAN AVENDAÑO MD Patient: MARTINEZ ABBASI Admitting: MR #: [id number] LOC: PT TYPE: Adm Date: 12/08/2014 : [...] Transcribed on 12/09/2014 06:55:04 by danilo job# [id number] Confirmation #: [id number] cc: EDWAR GREENFIELD PAC documented in this [...] | | | | | [place] | | | | | | [address] | | | | | | | [...]
--- OUTSIDE RECORDS SUMMARY | ~2019-11-15 | XMS | Encounter Summary ---
Demographics + + + | Address | [address] | | | [place] [address] | + + + | Home Phone [...] Team Providers + +------+ + | Care Elevated Motorman Name | Role | Phone | + [...] | | | | [place]astro[place] | | [place] [address] | | | | | geal reflux | | Phone: | | | | | disease | | [phone] | | | | | without | | Fax: | | | | | esophagitis | | [phone] | | | | | Abdominal | [...] | | | | | | | [place] | | | | | | | [...] | | | | | [address] | [address] [facility] | | | | | [place] | [place] [address] | | | | | [address] | [phone] | | | | | [phone] | | | +--------+ + + + [...] Ochoa, | User Epic | | | patient centered care specialist and check twice | RN | | [...] from the original. ANESTHESIA POSTANESTHESIA EVALUATION [facility] 44 y[facility] male 1970 [id number] Procedure(s) EGD - PT IS PARAPLEGIC (N/A [...] signed by Blane Tompkins MD 12/19/2014 12:09 [facility] nesthesia Prepr ocedure Evaluation - Blane Tompkins MD - 12/16/2014 11:17 AM PDTFormatting of this no te might be different from the original. ANESTHESIA PREANESTHESIA EVALUATION [facility] 44 y.[facility] male 1970 [id number] Procedure(s): EGD - PT IS PARAPLEGIC (N/A Mouth) Medical history, anesthesia, medications, allergy, NPO status verified histories reviewed. ECG reviewed. Labs reviewed. Review of Systems / Med History Anesthesia History No anesthesia complications. Cardiovascular (+) hypertension.(-) CAD, past [place], CHF. Exercise tolerance <4 METS. Pulmonary Negative [...] [place]ST[place] | | | | | | [address] | | | | | | | [...]
--- OUTSIDE RECORDS SUMMARY | ~2019-11-15 | XMS | Encounter Summary ---
Demographics + + + | Address | [address] | | | [place] [address] | + + + | Home Phone [...] Author + + + | Author | [facility] | | | and [place] | + + + | Organization | [facility] | [...] Team Providers + +------+ + | Care Photoengraving Sketch Maker Name | Role | Phone | + [...] + + | 11/11/ | Telephone | [facility] | Chris Priest, | Forms | | 2014 | | PHYSIATRY [address] | [address] | | | | | [address] | [place] | | | | | [place] | [address] | | | | | [address] | | | | | | [phone] | | | +--------+ + + + [...] [place] | | | | | | [address] | | | | | | | | +--------+ + + + + documented as of this encounter Visit Diagnoses Not on filedocumented in this encounter
--- OUTSIDE RECORDS SUMMARY | ~2019-11-15 | XMS | Encounter Summary ---
Demographics + + + | Address | [address] | | | [place] [address] | + + + | Home Phone [...] Author | [facility] | | | and [place] | + + + | Organization | [facility] | | [...] Team Providers + +------+ + | Care Regulatory Affairs Portfolio Leader Name | Role | Phone | + [...] | | | | , [address] | [address] | [place], | | | | | complete | [place], | [place] [address] | | | | | (HCC) | [place] [address] | Phone: | | | | | Neurogenic | Phone: | [phone] | | | | | bladder | [phone] | Fax: | | | | | | Fax: | [phone] | | | | | | [phone] | | + + + + + [...] St | | | | n | ([facility]) | UPDATE | [place], | | | | | | | [place] [address] | | | | | | | Phone: | | | | | | | [phone] | | | | | | | Fax: | | | | | | | [phone] | +--------+--------+ + + + + Encounter Details +--------+---------+ + + + | Date | Type | Department | Care Team | Description | +--------+---------+ + + + | 07/17/ | Office | [facility] | Chris Priest, | Quadriplegia, C5-C7 | | 2013 | Visit | PHYSIATRY [address] | MD [address] | complete (HCC) | | | | [address] | [place] | (Primary Dx); | | | | [place] | [phone] | Abdominal spasms; | | | | [id number] | | Muscle spasm of both | | | | [phone] | | lower legs; | | | [...] office note has been dictated. Job ID# [id number] signed by Chris Priest MD at 07/17/2013 2:50 PM Lauren Guajardo RN - 07/17/2013 11:46 AM PDTPatient states he is hear for a consult regarding care of his spine. States pain to neck, 05/06. Electronically signed by Lauren Troy RN at 4 2:50 PM Chris Ware MD - 07/17/2013 12:00 AM [facility] [address] [place] [address] [place] [address] FAX: [phone] OFFICE VISIT PRIMARY CARE PROVIDER: Bridger Wilhelm [...] as a result. He was taken to [facility] and then transported to [facility], where he had surgical reduction for a C5-6 spinal cord injury and dislocation of bones. Sub sequently, he participated in acute inpatient rehabilitation at [facility]. He was discharged from [facility] at the end of February [...] sepsis. He was hospitalized at [facility] in the ICU for autonomic dysreflexia [...] Stephanie lift for transfers. He uses [employer] [facility] wheelchair, which he is able to control. [...] trength bilaterally. Trace thumb movement and hand folder seamer strength bilaterally. Hand closure is with tenodesis. [...] reli ef while in bed, rolling from [id number], or to new position. In regard to [...] etc. Greater than an hour was spent [id number] today with Mr. Abbasi, over half of which was spent formulating and discussing his medical treatment plan. Thank you for allowing me to be involved in the care of your the patient. If you have any questions regarding the care of Mr. Abbasi, please do not hesitate to call. Chris Priest Jr, MD JACKIE / RS JOB #: [id number] cc: JANIE Byrnes-C P DTdocumented in this encounter Miscellaneous Notes Miscellaneous - ONBASE SCAN [facility] - 07/17/2013 12:00 AM PDT iscellaneous - ONBASE SCAN [facility] - 07/09/2013 12:00 AM PDTEle ctronically signed by jett [facility] at 07/23/2013 3:27 PM PDTdocumented in this [...] [place] | | | | | | [id number] | | | | | | | | +--------+ + + + + + + +--------+ + + | Name | Type | Priori | Associated Diagnoses | Order Schedule | | | | ty | | | + + +--------+ + + | * [facility] Urology | Outpatient | Routin | Quadriplegia, | Ordered: 07/17/2013 | | - AMB Referral | Referral | e | C5-C7 complete ([facility]) | | | | | | Neurogenic bladder | | + + +--------+ + + documented as of this encounter Visit Diagnoses + + | Diagnosis | + + | Quadriplegia, C5-C7 complete ([facility]) - Primary Quadriplegia, C5-C7, complete | + [...]
--- OUTSIDE RECORDS SUMMARY | ~2019-11-15 | XMS | Encounter Summary ---
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 Name | Role | Phone | + [...] | | Urinary | | [address] | | | | | tract | | [place], | | | | | infection | | [place] | | | | | Fever | | [address] | | | | | Hematuria, | | Phone: | | | | | gross | | [phone] | | | | | Quadriplegia | | Fax: | | | | | following | | [phone] | | | | | spinal cord [...] + + | 07/05/ | Hospital | [facility] | Herman [place], | Hematuria, gross | | 2013 - | Encounter | MED [facility] | [address] | (Primary Dx); | | | | [address] | [facility] [place] | 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[place] [address] | [place] [address] | coagulopathy, | | 2013 | | [phone] | [phone] | initial encounter; | | | | | | Fever; Urinary tract | | | | | Owen Gauthier, | infection; | | | | | [address] | Quadriplegia | | | | | [place], [place] | 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 Contact information: Margaux Alexandre [facility] [address] Discharge Medication List as of 07/09/2013 13:54 [...] or Severe Contraindications. Consult references such as Affaredelgiorno for f urther information. Studies With Pending Results: None Greater than 30 minutes were spent on discharge and coordination of post-hospital care. Electronically signed by: Winston Ascencio MD, 07/09/2013 23:29 [facility] documented in this encounter Discharge Instructions Instructions [...] 0 | 03/22/19 | | | (MYCOSTATIN) [id number] | | | | 14 | | [...] PDT . HOSPITALIST PROGRESS NOTE on 07/08/2013 [facility] Pt. Name/Age/: Martinez Abbasi 42 y.o. 1970 Med. Record Number: [id number] Primary Care Physician: Edwar Wilhelm Date of [...] with Dr. Salgado. Much better. Transfer to [facility] 07/08. Seems to be E. Coli. Sensitivities [...] -- No results found for this basename: PHART:3,PO2ART:3,JKK0ZDT:3,O4ACBSDX:3,BEART:[address] 168 hours No results found for this basename: CKTOTAL:3,TROPONINI:3,TROPONINT:3,CKMBINDEX:3,BNP:3 in the last 168 hours Lab 07/08/13 0449 07/07/13 0412 07/06/13 1525 APTT -- -- -- INR 1.11* 1.76* 1.78* PTT -- -- -- DDIMER -- -- -- No results found for this basename: POCGLU Micro results last 72hrs: Microbiology Results (72 hrs) Procedure Component Value Units Date/Time Culture, MRSA [[id number]] Collected:07/06/13 0146 Order Status:Completed Lab Status:Final result Updated:07/07/13 1036 Specimen Information:Respiratory / Nares Culture Negative for MRSA by chromogenic agar method Culture, Urine [[id number]] Collected:07/05/13 211 Order Status:Completed Lab Status:Final result Updated:07/07/13 1203 Specimen Information:Urine Culture Result: <10,000 CFU/ml Mixed reinier (multiple morphologies present) Comment: Suggests contamination with urogenital or skin reinier. Culture, Blood [[id number]] Collected:07/05/132057 Order Status:Completed Lab Status:Final result Updated:07/07/13 1010 Specimen Information:Blood / Peripheral Blood Culture Gram Negative Rods Narrative: 4 of 4 bottles positive for gram negative bacilli. Please see [id number] for ID and sensitivity. Culture, Blood [[id number]] Collected:07/05/132057 Order Status:Completed Lab Status:Final result Updated:07/08/13923 [...] 0601 acetaminophen, albuterol, ondansetron DVT Prophylaxis Coumadin [facility] Documentation I expect this patient will be hospitalized for greater than 2-midnights and expect the post -hospital plan to be discharge to home or to an adult foster home. Electronically signed by: Chase Russ MD, 07/08/2013 9:55 [facility] Portions of this chart may have been created with[employer] voice recognition software. Occas ional wrong-word or [...] DVT prevention. Starting lower than patient's ho ri regimen because he was supratherapeutic when admitted to the hospital. 2. Medication profile reviewed for potential drug-drug interactions 3. Labs in am: Hgb, Hct, INR 4. Pharmacist to follow daily Per P&T-approved Electronically signed by: Noelle Miranda, PHARMEl 07/07/2013 8:37 Chase Wu MD - 07/07/2013 8:10 AM PDT . HOSPITALIST PROGRESS NOTE on 07/07/2013 [facility] Pt. Name/Age/: Martinez Abbasi 42 y.o. 1970 Med. Record Number: [id number] Primary Care Physician: Edwar Wilhelm Date of [...] -- No results found for this basename: PHART:3,PO2ART:3,SZS2DTC:3,M0ATAIFP:3,BEART:[address] 168 hours No results found for this basename: CKTOTAL:3,TROPONINI:3,TROPONINT:3,CKMBINDEX:3,BNP:3 in the last 168 hours Lab 07/07/13 0412 07/06/13 1525 07/06/13 0439 APTT -- -- -- INR 1.76* 1.78* 2.30* PTT -- -- -- DDIMER -- -- -- No results found for this basename: POCGLU Micro results last 72hrs: Microbiology Results (72 hrs) Procedure Component Value Units Date/Time Culture, MRSA [[id number]] Collected:07/06/13145 Order Status:Sent Lab Status:In process Updated:07/06/13145 Specimen Information:Respiratory / Nares Culture, Urine [[id number]] Collected:07/05/132112 Order Status:Completed Lab Status:Preliminary result Updated:07/06/13844 Specimen Information:Urine Culture No growth to date Culture, Blood [[id number]] Collected:07/05/132057 Order Status:Completed Lab Status:Preliminary result Updated:07/06/132126 Specimen Information:Blood / Peripheral Blood Gram Stain Result Gram negative rods Comment: 3 (aer) of 4 bottles positive to date Gram Stain Result Gram negative rods Comment: 4 of 4 bottles positive 07-06-132099 Culture, Blood [[id number]] Collected:07/05/132057 Order Status:Completed Lab Status:Preliminary result Updated:07/06/13 [...] signed by: Chase Russ MD, 07/07/2013 8:10 [facility] Portions of this chart may have been created with[employer] voice recognition software. Occas ional wrong-word or sound-alike substitutions may have occurred due to the inherent li mitations of voice recognition software. Please read the chart carefully and recognize, in g context, where these substitutions have occurred. Neolle Owens PharmD - 07/06/2013 10:55 AM PDTRenal Dosing of Zosyn Zosyn 3.375g q6h is appropriate for this patients CrCl ~48. Will continue to monitor renal function and adjust dose if needed. Thank you Chase Gamboa MD - 07/06/2013 8:17 AM PDT HOSPITALIST PROGRESS NOTE on 07/06/2013 [facility] Pt. Name/Age/: Martinez Abbasi 42 y.o. 1970 Med. Record Number: [id number] Primary Care Physician: Edwar Wilhelm Date of [...] no mass, no rebou nd, no guarding CASINO BEVERAGE SERVER: Alert, oriented x 3. Diagnostic Studies: Radiology: [...] -- No results found for this basename: PHART:3,PO2ART:3,XOQ2UGV:3,L7LPSSPU:3,BEART:[address] 168 hours No results found for this basename: CKTOTAL:3,TROPONINI:3,TROPONINT:3,CKMBINDEX:3,BNP:3 in the last 168 hours Lab 07/06/139 07/05/132057 APTT -- -- INR 2.30* 3.28* PTT -- -- DDIMER -- -- No results found for this basename: POCGLU Micro results last 72hrs: Microbiology Results (72 hrs) Procedure Component Value Units Date/Time Culture, MRSA [[id number]] Collected:07/06/13145 Order Status:Sent Lab Status:In process Updated:07/06/13145 Specimen Information:Respiratory / Nares Culture, Urine [[id number]] Collected:07/05/132112 Order Status:Sent Lab Status:In process Updated:07/05/132143 Specimen Information:Urine Culture, Blood [[id number]] Collected:07/05/132057 Order Status:Sent Lab Status:In process Updated:07/05/132116 Specimen Information:Blood / Peripheral Blood Culture, Blood [[id number]] Collected:07/05/132057 Order Status:Sent Lab Status:In process Updated:07/05/132116 [...] albuterol, ondansetron DVT Prophylaxis Coumadin at home. [facility] Documentation I expect this patient will be hospitalized for greater than 2-midnights and expect the post -hospital plan to be discharge to home or to an adult foster home. Electronically signed by: Chase Russ MD, 07/06/2013 8:17 [facility] Portions of this chart may have been created with[employer] voice recognition software. Occas ional wrong-word or sound-alike substitutions may have occurred due to the inherent li mitations of voice recognition software. Please read the chart carefully and recognize, usin g context, where these substitutions have occurred. documented in this encounter H&P Notes Owen Gauthier MD - 07/05/2013 10:28 PM PDT [facility]YSICAL Pt. Name/Age/: [...] urine output after Hancock catheter insertion at [facility] yesterday. Appa rently he has been on [...] Gas: No results found for this basename: PHART:3,PO2ART:3,HEU9TKZ:3,R9TCDYBK:3,B EART:3 in the last 168 hours Cardiac Enzymes: No results found for this basename: CKTOTAL:3,TROPONINI:3,TROPONINT:3,CKMB INDEX:3,BNP:3 in the last 168 hours Coags: Lab 07/05/132057 APTT -- INR 3.28* PTT -- DDIMER -- Blood Sugars Checks: No results found for this basename: POCGLU Micro results last 72hrs: Microbiology Results (72 hrs) Procedure Component Value Units Date/Time Culture, Urine [[id number]] Collected:07/05/132112 Order Status:Sent Lab Status:In process Updated:07/05/132143 Specimen Information:Urine Culture, Blood [[id number]] Collected:07/05/132057 Order Status:Sent Lab Status:In process Updated:07/05/132116 Specimen Information:Blood / Peripheral Blood Culture, Blood [[id number]] Collected:07/05/132057 Order Status:Sent Lab Status:In process Updated:07/05/132116 [...] signed by: Marvin Gauthier MD 07/05/2013 22:28 [facility] Portions of this chart may have been created with AWAK voice recognition software. Occasi onal wrong-word or sound-alike substitutions may have occurred due to the inherent beltran itations of voice recognition software. Please read the chart carefully and recognize, using context, where these substitutions have occurred documented in this encounter Consult Notes Dane Salgado MD - 07/06/2013 8:27 AM PDT [facility] UROLOGY CONSULTATION NOTE Primary Care Physician: Edwar Wilhelm PATIENT NAME: Martinez Abbasi : 1970 TODAY'S DATE: 07/06/2013 IMPRESSION: 1. Malposition of urethral catheter 2. Hancock balloon laceration of urethra Present on Admission: Septic shock ([facility]) Acute renal failure (ARF) ([facility]) UTI (lower urinary tract infection) Obstructive uropathy [...] by: Dane Salgado MD, 07/06/2013 8:27 [facility] documented in this en counter ED Notes Rosa Giraldo RN - 07/06/2013 12:39 AM PDTObtained blood consent from patient's , Sofiya Mcdonough via telephone. Verified with second RN. Herman Guajardo MD - 07/05/2013 9:22 PM PDT [facility] Emergency Department Encounter Note [address] [place] [id number] PCP:Edwar Wilhelm [phone] CHIEF COMPLAINT Chief Complaint [...] ey catheter he had in place from [facility] the bulb inflated in his urethra. We [...] at 0 07/05/2013 8:24 PM Stephanie Bah, Tentering Machine Feeder - 07/05/2013 8:20 PM PDTLarge blood clot removed from under foreskin during catheter insertion. Pt. Tolerated insertion well. C ontinues to have bleeding around catheter. Catheter bag draining bright red. documented in this enco unter Miscellaneous Notes Plan of Care - [facility] - 07/18/2013 12:00 AM PDT iscellaneous - [facility] - 07/18/2013 12:00 AM PDTElec tronically signed by Maria Luisa Nguyễn at 07/18/2013 4:08 PM PDTMiscellaneous - [facility] - 07/18/2013 12:00 AM PDT i scellaneous - [facility] - 07/18/2013 12:00 AM PDT lan of [...] 80. Supi ne: 144/87, hr 76. Mr Abbais did not demonstrate any orthostatic hypotension at [...] home. lan of Care - David Lentz, RAILROAD INSPECTOR - 07/09/2013 4:33 AM PDTProblem: General Plan [...] not needed today. lan of Princess Boyle Teacher Counselor-Clinical - 07/08/2013 4:41 PM PDTProblem: General Plan of Care (Adul t, Obstetrics) Goal: Care Plan Shift Summary & Review . Met with patient regarding his potential needs upon discharge. Patient states that he has b een on Warfarin 7.5 mg already and is being checked monthly for his INR. When given the [facility] ce for potential HH referral for following up with his sepsis, patient chose [facility], since he did not want to go back to [facility] for this issue. Does have [...] will try tomorrow am to see if [facility] HH is contracted with them.Electronically signed by: Princess Maloney, CHASSIS ENGINEER 07/08/2013 16:42 la n of Constantino - [...] man and very positive. He lives in [place] with SO. She has been supportive but was not present at the time of my vi sit. Martinez stated no needs, but expressed appreciation for the visit. Will see the patient as requested. If there are any other spiritual care issues that arise, please contact senior abap developer. Olive Hope RN - 07/07/2013 8:04 AM [...] 6:41 PM PDTPt had cath placed at [facility] yesterday. He has had blood in his [...] | Office | Physical Medicine | Chris Priets, | | | 2019 | Visit | and Rehabilitation | MD Margaux Alexandre | | | | | | [place] | | | | | | [address] | | | | | | | [...] [address] | [place] | [phone] | | [facility] | | [address] | | | - LABORATORY | | | | + + + + + | [facility] | [address] | [place] | | | [facility] | | [address], [facility] | | | - LABORATORY [...] mL/min/1.73m2 | [facility] | | | [place] | RATE,ESTIMATED | | MEDICAL | | | | mL/min/1.23w9Niaa than | | CENTER - | | [...] + | [facility] | [address] | [place], [place] | [phone] | | [facility] | | [address] | | | - LABORATORY | | | | + + + + + | [facility] | [address] | [place], [place] | | | [facility] | | [address] [place] [address] | | | - LABORATORY | | [...] + | [facility] | [address] | [place] | [phone] | | [facility] | | [address] | | | - LABORATORY | | | | + + + + + | [facility] | [address] | [place] | | | [facility] | | [address] | | | - LABORATORY | [...] [address] | [place] | [phone] | | [facility] | | [address] | | | - LABORATORY | | | | + + + + + | [facility] | [address] | [place] | | | [facility] | | [address], [facility] | | | - LABORATORY [...] mL/min/1.73m2 | [facility] | | | [place] | RATE,ESTIMATED | | MEDICAL | | | | mL/min/1.85y7Vtuz than | | CENTER - | | [...] + | [facility] | [address] | [place], [place] | [phone] | | [facility] | | [address] | | | - LABORATORY | | | | + + + + + | [facility] | [address] | [place], [place] | | | [facility] | | [address], [facility] | | | - LABORATORY [...] [address] | [place] | [phone] | | [facility] | | [address] | | | - LABORATORY | | | | + + + + + | [facility] | [address] | [place] | | | [facility] | | [address], [facility] | | | - LABORATORY [...] mL/min/1.73m2 | [facility] | | | [place] | RATE,ESTIMATED | | MEDICAL | | | | mL/min/1.53u0Wosn than | | CENTER - | | [...] + | [facility] | [address] | [place], [place] | [phone] | | [facility] | | [address] | | | - LABORATORY | | | | + + + + + | [facility] | [address] | [place], [place] | | | [facility] | | [id number] [place] [address] | | | - LABORATORY | | [...] | | Cells | | M/uL | [facility] | | | | | | MEDICAL | | | | | | CENTER - | | | | | | LABORATORY | | + + + + + + | Hemoglobin | 8.3 (L) | 13.5 - 18.0 | [facility] | | | | | g/dL | [facility] | | | | | | [...] [address] | [place] | [phone] | | [facility] | | [address] | | | - LABORATORY | | | | + + + + + | [facility] | [address] | [place] | | | [facility] | | [address], [facility] | | | - LABORATORY [...] [address] | [place] | [phone] | | [facility] | | [address] | | | - LABORATORY | | | | + + + + + | [facility] | [address] | [place] | | | [facility] | | [address], [facility] | | | - LABORATORY [...] + + + | UNIT # | [id number] | | [facility] | | | | [...] ST. | [address] | [place], [place] | | | [facility] | | [address] | | | - BLOOD BANK | [...] + + + | UNIT # | [id number] | | [facility] | | | | [...] St | [place] | | | [facility] | | [address] | | | - BLOOD BANK | [...] + + + | UNIT # | [id number] | | [facility] | | | | [...] + | [facility] | [address] | [place] | | | [facility] | | [address] | | | - BLOOD BANK | [...] + + + | UNIT # | [id number] | | [facility] | | | | [...] [address] | [place] | | | [facility] | | [address] | | | - BLOOD BANK | [...] | | | | | | [facility] | | | | [...] + | [facility] | [address] | [place], [place] | [phone] | | [facility] | | [address] | | | - LABORATORY | | | | + + + + + | [facility] | [address] | [place], [place] | | | [facility] | | [address] [place] [address] | | | - LABORATORY | | [...] | 0.80 | 0.60 - 1.30 | [facility] | | | | | mg/dL | [facility] | | | | | | MEDICAL | | | | | | CENTER - | | | | | | LABORATORY | | + + + + + + | eGFR, | >60Comment: GLOMERULAR | >=60 | [facility] | | | non- | FILTRATION | mL/min/1.73m2 | [facility] | | | [place]ic | RATE,ESTIMATED | | MEDICAL | | | | mL/min/1.29o3Ufko than | | CENTER - | | [...] + | [facility] | [address] | [place], [place] | [phone] | | [facility] | | [address] | | | - LABORATORY | | | | + + + + + | [facility] | [address] | [place], [place] | | | [facility] | | [address], [facility] | | | - LABORATORY [...] + | [facility] | [address] | [place] | [phone] | | [facility] | | [address] | | | - LABORATORY | | | | + + + + + | [facility] | [address] | [place] | | | [facility] | | [address] | | | - LABORATORY | [...] | + + + + + | [facility] | [address] | [place], [place] | [phone] | | [facility] | | [address] | | | - LABORATORY | | | | + + + + + | [facility] | [address] | [place], [place] | | | [facility] | | [address] | | | - LABORATORY | [...] [address] | [place] | [phone] | | [facility] | | [address] | | | - LABORATORY | | | | + + + + + | [facility] | [address] | [place] | | | [facility] | | [address] | | | - LABORATORY | [...] + + + + + | [facility] | [address] | [place], [place] | [phone] | | [facility] | | [address] | | | - LABORATORY | | | | + + + + + | [facility] | [address] | [place], [place] | | | [facility] | | [address], [facility] | | | - LABORATORY [...] - 1.030 | [facility] | | | [place], | | | [facility] | | [...] | n, Urine | | | [facility] | | | | | | MEDICAL [...] [address] | [place] | [phone] | | [facility] | | [address] | | | - LABORATORY | | | | + + + + + | [facility] | [address] | [place] | | | [facility] | | [address], [facility] | | | - LABORATORY [...] [address] | [place] | [phone] | | [facility] | | [address] | | | - LABORATORY | | | | + + + + + | [facility] | [address] | [place] | | | [facility] | | [address] | | | - LABORATORY | [...] + | [facility] | [address] | [place], [place] | [phone] | | [facility] | | [address] | | | - LABORATORY | | | | + + + + + | [facility] | [address] | [place], [place] | | | [facility] | | [address], [facility] | | | - LABORATORY [...] [address] | [place] | [phone] | | [facility] | | [address] | | | - LABORATORY | | | | + + + + + | [facility] | [address] | [place] | | | [facility] | | [address] | | | - LABORATORY | [...] mL/min/1.73m2 | [facility] | | | [place] | RATE,ESTIMATED | | MEDICAL | | | | mL/min/1.90c6Ecqd than | | CENTER - | | [...] (L) | 3.2 - 5.0 g/dL | [facility] | | | | | | ST. [...] + | [facility] | [address] | [place] | [phone] | | [facility] | | [address] | | | - LABORATORY | | | | + + + + + | [facility] | [address] | [place] | | | [facility] | | [address], [facility] | | | - LABORATORY [...] | chromogenic agar method | | [facility] | | | | | | MEDICAL [...] + | [facility] | [address] | [place], [place] | [phone] | | [facility] | | [address] | | | - LABORATORY | | | | + + + + + | [facility] | [address] | [place], [place] | | | [facility] | | [address] [place] [address] | | | - LABORATORY | | [...] + | [facility] | [address] | [place] | [phone] | | [facility] | | [address] | | | - LABORATORY | | | | + + + + + | [facility] | [address] | [place], [place] | | | [facility] | | [address], [facility] | | | - LABORATORY [...] + | [facility] | [address] | [place] | [phone] | | [facility] | | [address] | | | - LABORATORY | | | | + + + + + | [facility] | [address] | [place], [place] | | | [facility] | | [address], [facility] | | | - LABORATORY [...] | | | | | mmol/L | [facility] | | | | | | MEDICAL [...] + | [facility] | [address] | [place], [place] | [phone] | | [facility] | | [address] | | | - LABORATORY | | | | + + + + + | [facility] | [address] | [place], [place] | | | [facility] | | [address], [facility] | | | - LABORATORY [...] + | [facility] | [address] | [place], [place] | | | [facility] | | [address] | | | - BLOOD BANK | [...] + | MISCELLANEOUS LAB | | | [phone] | + +---------+ + + | MISCELANIOUS LAB | | | [phone] | + +---------+ + + Culture, Urine [...] + | [facility] | [address] | [place], [place] | [phone] | | [facility] | | [address] | | | - LABORATORY | | | | + + + + + | [facility] | [address] | [place] | | | [facility] | | [address] [place] [address] | | | - LABORATORY | | [...] - 1.030 | [facility] | | | [place], | | | [facility] | | [...] [address] | [place] | [phone] | | [facility] [facility] | | [address] | | | - LABORATORY | | | | + + + + + | [facility] | [address] | [place] | | | [facility] | | [address], [facility] | | | - LABORATORY [...] + | [facility] | [address] | [place], [place] | [phone] | | [facility] | | [address] | | | - LABORATORY | | | | + + + + + | [facility] | [address] | [place], [place] | | | [facility] | | [address] [place] [address] | | | - LABORATORY | | [...] [address] | [place] | [phone] | | [facility] | | [address] | | | - LABORATORY | | | | + + + + + | [facility] | [address] | [place] | | | [facility] | | [address], [facility] | | | - LABORATORY [...] bacilli. Please see | [facility] | | [id number] for ID and sensitivity. | [facility] | | | [facility] | | | - LABORATORY | + + + + + + + + | Performing | Address | City/State/Zipcode | Phone Number | | Organization | | | | + + + + + | [facility] | [address] | [place], [place] | [phone] | | [facility] | | [address] | | | - LABORATORY | | | | + + + + + | [facility] | [address] | [place], [place] | | | [facility] | | [address], [facility] | | | - LABORATORY [...] eGFR, | 32 (L)Comment: | >=60 | [facility] | | | non- | GLOMERULAR FILTRATION | mL/min/1.73m2 | [facility] | | | Green[place]ic | RATE,ESTIMATED | | MEDICAL | | | | mL/min/1.08b3Qcky than | | CENTER - | | [...] | | | | | mg/dL | [facility] | | | | | | [...] [address] | [place] | [phone] | | [facility] | | [address] | | | - LABORATORY | | | | + + + + + | [facility] | [address] | [place] | | | [facility] | | [address], [facility] | | | - LABORATORY [...] + | [facility] | [address] | [place] | [phone] | | [facility] | | [address] | | | - LABORATORY | | | | + + + + + | [facility] | [address] | [place] | | | [facility] | | [address] | | | - LABORATORY | [...] + | [facility] | [address] | [place], [place] | [phone] | | [facility] | | [address] | | | - LABORATORY | | | | + + + + + | [facility] | [address] | [place], [place] | | | [facility] | | [address] | | | - LABORATORY | [...]
--- OUTSIDE RECORDS SUMMARY | ~2019-11-15 | XMS | Encounter Summary ---
Demographics + + + | Address | [address] | | | [place] [address] | + + + | Home Phone [...] Team Providers + +------+ + | Care Thresher Broomcorn Name | Role | Phone | + [...] + + | 04/17/ | Emergency | [facility] | [place], | Autonomic | | 2015 | | MED CTR EMERGENCY | Eliu Garcia MD [address] | dysreflexia (Primary | | | | CENTER [address] | [address] [place] | Dx); Complication, | | | | [place], [place] | [place] [address] | suprapubic catheter | | | | [address] | [phone] | obstruction, initial | | | | [phone] | | encounter (HCC) | +--------+ + [...] 0 | 03/22/19 | | | (MYCOSTATIN) [id number] | | | | 14 | | [...] might be differe nt from the original. [facility] Martinez Abbasi II Emergency Department Encounter Note [address] [place] [address] PCP:Edwar Wilhelm [phone] CHIEF COMPLAINT: Chief Complaint Patient presents with Hypertension autonomic dysreflexia ED Room: ED12/ED12 HPI Martinez Abbasi is a 43 y.o. male who presents to the Emergency Department by ambulance for evaluation of autonomic dysreflexia. The patient states that he was feeling at his usual [facility] this morning and had a [...] were reviewed along with EMS notes and custodial record s if applicable. (See chart for [...] 2. Complication, suprapubic catheter obstruction, initial encounter ([facility]) Follow-up Information Follow up with Edwar Wilhelm PA-C. Specialty: Physician P D Driver-Medical Why: As needed Contact information: [address] [place] [id number] Eliu Jacob MD 04/17/14 [address] [...] [place] | | | | | | [address] | | | | | | | | +--------+ + + + + documented as of this encounter Visit Diagnoses + + | Diagnosis | + + | Autonomic dysreflexia - Primary | + + | Complication, suprapubic catheter obstruction, initial encounter (HCC) | + + documented in this encounter"
--- OUTSIDE RECORDS SUMMARY | ~2019-11-15 | XMS | Encounter Summary ---
Demographics + + + | Address | [address] | | | [place] [address] | + + + | Home Phone [...] + + + | Author | [facility] | | | and [place] | + + + | Organization | [facility] | | [...] Team Providers + +------+ + | Care Nut Cracker Name | Role | Phone | + [...] + | 10/23/ | Home Care | [facility] | Kayla Dior, | SN REPEAT VISIT | | 2019 | Visit | CLIFF [address] | RN | | | | | [place] | | | | | | [address] | | | | | | [phone] | | | +--------+ + + + [...] + + + | Blood Pressure | 128/78 | 10/24/2019 11:37 AM | | | | | PDT | | + + + + + | Pulse | 70 | 10/24/2019 11:37 AM | | | | | PDT | | + + + + + | Temperature | 36.7 C (98 F) | 10/24/2019 11:37 AM | | | | | PDT | | + + + + + | Respiratory Rate | 14 | 10/24/2019 11:37 AM | | | | | PDT | | + + + + + | Oxygen Saturation | 98% | 10/24/2019 11:37 AM | | | | | PDT [...] Home Health - Kayla Dior RN - 10/24/2019 11:20 AM PDT1) Are you or anyone you [...] any question 1-6 is yes. Consult with data analysis manager prior to visit. S Pt with stage 3 pressure ulcer to R buttock B Pt lives at home with mother who is his CG and is paralyzed from arms down A. Wound care to Pressure ulcer provided. Pt tolerated well. R Continue POC doopal mented in this encounter Plan of Treatment [...] [place] | | | | | | [address] | | | | | | | | +--------+ + + + + documented as of this encounter Visit Diagnoses Not on filedocumented in this encounter Home Health Visit - Care Plan + + | Visit Type - SN - REPEAT VISIT | | Discipline - Care Home | + + + + +--------+--------+-------+ + | Problem | Description | Start | Status | Goals | Interventio | | | | Date | | | ns | + + +--------+--------+-------+ + | HH Other Wound | Upper right back | | | - | 1 problem | | Disciplines: | scab healed over | | Active | | | | Care Home | Left buttock hx of | [...] | | Active | | | | Care Home | | 020 | | | [...] | | | | n | | Care Home | | | | | scheduled/d | | | | | | | ocumented | | | | | | | in this | | | | | | | visit | + + +--------+--------+-------+ + | Wound Management | Right buttock | | | - | 1 problem | | Disciplines: | | | Active | | | | Care Home | | 020 | | | [...] care | Problem: Wound | | | Wound cleansed with | | Description: | Management | Comple | | wound cleanser, iodosorb | | Requesting wound | | caren | | applied to slough and | | care order to | | | | coverd with foam | | include clean with | | | | dressing. Pt tolerated | | wound cleanser, | | | [...]
--- OUTSIDE RECORDS SUMMARY | ~2019-11-15 | XMS | Encounter Summary ---
Demographics + + + | Address | [address] | | | [place] [address] | + + + | Home Phone [...] Team Providers + +------+ + | Care Rectangular Tank Cooper Name | Role | Phone | + [...] | | | | Procedures | [address] | [address] [place] | | | | | 10/21 PEND | [place], | [address] [place] | | | | | [place] | [place] [address] | [place], [place] | | | | | | Phone: | [address] | | | | | | [phone] | Phone: | | | | | | Fax: | [phone] | | | | | | [phone] | Fax: | | | | | | | [phone] | +--------+ + + + + + Reason for Visit + + + | Reason | Comments | + + + | Follow-up | | + + + Encounter Details +--------+---------+ + + + | Date | Type | Department | Care Team | Description | +--------+---------+ + + + | 10/20/ | Office | [facility] | Chris Aguirre, | Incomplete | | 2014 | Visit | PHYSIATRY [address] | MD [address] | quadriplegia at C6 | | | | [address] | [place] | level ([facility]) (Primary | | | | [place] | [address] | Dx); Epigastric | | | | [address] | | pain; Abdominal | | | | [phone] | | spasms; Spasm; | | | [...] MD - 10/20/2014 4:17 PM PDT [facility] [address] [address] OFFICE NOTE CHRIS AGUIRRE JR, MD Patient: MATRINEZ ABBASI Admitting: MR #: [id number] LOC: PT TYPE: Adm Date: 10/20/2014 : [...] bowel program. He reports that when h e has epigastric pain he will have diaphoresis [...] 16:17:43 Transcribed on 10/21/2014 05:27:[address] [facility] job# [id number] Confirmation #: [id number] cc: EDWAR [place] PAC [facility] Chris Garcia MD - 10/20/2014 4:05 PM PDTThis office note has been dictated. Job ID# [id number] signed by Chris Aguirre MD at 10/20/2014 [...] [place] | | | | | | [address] | | | | | | | [...]
--- OUTSIDE RECORDS SUMMARY | ~2019-11-15 | XMS | Encounter Summary ---
Demographics + + + | Address | [address] | | | [place] [address] | + + + | Home Phone | | + + + | Preferred Language | Unknown | + + + | Marital Status | Single | + + + | Latter-Day Affiliation | 1074 | + + + [...] Providers + +------+ + | Care General Practice Name | Role | Phone | + +------+ + PCP | Unavailable | + +------+ + Encounter Details +--------+ + + + + | Date | Type | Department | Care Team | Description | +--------+ + + + + | 11/09/ | Abstract | [place] [facility] | DATA MIGRATION PASTOR | | | 2011 | | Conversion Location | SR | | | | | [address] [facility] | | | | | | [place], [place] | | | | | | [address] | | | | | | [phone] | | | +--------+ + + + [...] + + + + | Weight | 106.6 kg (235 lb) | 11/19/2010 12:00 AM | | | | | PDT | | + + + + + | Height | 175.3 cm (5' 9") | 11/19/2010 12:00 AM | | | | | PDT | | + + + + + | Body Mass Index | 34.7 | 11/19/2010 12:00 AM | | | | | PDT | | + + + + + documented in this encounter Plan of Treatment [...] and Rehabilitation | MD Damico [address] | | | | | | [place] | | | | | | [address] | | | | | | | | +--------+ + + + + documented as of this encounter Visit Diagnoses Not on filedocumented in this encounter
--- OUTSIDE RECORDS SUMMARY | ~2019-11-15 | XMS | Encounter Summary ---
Demographics + + + | Address | [address] | | | [place] [address] | + + + | Home Phone [...] Team Providers + +------+ + | Care Technology Director Name | Role | Phone | [...] + + | 10/18/ | Telephone | [facility] | Diomedes Zarate, | Other | | 2016 | | PHYSIATRY [address] | [address] | | | | | [address] | [place] [address], | | | | | [place] | [place] [address] | | | | | [address] | [phone] | | | | | [phone] | | | +--------+ + + + [...] PM PDTReceived a call from Awilda at [facility]. She state s that they have still not received notes from patient's visit with Dr. Zarate on 09/15/16. Notes are not yet complete in Epic to route. Awilda would like a call back to discuss this a nd other questions that Martinez has about his plan of care. Awilda can be reached directly at [phone]. elephone Ekta jenkins - Stephanie Cadena - [...] [place] | | | | | | [address] | | | | | | | | +--------+ + + + + documented as of this encounter Visit Diagnoses Not on filedocumented in this encounter"
--- OUTSIDE RECORDS SUMMARY | ~2019-11-15 | XMS | Encounter Summary ---
Demographics + + + | Address | [address] | | | [place] [address] | + + + | Home Phone | | + + + | Preferred Language | Unknown | + + + | Marital Status | Single | + + + | Mandaen Affiliation | 1074 | + + + | Race | or | + + + | Ethnic Group | Not or | + + + Author + + + | Author | [facility] | | | and [place] | + + + | Organization | [facility] | | | and [...] Team Providers + +------+ + | Care Net Developer Software Engineer C Name | Role | Phone | + [...] | | | upper | [address] | [place], | | | | | quadrant | [place], [place] | [place] [address] | | | | | Dysphagia | [address] | Phone: | | | | | Gastroesopha | Phone: | [phone] | | | | | geal reflux | [phone] | Fax: | | | | | disease | Fax: | [phone] | | | | | without | [phone] | | | | | | esophagitis [...] | | | | | | | ([facility]) | | | | | | | [...] | | | | | | | [place] | | | | | | | ESOPHAGOGAST | | | | | | | RODUODENOSCO | | | | | | | PY TRANSORAL | | | | | | | DIAGNOSTIC | | | | | | | [place] EDG | | | | | | | TRANSORAL | | | | | | | BIOPSY | | | | | | | SINGLE/MULTI | | | | | | | PLE [place] | | | | | | | [...] Avendaño MD | Abdominal pain, | | 2014 | | GASTROENTEROLOGY | [address] | right upper quadrant | | | | [address] [place] | [place] | (Primary Dx); | | | | [address] [place] | [address] | Dysphagia; | | | | [address] | [phone] | Gastroesophageal | | | | [phone] | | reflux disease | | | [...] [place] | | | | | | [address] | | | | | | | [...] RUQ pain, rule out hepatomegaly COMPARISON:None | [facility] | | FINDINGS: Liver:The liver is of [...] + | [facility] | [address] | [place], [place] | [phone] | | [facility] | | [address] | | | - IMAGING | | [...]
--- OUTSIDE RECORDS SUMMARY | ~2019-11-15 | XMS | Encounter Summary ---
Demographics + + + | Address | [address] | | | [place] [address] | + + + | Home Phone | | + + + | Preferred Language | Unknown | + + + | Marital Status | Single | + + + | Bahai Affiliation | 1074 | + + + | Race | or | + + + | Ethnic Group | Not or | + + + Author + + + | Author | [facility] | | | and [place] | + + + | Organization | [facility] | | | [...] Team Providers + +------+ + | Care Radio Broadcaster Name | Role | Phone | + +------+ + | Edwar Wilhelm PA-C | PCP | | + +------+ + Encounter Details +--------+ + + + + | Date | Type | Department | Care Team | Description | +--------+ + + + + | 04/15/ | Documentati | [facility] | Della Ravi, | | | 2016 | on | MED CTR THERAPY PT | PT [address] | | | | | OP [address] | [place] | | | | | [place] | [address] | | | | | [address] | | | | | | [phone] | | | +--------+ + + + [...] Ren, PT - 04/15/2015 1:30 PM [facility] OP [address] [place] [address] Cancellation Date: 04/15/2015 Patient Information Patient Name: [...] [place] | | | | | | [address] | | | | | | | | +--------+ + + + + documented as of this encounter Visit Diagnoses Not on filedocumented in this encounter"
--- OUTSIDE RECORDS SUMMARY | ~2019-11-15 | XMS | Encounter Summary ---
Demographics + + + | Address | [address] | | | [place] [address] | + + + | Home Phone | | + + + | Preferred Language | Unknown | + + + | Marital Status | Single | + + + | Sabianism Affiliation | 1074 | + + + | Race | or | + + + | Ethnic Group | Not or | + + + Author + + + | Author | [facility] | | | and [place] | + + + | Organization | [facility] | | | [...] Team Providers + +------+ + | Care Senior Product Engineer Name | Role | Phone | [...] [place] | | | | | | [address] | | | | | | [phone] | | | +--------+ + + + [...] any question 1-6 is yes. Consult with traffic incident management manager prior to visit.Electronically s igned by [...] [place] | | | | | | [address] | | | | | | | | +--------+ + + + + documented as of this encounter Visit Diagnoses Not on filedocumented in this encounter Home Health Visit - Care Plan + + | Visit Type - SN - REPEAT VISIT | | Discipline - Halfway | + + + + +--------+--------+-------+ + | Problem | Description | Start | Status | Goals | Interventio | | | | Date | | | ns | + + +--------+--------+-------+ + | HH Other Wound | Upper right back | | | - | 1 problem | | Disciplines: | scab healed over | | Active | | | | Halfway | Left buttock hx of | 020 [...] 020 | | | interventio | | Halfway | | | | | n | [...] 020 | | | interventio | | Halfway | | | | | n | [...] | | Active | | | | Halfway | | 020 | | | interventio [...] 020 | | | interventio | | Halfway | | | | | n | [...] | | Active | | | | Halfway | | 020 | | | interventio [...] | | Instruct PT/CG in | | craen | | | | ways to prevent [...] to | | | | | | [facility] for counseling | | | | | [...]
--- OUTSIDE RECORDS SUMMARY | ~2019-11-15 | XMS | Encounter Summary ---
Demographics + + + | Address | [address] | | | [place] [address] | + + + | Home Phone | | + + + | Preferred Language | Unknown | + + + | Marital Status | Single | + + + | Oriental Orthodox Affiliation | 1074 | + + + | Race | or | + + + | Ethnic Group | Not or | + + + Author + + + | Author | [facility] | | | and [place] | + + + | Organization | [facility] | | [...] Team Providers + +------+ + | Care Charger Operator Name | Role | Phone | [...] | | | | at C5-6 | [address] | | | | | | level (HCC) | [place], | | | | | | Spasm | [place] [address] | | | | | | Medication | Phone: | | | | | | overuse | [phone] | | | | | | headache | Fax: | | | | | | | [phone] | | +--------+ + + + + [...] Rehabilitatio | quadriplegia | [address] | [address] | | | | n | at C5-6 | [address] | [place], | | | | | level (HCC) | [place], | [place] [address] | | | | | Impaired | [place] [address] | Phone: | | | | | mobility and | Phone: | [phone] | | | | | ADLs | [phone] | Fax: | | | | | Procedures | Fax: | [phone] | | | | | pt eval | [phone] | | +--------+ + + + + + Encounter Details +--------+---------+ + + + | Date | Type | Department | Care Team | Description | +--------+---------+ + + + | 01/13/ | Office | [facility] [place] | Chris Aguirre, | Incomplete | | 2014 | Visit | PHYSIATRY [address] | [address] | quadriplegia at C6 | | | | [address] | [place], [place] | level (HCC) (Primary | | | | [place], [place] | [address] | Dx); Spasm; | | | | [address] | | Neurogenic bowel; | | | | [phone] | | Neurogenic bladder; | | | [...] MD - 01/13/2015 6:31 PM PST [facility] PHYSIATRY [address] [facility] [address] OFFICE NOTE CHRIS AGUIRRE JR, MD Patient: MARTINEZ ABBASI Admitting: MR #: [id number] LOC: PT TYPE: Adm Date: 01/13/2015 : [...] has not yet followed up with the junior technical writer. [facility]. We discussed that by the report esophagus appeared nor mal, there may have been some erythematous gastric lining. We discussed that biopsies were taken, the biopsy results are not available for review. He is advised to follow up with mickey mccain junior technical writer. We discussed that he may have some [...] Gabapentin 300 mg 3 times per day. [place] 10/325 one tablet 4 times per day, [...] difficulty accessing the shower because of his Actifioe nt shower set up. PHYSICAL EXAMINATION: VITAL [...] He is advised to follow up with junior technical writer. Abdominal ultrasound of right upper quadrant, 12/22/2014 [...] return to outpatient physical therapy here at [facility], they can do some standing frame education for him. They can also review his mov ements and strength to see if there is any ways that he would benefit from continued therap y strengthening upper extremities to improve mobility and transfers. Neurogenic bladder, he will continue current management with suprapubic catheter. He has been asked to follow up with the junior technical writer regarding his complaint of epigastric p ain. [...] requesting a pain clinic consul tation at [facility] to evaluate the patient and determine whether [...] he will steven ve a consult at [facility] to determine whether or not [...] 01/13/2015 18:31:56 Transcribed on 01/14/2015 08:49:10 by [facility] job# [id number] Confirmation #: [id number] cc: EDWAR [place] PAC [facility], Chris Garcia MD - 01/13/2015 5:08 PM PSTThis office note has been dictated. Job ID# [id number] signed by Chris Aguirre MD at 01/13/2015 [...] [place] | | | | | | [address] | | | | | | | [...] Referral | | | level ([facility]) | | | | | | Impaired mobility | | | | | | and ADLs | | + + +--------+ + + | Ambulatory referral | Outpatient | Routin | Incomplete | Ordered: 01/13/2015 | | to Pain Clinic | Referral | e | quadriplegia at C6 | | | | | | level ([facility]) Spasm | | | | | | Medication overuse | | | | | | headache | | + + +--------+ + + documented as of this encounter Visit Diagnoses + + | Diagnosis | + + | Incomplete quadriplegia at C6 level ([facility]) - Primary Quadriplegia, C5-C7, incomplete | [...]
--- OUTSIDE RECORDS SUMMARY | ~2019-11-15 | XMS | Encounter Summary ---
Demographics + + + | Address | [address] | | | [place] [address] | + + + | Home Phone [...] Author + + + | Author | [facility] | | | and [place] | + + + | Organization | [facility] | | | [...] Team Providers + +------+ + | Care Associate Broker Name | Role | Phone | + [...] [place] | | | | | | [address] | | | | | | [phone] | | | +--------+ + + + [...] Appointment | Home Health Services | Kayla iDor, | | | 2019 | | | RN | | +--------+ + + + + | 12/24/ | Office | Physical Medicine | Chris Priest, | | | 2019 | Visit | and Rehabilitation | MD Margaux [address] | | | | | | [place] | | | | | | [address] | | | | | | | | +--------+ + + + + documented as of this encounter Visit Diagnoses Not on filedocumented in this encounter"
--- OUTSIDE RECORDS SUMMARY | ~2019-11-15 | XMS | Encounter Summary ---
Demographics + + + | Address | [address] | | | [place] [address] | + + + | Home Phone | | + + + | Preferred Language | Unknown | + + + | Marital Status | Single | + + + | Yazidi Affiliation | 1074 | + + + | Race | or | + + + | Ethnic Group | Not or | + + + Author + + + | Author | [facility] | | | and [place] | + + + | Organization | [facility] | | [...] Team Providers + +------+ + | Care Sheet Catcher Name | Role | Phone | + [...] + + | 08/29/ | Emergency | [facility] | Kamar Doty, | Urinary catheter | | 2013 | | MED CTR EMERGENCY | MD [address] | change required | | | | CENTER [address] | [place] | (Primary Dx) | | | | [place] | [address] | | | | | [address] | | | | | | [phone] | | | +--------+ + + + [...] following attachments cannot be sent through Care Everywhere.RAAD LYNCH ([place])documented in this encounter Medications at Time of [...] 0 | /20 | | | (MYCOSTATIN) [id number] | | | | 14 | | [...] Doty MD - 08/29/2013 3:01 PM PDT [id number] Kamar Doty MD 08/29/13 1501 Red Villalobos MD - 08/29/2013 3:01 PM PDT [address] [address] EMERGENCY ROOM REPORT KAMAR DOTY MD Patient: MARTINEZ ABBASI Admitting: MR #: [id number] LOC: PT TYPE: Adm Date: 08/29/2013 : [...] male in no apparent distress. VITAL SIGNS: Nicolaus rature 97.8, pulse 78, respirations 16, BP [...] Transcribed on 08/29/2013 21:17:29 by ms job# [id number] Confirmation #: [id number] signed by Kamar Doty MD at 08/30/2013 [...] | | | | | | [place] [facility] [place] | | | | | | [address] | | | | | | | | +--------+ + + + + documented as of this encounter Visit Diagnoses + + | Diagnosis | + + | Urinary catheter change required - Primary Fitting and adjustment of urinary device | + + documented in this encounter
--- OUTSIDE RECORDS SUMMARY | ~2019-11-15 | XMS | Encounter Summary ---
Demographics + + + | Address | [address] | | | [place] [address] | + + + | Home Phone [...] Team Providers + +------+ + | Care Services Advisor Name | Role | Phone | + +------+ + | Edwar Wilhelm PA-C | PCP | | + +------+ + Encounter Details +--------+ + + + + | Date | Type | Department | Care Team | Description | +--------+ + + + + | 12/31/ | Hospital | [facility] | Conversion | | | 2016 | Encounter | [facility] | Transaction, | | | | | CLINIC [address] | Provider Unknown | | | | | [address] [place], [place] | | | | | | [address] | (Fax) | | | | | [phone] | | | +--------+ + + + [...] 0 | 03/22/19 | | | (MYCOSTATIN) [id number] | | | | 14 | | [...] + + documented as of this encounter Procedure Notes Conversion Transaction, Provider Unknown - 01/01/2016 3:30 PM PDTFormatting of this note m ight be different from the original. Pre-Procedure Instructions by Loren Kumar RN at 01/01/16 7537 Author: Loren Kumar RN Service: Anesthesiology Author Type: Registered Nurse Filed: 01/01/161531 Date of Service: 01/01/161529 Status: Signed Publicity Manager: Loren Kumar RN (Registered Nurse) Patient stated he saw a rock crusher operator in [facility] at [facility], but medical records the re, unable to find any tests, notes, to send. onver román Transaction, Provider Unknown - 01/01/2016 3:21 PM PDT Pre-Procedure Instructions by Loren Kumar RN at 01/01/16 152 Author: Loren Kumar RN Service: Anesthesiology Author Type: Registered Nurse Filed: 01/01/16 1523 Date of Service: 01/01/161520 Status: Signed Publicity Manager: Loren Kumar RN (Registered Nurse) Unable to do Mets score due to the fact patient is a paraplegic, uses motorized wheelchair and needs help with his care. Patient does deny any chest pain or SOB. docume nted in this encounter Plan of Treatment +--------+ [...] [place] | | | | | | [id number] | | | | | | | | +--------+ + + + + documented as of this encounter Visit Diagnoses Not on filedocumented in this encounter
--- OUTSIDE RECORDS SUMMARY | ~2019-11-15 | XMS | Encounter Summary ---
Demographics + + + | Address | [address] | | | [place] [address] | + + + | Home Phone [...] | Author | [facility] | | | and [place] | + + + | Organization | [facility] | | | and [...] Team Providers + +------+ + | Care Outboard Motor Tester Name | Role | Phone | + +------+ + | Edwar Wilhelm PA-C | PCP | | + +------+ + Encounter Details +--------+ + + + + | Date | Type | Department | Care Team | Description | +--------+ + + + + | 02/05/ | Documentati | [facility] | Della Ravi, | | | 2015 | on | MED CTR THERAPY PT | PT [address] | | | | | OP [address] | [place] | | | | | [place] | [address] | | | | | [address] | | | | | | [phone] | | | +--------+ + + + [...] encounter Progress Notes Della Ren, PT - 02/05/2015 1[facility] OP [address] [place] [address] Cancellation Date: 02/05/2015 Patient Information Patient Name: [...] [place] | | | | | | [address] | | | | | | | | +--------+ + + + + documented as of this encounter Visit Diagnoses Not on filedocumented in this encounter
--- OUTSIDE RECORDS SUMMARY | ~2019-11-15 | XMS | Encounter Summary ---
Demographics + + + | Address | [address] | | | [place] [address] | + + + | Home Phone [...] Team Providers + +------+ + | Care Vacuum Tank Tender Name | Role | Phone | + +------+ + | Edwar Wilhelm PA-C | PCP | | + +------+ + Encounter Details +--------+ + + + + | Date | Type | Department | Care Team | Description | +--------+ + + + + | 04/21/ | Documentati | [facility] | Della Ravi, | | | 2016 | on | MED CTR THERAPY PT | PT [address] | | | | | OP [address] | [place] | | | | | [place] | [address] | | | | | [address] | | | | | | [phone] | | | +--------+ + + + [...] encounter Progress Notes Della Ren, PT - 04/21/2015 12:57 PM [facility] OP [address] [place] [address] Cancellation/No Show Date: 04/21/2015 Patient Information Patient [...] [place] | | | | | | [address] | | | | | | | | +--------+ + + + + documented as of this encounter Visit Diagnoses Not on filedocumented in this encounter"
--- OUTSIDE RECORDS SUMMARY | ~2019-11-15 | XMS | Encounter Summary ---
Demographics + + + | Address | [address] | | | [place] [address] | + + + | Home Phone [...] | Author | [facility] | | | and [place] | + + + | Organization | [facility] | | [...] Team Providers + +------+ + | Care Welfare Visitor Name | Role | Phone | + +------+ + | Edwar Wilhelm PA-C | PCP | | + +------+ + Encounter Details +--------+ + + + + | Date | Type | Department | Care Team | Description | +--------+ + + + + | 04/10/ | Documentati | [facility] | Della Ravi, | | | 2016 | on | MED CTR THERAPY PT | PT [address] | | | | | OP [address] | [place] | | | | | [place] | [address] | | | | | [address] | | | | | | [phone] | | | +--------+ + + + [...] encounter Progress Notes Della Ren, PT - 04/10/2015 11:24 [facility] OP [address] [place] [address] Cancellation/No Show Date: 04/10/2015 Patient Information Patient [...] Home Care | Home Health Services | aKyla Dior, | | | 2019 | Visit [...] [place] | | | | | | [address] | | | | | | | | +--------+ + + + + documented as of this encounter Visit Diagnoses Not on filedocumented in this encounter"
--- OUTSIDE RECORDS SUMMARY | ~2019-11-15 | XMS | Encounter Summary ---
Demographics + + + | Address | [address] | | | [place] [address] | + + + | Home Phone [...] | Author | [facility] | | | and [place] | + + + | Organization | [facility] | | | [...] Team Providers + +------+ + | Care Staff Submarine Warfare Officer Name | Role | Phone | + +------+ + | Edwar Wilhelm PA-C | PCP | | + +------+ + Encounter Details +--------+ + + + + | Date | Type | Department | Care Team | Description | +--------+ + + + + | 09/09/ | Documentati | [facility] | JanelleJewely Radha, | | | 2016 | on | MED CTR THERAPY PT | PT [address] | | | | | OP [address] | [place] | | | | | [place] | [address] | | | | | [address] | | | | | | [phone] | | | +--------+ + + + [...] [place] | | | | | | [address] | | | | | | | [...]
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
--- OUTSIDE RECORDS SUMMARY | ~2019-11-15 | XMS | Encounter Summary ---
Demographics + + + | Address | [address] | | | [place] [address] | + + + | Home Phone [...] + | Author | [facility] | | | and [place] | + + + | Organization | [facility] | | | [...] Team Providers + +------+ + | Care Retail Customer Service Specialist Name | Role | Phone | [...] Rehabilitatio | quadriplegia | [address] | [place] | | | | n | at C[address] | [address] | [place], | | | | | level (HCC) | [place], | [place] [address] | | | | | Impaired | [place] [id number] | Phone: | | | | | mobility and | Phone: | [phone] | | | | | ADLs | [phone] | Fax: | | | | | Procedures | Fax: | [phone] | | | | | pt eval | [phone] | | +--------+ + + + + + Encounter Details +--------+---------+ + + + | Date | Type | Department | Care Team | Description | +--------+---------+ + + + | 07/01/ | Office | [facility] | Chris Priest, | Impaired mobility | | 2016 | Visit | MED CTR THERAPY PT | MD [address] | and activities of | | | | OP [address] | [place], [place] | daily living | | | | [place], [place] | [id number] | (Primary Dx); | | | | [address] | | Impaired functional | | | | [phone] | Tori Luis, PT | mobility, balance, | | | | | [address] | gait, and endurance; | | | | | [place], [place] | Quadriplegia, | | | | | [address] | C5-C7, incomplete | | | | | | ([facility]); Posture | | | | | [...] might be different fro m the original. [facility] CTR THERAPY PT OP [address] [place] [address] Physical Therapy Daily Treatment Note Date: 07/02/2015 [...] Precautions Office Visit from 02/23/2015 in [facility] CTR THERAPY PT OP Rehab Precautions Precautions Spinal, Cervical Rehab Learning Style Office Visit from 02/23/2015 in [facility] CTR THERAPY PT OP Learning Style Patient's [...] Luis PT, 07/02/2015 17:03 Patient Name: [facility] II/: 1970/ documented in this [...] Visit | and Rehabilitation | [address] | | | | | | [place] | | | | | | [address] | | | | | | | [...]
--- OUTSIDE RECORDS SUMMARY | ~2019-11-15 | XMS | Clinical Summary ---
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 | | Sensation intact [...] [place] | | | | | | [address] | | | | | | | [...] +--------+ +---------+--------+ | MEDICARE | MEDICA | [id number] | 07/29/19 | [phone] | | Medica | | | RE | | 16-Pre | 5 | | re | | | PART A | | sent | | | | | | AND B | | | | | | + +--------+ +--------+ +---------+--------+ | [employer] [facility] | IHS | [id number] | Effect | | | Indemn | | SERVICE | YELLOW | | michelle | | | ity | | | HAWK | | for | | | | | | | | all | | | | | | | | dates | | | | + +--------+ +--------+ +---------+--------+ | [employer] | [employer] | [id number] | 02/17/ | [phone] | | Medica | | MEDICAID HMO | HEALTH | | 2014-P | 1 | | id | | | MDCD | | resent | | | | | | [place]MO [place] | | | | | | + +--------+ +--------+ +---------+--------+ | [facility] | IHS | [id number] | | | | Indemn | | [...] | 1971 | [phone] | [place] [address] | | | adrián | | | 4 (Home) | | + +--------+ +--------+ + + | Martinez Abbasi II | Person | Self | [birth year] | | [address] | | | al/Fam | | 1971 | [phone] | [place] [address] | | | adrián | | | 4 (Home) | | + +--------+ +--------+ + + | Martinez Abbasi II | Person | Self | [birth year] | | [address] | | | al/Fam | | 1971 | [phone] | [place] [address] | | | adrián | | | 4 (Home) | | + +--------+ +--------+ + + Advance Directives + + + + + | Type | Date Recorded | Patient | Explanation | | | | Design Engineering Intern | | + + + + + | Power of | | | | | Spanish Professor | | | | + + + [...]
--- OUTSIDE RECORDS SUMMARY | ~2019-11-15 | XMS | Encounter Summary ---
Demographics + + + | Address | [address] | | | [place] [address] | + + + | Home Phone [...] Author | [facility] | | | and [place] | + + + | Organization | [facility] | | | [...] Team Providers + +------+ + | Care Construction Driller Name | Role | Phone | + [...] [place] | | | | | | [address] | | | | | | [phone] | | | +--------+ + + + [...] any question 1-6 is yes. Consult with partnership marketing manager prior to visit. S Quadriplegic with [...] | | | | | [place] | | | | | | [address] | | | | | | | | +--------+ + + + + documented as of this encounter Visit Diagnoses Not on filedocumented in this encounter Home Health Visit - Care Plan + + | Visit Type - SN - REPEAT VISIT | | Discipline - Detention | + + + + +--------+--------+-------+ + | Problem | Description | Start | Status | Goals | Interventio | | | | Date | | | ns | + + +--------+--------+-------+ + | HH Other Wound | Upper right back | | | - | 1 problem | | Disciplines: | scab healed over | | Active | | | | Detention | Left buttock hx of | 020 [...] 020 | | | interventio | | Detention | | | | | n | [...] | | Active | | | | Detention | | 020 | | | interventio [...] | | Active | | | | Detention | | 020 | | | interventio [...] | | | | n | | Detention | | | | | scheduled/d | | | | | | | ocumented | | | | | | | in this | | | | | | | visit | + + +--------+--------+-------+ + | Wound Management | Right buttock | | | - | 1 problem | | Disciplines: | | | Active | | | | Detention | | 020 | | | interventio [...] to | | | | | | RAISE DRILLER for counseling | | | | | [...]
--- OUTSIDE RECORDS SUMMARY | ~2019-11-15 | XMS | Encounter Summary ---
Demographics + + + | Address | [address] | | | [place] [address] | + + + | Home Phone [...] | Author | [facility] | | | and [place] | + + + | Organization | [facility] | | [...] Team Providers + +------+ + | Care Battery Container Tester Name | Role | Phone | [...] + + | 10/29/ | Office | [facility] | Chris Priest, | Quadriplegia, C5-C7 | | 2013 | Visit | PHYSIATRY [address] | MD [address] | incomplete (HCC) | | | | [address] | [place], [place] | (Primary Dx); | | | | [place], [place] | [address] | Pressure ulcer, | | | | [address] | | buttock, left, | | | | [phone] | | unstageable (HCC); | | | [...] office note has been dictated. Job ID# [id number] signed by Chris Priest MD at 10/29/2013 2:26 PM Lauren Guajardo RN - 10/29/2013 1:34 PM PDTPatient states mild soreness from PT, but no pain. Patient st ates intermittent spasms. P M Chris Ware MD - 10/29/2013 12:00 AM PDT PHYSICAL MEDICINE AND REHAB [address] [place] [id number] FAX: [phone] OFFICE VISIT PHYSICAL MEDICINE REHABILITATION PROGRESS NOTE [...] jones has been seen by urologist in [place]. He indicates they are planning to place [...] resolved. Chris Priest Jr, MD JACKIE / JWEdliberto JOB #: [id number] cc: JANIE Perez-C documented in this encounter [...] [place] | | | | | | [address] | | | | | | | [...]
--- OUTSIDE RECORDS SUMMARY | ~2019-11-15 | XMS | Encounter Summary ---
Demographics + + + | Address | [address] | | | [place] [address] | + + + | Home Phone [...] Author + + + | Author | [facility] | | | and [place] | + + + | Organization | [facility] | | | [...] Providers + +------+ + | Care Parachute Accessories Attacher Name | Role | Phone | + [...] | Physical | Diagnoses | Priest, | [facility] | | | Services | Therapy / | Incomplete | Chris Garcia MD | Pt Op [address] | | | Required | Rehabilitatio | quadriplegia | [address] | [place] | | | | n | at C5-[address] | [address] | [place], | | | | | level (HCC) | [place], | [place] [address] | | | | | Impaired | [place] [address] | Phone: | | | | | mobility and | Phone: | [phone] | | | | | ADLs | [phone] | Fax: | | | | | Procedures | Fax: | [phone] | | | | | pt eval | [phone] | | +--------+ + + + + + Encounter Details +--------+---------+ + + + | Date | Type | Department | Care Team | Description | +--------+---------+ + + + | 04/08/ | Office | [facility] | Chris Priest, | Impaired mobility | | 2016 | Visit | MED CTR THERAPY PT | MD [address] | and activities of | | | | OP [address] | [place], [place] | daily living | | | | [place], [place] | [address] | (Primary Dx); | | | | [address] | | Impaired functional | | | | [phone] | Della Ravi, PT | mobility, balance, | | | | | [address] | gait, and endurance; | | | | | [place], [place] | Quadriplegia, | | | | | [address] | C5-C7, incomplete | | | | | | ([facility]); Posture | | | | | Igor [...] might be different from t he original. [facility] CTR THERAPY PT OP [address] [place] [address] Physical Therapy Daily Treatment Note Date: 04/08/2015 [...] Rehab Precautions Office Visit from 02/23/2015 in [facility] CTR THERAPY PT OP Rehab Precautions Precautions Spinal, Cervical Rehab Learning Style Office Visit from 02/23/2015 in [facility] CTR THERAPY PT OP Learning Style [...] [place] | | | | | | [address] | | | | | | | [...]
--- OUTSIDE RECORDS SUMMARY | ~2019-11-15 | XMS | Encounter Summary ---
Demographics + + + | Address | [address] | | | [place] [address] | + + + | Home Phone [...] + | Author | [facility] | | | and [place] | + + + | Organization | [facility] | | | [...] Providers + +------+ + | Care Digital Associate Media Director Name | Role | Phone | [...] + + | 08/01/ | Emergency | [facility] | Mikal Dillard, | Catheter (urine) | | 2013 | | MED CTR EMERGENCY | MD [address] | change required | | | | CENTER [address] | [place] | (Primary Dx) | | | | [place] | [address] | | | | | [address] | | | | | | [phone] | | | +--------+ + + + [...] be sent through Care Everywhere.BARRIENTOS CATHETER, CARE (IVORIAN)documented in this encounter Medications at Time of [...] 0 | 03/22/19 | | | (MYCOSTATIN) [id number] | | | | 14 | | [...] as of this encounter ED Notes Mikal Dillard MD - 08/01/2013 11:19 AM PDTFormatting of this note might be different fro m the original. eMERGENCY dEPARTMENT eNCOUnter CHIEF COMPLAINT No chief complaint on file. DEBBIE Abbasi is a 43 y.o. male who presents for a catheter change. He is a quadriplegic and has his catheter changed every month. He was seen at [facility] and sent here f or his Barrientos change. He has no symptoms of anything. [...] (*) Clear PH UA 7.5 5.0-8.0 Specific [place] 1.025 1.001-1.030 PROTEIN UA 300 mg/dL (*) [...] Code Fresh Frozen Plasma Thawed UNIT # [id number] UNIT ABO O UNIT RH POS Unit [...] Code Fresh Frozen Plasma Thawed UNIT # [id number] UNIT ABO O UNIT RH POS Unit Status Transfused URINALYSIS Component Value Range COLOR Yellow Light Yellow, Yellow CLARITY Clear Clear PH UA 5.5 5.0-8.0 Specific [place] <=1.005 1.001-1.030 PROTEIN UA Negative Negative, Trace, [...] Code Fresh Frozen Plasma Thawed UNIT # [id number] UNIT ABO O UNIT RH POS Unit [...] Code Fresh Frozen Plasma Thawed UNIT # [id number] UNIT ABO O UNIT RH POS Unit [...] Miscellaneous Notes Plan of Care - GHADA GUY WAAR - 08/02/2013 12:00 AM PDT D Triage Notes - Babita Land RN - 08/01/2013 10:35 AM [facility]TS[facility]. [...] Visit | and Rehabilitation | [facility] | | | | | | [place], [place] | | | | | | [address] | | | | | | | | +--------+ + + + + documented as of this encounter Visit Diagnoses + + | Diagnosis | + + | Catheter (urine) change required - Primary Fitting and adjustment of urinary device | + + documented in this encounter"
--- OUTSIDE RECORDS SUMMARY | ~2019-11-15 | XMS | Encounter Summary ---
Demographics + + + | Address | [address] | | | [place] [address] | + + + | Home Phone | | + + + | Preferred Language | Unknown | + + + | Marital Status | Single | + + + | Holiness Affiliation | 1074 | + + + [...] Team Providers + +------+ + | Care Tax Services Specialist Name | Role | Phone | [...] | | | [address] | [address] | [place], | | | | | quadrant | [place], [place] | [place] [address] | | | | | Dysphagia | [address] | Phone: | | | | | Gastroesopha | Phone: | [phone] | | | | | geal reflux | [phone] | Fax: | | | | | disease | Fax: | [phone] | | | | | without | [phone] | | | | | | esophagitis [...] | | | | | | | ([facility]) | | | | | | | [...] | | | | | | SC EDG | | | | | | | TRANSORAL | | | | | | | BIOPSY | | | | | | | SINGLE/MULTI | | | | | | | PLE SC | | | | | | [...] | [address] | [place] | (Primary Dx); | | | | [address] [place] | [address] | Dysphagia; | | | | [address] | [phone] | Gastroesophageal | | | | [phone] | | reflux disease | | | [...] [place] | | | | | | [address] | | | | | | | [...] pain, rule out hepatomegaly COMPARISON:None | [facility] | | FINDINGS: Liver:The liver [...] + | [facility] | [address] | [place], [place] | [phone] | | [facility] | | [address] | | | - IMAGING | | [...]
--- OUTSIDE RECORDS SUMMARY | ~2019-11-15 | XMS | Encounter Summary ---
Demographics + + + | Address | [address] | | | [place] [address] | + + + | Home Phone [...] Team Providers + +------+ + | Care Paper Final Inspector Name | Role | Phone | + +------+ + | Edwar Wilhelm PA-C | PCP | | + +------+ + Encounter Details +--------+ + + + + | Date | Type | Department | Care Team | Description | +--------+ + + + + | 07/09/ | Hospital | [facility] | Johnny Rosales, | | | 2013 | Encounter | MED CTR ACUTE | PT [address] | | | | | PHYSICAL THERAPY | [place], [place] | | | | | [address] [place] | [address] | | | | | [place] [address] | | | | | | [phone] | | | +--------+ + + + [...] 0 | 03/22/19 | | | (MYCOSTATIN) [id number] | | | | 14 | | [...] [place] | | | | | | [address] | | | | | | | | +--------+ + + + + documented as of this encounter Visit Diagnoses Not on filedocumented in this encounter"
--- OUTSIDE RECORDS SUMMARY | ~2019-11-15 | XMS | Encounter Summary ---
Demographics + + + | Address | [address] | | | [place] [address] | + + + | Home Phone [...] | Author | [facility] | | | and [place] | + + + | Organization | [facility] | | | [...] Team Providers + +------+ + | Care Stage Driver Name | Role | Phone | + [...] [place] | | | | | | [address] | | | | | | [phone] | | | +--------+ + + + [...] [place] | | | | | | [address] | | | | | | | | +--------+ + + + + documented as of this encounter Visit Diagnoses Not on filedocumented in this encounter"
--- OUTSIDE RECORDS SUMMARY | ~2019-11-15 | XMS | Encounter Summary ---
Demographics + + + | Address | [address] | | | [place] [address] | + + + | Home Phone [...] Team Providers + +------+ + | Care Social Media Marketing Analyst Name | Role | Phone | [...] + | 11/12/ | Home Care | [facility] | Kayla Dior, | SN REPEAT VISIT | | 2019 | Visit | CL[address] | [place] | | | | | [place] | | | | | | [address] | | | | | | [phone] | | | +--------+ + + + [...] Home Health - Kayla Dior RN - 11/13/2019 9:01 AM PDT1) Are you or anyone you [...] any question 1-6 is yes. Consult with engineering design manager prior to visit. Pt with incomplete quadriplegia with stage 3 pressure ulcer to R buttock/coccyx Pt has history of neurogenic bladder with suprapubic catheter, incomplete quadriplegia Wound care provided to wound today. Wound is healing slowly and has pink granulating tissu e noted. Wound may need packing to keep from closing over the top. RN will request. Continue POC Yuly fabian in this encounter Plan of Treatment +--------+ [...] | | | | | [place] | | | | | | [id number] | | | | | | | | +--------+ + + + + documented as of this encounter Visit Diagnoses Not on filedocumented in this encounter Home Health Visit - Care Plan + + | Visit Type - SN - REPEAT VISIT | | Discipline - Correction | + + + + +--------+--------+-------+ + | Problem | Description | Start | Status | Goals | Interventio | | | | Date | | | ns | + + +--------+--------+-------+ + | HH Other Wound | Upper right back | | | - | 1 problem | | Disciplines: | scab healed over | | Active | | | | Correction | Left buttock hx of | 020 [...] | | Active | | | | Correction | | 020 | | | interventio [...] | | | | n | | Correction | | | | | scheduled/d | | | | | | | ocumented | | | | | | | in this | | | | | | | visit | + + +--------+--------+-------+ + | Wound Management | Right buttock | | | - | 1 problem | | Disciplines: | | | Active | | | | Correction | | 020 | | | interventio [...]
--- OUTSIDE RECORDS SUMMARY | ~2019-11-15 | XMS | Encounter Summary ---
Demographics + + + | Address | [address] | | | [place] [address] | + + + | Home Phone [...] | Author | [facility] | | | and [place] | + + + | Organization | [facility] | | [...] Team Providers + +------+ + | Care Strawhat Inspector And Packer Name | Role | Phone | + [...] | | | | | Procedures | [address] | [address] | | | | | 10/21 PEND | [place], | [address] [place] | | | | | [place] | [place] [address] | [place], [place] | | | | | | Phone: | [address] | | | | | | [phone] | Phone: | | | | | | Fax: | [phone] | | | | | | [phone] | Fax: | | | | | | | [phone] | +--------+ + + + + + Reason for Visit + + + | Reason | Comments | + + + | Follow-up | | + + + Encounter Details +--------+---------+ + + + | Date | Type | Department | Care Team | Description | +--------+---------+ + + + | 10/20/ | Office | [facility] | Chris Aguirre, | Incomplete | | 2014 | Visit | PHYSIATRY [address] | MD [address] | quadriplegia at C6 | | | | [address] | [place] | level ([facility]) (Primary | | | | [place] | [address] | Dx); Epigastric | | | | [address] | | pain; Abdominal | | | | [phone] | | spasms; Spasm; | | | [...] MD - 10/20/2014 4:17 PM PDT [facility] [address] [address] OFFICE NOTE CHRIS AGUIRRE JR, MD Patient: MARTINEZ ABBASI Admitting: MR #: [id number] LOC: PT TYPE: Adm Date: 10/20/2014 : [...] 10/20/2014 16:17:43 Transcribed on 10/21/2014 05:27:40 by [facility] job# [id number] Confirmation #: [id number] cc: EDWAR [place] PAC [facility], Chris Garcia MD - 10/20/2014 4:05 PM PDTThis office note has been dictated. Job ID# [id number] signed by Chris Aguirre MD at 10/20/2014 [...] [place] | | | | | | [address] | | | | | | | [...]
--- OUTSIDE RECORDS SUMMARY | ~2019-11-15 | XMS | Encounter Summary ---
Demographics + + + | Address | [address] | | | [place] [address] | + + + | Home Phone [...] Team Providers + +------+ + | Care Hazmat Cdl A Driver Name | Role | Phone | + +------+ + | Edwar Wilhelm PA-C | PCP | | + +------+ + Encounter Details +--------+ + + + + | Date | Type | Department | Care Team | Description | +--------+ + + + + | 04/03/ | Documentati | [facility] | Della Ravi, | | | 2016 | on | MED CTR THERAPY PT | PT [address] | | | | | OP [address] | [place] | | | | | [place] | [address] | | | | | [address] | | | | | | [phone] | | | +--------+ + + + [...] Della Ren, PT - 04/03/2015 11:02 AM [facility] OP [address] [place] [address] Cancellation/No Show Date: 04/03/2015 Patient Information Patient [...] [place] | | | | | | [address] | | | | | | | | +--------+ + + + + documented as of this encounter Visit Diagnoses Not on filedocumented in this encounter"
--- OUTSIDE RECORDS SUMMARY | ~2019-11-15 | XMS | Encounter Summary ---
Demographics + + + | Address | [address] | | | [place] [address] | + + + | Home Phone [...] Author + + + | Author | [facility] | | | and [place] | + + + | Organization | [facility] | | [...] Team Providers + +------+ + | Care Typing Section Chief Name | Role | Phone | + [...] + + | 11/24/ | Emergency | [facility] | [place], | Fibula fracture, | | 2014 | | MED CTR EMERGENCY | Eliu Garcia MD [address] | left, closed, | | | | CENTER [address] | [address] | initial encounter | | | | [place] | [place] [address] | (Primary Dx); Left | | | | [address] | [phone] | knee sprain, initial | | | | [phone] | | encounter | +--------+ + + [...] 0 | 03/22/19 | | | (MYCOSTATIN) [id number] | | | | 14 | | [...] might be differe nt from the original. [facility] [place] Abbasi II Emergency Department Encounter Note [address] [place] [address] PCP:Edwar Wilhelm PA-C [phone] CHIEF COMPLAINT Chief [...] up with Edwar Wilhelm PA-C. Specialty: Physician Leather Sorter-Medical Contact information: [address] [place] [address] Eliu Jacob MD 11/24/14 1230 do cumented [...] [place] | | | | | | [address] | | | | | | | [...]
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
--- OUTSIDE RECORDS SUMMARY | ~2019-11-15 | XMS | Encounter Summary ---
Demographics + + + | Address | [address] | | | [place] [address] | + + + | Home Phone | | + + + | Preferred Language | Unknown | + + + | Marital Status | Single | + + + | Taoism Affiliation | [id number] | + + + [...] Team Providers + +------+ + | Care Benzene Still Utility Operator Name | Role | Phone | + +------+ + | Edwar Wilhelm PA-C | PCP | | + +------+ + Encounter Details +--------+ + + + + | Date | Type | Department | Care Team | Description | +--------+ + + + + | 03/02/ | Hospital | [facility] | Chase Montalvo, | | | 2017 | Encounter | [facility] | [address] | | | | | [address] | [address] | | | | | [place], [place] | [place] [address] | | | | | [address] | [phone] | | | | | [phone] | | | +--------+ + + + [...] 0 | 03/22/19 | | | (MYCOSTATIN) [id number] | | | | 14 | | [...] Date of Service: 03/02/16 1016 Status: Signed Logistics Coordinator: Steffany Wiseman RN (Registered Nurse) Patient discharged [...] Date of Service: 03/02/16 0752 Status: Signed Logistics Coordinator: Chase Montalvo MD (Physician) [facility] Service: Urology Initial Consult Note Patient: Martinez [...] had a couple of occasions with a 16-Malay catheter wherein they became clogged with m ucus, but these were managed at that time. He is otherwise doing well. He is not on any bloo d thinners. He has had no previous abdominal surgeries. REVIEW OF OUTSIDE RECORDS Summary of pertinent findings: to be scanned in. Previously with [address] Renny leroy. PMH: CVA [...] Date of Service: 03/02/16 0754 Status: Signed Logistics Coordinator: Chase Montalvo MD (Physician) [facility]: Urology Operative Note Pre-operative Diagnosis: Neurogenic bladder Post-operative Diagnosis: Same Procedure(s): Cystoscopy with punch suprapubic tube placement Surgeon: Chase Montalvo MD Bridge Ironworker(s): none Anesthesia: General LMA Estimated Blood Loss: [...] The dilator was removed and an 18 danish catheter was advanced through the sheath and [...] [place] | | | | | | [address] | | | | | | | | +--------+ + + + + documented as of this encounter Visit Diagnoses Not on filedocumented in this encounter
--- OUTSIDE RECORDS SUMMARY | ~2019-11-15 | XMS | Encounter Summary ---
Demographics + + + | Address | [address] | | | [place] [address] | + + + | Home Phone [...] Team Providers + +------+ + | Care Short Story Writer Name | Role | Phone | + [...] + + | 11/04/ | Telephone | [facility] | Chris Priest, | Other | | 2014 | | PHYSIATRY [address] | [address] | | | | | [address] | [place] | | | | | [place] | [address] | | | | | [address] | | | | | | [phone] | | | +--------+ + + + [...] 11/05/2014 9:28 AM PDTReferral resent from 12/11 fx#[id number] signed by Lauren Troy RN at 11/05/2014 9:28 AM PDTTe lephone Encounter - Amelia Huddleston - 11/04/2014 8:[facility] for a standing station that was previously written for this patient. They state that the patient is now able to use one, but they need a new Rx and some form of documentati on in Dr. Priest's notes stating that this is needed in order for it [place]. Nkechi, a nurse, can be contacted for any further questions or clarification at [phone]. Otherwise this information can be faxed to [...] [place] | | | | | | [address] | | | | | | | | +--------+ + + + + documented as of this encounter Visit Diagnoses Not on filedocumented in this encounter"
--- OUTSIDE RECORDS SUMMARY | ~2019-11-15 | XMS | Encounter Summary ---
Demographics + + + | Address | [address] | | | [place] [address] | + + + | Home Phone [...] Author + + + | Author | [facility] | | | and [place] | + + + | Organization | [facility] | | | and [...] Team Providers + +------+ + | Care Systems Integration Engineer Name | Role | Phone | [...] [place] | | | | | | [address] | | | | | | [phone] | | | +--------+ + + + [...] any question 1-6 is yes. Consult with inside channel account manager prior to visit. S Incomplete quadriplegia [...] abdomen with betadine and inserted new 18 japanese 10 c c catheter without resisitance. Immediate [...] | | | | | [place] | | | | | | [address] | | | | | | | | +--------+ + + + + documented as of this encounter Visit Diagnoses Not on filedocumented in this encounter Home Health Visit - Care Plan + + | Visit Type - SN - REPEAT VISIT | | Discipline - Senior Living | + + + + +--------+--------+-------+ + | Problem | Description | Start | Status | Goals | Interventio | | | | Date | | | ns | + + +--------+--------+-------+ + | HH Other Wound | Upper right back | | | - | 1 problem | | Disciplines: | scab healed over | | Active | | | | Senior Living | Left buttock hx of | 020 [...] | Active | | | | Senior Living | | 020 | | | interventio [...] | | | interventio | | Senior Living | | | | | n | [...] | | | n | | Senior Living | | | | | scheduled/d | | | | | | | ocumented | | | | | | | in this | | | | | | | visit | + + +--------+--------+-------+ + | Wound Management | Right buttock | | | - | 1 problem | | Disciplines: | | | Active | | | | Senior Living | | 020 | | | interventio [...]
--- OUTSIDE RECORDS SUMMARY | ~2019-11-15 | XMS | Encounter Summary ---
Demographics + + + | Address | [address] | | | [place] [address] | + + + | Home Phone [...] + + + | Author | [facility] | | | and [place] | + + + | Organization | [facility] | | [...] Providers + +------+ + | Care Computer Teacher Name | Role | Phone | [...] [place] | | | | | | [address] | | | | | | [phone] | | | +--------+ + + + [...] any question 1-6 is yes. Consult with quality assurance manager prior to visit. S Pt with [...] [place] | | | | | | [address] | | | | | | | | +--------+ + + + + documented as of this encounter Visit Diagnoses Not on filedocumented in this encounter Home Health Visit - Care Plan + + | Visit Type - SN - REPEAT VISIT | | Discipline - Retirement | + + + + +--------+--------+-------+ + | Problem | Description | Start | Status | Goals | Interventio | | | | Date | | | ns | + + +--------+--------+-------+ + | HH Other Wound | Upper right back | | | - | 1 problem | | Disciplines: | scab healed over | | Active | | | | Retirement | Left buttock hx of | 020 [...] | | Active | | | | Retirement | | 020 | | | interventio [...] | | | | n | | Retirement | | | | | scheduled/d | | | | | | | ocumented | | | | | | | in this | | | | | | | visit | + + +--------+--------+-------+ + | Wound Management | Right buttock | | | - | 1 problem | | Disciplines: | | | Active | | | | Retirement | | 020 | | | interventio [...]
--- OUTSIDE RECORDS SUMMARY | ~2019-11-15 | XMS | Encounter Summary ---
Demographics + + + | Address | [address] | | | [place] [address] | + + + | Home Phone [...] Team Providers + +------+ + | Care Pipe Coverer Helper Name | Role | Phone | + +------+ + | Edwar Wilhelm PA-C | PCP | | + +------+ + Encounter Details +--------+ + + + + | Date | Type | Department | Care Team | Description | +--------+ + + + + | 03/03/ | Documentati | [facility] | Della Ravi, | | | 2016 | on | MED CTR THERAPY PT | PT [address] | | | | | OP [address] | [place] | | | | | [place] | [address] | | | | | [address] | | | | | | [phone] | | | +--------+ + + + [...] Ren, PT - 03/03/2015 10:44 AM [facility] [address] [place] [address] Cancellation/No Show Date: 03/03/2015 Patient Information Patient [...] [place] | | | | | | [address] | | | | | | | | +--------+ + + + + documented as of this encounter Visit Diagnoses Not on filedocumented in this encounter"
--- OUTSIDE RECORDS SUMMARY | ~2019-11-15 | XMS | Encounter Summary ---
Demographics + + + | Address | [address] | | | [place] [address] | + + + | Home Phone [...] | Author | [facility] | | | and [place] | + + + | Organization | [facility] | | [...] Providers + +------+ + | Care Insole Buffer Name | Role | Phone | + [...] [place] | | | | | | [address] | | | | | | [phone] | | | +--------+ + + + [...] any question 1-6 is yes. Consult with software development project manager prior to visit. Pt with incomplete [...] | | | | | [place] | | | | | | [address] | | | | | | | [...]
--- OUTSIDE RECORDS SUMMARY | ~2019-11-15 | XMS | Encounter Summary ---
Demographics + + + | Address | [address] | | | [place] [address] | + + + | Home Phone [...] + + + | Author | [facility] | | | and [place] | + + + | Organization | [facility] | | | and [...] Team Providers + +------+ + | Care Front Load Trash Truck Driver Name | Role | Phone | [...] [place] | | | | n | ([facility]LY [facility]) | [address] | [address] | | | | | Abdominal | [place], | [place] | | | | | spasms | [place] [address] | [address] Phone: | | | | | Muscle spasm | Phone: | [phone] | | | | | of both | [phone] | Fax: | | | | | lower legs | Fax: | [phone] | | | | | Neurogenic | [phone] | | | | | | bladder [...] + + | 09/15/ | Office | [facility] | Diomedes Zarate, | Tetraplegia (HCC) | | 2017 | Visit | PHYSIATRY [address] | [address] | (Primary Dx) | | | | [address] | [address] [place], | | | | | [place] | [place] [address] | | | | | [address] | [phone] | | | | | [phone] | | | +--------+---------+ + + + [...] Medicine Consult Note Diomedes Zarate MD [address] [place] [address] FAX: CHIEF COMPLAINT: Chief Complaint [...] never worked, was ordered by PT in [facility]. Uses transfers with transfer board, independently. #Skin [...] IS PARAPLEGIC; Surgeon: Jonathan Avendaño MD; Location: [facility] CURRENT MEDICATIONS: Current Outpatient Prescriptions Medication [...] pay for another on e. For reference [place] has a wheelchair clinic where vendors are [...] PLAN: -Return to clinic before I leave [facility] in October, otherwise can follow-up with Dr. [...] [place] | | | | | | [address] | | | | | | | | +--------+ + + + + documented as of this encounter Visit Diagnoses + + | Diagnosis | + + | Tetraplegia (HCC) - Primary Quadriplegia, unspecified | + + documented in this encounter
--- OUTSIDE RECORDS SUMMARY | ~2019-11-15 | XMS | Encounter Summary ---
Demographics + + + | Address | [address] | | | [place] [address] | + + + | Home Phone [...] Team Providers + +------+ + | Care Kennel Operator Name | Role | Phone | [...] | quadriplegia | [address] | [place] | | | | n | at C5-[address] | [address] | [place], | | | | | level (HCC) | [place], | [place] [address] | | | | | Impaired | [place] [address] | Phone: | | | | | mobility and | Phone: | [phone] | | | | | ADLs | [phone] | Fax: | | | | | Procedures | Fax: | [phone] | | | | | pt eval | [phone] | | +--------+ + + + + + Encounter Details +--------+---------+ + + + | Date | Type | Department | Care Team | Description | +--------+---------+ + + + | 06/17/ | Office | [facility] | Chris Priest, | Impaired mobility | | 2016 | Visit | MED CTR THERAPY PT | MD [address] | and activities of | | | | OP [address] | [place] | daily living | | | | [place] | [id number] | (Primary Dx); | | | | [address] | | Impaired functional | | | | [phone] | Tori Luis, PT | mobility, balance, | | | | | [address] | gait, and endurance; | | | | | [place], [place] | Quadriplegia, | | | | | [address] | C5-C7, incomplete | | | | [...] might be different fro m the original. [facility] CTR THERAPY PT OP [address] [place] [address] Physical Therapy Daily Treatment Note Date: 06/18/2015 Patient Information Patient Name: Martinez Abbasi II Date of : 1970 Age: 44 y.o. Encounter Diagnoses Code Name Primary? Z74.09 Impaired mobility and activities of daily living Yes Z74.09 Impaired functional mobility, balance, gait, and endurance G82.54 Quadriplegia, C5-C7, incomplete ([facility]) R29.3 Posture imbalance M54.2 Neck pain M25.511, M25.512 Bilateral shoulder pain, unspecified chronicity Z74.09 Impaired mobility and ADLs M62.838 Muscle spasm of both lower legs Date of Onset: 02/08/2014 Referring Provider: Chris Priest MD Rehab Precautions Office Visit from 02/23/2015 in [facility] CTR THERAPY PT OP Rehab Precautions Precautions Spinal, Cervical Rehab Learning Style Office Visit from 02/23/2015 in [facility] THERAPY PT OP Learning [...] [place] | | | | | | [address] | | | | | | | [...]
--- OUTSIDE RECORDS SUMMARY | ~2019-11-15 | XMS | Encounter Summary ---
Demographics + + + | Address | [address] | | | [place] [address] | + + + | Home Phone [...] Author + + + | Author | [facility] | | | and [place] | + + + | Organization | [facility] | | | [...] Team Providers + +------+ + | Care Canal Driver Name | Role | Phone | [...] | | Urinary | | [address] | | | | | tract | | [place], | | | | | infection | | [place] | | | | | Fever | | [address] | | | | | Hematuria, | | Phone: | | | | | gross | | [phone] | | | | | Quadriplegia | | Fax: | | | | | following | | [phone] | | | | | spinal cord [...] + + | 07/05/ | Hospital | [facility] | Herman [place], | Hematuria, gross | | 2013 - | Encounter | [facility] | [address] | (Primary Dx); | | | | [address] | [facility] | 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/ | | [place] [address] | [place] [address] | coagulopathy, | | 2013 | | [phone] | [phone] | initial encounter; | | | | | | Fever; Urinary tract | | | | | Owen Gauthier, | infection; | | | | | [address] | Quadriplegia | | | | | [place], [place] | following 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 Contact information: Margaux Alexandre [facility] [address] Discharge Medication List as of 07/09/2013 13:54 [...] or Severe Contraindications. Consult references such as [email or web address] for f urther information. Studies With Pending Results: None Greater than 30 minutes were spent on discharge and coordination of post-hospital care. Electronically signed by: Winston Ascencio MD, 07/09/2013 23:29 [facility] documented in this encounter Discharge Instructions [...] 0 | 03/22/19 | | | (MYCOSTATIN) [id number] | | | | 14 | | [...] PDT . HOSPITALIST PROGRESS NOTE on 07/08/2013 [facility] Pt. Name/Age/: Martinez Abbasi 42 y.o. 1970 Med. Record Number: [id number] Primary Care Physician: Edwar Wilhelm Date of [...] with Dr. Salgado. Much better. Transfer to [facility] 07/08. Seems to be E. Coli. Sensitivities [...] -- No results found for this basename: PHART:3,PO2ART:3,EYG4WQD:3,D4EFTXDP:3,BEART:[address] 168 hours No results found for this basename: CKTOTAL:3,TROPONINI:3,TROPONINT:3,CKMBINDEX:3,BNP:3 in the last 168 hours Lab 07/08/13 0449 07/07/13 0412 07/06/13 1525 APTT -- -- -- INR 1.11* 1.76* 1.78* PTT -- -- -- DDIMER -- -- -- No results found for this basename: POCGLU Micro results last 72hrs: Microbiology Results (72 hrs) Procedure Component Value Units Date/Time Culture, MRSA [[id number]] Collected:07/06/13 0146 Order Status:Completed Lab Status:Final result Updated:07/07/13 1036 Specimen Information:Respiratory / Nares Culture Negative for MRSA by chromogenic agar method Culture, Urine [[id number]] Collected:07/05/13 211 Order Status:Completed Lab Status:Final result Updated:07/07/13 1203 Specimen Information:Urine Culture Result: <10,000 CFU/ml Mixed reinier (multiple morphologies present) Comment: Suggests contamination with urogenital or skin reinier. Culture, Blood [[id number]] Collected:07/05/132057 Order Status:Completed Lab Status:Final result Updated:07/07/13 1010 Specimen Information:Blood / Peripheral Blood Culture Gram Negative Rods Narrative: 4 of 4 bottles positive for gram negative bacilli. Please see [id number] for ID and sensitivity. Culture, Blood [[id number]] Collected:07/05/132057 Order Status:Completed Lab Status:Final result Updated:07/08/13923 [...] 0601 acetaminophen, albuterol, ondansetron DVT Prophylaxis Coumadin [facility] Documentation I expect this patient will be hospitalized for greater than 2-midnights and expect the post -hospital plan to be discharge to home or to an adult foster home. Electronically signed by: Chase Russ MD, 07/08/2013 9:55 [facility] Portions of this chart may have been created with[employer] voice recognition software. Occas ional wrong-word or [...] DVT prevention. Starting lower than patient's ho vt regimen because he was supratherapeutic when admitted to the hospital. 2. Medication profile reviewed for potential drug-drug interactions 3. Labs in am: Hgb, Hct, INR 4. Pharmacist to follow daily Per P&T-approved Electronically signed by: Noelle Miranda, PHARMEl 07/07/2013 8:37 Chase Wu MD - 07/07/2013 8:10 AM PDT . HOSPITALIST PROGRESS NOTE on 07/07/2013 [facility] Pt. Name/Age/: Martinez Abbasi 42 y.o. 1970 Med. Record Number: [id number] Primary Care Physician: Edwar Wilhelm Date of [...] -- No results found for this basename: PHART:3,PO2ART:3,JQU5PEP:3,C1AULZUJ:3,BEART:[address] 168 hours No results found for this basename: CKTOTAL:3,TROPONINI:3,TROPONINT:3,CKMBINDEX:3,BNP:3 in the last 168 hours Lab 07/07/13 0412 07/06/13 1525 07/06/13 0439 APTT -- -- -- INR 1.76* 1.78* 2.30* PTT -- -- -- DDIMER -- -- -- No results found for this basename: POCGLU Micro results last 72hrs: Microbiology Results (72 hrs) Procedure Component Value Units Date/Time Culture, MRSA [[id number]] Collected:07/06/13145 Order Status:Sent Lab Status:In process Updated:07/06/13145 Specimen Information:Respiratory / Nares Culture, Urine [[id number]] Collected:07/05/132112 Order Status:Completed Lab Status:Preliminary result Updated:07/06/13844 Specimen Information:Urine Culture No growth to date Culture, Blood [[id number]] Collected:07/05/132057 Order Status:Completed Lab Status:Preliminary result Updated:07/06/132126 Specimen Information:Blood / Peripheral Blood Gram Stain Result Gram negative rods Comment: 3 (aer) of 4 bottles positive to date Gram Stain Result Gram negative rods Comment: 4 of 4 bottles positive 07-06-132099 Culture, Blood [[id number]] Collected:07/05/132057 Order Status:Completed Lab Status:Preliminary result Updated:07/06/13 [...] signed by: Chase Russ MD, 07/07/2013 8:10 [facility] Portions of this chart may have been created with[employer] voice recognition software. Occas ional wrong-word or [...] AM PDT HOSPITALIST PROGRESS NOTE on 07/06/2013 [facility] Pt. Name/Age/: Martinez Abbasi 42 y.o. 1970 Med. Record Number: [id number] Primary Care Physician: Edwar Wilhelm Date of [...] no mass, no rebou nd, no guarding RESTAURANT AREA MANAGER: Alert, oriented x 3. Diagnostic Studies: Radiology: [...] -- No results found for this basename: PHART:3,PO2ART:3,VPJ7HJX:3,J6FQKVMC:3,BEART:[address] 168 hours No results found for this basename: CKTOTAL:3,TROPONINI:3,TROPONINT:3,CKMBINDEX:3,BNP:3 in the last 168 hours Lab 07/06/139 07/05/132057 APTT -- -- INR 2.30* 3.28* PTT -- -- DDIMER -- -- No results found for this basename: POCGLU Micro results last 72hrs: Microbiology Results (72 hrs) Procedure Component Value Units Date/Time Culture, MRSA [[id number]] Collected:07/06/13145 Order Status:Sent Lab Status:In process Updated:07/06/13145 Specimen Information:Respiratory / Nares Culture, Urine [[id number]] Collected:07/05/132112 Order Status:Sent Lab Status:In process Updated:07/05/132143 Specimen Information:Urine Culture, Blood [[id number]] Collected:07/05/132057 Order Status:Sent Lab Status:In process Updated:07/05/132116 Specimen Information:Blood / Peripheral Blood Culture, Blood [[id number]] Collected:07/05/132057 Order Status:Sent Lab Status:In process Updated:07/05/132116 [...] albuterol, ondansetron DVT Prophylaxis Coumadin at home. [facility] Documentation I expect this patient will be hospitalized for greater than 2-midnights and expect the post -hospital plan to be discharge to home or to an adult foster home. Electronically signed by: Chase Russ MD, 07/06/2013 8:17 [facility] Portions of this chart may have been created with[employer] voice recognition software. Occas ional wrong-word or sound-alike substitutions may have occurred due to the inherent li mitations of voice recognition software. Please read the chart carefully and recognize, usin g context, where these substitutions have occurred. documented in this encounter H&P Notes Owen Gauthier MD - 07/05/2013 10:28 PM PDT [facility]YSICAL Pt. Name/Age/: [...] urine output after Hancock catheter insertion at [facility] yesterday. Appa rently he has been [...] Gas: No results found for this basename: PHART:3,PO2ART:3,UUH2HBP:3,G9APPJRB:3,B EART:3 in the last 168 hours Cardiac Enzymes: No results found for this basename: CKTOTAL:3,TROPONINI:3,TROPONINT:3,CKMB INDEX:3,BNP:3 in the last 168 hours Coags: Lab 07/05/132057 APTT -- INR 3.28* PTT -- DDIMER -- Blood Sugars Checks: No results found for this basename: POCGLU Micro results last 72hrs: Microbiology Results (72 hrs) Procedure Component Value Units Date/Time Culture, Urine [[id number]] Collected:07/05/132112 Order Status:Sent Lab Status:In process Updated:07/05/132143 Specimen Information:Urine Culture, Blood [[id number]] Collected:07/05/132057 Order Status:Sent Lab Status:In process Updated:07/05/132116 Specimen Information:Blood / Peripheral Blood Culture, Blood [[id number]] Collected:07/05/132057 Order Status:Sent Lab Status:In process Updated:07/05/132116 [...] by: Marvin Gauthier MD 07/05/2013 22:28 [facility] Portions of this chart may have been created with [employer] voice recognition software. Occasi onal wrong-word or sound-alike substitutions may have occurred due to the inherent beltran itations of voice recognition software. Please read the chart carefully and recognize, using context, where these substitutions have occurred documented in this encounter Consult Notes Dane Salgado MD - 07/06/2013 8:27 AM PDT [facility] UROLOGY CONSULTATION NOTE Primary Care Physician: Edwar Wilhelm PATIENT NAME: Martinez Abbasi : 1970 TODAY'S DATE: 07/06/2013 IMPRESSION: 1. Malposition of urethral catheter 2. Hancock balloon laceration of urethra Present on Admission: Septic shock ([facility]) Acute renal failure (ARF) ([facility]) UTI (lower urinary tract [...] by: Dane Salgado MD, 07/06/2013 8:27 [facility] documented in this en counter ED Notes Rosa Giraldo RN - 07/06/2013 12:39 AM PDTObtained blood consent from patient's , Sofiya Mcdonough via telephone. Verified with second RN. Herman Guajardo MD - 07/05/2013 9:22 PM PDT [facility] Emergency Department Encounter Note [address] [place] [id number] PCP:Edwar Wilhelm [phone] CHIEF COMPLAINT Chief Complaint [...] ey catheter he had in place from [facility] the bulb inflated in his urethra. [...] at 0 07/05/2013 8:24 PM Stephanie Bah, Tailor Helper - 07/05/2013 8:20 PM PDTLarge blood clot removed from under foreskin during catheter insertion. Pt. Tolerated insertion well. C ontinues to have bleeding around catheter. Catheter bag draining bright red. documented in this enco unter Miscellaneous Notes Plan of Care - ONMANPREET SCAN [facility] - 07/18/2013 12:00 AM PDT iscellaneous - ONBASE SCAN [facility] - 07/18/2013 12:00 AM PDTElec tronically signed by Maria Luisa Nguyễn at 07/18/2013 4:08 PM PDTMiscellaneous - ONBASE SCAN [facility] - 07/18/2013 12:00 AM PDT i scellaneous - ONBASE SCAN [facility] - 07/18/2013 12:00 AM PDT lan [...] home. lan of Care - David Lentz, RAG GRADER - 07/09/2013 4:33 AM PDTProblem: General Plan [...] not needed today. lan of Princess Boyle Scale Clerk-Clinical - 07/08/2013 4:41 PM PDTProblem: General Plan of Care (Adul t, Obstetrics) Goal: Care Plan Shift Summary & Review . Met with patient regarding his potential needs upon discharge. Patient states that he has b een on Warfarin 7.5 mg already and is being checked monthly for his INR. [facility] for following up with his sepsis, patient chose [facility], since he did not want to go back to [facility] this issue. Does have daily family caregivers, no t paid, who take care of him until his comes home from work. He is all set up with the DME's he needs at home. Has his own quad shower chair and motorized w/c. Attempted to call [facility] today, but they were already closed, so will try tomorrow am to see if [facility] HH is contracted with them.Electronically signed by: Princess Maloney, INTERNET PROGRAMMER 07/08/2013 16:42 la n of [place] - [...] man and very positive. He lives in [place] with SO. She has been supportive but was not present at the time of my vi sit. Martinez stated no needs, but expressed appreciation for the visit. Will see the patient as requested. If there are any other spiritual care issues that arise, please contact compression molding machine operator. Olive Hope RN - 07/07/2013 8:04 AM [...] drain cloudy, yellow/pink urine. Electronically signed by Oilve Gill RN at 06/27 4:10 PM PDTPlan [...] 6:41 PM PDTPt had cath placed at [facility] yesterday. He has had blood in his [...] | | | | | [place] | | | | | | [address] | | | | | | | [...] [address] | [place] | [phone] | | [facility] | | [address] | | | - LABORATORY | | | | + + + + + | [facility] | [address] | [place] | | | [facility] | | [address], [facility] | | | - LABORATORY | [...] mL/min/1.73m2 | [facility] | | | [place] | RATE,ESTIMATED | | MEDICAL | | | | mL/min/1.96i3Mepx than | | CENTER - | | [...] + | [facility] | [address] | [place], [place] | [phone] | | [facility] | | [address] | | | - LABORATORY | | | | + + + + + | [facility] | [address] | [place], [place] | | | [facility] | | [address] [place] [address] | | | - LABORATORY | | [...] + | [facility] | [address] | [place] | [phone] | | [facility] | | [address] | | | - LABORATORY | | | | + + + + + | [facility] | [address] | [place] | | | [facility] | | [address] | | | - LABORATORY | | [...] [address] | [place] | [phone] | | [facility] | | [address] | | | - LABORATORY | | | | + + + + + | [facility] | [address] | [place] | | | [facility] | | [address], [facility] | | | - LABORATORY | [...] mL/min/1.73m2 | [facility] | | | [place] | RATE,ESTIMATED | | MEDICAL | | | | mL/min/1.49y3Enem than | | CENTER - | | [...] + | [facility] | [address] | [place], [place] | [phone] | | [facility] | | [address] | | | - LABORATORY | | | | + + + + + | [facility] | [address] | [place], [place] | | | [facility] | | [address], [facility] | | | - LABORATORY | [...] [address] | [place] | [phone] | | [facility] | | [address] | | | - LABORATORY | | | | + + + + + | [facility] | [address] | [place] | | | [facility] | | [address], [facility] | | | - LABORATORY | [...] mL/min/1.73m2 | [facility] | | | [place] | RATE,ESTIMATED | | MEDICAL | | | | mL/min/1.16h7Tghy than | | CENTER - | | [...] + | [facility] | [address] | [place], [place] | [phone] | | [facility] | | [address] | | | - LABORATORY | | | | + + + + + | [facility] | [address] | [place], [place] | | | [facility] | | [id number] [place] [address] | | | - LABORATORY | | [...] | | Cells | | M/uL | [facility] | | | | | | MEDICAL | | | | | | CENTER - | | | | | | LABORATORY | | + + + + + + | Hemoglobin | 8.3 (L) | 13.5 - 18.0 | [facility] | | | | | g/dL | [facility] | | | [...] [address] | [place] | [phone] | | [facility] | | [address] | | | - LABORATORY | | | | + + + + + | [facility] | [address] | [place] | | | [facility] | | [address], [facility] | | | - LABORATORY | [...] [address] | [place] | [phone] | | [facility] | | [address] | | | - LABORATORY | | | | + + + + + | [facility] | [address] | [place] | | | [facility] | | [address], [facility] | | | - LABORATORY | [...] + + + | UNIT # | [id number] | | [facility] | | | | [...] ST. | [address] | [place], [place] | | | [facility] | | [address] | | | - BLOOD BANK | [...] + + + | UNIT # | [id number] | | [facility] | | | | [...] St | [place] | | | [facility] | | [address] | | | - BLOOD BANK | [...] + + + | UNIT # | [id number] | | [facility] | | | | [...] + | [facility] | [address] | [place] | | | [facility] | | [address] | | | - BLOOD BANK | [...] + + + | UNIT # | [id number] | | [facility] | | | | [...] [address] | [place] | | | [facility] | | [address] | | | - BLOOD BANK | [...] + | [facility] | [address] | [place], [place] | [phone] | | [facility] | | [address] | | | - LABORATORY | | | | + + + + + | [facility] | [address] | [place], [place] | | | [facility] | | [address] [place] [address] | | | - LABORATORY | | [...] | 0.80 | 0.60 - 1.30 | [facility] | | | | | mg/dL | [facility] | | | | | | MEDICAL | | | | | | CENTER - | | | | | | LABORATORY | | + + + + + + | eGFR, | >60Comment: GLOMERULAR | >=60 | [facility] | | | non- | FILTRATION | mL/min/1.73m2 | [facility] | | | [place] | RATE,ESTIMATED | | MEDICAL | | | | mL/min/1.28b1Eyft than | | CENTER - | | [...] + | [facility] | [address] | [place], [place] | [phone] | | [facility] | | [address] | | | - LABORATORY | | | | + + + + + | [facility] | [address] | [place], [place] | | | [facility] | | [address], [facility] | | | - LABORATORY | [...] + | [facility] | [address] | [place] | [phone] | | [facility] | | [address] | | | - LABORATORY | | | | + + + + + | [facility] | [address] | [place] | | | [facility] | | [id number] | | | - LABORATORY | | [...] | + + + + + | [facility] | [address] | [place], [place] | [phone] | | [facility] | | [address] | | | - LABORATORY | | | | + + + + + | [facility] | [address] | [place], [place] | | | [facility] | | [address] | | | - LABORATORY | | [...] [address] | [place] | [phone] | | [facility] | | [address] | | | - LABORATORY | | | | + + + + + | [facility] | [address] | [place] | | | [facility] | | [address] | | | - LABORATORY | | [...] | + + + + + | [facility] | [address] | [place], [place] | [phone] | | [facility] | | [address] | | | - LABORATORY | | | | + + + + + | [facility] | [address] | [place], [place] | | | [facility] | | [address], [facility] | | | - LABORATORY | [...] - 1.030 | [facility] | | | [place], | | | [facility] | | [...] | n, Urine | | | [facility] | | | | | [...] [address] | [place] | [phone] | | [facility] | | [address] | | | - LABORATORY | | | | + + + + + | [facility] | [address] | [place] | | | [facility] | | [address], [facility] | | | - LABORATORY | [...] [address] | [place] | [phone] | | [facility] | | [address] | | | - LABORATORY | | | | + + + + + | [facility] | [address] | [place] | | | [facility] | | [address] | | | - LABORATORY | | [...] + | [facility] | [address] | [place], [place] | [phone] | | [facility] | | [address] | | | - LABORATORY | | | | + + + + + | [facility] | [address] | [place], [place] | | | [facility] | | [address], [facility] | | | - LABORATORY | [...] [address] | [place] | [phone] | | [facility] | | [address] | | | - LABORATORY | | | | + + + + + | [facility] | [address] | [place] | | | [facility] | | [address] | | | - LABORATORY | | [...] mL/min/1.73m2 | [facility] | | | [place] | RATE,ESTIMATED | | MEDICAL | | | | mL/min/1.39p4Pxis than | | CENTER - | | [...] (L) | 3.2 - 5.0 g/dL | [facility] | | | | | | ST. [...] + | [facility] | [address] | [place] | [phone] | | [facility] | | [address] | | | - LABORATORY | | | | + + + + + | [facility] | [address] | [place] | | | [facility] | | [address], [facility] | | | - LABORATORY | [...] | chromogenic agar method | | [facility] | | | | | [...] + | [facility] | [address] | [place], [place] | [phone] | | [facility] | | [address] | | | - LABORATORY | | | | + + + + + | [facility] | [address] | [place], [place] | | | [facility] | | [address] [place] [address] | | | - LABORATORY | | [...] + | [facility] | [address] | [place] | [phone] | | [facility] | | [address] | | | - LABORATORY | | | | + + + + + | [facility] | [address] | [place], [place] | | | [facility] | | [address], [facility] | | | - LABORATORY | [...] + | [facility] | [address] | [place] | [phone] | | [facility] | | [address] | | | - LABORATORY | | | | + + + + + | [facility] | [address] | [place], [place] | | | [facility] | | [address], [facility] | | | - LABORATORY | [...] | | | | | mmol/L | [facility] | | | | | [...] + | [facility] | [address] | [place], [place] | [phone] | | [facility] | | [address] | | | - LABORATORY | | | | + + + + + | [facility] | [address] | [place], [place] | | | [facility] | | [address], [facility] | | | - LABORATORY | [...] + | [facility] | [address] | [place], [place] | | | [facility] | | [address] | | | - BLOOD BANK | [...] + | MISCELLANEOUS LAB | | | [phone] | + +---------+ + + | MISCELANIOUS LAB | | | [phone] | + +---------+ + + Culture, Urine [...] + | [facility] | [address] | [place], [place] | [phone] | | [facility] | | [address] | | | - LABORATORY | | | | + + + + + | [facility] | [address] | [place] | | | [facility] | | [address] [place] [address] | | | - LABORATORY | | [...] - 1.030 | [facility] | | | [place], | | | [facility] | | [...] [address] | [place] | [phone] | | [facility] | | [address] | | | - LABORATORY | | | | + + + + + | [facility] | [address] | [place] | | | [facility] | | [address], [facility] | | | - LABORATORY | [...] + | [facility] | [address] | [place], [place] | [phone] | | [facility] | | [address] | | | - LABORATORY | | | | + + + + + | [facility] | [address] | [place], [place] | | | [facility] | | [address] [place] [address] | | | - LABORATORY | | [...] [address] | [place] | [phone] | | [facility] | | [address] | | | - LABORATORY | | | | + + + + + | [facility] | [address] | [place] | | | [facility] | | [address], [facility] | | | - LABORATORY | [...] bacilli. Please see | [facility] | | [id number] for ID and sensitivity. | [facility] | | | [facility] [facility] | | | - LABORATORY | + + + + + + + + | Performing | Address | City/State/Zipcode | Phone Number | | Organization | | | | + + + + + | [facility] | [address] | [place], [place] | [phone] | | [facility] | | [address] | | | - LABORATORY | | | | + + + + + | [facility] | [address] | [place], [place] | | | [facility] | | [address], [facility] | | | - LABORATORY | [...] eGFR, | 32 (L)Comment: | >=60 | [facility] | | | non- | GLOMERULAR FILTRATION | mL/min/1.73m2 | [facility] | | | [place] | RATE,ESTIMATED | | MEDICAL | | | | mL/min/1.84s3Rlax than | | CENTER - | | [...] | | | | | mg/dL | [facility] | | | | | | [...] [address] | [place] | [phone] | | [facility] | | [address] | | | - LABORATORY | | | | + + + + + | [facility] | [address] | [place] | | | [facility] | | [address], [facility] | | | - LABORATORY | [...] + | [facility] | [address] | [place] | [phone] | | [facility] | | [address] | | | - LABORATORY | | | | + + + + + | [facility] | [address] | [place] | | | [facility] | | [address] | | | - LABORATORY | | [...] + | [facility] | [address] | [place], [place] | [phone] | | [facility] | | [address] | | | - LABORATORY | | | | + + + + + | [facility] | [address] | [place], [place] | | | [facility] | | [address] | | | - LABORATORY | | [...]
--- OUTSIDE RECORDS SUMMARY | ~2019-11-15 | XMS | Encounter Summary ---
Demographics + + + | Address | [address] | | | [place] [address] | + + + | Home Phone [...] Team Providers + +------+ + | Care Oncologist Name | Role | Phone | + [...] + + | 07/26/ | Telephone | [facility] | Chris Priest, | Referral (Follow up) | | 2013 | | PHYSIATRY [address] | MD [address] | | | | | [address] | [place] | | | | | [place] | [address] | | | | | [address] | | | | | | [phone] | | | +--------+ + + + [...] urgent. Notified pt that our urologist in [facility] [place] is booking until November, bu t Dr. Salgado from [facility] is booking in middle of September. Informed [...] [place] | | | | | | [address] | | | | | | | | +--------+ + + + + documented as of this encounter Visit Diagnoses Not on filedocumented in this encounter"
--- OUTSIDE RECORDS SUMMARY | ~2019-11-15 | XMS | Encounter Summary ---
Demographics + + + | Address | [address] | | | [place] [address] | + + + | Home Phone [...] Author | [facility] | | | and [place] | + + + | Organization | [facility] | | [...] Team Providers + +------+ + | Care Axminster Weaver Name | Role | Phone | + +------+ + | Edwar Wilhelm PA-C | PCP | | + +------+ + Encounter Details +--------+ + + + + | Date | Type | Department | Care Team | Description | +--------+ + + + + | 12/22/ | Hospital | [facility] | Jonathan Avendaño MD | Abdominal pain, | | 2015 | Encounter | MED CTR ULTRASOUND | [address] | right upper quadrant | | | | [address] | [place], [place] | | | | | [place] | [address] | | | | | [address] | [phone] | | | | | [phone] | | | | | | | [...] 0 | 03/22/19 | | | (MYCOSTATIN) [id number] | | | | 14 | | [...] [place] | | | | | | [address] | | | | | | | [...] RUQ pain, rule out hepatomegaly COMPARISON:None | [facility] | | FINDINGS: Liver:The liver is [...] | + + + + + | [facility] | [address] | [place] | [phone] | | [facility] | | [address] | | | - IMAGING | | | | + + + + + documented in this encounter Visit Diagnoses + + | Diagnosis | + + | Abdominal pain, right upper quadrant | + + documented in this encounter"
--- OUTSIDE RECORDS SUMMARY | ~2019-11-15 | XMS | Encounter Summary ---
Demographics + + + | Address | [address] | | | [place] [address] | + + + | Home Phone [...] | Author | [facility] | | | and [place] | + + + | Organization | [facility] | | [...] Providers + +------+ + | Care Sales Representative [employer] Name | Role | Phone | + [...] | Physical | Diagnoses | Priest, | Do Not Use | | | Services | Therapy / | | Chris Garcia MD | - [facility] | | | Required | Rehabilitatio | Quadriplegia | [address] | [address] | | | | n | ([facility]) | [address] | [address] | | | | | | [place], | [place], | | | | | | [place] [address] | [place] [address] | | | | | | Phone: | Phone: | | | | | | [phone] | [phone] | | | | | | Fax: | Fax: | | | | | | [phone] | [phone] | +--------+ + + + + + Reason for Visit + +--------+ + | Reason | Onset | Comments | | | Date | | + +--------+ + | Referral | 12/23/ | | | | 2014 | | + +--------+ + Encounter Details +--------+ + + + + | Date | Type | Department | Care Team | Description | +--------+ + + + + | 12/23/ | Telephone | [facility] | Chris Priest, | Referral | | 2014 | | PHYSIATRY [address] | MD [address] | | | | | [address] | [place] | | | | | [place] | [address] | | | | | [address] | | | | | | [phone] | | | +--------+ + + + [...] Telephone Encounter - Lauren Troy RN - 12/23/2014 3:21 PM PDTP office called to gretchen vann this request. If they call back please obtain a fax number to send chart notes to. Jamilah ctronically signed by Lauren Troy RN at 12/23/2014 3:22 PM PDTTelephone Encounter - Amelia Callaway - 12/23/2014 11:05 AM PDTReceived a call from Martinez's PCP's office. They state that they had placed an order for physical therapy for Martinez for education on how to use the standing frame that was ordered by Dr. Priest. [facility] and told that they would need to send more specific information and chart notes st ating what this therapy would be for. Bridger Wilhelm's office is requesting that Dr. Priest plac e this order and send his chart notes with these details. documented in this encounter Plan of Treatment [...] [place] | | | | | | [address] | | | | | | | [...]
--- OUTSIDE RECORDS SUMMARY | ~2019-11-15 | XMS | Encounter Summary ---
Demographics + + + | Address | [address] | | | [place] [address] | + + + | Home Phone [...] Team Providers + +------+ + | Care National Account Director Name | Role | Phone | [...] [place] | | | | | | [address] | | | | | | [phone] | | | +--------+ + + + [...] [place] | | | | | | [address] | | | | | | | | +--------+ + + + + documented as of this encounter Visit Diagnoses Not on filedocumented in this encounter"
--- OUTSIDE RECORDS SUMMARY | ~2019-11-15 | XMS | Encounter Summary ---
Demographics + + + | Address | [address] | | | [place] [address] | + + + | Home Phone [...] Author + + + | Author | [facility] | | | and [place] | + + + | Organization | [facility] | | [...] Team Providers + +------+ + | Care Internal Affairs Commander Name | Role | Phone | + [...] + + | 08/29/ | Emergency | [facility] | Kamar Doty, | Urinary catheter | | 2013 | | MED CTR EMERGENCY | MD [address] | change required | | | | CENTER [address] | [place] | (Primary Dx) | | | | [place] | [address] | | | | | [address] | | | | | | [phone] | | | +--------+ + + + [...] be sent through Care Everywhere.FLOYD ABAD, RAAD (NEW ZEALANDER)documented in this encounter Medications at Time of [...] 0 | /20 | | | (MYCOSTATIN) [id number] | | | | 14 | | [...] Doty MD - 08/29/2013 3:01 PM PDT [id number] Kamar Doty MD 08/29/13 [address]alobos MD - 08/29/2013 3:01 PM PDT [address] [address] EMERGENCY ROOM REPORT KAMAR DOTY MD Patient: MARTINEZ ABBASI Admitting: MR #: [id number] LOC: PT TYPE: Adm Date: 08/29/2013 : [...] male in no apparent distress. VITAL SIGNS: [place] rature 97.8, pulse 78, respirations 16, BP [...] Transcribed on 08/29/2013 21:17:29 by ms job# [id number] Confirmation #: [id number] signed by Kamar Doty MD at 08/30/2013 [...] | | | | | | [place] [facility] [place] | | | | | | [address] | | | | | | | | +--------+ + + + + documented as of this encounter Visit Diagnoses + + | Diagnosis | + + | Urinary catheter change required - Primary Fitting and adjustment of urinary device | + + documented in this encounter
--- OUTSIDE RECORDS SUMMARY | ~2019-11-15 | XMS | Encounter Summary ---
Demographics + + + | Address | [address] | | | [place] [address] | + + + | Home Phone [...] Providers + +------+ + | Care Health Information Specialist Name | Role | Phone | [...] | | | | OP [address] | [place] | | | | | [place] | [address] | | | | | [address] | | | | | | [phone] | | | +--------+ + + + [...] Ren, PT - 05/17/2016 10:12 AM [facility] OP [address] [place] [address] Physical Therapy Discharge Note This discharge is [...] [place] | | | | | | [address] | | | | | | | | +--------+ + + + + documented as of this encounter Visit Diagnoses Not on filedocumented in this encounter"
--- OUTSIDE RECORDS SUMMARY | ~2019-11-15 | XMS | Encounter Summary ---
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 Job ID# [id number] signed by Chris Priest MD at 08/19/2013 5:47 PM Jennifer Estrada RN - 08/19/2013 4:39 PM PDTC/o bilat leg spasms/spasticity, currently taking 2 tablets bacl ofen tid, but stated that rx has not being helping. Waiting for insurance to approve PT. OT therapy will start next week. P M Chris Ware MD - 08/19/2013 12:00 AM PDT [facility] [address] [place] [address] FAX: [phone] OFFICE VISIT PHYSICAL MEDICINE REHABILITATION PROGRESS NOTE [...] lower extremities. Approximately 30 minutes was spent cmza-qq-ymot today with Mr. Abbasi, over half of which was spent formulating and discussing his medical treatment plan. Thank you for allowing me to be involved in the care of your patient. If you have any quest ions regarding the care of Mr. Abbasi, please do not hesitate to call. Chris Priest Jr, MD GEM / PAP JOB #: [id number] cc: JANIE Byrnes-C P KERWINdomichela in this encounter Plan of Treatment +--------+ + + + + | Date | Type | Specialty | Care Team | Description | +--------+ + + + + | 11/19/ | Home Care | Home Health Services | Kayal Dior, | | | 2019 | Visit [...] Visit | and Rehabilitation | [address] | | | | | | [place] | | | | | | [address] | | | | | | | [...]
--- OUTSIDE RECORDS SUMMARY | ~2019-11-15 | XMS | Encounter Summary ---
Demographics + + + | Address | [address] | | | [place] [address] | + + + | Home Phone [...] Team Providers + +------+ + | Care Director Of [employer] Name | Role | Phone | + +------+ + | Edwar Wilhelm PA-C | PCP | | + +------+ + Encounter Details +--------+ + + + + | Date | Type | Department | Care Team | Description | +--------+ + + + + | 04/13/ | Documentati | [facility] | Della Ravi, | | | 2016 | on | MED CTR THERAPY PT | PT [address] | | | | | OP [address] | [place] | | | | | [place] | [address] | | | | | [address] | | | | | | [phone] | | | +--------+ + + + [...] Ren, PT - 04/13/2015 1:20 PM [facility] OP [address] [place] [address] Cancellation Date: 04/13/2015 Patient Information Patient Name: [...] [place] | | | | | | [address] | | | | | | | | +--------+ + + + + documented as of this encounter Visit Diagnoses Not on filedocumented in this encounter"
--- OUTSIDE RECORDS SUMMARY | ~2019-11-15 | XMS | Encounter Summary ---
Demographics + + + | Address | [address] | | | [place] [address] | + + + | Home Phone [...] Team Providers + +------+ + | Care Mainframe Consultant Name | Role | Phone | [...] Rehabilitatio | quadriplegia | [address] | | | | n | at C5-[address] | [place], | | | | | level (HCC) | [place], | [place] [address] | | | | | Impaired | [place] [address] | Phone: | | | | | mobility and | Phone: | [phone] | | | | | ADLs | [phone] | Fax: | | | | | Procedures | Fax: | [phone] | | | | | pt eval | [phone] | | +--------+ + + + + + Encounter Details +--------+---------+ + + + | Date | Type | Department | Care Team | Description | +--------+---------+ + + + | 04/08/ | Office | [facility] | Chris Priest, | Impaired mobility | | 2016 | Visit | MED CTR THERAPY PT | MD [address] | and activities of | | | | OP [address] | [place], [place] | daily living | | | | [place], [place] | [address] | (Primary Dx); | | | | [address] | | Impaired functional | | | | [phone] | Della Ravi, PT | mobility, balance, | | | | | [address] | gait, and endurance; | | | | | [place], [place] | Quadriplegia, | | | | | [address] | C5-C7, incomplete | | | | | | ([facility]); Posture | | | | | Igor [...] might be different from t he original. [facility] CTR THERAPY PT OP [address] [place] [address] Physical Therapy Daily Treatment Note Date: 04/08/2015 [...] Rehab Precautions Office Visit from 02/23/2015 in [facility] CTR THERAPY PT OP Rehab Precautions Precautions Spinal, Cervical Rehab Learning Style Office Visit from 02/23/2015 in [facility] CTR THERAPY PT OP Learning Style [...] [place] | | | | | | [address] | | | | | | | [...]
--- OUTSIDE RECORDS SUMMARY | ~2019-11-15 | XMS | Encounter Summary ---
Demographics + + + | Address | [address] | | | [place] [address] | + + + | Home Phone [...] + | Author | [facility] | | | and [place] | + + + | Organization | [facility] | | | [...] Team Providers + +------+ + | Care Regional Rehabilitation Director Name | Role | Phone | [...] | | | | OP [address] | [place] | | | | | [place] | [address] | | | | | [address] | | | | | | [phone] | | | +--------+ + + + [...] Ren, PT - 04/24/2015 12:55 PM [facility] OP [address] [place] [address] Cancellation/No Show Date: 04/24/2015 Patient Information Patient [...] [place] | | | | | | [id number] | | | | | | | | +--------+ + + + + documented as of this encounter Visit Diagnoses Not on filedocumented in this encounter"
--- OUTSIDE RECORDS SUMMARY | ~2019-11-15 | XMS | Encounter Summary ---
Demographics + + + | Address | [address] | | | [place] [address] | + + + | Home Phone [...] [facility] | | | and [place] | + + + | Organization | [facility] [...] Team Providers + +------+ + | Care Dietitian Consultant Name | Role | Phone | [...] + + | 06/12/ | Telephone | [facility] | Chris Priest, | Other | | 2014 | | PH[address]SIATRY [address] | [address] | | | | | [address] | [place] | | | | | [place] | [address] | | | | | [address] | | | | | | [phone] | | | +--------+ + + + [...] [place] | | | | | | [address] | | | | | | | | +--------+ + + + + documented as of this encounter Visit Diagnoses Not on filedocumented in this encounter
--- OUTSIDE RECORDS SUMMARY | ~2019-11-15 | XMS | Encounter Summary ---
Demographics + + + | Address | [address] | | | [place] [address] | + + + | Home Phone [...] Providers + +------+ + | Care Auto Painter Helper Name | Role | Phone | [...] + + | 06/12/ | Telephone | [facility] | Chris Priest, | Other | | 2014 | | PHYSIATRY [address] | [address] | | | | | [address] | [place] | | | | | [place] | [address] | | | | | [address] | | | | | | [phone] | | | +--------+ + + + [...] [place] | | | | | | [address] | | | | | | | | +--------+ + + + + documented as of this encounter Visit Diagnoses Not on filedocumented in this encounter
--- OUTSIDE RECORDS SUMMARY | ~2019-11-15 | XMS | Encounter Summary ---
Demographics + + + | Address | [address] | | | [place] [address] | + + + | Home Phone [...] Author + + + | Author | [facility] | | | and [place] | + + + | Organization | [facility] | | | and [...] Team Providers + +------+ + | Care Casting Associate Name | Role | Phone | + +------+ + | Edwar Wilhelm PA-C | PCP | | + +------+ + Encounter Details +--------+ + + + + | Date | Type | Department | Care Team | Description | +--------+ + + + + | 02/05/ | Documentati | [facility] | Della Ravi, | | | 2015 | on | MED CTR THERAPY PT | PT [address] | | | | | OP [address] | [place] | | | | | [place] | [address] | | | | | [address] | | | | | | [phone] | | | +--------+ + + + [...] Ren, PT - 02/05/2015 1:06 PM [facility] OP [address] [place] [address] Cancellation Date: 02/05/2015 Patient Information Patient Name: [...] [place] | | | | | | [address] | | | | | | | | +--------+ + + + + documented as of this encounter Visit Diagnoses Not on filedocumented in this encounter
--- OUTSIDE RECORDS SUMMARY | ~2019-11-15 | XMS | Encounter Summary ---
Demographics + + + | Address | [address] | | | [place] [address] | + + + | Home Phone [...] | Author | [facility] | | | and [place] | + + + | Organization | [facility] | | [...] Team Providers + +------+ + | Care Hide Salter Name | Role | Phone | + +------+ + | Edwar Wilhelm PA-C | PCP | | + +------+ + Encounter Details +--------+ + + + + | Date | Type | Department | Care Team | Description | +--------+ + + + + | 04/13/ | Documentati | [facility] | Della Ravi, | | | 2016 | on | MED CTR THERAPY PT | PT [address] | | | | | OP [address] | [place] | | | | | [place] | [address] | | | | | [address] | | | | | | [phone] | | | +--------+ + + + [...] Ren, PT - 04/13/2015 1:20 PM [facility] OP [address] [place] [address] Cancellation Date: 04/13/2015 Patient Information Patient Name: [...] [place] | | | | | | [address] | | | | | | | | +--------+ + + + + documented as of this encounter Visit Diagnoses Not on filedocumented in this encounter"
--- OUTSIDE RECORDS SUMMARY | ~2019-11-15 | XMS | Encounter Summary ---
Demographics + + + | Address | [address] | | | [place] [address] | + + + | Home Phone [...] Author + + + | Author | [facility] | | | and [place] | + + + | Organization | [facility] | | | [...] Team Providers + +------+ + | Care Machine Ceramic Coater Name | Role | Phone | + [...] | | | | OP [address] | [place] | | | | | [place] | [address] | | | | | [address] | | | | | | [phone] | | | +--------+ + + + [...] 10[facility]12 AM [facility] OP [address] [place] [address] Physical Therapy Discharge Note This discharge is [...] [place] | | | | | | [address] | | | | | | | | +--------+ + + + + documented as of this encounter Visit Diagnoses Not on filedocumented in this encounter"
--- OUTSIDE RECORDS SUMMARY | ~2019-11-15 | XMS | Encounter Summary ---
Demographics + + + | Address | [address] | | | [place] [address] | + + + | Home Phone [...] Author + + + | Author | [facility] | | | and [place] | + + + | Organization | [facility] | | | [...] Providers + +------+ + | Care Sales Assistant Entertainment [employer] Media Name | Role | Phone | + [...] Rehabilitatio | quadriplegia | [address] | | | | n | at C5-[address] | [address] | [place], | | | | | level (HCC) | [place], | [place] [address] | | | | | Impaired | [place] [address] | Phone: | | | | | mobility and | Phone: | [phone] | | | | | ADLs | [phone] | Fax: | | | | | Procedures | Fax: | [phone] | | | | | pt eval | [phone] | | +--------+ + + + + + Encounter Details +--------+---------+ + + + | Date | Type | Department | Care Team | Description | +--------+---------+ + + + | 03/12/ | Office | [facility] | Chris Priest, | Impaired mobility | | 2016 | Visit | MED CTR THERAPY PT | MD [address] | and activities of | | | | OP [address] | [place], [place] | daily living | | | | [place], [place] | [address] | (Primary Dx); | | | | [address] | | Impaired functional | | | | [phone] | Della Ravi, PT | mobility, balance, | | | | | [address] | gait, and endurance; | | | | | [place], [place] | Quadriplegia, | | | | | [address] | C5-C7, incomplete | | | | | | ([facility]); Posture | | | | | | [...] might be different from t he original. [facility] CTR THERAPY PT OP [address] [place] [address] Physical Therapy Daily Treatment Note Date: 03/12/2015 [...] Rehab Precautions Office Visit from 02/23/2015 in [facility] CTR THERAPY PT OP Rehab Precautions Precautions Spinal, Cervical Rehab Learning Style Office Visit from 02/23/2015 in [facility] CTR THERAPY PT OP Learning [...] [place] | | | | | | [address] | | | | | | | [...]
--- OUTSIDE RECORDS SUMMARY | ~2019-11-15 | XMS | Encounter Summary ---
Demographics + + + | Address | [address] | | | [place] [address] | + + + | Home Phone [...] Team Providers + +------+ + | Care Band Sawing Machine Operator Name | Role | Phone [...] | | | | at C5-6 | [address] | | | | | | level (HCC) | [place], | | | | | | Spasm | [place] [address] | | | | | | Medication | Phone: | | | | | | overuse | [phone] | | | | | | headache | Fax: | | | | | | | [phone] | | +--------+ + + + + [...] Rehabilitatio | quadriplegia | [address] | | | | n | at C5-[address] | [address] | [place], | | | | | level (HCC) | [place], | [place] [address] | | | | | Impaired | [place] [address] | Phone: | | | | | mobility and | Phone: | [phone] | | | | | ADLs | [phone] | Fax: | | | | | Procedures | Fax: | [phone] | | | | | pt eval | [phone] | | +--------+ + + + + + Encounter Details +--------+---------+ + + + | Date | Type | Department | Care Team | Description | +--------+---------+ + + + | 01/13/ | Office | [facility] [place] | Chris Aguirre, | Incomplete | | 2014 | Visit | PHYSIATRY [address] | [address] | quadriplegia at C6 | | | | [address] | [place], [place] | level (HCC) (Primary | | | | [place], [place] | [address] | Dx); Spasm; | | | | [address] | | Neurogenic bowel; | | | | [phone] | | Neurogenic bladder; | | | [...] MD - 01/13/2015 6:31 PM PST [facility] PHYSIATRY [address] [facility] [address] OFFICE NOTE CHRIS AGUIRRE JR, MD Patient: MARTINEZ ABBASI Admitting: MR #: [id number] LOC: PT TYPE: Adm Date: 01/13/2015 : [...] has not yet followed up with the termite treater helper. Today we reviewed the [facility] upper endoscopy report. We discussed that by the report esophagus appeared nor mal, there may have been some erythematous gastric lining. We discussed that biopsies were taken, the biopsy results are not available for review. He is advised to follow up with mickey mccain termite treater helper. We discussed that he may have some [...] Gabapentin 300 mg 3 times per day. Jefferson 10/325 one tablet 4 times per day, [...] difficulty accessing the shower because of his InRadioe nt shower set up. PHYSICAL EXAMINATION: VITAL [...] He is advised to follow up with termite treater helper. Abdominal ultrasound of right upper quadrant, 12/22/2014 [...] return to outpatient physical therapy here at [facility], they can do some standing frame education for him. They can also review his mov ements and strength to see if there is any ways that he would benefit from continued therap y strengthening upper extremities to improve mobility and transfers. Neurogenic bladder, he will continue current management with suprapubic catheter. He has been asked to follow up with the termite treater helper regarding his complaint of epigastric p ain. [...] requesting a pain clinic consul tation at [facility] to evaluate the patient and determine [...] he will steven ve a consult at [facility] to determine whether or not [...] 01/13/2015 18:31:56 Transcribed on 01/14/2015 08:49:10 by [facility] job# [id number] Confirmation #: [id number] cc: EDWAR GREEN[place] PAC [facility] Chris Garcia MD - 01/13/2015 5:08 PM PSTThis office note has been dictated. Job ID# [id number] signed by Chris Aguirre MD at 01/13/2015 [...] [place] | | | | | | [address] | | | | | | | [...] | Referral | | | level ([facility]) | | | | | | Impaired mobility | | | | | | and ADLs | | + + +--------+ + + | Ambulatory referral | Outpatient | Routin | Incomplete | Ordered: 01/13/2015 | | to Pain Clinic | Referral | e | quadriplegia at C6 | | | | | | level ([facility]) Spasm | | | | | | Medication overuse | | | | | | headache | | + + +--------+ + + documented as of this encounter Visit Diagnoses + + | Diagnosis | + + | Incomplete quadriplegia at C6 level ([facility]) - Primary Quadriplegia, C5-C7, incomplete | + [...]
--- OUTSIDE RECORDS SUMMARY | ~2019-11-15 | XMS | Encounter Summary ---
Demographics + + + | Address | [address] | | | [place] [address] | + + + | Home Phone [...] | [facility] | | | and [place] | + + + | Organization | [facility] | | | [...] Team Providers + +------+ + | Care Host And Hostess Name | Role | Phone | + +------+ + | Edwar Wilhelm PA-C | PCP | | + +------+ + Encounter Details +--------+ + + + + | Date | Type | Department | Care Team | Description | +--------+ + + + + | 02/05/ | Documentati | [facility] | Della Ravi, | | | 2015 | on | MED CTR THERAPY PT | PT [address] | | | | | OP [address] | [place] | | | | | [place] | [address] | | | | | [address] | | | | | | [phone] | | | +--------+ + + + [...] PT - 02/05/2015 [facility] OP [address] [place] [address] Cancellation Date: 02/05/2015 Patient Information Patient Name: [...] [place] | | | | | | [address] | | | | | | | | +--------+ + + + + documented as of this encounter Visit Diagnoses Not on filedocumented in this encounter
--- OUTSIDE RECORDS SUMMARY | ~2019-11-15 | XMS | Encounter Summary ---
Demographics + + + | Address | [address] | | | [place] [address] | + + + | Home Phone | | + + + | Preferred Language | Unknown | + + + | Marital Status | Single | + + + | Orthodoxy Affiliation | 1074 | + + + [...] Team Providers + +------+ + | Care Quill Stripper Name | Role | Phone | + [...] [address] | | | | n | ([facility]) | [address] | [address] | | | | | | [place], | [place], | | | | | | [place] [address] | [place] [address] | | | | | | Phone: | Phone: | | | | | | [phone] | [phone] | | | | | | Fax: | Fax: | | | | | | [phone] | [phone] | +--------+ + + + + + [...] + + | 12/23/ | Telephone | [facility] | Chris Priest, | Referral | | 2014 | | PHYSIATRY [address] | MD [address] | | | | | [address] | [place] | | | | | [place] | [address] | | | | | [address] | | | | | | [phone] | | | +--------+ + + + [...] [facility] and told that they would need [...] | | | [place] | | | | | | [address] | | | | | | | [...]
--- OUTSIDE RECORDS SUMMARY | ~2019-11-15 | XMS | Encounter Summary ---
Demographics + + + | Address | [address] | | | [place] [address] | + + + | Home Phone [...] + + + | Author | [facility] | | | and [place] | + + + | Organization | [facility] | | | [...] Team Providers + +------+ + | Care Staffing Rn Name | Role | Phone | + +------+ + | Edwar Wilhelm PA-C | PCP | | + +------+ + Encounter Details +--------+ + + + + | Date | Type | Department | Care Team | Description | +--------+ + + + + | 12/22/ | Hospital | [facility] | Jonathan Avendaño MD | Abdominal pain, | | 2015 | Encounter | MED CTR ULTRASOUND | [address] | right upper quadrant | | | | [address] [place] | [place], [place] | | | | | [place] | [address] | | | | | [address] | [phone] | | | | | [phone] | | | | | | | [...] 0 | 03/22/19 | | | (MYCOSTATIN) [id number] | | | | 14 | | [...] [place] | | | | | | [address] | | | | | | | [...] RUQ pain, rule out hepatomegaly COMPARISON:None | [facility] | | FINDINGS: Liver:The liver [...] + + + + + | [facility] | [address] | [place] | [phone] | | [facility] | | [address] | | | - IMAGING | | | | + + + + + documented in this encounter Visit Diagnoses + + | Diagnosis | + + | Abdominal pain, right upper quadrant | + + documented in this encounter"
--- OUTSIDE RECORDS SUMMARY | ~2019-11-15 | XMS | Encounter Summary ---
Demographics + + + | Address | [address] | | | [place] [address] | + + + | Home Phone [...] Author + + + | Author | [facility] | | | and [place] | + + + | Organization | [facility] | | [...] Providers + +------+ + | Care Manager Plumbing Name | Role | Phone | + +------+ + | Edwar Wilhelm PA-C | PCP | | + +------+ + Encounter Details +--------+ + + + + | Date | Type | Department | Care Team | Description | +--------+ + + + + | 04/10/ | Documentati | [facility] | Della Ravi, | | | 2016 | on | MED CTR THERAPY PT | PT [address] | | | | | OP [address] | [place] | | | | | [place] | [address] | | | | | [address] | | | | | | [phone] | | | +--------+ + + + [...] Ren, PT - 04/10/2015 11:24 AM [facility] OP [address] [place] [address] Cancellation/No Show Date: 04/10/2015 Patient Information Patient [...] [place] | | | | | | [id number] | | | | | | | | +--------+ + + + + documented as of this encounter Visit Diagnoses Not on filedocumented in this encounter"
--- OUTSIDE RECORDS SUMMARY | ~2019-11-15 | XMS | Encounter Summary ---
Demographics + + + | Address | [address] | | | [place] [address] | + + + | Home Phone [...] + | Author | [facility] | | | and [place] | + + + | Organization | [facility] | | | and [...] Team Providers + +------+ + | Care Hay Stacker Operator Name | Role | Phone | [...] [place] | | | | | | [address] | | | | | | [phone] | | | +--------+ + + + [...] | Visit | and Rehabilitation | [place] [address] | | | | | | [place] | | | | | | [address] | | | | | | | | +--------+ + + + + documented as of this encounter Visit Diagnoses Not on filedocumented in this encounter"
--- OUTSIDE RECORDS SUMMARY | ~2019-11-15 | XMS | Encounter Summary ---
Demographics + + + | Address | [address] | | | [place] [address] | + + + | Home Phone [...] Team Providers + +------+ + | Care Electric Needle Specialist Name | Role | Phone | [...] + + | 10/01/ | Telephone | [facility] | Chris Priest, | Other | | 2014 | | PHYSIATRY [address] | [address] | | | | | [address] | [place] | | | | | [place] | [address] | | | | | [address] | | | | | | [phone] | | | +--------+ + + + [...] a s tanding station be sent to [facility]. documented in this encounter Plan of Treatment [...] [place] | | | | | | [address] | | | | | | | | +--------+ + + + + documented as of this encounter Visit Diagnoses Not on filedocumented in this encounter"
--- OUTSIDE RECORDS SUMMARY | ~2019-11-15 | XMS | Encounter Summary ---
Demographics + + + | Address | [address] | | | [place] [address] | + + + | Home Phone [...] Team Providers + +------+ + | Care Household Appliance Installer Name | Role | Phone | [...] [place] | | | | | | [address] | | | | | | [phone] | | | +--------+ + + + [...] any question 1-6 is yes. Consult with manager gallery prior to visit. S Pt with stage [...] [place] | | | | | | [address] | | | | | | | | +--------+ + + + + documented as of this encounter Visit Diagnoses Not on filedocumented in this encounter Home Health Visit - Care Plan + + | Visit Type - SN - REPEAT VISIT | | Discipline - Shelter | + + + + +--------+--------+-------+ + | Problem | Description | Start | Status | Goals | Interventio | | | | Date | | | ns | + + +--------+--------+-------+ + | HH Other Wound | Upper right back | | | - | 1 problem | | Disciplines: | scab healed over | | Active | | | | Shelter | Left buttock hx of | 020 [...] | | Active | | | | Shelter | | 020 | | | interventio [...] | | | | n | | Shelter | | | | | scheduled/d | | | | | | | ocumented | | | | | | | in this | | | | | | | visit | + + +--------+--------+-------+ + | Wound Management | Right buttock | | | - | 1 problem | | Disciplines: | | | Active | | | | Shelter | | 020 | | | interventio [...]
--- OUTSIDE RECORDS SUMMARY | ~2019-11-15 | XMS | Encounter Summary ---
Demographics + + + | Address | [address] | | | [place] [address] | + + + | Home Phone [...] Team Providers + +------+ + | Care Final Block Press Operator Name | Role | Phone | + +------+ + | Edwar Wilhelm PA-C | PCP | | + +------+ + Encounter Details +--------+ + + + + | Date | Type | Department | Care Team | Description | +--------+ + + + + | 04/10/ | Documentati | [facility] | Della Ravi, | | | 2016 | on | MED CTR THERAPY PT | PT [address] | | | | | OP [address] | [place] | | | | | [place] | [address] | | | | | [address] | | | | | | [phone] | | | +--------+ + + + [...] Ren, PT - 04/10/2015 11:24 AM [facility] OP [address] [place] [address] Cancellation/No Show Date: 04/10/2015 Patient Information Patient [...] [place] | | | | | | [address] | | | | | | | | +--------+ + + + + documented as of this encounter Visit Diagnoses Not on filedocumented in this encounter"
--- OUTSIDE RECORDS SUMMARY | ~2019-11-15 | XMS | Encounter Summary ---
Demographics + + + | Address | [address] | | | [place] [address] | + + + | Home Phone [...] Team Providers + +------+ + | Care Bean Viner Name | Role | Phone | + [...] [place] | | | | | | [address] | | | | | | [phone] | | | +--------+ + + + [...] any question 1-6 is yes. Consult with welfare centre manager prior to visit. S. Pt has [...] to provide after that. R Continue POC, [facility] umented in this encounter Plan of Treatment [...] | | | | | [place] | | | | | | [address] | | | | | | | | +--------+ + + + + documented as of this encounter Visit Diagnoses Not on filedocumented in this encounter Home Health Visit - Care Plan + + | Visit Type - SN - REPEAT VISIT | | Discipline - Nursing Home | + + + + +--------+--------+-------+ + | Problem | Description | Start | Status | Goals | Interventio | | | | Date | | | ns | + + +--------+--------+-------+ + | HH Other Wound | Upper right back | | | - | 1 problem | | Disciplines: | scab healed over | | Active | | | | Nursing Home | Left buttock hx of | [...] 020 | | | interventio | | Nursing Home | | | | | n [...] | | Active | | | | Nursing Home | | 020 | | | [...] | | | | n | | Nursing Home | | | | | scheduled/d | | | | | | | ocumented | | | | | | | in this | | | | | | | visit | + + +--------+--------+-------+ + | Wound Management | Right buttock | | | - | 1 problem | | Disciplines: | | | Active | | | | Nursing Home | | 020 | | | [...]
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
--- OUTSIDE RECORDS SUMMARY | ~2019-11-15 | XMS | Encounter Summary ---
Demographics + + + | Address | [address] | | | [place] [address] | + + + | Home Phone [...] Author | [facility] | | | and [place] | + + + | Organization | [facility] | | | [...] Team Providers + +------+ + | Care Medical Doctor Md Name | Role | Phone | + [...] Rehabilitatio | quadriplegia | [address] | | | | n | at C5-[address] | [address] | [place], | | | | | level (HCC) | [place], | [place] [address] | | | | | Impaired | [place] [address] | Phone: | | | | | mobility and | Phone: | [phone] | | | | | ADLs | [phone] | Fax: | | | | | Procedures | Fax: | [phone] | | | | | pt eval | [phone] | | +--------+ + + + + + Encounter Details +--------+---------+ + + + | Date | Type | Department | Care Team | Description | +--------+---------+ + + + | 03/12/ | Office | [facility] | Chris Priest, | Impaired mobility | | 2016 | Visit | MED CTR THERAPY PT | MD [address] | and activities of | | | | OP [address] | [place], [place] | daily living | | | | [place], [place] | [address] | (Primary Dx); | | | | [address] | | Impaired functional | | | | [phone] | Della Ravi, PT | mobility, balance, | | | | | [address] | gait, and endurance; | | | | | [place], [place] | Quadriplegia, | | | | | [address] | C5-C7, incomplete | | | | [...] might be different from t he original. [facility] CTR THERAPY PT OP [address] [place] [address] Physical Therapy Daily Treatment Note Date: 03/12/2015 [...] Precautions Office Visit from 02/23/[address] [facility] CTR THERAPY PT OP Rehab Precautions Precautions Spinal, Cervical Rehab Learning Style Office Visit from 02/23/[address] [facility] CTR THERAPY PT OP Learning [...] [place] | | | | | | [address] | | | | | | | [...]
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
--- OUTSIDE RECORDS SUMMARY | ~2019-11-15 | XMS | Encounter Summary ---
Demographics + + + | Address | [address] | | | [place] [address] | + + + | Home Phone [...] Providers + +------+ + | Care Wire Bound Box Machine Helper Name | Role | Phone | [...] | | | | | [address] [facility] | | | | | | [place], [place] | | | | | | [address] | | | | | | [phone] | | | +--------+ + + + [...] [place] | | | | | | [address] | | | | | | | | +--------+ + + + + documented as of this encounter Visit Diagnoses Not on filedocumented in this encounter
--- OUTSIDE RECORDS SUMMARY | ~2019-11-15 | XMS | Encounter Summary ---
Demographics + + + | Address | [address] | | | [place] [address] | + + + | Home Phone [...] Author + + + | Author | [facility] | | | and [place] | + + + | Organization | [facility] | | | [...] Providers + +------+ + | Care Radio Frequency Engineer Name | Role | Phone | [...] Rehabilitatio | quadriplegia | [address] | | | | n | at C[address] | [place], | | | | | level (HCC) | [place], | [place] [address] | | | | | Impaired | [place] [address] | Phone: | | | | | mobility and | Phone: | [phone] | | | | | ADLs | [phone] | Fax: | | | | | Procedures | Fax: | [phone] | | | | | pt eval | [phone] | | +--------+ + + + + + Encounter Details +--------+---------+ + + + | Date | Type | Department | Care Team | Description | +--------+---------+ + + + | 07/01/ | Office | [facility] | Chris Priest, | Impaired mobility | | 2016 | Visit | MED CTR THERAPY PT | MD [address] | and activities of | | | | OP [address] | [place], [place] | daily living | | | | [place], [place] | [address] | (Primary Dx); | | | | [address] | | Impaired functional | | | | [phone] | Tori Luis, PT | mobility, balance, | | | | | [address] | gait, and endurance; | | | | | [place], [place] | Quadriplegia, | | | | | [address] | C5-C7, incomplete | | | | [...] might be different fro m the original. [facility] CTR THERAPY PT OP [address] [place] [address] Physical Therapy Daily Treatment Note Date: 07/02/2015 [...] Rehab Precautions Office Visit from 02/23/2015 in [facility] CTR THERAPY PT OP Rehab Precautions Precautions Spinal, Cervical Rehab Learning Style Office Visit from 02/23/2015 in [facility] THERAPY PT OP Learning Style Patient's [...] Luis PT, 07/02/2015 17:03 Patient Name: Martinez [facility] II/: 1970/ documented in this en counter [...] Visit | and Rehabilitation | [address] | | | | | | [place] | | | | | | [address] | | | | | | | [...]
--- OUTSIDE RECORDS SUMMARY | ~2019-11-15 | XMS | Encounter Summary ---
Demographics + + + | Address | [address] | | | [place] [address] | + + + | Home Phone [...] Team Providers + +------+ + | Care Fine Hairer Name | Role | Phone | + [...] + + | 08/01/ | Emergency | [facility] | Mikal Dillard, | Catheter (urine) | | 2013 | | MED CTR EMERGENCY | MD [address] | change required | | | | CENTER [address] | [place] | (Primary Dx) | | | | [place] | [address] | | | | | [address] | | | | | | [phone] | | | +--------+ + + + [...] be sent through Care Everywhere.BARRIENTOS CATHETER, CARE (TURKMEN)documented in this encounter Medications at Time of [...] 0 | 03/22/19 | | | (MYCOSTATIN) [id number] | | | | 14 | | [...] changed every month. He was seen at [facility] and sent here f or his Barrientos [...] (*) Clear PH UA 7.5 5.0-8.0 Specific Roland 1.025 1.001-1.030 PROTEIN UA 300 mg/dL (*) [...] Code Fresh Frozen Plasma Thawed UNIT # [id number] UNIT ABO O UNIT RH POS Unit [...] Code Fresh Frozen Plasma Thawed UNIT # [id number] UNIT ABO O UNIT RH POS Unit Status Transfused URINALYSIS Component Value Range COLOR Yellow Light Yellow, Yellow CLARITY Clear Clear PH UA 5.5 5.0-8.0 Specific Roland <=1.005 1.001-1.030 PROTEIN UA Negative Negative, Trace, [...] Code Fresh Frozen Plasma Thawed UNIT # [id number] UNIT ABO O UNIT RH POS Unit [...] Code Fresh Frozen Plasma Thawed UNIT # [id number] UNIT ABO O UNIT RH POS Unit [...] Notes Plan of Care - GHADA GUY WAAK - 08/02/2013 12:00 AM PDT D Triage Notes - Babita Land RN - 08/01/2013 10:35 [facility]. Routine [...] Visit | and Rehabilitation | [facility] | | | | | [place], [place] | | | | | | [address] | | | | | | | | +--------+ + + + + documented as of this encounter Visit Diagnoses + + | Diagnosis | + + | Catheter (urine) change required - Primary Fitting and adjustment of urinary device | + + documented in this encounter"
--- OUTSIDE RECORDS SUMMARY | ~2019-11-15 | XMS | Encounter Summary ---
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 | Visit | PH[address]SIATRY [address] | MD [address] | cord lesion at C5-C7 | | | | [address] | [place] | level, subsequent | | | | [place] | [address] | encounter (Primary | | | | [address] | | Dx); Pressure ulcer | | | | [phone] | | of buttock, | | | | | | unstageable, left | | | | | | ([facility]); Pressure | | | | | | ulcer, buttock, | | | | | | right, unstageable | | | | | | ([facility]); Abdominal | | | | | | [...] - 08/19/2013 5:16 PM PDTA recommendations for [facility] nursing has been sent to Edwar Wilhelm [...] office note has been dictated. Job ID# [id number] signed by Chris Priest MD at 08/19/2013 5:47 PM Jennifer Estrada RN - 08/19/2013 4:39 PM PDTC/o bilat leg spasms/spasticity, currently taking 2 tablets bacl ofen tid, but stated that rx has not being helping. Waiting for insurance to approve PT. OT therapy will start next week. P M Chris Ware MD - 08/19/2013 12:00 AM PDT PHYSICAL MEDICINE AND REHAB [address] [place] [address] FAX: [phone] OFFICE VISIT PHYSICAL MEDICINE REHABILITATION PROGRESS NOTE [...] lower extremities. Approximately 30 minutes was spent [id number] today with Mr. Abbasi, over half of which was spent formulating and discussing his medical treatment plan. Thank you for allowing me to be involved in the care of your patient. If you have any quest ions regarding the care of Mr. Abbasi, please do not hesitate to call. Chris Priest Jr, MD GEM / PAP JOB #: [id number] cc: JANIE Byrnes-C P KERWINdomichela in this [...] Visit | and Rehabilitation | [address] | | | | | | [place] | | | | | | [address] | | | | | | | [...]
--- OUTSIDE RECORDS SUMMARY | ~2019-11-15 | XMS | Encounter Summary ---
Demographics + + + | Address | [address] | | | [place] [address] | + + + | Home Phone [...] Providers + +------+ + | Care Senior Director Of [employer] Solutions Name | Role | Phone | + [...] + + | 07/26/ | Telephone | [facility] | Chris Priest, | Referral (Follow up) | | 2013 | | PHYSIATRY [address] | MD [address] | | | | | [address] | [place] | | | | | [place] | [address] | | | | | [address] | | | | | | [phone] | | | +--------+ + + + [...] urgent. Notified pt that our urologist in [facility] is booking until November, bu t Dr. Salgado from [facility] is booking in middle of September. Informed [...] 12/24/ | Office | Physical Medicine | Chirs Priest, | | | 2019 | Visit | and Rehabilitation | MD [address] | | | | | | [place] | | | | | | [address] | | | | | | | | +--------+ + + + + documented as of this encounter Visit Diagnoses Not on filedocumented in this encounter"
--- OUTSIDE RECORDS SUMMARY | ~2019-11-15 | XMS | Encounter Summary ---
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 | Role | Phone | + [...] Rehabilitatio | quadriplegia | [address] [place] | | | | n | at C[address] | [address] | [place], | | | | | level (HCC) | [place], | [place] [address] | | | | | Impaired | [place] [address] | Phone: | | | | | mobility and | Phone: | [phone] | | | | | ADLs | [phone] | Fax: | | | | | Procedures | Fax: | [phone] | | | | | pt eval | [phone] | | +--------+ + + + + + Encounter Details +--------+---------+ + + + | Date | Type | Department | Care Team | Description | +--------+---------+ + + + | 06/17/ | Office | [facility] | Chris Priest, | Impaired mobility | | 2016 | Visit | MED CTR THERAPY PT | MD [address] | and activities of | | | | OP [address] | [place] | daily living | | | | [place] | [address] | (Primary Dx); | | | | [address] | | Impaired functional | | | | [phone] | Tori Luis, PT | mobility, balance, | | | | | [address] | gait, and endurance; | | | | | [place], [place] | Quadriplegia, | | | | | [address] | C5-C7, incomplete | | | | [...] might be different fro m the original. [facility] CTR THERAPY PT OP [address] [place] [address] Physical Therapy Daily Treatment Note Date: 06/18/2015 [...] Rehab Precautions Office Visit from 02/23/2015 in [facility] CTR THERAPY PT OP Rehab Precautions Precautions Spinal, Cervical Rehab Learning Style Office Visit from 02/23/2015 in [facility] CTR THERAPY PT OP Learning [...] [place] | | | | | | [address] | | | | | | | [...]
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
--- OUTSIDE RECORDS SUMMARY | ~2019-11-15 | XMS | Encounter Summary ---
Demographics + + + | Address | [address] | | | [place] [address] | + + + | Home Phone [...] Providers + +------+ + | Care Insurance Sales Executive Name | Role | Phone | + [...] | | | | OP [address] | [place] | | | | | [place] | [address] | | | | | [address] | | | | | | [phone] | | | +--------+ + + + [...] PM SHABBIR spoke to Kendall at [facility] who reporte d that they received [...] [place] | | | | | | [address] | | | | | | | [...]
--- OUTSIDE RECORDS SUMMARY | ~2019-11-15 | XMS | Encounter Summary ---
Demographics + + + | Address | [address] | | | [place] [address] | + + + | Home Phone | | + + + | Preferred Language | Unknown | + + + | Marital Status | Single | + + + | Sikhism Affiliation | [id number] | + + + [...] Team Providers + +------+ + | Care Delivery Motorcycle Driver Name | Role | Phone | [...] [place] | | | | | | [address] | | | | | | [phone] | | | +--------+ + + + [...] question 1-6 is yes. Consult with manager continuous improvement prior to visit. S Incomplete quadriplegia with [...] abdomen with betadine and inserted new 18 portuguese 10 c c catheter without resisitance. Immediate [...] | | | [place] | | | | | | [id number] | | | | | | | [...]
--- OUTSIDE RECORDS SUMMARY | ~2019-11-15 | XMS | Encounter Summary ---
Demographics + + + | Address | [address] | | | [place] [address] | + + + | Home Phone [...] Team Providers + +------+ + | Care Continuous Mining Operator Name | Role | Phone | + +------+ + | Edwar Wilhelm PA-C | PCP | | + +------+ + Encounter Details +--------+ + + + + | Date | Type | Department | Care Team | Description | +--------+ + + + + | 05/05/ | Documentati | [facility] | Della Ravi, | | | 2016 | on | MED CTR THERAPY PT | PT [address] | | | | | OP [address] | [place] | | | | | [place] | [address] | | | | | [address] | | | | | | [phone] | | | +--------+ + + + [...] Ren, PT - 05/06/2015 4:52 PM [facility] OP [address] [place] [address] Cancellation Date: 05/06/2015 Patient Information Patient Name: [...] [place] | | | | | | [id number] | | | | | | | | +--------+ + + + + documented as of this encounter Visit Diagnoses Not on filedocumented in this encounter"
--- OUTSIDE RECORDS SUMMARY | ~2019-11-15 | XMS | Encounter Summary ---
Demographics + + + | Address | [address] | | | [place] [address] | + + + | Home Phone [...] | + + +---------+ + | Iraida Touer | ECON | Unknown | | + + +---------+ + | srinath Abbasi | ECON | Unknown | | + + +---------+ + Care Team Providers + +------+ + | Care Coil Connector Repairer Name | Role | Phone | [...] Rehabilitatio | quadriplegia | [address] | | | | n | at C[address] | [address] | [place], | | | | | level (HCC) | [place], | [place] [address] | | | | | Impaired | [place] [address] | Phone: | | | | | mobility and | Phone: | [phone] | | | | | ADLs | [phone] | Fax: | | | | | Procedures | Fax: | [phone] | | | | | pt eval | [phone] | | +--------+ + + + + + Encounter Details +--------+---------+ + + + | Date | Type | Department | Care Team | Description | +--------+---------+ + + + | 03/24/ | Office | [facility] | Chris Priest, | Impaired mobility | | 2016 | Visit | MED CTR THERAPY PT | MD [address] | and activities of | | | | OP [address] | [place], [place] | daily living | | | | [place], [place] | [address] | (Primary Dx); | | | | [address] | | Impaired functional | | | | [phone] | Della Ravi, PT | mobility, balance, | | | | | [address] | gait, and endurance; | | | | | [place], [place] | Quadriplegia, | | | | | [address] | C5-C7, incomplete | | | | | | ([facility]); Posture | | | | | Claudia Bragg, | imbalance; Neck | | | | | BUSINESS PROGRAMMER | pain; Bilateral | | | | [...] might be different from t he original. [facility] CTR THERAPY PT OP [address] [place] [address] Physical Therapy Daily Treatment Note Date: 03/24/2015 [...] Rehab Precautions Office Visit from 02/23/2015 in [facility] CTR THERAPY PT OP Rehab Precautions Precautions Spinal, Cervical Rehab Learning Style Office Visit from 02/23/2015 in [facility] CTR THERAPY PT OP Learning Style [...] [place] | | | | | | [address] | | | | | | | [...]
--- OUTSIDE RECORDS SUMMARY | ~2019-11-15 | XMS | Encounter Summary ---
Demographics + + + | Address | [address] | | | [place] [address] | + + + | Home Phone [...] Team Providers + +------+ + | Care Paradichlorobenzene Machine Operator Name | Role | Phone | + +------+ + | Edwar Wilhelm PA-C | PCP | | + +------+ + Encounter Details +--------+ + + + + | Date | Type | Department | Care Team | Description | +--------+ + + + + | 05/12/ | Documentati | [facility] | Della Ravi, | | | 2016 | on | MED CTR THERAPY PT | PT [address] | | | | | OP [address] | [place] | | | | | [place] | [address] | | | | | [address] | | | | | | [phone] | | | +--------+ + + + [...] Ren, PT - 05/13/2015 4:59 PM [facility] OP [address] [place] [address] Cancellation Date: 05/13/2015 Patient Information Patient Name: Martinez Abbasi II Date of : 1970 Age: 44 y.o. Reason for missed visit: Pt called to cancel due to having a mirCritiSenseaine Phone call placed: yes - no answer [...] [place] | | | | | | [address] | | | | | | | | +--------+ + + + + documented as of this encounter Visit Diagnoses Not on filedocumented in this encounter"
--- OUTSIDE RECORDS SUMMARY | ~2019-11-15 | XMS | Encounter Summary ---
Demographics + + + | Address | [address] | | | [place] [address] | + + + | Home Phone [...] Team Providers + +------+ + | Care Bioengineer Name | Role | Phone | + [...] + + | 06/04/ | Emergency | [facility] | Eliu Herrera | UTI (urinary tract | | 2013 | | MED CTR EMERGENCY | Harjit Colorado MD | infection) due to | | | | CENTER [address] | [address] | urinary indwelling | | | | [place], [place] | [place] | Hancock catheter, | | | | [address] | [address] | initial encounter | | | | [phone] | | (HCC) (Primary Dx); | | | | | | Cough; Paraplegia | | | | | | following spinal | | | | | | cord injury (HCC) | +--------+ + + + + [...] Care Everywhere.UNDERSTANDING U RINARY TRACT INFECTIONS (UTIS) (NEPALI)documented in this encounter Medications at Time of [...] 0 | 03/22/19 | | | (MYCOSTATIN) [id number] | | | | 14 | | [...] as of this encounter ED Notes Eliu Herrera MD - 06/04/2013 1:51 PM PDTFormatting [...] of the upper extremities he is subac stalin spinal cord injury less than 6 months [...] Wilhelm PA-C. Contact information: [address] [place] [address] I discussed this patient with the [facility] and reviewed prior urine cultures. P kamala has had treatment with Cipro which cultures [...] urinary indwelling Hancock catheter, initial encounte r ([facility]) 2. Cough 3. Paraplegia following spinal cord injury ([facility]) Eliu Herrera MD 06/04/13 1643 documented in this encounter Miscellaneous Notes Plan of Care - GHADA GUY WAMT - 06/07/2013 12:00 AM PDT D [...] [place] | | | | | | [address] | | | | | | | [...] + | Td Meneses Results In - 06/04/2013 3:20 PM PDT [...] + | MISCELLANEOUS LAB | | | [phone] | + +---------+ + + | MISCELANIOUS LAB | | | [phone] | + +---------+ + + Culture, Urine [...] + | [address] | [address] | [place] | [phone] | | [facility] | | [address] | | | - LABORATORY | | | | + + + + + | [address] | [address] | [place], [place] | | | [facility] | | [address] | | | - LABORATORY | [...] - 1.030 | [facility] | | | [place], | | | [facility] | | [...] | n, Urine | | | [facility] | | [...] ST. | [address] | [place] | [phone] | | [facility] | | [address] | | | - LABORATORY | | | | + + + + + | [address] | [address] | [place], [place] | | | [facility] | | [address] | | | - [...]
--- OUTSIDE RECORDS SUMMARY | ~2019-11-15 | XMS | Encounter Summary ---
Demographics + + + | Address | [address] | | | [place] [address] | + + + | Home Phone [...] Team Providers + +------+ + | Care Brand Engineer Name | Role | Phone | [...] + | 11/11/ | Telephone | [facility] | Chris Priest, | Forms | | 2014 | | PHYSIATRY [address] | [address] | | | | | [address] | [place] | | | | | [place] | [address] | | | | | [address] | | | | | | [phone] | | | +--------+ + + + [...] [place] | | | | | | [address] | | | | | | | | +--------+ + + + + documented as of this encounter Visit Diagnoses Not on filedocumented in this encounter
--- OUTSIDE RECORDS SUMMARY | ~2019-11-15 | XMS | Encounter Summary ---
Demographics + + + | Address | [address] | | | [place] [address] | + + + | Home Phone [...] + + + | Author | [facility] | | | and [place] | + + + | Organization | [facility] | | | and [...] Team Providers + +------+ + | Care Tobacco Shaker Name | Role | Phone | + [...] | | | | | [address] [facility] | [place] [address] | | | | | [place] [address] | | | | | | [phone] | | | +--------+ + + + [...] [place] | | | | | | [address] | | | | | | | [...]
--- OUTSIDE RECORDS SUMMARY | ~2019-11-15 | XMS | Encounter Summary ---
Demographics + + + | Address | [address] | | | [place] [address] | + + + | Home Phone [...] Team Providers + +------+ + | Care Alteration Workroom Supervisor Name | Role | Phone | [...] + + | 08/01/ | Emergency | [facility] | Mikal Dillard, | Catheter (urine) | | 2013 | | MED CTR EMERGENCY | MD [address] | change required | | | | CENTER [address] | [place] | (Primary Dx) | | | | [place] | [address] | | | | | [address] | | | | | | [phone] | | | +--------+ + + + [...] be sent through Care Everywhere.BARRIENTOS CATHETER, CARE (TURKISH)documented in this encounter Medications at Time [...] 0 | 03/22/19 | | | (MYCOSTATIN) [id number] | | | | 14 | | [...] changed every month. He was seen at [facility] and sent here f or his Barrientos [...] (*) Clear PH UA 7.5 5.0-8.0 Specific [place] 1.025 1.001-1.030 PROTEIN UA 300 mg/dL (*) [...] Code Fresh Frozen Plasma Thawed UNIT # [id number] UNIT ABO O UNIT RH POS Unit [...] Code Fresh Frozen Plasma Thawed UNIT # [id number] UNIT ABO O UNIT RH POS Unit Status Transfused URINALYSIS Component Value Range COLOR Yellow Light Yellow, Yellow CLARITY Clear Clear PH UA 5.5 5.0-8.0 Specific [place] <=1.005 1.001-1.030 PROTEIN UA Negative Negative, Trace, [...] Code Fresh Frozen Plasma Thawed UNIT # [id number] UNIT ABO O UNIT RH POS Unit [...] Code Fresh Frozen Plasma Thawed UNIT # [id number] UNIT ABO O UNIT RH POS Unit [...] encounter Miscellaneous Notes Plan of Care - HGADA GUY WAAR - 08/02/2013 12:00 AM PDT D Triage Notes - Babita Land RN - 08/01/2013 10:[address] [facility]. [...] Visit | and Rehabilitation | [facility] | | | | | | [place], [place] | | | | | | [address] | | | | | | | | +--------+ + + + + documented as of this encounter Visit Diagnoses + + | Diagnosis | + + | Catheter (urine) change required - Primary Fitting and adjustment of urinary device | + + documented in this encounter"
--- OUTSIDE RECORDS SUMMARY | ~2019-11-15 | XMS | Encounter Summary ---
Demographics + + + | Address | [address] | | | [place] [address] | + + + | Home Phone [...] Team Providers + +------+ + | Care Mechanical Drafter Name | Role | Phone | + [...] | | | | | [address] | [place] [address] | | | | | [place] [address] | | | | | | [phone] | | | +--------+ + + + [...] [place] | | | | | | [address] | | | | | | | [...]
--- OUTSIDE RECORDS SUMMARY | ~2019-11-15 | XMS | Encounter Summary ---
Demographics + + + | Address | [address] | | | [place] [address] | + + + | Home Phone [...] Author | [facility] | | | and [place] | + + + | Organization | [facility] | | | [...] Team Providers + +------+ + | Care Mfg Assoc Name | Role | Phone | [...] | | | | OP [address] | [place] | | | | | [place] | [address] | | | | | [address] | | | | | | [phone] | | | +--------+ + + + [...] PM SHABBIR spoke to Kendall at [facility] who reporte d that they received [...] [place] | | | | | | [address] | | | | | | | [...]
--- OUTSIDE RECORDS SUMMARY | ~2019-11-15 | XMS | Encounter Summary ---
Demographics + + + | Address | [address] | | | [place] [address] | + + + | Home Phone [...] Team Providers + +------+ + | Care Bin Piler Name | Role | Phone | + [...] | | | | OP [address] | [place] | | | | | [place] | [address] | | | | | [address] | | | | | | [phone] | | | +--------+ + + + [...] Ren, PT - 05/13/2015 4[facility]59 [facility] [address] [place] [address] Cancellation Date: 05/13/2015 Patient Information Patient Name: Martinez Abbasi II Date of : 1970 Age: 44 y.o. Reason for missed visit: Pt called to cancel due to having a mirBrandYourselfaine Phone call placed: yes - no answer [...] [place] | | | | | | [address] | | | | | | | | +--------+ + + + + documented as of this encounter Visit Diagnoses Not on filedocumented in this encounter"
--- OUTSIDE RECORDS SUMMARY | ~2019-11-15 | XMS | Encounter Summary ---
Demographics + + + | Address | [address] | | | [place] [address] | + + + | Home Phone [...] Team Providers + +------+ + | Care Inspector Crystal Name | Role | Phone | + [...] | | | | OP [address] | [place] | | | | | [place] | [address] | | | | | [address] | | | | | | [phone] | | | +--------+ + + + [...] Ren, PT - 03/03/2015 10:44 AM [facility] [address] [place] [address] Cancellation/No Show Date: 03/03/2015 Patient Information Patient [...] [place] | | | | | | [address] | | | | | | | | +--------+ + + + + documented as of this encounter Visit Diagnoses Not on filedocumented in this encounter"
--- OUTSIDE RECORDS SUMMARY | ~2019-11-15 | XMS | Encounter Summary ---
Demographics + + + | Address | [address] | | | [place] [address] | + + + | Home Phone [...] Team Providers + +------+ + | Care Well Cleaner Name | Role | Phone | + [...] + + | 07/26/ | Telephone | [facility] | Chris Priest, | Referral (Follow up) | | 2013 | | PHYSIATRY [address] | MD [address] | | | | | [address] | [place] | | | | | [place] | [address] | | | | | [address] | | | | | | [phone] | | | +--------+ + + + [...] urgent. Notified pt that our urologist in [facility] is booking until November, bu t Dr. Salgado from [facility] is booking in middle of September. [...] [place] | | | | | | [address] | | | | | | | | +--------+ + + + + documented as of this encounter Visit Diagnoses Not on filedocumented in this encounter"
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
--- OUTSIDE RECORDS SUMMARY | ~2019-11-15 | XMS | Encounter Summary ---
Demographics + + + | Address | [address] | | | [place] [address] | + + + | Home Phone [...] Team Providers + +------+ + | Care Washer Cutter Name | Role | Phone | [...] + + | 04/08/ | Emergency | [facility] | Reagan Clifford MD | Urinary catheter | | 2016 | | MED CTR EMERGENCY | [address] | ([place]) change | | | | CENTER [address] | [place] | required (Primary | | | | [place] | [address] | Dx) | | | | [address] | | | | | | [phone] | | | +--------+ + + + [...] 0 | 03/22/19 | | | (MYCOSTATIN) [id number] | | | | 14 | | [...] and is scheduled to be seen in [place] but was unable to get it changed. [...] IS PARAPLEGIC; Surgeon: Jonathan Avendaño MD; Location: [facility] REVIEW OF SYSTEMS As in history of [...] | | | [place] | | | | | | [address] | | | | | | | | +--------+ + + + + documented as of this encounter Visit Diagnoses + + | Diagnosis | + + | Urinary catheter ([place]) change required - Primary Fitting and adjustment of urinary | | device | + + documented in this encounter
--- OUTSIDE RECORDS SUMMARY | ~2019-11-15 | XMS | Encounter Summary ---
Demographics + + + | Address | [address] | | | [place] [address] | + + + | Home Phone [...] Providers + +------+ + | Care Supervisor Baking Name | Role | Phone | + [...] ANAIS | | | | n | ([facility]) | [address] | [address] | | | | | Abdominal | [place], | [place] | | | | | spasms | [place] [address] | [address] Phone: | | | | | Muscle spasm | Phone: | [phone] | | | | | of both | [phone] | Fax: | | | | | lower legs | Fax: | [phone] | | | | | Neurogenic | [phone] | | | | | | bladder [...] + + | 06/14/ | Office | [facility] | Chris Priest, | Quadriplegia (HCC) | | 2017 | Visit | PHYSIATRY [address] | MD [address] | (Primary Dx); | | | | [address] | [place] | Abdominal spasms; | | | | [place], [place] | [address] | Muscle spasm of both | | | | [address] | | lower legs; | | | | [phone] | | Neurogenic bladder; | | | [...] encounter Patient Instructions Patient Instructions Dia Loza, Line Repairer Tower - 06/14/2016 5:02 PM PDTContin ue with [...] baclofen is n ow being managed through [employer]. Martinez Abbasi II reports that he has increased function in his arms and hands. With yash nuation of physical therapies. He reports that he can now mortgage protection specialist objects in his right hand. Martinez Abbasi [...] to the cervical region. He has tenodesis mortgage protection specialist in both hands. He has 4+/5 wrist [...] Martinez Abbasi II has pain contract through [facility] and is advised to continue care [...] (Jr.) ELECTRONICALLY SIGNED BY: Dia Loza, Frame Nailer, 06/14/2016 16:58 I Ashley Ortiz am personally [...] [place] | | | | | | [address] | | | | | | | | +--------+ + + + + + + +--------+ + + | Name | Type | Priori | Associated Diagnoses | Order Schedule | | | | ty | | | + + +--------+ + + | * SARAH KOENIG | Outpatient | Routin | Quadriplegia ([facility]) | Ordered: 06/14/2016 | | Physiatry - [...] | Diagnosis | + + | Quadriplegia ([facility]) - Primary Quadriplegia, unspecified | + + [...]
--- OUTSIDE RECORDS SUMMARY | ~2019-11-15 | XMS | Encounter Summary ---
Demographics + + + | Address | [address] | | | [place] [address] | + + + | Home Phone [...] | Author | [facility] | | | and [place] | + + + | Organization | [facility] | | [...] Team Providers + +------+ + | Care Corn Miller Name | Role | Phone | + [...] [address] | | | | n | ([facility]) | [address] | [address] | | | | | | [place], | [place], | | | | | | [place] [address] | [place] [address] | | | | | | Phone: | Phone: | | | | | | [phone] | [phone] | | | | | | Fax: | Fax: | | | | | | [phone] | [phone] | +--------+ + + + + + [...] + + | 12/23/ | Telephone | [facility] | Chris Priest, | Referral | | 2014 | | PHYSIATRY [address] | MD [address] | | | | | [address] | [place] | | | | | [place] | [address] | | | | | [address] | | | | | | [phone] | | | +--------+ + + + [...] [facility] and told that they would need to [...] | | | | | [place] | | | | | | [address] | | | | | | | [...]
--- OUTSIDE RECORDS SUMMARY | ~2019-11-15 | XMS | Encounter Summary ---
Demographics + + + | Address | [address] | | | [place] [address] | + + + | Home Phone [...] + + + | Author | [facility] | | | and [place] | + + + | Organization | [facility] | | [...] Team Providers + +------+ + | Care Salesperson Flowers Name | Role | Phone | + [...] | | | | | Procedures | [address] | [address] | | | | | 10/21 PEND | [place], | [address] [place] | | | | | [place] | [place] [address] | [place], [place] | | | | | | Phone: | [phone] | | | | | | [phone] | Phone: | | | | | | Fax: | [phone] | | | | | | [phone] | Fax: | | | | | | | [phone] | +--------+ + + + + + Reason for Visit + + + | Reason | Comments | + + + | Follow-up | | + + + Encounter Details +--------+---------+ + + + | Date | Type | Department | Care Team | Description | +--------+---------+ + + + | 10/20/ | Office | [facility] | Chris Aguirre, | Incomplete | | 2014 | Visit | PHYSIATRY [address] | MD [address] | quadriplegia at C6 | | | | [address] | [place] | level ([facility]) (Primary | | | | [place] | [address] | Dx); Epigastric | | | | [address] | | pain; Abdominal | | | | [phone] | | spasms; Spasm; | | | [...] MD - 10/20/2014 4:17 PM PDT [facility] [address] [address] OFFICE NOTE CHRIS AGUIRRE JR, MD Patient: MARTINEZ ABBASI Admitting: MR #: [id number] LOC: PT TYPE: Adm Date: 10/20/2014 : [...] 10/20/2014 16:17:43 Transcribed on 10/21/2014 05:27:40 by [facility] job# [id number] Confirmation #: [id number] cc: EDWAR GRENEFIELD PAC TMadr. dan c[facility], Chris Garcia MD - 10/20/2014 4:05 PM PDTThis office note has been dictated. Job ID# [id number] signed by Chris Aguirre MD at 10/20/2014 [...] [place] | | | | | | [address] | | | | | | | [...]
--- OUTSIDE RECORDS SUMMARY | ~2019-11-15 | XMS | Encounter Summary ---
Demographics + + + | Address | [address] | | | [place] [address] | + + + | Home Phone [...] Team Providers + +------+ + | Care Configuration Management Consultant Name | Role | Phone | [...] | Emergency | [facility] | Eliu eHrrera | UTI (urinary tract | | 2013 | | [facility] | Harjit Colorado MD | infection) due to | | | | CENTER [address] | [address] | urinary indwelling | | | | [place], [place] | [place] | Hancock catheter, | | | | [address] | [address] | initial encounter | | | | [phone] | | (HCC) (Primary Dx); | | [...] Care Everywhere.UNDERSTANDING U RINARY TRACT INFECTIONS (UTIS) (YI)documented in this encounter Medications at Time of [...] 0 | 03/22/19 | | | (MYCOSTATIN) 239386 | | | | 14 | | [...] Wilhelm PA-C. Contact information: [address] [place] [address] I discussed this patient with the [facility] and reviewed prior urine cultures. P kamala [...] urinary indwelling Hancock catheter, initial encounte r ([facility]) 2. Cough 3. Paraplegia following spinal cord injury ([facility]) Eliu Herrera MD 06/04/13 1643 documented in [...] [place] | | | | | | [address] | | | | | | | [...] + | MISCELLANEOUS LAB | | | [phone] | + +---------+ + + | MISCELANIOUS LAB | | | [phone] | + +---------+ + + Culture, Urine [...] + | [address] | [address] | [place] | [phone] | | [facility] | | [address] | | | - LABORATORY | | | | + + + + + | [address] | [address] | [place], [place] | | | [facility] | | [address] | | | - [...] - 1.030 | [facility] | | | [place], | | | [facility] | | [...] ST. | [address] | [place] | [phone] | | [facility] | | [address] | | | - LABORATORY | | | | + + + + + | [address] | [address] | [place], [place] | | | [facility] | | [address] | | | - LABORATORY [...]
--- OUTSIDE RECORDS SUMMARY | ~2019-11-15 | XMS | Encounter Summary ---
Demographics + + + | Address | [address] | | | [place] [address] | + + + | Home Phone [...] Team Providers + +------+ + | Care Programmer Developer Name | Role | Phone | [...] + + | 11/04/ | Telephone | [facility] | Chris Priest, | Other | | 2014 | | PHYSIATRY [address] | [address] | | | | | [address] | [place] | | | | | [place] | [address] | | | | | [address] | | | | | | [phone] | | | +--------+ + + + [...] 11/05/2014 9:28 AM PDTReferral resent from 12/11 fx#[id number] signed by Lauren Troy RN at 11/05/2014 9:28 AM PDTTe lephone Encounter - Amelia Huddleston - 11/04/2014 8:46 AM [facility] reg[facility] rds to a Rx [...] for any further questions or clarification at [phone]. Otherwise this information can be faxed to [...] [place] | | | | | | [address] | | | | | | | | +--------+ + + + + documented as of this encounter Visit Diagnoses Not on filedocumented in this encounter"
--- OUTSIDE RECORDS SUMMARY | ~2019-11-15 | XMS | Clinical Summary ---
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 | | Sensation intact [...] [place] | | | | | | [address] | | | | | | | [...] +--------+ +---------+--------+ | MEDICARE | MEDICA | [id number] | 07/29/19 | [phone] | | Medica | | | RE | | 16-Pre | 5 | | re | | | PART A | | sent | | | | | | AND B | | | | | | + +--------+ +--------+ +---------+--------+ | [facility] | IHS | [id number] | Effect | | | Indemn | | SERVICE | YELLOW | | michelle | | | ity | | | HAWK | | for | | | | | | | | all | | | | | | | | dates | | | | + +--------+ +--------+ +---------+--------+ | [employer] | MODA | [id number] | 02/17/ | [phone] | | Medica | | MEDICAID HMO | HEALTH | | 2014-P | 1 | | id | | | MDCD | | resent | | | | | | [place]MO [place] | | | | | | + +--------+ +--------+ +---------+--------+ | [facility] | IHS | [id number] | | | | Indemn | | [...] | 1971 | [phone] | [place] [address] | | | adrián | | | 4 (Home) | | + +--------+ +--------+ + + | Martinez Abbasi II | Person | Self | [birth year] | | [address] | | | al/Fam | | 1971 | [phone] | [place] [address] | | | adrián | | | 4 (Home) | | + +--------+ +--------+ + + | Martinez Abbasi II | Person | Self | [birth year] | | [address] | | | al/Fam | | 1971 | [phone] | [place] [address] | | | adrián | | | 4 (Home) | | + +--------+ +--------+ + + Advance Directives + + + + + | Type | Date Recorded | Patient | Explanation | | | | Windows Phone Developer | | + + + + + | Power of | | | | | Director Dermatology | | | | + + + [...]
--- OUTSIDE RECORDS SUMMARY | ~2019-11-15 | XMS | Encounter Summary ---
Demographics + + + | Address | [address] | | | [place] [address] | + + + | Home Phone [...] Team Providers + +------+ + | Care Guardian Ad Litem Name | Role | Phone | + [...] | | | | OP [address] | [place] | | | | | [place] | [address] | | | | | [address] | | | | | | [phone] | | | +--------+ + + + [...] Ren, PT - 04/03/2015 11:02 AM [facility] OP [address] [place] [address] Cancellation/No Show Date: 04/03/2015 Patient Information Patient [...] [place] | | | | | | [address] | | | | | | | | +--------+ + + + + documented as of this encounter Visit Diagnoses Not on filedocumented in this encounter"
--- OUTSIDE RECORDS SUMMARY | ~2019-11-15 | XMS | Encounter Summary ---
Demographics + + + | Address | [address] | | | [place] [address] | + + + | Home Phone [...] Team Providers + +------+ + | Care Manual Winder Name | Role | Phone | + [...] [place] | | | | | | [address] | | | | | | [phone] | | | +--------+ + + + [...] question 1-6 is yes. Consult with manager pest prior to visit. Pt with incomplete quadriplegia [...] | | | | | [place] | | | | | | [address] | | | | | | | | +--------+ + + + + documented as of this encounter Visit Diagnoses Not on filedocumented in this encounter Home Health Visit - Care Plan + + | Visit Type - SN - REPEAT VISIT | | Discipline - Mcfp | + [...]
--- OUTSIDE RECORDS SUMMARY | ~2019-11-15 | XMS | Encounter Summary ---
Demographics + + + | Address | [address] | | | [place] [address] | + + + | Home Phone [...] Team Providers + +------+ + | Care Reimbursement Manager Name | Role | Phone | [...] + + | 04/08/ | Emergency | [facility] | Reagan Clifford MD | Urinary catheter | | 2016 | | MED CTR EM[facility]ENCY | [address] | (Hancock) change | | | | CENTER [address] | [place] | required (Primary | | | | [place] | [address] | Dx) | | | | [address] | | | | | | [phone] | | | +--------+ + + + [...] 0 | 03/22/19 | | | (MYCOSTATIN) [id number] | | | | 14 | | [...] Encounter Note CHIEF COMPLAINT: Catheter change HPI Matrinez Abbasi II is a 44 y.o. male who presents to the Emergency Department with chronic i ndwelling suprapubic catheter. Usually gets it changed once a month. He is currently in be tween urologist and is scheduled to be seen in [place] but was unable to get it changed. [...] IS PARAPLEGIC; Surgeon: Jonathan Avendaño MD; Location: [facility] REVIEW OF SYSTEMS As in history [...] [place] | | | | | | [address] | | | | | | | | +--------+ + + + + documented as of this encounter Visit Diagnoses + + | Diagnosis | + + | Urinary catheter (Hancock) change required - Primary Fitting and adjustment of urinary | | device | + + documented in this encounter
--- OUTSIDE RECORDS SUMMARY | ~2019-11-15 | XMS | Encounter Summary ---
Demographics + + + | Address | [address] | | | [place] [address] | + + + | Home Phone [...] + + + | Author | [facility] | | | and [place] | + + + | Organization | [facility] | | | [...] Team Providers + +------+ + | Care Finger Waver Name | Role | Phone | + [...] + + | 03/03/ | Office | [facility] | Chris Priest, | Incomplete | | 2014 | Visit | [address]YSIATRY [address] | [address] | quadriplegia at C6 | | | | [address] | [place] | level (HCC) (Primary | | | | [place] | [address] | Dx); Neurogenic | | | | [address]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 Job ID# [id number] signed by Chris Priest MD at 03/03/2014 2:59 PM PSTChris Priest MD - 03/03/2014 12:00 AM PST [facility] [address] [place] [address] FAX: [phone] OFFICE VISIT PHYSICAL MEDICINE REHABILITATION PROGRESS NOTE [...] injury. Greater than 40 minutes was spent vhne-dr-gkfn today with Mr. Abbasi, over half of which was spent formulating and discussing his medical treatment plan. CC: Edwar Wilhelm PA-C. Chris Priest Jr, MD [facility] JOB #: [id number] signed by Chris Priest MD at 03/04/2014 [...] [place] | | | | | | [address] [...]
--- OUTSIDE RECORDS SUMMARY | ~2019-11-15 | XMS | Encounter Summary ---
Demographics + + + | Address | [address] | | | [place] [address] | + + + | Home Phone [...] Team Providers + +------+ + | Care C Engineer Name | Role | Phone | + +------+ + | Edwar Wilhelm PA-C | PCP | | + +------+ + Encounter Details +--------+ + + + + | Date | Type | Department | Care Team | Description | +--------+ + + + + | 04/24/ | Documentati | [facility] | Della Ravi, | | | 2016 | on | MED CTR THERAPY PT | PT [address] | | | | | OP [address] | [place] | | | | | [place] | [address] | | | | | [address] | | | | | | [phone] | | | +--------+ + + + [...] Ren, PT - 04/24/2015 12:55 PM [facility] OP [address] [place] [address] Cancellation/No Show Date: 04/24/2015 Patient Information Patient [...] Care | Home Health Services | Kayla iDor, | | | 2019 | Visit | [...] [place] | | | | | | [address] | | | | | | | | +--------+ + + + + documented as of this encounter Visit Diagnoses Not on filedocumented in this encounter"
--- OUTSIDE RECORDS SUMMARY | ~2019-11-15 | XMS | Encounter Summary ---
Demographics + + + | Address | [address] | | | [place] [address] | + + + | Home Phone [...] Providers + +------+ + | Care Senior Search Marketing Analyst Name | Role | Phone [...] | | | | [place]astro[place] | | [place] [address] | | | | | geal reflux | | Phone: | | | | | disease | | [phone] | | | | | without | | Fax: | | | | | esophagitis | | [phone] | | | | | Abdominal | [...] + + | 12/19/ | Surgery | [facility] | Jonathan Avendaño MD | EGD - PT IS | | 2015 | | MED CTR MP INTRA OP | [address] | PARAPLEGIC | | | | [address] | [place], [place] | | | | | [place] | [address] | | | | | [address] | [phone] | | | | | [phone] | | | +--------+---------+ + + + [...] + + + | Blood Pressure | 99/63 | 12/19/2014 12:30 PM | | | | | PDT | | + + + + + | Pulse | 64 | 12/19/2014 12:30 PM | | | | | PDT | | + + + + + | Temperature | 36.7 C (98.1 F) | 12/19/2014 11:51 AM | | | | | PDT | | + + + + + | Respiratory Rate | 12 | 12/19/2014 12:30 PM | | | | | PDT | | + + + + + | Oxygen Saturation | 93% | 12/19/2014 12:30 PM | | | | | PDT [...] the physician who did your procedure at [phone] if you have any questions or experience any of the following: ? Increasing abdominal pain, nausea, or vomiting. ? Chills and fever over 101F. ? New abdominal swelling or bloating. ? Signs of rectal bleeding (black or red stool). If you cannot get a hold of your physician, then call the [facility] [phone] . If necessary, report to the Emergency Department at [facility]. Quit smoking: If you smoke or [...] 0 | 03/22/19 | | | (MYCOSTATIN) 137003 | | | | 14 | | [...] [place]ST[place] | | | | | | [address] | | | | | | | [...] 12/19/2014 | PROVATION | | 11:46 AMMRN: [id number] #: [id number] of : | | | 1970Admit Type: AmbulatoryAge: 44Room: [facility] 02Gender: MaleNote | | | Status: FinalizedAttending MD: Jonathan Avendaño, [facility]ITALrocedure: | | | Upper GI endoscopyIndications: Dyspepsia, Dysphagia, | | | Suspected esophageal reflux, NauseaProviders: Jonathan Kang | | | MD Jarocho, Shana Love RN, Karie Vasquez | | | Sridhar, Slug Press Operator, Blane Tompkins MD (Anesthesia | | [...] the | | | anesthesiologist and the fleet technician in the pre-procedure area in the [...] Scope In: 11:58:14 AMScope Out: 12:04:18 PM Frannie | | | [facility], [address] [place] [address] | | | [phone] | | | - Regular diet. | [...] |Scope Out: 12:04:18 PM | | | [facility], [facility] [address] [place], [place] | | | [address] | | + + -+ + +---------+ [...] for | | | increased epithelial eosinophils. JVR:[facility]:C2NR GROSS | | | DESCRIPTION: A. The specimen labeled "Martinez Abbasi II" and | | | designated "duodenum on the requisition," is received in formalin and | | | consists of three pink-bailey color tissue fragments, 0.2 to 0.4 cm. | | | All into (A1). B. The specimen labeled "Bearchum, Martinez II" | | | and designated "gastric on the requisition," is received in formalin | | | and consists of four pink-baiely color tissue fragments, 0.15 to 0.6 cm. | | | All into (B1). C. The specimen labeled "Bearchum, Martinez II" | | | and designated esophagus on the requisition," is received in formalin | | | and consists of three cream-colored tissue fragments, 0.4 cm. All | | | into (C1). yyt:[facility] PERFORMING LABORATORY: Tissue processing | | | and slide preparation were performed by [facility], [address], [place] [address] (Frickertron Checker: Krishna Miranda M.D. CLIA#: [id number]). Professional interpretation was | | | performed by [facility], [facility] | | | Branch, [address] [place] [address] (Frickertron Checker: | | | Krishna Miranda M.D.; CLIA#: [id number]). Diagnostician: Krishna Woods | Allan Miranda MD Pathologist Electronically Signed [...]
--- OUTSIDE RECORDS SUMMARY | ~2019-11-15 | XMS | Encounter Summary ---
Demographics + + + | Address | [address] | | | [place] [address] | + + + | Home Phone [...] Author | [facility] | | | and [place] | + + + | Organization | [facility] | [...] Team Providers + +------+ + | Care Diffusion Furnace Operator Name | Role | Phone | [...] + + | 03/03/ | Office | [facility] | Chris Priest, | Incomplete | | 2014 | Visit | PHYSIATRY [address] | [address] | quadriplegia at C6 | | | | [address] | [place] | level (HCC) (Primary | | | | [place] | [address] | Dx); Neurogenic | | | | [address] | | bowel; Neurogenic | | | | [phone] | | bladder; Spasm; | | | [...] office note has been dictated. Job ID# [id number] signed by Chris Priest MD at 03/03/2014 2:59 PM PSTChris Priest MD - 03/03/2014 12:00 AM PST [facility] [address] [place] [address] FAX: [phone] OFFICE VISIT PHYSICAL MEDICINE REHABILITATION PROGRESS NOTE [...] injury. Greater than 40 minutes was spent olit-pu-diyn today with Mr. Abbasi, over half of which was spent formulating and discussing his medical treatment plan. CC: Edwar Wilhelm PA-C. Chris Priest Jr, MD [place] [facility] [place] JOB #: [id number] signed by Chris Priest MD at 03/04/2014 [...] LONG | | | | | | [address] | | | | | | | [...]
--- OUTSIDE RECORDS SUMMARY | ~2019-11-15 | XMS | Encounter Summary ---
Demographics + + + | Address | [address] | | | [place] [address] | + + + | Home Phone [...] + +------+ + | Care Director Of Midwifery/Staff Midwife Name | Role | Phone | + [...] [place] | | | | | | [address] | | | | | | [phone] | | | +--------+ + + + [...] [place] | | | | | | [address] | | | | | | | | +--------+ + + + + documented as of this encounter Visit Diagnoses Not on filedocumented in this encounter"
--- OUTSIDE RECORDS SUMMARY | ~2019-11-15 | XMS | Encounter Summary ---
Demographics + + + | Address | [address] | | | [place] [address] | + + + | Home Phone [...] Team Providers + +------+ + | Care Registered Nurse Step Down Name | Role | Phone | + +------+ + | Edwar Wilhelm PA-C | PCP | | + +------+ + Encounter Details +--------+ + + + + | Date | Type | Department | Care Team | Description | +--------+ + + + + | 05/05/ | Documentati | [facility] | Della Ravi, | | | 2016 | on | MED CTR THERAPY PT | PT [address] | | | | | OP [address] | [place] | | | | | [place] | [address] | | | | | [address] | | | | | | [phone] | | | +--------+ + + + [...] Ren, PT - 05/06/2015 4:52 PM [facility] OP [address] [place] [address] Cancellation Date: 05/06/2015 Patient Information Patient Name: [...] [place] | | | | | | [id number] | | | | | | | | +--------+ + + + + documented as of this encounter Visit Diagnoses Not on filedocumented in this encounter"
--- OUTSIDE RECORDS SUMMARY | ~2019-11-15 | XMS | Encounter Summary ---
Demographics + + + | Address | [address] | | | [place] [address] | + + + | Home Phone [...] Team Providers + +------+ + | Care Plastic Fabricator Name | Role | Phone | + [...] | | | | [address] [facility] | [place] [address] | | | | | [place] [address] | | | | | | [phone] | | | +--------+ + + + [...] [place] | | | | | | [address] | | | | | | | [...]
--- OUTSIDE RECORDS SUMMARY | ~2019-11-15 | XMS | Encounter Summary ---
Demographics + + + | Address | [address] | | | [place] [address] | + + + | Home Phone [...] Team Providers + +------+ + | Care Journalist Name | Role | Phone | + [...] | | | | Gastro[place]oph[place] | | [place] [address] | | | | | geal reflux | | Phone: | | | | | disease | | [phone] | | | | | without | | Fax: | | | | | esophagitis | | [phone] | | | | | Abdominal | [...] | | | | | | | [place] | | | | | | | [...] | | | | | [address] | [address] [place] | | | | | [place] | [place] [address] | | | | | [address] | [phone] | | | | | [phone] | | | +--------+ + + + [...] Ochoa, | User Epic | | | pediatric acute care unit nurse and check twice | RN | | [...] from the original. ANESTHESIA POSTANESTHESIA EVALUATION [facility] II 44 y.o. male 1970 [id number] Procedure(s) EGD - PT IS PARAPLEGIC (N/A [...] signed by Blane Tompkins MD 12/19/2014 12:09 [facility] nesthesia Prepr ocedure Evaluation - Blane Tompkins MD - 12/16/2014 11:17 AM PDTFormatting of this no te might be different from the original. ANESTHESIA PREANESTHESIA EVALUATION Martinez [facility] 44 y.o. male 1970 [id number] Procedure(s): EGD - PT IS PARAPLEGIC (N/A Mouth) Medical history, anesthesia, medications, allergy, NPO status verified histories reviewed. ECG reviewed. Labs reviewed. Review of Systems / Med History Anesthesia History No anesthesia complications. Cardiovascular (+) hypertension.(-) CAD, past [place], CHF. Exercise tolerance <4 METS. Pulmonary Negative [...] [place] | | | | | | [address] | | | | | | | [...]
--- OUTSIDE RECORDS SUMMARY | ~2019-11-15 | XMS | Encounter Summary ---
Demographics + + + | Address | [address] | | | [place] [address] | + + + | Home Phone [...] Team Providers + +------+ + | Care Plant Maintenance Worker Name | Role | Phone [...] + + | 10/29/ | Office | [facility] | Chris Priest, | Quadriplegia, C5-C7 | | 2013 | Visit | [address]SIATRY [address] | MD [address] | incomplete (HCC) | | | | [address] | [place], [place] | (Primary Dx); | | | | [place] | [address] | Pressure ulcer, | | | | [address] | | buttock, left, | | | | [phone] | | unstageable (HCC); | | | [...] office note has been dictated. Job ID# [id number] signed by Chris Priest MD at 10/29/2013 2:26 PM Lauren Guajardo RN - 10/29/2013 1:34 PM PDTPatient states mild soreness from PT, but no pain. Patient st ates intermittent spasms. P M Chris Ware MD - 10/29/2013 12:00 AM PDT [facility] RE[facility] [address] [place] [address] FAX: [phone] OFFICE VISIT PHYSICAL MEDICINE REHABILITATION PROGRESS NOTE [...] jones has been seen by urologist in [place]. He indicates they are planning to place [...] Jr, MD JACKIE / JWEdilberto JOB #: [id number] cc: JANIE Perez-C documented in this encounter [...] [place] | | | | | | [address] | | | | | | | [...]
--- OUTSIDE RECORDS SUMMARY | ~2019-11-15 | XMS | Encounter Summary ---
Demographics + + + | Address | [address] | | | [place] [address] | + + + | Home Phone [...] Team Providers + +------+ + | Care Tongsman Name | Role | Phone | + [...] | | | | OP [address] | [place] | | | | | [place] | [address] | | | | | [address] | | | | | | [phone] | | | +--------+ + + + [...] Ren, PT - 03/03/2015 10:44 AM [facility] OP [address] [place] [address] Cancellation/No Show Date: 03/03/2015 Patient Information Patient [...] LONG | | | | | | [address] | | | | | | | | +--------+ + + + + documented as of this encounter Visit Diagnoses Not on filedocumented in this encounter"
--- OUTSIDE RECORDS SUMMARY | ~2019-11-15 | XMS | Encounter Summary ---
Demographics + + + | Address | [address] | | | [place] [address] | + + + | Home Phone [...] | [facility] | | | and [place] | + + + | Organization | [facility] | | [...] Team Providers + +------+ + | Care Cable Television Technician Name | Role | Phone | [...] | | | | [place]astro[place]oph[place] | | [place] [address] | | | | | geal reflux | | Phone: | | | | | disease | | [phone] | | | | | without | | Fax: | | | | | esophagitis | | [phone] | | | | | Abdominal | [...] | | | | | | | [place] | | | | | | | [...] + + | 12/19/ | Surgery | [facility] | Jonathan Avendaño MD | EGD - PT IS | | 2015 | | MED CTR [facility] OP | [address] | PARAPLEGIC | | | | [address] | [place], [place] | | | | | [place] | [address] | | | | | [address] | [phone] | | | | | [phone] | | | +--------+---------+ + + + [...] the physician who did your procedure at [phone] if you have any questions or experience any of the following: ? Increasing abdominal pain, nausea, or vomiting. ? Chills and fever over 101F. ? New abdominal swelling or bloating. ? Signs of rectal bleeding (black or red stool). If you cannot get a hold of your physician, then call the [facility] [phone] . If necessary, report to the Emergency Department at [facility]. Quit smoking: If you smoke or have [...] 0 | 03/22/19 | | | (MYCOSTATIN) [id number] | | | | 14 | | [...] Jonathan Avendaño MD at 12/19/2014 12:13 PM Joanthan Stallworth MD - 12/11/2014 5:53 PM PDT [...] [place]ST[place] | | | | | | [address] | | | | | | | [...] 12/19/2014 | PROVATION | | 11:46 AMMRN: [id number] #: [id number] of : | | | 1970Admit Type: AmbulatoryAge: 44Room: [facility] 02Gender: MaleNote | | | Status: FinalizedAttending MD: Jonathan Avendaño, [facility]: | | | Upper GI endoscopyIndications: Dyspepsia, Dysphagia, | | | Suspected esophageal reflux, NauseaProviders: Jonathan Kang | | | MD Jarocho, Shana Love RN, Karie Vasquez | | | Sridhar, Breaster, Blane Tompkins MD (Anesthesia | | | [...] the | | | anesthesiologist and the water supply technician in the pre-procedure area in the [...] Scope In: 11:58:14 AMScope Out: 12:04:18 PM [place] | | | [facility], [address] [place] [address] | | | [phone] | | | - Regular diet. | [...] |Scope Out: 12:04:18 PM | | | [facility], [facility] [address] [place], [place] | | | [address] | | + + -+ + +---------+ [...] for | | | increased epithelial eosinophils. JVR:[facility]:C2NR GROSS | | | DESCRIPTION: A. [...] cm. All | | | into (C1). yyt:JVR:[facility] PERFORMING LABORATORY: Tissue processing | | | and slide preparation were performed by [employer], [address], [place] [address] ([employer]: Krishna Miranda M.D. CLIA#: [id number]). Professional interpretation was | | | performed by [employer], [facility] | | | Branch, [address] [place] [address] ([employer]: | | | Krishna Miranda M.D.; CLIA#: [id number]). Diagnostician: Krishna Woods | Allan Miranda MD [...]
--- OUTSIDE RECORDS SUMMARY | ~2019-11-15 | XMS | Encounter Summary ---
Demographics + + + | Address | [address] | | | [place] [address] | + + + | Home Phone [...] Author | [facility] | | | and [place] | + + + | Organization | [facility] | | | and [...] Team Providers + +------+ + | Care Patient Scheduling Manager Name | Role | Phone | [...] | | | | , C[address]-C7, | [address] | THERAPY [address] | | | | | incomplete | [place], | JACQU[place]INE | | | | | ([facility]) | [place] [address] | [place] | | | | | Impaired | Phone: | [address] | | | | | mobility and | [phone] | Phone: | | | | | activities | Fax: | [phone] | | | | | of daily | [phone] | Fax: | | | | | living | | [phone] | +--------+ + + + + + [...] | Quadriplegia | DO [address] | | | | n | ([facility]) | [address] | [place], | | | | | | [place] [address] | [place] [address] | | | | | | [place], | Phone: | | | | | | [place] [address] | [phone] | | | | | | Phone: | Fax: | | | | | | [phone] | [phone] | | | | | | Fax: | | | | | | | [phone] | | +--------+--------+ + + + + Encounter Details +--------+---------+ + + + | Date | Type | Department | Care Team | Description | +--------+---------+ + + + | 09/23/ | [facility] | [facility] | Chris Priest, | Quadriplegia, C5-C7, | | 2019 | Visit | PHYSIATRY [address] | MD [address] | incomplete (HCC) | | | | [address] | [place] | (Primary Dx); | | | | [place] | [address] | Abdominal spasms; | | | | [address] | | Muscle spasm of both | | | | [phone] | | lower legs; | | | [...] encounter Patient Instructions Patient Instructions Dia Loza, Pet Handler - 09/24/2019 3:20 PM PDTPhysic al therapy [...] m the original. Chris Priest MD [address] [facility], [address] [place] [address] FAX: PHYSICAL MEDICINE AND REHABILITATION [...] denies concerns or questions at this ti sc. PAST MEDICAL HISTORY: Past Medical History: Diagnosis [...] IS PARAPLEGIC; Surgeon: Jonathan Avendaño MD; Location: [facility] CURRENT MEDICATIONS: Current Outpatient Medications Medication Sig [...] tablet by mouth as needed. nystatin (MYCOSTATIN) [id number] UNIT/GM powder Bid to rash omeprazole (PRILOSEC) [...] has no apparent deficits with short or jail memory. He has appropriate fund of knowledge Cranial nerves appear grossly intact. Sensory: intact sensation at C7 dermatome to monofilament touch. Absent sensation C8 derm atome to monofilament touch. MOTOR EXAM: (5 IS NORMAL) * Indicates pain limited MUSCLE/ MOVEMENT: RIGHT LEFT Biceps 5 5 Triceps 4+ 4- Wrist Flexion 5 5 Wrist Extension 5 5 Manager Benefit Strength 2 1 MUSCULOSKELETAL RADIOGRAPHIC REVIEW: No [...] [place] | | | | | | [address] | | | | | | | [...]
--- OUTSIDE RECORDS SUMMARY | ~2019-11-15 | XMS | Encounter Summary ---
Demographics + + + | Address | [address] | | | [place] [address] | + + + | Home Phone [...] Team Providers + +------+ + | Care Orthopaedic Technologist Name | Role | Phone | [...] [place] | | | | | | [address] | | | | | | [phone] | | | +--------+ + + + [...] question 1-6 is yes. Consult with manager fashion prior to visit.Electronically s igned by Jennifer [...] [place] | | | | | | [address] | | | | | | | | +--------+ + + + + documented as of this encounter Visit Diagnoses Not on filedocumented in this encounter Home Health Visit - Care Plan + + | Visit Type - SN - REPEAT VISIT | | Discipline - Fdc | + + + + +--------+--------+-------+ + | Problem | Description | Start | Status | Goals | Interventio | | | | Date | | | ns | + + +--------+--------+-------+ + | HH Other Wound | Upper right back | | | - | 1 problem | | Disciplines: | scab healed over | | Active | | | | Fdc | Left buttock hx of | 020 [...] 020 | | | interventio | | Fdc | | | | | n | [...] 020 | | | interventio | | Fdc | | | | | n | [...] | | Active | | | | Fdc | | 020 | | | interventio [...] 020 | | | interventio | | Fdc | | | | | n | [...] | | Active | | | | Fdc | | 020 | | | interventio [...] to | | | | | | [facility] [place] | | | | | [...]
--- OUTSIDE RECORDS SUMMARY | ~2019-11-15 | XMS | Encounter Summary ---
Demographics + + + | Address | [address] | | | [place] [address] | + + + | Home Phone [...] | Author | [facility] | | | and [place] | + + + | Organization | [facility] | | | and [place] | + + + | Address | Unknown | + + + | Phone | Unavailable | + + + Support + + +---------+ + | Name | Relationship | Address | Phone | + + +---------+ + | Iriada Toure | ECON | Unknown | | + + +---------+ + | srinath Abbasi | ECON | Unknown | | + + +---------+ + Care Team Providers + +------+ + | Care Ice Grinder Name | Role | Phone | + [...] + + | 10/18/ | Telephone | [facility] | Diomedes Zarate, | Other | | 2016 | | PHYSIATRY [address] | [address] | | | | | [address] | [place] [address], | | | | | [place] | [place] [address] | | | | | [address] | [phone] | | | | | [phone] | | | +--------+ + + + [...] PM PDTReceived a call from Awilda at [facility]. She state s that they have still not received notes from patient's visit with Dr. Zarate on 09/15/16. Notes are not yet complete in Epic to route. Awilda would like a call back to discuss this a nd other questions that Martinez has about his plan of care. Awilda can be reached directly at [phone]. elephone Ekta jenkins - Stephanie Cadena - [...] [place] | | | | | | [address] | | | | | | | | +--------+ + + + + documented as of this encounter Visit Diagnoses Not on filedocumented in this encounter"
--- OUTSIDE RECORDS SUMMARY | ~2019-11-15 | XMS | Encounter Summary ---
Demographics + + + | Address | [address] | | | [place] [address] | + + + | Home Phone [...] Team Providers + +------+ + | Care Shop Director Name | Role | Phone | [...] Home Care | [facility] | iSlva Singh RN | SN SOC ([place]AS[place]) | | 2020 | Visit | [address] [address] | | | | | | [place] | | | | | | [address] | | | | | | [phone] | | | +--------+ + + + [...] + documented in this encounter Miscellaneous Notes [facility] - Silva Singh RN - 10/11/2019 10:45 AM PDTVerified patient by name and date of . S- Patient admitted to [facility] following a ED referral. Patient diagnosed with [...] chair and lines/drains/tubes: chronic daly catheter.Patient refused PROFESSOR OF LAW or PT/OT. Mother and sister a re his caregivers. Patient transfers with transfer board. Denies any falls. Requested orders from Urology at [facility] for daly catheter change so patient doesn't [...] on prevention of [place] VID-19 spread [facility] protocols for prevention. Provided education on COVID-19 symptoms(Cou gh, fever, sore throat, SOB)and risk factors (underlying disease, recent travel, pt. conta ct with +COVID-19 person). Provided education on when to contact health director day care center a nd when to seek medical care. [...] any question 1-6 is yes. Consult with lead care manager prior to visit.Electronically s igned by [...] [place] | | | | | | [id number] | | | | | | | | +--------+ + + + + documented as of this encounter Visit Diagnoses Not on filedocumented in this encounter Home Health Visit - Care Plan + + | Visit Type - SN - OASIS START OF CARE | | Discipline - Retirement | + [...] 020 | | | interventio | | Retirement | | | | | n | [...] 020 | | | interventio | | Retirement | | | | | n | [...] 020 | | | interventio | | Retirement | | | | | n | [...] to | | | | | | [facility] [place] | | | | | [...] | Description: | | | | change [id number]. | | Requested orders | | | [...]
--- OUTSIDE RECORDS SUMMARY | ~2019-11-15 | XMS | Encounter Summary ---
Demographics + + + | Address | [address] | | | [place] [address] | + + + | Home Phone [...] Team Providers + +------+ + | Care Pathologist Name | Role | Phone | + [...] | [facility] | Eliu Herrera | Candidal intertrigo | | 2015 | | [facility] | Harjit Colorado MD | (Primary Dx) | | | | CENTER [address] | [address] | | | | | [place] | [place] | | | | | [address] | [address] | | | | | [phone] | | | +--------+ + + + [...] 0 | 03/22/19 | | | (MYCOSTATIN) [id number] | | | | 14 | | [...] + + documented as of this encounter Karie Frank RN - 03/26/2015 8:02 PM PSTPt discharged with mepilex borders, ABD pads, and tegaderm and instructed how to apply each and when to change dressings. Pt verbal ized understanding. arks, Eliu Colorado MD - 03/26/2015 6:39 PM PST [facility] Martinez Abbasi II Emergency Department Encounter Note [address] [place] [address] PCP:Edwar Wilhelm PA-C [phone] eMERGENCY dEPARTMENT eNCOUnter [...] Surgeon: Jonathan Avendaño MD; Location: [facility] CURRENT MEDICATIONS Discharge Medication List as of [...] or Severe Contraindications. Consult references such as [employer] for further information. diazepam (VALIUM) 5 mg [...] deficits noted, no facial assymetry noted. Equal bed teacher in all extremities ED COURSE & MEDICAL [...] up with Edwar Wilhelm PA-C. Specialty: Physician Optics Engineer-Medical Contact information: [address] [place] [address] Follow up with DEMETRA Patel. Specialty: Nurse Practitioner Contact information: [address] [facility] [phone] Currently patient is otherwise hemodynamically stable. Discharge [...] this chart may have been created with [employer]an[employer] voice recognition software. Occasi onal wrong-word or [...] 5:33 PM PSTOver the period of A savanna h has been developing a rash and [...] Bettie | | | | | | [place] | | | | | | [address] | | | | | | | [...] [address] | [place] | [phone] | | [facility] | | [address] | | | - LABORATORY | | [...]
--- OUTSIDE RECORDS SUMMARY | ~2019-11-15 | XMS | Encounter Summary ---
Demographics + + + | Address | [address] | | | [place] [address] | + + + | Home Phone [...] Team Providers + +------+ + | Care Narrow Fabric Calenderer Name | Role | Phone | + [...] + + | 05/14/ | Telephone | [facility] | Chris Priest MD | Other | | 2014 | | OTOLARYNGOLOGY [address] | [address] [facility] | | | | | [facility] [address] | [address] [place] | | | | | [place] | [address] | | | | | [address] | | | | | | [phone] | | | +--------+ + + + [...] go out of town on Monday to [place] for a family emergency and would like to know if it will be ok, c onsidering his condition. Or if there is any recommendations. Good number to call back at is [phone] signed by Lesley Casey at 05/14/2014 3:24 [...] [place] | | | | | | [address] | | | | | | | | +--------+ + + + + documented as of this encounter Visit Diagnoses Not on filedocumented in this encounter"
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
--- OUTSIDE RECORDS SUMMARY | ~2019-11-15 | XMS | Encounter Summary ---
Demographics + + + | Address | [address] | | | [place] [address] | + + + | Home Phone [...] Team Providers + +------+ + | Care Counter Supervisor Name | Role | Phone | + +------+ + | Edwar Wilhelm PA-C | PCP | | + +------+ + Encounter Details +--------+ + + + + | Date | Type | Department | Care Team | Description | +--------+ + + + + | 04/15/ | Documentati | [facility] | Della Ravi, | | | 2016 | on | MED CTR THERAPY PT | PT [address] | | | | | OP [address] | [place] | | | | | [place] | [address] | | | | | [address] | | | | | | [phone] | | | +--------+ + + + [...] Ren, PT - 04/15/2015 1:30 [facility] OP [address] [place] [address] Cancellation Date: 04/15/2015 Patient Information Patient Name: [...] [place] | | | | | | [address] | | | | | | | | +--------+ + + + + documented as of this encounter Visit Diagnoses Not on filedocumented in this encounter"
--- OUTSIDE RECORDS SUMMARY | ~2019-11-15 | XMS | Encounter Summary ---
Demographics + + + | Address | [address] | | | [place] [address] | + + + | Home Phone [...] + | Author | [facility] | | | and [place] | + + + | Organization | [facility] | | | [...] Providers + +------+ + | Care Fine Patcher Name | Role | Phone | + +------+ + | Edwar Wilhelm PA-C | PCP | | + +------+ + Encounter Details +--------+ + + + + | Date | Type | Department | Care Team | Description | +--------+ + + + + | 12/31/ | Hospital | [facility] MEDICAL | Conversion | | | 2016 | Encounter | CENTER PREADMIT | Transaction, | | | | | CLINIC [address] | Provider Unknown | | | | | [address] [place], [place] | | | | | | [address] | (Fax) | | | | | [phone] | | | +--------+ + + + [...] 0 | 03/22/19 | | | (MYCOSTATIN) [id number] | | | | 14 | | [...] Instructions by Loren Kumar RN at 01/01/16 9212 Author: Loren Kumar RN Service: Anesthesiology Author Type: Registered Nurse Filed: 01/01/161531 Date of Service: 01/01/161529 Status: Signed Generator Technician: Loren Kumar RN (Registered Nurse) Patient stated he saw a correctional officer lieutenant in [facility] at [facility], but medical records the re, unable to find any tests, notes, to send. onver román Transaction, Provider Unknown - 01/01/2016 3:21 PM PDT Pre-Procedure Instructions by Loren Kumar RN at 01/01/16 152 Author: Loren Kumar RN Service: Anesthesiology Author Type: Registered Nurse Filed: 01/01/16 1523 Date of Service: 01/01/161520 Status: Signed Generator Technician: Loren Kumar RN (Registered Nurse) Unable to [...] [place] | | | | | | [address] | | | | | | | | +--------+ + + + + documented as of this encounter Visit Diagnoses Not on filedocumented in this encounter
--- OUTSIDE RECORDS SUMMARY | ~2019-11-15 | XMS | Encounter Summary ---
Demographics + + + | Address | [address] | | | [place] [address] | + + + | Home Phone [...] Team Providers + +------+ + | Care 411 Directory Assistance Operator Name | Role | Phone | [...] | | | | Gastroesoph[place] | | [place] [id number] | | | | | geal reflux | | Phone: | | | | | disease | | [phone] | | | | | without | | Fax: | | | | | esophagitis | | [phone] | | | | | Abdominal | [...] | | | | | | | [place] | | | | | | | [...] + + | 12/19/ | Surgery | [facility] | Jonathan Avendaño MD | EGD - PT IS | | 2015 | | MED CTR MP INTRA OP | [address] | PARAPLEGIC | | | | [address] | [place], [place] | | | | | [place] | [address] | | | | | [address] | [phone] | | | | | [phone] | | | +--------+---------+ + + + [...] the physician who did your procedure at [phone] if you have any questions or experience any of the following: ? Increasing abdominal pain, nausea, or vomiting. ? Chills and fever over 101F. ? New abdominal swelling or bloating. ? Signs of rectal bleeding (black or red stool). If you cannot get a hold of your physician, then call the [facility] [phone] . If necessary, report to the Emergency Department at [facility]. Quit smoking: If you smoke or [...] 0 | 03/22/19 | | | (MYCOSTATIN) [id number] | | | | 14 | | [...] [place]ST[place] | | | | | | [address] | | | | | | | [...] 12/19/2014 | PROVATION | | 11:46 AMMRN: [id number] #: [id number] of : | | | 1970Admit Type: AmbulatoryAge: 44Room: [facility] 02Gender: MaleNote | | | Status: FinalizedAttending MD: Jonathan Avendaño, [facility]cedure: | | | Upper GI endoscopyIndications: Dyspepsia, Dysphagia, | | | Suspected esophageal reflux, NauseaProviders: Jonathan Kang | | | MD Jarocho, Shana Love RN, Karie Vasquez | | | Sridhar, Induction Heating Equipment Setter, Blane Tompkins MD (Anesthesia | | | [...] the | | | anesthesiologist and the airplane technician in the pre-procedure area in the [...] Scope In: 11:58:14 AMScope Out: 12:04:18 PM [place] | | | [facility], [address] [place] [address] | | | [phone] | | | - Regular diet. | [...] PM | | | [facility], [facility] [place], [place] | | | [address] | | + + -+ + +---------+ [...] for | | | increased epithelial eosinophils. JVR:[facility]:C2NR GROSS | | | [...] cm. All | | | into (C1). yyt:JVR:[facility] PERFORMING LABORATORY: Tissue processing | | | and slide preparation were performed by [employer], [address], [place] [address] (Car Framer: Krishna Miranda M.D. CLIA#: [id number]). Professional interpretation was | | | performed by [employer], [facility] | | | Branch, [address] [place] [address] (Car Framer: | | | Krishna Miranda M.D.; CLIA#: [id number]). Diagnostician: Krishna Woods | Allan Miranda MD [...]
--- OUTSIDE RECORDS SUMMARY | ~2019-11-15 | XMS | Encounter Summary ---
Demographics + + + | Address | [address] | | | [place] [address] | + + + | Home Phone [...] Team Providers + +------+ + | Care Materials Recycler Name | Role | Phone | + [...] Rehabilitatio | quadriplegia | [address] [place] | | | | n | at [address] | [address] | [place], | | | | | level (HCC) | [place], | [place] [address] | | | | | Impaired | [place] [address] | Phone: | | | | | mobility and | Phone: | [phone] | | | | | ADLs | [phone] | Fax: | | | | | Procedures | Fax: | [phone] | | | | | pt eval | [phone] | | +--------+ + + + + + Encounter Details +--------+---------+ + + + | Date | Type | Department | Care Team | Description | +--------+---------+ + + + | 03/24/ | Office | [facility] | Chris Priest, | Impaired mobility | | 2016 | Visit | MED CTR THERAPY PT | MD [address] | and activities of | | | | OP [address] | [place], [place] | daily living | | | | [place], [place] | [address] | (Primary Dx); | | | | [address] | | Impaired functional | | | | [phone] | Della Ravi, PT | mobility, balance, | | | | | [address] | gait, and endurance; | | | | | [place], [place] | Quadriplegia, | | | | | [address] | C5-C7, incomplete | | | | | | ([facility]); Posture | | | | | Claudia Bragg, | imbalance; Neck | | | | | DIRECTOR OF PATIENT SAFETY | pain; Bilateral | | | | [...] THERAPY PT OP [address] [place] [address] Physical Therapy Daily Treatment Note Date: 03/24/2015 [...] [place] | | | | | | [address] | | | | | | | [...]
--- OUTSIDE RECORDS SUMMARY | ~2019-11-15 | XMS | Encounter Summary ---
Demographics + + + | Address | [address] | | | [place] [address] | + + + | Home Phone [...] Team Providers + +------+ + | Care Turner Off Name | Role | Phone | + [...] | | | | CENTER [address] | [address] | | | | | [place] | [place] | | | | | [address] | [address] | | | | | [phone] | | | +--------+ + + + [...] 0 | 03/22/19 | | | (MYCOSTATIN) [id number] | | | | 14 | | [...] [place] MD - 03/26/2015 6:39 PM PST [facility] Martinez Abbasi II Emergency Department Encounter Note [address] [place] [address] PCP:Edwar Wilhelm PA-C [phone] eMERGENCY dEPARTMENT eNCOUnter [...] Surgeon: Jonathan Avendaño MD; Location: [facility] CURRENT MEDICATIONS Discharge Medication List as of [...] or Severe Contraindications. Consult references such as ShowEvidence for further information. diazepam (VALIUM) 5 mg [...] tenderness to palpation or major deformities no carne. Back:- No tenderness. Skin: Warm, Dry, No erythema, See above description. Lymphatic: No lymphadenopathy noted. Neurologic: Alert & oriented x 3, Normal motor function, Normal sensory function, No focal deficits noted, no facial assymetry noted. Equal investment recovery technician in all extremities ED COURSE & MEDICAL [...] up with Edwar Wilhelm PA-C. Specialty: Physician Bridge Ironworker Helper-Medical Contact information: [address] [place] [address] Follow up with DEMETRA Patel. Specialty: Nurse Practitioner Contact information: [address] [facility] [phone] Currently patient is otherwise hemodynamically stable. Discharge [...] this chart may have been created with [employer] voice recognition software. Occasi onal wrong-word or [...] [place] | | | | | | [address] | | | | | | | [...] [address] | [place] | [phone] | | [facility] | | [address] | | | - LABORATORY | | [...]
--- OUTSIDE RECORDS SUMMARY | ~2019-11-15 | XMS | Encounter Summary ---
Demographics + + + | Address | [address] | | | [place] [address] | + + + | Home Phone [...] Team Providers + +------+ + | Care Formal Waiter/Waitress Name | Role | Phone | + +------+ + | Edwar Wilhelm PA-C | PCP | | + +------+ + Encounter Details +--------+ + + + + | Date | Type | Department | Care Team | Description | +--------+ + + + + | 09/24/ | Orders Only | [facility] | Provider, | | | 2018 | | SYSTEM GENERIC OP | MD [address] | | | | | [address] | Jocelyn Gamboa. | | | | | [address] [place], [place] | [place] [address] | | | | | [address] | | | | | | [phone] | | | +--------+ + + + [...] [place] | | | | | | [address] | | | | | | | | +--------+ + + + + documented as of this encounter Visit Diagnoses Not on filedocumented in this encounter"
--- OUTSIDE RECORDS SUMMARY | ~2019-11-15 | XMS | Encounter Summary ---
Demographics + + + | Address | [address] | | | [place] [address] | + + + | Home Phone [...] | [facility] | | | and [place] | + + + | Organization | [facility] | | | [...] Providers + +------+ + | Care Senior Accounts Payable Clerk Name | Role | Phone | [...] | | | | OP [address] | [place] | | | | | [place] | [address] | | | | | [address] | | | | | | [phone] | | | +--------+ + + + [...] Ren, PT - 04/03/2015 11[facility]02 [facility] OP [address] [place] [address] Cancellation/No Show Date: 04/03/2015 Patient Information Patient [...] [place] | | | | | | [address] | | | | | | | | +--------+ + + + + documented as of this encounter Visit Diagnoses Not on filedocumented in this encounter"
--- OUTSIDE RECORDS SUMMARY | ~2019-11-15 | XMS | Encounter Summary ---
Demographics + + + | Address | [address] | | | [place] [address] | + + + | Home Phone [...] Author + + + | Author | [facility] | | | and [place] | + + + | Organization | [facility] | | | [...] Providers + +------+ + | Care Sample Supervisor Name | Role | Phone | [...] [place] | | | | | | [address] | | | | | | [phone] | | | +--------+ + + + [...] any question 1-6 is yes. Consult with environmental programs manager prior to visit. S Quadriplegic with [...] [place] | | | | | | [address] | | | | | | | | +--------+ + + + + documented as of this encounter Visit Diagnoses Not on filedocumented in this encounter Home Health Visit - Care Plan + + | Visit Type - SN - REPEAT VISIT | | Discipline - Mcc | + + + + +--------+--------+-------+ + | Problem | Description | Start | Status | Goals | Interventio | | | | Date | | | ns | + + +--------+--------+-------+ + | HH Other Wound | Upper right back | | | - | 1 problem | | Disciplines: | scab healed over | | Active | | | | Mcc | Left buttock hx of | 020 [...] 020 | | | interventio | | Mcc | | | | | n | [...] | | Active | | | | Mcc | | 020 | | | interventio [...] | | Active | | | | Mcc | | 020 | | | interventio [...] | | | | n | | Mcc | | | | | scheduled/d | | | | | | | ocumented | | | | | | | in this | | | | | | | visit | + + +--------+--------+-------+ + | Wound Management | Right buttock | | | - | 1 problem | | Disciplines: | | | Active | | | | Mcc | | 020 | | | interventio [...] to | | | | | | PRIMARY CARE PROVIDER for counseling | | | | | [...]
--- OUTSIDE RECORDS SUMMARY | ~2019-11-15 | XMS | Encounter Summary ---
Demographics + + + | Address | [address] | | | [place] [address] | + + + | Home Phone [...] Author | [facility] | | | and [place] | + + + | Organization | [facility] | | | and [...] Providers + +------+ + | Care Coal Conveyor Operator Name | Role | Phone | + +------+ + | Edwar Wilhelm PA-C | PCP | | + +------+ + Encounter Details +--------+ + + + + | Date | Type | Department | Care Team | Description | +--------+ + + + + | 09/09/ | Documentati | [facility] | JanelleJewely Radha, | | | 2016 | on | MED CTR THERAPY PT | PT [address] | | | | | OP [address] | [place] | | | | | [place] | [address] | | | | | [address] | | | | | | [phone] | | | +--------+ + + + [...] [place] | | | | | | [address] | | | | | | | [...]
--- OUTSIDE RECORDS SUMMARY | ~2019-11-15 | XMS | Encounter Summary ---
Demographics + + + | Address | [address] | | | [place] [address] | + + + | Home Phone [...] Team Providers + +------+ + | Care Trade Show Coordinator Name | Role | Phone | [...] + + | 11/09/ | Emergency | [facility] | Herman Troy, | Cephalgia (Primary | | 2013 | | MED CTR EMERGENCY | MD [address] | Dx); Constipation; | | | | CENTER [address] | [facility] [place] | Urinary tract | | | | [place], [place] | [place] [address] | infection; Autonomic | | | | [address] | [phone] | dysreflexia; | | | | [phone] | | Quadriplegia (HCC); | | | [...] through Care Everywhere.BLADDER INFECTI ON, MALE (ADULT) (TUNISIAN)HEADACHE, UNSPECIFIED (TUNISIAN)DEHYDRATION (ADULT) (TUNISIAN)garry levi in this encounter Medications at Time [...] 0 | 03/22/19 | | | (MYCOSTATIN) [id number] | | | | 14 | | [...] might be different f rom the original. [facility] II Emergency Department Encounter Note [address] [place] [address] PCP:Edwar Wilhelm [phone] CHIEF COMPLAINT Chief Complaint [...] vi sit in 3 days. Specialty: Physician Supervisor Power Reactor-Medical Contact information: [address] [place] [address] New Prescriptions CEPHALEXIN (KEFLEX) 500 MG CAPSULE Take 1 capsule by mouth 4 times daily for 10 days. POLYETHYLENE GLYCOL (MIRALAX) POWDER Mix 17grams into 4-8 oz of juice or water and take by mouth once daily for 2 weeks Herman Troy MD 11/09/13 0740 docume nted in this encounter Miscellaneous Notes Plan of Care - ONBASE SCAN WAMI - 11/11/2013 12:00 AM PDT D Triage [...] | | | | | [place] | | | | | | [address] | | | | | | | [...] + | [facility] | [address] | [place] | [phone] | | [facility] | | [address] | | | - LABORATORY | | | | + + + + + | [facility] | [address] | [place] | | | [facility] | | [address], [facility] | | | - LABORATORY | [...] + | [facility] | [address] | [place], [place] | [phone] | | [facility] | | [address] | | | - LABORATORY | | | | + + + + + | [facility] | [address] | [place], [place] | | | [facility] | | [address] | | [...] [address] | [place] | [phone] | | [facility] | | [address] | | | - LABORATORY | | | | + + + + + | [facility] | [address] | [place] | | | [facility] | | [address] | | | - LABORATORY [...] + | [facility] | [address] | [place], [place] | [phone] | | [facility] | | [address] | | | - LABORATORY | | | | + + + + + | [facility] | [address] | [place], [place] | | | [facility] | | [address], [facility] | | | - LABORATORY | [...] 12 | 7 - 18 mg/dL | [facility] | | | | | | [facility] | | | | | | MEDICAL | | | | | | CENTER - | | | | | | LABORATORY | | + + + + + + | Creatinine | 0.73 | 0.60 - 1.30 | [facility] | | | | | mg/dL | [facility] | | | | | | MEDICAL | | | | | | CENTER - | | | | | | LABORATORY | | + + + + + + | eGFR, | >60Comment: GLOMERULAR | >=60 | [facility] | | | non- | FILTRATION | mL/min/1.73m2 | [facility] | | | Jordanian | RATE,ESTIMATED | | MEDICAL | | | | mL/min/1.70o2Eyel than | | CENTER - | | [...] + | [facility] | [address] | [place], [place] | [phone] | | [facility] | | [address] | | | - LABORATORY | | | | + + + + + | [facility] | [address] | [place], [place] | | | [facility] | | [address] | | | - LABORATORY [...] [address] | [place] | [phone] | | [facility] | | [address] | | | - LABORATORY | | | | + + + + + | [facility] | [address] | [place] | | | [facility] | | [address] | | | - LABORATORY [...] [address] | [place] | [phone] | | [facility] | | [address] | | | - LABORATORY | | | | + + + + + | [facility] | [address] | [place] | | | [facility] | | [address], [facility] | | | - LABORATORY | [...] - 1.030 | [facility] | | | [place], | | | [facility] | | [...] + | [facility] | [address] | [place], [place] | [phone] | | [facility] | | [address] | | | - LABORATORY | | | | + + + + + | [facility] | [address] | [place], [place] | | | [facility] | | [address] | | | - LABORATORY [...] + | MISCELLANEOUS LAB | | | [phone] | + +---------+ + + | MISCELANIOUS LAB | | | [phone] | + +---------+ + + documented in [...]
--- OUTSIDE RECORDS SUMMARY | ~2019-11-15 | XMS | Encounter Summary ---
Demographics + + + | Address | [address] | | | [place] [address] | + + + | Home Phone [...] Team Providers + +------+ + | Care Fire Watchman Name | Role | Phone | + [...] | | | | CENTER [address] | [address] | | | | | [place] | [place] | | | | | [address] | [address] | | | | | [phone] | | | +--------+ + + + [...] 0 | 03/22/19 | | | (MYCOSTATIN) [id number] | | | | 14 | | [...] [place] MD - 03/26/2015 6:39 PM PST [facility] Abb[facility] II Emergency Department Encounter Note [address] [place] [address] PCP:Edwar Wilhelm PA-C [phone] eMERGENCY dEPARTMENT eNCOUnter [...] IS PARAPLEGIC; Surgeon: Jonathan Avendaño MD; Location: [facility] CURRENT MEDICATIONS Discharge Medication List as of [...] or Severe Contraindications. Consult references such as [employer] for further information. diazepam (VALIUM) 5 mg [...] deficits noted, no facial assymetry noted. Equal event coordinator marketing and sales in all extremities ED COURSE & MEDICAL [...] up with Edwar Wilhelm PA-C. Specialty: Physician Rn Transport-Medical Contact information: [address] [place] [address] Follow up with DEMETRA Patel. Specialty: Nurse Practitioner Contact information: [address] [facility] [phone] Currently patient is otherwise hemodynamically stable. Discharge [...] this chart may have been created with [employer] voice recognition software. Occasi onal wrong-word or [...] [place] | | | | | | [address] | | | | | | | [...] [address] | [place] | [phone] | | [facility] | | [address] | | | - LABORATORY | | [...]
--- OUTSIDE RECORDS SUMMARY | ~2019-11-15 | XMS | Encounter Summary ---
Demographics + + + | Address | [address] | | | [place] [address] | + + + | Home Phone [...] Team Providers + +------+ + | Care Varnisher Plasticoater Name | Role | Phone | + +------+ + | Edwar Wilhelm PA-C | PCP | | + +------+ + Encounter Details +--------+ + + + + | Date | Type | Department | Care Team | Description | +--------+ + + + + | 04/21/ | Documentati | [facility] | Della Ravi, | | | 2016 | on | MED CTR THERAPY PT | PT [address] | | | | | OP [address] | [place] | | | | | [place] | [address] | | | | | [address] | | | | | | [phone] | | | +--------+ + + + [...] Ren, PT - 04/21/2015 12:57 PM [facility] OP [address] [place] [address] Cancellation/No Show Date: 04/21/2015 Patient Information Patient [...] [place] | | | | | | [address] | | | | | | | | +--------+ + + + + documented as of this encounter Visit Diagnoses Not on filedocumented in this encounter"
--- OUTSIDE RECORDS SUMMARY | ~2019-11-15 | XMS | Encounter Summary ---
Demographics + + + | Address | [address] | | | [place] [address] | + + + | Home Phone [...] Providers + +------+ + | Care Supervisor Wheel Shop Name | Role | Phone | + [...] ANAIS | | | | n | ([facility]) | [address] | [address] | | | | | Abdominal | [place], | [place] | | | | | spasms | [place] [address] | [address] Phone: | | | | | Muscle spasm | Phone: | [phone] | | | | | of both | [phone] | Fax: | | | | | lower legs | Fax: | [phone] | | | | | Neurogenic | [phone] | | | | | | bladder [...] + + | 09/15/ | Office | [facility] | Diomedes Zarate, | Tetraplegia (HCC) | | 2017 | Visit | PHYSIATRY [address] | [address] | (Primary Dx) | | | | [address] | [address] [place], | | | | | [place] | [place] [address] | | | | | [address] | [phone] | | | | | [phone] | | | +--------+---------+ + + + [...] Medicine Consult Note Diomedes Zarate MD [address] [facility], [address] [place] [address] FAX: CHIEF COMPLAINT: Chief Complaint [...] worked, was ordered by PT in [facility]. Uses transfers with transfer board, independently. #Skin [...] IS PARAPLEGIC; Surgeon: Jonathan Avendaño MD; Location: [facility] CURRENT MEDICATIONS: Current Outpatient Prescriptions Medication Sig [...] pay for another on e. For reference [place] has a wheelchair clinic where vendors are [...] PLAN: -Return to clinic before I leave [facility] in October, otherwise can follow-up with [...] [place] | | | | | | [address] | | | | | | | | +--------+ + + + + documented as of this encounter Visit Diagnoses + + | Diagnosis | + + | Tetraplegia (HCC) - Primary Quadriplegia, unspecified | + + documented in this encounter
--- OUTSIDE RECORDS SUMMARY | ~2019-11-15 | XMS | Encounter Summary ---
Demographics + + + | Address | [address] | | | [place] [address] | + + + | Home Phone [...] Team Providers + +------+ + | Care Cementing Machine Operator Name | Role | Phone [...] | | | | [place] | | [place] [address] | | | | | geal reflux | | Phone: | | | | | disease | | [phone] | | | | | without | | Fax: | | | | | esophagitis | | [phone] | | | | | Abdominal | [...] + + | 12/19/ | Hospital | [facility] | Jonathan Avendaño MD | Dysphagia (Primary | | 2015 | Encounter | MED CTR MP INTRA OP | [address] | Dx); | | | | [address] | [place] | Gastroesophageal | | | | [place] | [address] | reflux disease | | | | [address] | [phone] | without esophagitis | | | | [phone] | | | +--------+ + + + [...] the physician who did your procedure at [phone] if you have any questions or experience any of the following: ? Increasing abdominal pain, nausea, or vomiting. ? Chills and fever over 101F. ? New abdominal swelling or bloating. ? Signs of rectal bleeding (black or red stool). If you cannot get a hold of your physician, then call the [facility] [phone] . If necessary, report to the Emergency Department at [facility]. Quit smoking: If you smoke or have [...] 0 | 01/24/20 | | | (MYCOSTATIN) [id number] | | | | 14 | | [...] [place] | | | | | | [address] | | | | | | | [...] 12/19/2014 | PROVATION | | 11:46 AMMRN: [id number] #: [id number] of : | | | 1970Admit Type: AmbulatoryAge: 44Room: [facility] 02Gender: MaleNote | | | Status: FinalizedAttending MD: Jonathan Avendaño, [facility]AMrocedure: | | | Upper GI endoscopyIndications: Dyspepsia, Dysphagia, | | | Suspected esophageal reflux, NauseaProviders: Jonathan Kang | | | MD Jarocho, Shana Love RN, Karie Vasquez | | | Sridhar, Sales Order Processor, Blane Tompkins MD (Anesthesia | | | [...] the | | | anesthesiologist and the wildlife technician in the pre-procedure area in the [...] Scope In: 11:58:14 AMScope Out: 12:04:18 PM [place] | | | [facility], [address] [place] [address] | | | [phone] | | | - Regular diet. | [...] | | | [facility], [address] [place] [address] [place], [place] | | | [address] | | + + -+ + +---------+ [...] for | | | increased epithelial eosinophils. JVR:[facility]:C2NR GROSS | | | DESCRIPTION: A. [...] cm. All | | | into (C1). yyt:JVR:[facility] PERFORMING LABORATORY: Tissue processing | | | and slide preparation were performed by [facility], [address], [place] [address] (Visual Merchandising Coordinator: Krishna | | Chuck Miranda M.D. CLIA#: [id number]). Professional interpretation was | | | performed by [facility], [facility] | | | Branch, [address] [place] [address] (Visual Merchandising Coordinator: | | | Krishna Miranda M.D.; CLIA#: [id number]). Diagnostician: Krishna | | | Allan Miranda [...]
--- OUTSIDE RECORDS SUMMARY | ~2019-11-15 | XMS | Encounter Summary ---
Demographics + + + | Address | [address] | | | [place] [address] | + + + | Home Phone [...] Team Providers + +------+ + | Care Clarifier Name | Role | Phone | + [...] + | 10/01/ | Telephone | [facility] | Chris Priest, | Other | | 2014 | | PHYSIATRY [address] | [address] | | | | | [address] | [place] | | | | | [place] | [address] | | | | | [address] | | | | | | [phone] | | | +--------+ + + + [...] a s tanding station be sent to [facility]. documented in this encounter Plan of [...] [place] | | | | | | [address] | | | | | | | | +--------+ + + + + documented as of this encounter Visit Diagnoses Not on filedocumented in this encounter"
--- OUTSIDE RECORDS SUMMARY | ~2019-11-15 | XMS | Encounter Summary ---
Demographics + + + | Address | [address] | | | [place] [address] | + + + | Home Phone [...] Team Providers + +------+ + | Care Fixer Supervisor Name | Role | Phone | + +------+ + | Edwar Wilhelm PA-C | PCP | | + +------+ + Encounter Details +--------+ + + + + | Date | Type | Department | Care Team | Description | +--------+ + + + + | 04/21/ | Documentati | [facility] | Della Ravi, | | | 2016 | on | MED CTR THERAPY PT | PT [address] | | | | | OP [address] | [place] | | | | | [place] | [address] | | | | | [address] | | | | | | [phone] | | | +--------+ + + + [...] Ren, PT - 04/21/2015 12:57 PM [facility] OP [address] [place] [address] Cancellation/No Show Date: 04/21/2015 Patient Information Patient [...] [place] | | | | | | [address] | | | | | | | | +--------+ + + + + documented as of this encounter Visit Diagnoses Not on filedocumented in this encounter"
--- OUTSIDE RECORDS SUMMARY | ~2019-11-15 | XMS | Encounter Summary ---
Demographics + + + | Address | [address] | | | [place] [address] | + + + | Home Phone [...] | Author | [facility] | | | and [place] | + + + | Organization | [facility] | [...] Team Providers + +------+ + | Care Raw Stock Machine Feeder Name | Role | Phone | [...] + + | 11/09/ | Emergency | [facility] | Herman Troy, | Cephalgia (Primary | | 2013 | | MED CTR EMERGENCY | MD [address] | Dx); Constipation; | | | | CENTER [address] | [facility] [place] | Urinary tract | | | | [place], [place] | [place] [address] | infection; Autonomic | | | | [address]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 [facility] II Emergency Department Encounter Note [address] [place] [address] PCP:Edwar Wilhelm [phone] CHIEF COMPLAINT Chief Complaint [...] vi sit in 3 days. Specialty: Physician Pharmaceutical Analyst-Medical Contact information: [address] [place] [address] New Prescriptions CEPHALEXIN (KEFLEX) 500 MG CAPSULE Take 1 capsule by mouth 4 times daily for 10 days. POLYETHYLENE GLYCOL (MIRALAX) POWDER Mix 17grams into 4-8 oz of juice or water and take by mouth once daily for 2 weeks Herman Troy MD 11/09/13 0740 docume nted in this encounter Miscellaneous Notes Plan of Care - ONBASE SCAN [place] - 11/11/2013 12:00 AM PDT D Triage [...] | | | | | [place] | | | | | | [address] | | | | | | | [...] + | [facility] | [address] | [place] | [phone] | | [facility] | | [address] | | | - LABORATORY | | | | + + + + + | [facility] | [address] | [place] | | | [facility] | | [address], [facility] | | | - LABORATORY | [...] + | [facility] | [address] | [place], [place] | [phone] | | [facility] | | [address] | | | - LABORATORY | | | | + + + + + | [facility] | [address] | [place], [place] | | | [facility] | | [address] | | | - LABORATORY | [...] [address] | [place] | [phone] | | [facility] | | [address] | | | - LABORATORY | | | | + + + + + | [facility] | [address] | [place] | | | [facility] | | [address] | | | - LABORATORY | [...] + | [facility] | [address] | [place], [place] | [phone] | | [facility] | | [address] | | | - LABORATORY | | | | + + + + + | [facility] | [address] | [place], [place] | | | [facility] | | [address], [facility] | | | - LABORATORY | [...] 12 | 7 - 18 mg/dL | [facility] | | | | | | [facility] | | | | | | MEDICAL | | | | | | CENTER - | | | | | | LABORATORY | | + + + + + + | Creatinine | 0.73 | 0.60 - 1.30 | [facility] | | | | | mg/dL | [facility] | | | | | | MEDICAL | | | | | | CENTER - | | | | | | LABORATORY | | + + + + + + | eGFR, | >60Comment: GLOMERULAR | >=60 | [facility] | | | non- | FILTRATION | mL/min/1.73m2 | [facility] | | | [place] | RATE,ESTIMATED | | MEDICAL | | | | mL/min/1.25d1Cfrm than | | CENTER - | | [...] + | [facility] | [address] | [place], [place] | [phone] | | [facility] | | [address] | | | - LABORATORY | | | | + + + + + | [facility] | [address] | [place], [place] | | | [facility] | | [address] | | | - LABORATORY | [...] [address] | [place] | [phone] | | [facility] | | [address] | | | - LABORATORY | | | | + + + + + | [facility] | [address] | [place] | | | [facility] | | [address] | | | - LABORATORY | [...] [address] | [place] | [phone] | | [facility] | | [address] | | | - LABORATORY | | | | + + + + + | [facility] | [address] | [place] | | | [facility] | | [address], [facility] | | | - LABORATORY | [...] - 1.030 | [facility] | | | [place], | | | [facility] | | [...] + | [facility] | [address] | [place], [place] | [phone] | | [facility] | | [address] | | | - LABORATORY | | | | + + + + + | [facility] | [address] | [place], [place] | | | [facility] | | [address] | | | - LABORATORY | [...] + | MISCELLANEOUS LAB | | | [phone] | + +---------+ + + | MISCELANIOUS LAB | | | [phone] | + +---------+ + + documented in [...]
--- OUTSIDE RECORDS SUMMARY | ~2019-11-15 | XMS | Encounter Summary ---
Demographics + + + | Address | [address] | | | [place] [address] | + + + | Home Phone [...] Team Providers + +------+ + | Care Neurology Teacher Name | Role | Phone | [...] | | | | n | ([facility]) | [address] | [address] | | | | | Abdominal | [place], | [place] | | | | | spasms | [place] [address] | [address] Phone: | | | | | Muscle spasm | Phone: | [phone] | | | | | of both | [phone] | Fax: | | | | | lower legs | Fax: | [phone] | | | | | Neurogenic | [phone] | | | | | | bladder [...] + + | 06/14/ | Office | [facility] | Chris Priest, | Quadriplegia (HCC) | | 2017 | Visit | PHYSIATRY [address] | MD [address] | (Primary Dx); | | | | [address] | [place] | Abdominal spasms; | | | | [place], [place] | [address] | Muscle spasm of both | | | | [address] | | lower legs; | | | | [phone] | | Neurogenic bladder; | | | [...] encounter Patient Instructions Patient Instructions Dia Loza, Respiratory Medicine Physician - 06/14/2016 5:02 PM PDTContin ue with [...] baclofen is n ow being managed through [employer]. Martinez Abbasi II reports that he has increased function in his arms and hands. With yash nuation of physical therapies. He reports that he can now technology officer objects in his right hand. Martinez Abbasi [...] to the cervical region. He has tenodesis technology officer in both hands. He has 4+/5 wrist [...] Martinez Abbasi II has pain contract through [facility] and is advised to continue care [...] MD (Jr.) ELECTRONICALLY SIGNED BY: Dia Loza, E D Tech, 06/14/2016 16:58 I Ashley Ortiz am personally [...] [place] | | | | | | [address] | | | | | | | | +--------+ + + + + + + +--------+ + + | Name | Type | Priori | Associated Diagnoses | Order Schedule | | | | ty | | | + + +--------+ + + | * SARAH KOENIG | Outpatient | Routin | Quadriplegia ([facility]) | Ordered: 06/14/2016 | | Physiatry - [...] | Diagnosis | + + | Quadriplegia ([facility]) - Primary Quadriplegia, unspecified | + + [...]
--- OUTSIDE RECORDS SUMMARY | ~2019-11-15 | XMS | Encounter Summary ---
Demographics + + + | Address | [address] | | | [place] [address] | + + + | Home Phone [...] Team Providers + +------+ + | Care Milking Worker Name | Role | Phone | [...] Rehabilitatio | quadriplegia | [address] | | | | n | at C5-[address] | [address] | [place], | | | | | level (HCC) | [place], | [place] [address] | | | | | Impaired | [place] [address] | Phone: | | | | | mobility and | Phone: | [phone] | | | | | ADLs | [phone] | Fax: | | | | | Procedures | Fax: | [phone] | | | | | pt eval | [phone] | | +--------+ + + + + + Encounter Details +--------+---------+ + + + | Date | Type | Department | Care Team | Description | +--------+---------+ + + + | 02/23/ | Office | [facility] | Chris Priest, | Quadriplegia, C5-C7, | | 2015 | Visit | MED CTR THERAPY PT | MD [address] | incomplete (HCC) | | | | OP [address] | [place], [place] | (Primary Dx); | | | | [place], [place] | [id number] | Posture imbalance; | | | | [address] | | Neck pain; Bilateral | | | | [phone] | Della Ravi, PT | shoulder pain; | | | | | [address] | Impaired mobility | | | | | [place], [place] | and activities of | | | | | [address] | daily living; | | | | [...] 1: Independent with home exercise program for skilled nursing health and 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 Goal 1 Status: initiated HEP Treatment Plan/Interventions: 09796 - PT Evaluation 19419 - Therapeutic Exercise 37428 - Neuromuscular Reeducation 46950 - PT Re-Evaluation 36026 - Gait Training 09333 - Therapeutic Activities 74397 - Manual Therapy 18047 - Self Care/Home Management 77487 - Electrical Stimulation, Attended Requested # of Visits: 24 visits 2x/week for 12 weeks Certification From: 02/23/2015 Certification To: 05/18/2015 Electronically signed by: Della Ren PT, 02/24/2015 13:17 Patient Name: Martinez Abbasi II/: 1970/ Dlela Forbes PT - 6:08 PM PST 6[facility] CTR THERAPY PT OP [address] [place] [address] Physical Therapy Initial Assessment Date: 02/23/2015 Patient [...] 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 [...] IS PARAPLEGIC; Surgeon: Jonathan Avendaño MD; Location: [facility] Family History Problem Relation Age of Onset Substance abuse Mother Substance abuse Father Arthritis Father Heart disease Father High blood pressure Father Stroke Father Allergies Allergen Reactions Bee Venom Swelling Honey Bee Venom Swelling Prior Treatment: Home - within the last sixty days Rehab Precautions Office Visit from 02/23/2015 in [facility] CTR THERAPY PT OP Rehab [...] to/from sit Supine to Sit, Level of Bradley: maximum assist (25% patient effort) Sit to Supine, Level of Bradley: maximum assist (25% patient effort) Safety Issues: decreased use of arms for pushing/pulling, decreased use of legs for bridgin g/pushing, impaired trunk control for bed mobility Impairments: sensation decreased, strength decreased, impaired balance, coordination impair ed, motor control impaired, postural control impaired, sensory feedback impaired, pain Transfers Additional Documentation: bed to/from chair Bed-Chair, Level of Bradley: maximum assist (25% patient effort) Chair-Bed, Level of Bradley: maximum assist (25% patient effort) Uyx-Mjwib-Xtu, Assistive Device: sliding board (SB used for [...] 4-/5 EPL/EPB (C8): 1 to 2-/5 2-/5 Windows Infrastructure Engineer: Poor: able to close partially without using tenodesis Poor: able to close partially w ithout using tenodesis Outcome Measure: Initial Assessment Progress Note / Discharge Spinal Cord Bradley Measure 27/100 Special Tests: Neuro Fabiola Assessments [...] 1: Independent with home exercise program for skilled nursing health and 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 Goal 1 Status: initiated HEP Plan Date of Onset: 02/08/2014 Start of Care Date: 02/23/2015 Requested # of Visits: 24 visits 2x/week for 12 weeks Certification From: 02/23/2015 Certification To: 05/18/2015 Treatment Plan/Interventions 15429 - PT Evaluation 72727 - Therapeutic Exercise 10609 - Neuromuscular Reeducation 06673 - PT Re-Evaluation 76018 - Gait Training 35742 - Therapeutic Activities 74238 - Manual Thera py 35019 - Self Care/Home Management 52967 - Electrical Stimulation, Attended Patient and/or family [...] [place] | | | | | | [address] | | | | | | | [...] | | Referral | | | level ([facility]) | | | | | | Impaired [...]
--- OUTSIDE RECORDS SUMMARY | ~2019-11-15 | XMS | Encounter Summary ---
Demographics + + + | Address | [address] | | | [place] [address] | + + + | Home Phone [...] Team Providers + +------+ + | Care Kitchen Clerk Name | Role | Phone | [...] | | | | | [address] [facility] | | | | | | [place], [place] | | | | | | [address] | | | | | | [phone] | | | +--------+ + + + [...] [place] | | | | | | [address] | | | | | | | | +--------+ + + + + documented as of this encounter Visit Diagnoses Not on filedocumented in this encounter
--- OUTSIDE RECORDS SUMMARY | ~2019-11-15 | XMS | Encounter Summary ---
Demographics + + + | Address | [address] | | | [place] [address] | + + + | Home Phone [...] | [facility] | | | and [place] | + + + | Organization | [facility] | | [...] Team Providers + +------+ + | Care Dog Or Horse Racing Official Name | Role | Phone | + [...] + | 01/16/ | Telephone | [facility] | Chris Priest, | Other | | 2016 | | PHYSIATRY [address] | [address] | | | | | [address] | [place] | | | | | [place] | [address] | | | | | [address] | | | | | | [phone] | | | +--------+ + + + [...] [place] | | | | | | [address] | | | | | | | | +--------+ + + + + documented as of this encounter Visit Diagnoses Not on filedocumented in this encounter"
--- OUTSIDE RECORDS SUMMARY | ~2019-11-15 | XMS | Encounter Summary ---
Demographics + + + | Address | [address] | | | [place] [address] | + + + | Home Phone [...] Team Providers + +------+ + | Care Advanced Practice Professional Name | Role | Phone | + [...] | | | upper | [address] | [place], | | | | | quadrant | [place], [place] | [place] [address] | | | | | Dysphagia | [address] | Phone: | | | | | Gastroesopha | Phone: | [phone] | | | | | geal reflux | [phone] | Fax: | | | | | disease | Fax: | [phone] | | | | | without | [phone] | | | | | | esophagitis [...] | | | | | | | ([facility]) | | | | | | [...] | | | | | | [place] EDG | | | | | | | TRANSORAL | | | | | | | BIOPSY | | | | | | | SINGLE/MULTI | | | | | | | PLE [place] | | | | | | [...] | [address] | [place] | (Primary Dx); | | | | [address] [place] | [address] | Dysphagia; | | | | [address] | [phone] | Gastroesophageal | | | | [phone] | | reflux disease | | | [...] [place] | | | | | | [address] | | | | | | | [...] rule out hepatomegaly COMPARISON:None | [facility] | | FINDINGS: Liver:The liver [...] + | [facility] | [address] | [place], [place] | [phone] | | [facility] | | [address] | | | - IMAGING | | [...]
--- OUTSIDE RECORDS SUMMARY | ~2019-11-15 | XMS | Encounter Summary ---
Demographics + + + | Address | [address] | | | [place] [address] | + + + | Home Phone [...] + + + | Author | [facility] | | | and [place] | + + + | Organization | [facility] | | [...] Team Providers + +------+ + | Care Tooth Cutter Pinion Name | Role | Phone | + [...] | | | | , C5-C7, | [address] | TH[address]AP[address] | | | | | incomplete | [place], | JACQU[place]INE | | | | | ([facility]) | [place] [address] | [place] | | | | | Impaired | Phone: | [address] | | | | | mobility and | [phone] | Phone: | | | | | activities | Fax: | [phone] | | | | | of daily | [phone] | Fax: | | | | | living | | [phone] | +--------+ + + + + + [...] | Quadriplegia | DO [address] | | | | n | ([facility]) | [address] | [place], | | | | | | [address] | [place] [address] | | | | | | [place], | Phone: | | | | | | [place] [address] | [phone] | | | | | | Phone: | Fax: | | | | | | [phone] | [phone] | | | | | | Fax: | | | | | | | [phone] | | +--------+--------+ + + + + Encounter Details +--------+---------+ + + + | Date | Type | Department | Care Team | Description | +--------+---------+ + + + | 09/23/ | Office | [facility] | Chris Priest, | Quadriplegia, C5-C7, | | 2019 | Visit | PHYSIATRY [address] | MD [address] | incomplete (HCC) | | | | [address] | [place] | (Primary Dx); | | | | [place] | [address] | Abdominal spasms; | | | | [address] | | Muscle spasm of both | | | | [phone] | | lower legs; | | | [...] encounter Patient Instructions Patient Instructions Dia Loza, Paraprofessional Education Assistant - 09/24/2019 3:20 PM PDTPhysic al therapy [...] m the original. Chris Priest MD [address] [facility], [address] [place] [address] FAX: PHYSICAL MEDICINE AND REHABILITATION [...] denies concerns or questions at this ti tx. PAST MEDICAL HISTORY: Past Medical History: Diagnosis [...] IS PARAPLEGIC; Surgeon: Jonathan Avendaño MD; Location: [facility] CURRENT MEDICATIONS: Current Outpatient Medications Medication Sig [...] tablet by mouth as needed. nystatin (MYCOSTATIN) 065344 UNIT/GM powder Bid to rash omeprazole (PRILOSEC) [...] has no apparent deficits with short or senior living memory. He has appropriate fund of knowledge Cranial nerves appear grossly intact. Sensory: intact sensation at C7 dermatome to monofilament touch. Absent sensation C8 derm atome to monofilament touch. MOTOR EXAM: (5 IS NORMAL) * Indicates pain limited MUSCLE/ MOVEMENT: RIGHT LEFT Biceps 5 5 Triceps 4+ 4- Wrist Flexion 5 5 Wrist Extension 5 5 Rotary Cutter Operator Strength 2 1 MUSCULOSKELETAL RADIOGRAPHIC REVIEW: No [...] [place] | | | | | | [address] | | | | | | | [...]
--- OUTSIDE RECORDS SUMMARY | ~2019-11-15 | XMS | Encounter Summary ---
Demographics + + + | Address | [address] | | | [place] [address] | + + + | Home Phone [...] Team Providers + +------+ + | Care Nutrition Services Manager Name | Role | Phone | + +------+ + | Edwar Wilhelm PA-C | PCP | | + +------+ + Encounter Details +--------+ + + + + | Date | Type | Department | Care Team | Description | +--------+ + + + + | 12/31/ | Hospital | [facility] | Conversion | | | 2016 | Encounter | CENTER [facility] | Transaction, | | | | | CLINIC [address] | Provider Unknown | | | | | [address] [place], [place] | | | | | | [address] | (Fax) | | | | | [phone] | | | +--------+ + + + [...] 0 | 03/22/19 | | | (MYCOSTATIN) 425314 | | | | 14 | | [...] Instructions by Loren Kumar RN at 01/01/16 7533 Author: Loren Kumar RN Service: Anesthesiology Author Type: Registered Nurse Filed: 01/01/161531 Date of Service: 01/01/161529 Status: Signed Vp Global: Loren Kumar RN (Registered Nurse) Patient stated he saw a process lead in [facility] at [facility], but medical records the re, unable to find any tests, notes, to send. onver román Transaction, Provider Unknown - 01/01/2016 3:21 PM PDT Pre-Procedure Instructions by Loren Kumar RN at 01/01/16 152 Author: Loren Kumar RN Service: Anesthesiology Author Type: Registered Nurse Filed: 01/01/16 1523 Date of Service: 01/01/161520 Status: Signed Vp Global: Loren Kumar RN (Registered Nurse) Unable to [...] [place] | | | | | | [address] | | | | | | | | +--------+ + + + + documented as of this encounter Visit Diagnoses Not on filedocumented in this encounter
--- OUTSIDE RECORDS SUMMARY | ~2019-11-15 | XMS | Encounter Summary ---
Demographics + + + | Address | [address] | | | [place] [address] | + + + | Home Phone [...] Providers + +------+ + | Care Commercial Drone Software Developer Name | Role | Phone | [...] | | | | CENTER [address] | [address] | urinary indwelling | | | | [place], [place] | [place] | Hancock catheter, | | | | [address] | [address] | initial encounter | | | | [phone] | | (HCC) (Primary Dx); | | [...] Care Everywhere.UNDERSTANDING U RINARY TRACT INFECTIONS (UTIS) (LATVIAN)documented in this encounter Medications at Time of [...] 0 | 03/22/19 | | | (MYCOSTATIN) 103693 | | | | 14 | | [...] Wilhelm PA-C. Contact information: [address] [place] [address] I discussed this patient with the [facility] and reviewed prior urine cultures. P [...] urinary indwelling Hancock catheter, initial encounte r ([facility]) 2. Cough 3. Paraplegia following spinal cord injury ([facility]) Eliu Herrera MD 06/04/13 1643 documented in [...] [place] | | | | | | [address] | | | | | | | [...] + | MISCELLANEOUS LAB | | | [phone] | + +---------+ + + | MISCELANIOUS LAB | | | [phone] | + +---------+ + + Culture, Urine [...] + | [facility] [facility] | [address] | [place] | [phone] | | [facility] | | [address] | | | - LABORATORY | | | | + + + + + | [address] | [address] | [place], [place] | | | [facility] | | [address] | | | - LABORATORY [...] - 1.030 | [facility] | | | [place], | | | [facility] | | [...] ST. | [address] | [place] | [phone] | | [facility] | | [address] | | | - LABORATORY | | | | + + + + + | [address] | [address] | [place], [place] | | | [facility] | | [address] | | | - LABORATORY | | [...]
--- OUTSIDE RECORDS SUMMARY | ~2019-11-15 | XMS | Encounter Summary ---
Demographics + + + | Address | [address] | | | [place] [address] | + + + | Home Phone [...] Author + + + | Author | [facility] | | | and [place] | + + + | Organization | [facility] | | | [...] Team Providers + +------+ + | Care Transmission Tester Name | Role | Phone | + +------+ + | Edwar Wilhelm PA-C | PCP | | + +------+ + Encounter Details +--------+ + + + + | Date | Type | Department | Care Team | Description | +--------+ + + + + | 04/15/ | Documentati | [facility] | Della Ravi, | | | 2016 | on | MED CTR THERAPY PT | PT [address] | | | | | OP [address] | [place] | | | | | [place] | [address] | | | | | [address] | | | | | | [phone] | | | +--------+ + + + [...] Ren, PT - 04/15/2015 1:30 [facility] OP [address] [place] [address] Cancellation Date: 04/15/2015 Patient Information Patient Name: [...] [place] | | | | | | [address] | | | | | | | | +--------+ + + + + documented as of this encounter Visit Diagnoses Not on filedocumented in this encounter"
--- OUTSIDE RECORDS SUMMARY | ~2019-11-15 | XMS | Encounter Summary ---
Demographics + + + | Address | [address] | | | [place] [address] | + + + | Home Phone [...] Team Providers + +------+ + | Care Trailer Rental Clerk Name | Role | Phone | [...] [place] | | | | | | [address] | | | | | | [phone] | | | +--------+ + + + [...] [place] | | | | | | [address] | | | | | | | | +--------+ + + + + documented as of this encounter Visit Diagnoses Not on filedocumented in this encounter"
--- OUTSIDE RECORDS SUMMARY | ~2019-11-15 | XMS | Encounter Summary ---
Demographics + + + | Address | [address] | | | [place] [address] | + + + | Home Phone [...] Providers + +------+ + | Care Telemetry Monitor Name | Role | Phone | + [...] | | | | | [address] [facility] | [place] [address] | | | | | [place] [address] | | | | | | [phone] | | | +--------+ + + + [...] [place] | | | | | | [address] | | | | | | | [...]
--- OUTSIDE RECORDS SUMMARY | ~2019-11-15 | XMS | Encounter Summary ---
Demographics + + + | Address | [address] | | | [place] [address] | + + + | Home Phone [...] Team Providers + +------+ + | Care Chaplain Name | Role | Phone | + [...] Rehabilitatio | quadriplegia | [address] | [place] | | | | n | at C5-6 | [address] | [place], | | | | | level (HCC) | [place], | [place] [address] | | | | | Impaired | [place] [address] | Phone: | | | | | mobility and | Phone: | [phone] | | | | | ADLs | [phone] | Fax: | | | | | Procedures | Fax: | [phone] | | | | | pt eval | [phone] | | +--------+ + + + + + Encounter Details +--------+---------+ + + + | Date | Type | Department | Care Team | Description | +--------+---------+ + + + | 06/15/ | Office | [facility] | Chris Priest, | Impaired mobility | | 2016 | Visit | MED CTR THERAPY PT | MD [address] | and activities of | | | | OP [address] | [place] | daily living | | | | [place], [place] | [address] | (Primary Dx); | | | | [address] | | Impaired functional | | | | [phone] | Della Ravi, PT | mobility, balance, | | | | | [address] | gait, and endurance; | | | | | [place], [place] | Quadriplegia, | | | | | [address] | C5-C7, incomplete | | | | | | ([facility]); Posture | | | | | Martin Ravi, | imbalance; 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 Goal 1 Status: progressing. Treatment Plan/Interventions: 60929 - PT Evaluation 84574 - Therapeutic Exercise 44201 - Neuromuscular Reeducation 18960 - PT Re-Evaluation 11675 - Gait Training 95356 - Therapeutic Activities 03814 - Manual Therapy 43899 - Self Care/Home Management 68398 - Electrical Stimulation, Attended Requested # of [...] might be different from t adán original. [facility] CTR THERAPY PT OP [address] [place] [address] Physical Therapy Progress Assessment Re-Certification Date: 06/16/2015 [...] Rehab Precautions Office Visit from 02/23/2015 in [facility] CTR THERAPY PT OP Rehab Precautions Precautions Spinal, Cervical Rehab Learning Style Office Visit from 02/23/2015 in [facility] CTR THERAPY PT OP Learning [...] and they are waiting to hear from [facility]. Patient reports improvements with increased UE/hands and trunk strength/ROM and increased sensation and now feels some into thighs. However continues to report high pain levels in neck/BARRERA and right shoulder/upper back and weakness in LE's/trunk. Pt continues to require assistance wit h transfers/mobility and uses an electric tilt-in space WC for mobility in the house and [facility]. OBJECTIVE: Mobility: Bed Mobility Additional Documentation: supine to/from sit Assistive Device: bed rails Supine to Sit, Level of Burke: moderate assist (50% patient effort) Sit to Supine, Level of Burke: moderate assist (50% patient effort) Safety Issues: decreased use of arms for pushing/pulling, decreased use of legs for bridgin g/pushing, impaired trunk control for bed mobility Impairments: sensation decreased, strength decreased, impaired balance, coordination impair ed, motor control impaired, postural control impaired, sensory feedback impaired, pain Transfers Additional Documentation: bed to/from chair Bed-Chair, Level of Burke: minimum assist (75% patient effort) (assist with LE's to guide knees: bed is higher than WC) Chair-Bed, Level of Burke: moderate assist (50% patient effort) Mxa-Pokpb-Vfy, Assistive Device: sliding board (SB used only [...] (C8): 1 to 2-/5 2-/5 2- 2- Software Specialist: Poor: able to close partially without using tenodesis Poor: able to close partially w ithout using tenodesis poor poor Clonus: positive positive Outcome Measure: Initial Assessment Progress Note / Discharge Spinal Cord Burke Measure Special Tests: Neuro Fabiola Assessments Modified [...] 1: Independent with home exercise program for director long term care health and 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 Goal 1 Status: progressing. Plan Date of Onset: 02/08/2014 Start of Care Date: 02/23/2015 Requested # of Visits: 24 visits 2x/week for 12 weeks Certification From: 06/16/2015 Certification To: 09/09/2015 Treatment Plan/Interventions 60036 - PT Mkshvyksum76057 - Therapeutic Xqwsuqgm12551 - Neuromuscular Tlbjqdwogtb96949 - P T Re-Etyvwiqltv08247 - Gait Zauwhxmc53769 - Therapeutic Kirnbmzuai37320 - Manual Uwbgbkr0638 5 - Self Care/Home Ztqvbgzdbd51961 - Electrical Stimulation, Attended Patient and/or family [...] [place] | | | | | | [address] | | | | | | | [...]
--- OUTSIDE RECORDS SUMMARY | ~2019-11-15 | XMS | Encounter Summary ---
Demographics + + + | Address | [address] | | | [place] [address] | + + + | Home Phone [...] Team Providers + +------+ + | Care Forensic Photographer Name | Role | Phone | + [...] | | | | , C[address]-C7 | [address] | [place], | | | | | complete | [place], | [place] [address] | | | | | (HCC) | [place] [address] | Phone: | | | | | Neurogenic | Phone: | [phone] | | | | | bladder | [phone] | Fax: | | | | | | Fax: | [phone] | | | | | | [phone] | | + + + + + [...] St | | | | n | (FORMER[facility]) | UPDATE | [place], | | | | | | | [place] [address] | | | | | | | Phone: | | | | | | | [phone] | | | | | | | Fax: | | | | | | | [phone] | +--------+--------+ + + + + Encounter Details +--------+---------+ + + + | Date | Type | Department | Care Team | Description | +--------+---------+ + + + | 07/17/ | Office | [facility] | Chris Priest, | Quadriplegia, C5-C7 | | 2013 | Visit | PHYSIATRY [address] | MD [address] | complete (HCC) | | | | [address] | [place] | (Primary Dx); | | | | [place] | [phone] | Abdominal spasms; | | | | [address] | | Muscle spasm of both | | | | [phone] | | lower legs; | | | [...] office note has been dictated. Job ID# [id number] signed by Chris Priest MD at 07/17/2013 2:50 PM Lauren Guajardo RN - 07/17/2013 11:46 AM PDTPatient states he is hear for a consult regarding care of his spine. States pain to neck, 05/06. Electronically signed by Lauren Troy RN at 4 2:50 PM Chris Ware MD - 07/17/2013 12:00 AM [facility] [address] [place] [address] [place] [address] FAX: [phone] OFFICE VISIT PRIMARY CARE PROVIDER: Bridger Wilhelm [...] as a result. He was taken to [facility] and then transported to [facility], where he had surgical reduction for a C5-6 spinal cord injury and dislocation of bones. Sub sequently, he participated in acute inpatient rehabilitation at [facility]. He was discharged from [facility] at the end of February 2013. [...] and urinary sepsis. He was hospitalized at [facility] in the ICU for autonomic dysreflexia [...] Stephanie lift for transfers. He uses fabiola [employer] wheelchair, which he is able to control. [...] trength bilaterally. Trace thumb movement and hand hydrometer calibrator strength bilaterally. Hand closure is with tenodesis. [...] relief in his wheelchair minimum of ev angelian 20 minutes. He is instructed that if necessary, he should purchase a timer to remind garo borja to do pressure relief. We discussed that every 2 hours he needs to be doing pressure reli ef while in bed, rolling from [id number]-[id number], or to new position. In regard to [...] etc. Greater than an hour was spent [id number] today with Mr. Abbasi, over half of which was spent formulating and discussing his medical treatment plan. Thank you for allowing me to be involved in the care of your the patient. If you have any questions regarding the care of Mr. Abbasi, please do not hesitate to call. Chris Priest Jr, MD JACKIE / RS JOB #: [id number] cc: JANIE Byrnes-C P DTdocumented in this encounter Miscellaneous Notes Miscellaneous - ONBASE SCAN [facility] - 07/17/2013 12:00 AM PDT iscellaneous - ONBASE SCAN [facility] - 07/09/2013 12:00 AM PDTEle ctronically signed by jett [facility] at 07/23/2013 3:27 PM PDTdocumented in this [...] [place] | | | | | | [address] | | | | | | | | +--------+ + + + + + + +--------+ + + | Name | Type | Priori | Associated Diagnoses | Order Schedule | | | | ty | | | + + +--------+ + + | * [facility] Urology | Outpatient | Routin | Quadriplegia, | Ordered: 07/17/2013 | | - AMB Referral | Referral | e | C5-C7 complete ([facility]) | | | | | | Neurogenic bladder | | + + +--------+ + + documented as of this encounter Visit Diagnoses + + | Diagnosis | + + | Quadriplegia, C5-C7 complete ([facility]) - Primary Quadriplegia, C5-C7, complete | [...]
--- OUTSIDE RECORDS SUMMARY | ~2019-11-15 | XMS | Encounter Summary ---
Demographics + + + | Address | [address] | | | [place] [address] | + + + | Home Phone [...] Team Providers + +------+ + | Care Network Project Manager Name | Role | Phone | [...] | | | | | Procedures | [address] | [address] | | | | | 10/21 PEND | [place], | [address] | | | | | [place] | [place] [address] | [place] | | | | | | Phone: | [phone] | | | | | | [phone] | Phone: | | | | | | Fax: | [phone] | | | | | | [phone] | Fax: | | | | | | | [phone] | +--------+ + + + + + Encounter Details +--------+---------+ + + + | Date | Type | Department | Care Team | Description | +--------+---------+ + + + | 12/08/ | Office | [facility] | Jonathan Avendaño MD | Dysphagia (Primary | | 2015 | Visit | GASTROENTEROLOGY | [address] | Dx); RUQ pain; | | | | [address] [facility] | [place], [place] | Constipation, | | | | [address] [place], [place] | [address] | unspecified | | | | [address] | [phone] | constipation type | | | | [phone] | | | +--------+---------+ + + + [...] MD - 12/08/2014 3:50 PM PDT [facility] GA[facility]OLOGY [address] [facility] [address] OFFICE CONSULTATION JONATHAN AVENDAÑO MD Patient: MARTINEZ ABBASI Admitting: MR #: [id number] LOC: PT TYPE: Adm Date: 12/08/2014 : [...] Transcribed on 12/09/2014 06:55:04 by danilo job# [id number] Confirmation #: [id number] cc: EDWAR GREENFIELD PAC documented in this [...] 12/24/ | Office | Physical Medicine | Crhis Priest, | | | 2019 | Visit | and Rehabilitation | MD [address] | | | | | | [place] | | | | | | [address] | | | | | | | [...]
--- OUTSIDE RECORDS SUMMARY | ~2019-11-15 | XMS | Encounter Summary ---
Demographics + + + | Address | [address] | | | [place] [address] | + + + | Home Phone [...] Team Providers + +------+ + | Care Database Analyst Name | Role | Phone | + +------+ + | Edwar Wilhelm PA-C | PCP | | + +------+ + Encounter Details +--------+ + + + + | Date | Type | Department | Care Team | Description | +--------+ + + + + | 03/02/ | Hospital | [facility] | Chase Montalvo, | | | 2017 | Encounter | [facility] | [address] | | | | | [address] | [address] | | | | | [place], [place] | [place] [address] | | | | | [address] | [phone] | | | | | [phone] | | | +--------+ + + + [...] 0 | 03/22/19 | | | (MYCOSTATIN) [id number] | | | | 14 | | [...] Date of Service: 03/02/16 1016 Status: Signed Senior Maintenance Mechanic: Steffany Wiseman RN (Registered Nurse) Patient discharged [...] Date of Service: 03/02/16 0752 Status: Signed Senior Maintenance Mechanic: Chase Montalvo MD (Physician) [facility] Service: Urology Initial Consult Note Patient: Martinez [...] had a couple of occasions with a 16-Pashto catheter wherein they became clogged with m ucus, but these were managed at that time. He is otherwise doing well. He is not on any bloo d thinners. He has had no previous abdominal surgeries. REVIEW OF OUTSIDE RECORDS Summary of pertinent findings: to be scanned in. Previously with [address] Renny leroy. PMH: CVA [...] Date of Service: 03/02/16 0754 Status: Signed Senior Maintenance Mechanic: Chase Montalvo MD (Physician) [facility] Service: Urology Operative Note Pre-operative Diagnosis: Neurogenic bladder Post-operative Diagnosis: Same Procedure(s): Cystoscopy with punch suprapubic tube placement Surgeon: Chase Montalvo MD Front End Assistant(s): none Anesthesia: General LMA Estimated Blood Loss: [...] The dilator was removed and an 18 luxembourgish catheter was advanced through the sheath and [...] patient tolerated the procedure well. Condition: Stable Chaes Montalvo MD 03/02/2016 documentkaren d in this [...] [place] | | | | | | [address] | | | | | | | | +--------+ + + + + documented as of this encounter Visit Diagnoses Not on filedocumented in this encounter
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
[2019-11-15] MEDS ORDERED: GABAPENTIN600 MG PO (14:42)
--- NOTE | 2019-11-16 07:32 | EKG ---
[facility] [address] [facility] [place], [place] [address] Signed Normal sinus rhythm Indeterminate axis Borderline ECG When compared with ECG of 25-MAR-2019 12:23, QRS axis shifted right Confirmed by SIMON CRESPO MD ([id number]) on 11/16/2019 7:32:34 AM Electronically Signed By: SIMON CRESPO MD 11/16/19 0732 PATIENT NAME: JONATHANWILLY ARRINGTON Electrocardiogram DATE OF : 70 PHYSICIAN: SIMON CRESPO MD REPORT #: [id number] REPORT IS CONFIDENTIAL AND NOT TO BE RELEASED WITHOUT AUTHORIZATION
--- NOTE | 2019-11-16 23:29 | PATH ---
[facility] [address] [place], [place] [address] Signed ORDERING PHYSICIAN: Chay Stout MD PATIENT NAME: WILLY CASTILLO II GENDER: M : 1970 SPECIMEN(S): MOLECULAR PATHOLOGY RESULTS: SARS-CoV-2 Not Detected ADDITIONAL NOTES.: The [place] Fusion SARS-CoV-2 Assay is a multiplex real-time PCR (RT-PCR) in vitro diagnostic test intended for the qualitative detection of RNA from SARS-CoV-2 from individuals who meet COVID-19 clinical and/or epidemiological criteria. In general, SARS-CoV-2 RNA can be detected during the acute phase of infection. Positive results indicate the presence of SARS-CoV-2 RNA. Clinical correlation with patient history and other diagnostic information is necessary to determine patient infection status. Positive results do not rule out bacterial infection or co-infection with other viruses. Negative results do not preclude SARS-CoV-2 infection and should not be used as the sole basis for patient management decisions. Negative results must be combined with other clinical observations, patient history, and epidemiological information. The [place] Fusion SARS-CoV-2 Assay is not yet approved or cleared by the [place] FDA. When there are no FDA-approved or cleared tests available, and other criteria are met, FDA can make tests available under an emergency access mechanism called an Emergency Use Authorization (EUA). The EUA for this test is supported by the Stores Laborer of Health and Human Service's (HHS's) declaration that circumstances exist to justify the emergency use of in vitro diagnostics for the detection and/or diagnosis of the virus that causes COVID-19. This EUA will remain in effect for the duration of the COVID-19 declaration justifying emergency of IVDs, unless it is terminated or revoked by FDA, after which the test may no longer be used. The [place] Fusion SARS-CoV-2 Assay is for use only under EUA in US laboratories certified under the Clinical Laboratory Improvement Amendments of 1988 (CLIA) to perform high complexity tests. [facility] is certified under CLIA to perform high complexity PATIENT NAME: WILLY CASTILLO II PATHOLOGY DATE OF : [birth year] REPORT #: [id number] PHYSICIAN: BENJAMIN PARHAM PCP: ARIANA AGOSTO REPORT IS CONFIDENTIAL AND NOT TO BE RELEASED WITHOUT AUTHORIZATION [address] [address] Signed clinical laboratory testing. PERFORMING LABORATORY.: Molecular testing was performed by [facility] [place] [address] (Security Patrol Officer: Goran Hawkins D.O.; CLIA#: [id number]) Diagnostician: System Interface Pathologist Electronically Signed 11/16/2019 Copies: ~ PATIENT NAME: WILLY CASTILLO II PATHOLOGY DATE OF : [birth year] REPORT #: [id number] PHYSICIAN: BENJAMIN PATHOLOGY PCP: ARIANA AGOSTO REPORT IS CONFIDENTIAL AND NOT TO BE RELEASED WITHOUT AUTHORIZATION
[2019-11-20] MEDS ORDERED: LEVOFLOXACIN750 MG PO (14:14)
== END 2019-11-21 13:11 | disposition home or self-care (01) | DRG 698 ==
LOC: ED 13:13 → MS 17:17
PROVIDERS: ADMIT Internal Medicine; ATTEND Internal Medicine
DX: T83.511A Infection and inflammatory reaction due to indwelling urethral catheter, initial encounter (principal); L89.153 Pressure ulcer of sacral region, stage 3; A41.52 Sepsis due to Pseudomonas; A41.01 Sepsis due to Methicillin susceptible Staphylococcus aureus; G82.54 Quadriplegia, C5-C7 incomplete; K59.2 Neurogenic bowel, not elsewhere classified; Z20.828 Contact with and (suspected) exposure to other viral communicable diseases; N39.0 Urinary tract infection, site not specified; L08.9 Local infection of the skin and subcutaneous tissue, unspecified; B95.1 Streptococcus, group B, as the cause of diseases classified elsewhere; N31.9 Neuromuscular dysfunction of bladder, unspecified; G90.4 Autonomic dysreflexia; K59.00 Constipation, unspecified; N21.0 Calculus in bladder; S14.107S Unspecified injury at C7 level of cervical spinal cord, sequela; V89.2XXS Person injured in unspecified motor-vehicle accident, traffic, sequela; Z79.899 Other long term (current) drug therapy; Z79.82 Long term (current) use of aspirin
CPT/HCPCS: 36415; 72193; 80048; 80053; 80202; 81001; 83605; 83735; 85025; 87040; 87070; 87075; 87077; 87088; 87186; 87205; 93005; 93010; 96361; 96365; 96368; 97110; 97112; 97162; 97166; 99285-25; A9270; C9803; J0692; J1956; J3370; J7030; J7060; J7121; Q9967

== ENCOUNTER 2020-02-10 06:00 | Day surgery (SDC) | payer MEDICARE, OTHER ==
[~2020-02-10] VITALS: Ht 177.8 cm; Wt 128.8 kg
--- NOTE | ~2020-02-10 | OR ---
[facility] [address], [place] [address] Draft DATE OF OPERATION: 02/10/2020 SURGEON: Cheo Hutchison MD PREOPERATIVE DIAGNOSES: 1. A 2 cm bladder calculus. 2. Recurrent urinary tract infection. 3. Neurogenic bladder. POSTOPERATIVE DIAGNOSES: 1. A 2 cm bladder calculus. 2. Recurrent urinary tract infection. 3. Neurogenic bladder. PROCEDURES: 1. Diagnostic cystoscopy. 2. Cystolitholapaxy (2 cm bladder calculus). 3. Exchange of 18-Tristanian suprapubic tube. ANESTHESIA: General. ESTIMATED BLOOD LOSS: Minimal. COMPLICATIONS: None. SPECIMENS: None. DRAINS: An 18-Tristanian Hancock catheter inserted into the patient's bladder as a suprapubic tube, connected to gravity drainage. INDICATIONS FOR PROCEDURE: Mr. Muniz is a very pleasant 49-year-old gentleman with a history of neurogenic bladder, who is well known to me. He has been experiencing recurrent UTIs for the past year or so now. Earlier this year, he underwent KUB, which did reveal multiple bladder calculi, largest of which measured around 2 cm. He subsequently underwent cystoscopy PATIENT NAME: WILLY CASTILLO II OPERATIVE REPORT DATE OF : [birth year] REPORT #: [id number] PHYSICIAN: CHEO HUTCHISON MD PCP: ARIANA AGOSTO REPORT IS CONFIDENTIAL AND NOT TO BE RELEASED WITHOUT AUTHORIZATION [facility] [address] [place], [place] [address] Draft with bladder stone extraction under local anesthesia in the office. However, I was unable to successfully extract a 2 cm stone due to the patient's discomfort. He presents today to undergo extraction of his known 2 cm bladder calculus under general anesthetic. OPERATIVE FINDINGS: On cystoscopy, there was no evidence of any suspicious masses or lesions. There was an approximately 2 cm bladder stone located within the bladder. This stone was fragmented using a holmium laser at 8 and 1 settings and the fragments were then irrigated from the patient's bladder using a Simran syringe. His existing 18-Tristanian suprapubic tube was removed, and a fresh 18-Tristanian Hancock catheter was inserted into the patient's bladder as a suprapubic tube and connected to gravity drainage. DESCRIPTION OF PROCEDURE: After informed consent was obtained, the patient was taken to the operating room. He was transferred from the [facility] to the operating room table, where general anesthesia was induced. He was placed in the dorsal lithotomy position and the genitalia prepped and draped in a standard sterile fashion. His existing suprapubic tube was prepped into the operative field. The patient's urethra was then dilated from 18-Tristanian to 28-Tristanian using Pontiac sounds without difficulty. Using 30-degree lens on a 22.5-Tristanian introducer, rigid cystoscope was inserted through his urethra into his bladder under direct visualization. Panendoscopic views of the bladder were then obtained. Please see above findings. I located the 2 cm bladder calculus. I then advanced a 400 micron laser fiber into the patient's bladder. The stone was then fragmented using the holmium laser at 8 and 1 settings. The stone fragmented easily and completely. I then irrigated the stone fragments from the patient's bladder using a Simran syringe. I repeated cystoscopy, which revealed no evidence of any stone fragments present within the patient's bladder. The patient's bladder was then irrigated a few more times and the cystoscope was then removed. I then turned my attention to exchange of the suprapubic tube. The existing suprapubic tube was removed once the catheter balloon was deflated. I thoroughly prepped the patient's suprapubic tract using Betadine solution. I then inserted a fresh 18-Tristanian Hancock catheter into the patient's suprapubic tract and into the bladder. I filled the balloon with 10 mL of sterile water. The patient's bladder was then mainly irrigated using a cath tip syringe with approximately 200 mL of water. The patient's bladder irrigated normally with the new suprapubic tube in place. Once placement of the tube was confirmed, I allowed the suprapubic tube to drain completely and then it was attached to a fresh gravity bag. A B and O suppository was then placed. The procedure was then terminated, the patient tolerated the procedure well without complication. He will now be transferred to the postanesthesia care unit in stable condition. PATIENT NAME: WILLY CASTILLO II OPERATIVE REPORT DATE OF : [birth year] REPORT #: [id number] PHYSICIAN: CHEO HUTCHISON MD PCP: ARIANA AGOSTO REPORT IS CONFIDENTIAL AND NOT TO BE RELEASED WITHOUT AUTHORIZATION [address] [address] [place] DISPOSITION: I discussed the details of today's procedure with the patient's mother and answered all of questions. He will be sent home with Percocet 5/325, dispense #15 as needed for pain. I also told him to continue his Cipro for the next 5-7 days. He was given additional prescription for Cipro 500 mg p.o. b.i.d. today. I made it clear to the patient's mother that he will need to undergo surveillance KUB around every six months to be sure he does not develop more bladder stones in the future. He verbalized understanding of this today. He has been scheduled to return to clinic in April for his first postoperative evaluation. MD JARRELL Hoffman/ROHAN /[id number] Copies: ~ PATIENT NAME: WILLY CASTILLO II OPERATIVE REPORT DATE OF : [birth year] REPORT #: [id number] PHYSICIAN: CHEO HUTCHISON MD PCP: ARIANA AGOSTO REPORT IS CONFIDENTIAL AND NOT TO BE RELEASED WITHOUT AUTHORIZATION
[~2020-02-10 06:00] MED LIST changes: +CIPRO500 MG PO; +LEVOFLOXACIN750 MG PO
== END 2020-02-10 11:00 | disposition home or self-care (01) ==
LOC: DS 06:00 → OPS 06:00 → DS 06:45 → OPS 06:45
PROVIDERS: ATTEND Urology
PROC: 0TCB8ZZ Extirpation of Matter from Bladder, Via Natural or Artificial Opening Endoscopic (ICD-10-PCS; principal; 2020-02-10 06:45)
DX: N21.0 Calculus in bladder (principal); N39.0 Urinary tract infection, site not specified; N31.9 Neuromuscular dysfunction of bladder, unspecified; I10 Essential (primary) hypertension; J45.909 Unspecified asthma, uncomplicated; K21.9 Gastro-esophageal reflux disease without esophagitis; F32.9 Major depressive disorder, single episode, unspecified; G82.50 Quadriplegia, unspecified; G47.30 Sleep apnea, unspecified; F17.210 Nicotine dependence, cigarettes, uncomplicated; Z79.899 Other long term (current) drug therapy; Z91.030 Bee allergy status; Z79.82 Long term (current) use of aspirin; Z87.442 Personal history of urinary calculi
CPT/HCPCS: 00910; J0690; J1100; J1580; J1885; J2001; J2405; J2704; J3010; J7121

== ENCOUNTER 2020-10-07 00:29 | Emergency (ER) | payer MEDICARE, OTHER ==
[~2020-10-07] VITALS: Ht 177.8 cm; Wt 128.5 kg
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
[2020-10-07] MEDS ORDERED: CEPHALEXIN500 MG PO (02:24)
== END 2020-10-07 03:09 | disposition home or self-care (01) ==
LOC: ED 00:29
DX: T83.098A Other mechanical complication of other urinary catheter, initial encounter (principal); N39.0 Urinary tract infection, site not specified; Z91.030 Bee allergy status; Z79.899 Other long term (current) drug therapy; Z79.82 Long term (current) use of aspirin
CPT/HCPCS: 51702; 81001; 99283-25; J0696

== ENCOUNTER 2020-11-10 22:55 | Inpatient (IN) | payer MEDICARE, OTHER ==
[~2020-11-10] VITALS: Ht 177.8 cm; Wt 114.5 kg
[~2020-11-10 22:55] MED LIST changes: -DIPHENOXYLATE-1 EACH PO
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
[2020-11-11] MEDS ORDERED: OMEPRAZOLE40 MG PO (10:21)
[2020-11-11] MEDS ORDERED: DIPHENOXYLATE-1 EACH PO (10:21)
[2020-11-11] MEDS ORDERED: NYSTATIN15 G2 TOP (10:22)
[2020-11-11] MEDS ORDERED: HYDROCODON-ACE1 EA11 PO (10:25)
[2020-11-13] MEDS ORDERED: TIZANIDINE HCL4 MG PO (07:40)
[2020-11-13] MEDS ORDERED: MIDODRINE HCL5 MG PO (07:40)
[2020-11-13] MEDS ORDERED: BACLOFEN10 MG PO ×2 (07:42)
[2020-11-13] MEDS ORDERED: HYDROCODON-ACE1 EA11 PO (07:42)
[2020-11-13] MEDS ORDERED: GABAPENTIN600 MG PO (07:43)
[2020-11-13] MEDS ORDERED: DIPHENOXYLATE-1 EACH PO (07:43)
[2020-11-13] MEDS ORDERED: LEVOFLOXACIN500 MG PO (10:22)
== END 2020-11-13 16:55 | disposition home or self-care (01) | DRG 698 ==
LOC: ED 22:55 → CCU 11-11 04:19 → MS 11-11 21:35
PROVIDERS: ADMIT Internal Medicine; ATTEND Internal Medicine
DX: T83.098A Other mechanical complication of other urinary catheter, initial encounter (principal); G82.50 Quadriplegia, unspecified; R65.20 Severe sepsis without septic shock; A41.51 Sepsis due to Escherichia coli [E. coli]; T83.518A Infection and inflammatory reaction due to other urinary catheter, initial encounter; K59.2 Neurogenic bowel, not elsewhere classified; E87.2 Acidosis; L03.315 Cellulitis of perineum; Y84.6 Urinary catheterization as the cause of abnormal reaction of the patient, or of later complication, without mention of misadventure at the time of the procedure; N30.90 Cystitis, unspecified without hematuria; Z20.822 Contact with and (suspected) exposure to COVID-19; I95.89 Other hypotension; E66.9 Obesity, unspecified; L89.159 Pressure ulcer of sacral region, unspecified stage; N31.9 Neuromuscular dysfunction of bladder, unspecified; G90.4 Autonomic dysreflexia; Z91.038 Other insect allergy status; Z79.899 Other long term (current) drug therapy; Z68.34 Body mass index [BMI] 34.0-34.9, adult
CPT/HCPCS: 71045; 74177; 80048; 80053; 80202; 81001; 83605; 85025; 87088; 97161; 97167; A9270; C9803; J0692; J1650; J3370; J3480; J7030; J7060; Q9967; U0003

== ENCOUNTER 2021-07-03 06:59 | Inpatient (IN) | payer MEDICARE, OTHER ==
[~2021-07-03] VITALS: Ht 177.8 cm; Wt 127.7 kg
[~2021-07-03 06:59] MED LIST changes: +DIPHENOXYLATE-1 EACH PO; +HYDROCODON-ACE1 EA11 PO; +LEVOFLOXACIN500 MG PO; +MIDODRINE HCL5 MG PO; +NYSTATIN15 G2 TOP
[2021-07-03] MEDS ORDERED: CALCIUM 600 MG1 EAC7 PO (07:22)
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
--- NOTE | 2021-07-03 12:20 | NUR ---
50 YEAR OLD MALE PATIENT ADMITTED TO CCU FROM ED VIA STRETCHER UNDER DR. BEARD WITH DX OF UTI/SEPESIS. PATIENT HAS HX OF QUADRIPLEPI, HE DOES HAVE LIMITED MOVEMENT OF SHOULDERS, ARMS AND HANDS. HE IS ABLE TO FEED HIMSELF. UPON ADMIT, PATIENT IS ALERT, ORIENTED AND COOPERATIVE. C/O PAIN IN NECK AND SHOULDERS. ASKING FOR PAIN MEDICATION. SP CATH IS PATENT WITH CLOUDY YELLOW URINE. SP CATH WAS CHANGED BY RN IN THE ED. PATIENT HAS AUTONOMIC DYSREFLEXIA. ADMISSION PROCESS STARTED.
--- NOTE | 2021-07-03 13:00 | NUR ---
ROUTINE MEDICATIONS GIVEN. PATIENT IS ABLE TO SWALLOW WITHOUT PROBLEMS. FAN NOW AT BEDSIDE. SITTING UP IN BED FOR LUNCH. DENIES NAUSEA.
--- NOTE | 2021-07-03 14:00 | NUR ---
FLEETS EMEMA GIVEN, RESULTS EXTRA LARGE FROM ENEMA. PATIENT HAS BEEN TAKING LARGE AMOUNT OF WATER.
[2021-07-03] MEDS ORDERED: ZANAFLEX4 MG PO (14:19)
[2021-07-03] MEDS ORDERED: TRAZODONE HCL50 MG PO (14:20)
[2021-07-03] MEDS ORDERED: VITAMIN C500 M1 PO (14:21)
[2021-07-03] MEDS ORDERED: TYLENOL EXTRA500 MG PO (14:23)
[2021-07-03] MEDS ORDERED: DULCOLAX10 MG PR (14:24)
[2021-07-03] MEDS ORDERED: VOLTAREN ARTHRI20 GM TOP (14:25)
--- NOTE | 2021-07-03 14:37 | NUR ---
MED REC COMPLETE
--- NOTE | 2021-07-03 15:33 | NUR ---
RESTING. IVF AT 125 INFUSING. LAYING ON L SIDE.
--- NOTE | 2021-07-03 16:00 | NUR ---
ASSESSMENT DONE. HAS BEEN NAPPING.
--- NOTE | 2021-07-03 18:00 | NUR ---
took dinner well. has been using acepella. HAS OCC COUGH. SITTING UP IN BED WATCHING TV.
--- NOTE | 2021-07-03 20:48 | NUR ---
PATIENT REQUEST HIS HOME DOSE OF TRAZADONE, UNSURE OF DOSE. NOT FOUND ON MED REC FROM FACILITY. CALLED AND SPOKE TO RN, VERIFIED 50 MG TRAZODONE HS. DISCUSSED WITH MD; ORDER TO BE ADDED BY HIM.
--- NOTE | 2021-07-03 21:41 | NUR ---
PATIENT PROVIDED WITH EVENING MEDS. SHEETS UNDER HIM SMOOTHED AND REPOSITIONED. PATIENT IS ORIENTED X4. DENIES NEED FOR PRN PAIN MEDS. PATIENT IS TOLERATING ROOM AIR. VS STABLE. LUNGS ARE CLEAR. BARRIENTOS HAS GOOD URINE OUTPUT. QS AND CLEAR. PATIENT HAD SNACKS AND IS IN GOOD SPIRIRTS. IV SITES WNL X2. CALL LIGHT IN REACH.
--- NOTE | 2021-07-03 22:24 | NUR ---
CALL LIGHT ON. pt REQUESTED PRN PAIN MEDICATION FOR 10/06 PAIN, (SEE MAR). ASSISTED pt TO REPOSITION LEGS AND BACK. NO FURTHER REQUESTS AT THIS TIME. CALL LIGHT WITHIN REACH.
--- NOTE | 2021-07-03 23:29 | NUR ---
ASSISTED PATIENT TO REPOSITION TO HIS LEFT SIDE. PILLOWS PLACED PER PATIENT REQUEST TO [place] AREA. PATIENT DENIED ANY OTHER NEEDS. VS STABLE. CALL LIGHT IN REACH.
--- NOTE | 2021-07-04 02:00 | NUR ---
PATIENT RESTING WITH EYES CLOSED AND VS STABLE. BARRIENTOS EMPTIED. ALLOWED PATIENT TO REST. CALL LIGHT IN REACH.
--- NOTE | 2021-07-04 05:30 | NUR ---
PATIENT AWAKE AND REPORTS FEELING WELL. VS STABLE. NO CHANGE IN ASSESSMENT.
--- NOTE | 2021-07-04 06:30 | NUR ---
TURNED PATIENT TO HIS BACK. IV FLUIDS IN STAND-BY. IV SITES WNL.
--- NOTE | 2021-07-04 07:30 | NUR ---
REPORT RECIEVED. PATIENT IS IN BED LISTENING TO MUSIC. IS W/O REQUESTS.
--- NOTE | 2021-07-04 11:00 | NUR ---
C/O ABD CRAMPS. AKING WHY HE IS HAVING THESE. TOLD PATIENT WE WILL TALK WITH DR. BEARD ABOUT THIS.
--- NOTE | 2021-07-04 11:48 | NUR ---
dr. smalls has been here to see patient. patient will be transferred to medical floor. possible will stay in ICU HOUSE CONVENIENCE. PATIENT DENIES PAIN. ALLEVYN APPLIED TO SMALL OPEN AREA ON RIGHT SIDE BETWEEN THIGH AND BUTTOCKS. ALLEVYN ALSO APPLIED TO COCCYX.
--- NOTE | 2021-07-04 16:08 | NUR ---
ASSESSMENT DONE. HAS BEEN SITTING UP IN BED WATCHING TV. SP CATH REMAINS PATENT. BED BATH GIVEN EARLIER, TOLERATED WELL. NOW IS LAYING ON LEFT SIDE. HAS BEEN TAKING IN PO FLUIDS WELL.
--- NOTE | 2021-07-04 18:05 | NUR ---
took dinner well. no changes.
--- NOTE | 2021-07-04 19:30 | NUR ---
SHIFT REPORT RECIEVED. PATIENT WATCHING A SHOW ON HIS CELL PHONE. DENIES ANY NEEDS. CALL LIGHT IN REACH.
--- NOTE | 2021-07-04 22:00 | NUR ---
EVENING MEDS PROVIDED TO PATIENT. PATIENT IS RESTING IN BED WATCHING TV. REPORTS FEELING WELL. VS STABLE. ASSISTED PATIENT TO REPOSITION. BARRIENTOS EMPTIED, GOOD URINE OUTPUT. IV ABX STARTED. IV SITE IN RIGHT FA IS PAINFUL TO FLUSH AND UNABLE TO FIX ISSUE WITH REDRESSING. IV SITE DC. RIGHT AC SITE USED. PATIENT PROVIDED WITH PRN PAIN MEDS FOR NECK AND BACK PAIN. FRESH ICE WATER PROVIDED.
--- NOTE | 2021-07-05 00:15 | NUR ---
PATIENT RESTING IN BED. EYES CLOSED. APPEARS COMFORTABLE. CALL LIGHT IN REACH. RR 18.
--- NOTE | 2021-07-05 02:21 | NUR ---
IV ABX FINSIHED. PATIENT NOW SL. GOOD URINE OUTPUT NOTED. PATIENT RESTING WITH EYES CLOSED. RR 18. ALLOWED PATIENT TO REST. CALL LIGHT IN REACH.
--- NOTE | 2021-07-05 05:45 | NUR ---
PATIENT RESTING WITH EYES CLOSED. APPEARS VERY COMFORTABLE. RR 20. ALLOWED PATIENT TO REST. BARRIENTOS EMPTIED. AND ROOM CLEANED UP. CALL LIGHT IN REACH.
--- NOTE | 2021-07-05 07:30 | NUR ---
REPORT RECIEVED. PATIENT IS AWAKE AND ALERT LISTENING TO MUSIC. DENIES PROBLEMS.
--- NOTE | 2021-07-05 08:00 | NUR ---
ROUTINE MEDICATIONS GIVEN. ASSESSMENT DONE. TALKED WITH PATIENT ABOUT POC FOR DAY, INDICATIES UNDERSTANDING.
--- NOTE | 2021-07-05 09:00 | NUR ---
TOOK BREAKFAST WELL.
[2021-07-05] MEDS ORDERED: NICOTINE GUM2 MG MM (10:52)
[2021-07-05] MEDS ORDERED: PROBIOTIC1 EAC5 PO (10:53)
[2021-07-05] MEDS ORDERED: CIPROFLOXACIN500 MG PO (10:56)
--- NOTE | 2021-07-05 11:00 | NUR ---
DR. BEARD HERE TO SEE PATIENT. DISCHARGE ORDERS RECIEVED.
--- NOTE | 2021-07-05 11:02 | NUR ---
BEDBATH GIVEN, PATIENT NOW IN RECLINER VIA LYUBOV/SLING. BARRIENTOS AND LA CARE PROVIDED. CALL LIGHT IN EASY REACH. LINENS CHANGED. NO OTHER NEEDS AT THIS TIME
[2021-07-05] MEDS ORDERED: OXYBUTYNIN CHLOR5 MG PO (11:05)
--- NOTE | 2021-07-05 12:10 | NUR ---
SITTING IN CHAIR READY TO EAT LUNCH. PATIENT TO BE DISCHARGED TODAY.
--- NOTE | 2021-07-05 14:15 | NUR ---
DISCHRGED VIA W/C. RETURNING TO [facility]. REPORT PHONED TO THEM.
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
== END 2021-07-05 14:07 | disposition home or self-care (01) | DRG 698 ==
LOC: ED 06:59 → CCU 11:29
PROVIDERS: ADMIT Internal Medicine; ATTEND Internal Medicine
PROC: 8E0ZXY6 Isolation (ICD-10-PCS; principal; 2021-07-03)
PROC: 3E03329 Introduction of Other Anti-infective into Peripheral Vein, Percutaneous Approach (ICD-10-PCS; 2021-07-03)
DX: T83.511A Infection and inflammatory reaction due to indwelling urethral catheter, initial encounter (principal); A41.89 Other specified sepsis; G82.50 Quadriplegia, unspecified; U07.1 COVID-19; K59.2 Neurogenic bowel, not elsewhere classified; E87.2 Acidosis; K21.9 Gastro-esophageal reflux disease without esophagitis; I95.89 Other hypotension; N31.9 Neuromuscular dysfunction of bladder, unspecified; G90.4 Autonomic dysreflexia; D72.829 Elevated white blood cell count, unspecified; B96.4 Proteus (mirabilis) (morganii) as the cause of diseases classified elsewhere; Z91.030 Bee allergy status; Z79.2 Long term (current) use of antibiotics; Z79.899 Other long term (current) drug therapy; Y84.6 Urinary catheterization as the cause of abnormal reaction of the patient, or of later complication, without mention of misadventure at the time of the procedure
CPT/HCPCS: 36415; 51702; 71045; 74176; 80048; 80053; 81001; 83605; 85025; 87088; 87186; 87502; 94667; 94668; 99285-25; A9270; J0692; J0696; J1650; J7030; J7121; U0003

== ENCOUNTER 2021-09-03 11:07 | Emergency (ER) | payer MEDICARE, OTHER ==
[~2021-09-03] VITALS: Ht 177.8 cm; Wt 127.5 kg
[~2021-09-03 11:07] MED LIST changes: +CALCIUM 600 MG1 EAC7 PO; +DULCOLAX10 MG PR; -NYSTATIN15 G2 TOP; +NYSTOP60 GM TOP; +OXYBUTYNIN CHLOR5 MG PO; +PROBIOTIC1 EAC5 PO; +TRAZODONE HCL50 MG PO; +TYLENOL EXTRA500 MG PO; +VITAMIN C500 M1 PO; +VOLTAREN ARTHRI20 GM TOP; +ZANAFLEX4 MG PO
--- OUTSIDE RECORDS SUMMARY | 2021-09-03 11:10 | XMS ---
PreManage Notification: WILLY CASTILLO Security Banking Attorney Events No recent Security Events currently on file CRITERIA MET - TITUS CARE PROVIDERS TIMOTHY Garcia Physical Medicine \T\ Rehabilitation Current PHONE: Unknown Isaac Siddiqui Assistant Professor Of Surgery/Gas Appliance Adjuster 04/27/2021-[facility] PHONE: [phone] ARIANA AGOSTO 06/04/2018-Current PHONE: Unknown JAQUELINE [facility] 03/26/2019-[facility] PHONE: [phone] Kat has no Care Guidelines for this patient. Care History Medical/Surgical 09/24/2019 [facility] - PATIENT HAS AN APT WITH DR HUTCHISON-UROLOGIST 10/23/2019 06/20/2019 [facility] - PATIENT HAS AN APT WITH UROLOGIST DR HUTCHISON ON 06/26/2019 @ 1:00PM FOR SP TUBE CHANGE. 03/25/2019 [facility] - PATIENT HAS AN APT WITH DR HUTCHISON-UROLOGIST 03/26/2019 FOR ER FOLLOW UP. ETimmy VISIT COUNT (12 MO.) [address] [facility] [address] TOTAL 5 NOTE: Visits indicate total known visits. ED/UCC VISIT TRACKING (12 MO.) 09/03/2021 11:08 [facility] [place] TYPE: Emergency COMPLAINT: - ALTERED LOC 07/03/2021 07:00 [facility] [place] TYPE: Emergency COMPLAINT: - PASSED OUT 11/14/2020 13:15 [facility] [place] TYPE: Emergency DIAGNOSES: - HYPOTENSION - Elevated white blood cell count, unspecified - Acute cystitis without hematuria 11/10/2020 22:[address] [facility] [place] TYPE: Emergency COMPLAINT: - CATHETER PROBLEM 10/07/2020 00:30 [facility] [place] TYPE: Emergency COMPLAINT: - CATHETER PROBLEM DIAGNOSES: - exterminator termite (current) use of aspirin - Urinary tract infection, site not specified - Other exterminator termite (current) drug therapy - Other mechanical complication of other urinary catheter, initial encounter - Bee allergy status INPATIENT VISIT TRACKING (12 MO.) 07/03/2021 11:29 [facility] [place] TYPE: Critical Care COMPLAINT: - SEPSIS DIAGNOSES: - Neuromuscular dysfunction of bladder, unspecified - Proteus (mirabilis) (morganii) as the cause of diseases classified elsewhere - Urinary catheterization as the cause of abnormal reaction of the patient, or of later complication, without mention of misadventure at the time of the procedure - Gastro-esophageal reflux disease without esophagitis - skilled nursing (current) use of antibiotics - Bee allergy status - Acidosis - Neuromuscular dysfunction of bladder, unspecified - Quadriplegia, unspecified - Neurogenic bowel, not elsewhere classified - Proteus (mirabilis) (morganii) as the cause of diseases classified elsewhere - Autonomic dysreflexia - Infection and inflammatory reaction due to indwelling urethral catheter, initial encounter - Other exterminator termite (current) drug therapy - Infection and inflammatory reaction due to other urinary catheter, initial encounter - Urinary catheterization as the cause of abnormal reaction of the patient, or of later complication, without mention of misadventure at the time of the procedure - Elevated white blood cell count, unspecified - Other hypotension - Surgical procedure, unspecified as the cause of abnormal reaction of the patient, or of later complication, without mention of misadventure at the time of the procedure - COVID-19 - Neurogenic bowel, not elsewhere classified - Autonomic dysreflexia - Other hypotension - Quadriplegia, unspecified - Acidosis - Elevated white blood cell count, unspecified - Bee allergy status - Other specified sepsis - COVID-19 - Infection and inflammatory reaction due to indwelling urethral catheter, initial encounter - Gastro-esophageal reflux disease without esophagitis - Other alf (current) drug therapy - Other specified sepsis - skilled nursing (current) use of antibiotics 11/11/2020 04:[address] [facility] [place] TYPE: Medical Surgical COMPLAINT: - UTI SEPSIS DIAGNOSES: - Urinary catheterization as the cause of abnormal reaction of the patient, or of later complication, without mention of misadventure at the time of the procedure - Infection and inflammatory reaction due to other urinary catheter, initial encounter - Other exterminator termite (current) drug therapy - Quadriplegia, unspecified - [...] coli] - Cellulitis of perineum - Other exterminator termite (current) drug therapy - Neuromuscular dysfunction of [...] - Acidosis - Other insect allergy status - Contact with and (suspected) exposure to COVID-19 [email or web address]
[2021-09-03] MEDS ORDERED: MIDODRINE HCL10 MG PO (11:18)
[2021-09-03] MEDS ORDERED: ZANAFLEX4 MG PO (11:18)
--- NOTE | 2021-09-04 13:11 | EKG ---
[facility] [address] [facility] [place] [address] Signed Normal sinus rhythm Normal ECG When compared with ECG of 06-FEB-2020 16:48, T wave amplitude has increased in Anterior leads Nonspecific T wave abnormality now evident in Lateral leads Confirmed by LAKIA BEARD MD ([id number]) on 09/04/2021 1:11:16 PM Electronically Signed By: LAKIA BEARD MD 09/04/21 1311 PATIENT NAME: JONATHANWILLY II Electrocardiogram DATE OF : 70 PHYSICIAN: LAKIA BEARD MD REPORT #: [id number] REPORT IS CONFIDENTIAL AND NOT TO BE RELEASED WITHOUT AUTHORIZATION
== END 2021-09-03 15:33 | disposition home or self-care (01) ==
LOC: ED 11:07
DX: G90.4 Autonomic dysreflexia (principal); T83.091A Other mechanical complication of indwelling urethral catheter, initial encounter; Z91.038 Other insect allergy status; Z79.899 Other long term (current) drug therapy; Z96.0 Presence of urogenital implants; Y82.9 Unspecified medical devices associated with adverse incidents
CPT/HCPCS: 36415; 71045; 80053; 81001; 83605; 85025; 87040; 87088; 87186; 87502; 93005; 93010; 96361; 96374; 96375; 99285-25; J0692; J3370; J7030; J7060; J7121; U0003

== ENCOUNTER 2021-10-28 22:20 | Inpatient (IN) | payer MEDICARE, OTHER ==
[~2021-10-28] VITALS: Ht 177.8 cm; Wt 93.5 kg
--- NOTE | 2021-10-29 02:10 | NUR ---
pt to room 128 via elsa from er with paper products supervisor. pt immobile - quadraplegic - moved laterally on slide sheet to ccu bed - tollerated well. daly spc emptied for 1250 of cloudy urine. pt oriented to rn and room, call light and in line of sight of rn. destiny care done and pt rolld max assist off of slide sheet and er linens, personal clothing removed and to belonging bag. skin noted to have small pea size abrasions on bottom - cream applied with Matilde bellamy, and further skin assessment completed - r thigh had small area of redness as well as left arm pit area with red healing area. last iv bolus fusing now in ccu and iv abx cephapime started. bs 283 with 7 units of coverage given. pt denies other needs. assisted to drink water. 0240 am care continues in room and spc changed per order and urine sent to the lab. mia becker started iv in r arm after dc iv in left hand during admit. pt was alert and oriented, pleasant and talkative during assessment.
--- NOTE | 2021-10-29 02:10 | NUR ---
PT TO ROOM 127 FROM ER WHERE HAD BRPIGHGT HIM IN AND CANT GO.
--- NOTE | 2021-10-29 06:00 | NUR ---
PT DESATS WHILE DEEP SLEEPING TO 89-90. 2L NC PLACED, PT AWAKENS AND RN ASSISTED PT TO DRINK 150 ML WATER - BACK TO SLEPP. SATS 99-100 WITH 2L NC.
--- NOTE | 2021-10-29 07:07 | NUR ---
PT MOTHER CALLED AND RN GAVE UPDATES.
--- NOTE | 2021-10-29 08:45 | NUR ---
PATIENT ASSESSMENT COMPLETED. PATIENT IS RESTING IN BED. THIS RN AND ARIAAN RN IN TO DO AM CARES. ARIANA RN GAVE MORNING MEDICATIONS. PATIENT BREATH SOUNDS CLEAR, RR EVEN AND UNLABORED. PATIENT IS A MOUTH BREATHER AND COMPLAINS OF DRY MOUTH. BOWEL TONES ACTIVE. PATIENT HAS NEUROGENIC ISSUES WITH BLOOD PRESSURES AT TIMES. PATIENT ALERT AND ORIENTED, BUT ALSO DROWSY AT TIMES. ARIANA MALDONADO IN AT HE BEDSIDE.
--- NOTE | 2021-10-29 11:00 | NUR ---
Notified by Aguilar RANDALL, Pt would like his glasses, electric wc, and clothing when he dcs to [facility]. Called Dr. Evans and he states there is a possibility pt could dc over the weekend. Called the WC van and they will steel pickler pts electric wc tomorrow at 9:15 and bring to the hospital. Called Filemon at [facility]. She will have wc, clothing, and classes in their front lobby for steel pickler. She also states pt may return over the weekend. They will need the dc orders, any new meds filled by our pharmacy as their mail order pharmacy is closed on Monday, and the dc summary faxed to their staff. Charge nurse notified.
--- NOTE | 2021-10-29 11:30 | NUR ---
PATIENT RESTING IN BED AT THIS ITME. PATIENT HAS BEEN TIERD TODAY. WILL ALLOW PATIENT TO REST. WILL CONTINUE TO CLOSELY MONITOR.
--- NOTE | 2021-10-29 12:25 | NUR ---
PT SLEEPING AT THE MOMENT, ERICA LANE REQUESTED I NOT DISTURB PT AT THIS TIME. WILL FOLLOW
--- NOTE | 2021-10-29 12:30 | NUR ---
PATIENTS ASSESSMENT COMPLETED AND REMAISN UNCHANGED. PATIENTS MOTHER WAS HERE EARLIER AND UPDATED ON PLAN OF CARE. WILL CONTINUE TO CLOSELY MONITOR.
--- NOTE | 2021-10-29 14:30 | NUR ---
PATIENT AWAKE AND VERY TALKATIVE WITH STAFF. PATIENT IS FEELDING MUCH BETTER THIS AFTERNOON. PATIENT RESTINGI N BED PLAYING ON HIS PHONE. PATIENT VITALS STABLE. PATIENT DENIES ANY OTHER NEEDS AT THIS TIME. WILL CONTINEU TO CLOSELY MONITOR.
[2021-10-29] MEDS ORDERED: MIDODRINE HCL10 MG PO (14:43)
[2021-10-29] MEDS ORDERED: LOMOTIL TABLET1 EACH PO (14:45)
--- NOTE | 2021-10-29 14:49 | NUR ---
MED REC COMPLETE
--- NOTE | 2021-10-29 15:18 | NUR ---
PATIENTS IV BEEPING DISTAL OCCLUSION WHEN PATIENT BENDS HIS HAND/ARM. HENRY MALDONADO IN TO START NEW IV D/T INABILITY TO HAVE FLUIDS AND ABX BE CONTINUED. PATIENT TOELRATED WELL. SPOKE WITH WISAM RIZZO ABOUT DISCHARGE PLAN. DARY ELISE WILL BE DELIVERED TOMORROW TO THE HOSPITAL. IF PATIENT DISCHARGES OVER THE WEEKEND. PATIENT WILL NEED ABX OR NEW MEDICAATIONS SENT HOME WITH PATIENT D/T PATIENTS FACILITY PHARMACY NOT BEING ABLE TO SEND MEDICATIONS D/T THE HOLIDAY WEEKEND.
--- NOTE | 2021-10-29 16:45 | NUR ---
MD BEARD CALLED AND THIS RN UPDATED MD. PATIENT IS MORE AWAKE THIS AFTERNOON. VITALS STABLE. INTAKE AND OUTPUT HAS BEEN GOOD. PATIENT WILL TRANSFER TO [facility] ROOM 109. NO TELEMETRY. NO OTHER NEEDS AT THIS TIME. WILL CONTINUE TO CLOSELY MONITOR.
--- NOTE | 2021-10-29 17:11 | NUR ---
PATIENT CALLED AND REQUESTED PRN PAIN MEDICATION. PAIN 8/10 IN RIGHT SHOULDER. PATIENT MEDICATIONS GIVEN AND PATIENT NOW EATING DINNER. REPORT GIVEN TO RENAN MALDONADO. ALL QUESTIONS ANSWERED. INTAKE AND OUTPUT UPDATED. PATIENT FINISHING DINNER AND THEN WILL MOVE TO ROOM 109. NO OTHER NEEDS AT THIS TIME. WILL CONTINEU TO CLOSELY MONITOR.
--- NOTE | 2021-10-29 17:40 | NUR ---
PATIENT TO [facility] ROOM 109. PATIENT REMAINED IN BED AND NO FURTHER QUESTIONS AT THIS TIME. CHARGE NURSE CAL MALDONADO AND RENAN MALDONADO AT THE BEDSIDE.
--- NOTE | 2021-10-29 18:12 | NUR ---
TO PT ROOM FOR MEDICATION ADMINISTRATION. PT IS A/O, RESPIRATIONS EVEN AND REGULAR. IV FLUIDS RUNNING.
--- NOTE | 2021-10-29 19:28 | NUR ---
REPORT RECEIVED FROM RENAN MALDONADO. PT IS AWAKE AND ALERT, SITTING UP IN BED. CALL LIGHT IN REACH.
--- NOTE | 2021-10-29 20:30 | NUR ---
CALL LIGHT ANSWERED, pt ASSISTED WITH BOOST IN BED AND REPOSITIONED WITH HELP FROM PAOLA SILVA. NO ADDITIOANL NEEDS VERBALIZED, PAOLA SILVA REMAINS IN ROOM TO COLLECT VS. CALL LIGHT IN REACH.
--- NOTE | 2021-10-29 22:42 | NUR ---
CALL LIGHT ANSWERED, pt AWAKE AND RESTING IN BED. NICOTINE GUM GIVEN PER pt REQUEST, SEE EMAR. FRESH WATER, KLEENEX, AND BEDSIDE TABLE GARBAGE SACK ALSO PROVIDED. NO ADDITIONAL NEEDS, CALL LIGHT IN REACH.
--- NOTE | 2021-10-30 07:30 | NUR ---
THIS RN RECEIVED SHIFT REPORT FROM ERICA MONTES. PATIENT RESTING QUIETLY ON HIS LEFT SIDE, EYES CLOSED, RESPIRATIONS ARE REGULAR AND EVEN, AND CALL LIGHT IS IN REACH. PATIENT HAS NO NURSE CARE NEEDS AT THIS TIME.
--- NOTE | 2021-10-30 09:19 | NUR ---
PATIENT CALLED FOR 7/10 RIGHT SHOULDER PAIN AND PO PAIN AND MUSCLE SPASM MEDS GIVEN. PATIENT DENIED ANY OTHER CARE NEEDS AT THIS TIME. AM ASSESSMENT COMPLETE AND CALL LIGHT IS IN REACH.
--- NOTE | 2021-10-30 10:00 | NUR ---
PATIENT CALLED FOR SOME LUBNA GUM. THIS WAS GIVEN AND PATIENT'S ICE WATER HAS BEEN REFILLED. PATIENT HAS NO OTHER NEEDS AT THIS TIME. CALL LIGHT IS IN REACH.
--- NOTE | 2021-10-30 11:38 | NUR ---
PATIENT SAYS PAIN AND SPASMS MUCH IMPROVED. PATIENT DENIES ANY CARE NEEDS AT THIS TIME. CALL LIGHT IS IN REACH.
--- NOTE | 2021-10-30 12:32 | NUR ---
THIS RN IN AND GAVE S/S INSULIN AND SCHEDULED MED. PATIENT DENIES ANY OTHER CARE NEEDS AT THIS TIME AND CONTINUES TO WORK ON EATING HIS LUNCH. CALLL LIGHT IS IN REACH.
--- NOTE | 2021-10-30 13:40 | NUR ---
PATIENT ASKED FOR A SUPPOSITORY AND THIS WAS ORDERED AND GIVEN AND IS AWARE. ALSO ORDERED SOME MIRALAX AND THIS WAS GIVEN WELL. DIABETIC PRINTED MATERIALS FROM GIVEN TO PATIENT TO LOOK AT AND THIS RN DISCUSSED WITH PATIENT ABOUT COUNTING CARBS. DIETARY CONSULT ORDERED WELL. PATIENT HAS NO OTHER NURSE CARE NEEDS AT THIS TIME. CALL LIGHT IS IN REACH.
--- NOTE | 2021-10-30 15:06 | NUR ---
PATIENT CALLED FOR LUBNA GUM WHICH WAS GIVEN WITH SCHEDULED MEDS. PATIENT HAD AN X-LARGE INCONTINENT FORMED BM FOLLOWED BY ANOTHER X-LARGE SOFT PASTY BM. THIS RN WASHED PATIENT UP AND CHANGED THE CHUX PAD UNDERNEATH THE PATIENT. PATIENT'S ICE WATER REFILLED AND CALL LIGHT IS IN REACH. PATIENT HAS NO OTHER CARE NEEDS AT THIS TIME. AFTERNOON ASSESSMENT COMPLETE.
--- NOTE | 2021-10-30 17:45 | NUR ---
THIS RN WAS IN TO SEE THE PATIENT AND GAVE HIS SCHEDULED MEDS. THIS RN CUT UP PATIENT'S DINNER BETHANY. PATIENT DENIES PAIN AT THIS TIME. CALL LIGHT IN REACH AND PATIENT DENIES ANY OTHER CARE NEEDS AT THIS TIME.
--- NOTE | 2021-10-30 19:15 | NUR ---
SHIFT REPORT TAKEN. PT IS AWAKE AND ALERT. STAFF IS IN TO BRAID HIS HAIR. CALL LIGHT IN REACH.
--- NOTE | 2021-10-30 20:40 | NUR ---
IN TO GET VITALS, ACCU CHECK DOEN, NO FURTHER NEEDS AT THIS TIME
--- NOTE | 2021-10-30 21:45 | NUR ---
PT IS TURNED TO HIS BACK. CHUX AND DRAW SHEET CHANGED. PERICARE DONE. DESENEX APPLIED TO GROIN AREA. PT IS REPOSITIONED IN BED WITH PILLOWS BEHIND HIS SHOULDERS. PT CAN RAISE AND LOWER HIS HOB DESIRED. CALL LIGHT IN REACH.
--- NOTE | 2021-10-31 00:54 | NUR ---
PT HAS RAISED HIS HOB. HE APPEARS TO BE ASLEEP, DID NOT AWAKEN DURING CHECK.
--- NOTE | 2021-10-31 02:35 | NUR ---
PT APPEARS TO HAVE GONE BACK TO SLEEP. EYES ARE CLOSED.
--- NOTE | 2021-10-31 07:30 | NUR ---
THIS RN RECEIVED SHIFT REPORT FROM ERICA MONTES. PATIENT AWAKE AND ASKED FOR WASH CLOTH TO WASH UP BEFORE BREAKFAST AND THIS WAS GIVEN. PATIENT DENIED ANY OTHER CARE NEEDS AT THIS TIME CALL LIGHT IS IN REACH.
--- NOTE | 2021-10-31 08:30 | NUR ---
THIS RN IN TO SEE PATIENT AND PERFAORM AM ASSESSMENT. PATIENT HAVING 8/10 RT SHOULDER PAIN AND SOME ABD CRAMPING. 1 PO NORCO REQUESTED AND GIVEN WITH ALL OTHER AM MEDS. IV'S ALL FLUSH WELL. PATIENT DENIES ANY OTHER CARE NEEDS AT THIS TIME.
--- NOTE | 2021-10-31 08:50 | NUR ---
PATIENT IN BED, AM CARE COMPLETED, CALL LIGHT WITHIN REACH.
--- NOTE | 2021-10-31 09:00 | NUR ---
PATIENT CALLED HAVING ABD SPASMS. TOO SOON FOR ANY SPASMOTIC MEDICATION. PATIENT HAD THIS RN HELPED HIM STRETCH FORWARD AT HIS REQUEST AND THIS HELPED HIS SPASMS. PATIENT HAD NO OTHER CARE NEEDS AT THIS TIME.
--- NOTE | 2021-10-31 09:37 | NUR ---
PATIENT IN BED AFTER MEAL. VITALS AND I/O'S COMPLETED. BARRIENTOS DRAINED. NO OTHER NEEDS AT THIS TIME CALL LIGHT IN REACH.
--- NOTE | 2021-10-31 11:25 | NUR ---
PATIENT PAIN IS DOWN TO 4/10 AND HE IS COMFORTABLE. PATIENT HAS NO OTHER CARE NEEDS AT THIS TIME WATCHING TV. CALL LIGHT IS IN REACH.
--- NOTE | 2021-10-31 12:33 | NUR ---
THIS RN IN TO SEE PATIENT WHO CALLED TO HAVE HIS LEGS AND HEEL PROTECTORS RE-ADJUSTED AND THIS WAS DONE. SS INSULIN COVERAGE GIVEN WITH SCHEDULED MEDS. PATIENT'S LUNCH SET UP FOR HIM TO EAT. PATIENT DENIES ANY OTHER CARE NEEDS AT THIS TIME. CALL LIGHT IS IN REACH.
[2021-10-31] MEDS ORDERED: DULCOLAX10 MG PR (13:02)
[2021-10-31] MEDS ORDERED: HEALTHYLAX17 GM PO (13:03)
[2021-10-31] MEDS ORDERED: SENNA LAX8.6 MG PO (13:03)
[2021-10-31] MEDS ORDERED: BLOOD GLUCOSE1 EAC1 MISC (13:04)
[2021-10-31] MEDS ORDERED: BLOOD GLUCOSE1 EAC8 MISC (13:04)
[2021-10-31] MEDS ORDERED: LANCETS1 EACH MISC (13:05)
[2021-10-31] MEDS ORDERED: CEPHALEXIN500 MG PO (13:06)
[2021-10-31] MEDS ORDERED: METFORMIN HCL500 MG PO (13:07)
[2021-10-31] MEDS ORDERED: GAS-X125 MG PO (13:09)
--- NOTE | 2021-10-31 13:45 | NUR ---
PATIENT DC'D TO HOME TO DESIRE FOR HEALING. PATIENT WENT OUT TO WHEELCHAIR VAN IN HIS OWN MOTORIZED W/C. ALL IV'S DC'D INTACT. ALL BELONGINGS SENT WITH PATIENT. PHARMACY CAME AND GAVE PATIENT INSTRUCTION ON HIS NEW MEDS. THIS RN WENT OVER CARB COUNTING SOME MORE WITH PATIENT JUST BEFORE LUNCH AND PATIENT IS GOING TO TRY AND STICK TO HIS 60G CARB DIET. DC AND F/U INSTRUCTION SENT WITH AND DISCUSSED WITH PATIENT. PATIENT HAD NO OTHER QUESTIONS ON DC AND VS ARE STABLE.
== END 2021-10-31 13:45 | disposition home or self-care (01) | DRG 698 ==
LOC: ED 22:20 → CCU 10-29 01:33 → MS 10-29 17:34
PROVIDERS: ADMIT Internal Medicine; ATTEND Internal Medicine
DX: T83.511A Infection and inflammatory reaction due to indwelling urethral catheter, initial encounter (principal); A41.50 Gram-negative sepsis, unspecified; R65.20 Severe sepsis without septic shock; G82.50 Quadriplegia, unspecified; N30.90 Cystitis, unspecified without hematuria; Z20.822 Contact with and (suspected) exposure to COVID-19; K21.9 Gastro-esophageal reflux disease without esophagitis; N31.9 Neuromuscular dysfunction of bladder, unspecified; Z88.8 Allergy status to other drugs, medicaments and biological substances; Z79.899 Other long term (current) drug therapy; E11.65 Type 2 diabetes mellitus with hyperglycemia
CPT/HCPCS: 36415; 80048; 80053; 81001; 82010; 82803; 83036; 83605; 85025; 87040; 87088; 87186; 87502; 94760; 96365; 96375; 99285-25; A9270; C9803; J0692; J0696; J1650; J1815; J7030; J7121; U0003

== ENCOUNTER 2022-03-10 12:52 | Inpatient (IN) | payer MEDICARE, OTHER ==
[~2022-03-10] VITALS: Ht 177.8 cm; Wt 135.0 kg
[~2022-03-10 12:52] MED LIST changes: +BLOOD GLUCOSE1 EAC1 MISC; +BLOOD GLUCOSE1 EAC8 MISC; +GAS-X125 MG PO; +HEALTHYLAX17 GM PO; +LANCETS1 EACH MISC; +LOMOTIL TABLET1 EACH PO; +METFORMIN HCL500 MG PO; +SENNA LAX8.6 MG PO
--- NOTE | 2022-03-10 17:00 | NUR ---
MANUAL BLOOD PRESSURE TAKEN AND NOTED TO BE 80/40 SYSTOLIC. PATIENTS BLOOD PRESSURE HAS READ LOW SEVERAL TIMES ON THE MONTIOR, BUT UPON MANUAL CHECK IS BETTER CHER THE MONITOR. PATIENTS BLOOD PRESSURE HAS ALSO READ 200'S SYSTOLIC ON MONITOR AND AT THAT TIME PRESSURES ARE 160'S SYSTOLIC. PATIENTS AUTONOMIC DYSREFLEXIA IS CAUSING PATIENTS HIGH/LOW BLOOD PRESSURE. MD IS AWARE OF CONTINUED FLUCUATION IN VITAL SIGNS. WILL CONTINUE TO CLOSELY MONITOR.
--- NOTE | 2022-03-10 18:00 | NUR ---
PATIENT ARRIVED FROM ED. PATIENT MOVED TO BED FROM STRETCHER WITH SLIDDER SHEET. PATIENTS HR UP TO 160'S. PATIENT HR HAS BEEN 70'S-170'S. BP- 70'S SYSTOLIC UP TO 200'S SYSTOLIC D/T AUTONOMIC DYSREFLEXIA. MD CRESPO NOTIFIED OF PATIENTS HR 160-170'S AND PATIENT DIZZY AT THAT TIME. NEW ORDER FOR 500MLS BOLUS. PATIENT ARRIVED ON VANCO. PATIENT HAD A BM PRESENT. PATIENT CLEANED AND PICTURES TAKE UPON PATIENTS APPROVAL. PATIENT IS HAVING HOT FLASHES, FULL BODY RIGORS. MD CRESPO NOTIFIED OF PATIENTS PAIN. NEW ORDER FOR 1 TIME DOSE OF NORCO. SEE EMAR. PATIENT WANTS TO EAT, BUT THEN HAS EPISODES OF NAUSEA AND SPASMS. ENCOURAGED TO ONLY TRY SOME JELLO AT THIS ITME. ZOFRAN GIVEN. PATIENT STATES "I FEEL TERRIBLE" WILL CONTINUE TO CLOSELY MONITOR.
--- NOTE | 2022-03-10 18:45 | NUR ---
PATIENT IS SITTING UP IN BED AT THSI TIME. PATIENT STATES "IM FEELING A LITTLE BETTER". PATIENTS HR IS 80-120'S. BP IS BETTER CONTROLLED AT 90'S SYSTOLIC TO 160'S SYSTOLIC. PATIENTS GETTING FLUSH AT TIMES AND THEN GETTING THE CHILLS. PATIENT UP LISTENING TO MUSIC. BARRIENTOS CATHETER EMPTIED. WILL CONTINUE TO CLOSELY MONITOR.
--- NOTE | 2022-03-10 20:00 | NUR ---
Bedside report received from outgoing nurse, ERICA rivera. Initial assessment performed with no critical measures necessary. All vital signs stable with no indications of respiratory distress or fever. Patient does report bladder spasm pain and rates it at 6/10. Patient was repositioned and nonpharmacological measures were provided for comfort.
--- NOTE | 2022-03-10 22:00 | NUR ---
Patient vital signs stable with continued complants of discomfort. Patient repositioned again and other comfort measures provided.
--- NOTE | 2022-03-10 22:28 | NUR ---
PATIENT PROVIDED WITH NICOTINE GUM PER REQUEST AND ICE PACK FOR HIS NECK. ASSISTED PATIENT TO REPOSITION FOR COMFORT. CALL LIGHT IN HAND.
--- NOTE | 2022-03-11 | NUR ---
Reassessment performed with no acute changes since previous assessment unless noted. All vital signs stable with no complaints or indications of respiratory distress, fever, or pain at this time. IV fluids infusing at 125 ml/hr with patient resting comfortably.
--- NOTE | 2022-03-11 02:00 | NUR ---
Patient resting comfortably with all vital signs stable. Will continue to monitor.
--- NOTE | 2022-03-11 04:00 | NUR ---
Repeat assessment performed with no acute changes since previous assessment. All vital signs stable with no indications of respiratory distress, fever or pain.
--- NOTE | 2022-03-11 06:04 | NUR ---
Patient in bed in sitting position. All vital signs stable with patient complaining of bladder pain. Pain medication administered. Will continue to monitor.
--- NOTE | 2022-03-11 07:30 | NUR ---
REPORT RECIEVED FROM ASSISTANT TECHNICIAN RN. PER REPORT PATIENT SLEPT HALF THE NIGHT AND PATIENT HAD A BETTER NIGHT. NO FEVERS NOTED OVER NIGHT. PATIENT CALLS APPROPRIATELY. WILL CONTINUE TO CLOSELY MONITOR.
--- NOTE | 2022-03-11 07:45 | EKG ---
[facility] [address] [facility] [place] [address] Signed Sinus tachycardia Left axis deviation Abnormal ECG When compared with ECG of 03-SEP-2021 11:18, Vent. rate has increased BY [address] no longer elevated in Lateral leads Confirmed by SIMON CRESPO MD ([id number]) on 03/11/2022 7:45:42 AM Electronically Signed By: SIMON CRESPO MD 03/11/22 0745 PATIENT NAME: JONATHANWILLY II Electrocardiogram DATE OF : 70 PHYSICIAN: SIMON CRESPO MD REPORT #: [id number] REPORT IS CONFIDENTIAL AND NOT TO BE RELEASED WITHOUT AUTHORIZATION
--- NOTE | 2022-03-11 09:00 | NUR ---
PATIENT ASSESSMENT COMPELTED. PATIENT SITTING IN BED EATING BREAKFAST. THIS RN ASSISTED PATIENT TO OPEN AND PREP ALL OF HIS BREAKFAST. MD CRESPO IN TO SEE PATIENT. PLAN OF CARE REVIEWED. OZZY WITH CASE MANAGEMENT ALSO IN TO SEE PATIENT. PATIENT STATED "COULD SOMETHING BE GOING ON IN MY ABDOMEN, IT SEEMS ANYTIME I EAT IT SETS ME INTO MY AUTONOMIC DYSREFLEXIA SPASMS". SEE NEW ORDERS. PATIENT REMAINS A [facility] CONVIENCE PATIENT AT THIS TIME. WILL CONTINUE TO CLOSELY MONITOR.
--- NOTE | 2022-03-11 09:39 | NUR ---
PATIENT MEDICATIONS GIVEN. PATIENT RESTING IN BED LISTENING TO MUSIC. PATIENTS VITALS AND APPEARANCE ARE MUCH IMPROVED FROM THE PRIOR DAY. WILL CONTINUE TO CLOSELY MONITOR.
--- NOTE | 2022-03-11 09:45 | NUR ---
CALL LIGHT ANSWERED, PATIENT ASKED FOR BEDDING UNDER HIM TO BE SMOOTHED OUT. PATIENT WAS CHECKED FOR BM, LINEN IS DRY. SALTINES PROVIDED PER REQUEST, CALL LIGHT AND PERSONAL ITEMS IN EASY REACH
[2022-03-11] MEDS ORDERED: HYDROCODON-ACE1 EA11 PO (10:42)
[2022-03-11] MEDS ORDERED: METFORMIN HCL1000 MG PO (10:43)
[2022-03-11] MEDS ORDERED: BACLOFEN20 MG PO (10:47)
[2022-03-11] MEDS ORDERED: CEPHALEXIN500 MG PO (10:48)
[2022-03-11] MEDS ORDERED: GABAPENTIN600 MG PO (10:49)
--- NOTE | 2022-03-11 10:49 | NUR ---
INTO SEE PATIENT, CHEMA MALDONADO AND DR. CRESPO AT THE BEDSIDE DISCUSSING THE PLAN OF CARE. PATIENT IS STILL RESIDING AT DESIRE FOR HEALING AND DOING WELL. NO DISCHARGE NEEDS AT THIS TIME. PATIENT APPEARS TO NOT BE FEELING WELL. WILL CHECK IN WITH PATIENT DURING HIS VISIT.
[2022-03-11] MEDS ORDERED: DULCOLAX10 MG PR (10:50)
--- NOTE | 2022-03-11 10:53 | NUR ---
MED REC COMPLETE
--- NOTE | 2022-03-11 11:00 | NUR ---
BAG OF PERSONAL BELONGINGS BROUGHT IN BY PATIENTS MOTHER.
--- NOTE | 2022-03-11 11:30 | NUR ---
PATIENT RESTING IN BED LISTENING TO MUSIC. PATIENT STATES "I AM DOING BETTER NOW THAT MY PAIN IS NOT SO BAD". PATIENT IS VERY CHATTY TODAY. PATIENT HAS HAD SEVERAL EPISODES OF SPASMS AND AUTONOMIC DYSREFLEXIA EPISODES. PATIENT OVERALL APPEARS BETTER THIS AFTERNOON. NICOTINE GUM PROVIDED NEEDED.
--- NOTE | 2022-03-11 12:42 | NUR ---
PATIENT REPOSITIONED IN BED, LYING ON LEFT SIDE WITH RIGHT BUTTOCK CLEAN AND OPEN TO AIR. VITALS CHARTED BARRIENTOS EMPTIED. CALL LIGHT AND PERSONAL ITEMS IN EASY REACH
--- NOTE | 2022-03-11 13:00 | NUR ---
THIS RN IN TO START NEW IV. UNSUCCESFUL ATTEMPT AND THEN SOLEDAD RN IN TO START NEW IV. PATIENT TOLERATED WELL. PATIENT CONTINUES TO DO WELL THIS AFTERNOON. NO OTHER NEEDS AT THIS TIME. WILL CONTINUE TO CLOSELY MONITOR.
--- NOTE | 2022-03-11 14:52 | NUR ---
PATIENT CALLED TO GET REPOSITIONED. PATIENT RESTING ON HIS SIDE AT THIS TIME. PATIENT WATCHING A MOVIE ON HIS PHONE. PATIENTS VITALS STABLE. NO FEVERS TODAY. PATIENT IS HAVING GREAT URINE OUTPUT. WILL CONTINUE TO CLOSELY MONTIOR.
--- NOTE | 2022-03-11 15:59 | NUR ---
THIS RN IN TO GIVE AFTERNOON MEDICATIONS. PATIENT STILL WATCHING A MOVIE. MEDICATIONS GIVEN WITH NO ISSUES. CRACKERS PROVIDED PER REQUEST. PATIENTS VITALS DONE. CATHETER EMPTIED. ASSESSMENT REMAINS UNCHANGED FROM PRIOR ASSESSMENT. WILL CONTINUE TO CLOSELY MONTIOR.
--- NOTE | 2022-03-11 18:10 | NUR ---
PATIENT CALLED AND REPOSITIONED WITH PILLOW SUPPORT. PATIENT ATE 75% OF HIS DINNER AND TOLERATED WELL. BARRIENTOS CATHETER EMPTIED. PATIENT DENIES ANY OTHER NEEDS AT THIS TIME. WILL CONTINUE TO CLOSELY MONTIOR.
--- NOTE | 2022-03-11 20:00 | NUR ---
Bedside report received from outgoing nurse, ERICA Marcano. Initial assessment performed with no critical measures necessary. Patient alert and oriented and seems to be in good spirits. All vital signs stable with no indications of respiratory distress, high fever or increased pain. IV fluids infusing via PIV and suprapublic cathether patent and clear.
--- NOTE | 2022-03-11 22:00 | NUR ---
Patient resting comfortably with music playing. All vital signs stable.
--- NOTE | 2022-03-12 | NUR ---
Patient asleep with no indications of distress or pain. All vital signs stable.
--- NOTE | 2022-03-12 02:00 | NUR ---
Repeat assessment performed with no acute change since previous assessment. All vital signs stable with no indications of respiratory distress, fever or pain. Patient repositioned upon request.
--- NOTE | 2022-03-12 04:06 | NUR ---
Patient sleeping restfully with no indications of respiratory distress or pain. All vital signs stable.
--- NOTE | 2022-03-12 06:00 | NUR ---
Patient awake and resting comfortably. All vital signs stable with no indications or complaints of respiratory distress, fever or pain. Dr. Evans notified of positive blood cultures with no new orders received.
--- NOTE | 2022-03-12 07:50 | NUR ---
REPORT RECEIVED FROM ZIA MALDONADO. IN TO CHECK ON PT, PT WANTING TO BE REPOSITIONED. 30 MINUTES SPENT REPOSITIONING PT. BLOOD SUGAR TAKEN AND THEN PT ASSISTED WITH GETTING SET UP FOR BREAKFAST.
--- NOTE | 2022-03-12 09:31 | NUR ---
PT CALLED FOR HELP WITH REPOSITIONING. REQUESTS NICOTINE GUM.
--- NOTE | 2022-03-12 10:25 | NUR ---
PT CALLS TO REQUEST ZANAFLEX FOR BODY CRAMPING.
--- NOTE | 2022-03-12 10:56 | NUR ---
PT CALLS TO BE REPOSITIONED AND FOR "STOMACH COATING PILL" FOR C/O STOMACH CRAMPING.
--- NOTE | 2022-03-12 11:02 | NUR ---
DR BEARD IN TO SEE PT.
--- NOTE | 2022-03-12 11:45 | NUR ---
PT GIVEN DULCOLAX SUPPOSITORY AND ASSISTED WITH REPOSITIONING.
--- NOTE | 2022-03-12 12:39 | NUR ---
PT CHECKED FOR STOOL, PAD CLEAN. PT REPOSITIONED FOR LUNCH. BLOOD SUGAR 104. PHARMACIST IN TO DISCUSS MED TIMES PER PT REQUEST.
--- NOTE | 2022-03-12 12:58 | NUR ---
LUNCH BROUGHT IN TO PT, PT HAS NO FURTHER REQUESTS AT THIS TIME.
--- NOTE | 2022-03-12 14:32 | NUR ---
IN TO REPOSITION PT. MEDS GIVEN, NO FURTHER REQUESTS.
--- NOTE | 2022-03-12 15:30 | NUR ---
PT C/O BODY SPASMS/TREMORS, PT REQUESTS OXYBUTININ TO SEE IF IT HELPS. REQUESTS BED BATH TO BE GIVEN AT 1630.
--- NOTE | 2022-03-12 15:30 | NUR ---
PT AWAKE IN ROOM, ASKING FOR FREQUENT CHECKS FOR INCONTINENT STOOL, HAS NOT HAD ANY YET.
--- NOTE | 2022-03-12 17:11 | NUR ---
IN TO GIVE PT A BEDBATH AND LINEN CHANGE AND PT WAS INC OF STOOL DURING THAT TIME, STOOL WAS A BASEBALL SIZED SOLID BALL. PT CLEANED UP, CATH CARE DONE AND PT REPOSITIONED.
--- NOTE | 2022-03-12 20:00 | NUR ---
Bedside report received from outgoing nurse, ERICA Rodriguez. Initial assessment performed with no immediate measures necessary other than patient positioning. All vital signs stable with no indications of respiratory distress, fever or acute pain.
--- NOTE | 2022-03-12 22:00 | NUR ---
Patient repositioned on side for sleep. All vital signs stable with no indications of respiratory distress, fever or acute pain.
--- NOTE | 2022-03-13 | NUR ---
Patient repositioned due to bladder spasms with relief found in upright position. All vital signs stable. Will continue to monitor.
--- NOTE | 2022-03-13 02:00 | NUR ---
Repeat assessment performed with no acute changes since previous assessment. All vital signs stable with no indications of respiratory distress, fever or pain.
--- NOTE | 2022-03-13 04:00 | NUR ---
Patient asleep with no indications of respiratory distress, fever or pain. Will continue to monitor.
--- NOTE | 2022-03-13 06:52 | NUR ---
Patient resting comfortably with phone at bedside. Morning medications administered and patients seems satisfied with administration time. All vital signs stable.
--- NOTE | 2022-03-13 07:51 | NUR ---
REPORT RECEIVED FROM ZIA MALDONADO. PT AWAKE IN BED ON HIS PHONE.
--- NOTE | 2022-03-13 08:23 | NUR ---
PATIENT SITTING UP IN BED THIS AM. VITALS COMPLETED, BARRIENTOS DRAINED AND DOCUMENTED. PATIENT REQUESTED A CUP OF COFFEE. A PILLOW WAS PLACE BEHIND THE PT'S LOWER BACK AND SPANKO BOOTS APPLIED TO FEET PER REQUEST. CALL LIGHT WITHIN REACH.
--- NOTE | 2022-03-13 09:57 | NUR ---
DR BEARD IN TO SEE PT
[2022-03-13] MEDS ORDERED: DULCOLAX10 MG PR (10:05)
[2022-03-13] MEDS ORDERED: HEALTHYLAX17 GM PO (10:06)
[2022-03-13] MEDS ORDERED: SENNA LAX8.6 MG PO (10:06)
[2022-03-13] MEDS ORDERED: CEFPODOXIME PR200 MG PO (10:08)
--- NOTE | 2022-03-13 10:41 | NUR ---
PT TO SHOWER WITH MUNICIPAL MAINTENANCE WORKER
== END 2022-03-13 13:30 | disposition home or self-care (01) | DRG 698 ==
LOC: ED 12:52 → CCU 16:24
PROVIDERS: ADMIT Internal Medicine; ATTEND Internal Medicine
DX: T83.510A Infection and inflammatory reaction due to cystostomy catheter, initial encounter (principal); A41.4 Sepsis due to anaerobes; G82.50 Quadriplegia, unspecified; E87.20 Acidosis, unspecified; K59.2 Neurogenic bowel, not elsewhere classified; Z20.822 Contact with and (suspected) exposure to COVID-19; G90.4 Autonomic dysreflexia; N31.9 Neuromuscular dysfunction of bladder, unspecified; I95.9 Hypotension, unspecified; K21.9 Gastro-esophageal reflux disease without esophagitis; M62.838 Other muscle spasm; E11.9 Type 2 diabetes mellitus without complications; B96.4 Proteus (mirabilis) (morganii) as the cause of diseases classified elsewhere; Z98.890 Other specified postprocedural states; Z91.030 Bee allergy status; Z79.84 Long term (current) use of oral hypoglycemic drugs; Z79.899 Other long term (current) drug therapy; Y84.6 Urinary catheterization as the cause of abnormal reaction of the patient, or of later complication, without mention of misadventure at the time of the procedure
CPT/HCPCS: 36415; 71045; 80048; 80053; 81001; 83605; 85025; 85610; 85730; 87502; 93005; 93010; A9270; C9803; J0692; J0696; J1650; J1815; J2405; J3370; J7030; J7040; J7060; J7121; U0003

== ENCOUNTER 2022-04-19 22:32 | Inpatient (IN) | payer MEDICARE, OTHER ==
[~2022-04-19] VITALS: Ht 177.8 cm; Wt 130.0 kg
[~2022-04-19 22:32] MED LIST changes: +CEFPODOXIME PR200 MG PO; +METFORMIN HCL1000 MG PO
--- OUTSIDE RECORDS SUMMARY | 2022-04-19 22:34 | XMS ---
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 PHONE: [phone] Kat has no Care Guidelines for this patient. Care History Medical/Surgical 09/24/2019 [facility] - PATIENT HAS AN APT WITH DR HUTCHISON-UROLOGIST 10/23/2019 06/20/2019 [facility] - PATIENT HAS AN APT WITH UROLOGIST DR HUTCHISON ON 06/26/2019 @ 1:00PM FOR SP TUBE CHANGE. 03/25/2019 [facility] - PATIENT HAS AN APT WITH DR HUTCHISON-UROLOGIST 03/26/2019 FOR ER FOLLOW UP. E.D. VISIT COUNT (12 MO.) 5 [facility]. TOTAL 5 NOTE: Visits indicate total known visits. ED/UCC VISIT TRACKING (12 MO.) 04/19/2022 22:33 [facility] [place] TYPE: Emergency COMPLAINT: - URINE PROBLEM 03/10/2022 12:54 [facility] [place] TYPE: Emergency COMPLAINT: - URINE PROBLEM 10/28/2021 22:20 [facility] [place] TYPE: Emergency COMPLAINT: - WEAKNESS 09/03/2021 11:08 [facility] [place] TYPE: Emergency COMPLAINT: - ALTERED LOC DIAGNOSES: - Other insect allergy status - Other mechanical complication of indwelling urethral catheter, initial encounter - Unspecified medical devices associated with adverse incidents - Autonomic dysreflexia - Altered mental status, unspecified - Other long-term (current) drug therapy - Presence of urogenital implants 07/03/2021 07:00 [facility] [place] TYPE: Emergency COMPLAINT: - PASSED OUT INPATIENT VISIT TRACKING (12 MO.) 03/10/2022 16:24 [facility] [place] TYPE: Critical Care COMPLAINT: - SEPSIS, UTI, QUADRIPLEGIA DIAGNOSES: - Neuromuscular dysfunction of bladder, unspecified - Hypotension, unspecified - Other extermination supervisor (current) drug therapy - Quadriplegia, unspecified - Infection and inflammatory reaction due to cystostomy catheter, initial encounter - Contact with and (suspected) exposure to COVID-19 - Other muscle spasm - Hypotension, unspecified - Type 2 diabetes mellitus without complications - Bee allergy status - 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 - Sepsis, unspecified organism - Quadriplegia, unspecified - Bee allergy status - Type 2 diabetes mellitus without complications - Acidosis, unspecified - Gastro-esophageal reflux disease without esophagitis - Autonomic dysreflexia - Contact with and (suspected) exposure to COVID-19 - Sepsis due to anaerobes - Other specified postprocedural states - Autonomic dysreflexia - Sepsis due to anaerobes - Neurogenic bowel, not elsewhere classified - Infection and inflammatory reaction due to cystostomy catheter, initial encounter - detention (current) use of oral hypoglycemic drugs - Other specified postprocedural states - Neuromuscular dysfunction of bladder, unspecified - Acidosis, unspecified - Urinary catheterization as the cause of abnormal reaction of the patient, or of later complication, without mention of misadventure at the time of the procedure - Proteus (mirabilis) (morganii) as the cause of diseases classified elsewhere - Urinary catheterization as the cause of abnormal reaction of the patient, or of later complication, without mention of misadventure at the time of the procedure - Gastro-esophageal reflux disease without esophagitis - Other long-term (current) drug therapy - Other muscle spasm - Neurogenic bowel, not elsewhere classified 10/29/2021 01:33 [facility] [place] TYPE: Medical Surgical COMPLAINT: - SEPSIS DIAGNOSES: - Infection and inflammatory reaction due to indwelling urethral catheter, initial encounter - Allergy status to other drugs, medicaments and biological substances - Other extermination supervisor (current) drug therapy - Contact with and (suspected) exposure to COVID-19 - Quadriplegia, unspecified - Type 2 diabetes mellitus with hyperglycemia - Contact with and (suspected) exposure to COVID-19 - Severe sepsis without septic shock - Allergy status to other drugs, medicaments and biological substances - Neuromuscular dysfunction of bladder, unspecified - Infection and inflammatory reaction due to indwelling urethral catheter, initial encounter - Gram-negative sepsis, unspecified - Severe sepsis without septic shock - Cystitis, unspecified without hematuria - Cystitis, unspecified without hematuria - Gram-negative sepsis, unspecified - Gastro-esophageal reflux disease without esophagitis - Quadriplegia, unspecified - Sepsis, unspecified organism - Gastro-esophageal reflux disease without esophagitis - Other long-term (current) drug therapy - Neuromuscular dysfunction of bladder, unspecified - Type 2 diabetes mellitus with hyperglycemia 07/03/2021 11:[address] [facility] [place] TYPE: Critical Care COMPLAINT: - SEPSIS DIAGNOSES: - COVID-19 - Proteus (mirabilis) (morganii) as the cause of diseases classified elsewhere - COVID-19 - Proteus (mirabilis) (morganii) as the cause of diseases classified elsewhere - Other hypotension - Quadriplegia, unspecified - Bee allergy status - intermodal truck driver (current) use of antibiotics - Urinary catheterization as the cause of abnormal reaction of the patient, or of later complication, without mention of misadventure at the time of the procedure - Acidosis - Acidosis - Other extermination supervisor (current) drug therapy - Other extermination supervisor (current) drug therapy - Other hypotension - intermodal truck driver (current) use of antibiotics - Infection and inflammatory reaction due to indwelling urethral catheter, initial encounter - Autonomic dysreflexia - Neurogenic bowel, not elsewhere classified - Urinary catheterization as the cause of abnormal reaction of the patient, or of later complication, without mention of misadventure at the time of the procedure - Other specified sepsis - Neuromuscular dysfunction of bladder, unspecified - Surgical procedure, unspecified as the cause of abnormal reaction of the patient, or of later complication, without mention of misadventure at the time of the procedure - Neurogenic bowel, not elsewhere classified - Elevated white blood cell count, unspecified - Elevated white blood cell count, unspecified - Neuromuscular dysfunction of bladder, unspecified - Other specified sepsis - Infection and inflammatory reaction due to other urinary catheter, initial encounter - Quadriplegia, unspecified - Bee allergy status - Gastro-esophageal reflux disease without esophagitis - Infection and inflammatory reaction due to indwelling urethral catheter, initial encounter - Autonomic dysreflexia - Gastro-esophageal reflux disease without esophagitis [email or web address]
--- NOTE | 2022-04-20 02:00 | NUR ---
PT DIRECT ADMIT TO ICU. NURSE REPORT OBTAINED FROM NIYA MALDONADO. PT IS AWAKE, ALERT AND ORIENTED X 4 WTIH A GCS OF 15. PT DENIES ANY PAIN AT THIS TIME. PT TRANSFERRED TO ICU WITH RN PRESENT. PT MOVED TO FROM ED [facility] TO HOSPITAL BED WITHOUT PROBLEM. TWO RN SKIN CHECK PERFORMED WITH ZIA MALDONADO. MEPELEX APPLIED TO COCCYX. PT BATHED IN CHG WIPES. CATHETER CARE PERFORMED. PT PLACED IN POSITION OF COMFORT WITH HOB ELEVATED TO 30 DEGREES. PT'S VOIDS PADDED WT PILLOWS. V/S ASSESSED AND ALARM LIMITS SET. REPEAT LACTATE BEING DRAWN AT THIS TIME. NURSE CALL LIGHT PLACED IN PTS HAND. PT WITH NO COMPLAINTS AT THIS TIME. PT TRANSFERRED TO ICU WITH RN PRESENT. PT MOVED TO HOSPITAL BED AND SKIN ASSESSED WT ZIA MALDONADO.
--- NOTE | 2022-04-20 06:43 | NUR ---
PT REMAINS AWAKE, AND MORE ALERT WITH A GCS OF 15. PT IS ABLE TO FOLLOW SIMPLE COMMANDS WITH BILAT. UPPER EXTREMITIES. PT'S RESPIRATIONS ARE NON-LABORED. PT REQUIRED SUPPLEMENTAL O2 THROUGHOUT THE NIGHT D/T LOW O2 SATURATIONS. PT ABLE TO SPEAK IN FULL SENTANCES AND PARTICIPATE IN BREATHING EXERCISES. PT HAS BEEN IN A NSR, NORMOTENSIVE AND A-FEBRILE THROUGHOUT THE NIGHT. PT WITH ADEQUATE UO. LAST BM NOTED ON 04/17. PT TURNED Q-2 HRS TO MAINTAIN SKIN INTEGRITY. LABS: REDUCTION IN LEUKOCYTOSIS - WBC 11 DOWN FROM 12.2. LACTIC ACIDOSIS RESOLVED, LACTATE 1.4 DOWN FROM 3.9. BMP UNREMARKABLE. H/H STABLE. PUD/PE PROPHALAXYS NOT YET ORDERED MY MD. PT RECEIVED 2 G. CEFEPIME. BC PENDING.
--- NOTE | 2022-04-20 07:30 | NUR ---
REPORT RECIEVED. RESTING NOW,
--- NOTE | 2022-04-20 07:45 | NUR ---
DR. QUIROGA HERE TO SEE PATIENT.
--- NOTE | 2022-04-20 08:00 | NUR ---
DROWSY, ASSESSMENT DONE. TALKING ABOUT RECENT HEALTH PROBLEMS. C/O TIGHTNESS IN UPPER ABD. STATES THAT IS WHAT HAPPENED TO HIM LAST NIGHT AND THAT IS WHY THEY HAD TO DO COMPRESSIONS ON HIS LAST NIGHT. PATIENT SAID THIS TIGHTNESS LEAD HIM TO NO BE ABLE TO BREATH RIGHT. PATIENT ASKING ABOUT MEDICATIONS. TALKED WITH PATIENT ABOUT POC FOR THE DAY, INDICATES UNDERSTANDING. SITTING UP IN BED FOR BREAKFAST.
--- NOTE | 2022-04-20 09:39 | NUR ---
NANCY VITALS CHARTED. PATIENT FINISHED WITH BREAKFAST AND ASKING FOR NICOTINE GUM AND AM MEDS. RN NOTIFIED. CALL LIGHT AND PERSONAL ITEMS IN EASY REACH
--- NOTE | 2022-04-20 10:30 | NUR ---
Spoke with Martinez. He cont. to live at [facility]. He is partial quad and uses an electric wc. He is able to use a cell phone. He denies any needs for DME or resources. He does state this admission is different from his previous admissions as he has upper abd pain. He would like me to call [facility] and ask him to bring his electric wc to the hospital.
--- NOTE | 2022-04-20 11:05 | NUR ---
RESTING AT THIS TIME. CONTINUES TO C/O PAIN IN UPPER ABD/LOWER CHEST. DR. QUIROGA AWARE. ASKING ABOUT MEDICATIONS HE TAKES AT HOME, PHARMACIST TO TALK WITH PATIENT REGARDING THIS. NO FUTHER CHANGES.
--- NOTE | 2022-04-20 12:00 | NUR ---
ASSESSMENT DONE. CONTINUES WITH INTERMITTENT DISCOMFORT IN UPPER ABD.
--- NOTE | 2022-04-20 12:16 | NUR ---
PATIENT AWAKE IN BED EATING LUNCH. VITALS AND I&OS CHARTED. BARRIENTOS EMPTIED. PATIENT REPORTS AFTER A FEW BITES THE "SOLID FOOD" MAY NOT HAVE BEEN THE BEST IDEA FOR HIM, AND IS GOING TO TAKE IT SLOW WITH THE REST OF LUNCH. RN NOTIFIED. CALL LIGHT AND PERSONAL ITEMS IN EASY REACH
--- NOTE | 2022-04-20 12:20 | EKG ---
[facility] [address] [place] [address] Signed Sinus tachycardia Left axis deviation Nonspecific ST abnormality Abnormal ECG When compared with ECG of 10-MAR-2022 13:02, No significant change was found Confirmed by Edwin Quiroga MD () on 04/20/2022 12:19:59 PM Electronically Signed By: EDWIN QUIROGA MD 04/20/22 1220 PATIENT NAME: JONATHANWILLY II Electrocardiogram DATE OF : 70 PHYSICIAN: EDWIN QUIROGA MD REPORT #: [id number] REPORT IS CONFIDENTIAL AND NOT TO BE RELEASED WITHOUT AUTHORIZATION
[2022-04-20] MEDS ORDERED: BACLOFEN10 MG PO (12:52)
[2022-04-20] MEDS ORDERED: CEPHALEXIN250 MG PO (12:57)
--- NOTE | 2022-04-20 13:00 | NUR ---
PATIENT WITH SEVERE SHAKING SPELL. LEGS ARE SHAKING UNCONTROLLABLELY. ATTEMPTING TO HELP PATIENT WITH THIS. C/O FEELING HOT. HR 130. TEMP-99.3 AX.
[2022-04-20] MEDS ORDERED: MIRALAX17 GM PO (13:01)
--- NOTE | 2022-04-20 13:15 | NUR ---
UNABLE TO STOP SHAKING. REPOSITIONED TO LEFT SIDE. NAUSEATED.
[2022-04-20] MEDS ORDERED: OMEPRAZOLE20 MG PO (13:30)
--- NOTE | 2022-04-20 13:30 | NUR ---
ROUTINE MEDICATIONS GIVEN ALONG WITH NORCO 7.5 MG PO.
--- NOTE | 2022-04-20 13:32 | NUR ---
medications reconciled using pharmacy records and patient interview. Patient takes his medications at specific times and requests to follow home schedule
--- NOTE | 2022-04-20 14:10 | NUR ---
MORPHINE 4 MG IV GIVEN PATIENT HAS BEEN SHAKING UNCONTOLLABLE IN LEGS. IS AWARE AND SAID OKAY TO GIVE THIS.
--- NOTE | 2022-04-20 14:10 | NUR ---
ZOFRAN GIVEN FOR NAUSEA.
--- NOTE | 2022-04-20 14:15 | NUR ---
PT ALERT, ORIENTED AND SITTING UP IN BED WATCHING A VIDEO ON HIS PHONE. PT PLEASANT, REMEMBERED ME FROM PREVIOUS ADMISSIONS. PT C/O PAIN IN HIS CHEST SAID STAFF IS AWARE.PT REQUESTED PRAYER, LEFT G.POST AND SHARED WITH HENRY MALDONADO REGARDING PT'S PAIN. SHE WILL FOLLOW
--- NOTE | 2022-04-20 14:30 | NUR ---
FEELING BETTER MORPHINE. RESTING.
--- NOTE | 2022-04-20 16:36 | NUR ---
Attempted to call the [facility] transportion and unable to contact throughout the day. Will try again tomorrow.
--- NOTE | 2022-04-20 17:57 | NUR ---
SITTING UP IN BED TAKING DINNER. PATIENT STATES HE FEELS MUCH BETTER THIS AFTERNOON, SP CATH REMAINS PATENT IVF INFUSING.
--- NOTE | 2022-04-20 19:30 | NUR ---
ASSUMED CARE OF PT UPON RECEIVING HANDOFF REPORT FROM DAY NURSE. PT AOX4, NAD, NO C/O. SITTING UP IN BED. CALL LIGHT IN REACH. WILL CONTINUE TO MONITOR AND FOLLOW POC.
--- NOTE | 2022-04-20 23:00 | NUR ---
PT SITTING UP IN BED, HIGH FOWLERS POSITION. AOX4, NAD, NO C/O. NO CHANGE TO PREVIOUS ASSESSMENT. WILL CONTINUE TO MONITOR AND FOLLOW POC.
--- NOTE | 2022-04-21 04:37 | NUR ---
PT SLEEPING IN BED ON LEFT SIDE, EASILY AROUSED. NAD, NO C/O. NO CHANGE TO PREVIOUS ASSESSMENT. WILL CONTINUE TO MONITOR AND FOLLOW POC.
--- NOTE | 2022-04-21 06:51 | NUR ---
PT WITH NO ACUTE OVERNIGHT EVENTS. PT HAD SOME HTN WITH PAIN, BUT REPORTED THAT PAIN WAS RECEDING WITH AFTER MEDICATION PER MAR. PT WITH NO C/O. WILL CONTINUE TO MONITOR AND FOLLOW POC UNTIL GIVING HANDOFF REPORT TO DAY NURSE.
--- NOTE | 2022-04-21 07:20 | NUR ---
PATIENT SLEEPING WITH EYES CLOSED, LYING ON SIDE. LR INFUSING AT 125CC/HR. RR EVEN AND UNLABORED.
--- NOTE | 2022-04-21 08:10 | NUR ---
PATIENT AWAKE IN BED, VITALS AND I&OS CHARTED, BARRIENTOS EMPTIED. FACE AND HANDS WASHED. PLAN FOR BEDBATH TODAY. PATIENT REPOSITIONED FOR BREAKFAST. CALL LIGHT AND PERSONAL ITEMS IN EASY REACH. NO OTHER NEEDS AT THIS TIME.
--- NOTE | 2022-04-21 09:00 | NUR ---
PATIENT SITTING IN BED WATCHING TV, JUST FINISHED BREAKFAST. PATIENT HAS NO COMPLAINTS AT THIS TIME. PATIENT IS ORIENTED. LUNGS ARE CLEAR AND SLIGHTLY DIMINISHED. ABDOMEN IS FIRM AND GUARDED ON PALPATION, WITH ACTIVE BOWEL SOUNDS. PATIENT HAS A SUPRAPUBIC CATHETER IN PLACE, DRAINING TO GRAVITY. BILATERAL FEET IN BOOTS FOR SUPPORT AND PRESSURE RELIEF. PATIENT MOVES UPPER EXTREMETIES WELL. PATIENT ON ROOM AIR.
--- NOTE | 2022-04-21 10:44 | NUR ---
PATIENT TRANSFERRED FROM BED TO CHAIR VIA LYUBOV. BEDBATH GIVEN, TEETH BRUSHED, BARRIENTOS CARE PROVIDED. LEGS ELEVATED. CALL LIGHT AND PERSONAL ITEMS IN EASY REACH
--- NOTE | 2022-04-21 10:45 | NUR ---
PATIENT BATHED IN BED, BARRIENTOS CARE PERFORMED. PATIENT LIFTED TO RECLINER CHAIR WITH LIFT, TOLERATED WELL. SKIN CARE DONE, AND NYSTATIN POWDER APPLIED TO GROIN AREA, PANNUS, AND UNDER RIGHT ARM.
--- NOTE | 2022-04-21 12:01 | NUR ---
PATIENT SITTING IN CHAIR, WATCHING TV, EATING LUNCH. PLEASANT, NO COMPLAINTS
--- NOTE | 2022-04-21 13:00 | NUR ---
Spoke with Martinez. Feels better today. Still would like his electric wc brought to the hospital. Attempted to call transport at the [facility] and was unable to reach. Left a message asking they deliver his wc to hospital. Pt will use the wc van to get home on dc.
--- NOTE | 2022-04-21 13:37 | NUR ---
PT ALERT, ORIENTED AND SITTING IN CHAIR. PT IS PLEASANT, SEEMED PLEASED I STOPPED BY. HAD GOOD CONVERSATION, PT FEELING SOMEWHAT BETTER TODAY. ABD PAIN NOT MUCH TODAY. GAVE BLESSING, WILL FOLLOW
--- NOTE | 2022-04-21 15:55 | NUR ---
PATIENT TRANSFERED TO BED WITH LYUBOV PER PATIENT REQUEST. BARRIENTOS EMPTIED AND DINNER ORDERED AND PAIN MED GIVEN BY ERICA CAMERON. CALL LIGHT AND PERSONAL ITEMS IN EASY REACH
--- NOTE | 2022-04-21 16:00 | NUR ---
PATIENT MOVED FROM CHAIR TO BED WITH LIFT. AFTER PUTTING PATIENT BACK IN BED, HE BEGAN TO SHAKE/TREMOR IN HIS LEGS. PATIENT STATED IT FELT 'TIGHT' LIKE A BAND AROUND HIS ABDOMEN. PATIENT HAD THIS HAPPEN YESTERDAY, AND HIS HR ELEVATED, HE WAS GIVEN MORPHINE WHICH STOPPED THE TREMORS. TODAY I SPOKE TO AND WE GAVE MORPHINE 4MG IV. PATIENT'S HR WAS UP TO 170 AND HE WAS SHAKING. AFTER MORPHINE, PATIENT'S HR IMMEDIATELY STARTED TO COME DOWN AND HIS TREMORS DECREASED. PATIENT WAS THEN TAKEN TO XR. HE TOLERATED THIS WELL. AFTER RETURNING TO ROOM, PATIENT'S TREMORS HAVE STOPPED, HIS HR IS 88. HE STATES HE FEELS MUCH BETTER. 1400 ASSESSMENT HAD NO CHANGE FROM AM ASSESSMENT. PATIENT HAS HAD A GOOD DAY SITTING UP IN CHAIR, LISTENING TO MUSIC, ENGAGING IN CONVERSATION AND SMILING. LUNGS REMAIN CLEAR, NEURO INTACT.
--- NOTE | 2022-04-21 17:34 | NUR ---
PATIENT SITTING UP EATING, STATES HE FEELS A LITTLE LIGHT HEADED. BP 77/57 (64). PATIENT PLACED IN [place]. 10 MINUTES LATER PATIENT REQUESTED TO SIT UP. COLOR IS GOOD IN FACE AND HE FEELS BETTER. PATIENT'S BP 90/53(61). FIVE MINUTES AFTER SITTING UP, PATIENT STARTS TO FEEL A LITTLE DIZZY AGAIN AND HIS FACE IS PALE, BP TO 78/51 (61). [place] POSITION AGAIN AND PATIENT FEELS BETTER. 10 MINUTES LATER PATIENT'S BP IS 84/50 (62). PATIENT SAT BACK UP TO TRY AND FINISH EATING AGAIN. TEN MINUTES LATER PATIENT IS PALE AGAIN AND BP IS 77/46 (57). NOTIFIED, AND ORDERS RECEIVED. AT 1810 PATIENT SITTING UP IN BED, EATING, FEELING BETTER. BP 92/54 (66).
--- NOTE | 2022-04-21 19:00 | NUR ---
PATIENT RESTING AND WATCHING TV. NO NEEDS AT THIS TIME. HR 84 BP 125/81.
--- NOTE | 2022-04-21 20:30 | NUR ---
PATIENT TURNED TO HIS LEFT SIDE. FLEET ENEMA ADMINISTERED PER ORDERS. PATIENT TOLERATED WELL. DISCUSSED TIMING FOR CHRONIC HOME MEDS; PATIENT PREFERS THE MAJORITY CLOSE TO 2200. NO CURRENT CONCERNS OR COMPLAINTS; BESIDES THE CONSTIPATION. PATIENT UNDERSTANDS THE PLAN. CALL LIGHT IN REACH.
--- NOTE | 2022-04-21 20:58 | NUR ---
PATIENT CONTINUES TO REST ON HIS LEFT SIDE. PRN NICOTINE GUM PROVIDED. CALL LIGHT IN REACH. NO BM OF YET.
--- NOTE | 2022-04-21 22:00 | NUR ---
PATIENT PROVIDED WITH EVENING MEDS. NO BM OF NOW. IV FLUIDS PER ORDER, SITE WNL. VS STABLE.
--- NOTE | 2022-04-21 22:42 | NUR ---
PATIENT RESTING IN BED EYES CLOSED. VS STABLE. NO BM NOTED. FRESH ATTEND PLACED UNDER PATIENT. NO OTHER NEEDS.
--- NOTE | 2022-04-21 23:08 | NUR ---
VO RECEIVED FROM DR. CRESPO FOR 1X DOSE OF MORPHINE 4MG IV PUSH FOR PAIN.
--- NOTE | 2022-04-21 23:36 | NUR ---
PATIENT HAVING SEVERE CRAMPING AND IS REPORTING SEVERE PAIN RELATED TO HAVING A BM. DIGITAL EXAM FOUND SMALL AMOUNT OF SOFT STOOL. SOAP SUDS ENEMA INSTILLED WITH NO RESULTS. DISCUSSED WITH MD AND ONE TIME DOSE MORPHINE ORDERED. PATIENT REPOSITIONED AND PROVIDED WITH ICE CHIPS AND COOL CLOTH ON FACE. BARRIENTOS EMPTIED; DRAINING EASILY. HR ELEVATED TO THE 130'S WHILE PATIENT IN DISTRESS. AFTER MORPHINE RECEIVED PATIENT WAS ABLE TO RELAX AFTER ABOUT 10 MINS. PATIENT IS NOW RESTING WITH EYES CLOSED; HR 70'S. VS STABLE. PATIENT STILL HAS NOT HAD A BM; ONLY SMALL SIGNS OF STOOL NOTED WITH ENEMA. WILL CONTINUE TO MONITOR.
--- NOTE | 2022-04-22 01:00 | NUR ---
PATIENT RESTING WITH EYES CLOSED. TURNED TO LEFT SIDE FOR SLEEP. PATIENT CHECKED FOR BM; WHICH HE DID NOT HAVE. PATIENT REPORTS FEELING BETTER AT THIS TIME. VS STABLE. ALLOWED PATIENT TO REST.
--- NOTE | 2022-04-22 04:00 | NUR ---
PATIENT HAS CONTINUED TO REST. HR 60'S. APPEARS COMFORTABLE. CALL LIGHT IN REACH. GOOD URINE OUTPUT. IVF PER ORDER, SITE WNL. PATIENT STILL HAS NOT HAD BM. WILL CONTINUE TO MONITOR.
--- NOTE | 2022-04-22 07:45 | NUR ---
PATIENT RESTING, LYING ON SIDE, USING CELL PHONE. RR EVEN AND UNLABORED.
--- NOTE | 2022-04-22 08:33 | NUR ---
PATIENT LYING IN BED, ON PHONE. ALERT & ORIENTED X 4. NO COMPLAINTS AT THIS TIME. LUNGS ARE CLEAR THROUGHOUT. PATIENT ON ROOM AIR. ABDOMEN REMAINS OBESE AND SLIGHTLY DISTENDED WITH ACTIVE BOWEL SOUNDS. PATIENT MOVES UPPER EXTREMETIES. BILATERAL LOWER EXTREMETIES WITH WEAK, BUT PALPABLE PULSES INTACT. LEGS ELEVATED ON PILLOWS WITH SOFT BOOTS IN PLACE.
--- NOTE | 2022-04-22 12:13 | NUR ---
PT ALERT, ORIENTED AND RESTING IN BED ON L SIDE. HAD GOOD VISIT, PT TOLD OF HIS HUNTING AND FISHING TIMES IN LIFE. GAVE BLESSING, WILL FOLLOW
--- NOTE | 2022-04-22 12:14 | NUR ---
PATIENT RESTING PROPPED UP ON LEFT SIDE FOR LUNCH. CALL LIGHT AND PERSONAL ITEMS IN EASY REACH
--- NOTE | 2022-04-22 13:29 | NUR ---
PATIENT REPORT GIVEN TO ERICA MAC. PATIENT MOVED VIA STRETCHER TO ROOM 112. ALL BELONGINGS SENT WITH PATIENT. PATIENT WAS LYING IN BED WATCHING TV. HAD NO COMPLAINTS OR CONCERNS AT TIME OF TRANSFER. ASSESSMENT WAS UNCHANGED FROM AM ASSESSMENT. NO BM NOTED.
--- NOTE | 2022-04-22 13:30 | NUR ---
RECIEVED BEDSIDE REPORT FROM ERICA LAGUNA. PT BROUGHT TO MS VIA STRETCHER TO ROOM 112. PT ORIENTED AVIATION MANAGER LIGHT, WITHIN REACH. DENIES FURTHER NEEDS AT THIS TIME. CALL LIGHT WITHIN REACH.
--- NOTE | 2022-04-22 13:45 | NUR ---
PT FEELS BOWELS ARE MOVING AND REQUESTED TO HOLD OFF ON MIRALAX. BOWEL TONES ACTIVE IN ALL QUADRANTS.
--- NOTE | 2022-04-22 15:14 | NUR ---
PT RESTING IN BED, REQUESTED PRN NICOTINE GUM, PROVIDED (PER EMAR). PT REQUESTED MIRALAX. PT PASSING GAS, BOWEL TONES ACTIVE IN ALL QUADRANTS. DENIES FURTHER NEEDS. CALL LIGHT WITHIN REACH
--- NOTE | 2022-04-22 17:37 | NUR ---
PT RESTING IN BED, AWAKE. DENIES FURTHER NEEDS AT THIS TIME. CALL LIGHT WITHIN REACH.
--- NOTE | 2022-04-22 19:00 | NUR ---
ASSUMED CARE OF PT UPON RECEIVING BEDSIDE HANDOFF REPORT FROM DAY NURSE. PT AOX4, NAD, NO C/O. WILL CONTINUE TO MONITOR AND FOLLOW POC.
--- NOTE | 2022-04-22 23:00 | NUR ---
PT REPORTS PAIN HAS DECREASED AFTER ADMINISTRATION OF MEDICATIONS PER MAR. WILL CONTINUE TO ASSESS AND FOLLOW POC.
--- NOTE | 2022-04-23 07:01 | NUR ---
PT WITH NO ACUTE OVERNIGHT EVENTS. VSS, NAD, NO C/O. PT HAD MULTIPLE MEDS FOR CONSTIPATION PER MAR, WELL GOOD PO FLUID INTAKE, INCLUDING PRUNE AND GRAPE JUICES. NO BM THIS SHIFT. GOOD UOP. PT ASKING FOR VOLTAREN CREAM FOR CHRONIC PAIN. ENDORSED TO DAY NURSE UPON HANDOFF OF PT CARE DURING BEDSIDE REPORT.
--- NOTE | 2022-04-23 07:46 | NUR ---
RECIEVED SHIFT REPORT. PT RESTING IN BED. DENIES FURTHER NEEDS. CALL LIGHT WITHIN REACH
--- NOTE | 2022-04-23 10:08 | NUR ---
pt requested prn nicotine gum and miralax, administered (per emar). denies further needs at this time. call light within reach
--- NOTE | 2022-04-23 14:35 | NUR ---
PT RESTING IN BED, AWAKE BUT TRYING TO NAP. DENIES FURTHER NEEDS. CALL LIGHT WITHIN REACH.
--- NOTE | 2022-04-23 15:41 | NUR ---
PT RESTING AT THIS TIME, EYES CLOSED, BREATHING EVEN AND UNLABORED. CALL LIGHT WITHIN REACH
--- NOTE | 2022-04-23 17:37 | NUR ---
PT ABLE TO TAKE A NAP. TELE DISCONTIUNED. COMPANY AT BEDSIDE. CALL LIGHT WITHIN REACH.
--- NOTE | 2022-04-23 18:15 | NUR ---
PT ABLE TO HAVE A EXTRA LG BM. PT STATES HE FEELS MENTALLY BETTER AND WILL CONTIUNE TO DRINK MIRALAX. PT ROTATED ONTO BACK. DENIES FURTHER NEEDS. CALL LIGHT WITHIN REACH
--- NOTE | 2022-04-23 19:38 | NUR ---
RECEIVED REPORT FROM DAY SHIFT RN. PATIENT IS RESTING IN BED VISITING WITH FAMILY. NO NEEDS NOTED. CALL LIGHT IN REACH.
--- NOTE | 2022-04-23 22:32 | NUR ---
PATIENT ASSESMENT COMPLETED. VITALS TAKEN AND RECORDED. BARRIENTOS EMPTIED AND BARRIENTOS CARE COMPLETED. PATIENTS INTAKE AND OUTPUT RECORDED. PATIENT REPOSITIONED IN BED. PATIENTS OM MEDS PER ORDER. PATIENT RATES PAIN IN HIS BACK AND NECK AT A 7/10, SCHEDULED PAIN MED GIVEN PER ORDER. PATIENT GIVEN PRN NICOTINE GUM. FRESH WATER PROVIDED. IV INFUSING PER ORDER. PATIENT IS ON RA. PATIENTS IV FLUSHED. PATIENT DENIES ANY FURTHER NEEDS. CALL LIGHT IN REACH.
--- NOTE | 2022-04-24 00:11 | NUR ---
PATIENT IS RESTING IN BED WITH EYES CLSOED, RR 16. CALL LIGHT IN REACH. IV INFUSING PER ORDER.
--- NOTE | 2022-04-24 03:04 | NUR ---
PATIENT REPOSITIONED IN BED. PATIENT PROVIDED WITH SNACK. PATIENT REPORTS 3/10 PAIN AND DENIES THE NEED FOR MEDICATION. PATIENTS IV INFUSING PER ORDER. PATIENT DENIES ANY FURTHER NEEDS. CALL LIGHT IN REACH.
--- NOTE | 2022-04-24 04:08 | NUR ---
PATIENT IS RESTING IN BED WATCHING A MOVIE ON HIS PHONE. PATIENT PROVIDED WITH FRESH ICE WATER. NO FURTHER NEEDS NOTED. CALL LIGHT IN REACH.
--- NOTE | 2022-04-24 06:10 | NUR ---
PATIENT INCONT STOOL. ATTEND CHANGED AND SHANKAR CARE COMPLETED. CATH CARE COMPLETED. PATIENT REPOSITIONED IN BED. PATIENTS VITALS TAKEN AND RECORDED. BARRIENTOS EMTIED. IV INFUSING PER ORDER. PATIENTS AM MEDS GIVEN PER ORDER. PATIENT RATES PAIN AT A 7/10 IN NECK AND BACK, SCHEDULED PAIN MED GIVEN PER ORDER. PATIENT PROVIDED WITH FRESH ICE WATER. PATIENT DENIES ANY NEEDS. CALL LIGHT IN REACH.
--- NOTE | 2022-04-24 07:47 | NUR ---
RECIEVED SHIFT REPORT. PT AWAKE IN BED, DENIES FURTHER NEEDS. CALL LIGHT WITHIN REACH.
--- NOTE | 2022-04-24 08:45 | NUR ---
WOUND CARE CONSULT COMPLETED. PT WTH 2 WOUNDS TO RIGHT GLUTEAL CLEFT, SUPERIOR WOUND MEASURES 2.5 X 0.5 CM SUPERIFICIAL, INFERIOR WOUND MEASURES 1 X 0.5 SUPERFICIAL. WOUND CLEANSED WITH WOUND SPRAY. CAVALLON ADVANCED SKIN BARRIER APPLIED TO PROTECT FROM LOOSE STOOLS, WOUND COVERED WITH ALLEVYN FOAM. PT REPOSITIONED TO BACK. EXPLAINED TO PT THAT WOUND APPEARS TO BE MORE FRICTION RELATED THAN PRESSURE, DISCUSSED WITH PRIMARY RN MINIMIZING FRICTION DURING REPOSITIONING AND PERICARE.
--- NOTE | 2022-04-24 14:39 | NUR ---
LEFT ARM SALINE LOCK REMOVED WITH CATHETER INTACT. PATIENT WITH FRESH ATTENDS ON AND DRESSED. VITALS ARE CURRENT.
[2022-04-24] MEDS ORDERED: DIAZEPAM2 MG PO (21:50)
[2022-04-24] MEDS ORDERED: CONSTULOSE10 GM/15 M PO (21:50)
[2022-05-05] MEDS ORDERED: VOLTAREN ARTHRI20 GM TP (15:26)
== END 2022-04-24 15:50 | disposition home or self-care (01) | DRG 698 ==
LOC: ED 22:32 → CCU 04-20 01:41 → MS 04-20 01:41
PROVIDERS: ADMIT Family Medicine; ATTEND Internal Medicine
DX: T83.510A Infection and inflammatory reaction due to cystostomy catheter, initial encounter (principal); A41.9 Sepsis, unspecified organism; G82.50 Quadriplegia, unspecified; R65.20 Severe sepsis without septic shock; N30.90 Cystitis, unspecified without hematuria; Z20.822 Contact with and (suspected) exposure to COVID-19; K59.00 Constipation, unspecified; E11.9 Type 2 diabetes mellitus without complications; G90.4 Autonomic dysreflexia; Z98.890 Other specified postprocedural states; Z91.030 Bee allergy status; Z79.899 Other long term (current) drug therapy
CPT/HCPCS: 36415; 51702; 71045; 74018; 74177; 80048; 80053; 81001; 83605; 83735; 84100; 85025; 85610; 85730; 87040; 87502; 93005; 93010; 99285-25; A9270; J0692; J1650; J1815; J2270; J2405; J7030; J7121; U0003

== ENCOUNTER 2022-04-24 18:05 | Emergency (ER) | payer MEDICARE, OTHER ==
[~2022-04-24] VITALS: Ht 177.8 cm; Wt 129.9 kg
[~2022-04-24 18:05] MED LIST changes: +CEPHALEXIN250 MG PO; +MIRALAX17 GM PO
--- OUTSIDE RECORDS SUMMARY | 2022-04-24 18:08 | XMS ---
PreManage Notification: WILLY CASTILLO Security Tone Artist Apprentice Events No recent Security Events currently on file CRITERIA MET - PDM - [facility] - 2 Visits in 30 Days CARE PROVIDERS -Suze- Dentist: Tax Senior Associate [facility] Dental [facility] PHONE: [phone] TIMOTHY Garcia Physical Medicine \T\ Rehabilitation Current PHONE: Unknown Isaac Siddiqui Hoop Machine Operator/Drop Worker 02/27/2022-Current PHONE: [phone] ARIANA AGOSTO Physician Quality Control Director 06/04/2018-Current PHONE: Unknown JAQUELINE [facility]/[place] 03/26/2019-[facility] PHONE: [phone] Kat has no Care Guidelines for this patient. Care History Medical/Surgical 09/24/2019 [facility] - PATIENT HAS AN APT WITH DR HUTCHISON-UROLOGIST 10/23/2019 06/20/2019 [facility] - PATIENT HAS AN APT WITH UROLOGIST DR HUTCHISON ON 06/26/2019 @ 1:00PM FOR SP TUBE CHANGE. 03/25/2019 [facility] - PATIENT HAS AN APT WITH DR HUTCHISON-UROLOGIST 03/26/2019 FOR ER FOLLOW UP. E.D. VISIT COUNT (12 MO.) [address] [facility]. TOTAL 6 NOTE: Visits indicate total known visits. ED/UCC VISIT TRACKING (12 MO.) 04/24/2022 18:06 [facility] [place] TYPE: Emergency COMPLAINT: - PAIN 04/19/2022 22:33 [facility] [place] TYPE: Emergency COMPLAINT: - URINE PROBLEM 03/10/2022 12:54 [facility] [place] TYPE: Emergency COMPLAINT: - URINE PROBLEM 10/28/2021 22:20 [facility] [place] TYPE: Emergency COMPLAINT: - WEAKNESS 09/03/2021 11:08 [facility] [place] TYPE: Emergency COMPLAINT: - ALTERED LOC DIAGNOSES: - Unspecified medical devices associated with adverse incidents - Autonomic dysreflexia - Altered mental status, unspecified - Other gas station supervisor (current) drug therapy - Presence of urogenital implants - Other insect allergy status - Other mechanical complication of indwelling urethral catheter, initial encounter 07/03/2021 07:00 [facility] [place] TYPE: Emergency COMPLAINT: - PASSED OUT INPATIENT VISIT TRACKING (12 MO.) 04/20/2022 01:41 [facility] [place] TYPE: Medical Surgical COMPLAINT: - SEVERE SEPSIS,UTI 03/10/2022 16:24 [facility] [place] TYPE: Critical Care COMPLAINT: - SEPSIS, UTI, QUADRIPLEGIA DIAGNOSES: - Sepsis, unspecified organism - commercial credit analyst (current) use of oral hypoglycemic drugs - Quadriplegia, unspecified - Bee allergy status - Acidosis, unspecified - Type 2 diabetes mellitus without complications - Gastro-esophageal reflux disease without esophagitis - Autonomic dysreflexia - Sepsis due to anaerobes - Other specified postprocedural states - Contact with and (suspected) exposure to COVID-19 - Autonomic dysreflexia - Sepsis due to anaerobes - Infection and inflammatory reaction due to cystostomy catheter, initial encounter - commercial credit analyst (current) use of oral hypoglycemic drugs - Neurogenic bowel, not elsewhere classified - Neuromuscular dysfunction of bladder, unspecified - Other specified postprocedural states - Acidosis, unspecified - Urinary catheterization as the cause of abnormal reaction of the patient, or of later complication, without mention of misadventure at the time of the procedure - Urinary catheterization as the cause of abnormal reaction of the patient, or of later complication, without mention of misadventure at the time of the procedure - Proteus (mirabilis) (morganii) as the cause of diseases classified elsewhere - Gastro-esophageal reflux disease without esophagitis - Other residential (current) drug therapy - Neurogenic bowel, not elsewhere classified - Other muscle spasm - Neuromuscular dysfunction of bladder, unspecified - Hypotension, unspecified - Quadriplegia, unspecified - Infection and inflammatory reaction due to cystostomy catheter, initial encounter - Other residential (current) drug therapy - Contact with and (suspected) exposure to COVID-19 - Other muscle spasm - Type 2 diabetes mellitus without complications - Bee allergy status - Hypotension, unspecified 10/29/2021 01:33 [facility] [place] TYPE: Medical Surgical COMPLAINT: - SEPSIS DIAGNOSES: - Contact with and (suspected) exposure to COVID-19 - Severe sepsis without septic shock - Neuromuscular dysfunction of bladder, unspecified - Allergy status to other drugs, medicaments and biological substances - Infection and inflammatory reaction due to indwelling urethral catheter, initial encounter - Severe sepsis without septic shock - Gram-negative sepsis, unspecified - Cystitis, unspecified without hematuria - Gram-negative sepsis, unspecified - Cystitis, unspecified without hematuria - Gastro-esophageal reflux disease without esophagitis - Quadriplegia, unspecified - Gastro-esophageal reflux disease without esophagitis - Sepsis, unspecified organism - Other gas station supervisor (current) drug therapy - Type 2 diabetes mellitus with hyperglycemia - Neuromuscular dysfunction of bladder, unspecified - Infection and inflammatory reaction due to indwelling urethral catheter, initial encounter - Other residential (current) drug therapy - Allergy status to other drugs, medicaments and biological substances - Contact with and (suspected) exposure to COVID-19 - Type 2 diabetes mellitus with hyperglycemia - Quadriplegia, unspecified 07/03/2021 11:29 [facility] [place] TYPE: Critical Care COMPLAINT: - SEPSIS DIAGNOSES: - Acidosis - Acidosis - Other residential (current) drug therapy - Other gas station supervisor (current) drug therapy - senior care (current) use of antibiotics - Other hypotension - Infection and inflammatory reaction due to indwelling urethral catheter, initial encounter - Autonomic dysreflexia - Urinary catheterization as the cause of abnormal reaction of the patient, or of later complication, without mention of misadventure at the time of the procedure - Neurogenic bowel, not elsewhere classified - Other specified sepsis - Neuromuscular dysfunction of bladder, unspecified - Neurogenic bowel, not elsewhere classified - Elevated white blood cell count, unspecified - Surgical procedure, unspecified as the cause of abnormal reaction of the patient, or of later complication, without mention of misadventure at the time of the procedure - Neuromuscular dysfunction of bladder, unspecified - Elevated white blood cell count, unspecified - Other specified sepsis - Infection and inflammatory reaction due to other urinary catheter, initial encounter - Bee allergy status - Quadriplegia, unspecified - Gastro-esophageal reflux disease without esophagitis - Infection and inflammatory reaction due to indwelling urethral catheter, initial encounter - Gastro-esophageal reflux disease without esophagitis - Autonomic dysreflexia - COVID-19 - Proteus (mirabilis) (morganii) as the cause of diseases classified elsewhere - Proteus (mirabilis) (morganii) as the cause of diseases classified elsewhere - COVID-19 - Other hypotension - Quadriplegia, unspecified - senior care (current) use of antibiotics - Urinary catheterization as the cause of abnormal reaction of the patient, or of later complication, without mention of misadventure at the time of the procedure - Bee allergy status [email or web address]
[2022-04-24] MEDS ORDERED: CONSTULOSE10 GM/15 M PO (21:50)
[2022-04-24] MEDS ORDERED: DIAZEPAM2 MG PO (21:50)
== END 2022-04-24 22:15 | disposition home or self-care (01) ==
LOC: ED 18:05
DX: R25.2 Cramp and spasm (principal); K59.00 Constipation, unspecified; G82.50 Quadriplegia, unspecified; Z91.038 Other insect allergy status; Z79.899 Other long term (current) drug therapy; Z20.822 Contact with and (suspected) exposure to COVID-19
CPT/HCPCS: 36415; 71045; 74177; 80053; 81003; 83605; 85025; C9803; J3010; J3360; J7121; Q9967; U0003

== ENCOUNTER 2022-06-06 08:45 | Day surgery (SDC) | payer MEDICARE, OTHER ==
[2022-06-01 15:21] VITALS: BP 137/86
[~2022-06-06] VITALS: Ht 177.8 cm; Wt 128.2 kg
[~2022-06-06 08:45] MED LIST changes: +CONSTULOSE10 GM/15 M PO; +DIAZEPAM2 MG PO; +VOLTAREN ARTHRI20 GM TP
[2022-06-06 09:06] VITALS: BP 136/76
[2022-06-06] MEDS ORDERED: VALIUM2 MG PO (09:13)
[2022-06-06] MEDS ORDERED: DOXYCYCLINE HY100 MG PO (09:14)
[2022-06-06 11:36] VITALS: BP 103/53
[2022-06-06 12:35] VITALS: BP 126/69
--- NOTE | 2022-06-08 19:25 | OR ---
[facility] [address] [place], [place] [address] Signed DATE OF OPERATION: 06/06/2022 SURGEON: Cheo Hutchison MD PREOPERATIVE DIAGNOSES: 1. Neurogenic bladder. 2. Recurrent urinary tract infections with associated urosepsis. POSTOPERATIVE DIAGNOSES: 1. Neurogenic bladder. 2. Recurrent urinary tract infections with associated urosepsis. NAMES OF PROCEDURES: 1. Diagnostic cystoscopy. 2. Suprapubic tube exchange. 3. Botox bladder injection 200 units. ANESTHESIA: General. ESTIMATED BLOOD LOSS: Minimal. COMPLICATIONS: None. SPECIMENS: None. DRAINS: A fresh 22-Gibraltarian silicone catheter inserted as a suprapubic cystostomy tube and connected to gravity drainage. INDICATION FOR PROCEDURE: Mr. Castillo is a very pleasant 51-year-old gentleman with a history of quadriplegia with associated neurogenic bladder, who is well-known to me. He neurogenic bladder with associated urinary retention is currently being managed with an indwelling suprapubic tube. This tube is changed approximately every three weeks. He recently presented to me with complaints of an increased amount of urinary tract infections that are resulting in bouts of sepsis. I explained to him that this is likely due to increased incidence Electronically Signed By: CHEO HUTCHISON MD 06/08/22 1925 PATIENT NAME: WILLY CASTILLO II OPERATIVE REPORT DATE OF : 70 REPORT #: [id number] PHYSICIAN: CHEO HUTCHISON MD PCP: [facility] REPORT IS CONFIDENTIAL AND NOT TO BE RELEASED WITHOUT AUTHORIZATION [facility] [address], [place] [address] Signed of bacterial translocation into the blood stream due to elevated bladder pressures. I do not have an actively functioning urodynamics machine at this time, so I am unable to confirm that. Despite that, the patient has elected to give the Botox bladder injection a try. His existing 20-Gibraltarian suprapubic tube will be exchanged today prior to the procedure. OPERATIVE FINDINGS: 1. Diagnostic cystoscopy reveals a very elevated bladder neck, so it was difficult to get a good visualization of the superior aspect of the posterior wall and the dome of the bladder with a rigid cystoscope. There was diffuse grade 2 to 3 bladder wall trabeculation noted. There are no obvious suspicious bladder masses or lesions. No bladder calculi. 2. His existing 20-Gibraltarian silicone tube was removed and replaced by a 22-Gibraltarian silicone tube into his existing cystostomy site without difficulty. The balloon was filled with 10 mL of sterile water. 3. The patient underwent injection of a total of 200 units of botulinum toxin in 1 mL aliquots. The reconstituted Botox was injected via a total of 33 mL of reconstituted solution. DESCRIPTION OF PROCEDURE: After informed consent was obtained, the patient was taken back to the operating room. He was transferred from the [facility] the [facility] to the operating room table, where general anesthesia was induced. He was placed in the dorsal lithotomy position and his genitalia were prepped and draped in a standard sterile fashion. He was also prepped around his existing suprapubic tube, which was then removed fully intact. I inserted a fresh 22-Gibraltarian silicone Hancock catheter into the patient's cystostomy tract. The tube was exchanged without difficulty. The patient was then prepped all the way completely in preparation for the Botox bladder injection. I then inserted a semi-rigid cystoscope using a 30-degree lens. A diagnostic cystoscopy was performed. Please see above findings. I advanced the [employer] needle into the patient's bladder and then protracted the needle to 4 mm. I then injected a total of 200 units of botulinum toxin into the patient's bladder today, namely the lateral allen and posterior wall of the bladder, avoiding the trigone area. The patient's bladder wall mucosa was friable, so I did experience some bleeding during the injection which did affect my visualization. The procedure was otherwise performed without incident. Once complete, I removed the cystoscope. His freshly exchange suprapubic tube had been capped in preparation for the Botox procedure. We uncapped the catheter and allowed it to drain completely. I then manually irrigated the patient's bladder via his existing suprapubic tube and manually irrigated without difficulty. We then connected the fresh suprapubic tube to a gravity drainage bag. The procedure was then terminated. The patient tolerated the procedure well without any complication. He will now be transferred to the postanesthesia care unit in stable condition. Electronically Signed By: CHEO HUTCHISON MD 06/08/22 192 PATIENT NAME: WILLY CASTILLO II OPERATIVE REPORT DATE OF : 70 REPORT #: [id number] PHYSICIAN: CHEO HUTCHISON MD PCP: [facility] REPORT IS CONFIDENTIAL AND NOT TO BE RELEASED WITHOUT AUTHORIZATION [facility] [address] [place] [id number] Signed DISPOSITION: I discussed the details of today's procedure with the patient's mother and answered all of her questions. He will finish out the rest of his doxycycline 100 mg p.o. b.i.d. He was given an additional five days of the medication today. He has been scheduled to see me in late July with followup to assess his response to the Botox injection. MD JARRELL Hoffman/ASHAL /[id number] Copies: ~ Electronically Signed By: CHEO HUTCHISON MD 06/08/22 1925 PATIENT NAME: WILLY CASTILLO II OPERATIVE REPORT DATE OF : 70 REPORT #: [id number] PHYSICIAN: CHEO HUTCHISON MD PCP: [facility] REPORT IS CONFIDENTIAL AND NOT TO BE RELEASED WITHOUT AUTHORIZATION
== END 2022-06-06 13:20 | disposition home or self-care (01) ==
LOC: DS 08:45 → OPS 08:45 → DS 10:45 → OPS 10:45
PROVIDERS: ATTEND Urology
PROC: 0T9B30Z Drainage of Bladder with Drainage Device, Percutaneous Approach (ICD-10-PCS; 2022-06-06)
PROC: 3E0K8GC Introduction of Other Therapeutic Substance into Genitourinary Tract, Via Natural or Artificial Opening Endoscopic (ICD-10-PCS; principal; 2022-06-06 10:45)
DX: N31.9 Neuromuscular dysfunction of bladder, unspecified (principal); N39.0 Urinary tract infection, site not specified; I10 Essential (primary) hypertension
CPT/HCPCS: 00910; J0585; J0696; J1100; J2250; J2405; J2704; J3010; J7121

== ENCOUNTER 2022-10-09 02:39 | Inpatient (IN) | payer MEDICARE, OTHER ==
[~2022-10-09] VITALS: Ht 177.8 cm; Wt 120.6 kg
[2022-10-09] VITALS (14 sets, daily range): BP systolic 116–171; BP diastolic 61–766
--- OUTSIDE RECORDS SUMMARY | ~2022-10-09 | XMS | Continuity of Care Document ---
Demographics + + + | Address | [id number] [place] [address] RD | | | [place] [address] | + + + | Preferred Language | Unknown | + + + | Marital Status | Never | + + + | Confucianism Affiliation | Unknown | + + + | Race | or | + + + | Ethnic Group | Not or | + + + Author + + + | Author | [facility] | + + + | Organization | [facility] | + + + | Address | [address] | | | [place] [address] | + + + | Phone | | + + + Care Team Providers + + + + | Care Special Systems Technician Name | Role | Phone | + + + + Unavailable | Unavailable | + + + + Unavailable | Unavailable | + + + + Unavailable | Unavailable | + + + + Unavailable | Unavailable | + + + + Unavailable | Unavailable | + + + + Allergies and Intolerances + + + + + + | date | description | facility | reaction | severity | + + + + + + | (no date) | Wasp venom | [facility] | (no reaction) | (no severity) | | | [facility] | | | + + + + + + | (no date) | venom-wasp | [facility] | (no reaction) | (no severity) | + + + + + + | (no date) | Wasp venom | [facility] | (no reaction) | (no severity) | | | | [facility] | | | + + + + + + Encounters No information. Functional Status No information. Immunizations + + + + | date | description | facility | + + + + | 2017-12-18 00:00 | Influenza, Seasonal, | [facility] | | | Injectable, Preservative | | | | Free | | + + + + | 2017-12-18 00:00 | Influenza, Seasonal, | [facility] | | | Injectable, Preservative | | | | Free | | + + + + | 2021-09-08 00:00 | Influenza, Injectable, | [facility] | | | Quadrivalent, Preservative | | + + + + | 2021-10-31 00:00 | Influenza, Injectable, | [facility] | | | Quadrivalent, Preservative | | + + + + | 2022-03-13 00:00 | Influenza, Injectable, | [facility] | | | Quadrivalent, Preservative | | + + + + | 2022-04-24 00:00 | Influenza, Injectable, | [facility] | | | Quadrivalent, Preservative | | + + + + | 2022-05-06 00:00 | Influenza, Injectable, | [facility] | | | Quadrivalent, Preservative | | + + + + | 2022-06-06 00:00 | Influenza, Injectable, | [facility] | | | Quadrivalent, Preservative | | + + + + | 2022-08-17 00:00 | Influenza, Injectable, | [facility] | | | Quadrivalent, Preservative | | + + + + | 2022-06-06 00:00 | Botulinum Antitoxin | [facility] | + + + + Medications + + + + | date | description | facility | + + + + | 2022-06-06 00:00 | DIAZEPAM | [facility] | + + + + | 2022-08-17 00:00 | DIAZEPAM | [facility] | + + + + | 2021-10-31 00:00 | POLYETHYLENE GLYCOL 3350 | [facility] | + + + + | 2021-10-31 00:00 | POLYETHYLENE GLYCOL 3350 | [facility] | + + + + | 2022-03-13 00:00 | POLYETHYLENE GLYCOL 3350 | [facility] | + + + + | 2020-11-13 00:00 | DIPHENOXYLATE HCL/ATROPINE | [facility] | | | | | + + + + | 2021-09-08 00:00 | DIPHENOXYLATE HCL/ATROPINE | [facility] | | | | | + + + + | 2021-10-31 00:00 | DIPHENOXYLATE HCL/ATROPINE | [facility] | | | | | + + + + | 2022-03-13 00:00 | DIPHENOXYLATE HCL/ATROPINE | [facility] | | | | | + + + + | 2022-04-24 00:00 | DIPHENOXYLATE HCL/ATROPINE | [facility] | | | | | + + + + | 2022-05-06 00:00 | DIPHENOXYLATE HCL/ATROPINE | [facility] | | | | | + + + + | 2022-06-06 00:00 | DIPHENOXYLATE HCL/ATROPINE | [facility] | | | | | + + + + | 2022-08-17 00:00 | DIPHENOXYLATE HCL/ATROPINE | [facility] | | | | | + + + + | 2021-10-31 00:00 | DIPHENOXYLATE HCL/ATROPINE | [facility] | | | | | + + + + | 2022-03-13 00:00 | DIPHENOXYLATE HCL/ATROPINE | [facility] | | | | | + + + + | 2022-04-24 00:00 | DIPHENOXYLATE HCL/ATROPINE | [facility] | | | | | + + + + | 2022-05-06 00:00 | DIPHENOXYLATE HCL/ATROPINE | [facility] | | | | | + + + + | 2022-06-06 00:00 | DIPHENOXYLATE HCL/ATROPINE | [facility] | | | | | + + + + | 2022-08-17 00:00 | DIPHENOXYLATE HCL/ATROPINE | [facility] | | | | | + + + + | 2021-09-08 00:00 | TIZANIDINE HCL | [facility] | + + + + | 2021-10-31 00:00 | TIZANIDINE HCL | [facility] | + + + + | 2022-03-13 00:00 | TIZANIDINE HCL | [facility] | + + + + | 2022-04-24 00:00 | TIZANIDINE HCL | [facility] | + + + + | 2022-05-06 00:00 | TIZANIDINE HCL | [facility] | + + + + | 2022-06-06 00:00 | TIZANIDINE HCL | [facility] | + + + + | 2022-08-17 00:00 | TIZANIDINE HCL | [facility] | + + + + | 2022-06-06 00:00 | DOXYCYCLINE HYCLATE | [facility] | + + + + | 2020-11-13 00:00 | BACLOFEN | [facility] | + + + + | 2021-09-08 00:00 | BACLOFEN | [facility] | + + + + | 2021-10-31 00:00 | BACLOFEN | [facility] | + + + + | 2022-03-13 00:00 | BACLOFEN | [facility] | + + + + | 2022-04-24 00:00 | BACLOFEN | [facility] | + + + + | 2022-05-06 00:00 | BACLOFEN | [facility] | + + + + | 2022-06-06 00:00 | BACLOFEN | [facility] | + + + + | 2022-08-17 00:00 | BACLOFEN | [facility] | + + + + | 2022-03-13 00:00 | BACLOFEN | [facility] | + + + + | 2022-04-24 00:00 | BACLOFEN | [facility] | + + + + | 2022-05-06 00:00 | BACLOFEN | [facility] | + + + + | 2022-06-06 00:00 | BACLOFEN | [facility] | + + + + | 2022-08-17 00:00 | BACLOFEN | [facility] | + + + + | 2022-04-24 00:00 | DIAZEPAM | [facility] | + + + + | 2022-04-24 00:00 | DIAZEPAM | [facility] | + + + + | 2021-09-08 00:00 | OMEPRAZOLE | [facility] | + + + + | 2021-10-31 00:00 | OMEPRAZOLE | [facility] | + + + + | 2022-03-13 00:00 | OMEPRAZOLE | [facility] | + + + + | 2022-04-24 00:00 | OMEPRAZOLE | [facility] | + + + + | 2022-05-06 00:00 | OMEPRAZOLE | [facility] | + + + + | 2022-06-06 00:00 | OMEPRAZOLE | [facility] | + + + + | 2022-08-17 00:00 | OMEPRAZOLE | [facility] | + + + + | 2021-09-08 00:00 | ACETAMINOPHEN | [facility] | + + + + | 2021-10-31 00:00 | ACETAMINOPHEN | [facility] | + + + + | 2022-03-13 00:00 | ACETAMINOPHEN | [facility] | + + + + | 2022-04-24 00:00 | ACETAMINOPHEN | [facility] | + + + + | 2022-05-06 00:00 | ACETAMINOPHEN | [facility] | + + + + | 2022-06-06 00:00 | ACETAMINOPHEN | [facility] | + + + + | 2022-08-17 00:00 | ACETAMINOPHEN | [facility] | + + + + | 2021-09-08 00:00 | BISACODYL | [facility] | + + + + | 2021-10-31 00:00 | BISACODYL | [facility] | + + + + | 2022-03-13 00:00 | BISACODYL | [facility] | + + + + | 2022-03-13 00:00 | BISACODYL | [facility] | + + + + | 2022-04-24 00:00 | BISACODYL | [facility] | + + + + | 2022-05-06 00:00 | BISACODYL | [facility] | + + + + | 2022-06-06 00:00 | BISACODYL | [facility] | + + + + | 2022-08-17 00:00 | BISACODYL | [facility] | + + + + | 2021-10-31 00:00 | SIMETHICONE | [facility] | + + + + | 2021-10-31 00:00 | SIMETHICONE | [facility] | + + + + | 2021-09-08 00:00 | CEPHALEXIN | [facility] | + + + + | 2021-10-31 00:00 | CEPHALEXIN | [facility] | + + + + | 2022-03-13 00:00 | CEPHALEXIN | [facility] | + + + + | 2022-04-24 00:00 | CEPHALEXIN | [facility] | + + + + | 2022-05-06 00:00 | CEPHALEXIN | [facility] | + + + + | 2022-06-06 00:00 | CEPHALEXIN | [facility] | + + + + | 2022-08-17 00:00 | CEPHALEXIN | [facility] | + + + + | 2021-10-31 00:00 | NYSTATIN | [facility] | + + + + | 2022-03-13 00:00 | NYSTATIN | [facility] | + + + + | 2022-04-24 00:00 | NYSTATIN | [facility] | + + + + | 2022-05-06 00:00 | NYSTATIN | [facility] | + + + + | 2022-06-06 00:00 | NYSTATIN | [facility] | + + + + | 2022-08-17 00:00 | NYSTATIN | [facility] | + + + + | 2021-09-08 00:00 | ASCORBIC ACID | [facility] | + + + + | 2021-10-31 00:00 | ASCORBIC ACID | [facility] | + + + + | 2022-03-13 00:00 | ASCORBIC ACID | [facility] | + + + + | 2022-04-24 00:00 | ASCORBIC ACID | [facility] | + + + + | 2022-05-06 00:00 | ASCORBIC ACID | [facility] | + + + + | 2022-06-06 00:00 | ASCORBIC ACID | [facility] | + + + + | 2022-08-17 00:00 | ASCORBIC ACID | [facility] | + + + + | 2022-03-13 00:00 | CEFPODOXIME PROXETIL | [facility] | + + + + | 2022-04-24 00:00 | CEPHALEXIN MONOHYDRATE | [facility] | + + + + | 2022-05-06 00:00 | CEPHALEXIN MONOHYDRATE | [facility] | + + + + | 2022-06-06 00:00 | CEPHALEXIN MONOHYDRATE | [facility] | + + + + | 2022-08-17 00:00 | CEPHALEXIN MONOHYDRATE | [facility] | + + + + | 2018-06-10 00:00 | CEPHALEXIN | [facility] | + + + + | 2018-06-10 00:00 | CEPHALEXIN | [facility] | + + + + | 2021-10-31 00:00 | CEPHALEXIN | [facility] | + + + + | 2021-07-05 00:00 | CIPROFLOXACIN HCL | [facility] | + + + + | 2021-07-05 00:00 | CIPROFLOXACIN HCL | [facility] | + + + + | 2021-09-08 00:00 | GABAPENTIN | [facility] | + + + + | 2021-10-31 00:00 | GABAPENTIN | [facility] | + + + + | 2022-03-13 00:00 | GABAPENTIN | [facility] | + + + + | 2022-04-24 00:00 | GABAPENTIN | [facility] | + + + + | 2022-05-06 00:00 | GABAPENTIN | [facility] | + + + + | 2022-06-06 00:00 | GABAPENTIN | [facility] | + + + + | 2022-08-17 00:00 | GABAPENTIN | [facility] | + + + + | 2020-11-13 00:00 | GABAPENTIN | [facility] | + + + + | 2021-09-08 00:00 | GABAPENTIN | [facility] | + + + + | 2021-10-31 00:00 | GABAPENTIN | [facility] | + + + + | 2022-03-13 00:00 | GABAPENTIN | [facility] | + + + + | 2022-04-24 00:00 | GABAPENTIN | [facility] | + + + + | 2022-05-06 00:00 | GABAPENTIN | [facility] | + + + + | 2022-06-06 00:00 | GABAPENTIN | [facility] | + + + + | 2022-08-17 00:00 | GABAPENTIN | [facility] | + + + + | 2019-11-20 00:00 | LEVOFLOXACIN | [facility] | + + + + | 2019-11-20 00:00 | LEVOFLOXACIN | [facility] | + + + + | 2021-09-08 00:00 | LORATADINE | [facility] | + + + + | 2021-10-31 00:00 | LORATADINE | [facility] | + + + + | 2022-03-13 00:00 | LORATADINE | [facility] | + + + + | 2022-04-24 00:00 | LORATADINE | [facility] | + + + + | 2022-05-06 00:00 | LORATADINE | [facility] | + + + + | 2022-06-06 00:00 | LORATADINE | [facility] | + + + + | 2022-08-17 00:00 | LORATADINE | [facility] | + + + + | 2021-10-31 00:00 | SENNOSIDES | [facility] | + + + + | 2021-10-31 00:00 | SENNOSIDES | [facility] | + + + + | 2022-03-13 00:00 | SENNOSIDES | [facility] | + + + + | 2022-03-13 00:00 | SENNOSIDES | [facility] | + + + + | 2021-09-08 00:00 | TIZANIDINE HCL | [facility] | + + + + | 2021-10-31 00:00 | TIZANIDINE HCL | [facility] | + + + + | 2022-03-13 00:00 | TIZANIDINE HCL | [facility] | + + + + | 2022-04-24 00:00 | TIZANIDINE HCL | [facility] | + + + + | 2022-05-06 00:00 | TIZANIDINE HCL | [facility] | + + + + | 2022-06-06 00:00 | TIZANIDINE HCL | [facility] | + + + + | 2022-08-17 00:00 | TIZANIDINE HCL | [facility] | + + + + | 2018-06-10 00:00 | METRONIDAZOLE | [facility] | + + + + | 2018-06-10 00:00 | METRONIDAZOLE | [facility] | + + + + | 2019-03-28 00:00 | NICOTINE POLACRILEX | [facility] | + + + + | 2019-03-28 00:00 | NICOTINE POLACRILEX | [facility] | + + + + | 2021-07-05 00:00 | NICOTINE POLACRILEX | [facility] | + + + + | 2021-07-05 00:00 | NICOTINE POLACRILEX | [facility] | + + + + | 2021-09-08 00:00 | Calcium Carbonate/Vitamin | [facility] | | | D3 | | + + + + | 2021-10-31 00:00 | Calcium Carbonate/Vitamin | [facility] | | | D3 | | + + + + | 2022-03-13 00:00 | Calcium Carbonate/Vitamin | [facility] | | | D3 | | + + + + | 2022-04-24 00:00 | Calcium Carbonate/Vitamin | [facility] | | | D3 | | + + + + | 2022-05-06 00:00 | Calcium Carbonate/Vitamin | [facility] | | | D3 | | + + + + | 2022-06-06 00:00 | Calcium Carbonate/Vitamin | [facility] | | | D3 | | + + + + | 2022-08-17 00:00 | Calcium Carbonate/Vitamin | [facility] | | | D3 | | + + + + | 2022-04-24 00:00 | LACTULOSE | [facility] | + + + + | 2022-04-24 00:00 | LACTULOSE | [facility] | + + + + | 2022-08-17 00:00 | ATORVASTATIN CALCIUM | [facility] | + + + + | 2021-09-08 00:00 | NYSTATIN | [facility] | + + + + | 2021-09-08 00:00 | WARFARIN SODIUM | [facility] | + + + + | 2021-10-31 00:00 | WARFARIN SODIUM | [facility] | + + + + | 2022-03-13 00:00 | WARFARIN SODIUM | [facility] | + + + + | 2022-04-24 00:00 | WARFARIN SODIUM | [facility] | + + + + | 2022-05-06 00:00 | WARFARIN SODIUM | [facility] | + + + + | 2022-06-06 00:00 | WARFARIN SODIUM | [facility] | + + + + | 2022-08-17 00:00 | WARFARIN SODIUM | [facility] | + + + + | 2021-09-08 00:00 | Diclofenac Sodium | [facility] | + + + + | 2021-10-31 00:00 | Diclofenac Sodium | [facility] | + + + + | 2022-03-13 00:00 | Diclofenac Sodium | [facility] | + + + + | 2022-04-24 00:00 | Diclofenac Sodium | [facility] | + + + + | 2022-05-06 00:00 | Diclofenac Sodium | [facility] | + + + + | 2022-06-06 00:00 | Diclofenac Sodium | [facility] | + + + + | 2022-08-17 00:00 | Diclofenac Sodium | [facility] | + + + + | 2021-09-08 00:00 | TRAZODONE HCL | [facility] | + + + + | 2021-10-31 00:00 | TRAZODONE HCL | [facility] | + + + + | 2022-03-13 00:00 | TRAZODONE HCL | [facility] | + + + + | 2022-04-24 00:00 | TRAZODONE HCL | [facility] | + + + + | 2022-05-06 00:00 | TRAZODONE HCL | [facility] | + + + + | 2022-06-06 00:00 | TRAZODONE HCL | [facility] | + + + + | 2022-08-17 00:00 | TRAZODONE HCL | [facility] | + + + + | 2020-11-13 00:00 | HYDROCODONE | [facility] | | | BIT/ACETAMINOPHEN | | + + + + | 2021-09-08 00:00 | HYDROCODONE | [facility] | | | BIT/ACETAMINOPHEN | | + + + + | 2021-10-31 00:00 | HYDROCODONE | [facility] | | | BIT/ACETAMINOPHEN | | + + + + | 2022-03-13 00:00 | HYDROCODONE | [facility] | | | BIT/ACETAMINOPHEN | | + + + + | 2022-04-24 00:00 | HYDROCODONE | [facility] | | | BIT/ACETAMINOPHEN | | + + + + | 2022-05-06 00:00 | HYDROCODONE | [facility] | | | BIT/ACETAMINOPHEN | | + + + + | 2022-06-06 00:00 | HYDROCODONE | [facility] | | | BIT/ACETAMINOPHEN | | + + + + | 2022-08-17 00:00 | HYDROCODONE | [facility] | | | BIT/ACETAMINOPHEN | | + + + + | 2022-03-13 00:00 | METFORMIN HCL | [facility] | + + + + | 2022-04-24 00:00 | METFORMIN HCL | [facility] | + + + + | 2022-05-06 00:00 | METFORMIN HCL | [facility] | + + + + | 2022-06-06 00:00 | METFORMIN HCL | [facility] | + + + + | 2022-08-17 00:00 | METFORMIN HCL | [facility] | + + + + | 2021-10-31 00:00 | METFORMIN HCL | [facility] | + + + + | 2021-07-05 00:00 | OXYBUTYNIN CHLORIDE | [facility] | + + + + | 2021-07-05 00:00 | OXYBUTYNIN CHLORIDE | [facility] | + + + + | 2022-04-24 00:00 | POLYETHYLENE GLYCOL 3350 | [facility] | + + + + | 2022-05-06 00:00 | POLYETHYLENE GLYCOL 3350 | [facility] | + + + + | 2022-06-06 00:00 | POLYETHYLENE GLYCOL 3350 | [facility] | + + + + | 2022-08-17 00:00 | POLYETHYLENE GLYCOL 3350 | [facility] | + + + + | 2021-09-08 00:00 | MORPHINE SULFATE | [facility] | + + + + | 2021-10-31 00:00 | MORPHINE SULFATE | [facility] | + + + + | 2022-03-13 00:00 | MORPHINE SULFATE | [facility] | + + + + | 2022-04-24 00:00 | MORPHINE SULFATE | [facility] | + + + + | 2022-05-06 00:00 | MORPHINE SULFATE | [facility] | + + + + | 2022-06-06 00:00 | MORPHINE SULFATE | [facility] | + + + + | 2022-08-17 00:00 | MORPHINE SULFATE | [facility] | + + + + | 2021-09-08 00:00 | MIDODRINE HCL | [facility] | + + + + | 2021-10-31 00:00 | MIDODRINE HCL | [facility] | + + + + | 2022-03-13 00:00 | MIDODRINE HCL | [facility] | + + + + | 2022-04-24 00:00 | MIDODRINE HCL | [facility] | + + + + | 2022-05-06 00:00 | MIDODRINE HCL | [facility] | + + + + | 2022-06-06 00:00 | MIDODRINE HCL | [facility] | + + + + | 2022-08-17 00:00 | MIDODRINE HCL | [facility] | + + + + | 2020-11-13 00:00 | MIDODRINE HCL | [facility] | + + + + Problems + + + + | date | description | facility | + + + + | 2015-09-22 00:00 | Dislodged Hancock catheter | [facility] | + + + + | 2015-09-22 00:00 | Dislodged Hancock catheter | [facility] | + + + + | 2017-12-18 00:00 | Suprapubic catheter | [facility] | | | dysfunction | | + + + + | 2017-12-18 00:00 | Suprapubic catheter | [facility] | | | dysfunction | | + + + + | 2018-08-06 00:00 | Fracture of distal end of | [facility] | | | femur | | + + + + | 2018-08-06 00:00 | Fracture of distal end of | [facility] | | | femur | | + + + + | 2019-03-24 00:00 | Problem with Hancock | [facility] | | | catheter | | + + + + | 2019-03-24 00:00 | Problem with Hancock | [facility] | | | catheter | | + + + + | 2019-03-26 00:00 | Autonomic dysreflexia | [facility] | + + + + | 2019-03-26 00:00 | Autonomic dysreflexia | [facility] | + + + + | 2019-03-26 00:00 | Congestive heart failure | [facility] | + + + + | 2019-03-26 00:00 | Congestive heart failure | [facility] | + + + + | 2019-03-26 00:00 | Complicated urinary tract | [facility] | | | infection | | + + + + | 2019-03-26 00:00 | Complicated urinary tract | [facility] | | | infection | | + + + + | 2019-06-07 00:00 | Encounter for medical | [facility] | | | screening examination | | + + + + | 2019-06-07 00:00 | Encounter for medical | [facility] | | | screening examination | | + + + + | 2019-09-23 00:00 | Obstruction of Hancock | [facility] | | | catheter | | + + + + | 2019-09-23 00:00 | Obstruction of Hancock | [facility] | | | catheter | | + + + + | 2019-10-14 00:00 | Pressure injury of skin | [facility] | + + + + | 2019-10-14 00:00 | Pressure injury of skin | [facility] | + + + + | 2019-10-14 00:00 | Muscle spasms of both | [facility] | | | lower extremities | | + + + + | 2019-10-14 00:00 | Muscle spasms of both | [facility] | | | lower extremities | | + + + + | 2020-07-13 23:20:07 | Cutaneous abscess of | [facility] | | | buttock | [facility] | + + + + | 2020-07-13 23:20:07 | 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, stage 4 | [facility] | + + + + | 2020-07-13 23:20:07 | Osteomyelitis, unspecified | [facility] | | | | [facility] | + + + + | 2020-07-13 23:20:07 | Personal history of other | [facility] | | | (healed) physical injury | [facility] | | | and trauma | | + + + + | 2020-10-07 00:00 | Urinary tract infection | [facility] | + + + + | 2020-10-07 00:00 | Urinary tract infection | [facility] | + + + + | 2020-10-07 00:30 | URINARY TRACT INFECTION, | [facility] | | | SITE NOT SPECIFIED | | + + + + | 2020-10-07 00:30 | RAEH COMPL OF OTHER | [facility] | | | URINARY CATHETER, INITIAL | | | | ENCOUNTER | | + + + + | 2020-10-07 00:30 | ASSISTED (CURRENT) USE OF | [facility] | | | ASPIRIN | | + + + + | 2020-10-07 00:30 | OTHER ASSISTED (CURRENT) | [facility] | | | DRUG THERAPY | | + + + + | 2020-10-07 00:30 | BEE ALLERGY STATUS | [facility] | + + + + | 2020-11-11 00:00 | Severe sepsis | [facility] | + + + + | 2020-11-11 00:00 | Severe sepsis | [facility] | + + + + | 2021-07-03 00:00 | Sepsis | [facility] | + + + + | 2021-07-03 00:00 | Sepsis | [facility] | + + + + | 2021-07-03 00:00 | Infection due to severe | [facility] | | | acute respiratory syndrome | | | | coronavirus 2 (SARS-CoV-2) | | + + + + | 2021-07-03 00:00 | Infection due to severe | [facility] | | | acute respiratory syndrome | | | | coronavirus 2 (SARS-CoV-2) | | + + + + | 2021-09-03 11:08 | AUTONOMIC DYSREFLEXIA | [facility] | + + + + | 2021-09-03 11:08 | ALTERED MENTAL STATUS, | [facility] | | | UNSPECIFIED | | + + + + | 2021-09-03 11:08 | MECH COMPL OF INDWELLING | [facility] | | | URETHRAL CATHETER, INIT | | + + + + | 2021-09-03 11:08 | UNSP MEDICAL DEVICES | [facility] | | | ASSOCIATED WITH ADVERSE | | | | INCID | | + + + + | 2021-09-03 11:08 | 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) | [facility] | | | DRUG THERAPY | | + + + + | 2021-09-03 11:08 | OTHER INSECT ALLERGY | [facility] | | | STATUS | | + + + + | 2021-09-03 11:08 | PRESENCE OF UROGENITAL | [facility] | | | IMPLANTS | | + + + + | 2021-10-29 00:00 | Hyperglycemia due to | [facility] [facility] | | | diabetes mellitus | | + + + + | 2021-10-29 00:00 | Hyperglycemia due to | [facility] | | | diabetes mellitus | | + + + + | 2021-10-29 01:33 | GRAM-NEGATIVE SEPSIS, | [facility] | | | UNSPECIFIED | | + + + + | 2021-10-29 01:33 | SEPSIS, UNSPECIFIED | [facility] | | | ORGANISM | | + + + + | 2021-10-29 01:33 | TYPE 2 DIABETES MELLITUS | [facility] | | | WITH HYPERGLYCEMIA | | + + + + | 2021-10-29 01:33 | QUADRIPLEGIA, UNSPECIFIED | [facility] | + + + + | 2021-10-29 01:33 | GASTRO-ESOPHAGEAL REFLUX | [facility] | | | DISEASE WITHOUT ESOPHAGIT | | + + + + | 2021-10-29 01:33 | CYSTITIS, UNSPECIFIED | [facility] | | | WITHOUT HEMATURIA | | + + + + | 2021-10-29 01:33 | NEUROMUSCULAR DYSFUNCTION | [facility] | | | OF BLADDER, UNSPECIFIED | | + + + + | 2021-10-29 01:33 | SEVERE SEPSIS WITHOUT | [facility] | | | SEPTIC SHOCK | | + + + + | 2021-10-29 01:33 | I/I REACT D/T INDWELLING | [facility] | | | URETHRAL CATHETER, INIT | | + + + + | 2021-10-29 01:33 | OTHER ASSISTED (CURRENT) | [facility] | | | DRUG THERAPY | | + + + + | 2021-10-29 01:33 | ALLERGY STATUS TO OTH | [facility] | | | DRUG/MEDS/BIOL SUBST STATUS | | | | | | + + + + | 2022-03-10 16:24 | SEPSIS DUE TO ANAEROBES | [facility] | + + + + | 2022-03-10 16:24 | SEPSIS, UNSPECIFIED | [facility] | | | ORGANISM | | + + + + | 2022-03-10 16:24 | PROTEUS (MIRABILIS) | [facility] | | | (MORGANII) CAUSING DIS | | | | CLASSD | | + + + + | 2022-03-10 16:24 | TYPE 2 DIABETES MELLITUS | [facility] | | | WITHOUT COMPLICATIONS | | + + + + | 2022-03-10 16:24 | ACIDOSIS, UNSPECIFIED | [facility] | + + + + | 2022-03-10 16:24 | QUADRIPLEGIA, UNSPECIFIED | [facility] | + + + + | 2022-03-10 16:24 | AUTONOMIC DYSREFLEXIA | [facility] | + + + + | 2022-03-10 16:24 | HYPOTENSION, UNSPECIFIED | [facility] | + + + + | 2022-03-10 16:24 | GASTRO-ESOPHAGEAL REFLUX | [facility] | | | DISEASE WITHOUT ESOPHAGIT | | + + + + | 2022-03-10 16:24 | NEUROGENIC BOWEL, NOT | [facility] | | | ELSEWHERE CLASSIFIED | | + + + + | 2022-03-10 16:24 | OTHER MUSCLE SPASM | [facility] | + + + + | 2022-03-10 16:24 | NEUROMUSCULAR DYSFUNCTION | [facility] | | | OF BLADDER, UNSPECIFIED | | + + + + | 2022-03-10 16:24 | I/I REACT D/T CYSTOSTOMY | [facility] | | | CATHETER, INITIAL ENCOUNT | | + + + + | 2022-03-10 16:24 | URINARY CATHETERIZATION | [facility] | | | CAUSE ABN REACT/COMPL, W/O | | + + + + | 2022-03-10 16:24 | ASSISTED (CURRENT) USE OF | [facility] | | | ORAL HYPOGLYCEMIC DRUGS | | + + + + | 2022-03-10 16:24 | OTHER ASSISTED (CURRENT) | [facility] | | | DRUG THERAPY | | + + + + | 2022-03-10 16:24 | BEE ALLERGY STATUS | [facility] | + + + + | 2022-03-10 16:24 | OTHER SPECIFIED | [facility] | | | POSTPROCEDURAL STATES | | + + + + | 2022-04-20 01:41 | SEPSIS, UNSPECIFIED | [facility] | | | ORGANISM | | + + + + | 2022-04-20 01:41 | TYPE 2 DIABETES MELLITUS | [facility] | | | WITHOUT COMPLICATIONS | | + + + + | 2022-04-20 01:41 | QUADRIPLEGIA, UNSPECIFIED | [facility] | + + + + | 2022-04-20 01:41 | AUTONOMIC DYSREFLEXIA | [facility] | + + + + | 2022-04-20 01:41 | CONSTIPATION, UNSPECIFIED | [facility] | + + + + | 2022-04-20 01:41 | CYSTITIS, UNSPECIFIED | [facility] | | | WITHOUT HEMATURIA | | + + + + | 2022-04-20 01:41 | SEVERE SEPSIS WITHOUT | [facility] | | | SEPTIC SHOCK | | + + + + | 2022-04-20 01:41 | I/I REACT D/T CYSTOSTOMY | [facility] | | | CATHETER, INITIAL ENCOUNT | | + + + + | 2022-04-20 01:41 | 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) | [facility] | | | DRUG THERAPY | | + + + + | 2022-04-20 01:41 | BEE ALLERGY STATUS | [facility] | + + + + | 2022-04-20 01:41 | OTHER SPECIFIED | [facility] | | | POSTPROCEDURAL STATES | | + + + + | 2022-04-24 18:06 | QUADRIPLEGIA, UNSPECIFIED | [facility] | + + + + | 2022-04-24 18:06 | CONSTIPATION, UNSPECIFIED | [facility] | + + + + | 2022-04-24 18:06 | CRAMP AND SPASM | [facility] | + + + + | 2022-04-24 18:06 | OTHER ASSISTED (CURRENT) | [facility] | | | DRUG THERAPY | | + + + + | 2022-04-24 18:06 | OTHER INSECT ALLERGY | [facility] | | | STATUS | | + + + + | 2022-05-06 09:45 | TYPE 2 DIABETES MELLITUS | [facility] | | | WITHOUT COMPLICATIONS | | + + + + | 2022-05-06 09:45 | POST-TRAUMATIC STRESS | [facility] | | | DISORDER, UNSPECIFIED | | + + + + | 2022-05-06 09:45 | PARAPLEGIA, UNSPECIFIED | [facility] | + + + + | 2022-05-06 09:45 | CONSTIPATION, UNSPECIFIED | [facility] | + + + + | 2022-05-06 09:45 | HEMORRHAGE OF ANUS AND | [facility] | | | RECTUM | | + + + + | 2022-05-06 09:45 | ENCOUNTER FOR SCREENING | [facility] | | | FOR MALIGNANT NE | | + + + + | 2022-06-01 14:59 | NEUROMUSCULAR DYSFUNCTION | [facility] | | | OF BLADDER, UNSPECIFIED | | + + + + | 2022-06-01 14:59 | ENCOUNTER FOR | [facility] | | | PREPROCEDURAL LABORATORY | | | | EXAMINATION | | + + + + | 2022-06-06 08:45 | Essential (primary) | [facility] | | | hypertension | | + + + + | 2022-06-06 08:45 | NEUROMUSCULAR DYSFUNCTION | [facility] | | | OF BLADDER, UNSPECIFIED | | + + + + | 2022-06-06 08:45 | URINARY TRACT INFECTION, | [facility] | | | SITE NOT SPECIFIED | | + + + + | 2022-08-17 00:00 | Recurrent urinary tract | [facility] | | | infection | | + + + + | 2022-08-17 00:00 | Presence of suprapubic | [facility] | | | catheter | | + + + + | 2022-08-17 13:18 | TYPE 2 DIABETES MELLITUS | [facility] | | | WITHOUT COMPLICATIONS | | + + + + | 2022-08-17 13:18 | URINARY TRACT INFECTION, | [facility] | | | SITE NOT SPECIFIED | | + + + + | 2022-08-17 13:18 | I/I REACT D/T OTHER | [facility] | | | URINARY CATHETER, INITIAL | | | | ENCO | | + + + + | 2022-08-17 13:18 | ASSISTED (CURRENT) USE OF | [facility] | | | ORAL HYPOGLYCEMIC DRUGS | | + + + + | 2022-08-17 13:18 | 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) | [facility] | | | DRUG THERAPY | | + + + + | 2022-08-17 13:18 | BEE ALLERGY STATUS | [facility] | + + + + | 2022-08-18 12:57 | URINARY TRACT INFECTION, | [facility] | | | SITE NOT SPECIFIED | | + + + + | 2022-08-19 12:57 | NEUROMUSCULAR DYSFUNCTION | [facility] | | | OF BLADDER, UNSPECIFIED | | + + + + | 2022-08-19 12:57 | URINARY TRACT INFECTION, | [facility] | | | SITE NOT SPECIFIED | | + + + + | 2022-08-20 12:49 | NEUROMUSCULAR DYSFUNCTION | [facility] | | | OF BLADDER, UNSPECIFIED | | + + + + | 2022-08-20 12:49 | URINARY TRACT INFECTION, | [facility] | | | SITE NOT SPECIFIED | | + + + + | 2022-08-20 12:49 | OTHER CYSTOSTOMY STATUS | [facility] | + + + + | 2022-08-21 12:46 | NEUROMUSCULAR DYSFUNCTION | [facility] | | | OF BLADDER, UNSPECIFIED | | + + + + | 2022-08-21 12:46 | URINARY TRACT INFECTION, | [facility] | | | SITE NOT SPECIFIED | | + + + + | 2022-08-21 12:46 | OTHER CYSTOSTOMY STATUS | [facility] | + + + + | 2022-08-22 12:54 | NEUROMUSCULAR DYSFUNCTION | [facility] | | | OF BLADDER, UNSPECIFIED | | + + + + | 2022-08-22 12:54 | URINARY TRACT INFECTION, | [facility] | | | SITE NOT SPECIFIED | | + + + + | 2022-08-23 12:52 | URINARY TRACT INFECTION, | [facility] | | | SITE NOT SPECIFIED | | + + + + | 2022-08-24 12:49 | URINARY TRACT INFECTION, | [facility] | | | SITE NOT SPECIFIED | | + + + + | 2022-10-03 07:30 | NEUROMUSCULAR DYSFUNCTION | [facility] | | | OF BLADDER, UN | | + + + + | 2022-10-03 07:30 | URINARY TRACT INFECTION, | [facility] | | | SITE NOT SPECIF | | + + + + Procedures + + + + | date | description | facility | + + + + | 2021-07-03 00:00 | INTRODUCE OF OT | [facility] | | | ANTI-INFECT INTO PERIPH | | | | VEIN, PERC APPROACH | | + + + + | 2022-04-20 00:00 | INTRODUCE OF OT | [facility] | | | ANTI-INFECT INTO PERIPH | | | | VEIN, PERC APPROACH | | + + + + | 2021-07-03 00:00 | ISOLATION | [facility] | + + + + Results/Labs +--------+--------+ +---------+--------+---------+ | test | date | facility | value | unit | notes | +--------+--------+ +---------+--------+---------+ + + | Result panel 1 | + + + + + + + + + | | 2021-07-03 | [facility] | POSITIVE | (missing) | (missing) | | (unavailable | 08:10 | [facility] | | | | + + + + + + + + + | Result panel 2 | + + + + + + + + + | | 2021-07-03 | [facility] | NEGATIVE | (missing) | (missing) | | (unavailable | 08:10 | [facility] | | | | + + + + + + + + + | Result panel 3 | + + + + + + + + + | | 2021-07-03 | [facility] | NEGATIVE | (missing) | (missing) | | (unavailable | 08:10 | [facility] | | | | + + + + + + + + + | Result panel 4 | + + + + + + + + + | | 2021-07-03 | [facility] | NEGATIVE | (missing) | (missing) | | (unavailable | 08:10 | [facility] | | | | + + + + + + + + + | Result panel 5 | + + + + + + + + + | | 2021-07-03 | [facility] | NEGATIVE | (missing) | (missing) | | (unavailable | 08:28 | [facility] | | | | + + + + + + + + + | Result panel 6 | + + + + + +---------+ + + | | 2021-07-03 | [facility] | TRACE | (missing) | (missing) | | (unavailable | 08:28 | [facility] | | | | + + + +---------+ + + + + | Result panel 7 | + + + + + +---------+ + + | | 2021-07-03 | [facility] | 1.020 | (missing) | (missing) | | (unavailable | 08:28 | [facility] | | | | + + + +---------+ + + + + | Result panel 8 | + + + + + +---------+ + + | | 2021-07-03 | [facility] | LARGE | (missing) | (missing) | | (unavailable | 08:28 | [facility] | | | | + + + +---------+ + + + + | Result panel 9 | + + + + + +-------+ + + | | 2021-07-03 | [facility] | 8.0 | (missing) | (missing) | | (unavailable | 08:28 | [facility] | | | | + + + +-------+ + + + + | Result panel 10 | + + + + + +------+ + + | | 2021-07-03 | [facility] | 30 | (missing) | (missing) | | (unavailable | 08:28 | [facility] | | | | + + + +------+ + + + + | Result panel 11 | + + + + + + + + + | | 2021-07-03 | [facility] | NORMAL | (missing) | (missing) | | (unavailable | 08:28 | [facility] | | | | + + + + + + + + + | Result panel 12 | + + + + + + + + + | | 2021-07-03 | [facility] | NEGATIVE | (missing) | (missing) | | (unavailable | 08:28 | [facility] | | | | + + + + + + + + + | Result panel 13 | + + + + + + + + + | | 2021-07-03 | [facility] | POSITVE | (missing) | (missing) | | (unavailable | 08:28 | [facility] | | | | + + + + + + + + + | Result panel 14 | + + + + + + + + + | | 2021-07-03 | [facility] | CLEAN CATCH | (missing) | (missing) | | (unavailable | 08:28 | [facility] | | | | + + + + + + + + + | Result panel 15 | + + + + + +--------+ + + | | 2021-09-03 | [facility] | 12.7 | (missing) | (missing) | | (unavailable | 11:20 | [facility] | | | | + + + +--------+ + + + + | Result panel 16 | + + + + + +--------+ + + | | 2021-09-03 | [facility] | 4.53 | (missing) | (missing) | | (unavailable | 11:20 | [facility] | | | | + + + +--------+ + + + + | Result panel 17 | + + + + + +--------+ + + | | 2021-09-03 | [facility] | 12.5 | (missing) | (missing) | | (unavailable | 11:20 | [facility] | | | | + + + +--------+ + + + + | Result panel 18 | + + + + + +--------+ + + | | 2021-09-03 | [facility] | 39.7 | (missing) | (missing) | | (unavailable | 11:20 | [facility] | | | | + + + +--------+ + + + + | Result panel 19 | + + + + + +--------+ + + | | 2021-09-03 | [facility] | 87.8 | (missing) | (missing) | | (unavailable | 11:20 | [facility] | | | | + + + +--------+ + + + + | Result panel 20 | + + + + + +--------+ + + | | 2021-09-03 | [facility] | 27.7 | (missing) | (missing) | | (unavailable | 11:20 | [facility] | | | | + + + +--------+ + + + + | Result panel 21 | + + + + + +--------+ + + | | 2021-09-03 | [facility] | 31.6 | (missing) | (missing) | | (unavailable | 11:20 | [facility] | | | | + + + +--------+ + + + + | Result panel 22 | + + + + + +--------+ + + | | 2021-09-03 | [facility] | 14.4 | (missing) | (missing) | | (unavailable | 11:20 | [facility] | | | | + + + +--------+ + + + + | Result panel 23 | + + + + + +-------+ + + | | 2021-09-03 | [facility] | 312 | (missing) | (missing) | | (unavailable | 11:20 | [facility] | | | | + + + +-------+ + + + + | Result panel 24 | + + + + + +--------+ + + | | 2021-09-03 | [facility] | 86.8 | (missing) | (missing) | | (unavailable | 11:20 | [facility] | | | | + + + +--------+ + + + + | Result panel 25 | + + + + + +-------+ + + | | 2021-09-03 | [facility] | 8.9 | (missing) | (missing) | | (unavailable | 11:20 | [facility] | | | | + + + +-------+ + + + + | Result panel 26 | + + + + + +-------+ + + | | 2021-09-03 | [facility] | 3.5 | (missing) | (missing) | | (unavailable | 11:20 | [facility] | | | | + + + +-------+ + + + + | Result panel 27 | + + + + + +-------+ + + | | 2021-09-03 | [facility] | 0.2 | (missing) | (missing) | | (unavailable | 11:20 | [facility] | | | | + + + +-------+ + + + + | Result panel 28 | + + + + + +-------+ + + | | 2021-09-03 | [facility] | 0.6 | (missing) | (missing) | | (unavailable | 11:20 | [facility] | | | | + + + +-------+ + + + + | Result panel 29 | + + + + + +-------+---------+ + | | 2021-09-03 | [facility] | 277 | mg/dL | (missing) | | (unavailable | 11:20 | [facility] | | | | + + + +-------+---------+ + + + | Result panel 30 | + + + + + +------+---------+ + | | 2021-09-03 | [facility] | 15 | mg/dL | (missing) | | (unavailable | 11:20 | [facility] | | | | + + + +------+---------+ + + + | Result panel 31 | + + + + + +--------+---------+ + | | 2021-09-03 | [facility] | 1.46 | mg/dL | (missing) | | (unavailable | 11:20 | [facility] | | | | + + + +--------+---------+ + + + | Result panel 32 | + + + + + +------+ + + | | 2021-09-03 | [facility] | 58 | (missing) | (missing) | | (unavailable | 11:20 | [facility] | | | | + + + +------+ + + + + | Result panel 33 | + + + + + +---------+ + + | | 2021-09-03 | [facility] | 10.27 | (missing) | (missing) | | (unavailable | 11:20 | [facility] | | | | + + + +---------+ + + + + | Result panel 34 | + + + + + +-------+ + + | | 2021-09-03 | [facility] | 142 | (missing) | (missing) | | (unavailable | 11:20 | [facility] | | | | + + + +-------+ + + + + | Result panel 35 | + + + + + +-------+ + + | | 2021-09-03 | [facility] | 4.1 | (missing) | (missing) | | (unavailable | 11:20 | [facility] | | | | + + + +-------+ + + + + | Result panel 36 | + + + + + +-------+ + + | | 2021-09-03 | [facility] | 104 | (missing) | (missing) | | (unavailable | 11:20 | [facility] | | | | + + + +-------+ + + + + | Result panel 37 | + + + + + +------+ + + | | 2021-09-03 | [facility] | 25 | (missing) | (missing) | | (unavailable | 11:20 | [facility] | | | | + + + +------+ + + + + | Result panel 38 | + + + + + +--------+ + + | | 2021-09-03 | [facility] | 17.1 | (missing) | (missing) | | (unavailable | 11:20 | [facility] | | | | + + + +--------+ + + + + | Result panel 39 | + + + + + +-------+---------+ + | | 2021-09-03 | [facility] | 9.1 | mg/dL | (missing) | | (unavailable | 11:20 | [facility] | | | | + + + +-------+---------+ + + + | Result panel 40 | + + + + + +-------+ + + | | 2021-09-03 | [facility] | 6.7 | (missing) | (missing) | | (unavailable | 11:20 | [facility] | | | | + + + +-------+ + + + + | Result panel 41 | + + + + + +-------+ + + | | 2021-09-03 | [facility] | 2.6 | (missing) | (missing) | | (unavailable | 11:20 | [facility] | | | | + + + +-------+ + + + + | Result panel 42 | + + + + + +-------+ + + | | 2021-09-03 | [facility] | 4.1 | (missing) | (missing) | | (unavailable | 11:20 | [facility] | | | | + + + +-------+ + + + + | Result panel 43 | + + + + + +--------+ + + | | 2021-09-03 | [facility] | 0.63 | (missing) | (missing) | | (unavailable | 11:20 | [facility] | | | | + + + +--------+ + + + + | Result panel 44 | + + + + + +-------+ + + | | 2021-09-03 | [facility] | 0.4 | (missing) | (missing) | | (unavailable | 11:20 | [facility] | | | | + + + +-------+ + + + + | Result panel 45 | + + + + + +------+ + + | | 2021-09-03 | [facility] | 15 | (missing) | (missing) | | (unavailable | 11:20 | [facility] | | | | + + + +------+ + + + + | Result panel 46 | + + + + + +------+ + + | | 2021-09-03 | [facility] | 30 | (missing) | (missing) | | (unavailable | 11:20 | [facility] | | | | + + + +------+ + + + + | Result panel 47 | + + + + + +------+ + + | | 2021-09-03 | [facility] | 90 | (missing) | (missing) | | (unavailable | 11:20 | [facility] | | | | + + + +------+ + + + + | Result panel 48 | + + + + + + + + + | | 2021-09-03 | [facility] | COLORLESS | (missing) | (missing) | | (unavailable | 13:10 | [facility] | | | | + + + + + + + + + | Result panel 49 | + + + + + + + + + | | 2021-09-03 | [facility] | TURBID | (missing) | (missing) | | (unavailable | 13:10 | [facility] | | | | + + + + + + + + + | Result panel 50 | + + + + + + + + + | | 2021-09-03 | [facility] | SEE COMMENT | (missing) | (missing) | | (unavailable | 13:10 | [facility] | | | | + + + + + + + + + | Result panel 51 | + + + + + +---------+ + + | | 2021-09-03 | [facility] | 21-40 | (missing) | (missing) | | (unavailable | 13:10 | [facility] | | | | + + + +---------+ + + + + | Result panel 52 | + + + + + +-------+ + + | | 2021-09-03 | [facility] | >50 | (missing) | (missing) | | (unavailable | 13:10 | [facility] | | | | + + + +-------+ + + + + | Result panel 53 | + + + + + + + + + | | 2021-09-03 | [facility] | NONE SEEN | (missing) | (missing) | | (unavailable | 13:10 | [facility] | | | | + + + + + + + + + | Result panel 54 | + + + + + + + + + | | 2021-09-03 | [facility] | NONE SEEN | (missing) | (missing) | | (unavailable | 13:10 | [facility] | | | | + + + + + + + + + | Result panel 55 | + + + + + +------+ + + | | 2021-09-03 | [facility] | 2+ | (missing) | (missing) | | (unavailable | 13:10 | [facility] | | | | + + + +------+ + + + + | Result panel 56 | + + + + + + + + + | | 2021-09-03 | [facility] | NONE SEEN | (missing) | (missing) | | (unavailable | 13:10 | [facility] | | | | + + + + + + + + + | Result panel 57 | + + + + + +-------+ + + | | 2021-09-03 | [facility] | Yes | (missing) | (missing) | | (unavailable | 13:10 | [facility] | | | | + + + +-------+ + + + + | Result panel 58 | + + + + + +-------+ + + | | 2021-09-03 | [facility] | 2.1 | (missing) | (missing) | | (unavailable | 13:53 | [facility] | | | | + + + +-------+ + + + + | Result panel 59 | + + + + + +-------+ + + | | 2021-10-28 | [facility] | 7.1 | (missing) | (missing) | | (unavailable | 22:49 | [facility] | | | | + + + +-------+ + + + + | Result panel 60 | + + + + + +-------+ + + | | 2021-10-28 | [facility] | 2.8 | (missing) | (missing) | | (unavailable | 22:49 | [facility] | | | | + + + +-------+ + + + + | Result panel 61 | + + + + + +-------+ + + | | 2021-10-28 | [facility] | 4.3 | (missing) | (missing) | | (unavailable | 22:49 | [facility] | | | | + + + +-------+ + + + + | Result panel 62 | + + + + + +--------+ + + | | 2021-10-28 | [facility] | 0.65 | (missing) | (missing) | | (unavailable | 22:49 | [facility] | | | | + + + +--------+ + + + + | Result panel 63 | + + + + + +-------+ + + | | 2021-10-28 | [facility] | 0.3 | (missing) | (missing) | | (unavailable | 22:49 | [facility] | | | | + + + +-------+ + + + + | Result panel 64 | + + + + + +------+ + + | | 2021-10-28 | [facility] | 24 | (missing) | (missing) | | (unavailable | 22:49 | [facility] | | | | + + + +------+ + + + + | Result panel 65 | + + + + + +------+ + + | | 2021-10-28 | [facility] | 27 | (missing) | (missing) | | (unavailable | 22:49 | [facility] | | | | + + + +------+ + + + + | Result panel 66 | + + + + + +------+ + + | | 2021-10-28 | [facility] | 86 | (missing) | (missing) | | (unavailable | 22:49 | [facility] | | | | + + + +------+ + + + + | Result panel 67 | + + + + + + + + + | | 2021-10-28 | [facility] | NEGATIVE | (missing) | (missing) | | (unavailable | 22:49 | [facility] | | | | + + + + + + + + + | Result panel 68 | + + + + + +-------+ + + | | 2021-10-28 | [facility] | 9.2 | (missing) | (missing) | | (unavailable | 22:49 | [facility] | | | | + + + +-------+ + + + + | Result panel 69 | + + + + + +--------+ + + | | 2021-10-29 | [facility] | 7.34 | (missing) | (missing) | | (unavailable | 00:15 | [facility] | | | | + + + +--------+ + + + + | Result panel 70 | + + + + + + + + + | | 2021-10-29 | [facility] | NEGATIVE | (missing) | (missing) | | (unavailable | 00:40 | [facility] | | | | + + + + + + + + + | Result panel 71 | + + + + + + + + + | | 2021-10-29 | [facility] | NEGATIVE | (missing) | (missing) | | (unavailable | 00:40 | [facility] | | | | + + + + + + + + + | Result panel 72 | + + + + + + + + + | | 2021-10-29 | [facility] | NEGATIVE | (missing) | (missing) | | (unavailable | 00:40 | [facility] | | | | + + + + + + + + + | Result panel 73 | + + + + + + + + + | | 2021-10-29 | [facility] | NEGATIVE | (missing) | (missing) | | (unavailable | 00:40 | [facility] | | | | + + + + + + + + + | Result panel 74 | + + + + + +-------+ + + | | 2021-10-29 | [facility] | 2.5 | (missing) | (missing) | | (unavailable | 01:55 | [facility] | | | | + + + +-------+ + + + + | Result panel 75 | + + + + + + + + + | | 2021-10-29 | [facility] | YELLOW | (missing) | (missing) | | (unavailable | 02:45 | [facility] | | | | + + + + + + + + + | Result panel 76 | + + + + + + + + + | | 2021-10-29 | [facility] | TURBID | (missing) | (missing) | | (unavailable | 02:45 | [facility] | | | | + + + + + + + + + | Result panel 77 | + + + + + + + + + | | 2021-10-29 | [facility] | MODERATE | (missing) | (missing) | | (unavailable | 02:45 | [facility] | | | | + + + + + + + + + | Result panel 78 | + + + + + + + + + | | 2021-10-29 | [facility] | NEGATIVE | (missing) | (missing) | | (unavailable | 02:45 | [facility] | | | | + + + + + + + + + | Result panel 79 | + + + + + + + + + | | 2021-10-29 | [facility] | NEGATIVE | (missing) | (missing) | | (unavailable | 02:45 | [facility] | | | | + + + + + + + + + | Result panel 80 | + + + + + +---------+ + + | | 2021-10-29 | [facility] | 1.015 | (missing) | (missing) | | (unavailable | 02:45 | [facility] | | | | + + + +---------+ + + + + | Result panel 81 | + + + + + +---------+ + + | | 2021-10-29 | [facility] | LARGE | (missing) | (missing) | | (unavailable | 02:45 | [facility] | | | | + + + +---------+ + + + + | Result panel 82 | + + + + + +-------+ + + | | 2021-10-29 | [facility] | 7.0 | (missing) | (missing) | | (unavailable | 02:45 | [facility] | | | | + + + +-------+ + + + + | Result panel 83 | + + + + + +------+ + + | | 2021-10-29 | [facility] | 30 | (missing) | (missing) | | (unavailable | 02:45 | [facility] | | | | + + + +------+ + + + + | Result panel 84 | + + + + + + + + + | | 2021-10-29 | [facility] | NORMAL | (missing) | (missing) | | (unavailable | 02:45 | [facility] | | | | + + + + + + + + + | Result panel 85 | + + + + + + + + + | | 2021-10-29 | [facility] | NEGATIVE | (missing) | (missing) | | (unavailable | 02:45 | [facility] | | | | + + + + + + + + + | Result panel 86 | + + + + + + + + + | | 2021-10-29 | [facility] | POSITVE | (missing) | (missing) | | (unavailable | 02:45 | [facility] | | | | + + + + + + + + + | Result panel 87 | + + + + + +--------+ + + | | 2021-10-29 | [facility] | 7-11 | (missing) | (missing) | | (unavailable | 02:45 | [facility] | | | | + + + +--------+ + + + + | Result panel 88 | + + + + + +-------+ + + | | 2021-10-29 | [facility] | >50 | (missing) | (missing) | | (unavailable | 02:45 | [facility] | | | | + + + +-------+ + + + + | Result panel 89 | + + + + + + + + + | | 2021-10-29 | [facility] | NONE SEEN | (missing) | (missing) | | (unavailable | 02:45 | [facility] | | | | + + + + + + + + + | Result panel 90 | + + + + + + + + + | | 2021-10-29 | [facility] | NONE SEEN | (missing) | (missing) | | (unavailable | 02:45 | [facility] | | | | + + + + + + + + + | Result panel 91 | + + + + + +--------+ + + | | 2021-10-29 | [facility] | RARE | (missing) | (missing) | | (unavailable | 02:45 | [facility] | | | | + + + +--------+ + + + + | Result panel 92 | + + + + + + + + + | | 2021-10-29 | [facility] | NONE SEEN | (missing) | (missing) | | (unavailable | 02:45 | [facility] | | | | + + + + + + + + + | Result panel 93 | + + + + + +-------+ + + | | 2021-10-29 | [facility] | Yes | (missing) | (missing) | | (unavailable | 02:45 | [facility] | | | | + + + +-------+ + + + + | Result panel 94 | + + + + + + + + + | | 2021-10-29 | [facility] | CLEAN CATCH | (missing) | (missing) | | (unavailable | 02:45 | [facility] | | | | + + + + + + + + + | Result panel 95 | + + + + + +--------+ + + | | 2021-10-30 | [facility] | 11.1 | (missing) | (missing) | | (unavailable | 05:38 | [facility] | | | | + + + +--------+ + + + + | Result panel 96 | + + + + + +--------+ + + | | 2021-10-30 | [facility] | 4.56 | (missing) | (missing) | | (unavailable | 05:38 | [facility] | | | | + + + +--------+ + + + + | Result panel 97 | + + + + + +--------+ + + | | 2021-10-30 | [facility] | 12.8 | (missing) | (missing) | | (unavailable | 05:38 | [facility] | | | | + + + +--------+ + + + + | Result panel 98 | + + + + + +--------+ + + | | 2021-10-30 | [facility] | 39.0 | (missing) | (missing) | | (unavailable | 05:38 | [facility] | | | | + + + +--------+ + + + + | Result panel 99 | + + + + + +--------+ + + | | 2021-10-30 | [facility] | 85.5 | (missing) | (missing) | | (unavailable | 05:38 | [facility] | | | | + + + +--------+ + + + + | Result panel 100 | + + + + + +--------+ + + | | 2021-10-30 | [facility] | 28.0 | (missing) | (missing) | | (unavailable | 05:38 | [facility] | | | | + + + +--------+ + + + + | Result panel 101 | + + + + + +--------+ + + | | 2021-10-30 | [facility] | 32.8 | (missing) | (missing) | | (unavailable | 05:38 | [facility] | | | | + + + +--------+ + + + + | Result panel 102 | + + + + + +--------+ + + | | 2021-10-30 | [facility] | 13.9 | (missing) | (missing) | | (unavailable | 05:38 | [facility] | | | | + + + +--------+ + + + + | Result panel 103 | + + + + + +-------+ + + | | 2021-10-30 | [facility] | 241 | (missing) | (missing) | | (unavailable | 05:38 | [facility] | | | | + + + +-------+ + + + + | Result panel 104 | + + + + + +--------+ + + | | 2021-10-30 | [facility] | 62.5 | (missing) | (missing) | | (unavailable | 05:38 | [facility] | | | | + + + +--------+ + + + + | Result panel 105 | + + + + + +--------+ + + | | 2021-10-30 | [facility] | 24.8 | (missing) | (missing) | | (unavailable | 05:38 | [facility] | | | | + + + +--------+ + + + + | Result panel 106 | + + + + + +-------+ + + | | 2021-10-30 | [facility] | 5.9 | (missing) | (missing) | | (unavailable | 05:38 | [facility] | | | | + + + +-------+ + + + + | Result panel 107 | + + + + + +-------+ + + | | 2021-10-30 | [facility] | 4.0 | (missing) | (missing) | | (unavailable | 05:38 | [facility] | | | | + + + +-------+ + + + + | Result panel 108 | + + + + + +-------+ + + | | 2021-10-30 | [facility] | 2.8 | (missing) | (missing) | | (unavailable | 05:38 | [facility] | | | | + + + +-------+ + + + + | Result panel 109 | + + + + + +-------+---------+ + | | 2021-10-30 | [facility] | 211 | mg/dL | (missing) | | (unavailable | 05:38 | [facility] | | | | + + + +-------+---------+ + + + | Result panel 110 | + + + + + +-----+---------+ + | | 2021-10-30 | [facility] | 9 | mg/dL | (missing) | | (unavailable | 05:38 | [facility] | | | | + + + +-----+---------+ + + + | Result panel 111 | + + + + + +--------+---------+ + | | 2021-10-30 | [facility] | 0.79 | mg/dL | (missing) | | (unavailable | 05:38 | [facility] | | | | + + + +--------+---------+ + + + | Result panel 112 | + + + + + +-------+ + + | | 2021-10-30 | [facility] | 108 | (missing) | (missing) | | (unavailable | 05:38 | [facility] | | | | + + + +-------+ + + + + | Result panel 113 | + + + + + +---------+ + + | | 2021-10-30 | [facility] | 11.39 | (missing) | (missing) | | (unavailable | 05:38 | [facility] | | | | + + + +---------+ + + + + | Result panel 114 | + + + + + +-------+ + + | | 2021-10-30 | [facility] | 140 | (missing) | (missing) | | (unavailable | 05:38 | [facility] | | | | + + + +-------+ + + + + | Result panel 115 | + + + + + +-------+ + + | | 2021-10-30 | [facility] | 3.8 | (missing) | (missing) | | (unavailable | 05:38 | [facility] | | | | + + + +-------+ + + + + | Result panel 116 | + + + + + +-------+ + + | | 2021-10-30 | [facility] | 103 | (missing) | (missing) | | (unavailable | 05:38 | [facility] | | | | + + + +-------+ + + + + | Result panel 117 | + + + + + +------+ + + | | 2021-10-30 | [facility] | 29 | (missing) | (missing) | | (unavailable | 05:38 | [facility] | | | | + + + +------+ + + + + | Result panel 118 | + + + + + +--------+ + + | | 2021-10-30 | [facility] | 11.8 | (missing) | (missing) | | (unavailable | 05:38 | [facility] | | | | + + + +--------+ + + + + | Result panel 119 | + + + + + +-------+---------+ + | | 2021-10-30 | [facility] | 8.5 | mg/dL | (missing) | | (unavailable | 05:38 | [facility] | | | | + + + +-------+---------+ + + + | Result panel 120 | + + + + + +-------+ + + | | 2021-10-31 | [facility] | 219 | (missing) | (missing) | | (unavailable | 11:32 | [facility] | | | | + + + +-------+ + + + + | Result panel 121 | + + + + + +--------+ + + | | 2022-03-10 | [facility] | 13.5 | (missing) | (missing) | | (unavailable | 12:56:08 | [facility] | | | | + + + +--------+ + + + + | Result panel 122 | + + + + + +--------+ + + | | 2022-03-10 | [facility] | 1.08 | (missing) | (missing) | | (unavailable | 12:56:08 | [facility] | | | | + + + +--------+ + + + + | Result panel 123 | + + + + + +--------+ + + | | 2022-03-10 | [facility] | 29.3 | (missing) | (missing) | | (unavailable | 12:56:08 | [facility] | | | | + + + +--------+ + + + + | Result panel 124 | + + + + + +-------+ + + | | 2022-03-10 | [facility] | 7.8 | (missing) | (missing) | | (unavailable | 12:56:08 | [facility] | | | | + + + +-------+ + + + + | Result panel 125 | + + + + + +-------+ + + | | 2022-03-10 | [facility] | 3.6 | (missing) | (missing) | | (unavailable | 12:56:08 | [facility] | | | | + + + +-------+ + + + + | Result panel 126 | + + + + + +-------+ + + | | 2022-03-10 | [facility] | 4.2 | (missing) | (missing) | | (unavailable | 12:56:08 | [facility] | | | | + + + +-------+ + + + + | Result panel 127 | + + + + + +--------+ + + | | 2022-03-10 | [facility] | 0.86 | (missing) | (missing) | | (unavailable | 12:56:08 | [facility] | | | | + + + +--------+ + + + + | Result panel 128 | + + + + + +-------+ + + | | 2022-03-10 | [facility] | 0.4 | (missing) | (missing) | | (unavailable | 12:56:08 | [facility] | | | | + + + +-------+ + + + + | Result panel 129 | + + + + + +------+ + + | | 2022-03-10 | [facility] | 25 | (missing) | (missing) | | (unavailable | 12:56:08 | [facility] | | | | + + + +------+ + + + + | Result panel 130 | + + + + + +------+ + + | | 2022-03-10 | [facility] | 25 | (missing) | (missing) | | (unavailable | 12:56:08 | [facility] | | | | + + + +------+ + + + + | Result panel 131 | + + + + + +------+ + + | | 2022-03-10 | [facility] | 79 | (missing) | (missing) | | (unavailable | 12:56:08 | [facility] | | | | + + + +------+ + + + + | Result panel 132 | + + + + + + + + + | | 2022-03-10 | [facility] | YELLOW | (missing) | (missing) | | (unavailable | 13:10:08 | [facility] | | | | + + + + + + + + + | Result panel 133 | + + + + + + + + + | | 2022-03-10 | [facility] | SL CLOUDY | (missing) | (missing) | | (unavailable | 13:10:08 | [facility] | | | | + + + + + + + + + | Result panel 134 | + + + + + + + + + | | 2022-03-10 | [facility] | NEGATIVE | (missing) | (missing) | | (unavailable | 13:10:08 | [facility] | | | | + + + + + + + + + | Result panel 135 | + + + + + + + + + | | 2022-03-10 | [facility] | NEGATIVE | (missing) | (missing) | | (unavailable | 13:10:08 | [facility] | | | | + + + + + + + + + | Result panel 136 | + + + + + +---------+ + + | | 2022-03-10 | [facility] | SMALL | (missing) | (missing) | | (unavailable | 13:10:08 | [facility] | | | | + + + +---------+ + + + + | Result panel 137 | + + + + + + + + + | | 2022-03-10 | [facility] | >=1.030 | (missing) | (missing) | | (unavailable | 13:10:08 | [facility] | | | | + + + + + + + + + | Result panel 138 | + + + + + +---------+ + + | | 2022-03-10 | [facility] | LARGE | (missing) | (missing) | | (unavailable | 13:10:08 | [facility] | | | | + + + +---------+ + + + + | Result panel 139 | + + + + + +-------+ + + | | 2022-03-10 | [facility] | 5.0 | (missing) | (missing) | | (unavailable | 13:10:08 | [facility] | | | | + + + +-------+ + + + + | Result panel 140 | + + + + + +-------+ + + | | 2022-03-10 | [facility] | 100 | (missing) | (missing) | | (unavailable | 13:10:08 | [facility] | | | | + + + +-------+ + + + + | Result panel 141 | + + + + + + + + + | | 2022-03-10 | [facility] | NORMAL | (missing) | (missing) | | (unavailable | 13:10:08 | [facility] | | | | + + + + + + + + + | Result panel 142 | + + + + + + + + + | | 2022-03-10 | [facility] | NEGATIVE | (missing) | (missing) | | (unavailable | 13:10:08 | [facility] | | | | + + + + + + + + + | Result panel 143 | + + + + + +---------+ + + | | 2022-03-10 | [facility] | SMALL | (missing) | (missing) | | (unavailable | 13:10:08 | [facility] | | | | + + + +---------+ + + + + | Result panel 144 | + + + + + +---------+ + + | | 2022-03-10 | [facility] | 12-20 | (missing) | (missing) | | (unavailable | 13:10:08 | [facility] | | | | + + + +---------+ + + + + | Result panel 145 | + + + + + +-------+ + + | | 2022-03-10 | [facility] | >50 | (missing) | (missing) | | (unavailable | 13:10:08 | [facility] | | | | + + + +-------+ + + + + | Result panel 146 | + + + + + + + + + | | 2022-03-10 | [facility] | SQUAMOUS 1+ | (missing) | (missing) | | (unavailable | 13:10:08 | [facility] | | | | + + + + + + + + + | Result panel 147 | + + + + + +------+ + + | | 2022-03-10 | [facility] | 2+ | (missing) | (missing) | | (unavailable | 13:10:08 | [facility] | | | | + + + +------+ + + + + | Result panel 148 | + + + + + + + + + | | 2022-03-10 | [facility] | HYALINE 1+ | (missing) | (missing) | | (unavailable | 13:10:08 | [facility] | | | | + + + + + + + + + | Result panel 149 | + + + + + +-------+ + + | | 2022-03-10 | [facility] | Yes | (missing) | (missing) | | (unavailable | 13:10:08 | [facility] | | | | + + + +-------+ + + + + | Result panel 150 | + + + + + + + + + | | 2022-03-10 | [facility] | NEGATIVE | (missing) | (missing) | | (unavailable | 13:17:08 | [facility] | | | | + + + + + + + + + | Result panel 151 | + + + + + + + + + | | 2022-03-10 | [facility] | NEGATIVE | (missing) | (missing) | | (unavailable | 13:17:08 | [facility] | | | | + + + + + + + + + | Result panel 152 | + + + + + + + + + | | 2022-03-10 | [facility] | NEGATIVE | (missing) | (missing) | | (unavailable | 13::08 | [facility] | | | | + + + + + + + + + | Result panel 153 | + + + + + + + + + | | 2022-03-10 | [facility] | NEGATIVE | (missing) | (missing) | | (unavailable | 13:17:08 | [facility] | | | | + + + + + + + + + | Result panel 154 | + + + + + +------+ + + | | 2022-03-11 | [facility] | 81 | (missing) | (missing) | | (unavailable | 07:48:08 | [facility] | | | | + + + +------+ + + + + | Result panel 155 | + + + + + +------+ + + | | 2022-03-11 | [facility] | 10 | (missing) | (missing) | | (unavailable | 07:48:08 | [facility] | | | | + + + +------+ + + + + | Result panel 156 | + + + + + +-----+ + + | | 2022-03-11 | [facility] | 8 | (missing) | (missing) | | (unavailable | 07:48:08 | [facility] | | | | + + + +-----+ + + + + | Result panel 157 | + + + + + +-----+ + + | | 2022-03-11 | [facility] | 1 | (missing) | (missing) | | (unavailable | 07:48:08 | [facility] | | | | + + + +-----+ + + + + | Result panel 158 | + + + + + +-------+---------+ + | | 2022-03-11 | [facility] | 102 | mg/dL | (missing) | | (unavailable | 07:48:08 | [facility] | | | | + + + +-------+---------+ + + + | Result panel 159 | + + + + + +------+---------+ + | | 2022-03-11 | [facility] | 10 | mg/dL | (missing) | | (unavailable | 07:48:08 | [facility] | | | | + + + +------+---------+ + + + | Result panel 160 | + + + + + +--------+---------+ + | | 2022-03-11 | [facility] | 0.99 | mg/dL | (missing) | | (unavailable | 07:48:08 | [facility] | | | | + + + +--------+---------+ + + + | Result panel 161 | + + + + + +------+ + + | | 2022-03-11 | [facility] | 92 | (missing) | (missing) | | (unavailable | 07:48:08 | [facility] | | | | + + + +------+ + + + + | Result panel 162 | + + + + + +---------+ + + | | 2022-03-11 | [facility] | 10.10 | (missing) | (missing) | | (unavailable | 07:48:08 | [facility] | | | | + + + +---------+ + + + + | Result panel 163 | + + + + + +-------+ + + | | 2022-03-11 | [facility] | 136 | (missing) | (missing) | | (unavailable | 07:48:08 | [facility] | | | | + + + +-------+ + + + + | Result panel 164 | + + + + + +-------+ + + | | 2022-03-11 | [facility] | 4.7 | (missing) | (missing) | | (unavailable | 07:48:08 | [facility] | | | | + + + +-------+ + + + + | Result panel 165 | + + + + + +------+ + + | | 2022-03-11 | [facility] | 99 | (missing) | (missing) | | (unavailable | 07:48:08 | [facility] | | | | + + + +------+ + + + + | Result panel 166 | + + + + + +------+ + + | | 2022-03-11 | [facility] | 24 | (missing) | (missing) | | (unavailable | 07:48:08 | [facility] | | | | + + + +------+ + + + + | Result panel 167 | + + + + + +--------+ + + | | 2022-03-11 | [facility] | 17.7 | (missing) | (missing) | | (unavailable | 07:48:08 | [facility] | | | | + + + +--------+ + + + + | Result panel 168 | + + + + + +-------+---------+ + | | 2022-03-11 | [facility] | 8.7 | mg/dL | (missing) | | (unavailable | 07:48:08 | [facility] | | | | + + + +-------+---------+ + + + | Result panel 169 | + + + + + +-------+ + + | | 2022-03-11 | [facility] | 4.6 | (missing) | (missing) | | (unavailable | 07:48:08 | [facility] | | | | + + + +-------+ + + + + | Result panel 170 | + + + + + +-------+ + + | | 2022-03-12 | [facility] | 7.2 | (missing) | (missing) | | (unavailable | 07:01:08 | [facility] | | | | + + + +-------+ + + + + | Result panel 171 | + + + + + +--------+ + + | | 2022-03-12 | [facility] | 4.54 | (missing) | (missing) | | (unavailable | 07:01:08 | [facility] | | | | + + + +--------+ + + + + | Result panel 172 | + + + + + +--------+ + + | | 2022-03-12 | [facility] | 12.4 | (missing) | (missing) | | (unavailable | 07:01:08 | [facility] | | | | + + + +--------+ + + + + | Result panel 173 | + + + + + +--------+ + + | | 2022-03-12 | [facility] | 39.0 | (missing) | (missing) | | (unavailable | 07:01:08 | [facility] | | | | + + + +--------+ + + + + | Result panel 174 | + + + + + +--------+ + + | | 2022-03-12 | [facility] | 85.7 | (missing) | (missing) | | (unavailable | 07:01:08 | [facility] | | | | + + + +--------+ + + + + | Result panel 175 | + + + + + +--------+ + + | | 2022-03-12 | [facility] | 27.4 | (missing) | (missing) | | (unavailable | 07::08 | [facility] | | | | + + + +--------+ + + + + | Result panel 176 | + + + + + +--------+ + + | | 2022-03-12 | [facility] | 31.9 | (missing) | (missing) | | (unavailable | 07::08 | [facility] | | | | + + + +--------+ + + + + | Result panel 177 | + + + + + +--------+ + + | | 2022-03-12 | [facility] | 14.6 | (missing) | (missing) | | (unavailable | 07:01:08 | [facility] | | | | + + + +--------+ + + + + | Result panel 178 | + + + + + +-------+ + + | | 2022-03-12 | [facility] | 227 | (missing) | (missing) | | (unavailable | 07:01:08 | [facility] | | | | + + + +-------+ + + + + | Result panel 179 | + + + + + +--------+ + + | | 2022-03-12 | [facility] | 64.8 | (missing) | (missing) | | (unavailable | 07:01:08 | [facility] | | | | + + + +--------+ + + + + | Result panel 180 | + + + + + +--------+ + + | | 2022-03-12 | [facility] | 20.6 | (missing) | (missing) | | (unavailable | 07:01:08 | [facility] | | | | + + + +--------+ + + + + | Result panel 181 | + + + + + +-------+ + + | | 2022-03-12 | [facility] | 7.1 | (missing) | (missing) | | (unavailable | 07:01:08 | [facility] | | | | + + + +-------+ + + + + | Result panel 182 | + + + + + +-------+ + + | | 2022-03-12 | [facility] | 6.5 | (missing) | (missing) | | (unavailable | 07:01:08 | [facility] | | | | + + + +-------+ + + + + | Result panel 183 | + + + + + +-------+ + + | | 2022-03-12 | [facility] | 1.0 | (missing) | (missing) | | (unavailable | 07:01:08 | [facility] | | | | + + + +-------+ + + + + | Result panel 184 | + + + + + +-------+ + + | | 2022-03-13 | [facility] | 132 | (missing) | (missing) | | (unavailable | 11:47:08 | [facility] | | | | + + + +-------+ + + + + | Result panel 185 | + + + + + + + + + | | 2022-04-19 | [facility] | NEGATIVE | (missing) | (missing) | | (unavailable | 22:45:08 | [facility] | | | | + + + + + + + + + | Result panel 186 | + + + + + + + + + | | 2022-04-19 | [facility] | NEGATIVE | (missing) | (missing) | | (unavailable | 22:45:08 | [facility] | | | | + + + + + + + + + | Result panel 187 | + + + + + + + + + | | 2022-04-19 | [facility] | NEGATIVE | (missing) | (missing) | | (unavailable | 22:45:08 | [facility] | | | | + + + + + + + + + | Result panel 188 | + + + + + + + + + | | 2022-04-19 | [facility] | NEGATIVE | (missing) | (missing) | | (unavailable | 22:45:08 | [facility] | | | | + + + + + + + + + | Result panel 189 | + + + + + + + + + | | 2022-04-19 | [facility] | NEGATIVE | (missing) | (missing) | | (unavailable | 22:45:08 | [facility] | | | | + + + + + + + + + | Result panel 190 | + + + + + + + + + | | 2022-04-19 | [facility] | NEGATIVE | (missing) | (missing) | | (unavailable | 22:45:08 | [facility] | | | | + + + + + + + + + | Result panel 191 | + + + + + + + + + | | 2022-04-19 | [facility] | NEGATIVE | (missing) | (missing) | | (unavailable | 22:45:08 | [facility] | | | | + + + + + + + + + | Result panel 192 | + + + + + + + + + | | 2022-04-19 | [facility] | NEGATIVE | (missing) | (missing) | | (unavailable | 22:45:08 | [facility] | | | | + + + + + + + + + | Result panel 193 | + + + + + + + + + | | 2022-04-19 | [facility] | NEGATIVE | (missing) | (missing) | | (unavailable | 22:45:08 | [facility] | | | | + + + + + + + + + | Result panel 194 | + + + + + + + + + | | 2022-04-19 | [facility] | NEGATIVE | (missing) | (missing) | | (unavailable | 22:45:08 | [facility] | | | | + + + + + + + + + | Result panel 195 | + + + + + + + + + | | 2022-04-19 | [facility] | NEGATIVE | (missing) | (missing) | | (unavailable | 22:45:08 | [facility] | | [facility] | | | | + + + + + + + + + | Result panel 196 | + + + + + + + + + | | 2022-04-19 | [facility] | NEGATIVE | (missing) | (missing) | | (unavailable | 22:45:08 | [facility] | [facility] | | | | + + + + + + + + + | Result panel 197 | + + + + + +---------+ + + | | 2022-04-19 | [facility] | 21-40 | (missing) | (missing) | | (unavailable | 23:36:08 | [facility] | | | | + + + +---------+ + + + + | Result panel 198 | + + + + + +-------+ + + | | 2022-04-19 | [facility] | 4-6 | (missing) | (missing) | | (unavailable | 23:36:08 | [facility] | | | | + + + +-------+ + + + + | Result panel 199 | + + + + + + + + + | | 2022-04-19 | [facility] | SQUAMOUS 1+ | (missing) | (missing) | | (unavailable | 23:36:08 | [facility] | | | | + + + + + + + + + | Result panel 200 | + + + + + + + + + | | 2022-04-19 | [facility] | NONE SEEN | (missing) | (missing) | | (unavailable | 23:36:08 | [facility] | | | | + + + + + + + + + | Result panel 201 | + + + + + +--------+ + + | | 2022-04-19 | [facility] | RARE | (missing) | (missing) | | (unavailable | 23:36:08 | [facility] | | | | + + + +--------+ + + + + | Result panel 202 | + + + + + + + + + | | 2022-04-19 | [facility] | HYALINE 2+ | (missing) | (missing) | | (unavailable | 23:36:08 | [facility] | | | | + + + + + + + + + | Result panel 203 | + + + + + +------+ + + | | 2022-04-19 | [facility] | No | (missing) | (missing) | | (unavailable | 23:36:08 | [facility] | | | | + + + +------+ + + + + | Result panel 204 | + + + + + + + + + | | 2022-04-19 | [facility] | CLEAN CATCH | (missing) | (missing) | | (unavailable | 23:36:08 | [facility] | | | | + + + + + + + + + | Result panel 205 | + + + + + + + + + | | 2022-04-19 | [facility] | YELLOW | (missing) | (missing) | | (unavailable | 23:36:08 | [facility] | | | | + + + + + + + + + | Result panel 206 | + + + + + + + + + | | 2022-04-19 | [facility] | SL CLOUDY | (missing) | (missing) | | (unavailable | 23:36:08 | [facility] | | | | + + + + + + + + + | Result panel 207 | + + + + + + + + + | | 2022-04-19 | [facility] | NEGATIVE | (missing) | (missing) | | (unavailable | 23:36:08 | [facility] | | | | + + + + + + + + + | Result panel 208 | + + + + + + + + + | | 2022-04-19 | [facility] | NEGATIVE | (missing) | (missing) | | (unavailable | 23:36:08 | [facility] | | | | + + + + + + + + + | Result panel 209 | + + + + + +---------+ + + | | 2022-04-19 | [facility] | SMALL | (missing) | (missing) | | (unavailable | 23:36:08 | [facility] | | | | + + + +---------+ + + + + | Result panel 210 | + + + + + +---------+ + + | | 2022-04-19 | [facility] | 1.020 | (missing) | (missing) | | (unavailable | 23:36:08 | [facility] | | [facility] | | | | + + + +---------+ + + + + | Result panel 211 | + + + + + +---------+ + + | | 2022-04-19 | [facility] | LARGE | (missing) | (missing) | | (unavailable | 23:36:08 | [facility] | | | | + + + +---------+ + + + + | Result panel 212 | + + + + + +-------+ + + | | 2022-04-19 | [facility] | 6.0 | (missing) | (missing) | | (unavailable | 23:36:08 | [facility] | | | | + + + +-------+ + + + + | Result panel 213 | + + + + + +-------+ + + | | 2022-04-19 | [facility] | 100 | (missing) | (missing) | | (unavailable | 23:36:08 | [facility] | | | | + + + +-------+ + + + + | Result panel 214 | + + + + + + + + + | | 2022-04-19 | [facility] | NORMAL | (missing) | (missing) | | (unavailable | 23:36:08 | [facility] | | | | + + + + + + + + + | Result panel 215 | + + + + + + + + + | | 2022-04-19 | [facility] | NEGATIVE | (missing) | (missing) | | (unavailable | 23:36:08 | [facility] | | | | + + + + + + + + + | Result panel 216 | + + + + + +---------+ + + | | 2022-04-19 | [facility] | TRACE | (missing) | (missing) | | (unavailable | 23:36:08 | [facility] | | | | + + + +---------+ + + + + | Result panel 217 | + + + + + +---------+ + + | | 2022-04-19 | [facility] | 21-40 | (missing) | (missing) | | (unavailable | 23:36:08 | [facility] | | | | + + + +---------+ + + + + | Result panel 218 | + + + + + +-------+ + + | | 2022-04-19 | [facility] | 4-6 | (missing) | (missing) | | (unavailable | 23:36:08 | [facility] | | | | + + + +-------+ + + + + | Result panel 219 | + + + + + + + + + | | 2022-04-19 | [facility] | SQUAMOUS 1+ | (missing) | (missing) | | (unavailable | 23:36:08 | [facility] | | | | + + + + + + + + + | Result panel 220 | + + + + + + + + + | | 2022-04-19 | [facility] | NONE SEEN | (missing) | (missing) | | (unavailable | 23:36:08 | [facility] | | | | + + + + + + + + + | Result panel 221 | + + + + + +--------+ + + | | 2022-04-19 | [facility] | RARE | (missing) | (missing) | | (unavailable | 23:36:08 | [facility] | | | | + + + +--------+ + + + + | Result panel 222 | + + + + + + + + + | | 2022-04-19 | [facility] | HYALINE 2+ | (missing) | (missing) | | (unavailable | 23:36:08 | [facility] | | | | + + + + + + + + + | Result panel 223 | + + + + + +------+ + + | | 2022-04-19 | [facility] | No | (missing) | (missing) | | (unavailable | 23:36:08 | [facility] | | | | + + + +------+ + + + + | Result panel 224 | + + + + + + + + + | | 2022-04-19 | [facility] | CLEAN CATCH | (missing) | (missing) | | (unavailable | 23:36:08 | [facility] | | | | + + + + + + + + + | Result panel 225 | + + + + + +---------+ + + | | 2022-04-19 | [facility] | 21-40 | (missing) | (missing) | | (unavailable | 23:36:08 | [facility] | | | | + + + +---------+ + + + + | Result panel 226 | + + + + + +-------+ + + | | 2022-04-19 | [facility] | 4-6 | (missing) | (missing) | | (unavailable | 23:36:08 | [facility] | | | | + + + +-------+ + + + + | Result panel 227 | + + + + + + + + + | | 2022-04-19 | [facility] | SQUAMOUS 1+ | (missing) | (missing) | | (unavailable | 23:36:08 | [facility] | | | | + + + + + + + + + | Result panel 228 | + + + + + + + + + | | 2022-04-19 | [facility] | NONE SEEN | (missing) | (missing) | | (unavailable | 23:36:08 | [facility] | | | | + + + + + + + + + | Result panel 229 | + + + + + +--------+ + + | | 2022-04-19 | [facility] | RARE | (missing) | (missing) | | (unavailable | 23:36:08 | [facility] | | | | + + + +--------+ + + + + | Result panel 230 | + + + + + + + + + | | 2022-04-19 | [facility] | HYALINE 2+ | (missing) | (missing) | | (unavailable | 23:36:08 | [facility] | | | | + + + + + + + + + | Result panel 231 | + + + + + +------+ + + | | 2022-04-19 | [facility] | No | (missing) | (missing) | | (unavailable | 23:36:08 | [facility] | | | | + + + +------+ + + + + | Result panel 232 | + + + + + + + + + | | 2022-04-19 | [facility] | CLEAN CATCH | (missing) | (missing) | | (unavailable | 23:36:08 | [facility] | | | | + + + + + + + + + | Result panel 233 | + + + + + +--------+ + + | | 2022-04-20 | [facility] | 13.9 | (missing) | (missing) | | (unavailable | 01:17:08 | [facility] | | | | + + + +--------+ + + + + | Result panel 234 | + + + + + +--------+ + + | | 2022-04-20 | [facility] | 1.11 | (missing) | (missing) | | (unavailable | 01:17:08 | [facility] | | | | + + + +--------+ + + + + | Result panel 235 | + + + + + +--------+ + + | | 2022-04-20 | [facility] | 29.2 | (missing) | (missing) | | (unavailable | 01:17:08 | [facility] | | | | + + + +--------+ + + + + | Result panel 236 | + + + + + +--------+ + + | | 2022-04-20 | [facility] | 13.9 | (missing) | (missing) | | (unavailable | 01:17:08 | [facility] | | | | + + + +--------+ + + + + | Result panel 237 | + + + + + +--------+ + + | | 2022-04-20 | [facility] | 1.11 | (missing) | (missing) | | (unavailable | 01:17:08 | [facility] | | | | + + + +--------+ + + + + | Result panel 238 | + + + + + +--------+ + + | | 2022-04-20 | [facility] | 29.2 | (missing) | (missing) | | (unavailable | 01:17:08 | [facility] | | | | + + + +--------+ + + + + | Result panel 239 | + + + + + +--------+ + + | | 2022-04-20 | [facility] | 13.9 | (missing) | (missing) | | (unavailable | 01:17:08 | [facility] | | | | + + + +--------+ + + + + | Result panel 240 | + + + + + +--------+ + + | | 2022-04-20 | [facility] | 1.11 | (missing) | (missing) | | (unavailable | 01:17:08 | [facility] | | | | + + + +--------+ + + + + | Result panel 241 | + + + + + +--------+ + + | | 2022-04-20 | [facility] | 29.2 | (missing) | (missing) | | (unavailable | 01:17:08 | [facility] | | | | + + + +--------+ + + + + | Result panel 242 | + + + + + +-------+ + + | | 2022-04-20 | [facility] | 1.4 | (missing) | (missing) | | (unavailable | 06:02:08 | [facility] | | | | + + + +-------+ + + + + | Result panel 243 | + + + + + +-------+---------+ + | | 2022-04-21 | [facility] | 2.7 | mg/dL | (missing) | | (unavailable | 05:20:08 | [facility] | | | | + + + +-------+---------+ + + + | Result panel 244 | + + + + + +-------+---------+ + | | 2022-04-21 | [facility] | 2.0 | mg/dL | (missing) | | (unavailable | 05:20:08 | [facility] | | | | + + + +-------+---------+ + + + | Result panel 245 | + + + + + +-------+ + + | | 2022-04-21 | [facility] | 6.5 | (missing) | (missing) | | (unavailable | 05:20:08 | [facility] | | | | + + + +-------+ + + + + | Result panel 246 | + + + + + +--------+ + + | | 2022-04-21 | [facility] | 4.63 | (missing) | (missing) | | (unavailable | 05:20:08 | [facility] | | | | + + + +--------+ + + + + | Result panel 247 | + + + + + +--------+ + + | | 2022-04-21 | [facility] | 12.6 | (missing) | (missing) | | (unavailable | 05:20:08 | [facility] | | | | + + + +--------+ + + + + | Result panel 248 | + + + + + +--------+ + + | | 2022-04-21 | [facility] | 39.7 | (missing) | (missing) | | (unavailable | 05:20:08 | [facility] | | | | + + + +--------+ + + + + | Result panel 249 | + + + + + +--------+ + + | | 2022-04-21 | [facility] | 85.9 | (missing) | (missing) | | (unavailable | 05:20:08 | [facility] | | | | + + + +--------+ + + + + | Result panel 250 | + + + + + +--------+ + + | | 2022-04-21 | [facility] | 27.1 | (missing) | (missing) | | (unavailable | 05:20:08 | [facility] | | | | + + + +--------+ + + + + | Result panel 251 | + + + + + +--------+ + + | | 2022-04-21 | [facility] | 31.6 | (missing) | (missing) | | (unavailable | 05:20:08 | [facility] | | | | + + + +--------+ + + + + | Result panel 252 | + + + + + +--------+ + + | | 2022-04-21 | [facility] | 14.7 | (missing) | (missing) | | (unavailable | 05:20:08 | [facility] | | | | + + + +--------+ + + + + | Result panel 253 | + + + + + +-------+ + + | | 2022-04-21 | [facility] | 245 | (missing) | (missing) | | (unavailable | 05:20:08 | [facility] | | | | + + + +-------+ + + + + | Result panel 254 | + + + + + +--------+ + + | | 2022-04-21 | [facility] | 60.3 | (missing) | (missing) | | (unavailable | 05:20:08 | [facility] | | | | + + + +--------+ + + + + | Result panel 255 | + + + + + +--------+ + + | | 2022-04-21 | [facility] | 23.1 | (missing) | (missing) | | (unavailable | 05:20:08 | [facility] | | | | + + + +--------+ + + + + | Result panel 256 | + + + + + +-------+ + + | | 2022-04-21 | [facility] | 9.0 | (missing) | (missing) | | (unavailable | 05:20:08 | [facility] | | | | + + + +-------+ + + + + | Result panel 257 | + + + + + +-------+ + + | | 2022-04-21 | [facility] | 6.4 | (missing) | (missing) | | (unavailable | 05:20:08 | [facility] | | | | + + + +-------+ + + + + | Result panel 258 | + + + + + +-------+ + + | | 2022-04-21 | [facility] | 1.2 | (missing) | (missing) | | (unavailable | 05:20:08 | [facility] | | | | + + + +-------+ + + + + | Result panel 259 | + + + + + +-------+---------+ + | | 2022-04-21 | [facility] | 129 | mg/dL | (missing) | | (unavailable | 05:20:08 | [facility] | | | | + + + +-------+---------+ + + + | Result panel 260 | + + + + + +-----+---------+ + | | 2022-04-21 | [facility] | 8 | mg/dL | (missing) | | (unavailable | 05:20:08 | [facility] | | | | + + + +-----+---------+ + + + | Result panel 261 | + + + + + +--------+---------+ + | | 2022-04-21 | [facility] | 0.72 | mg/dL | (missing) | | (unavailable | 05:20:08 | [facility] | | | | + + + +--------+---------+ + + + | Result panel 262 | + + + + + +-------+ + + | | 2022-04-21 | [facility] | 111 | (missing) | (missing) | | (unavailable | 05:20:08 | [facility] | | | | + + + +-------+ + + + + | Result panel 263 | + + + + + +---------+ + + | | 2022-04-21 | [facility] | 11.11 | (missing) | (missing) | | (unavailable | 05:20:08 | [facility] | | | | + + + +---------+ + + + + | Result panel 264 | + + + + + +-------+ + + | | 2022-04-21 | [facility] | 143 | (missing) | (missing) | | (unavailable | 05:20:08 | [facility] | | | | + + + +-------+ + + + + | Result panel 265 | + + + + + +-------+ + + | | 2022-04-21 | [facility] | 4.0 | (missing) | (missing) | | (unavailable | 05:20:08 | [facility] | | | | + + + +-------+ + + + + | Result panel 266 | + + + + + +-------+ + + | | 2022-04-21 | [facility] | 107 | (missing) | (missing) | | (unavailable | 05:20:08 | [facility] | | | | + + + +-------+ + + + + | Result panel 267 | + + + + + +------+ + + | | 2022-04-21 | [facility] | 28 | (missing) | (missing) | | (unavailable | 05:20:08 | [facility] | | | | + + + +------+ + + + + | Result panel 268 | + + + + + +--------+ + + | | 2022-04-21 | [facility] | 12.0 | (missing) | (missing) | | (unavailable | 05:20:08 | [facility] | | | | + + + +--------+ + + + + | Result panel 269 | + + + + + +-------+---------+ + | | 2022-04-21 | [facility] | 8.3 | mg/dL | (missing) | | (unavailable | 05:20:08 | [facility] | | | | + + + +-------+---------+ + + + | Result panel 270 | + + + + + +-------+---------+ + | | 2022-04-21 | [facility] | 2.7 | mg/dL | (missing) | | (unavailable | 05:20:08 | [facility] | | | | + + + +-------+---------+ + + + | Result panel 271 | + + + + + +-------+---------+ + | | 2022-04-21 | [facility] | 2.0 | mg/dL | (missing) | | (unavailable | 05:20:08 | [facility] | | | | + + + +-------+---------+ + + + | Result panel 272 | + + + + + +-------+ + + | | 2022-04-21 | [facility] | 6.9 | (missing) | (missing) | | (unavailable | 05:20:08 | [facility] | | | | + + + +-------+ + + + + | Result panel 273 | + + + + + +-------+ + + | | 2022-04-21 | [facility] | 3.0 | (missing) | (missing) | | (unavailable | 05:20:08 | [facility] | | | | + + + +-------+ + + + + | Result panel 274 | + + + + + +-------+ + + | | 2022-04-21 | [facility] | 3.9 | (missing) | (missing) | | (unavailable | 05:20:08 | [facility] | | | | + + + +-------+ + + + + | Result panel 275 | + + + + + +--------+ + + | | 2022-04-21 | [facility] | 0.77 | (missing) | (missing) | | (unavailable | 05:20:08 | [facility] | | | | + + + +--------+ + + + + | Result panel 276 | + + + + + +-------+ + + | | 2022-04-21 | [facility] | 0.3 | (missing) | (missing) | | (unavailable | 05:20:08 | [facility] | | | | + + + +-------+ + + + + | Result panel 277 | + + + + + +------+ + + | | 2022-04-21 | [facility] | 37 | (missing) | (missing) | | (unavailable | 05:20:08 | [facility] | | | | + + + +------+ + + + + | Result panel 278 | + + + + + +------+ + + | | 2022-04-21 | [facility] | 24 | (missing) | (missing) | | (unavailable | 05:20:08 | [facility] | | | | + + + +------+ + + + + | Result panel 279 | + + + + + +------+ + + | | 2022-04-21 | [facility] | 73 | (missing) | (missing) | | (unavailable | 05:20:08 | [facility] | | | | + + + +------+ + + + + | Result panel 280 | + + + + + +-------+---------+ + | | 2022-04-21 | [facility] | 2.7 | mg/dL | (missing) | | (unavailable | 05:20:08 | [facility] | | | | + + + +-------+---------+ + + + | Result panel 281 | + + + + + +-------+---------+ + | | 2022-04-21 | [facility] | 2.0 | mg/dL | (missing) | | (unavailable | 05:20:08 | [facility] | | | | + + + +-------+---------+ + + + | Result panel 282 | + + + + + +-------+ + + | | 2022-04-24 | [facility] | 118 | (missing) | (missing) | | (unavailable | 11:42:08 | [facility] | | | | + + + +-------+ + + + + | Result panel 283 | + + + + + +-------+ + + | | 2022-04-24 | [facility] | 118 | (missing) | (missing) | | (unavailable | 11:42:08 | [facility] | | | | + + + +-------+ + + + + | Result panel 284 | + + + + + +--------+ + + | | 2022-04-24 | [facility] | 10.5 | (missing) | (missing) | | (unavailable | 18:30:08 | [facility] | | | | + + + +--------+ + + + + | Result panel 285 | + + + + + +--------+ + + | | 2022-04-24 | [facility] | 4.65 | (missing) | (missing) | | (unavailable | 18:30:08 | [facility] | | | | + + + +--------+ + + + + | Result panel 286 | + + + + + +--------+ + + | | 2022-04-24 | [facility] | 12.6 | (missing) | (missing) | | (unavailable | 18:30:08 | [facility] | | | | + + + +--------+ + + + + | Result panel 287 | + + + + + +--------+ + + | | 2022-04-24 | [facility] | 40.1 | (missing) | (missing) | | (unavailable | 18:30:08 | [facility] | | | | + + + +--------+ + + + + | Result panel 288 | + + + + + +--------+ + + | | 2022-04-24 | [facility] | 86.3 | (missing) | (missing) | | (unavailable | 18:30:08 | [facility] | | | | + + + +--------+ + + + + | Result panel 289 | + + + + + +--------+ + + | | 2022-04-24 | [facility] | 27.1 | (missing) | (missing) | | (unavailable | 18:30:08 | [facility] | | | | + + + +--------+ + + + + | Result panel 290 | + + + + + +--------+ + + | | 2022-04-24 | [facility] | 31.4 | (missing) | (missing) | | (unavailable | 18:30:08 | [facility] | | | | + + + +--------+ + + + + | Result panel 291 | + + + + + +--------+ + + | | 2022-04-24 | [facility] | 14.7 | (missing) | (missing) | | (unavailable | 18:30:08 | [facility] | | | | + + + +--------+ + + + + | Result panel 292 | + + + + + +-------+ + + | | 2022-04-24 | [facility] | 250 | (missing) | (missing) | | (unavailable | 18:30:08 | [facility] | | | | + + + +-------+ + + + + | Result panel 293 | + + + + + +--------+ + + | | 2022-04-24 | [facility] | 79.6 | (missing) | (missing) | | (unavailable | 18:30:08 | [facility] | | | | + + + +--------+ + + + + | Result panel 294 | + + + + + +--------+ + + | | 2022-04-24 | [facility] | 11.8 | (missing) | (missing) | | (unavailable | 18:30:08 | [facility] | | | | + + + +--------+ + + + + | Result panel 295 | + + + + + +-------+ + + | | 2022-04-24 | [facility] | 5.6 | (missing) | (missing) | | (unavailable | 18:30:08 [facility] | | | | + + + +-------+ + + + + | Result panel 296 | + + + + + +-------+ + + | | 2022-04-24 | [facility] | 2.0 | (missing) | (missing) | | (unavailable | 18:30:08 | [facility] | | | | + + + +-------+ + + + + | Result panel 297 | + + + + + +-------+ + + | | 2022-04-24 | [facility] | 1.0 | (missing) | (missing) | | (unavailable | 18:30:08 | [facility] | | | | + + + +-------+ + + + + | Result panel 298 | + + + + + +-------+---------+ + | | 2022-04-24 | [facility] | 122 | mg/dL | (missing) | | (unavailable | 18:30:08 [facility] | | | | + + + +-------+---------+ + + + | Result panel 299 | + + + + + +-----+---------+ + | | 2022-04-24 | [facility] | 9 | mg/dL | (missing) | | (unavailable | 18:30:08 [facility] | | | | + + + +-----+---------+ + + + | Result panel 300 | + + + + + +--------+---------+ + | | 2022-04-24 | [facility] | 1.12 | mg/dL | (missing) | | (unavailable | 18:30:08 [facility] | | | | + + + +--------+---------+ + + + | Result panel 301 | + + + + + +------+ + + | | 2022-04-24 | [facility] | 80 | (missing) | (missing) | | (unavailable | 18:30:08 [facility] | | | | + + + +------+ + + + + | Result panel 302 | + + + + + +--------+ + + | | 2022-04-24 | [facility] | 8.03 | (missing) | (missing) | | (unavailable | 18:30:08 [facility] | | | | + + + +--------+ + + + + | Result panel 303 | + + + + + +-------+ + + | | 2022-04-24 | [facility] | 141 | (missing) | (missing) | | (unavailable | 18:30:08 [facility] | | | | + + + +-------+ + + + + | Result panel 304 | + + + + + +-------+ + + | | 2022-04-24 | [facility] | 4.4 | (missing) | (missing) | | (unavailable | 18:30:08 [facility] | | | | + + + +-------+ + + + + | Result panel 305 | + + + + + +-------+ + + | | 2022-04-24 | [facility] | 103 | (missing) | (missing) | | (unavailable | 18:30:08 [facility] | | | | + + + +-------+ + + + + | Result panel 306 | + + + + + +------+ + + | | 2022-04-24 | [facility] | 24 | (missing) | (missing) | | (unavailable | 18:30:08 [facility] | | | | + + + +------+ + + + + | Result panel 307 | + + + + + +--------+ + + | | 2022-04-24 | [facility] | 18.4 | (missing) | (missing) | | (unavailable | 18:30:08 [facility] | | | | + + + +--------+ + + + + | Result panel 308 | + + + + + +-------+---------+ + | | 2022-04-24 | [facility] | 8.8 | mg/dL | (missing) | | (unavailable | 18:30:08 [facility] | | | | + + + +-------+---------+ + + + | Result panel 309 | + + + + + +-------+ + + | | 2022-04-24 | [facility] | 7.2 | (missing) | (missing) | | (unavailable | 18:30:08 [facility] | | | | + + + +-------+ + + + + | Result panel 310 | + + + + + +-------+ + + | | 2022-04-24 | [facility] | 3.1 | (missing) | (missing) | | (unavailable | 18:30:08 [facility] | | | | + + + +-------+ + + + + | Result panel 311 | + + + + + +-------+ + + | | 2022-04-24 | [facility] | 4.1 | (missing) | (missing) | | (unavailable | 18:30:08 [facility] | | | | + + + +-------+ + + + + | Result panel 312 | + + + + + +--------+ + + | | 2022-04-24 | [facility] | 0.76 | (missing) | (missing) | | (unavailable | 18:30:08 [facility] | | | | + + + +--------+ + + + + | Result panel 313 | + + + + + +-------+ + + | | 2022-04-24 | [facility] | 0.3 | (missing) | (missing) | | (unavailable | 18:30:08 [facility] | | | | + + + +-------+ + + + + | Result panel 314 | + + + + + +------+ + + | | 2022-04-24 | [facility] | 27 | (missing) | (missing) | | (unavailable | 18:30:08 [facility] | | | | + + + +------+ + + + + | Result panel 315 | + + + + + +------+ + + | | 2022-04-24 | [facility] | 31 | (missing) | (missing) | | (unavailable | 18:30:08 [facility] | | | | + + + +------+ + + + + | Result panel 316 | + + + + + +------+ + + | | 2022-04-24 | [facility] | 71 | (missing) | (missing) | | (unavailable | 18:30:08 | [facility] | | | | + + + +------+ + + + + | Result panel 317 | + + + + + +--------+ + + | | 2022-04-24 | [facility] | 10.5 | (missing) | (missing) | | (unavailable | 18:30:08 | [facility] | | | | + + + +--------+ + + + + | Result panel 318 | + + + + + +--------+ + + | | 2022-04-24 | [facility] | 4.65 | (missing) | (missing) | | (unavailable | 18:30:08 | [facility] | | | | + + + +--------+ + + + + | Result panel 319 | + + + + + +--------+ + + | | 2022-04-24 | [facility] | 12.6 | (missing) | (missing) | | (unavailable | 18:30:08 | [facility] | | | | + + + +--------+ + + + + | Result panel 320 | + + + + + +--------+ + + | | 2022-04-24 | [facility] | 40.1 | (missing) | (missing) | | (unavailable | 18:30:08 | [facility] | | | | + + + +--------+ + + + + | Result panel 321 | + + + + + +--------+ + + | | 2022-04-24 | [facility] | 86.3 | (missing) | (missing) | | (unavailable | 18:30:08 | [facility] | | | | + + + +--------+ + + + + | Result panel 322 | + + + + + +--------+ + + | | 2022-04-24 | [facility] | 27.1 | (missing) | (missing) | | (unavailable | 18:30:08 | [facility] | | | | + + + +--------+ + + + + | Result panel 323 | + + + + + +--------+ + + | | 2022-04-24 | [facility] | 31.4 | (missing) | (missing) | | (unavailable | 18:30:08 | [facility] | | | | + + + +--------+ + + + + | Result panel 324 | + + + + + +--------+ + + | | 2022-04-24 | [facility] | 14.7 | (missing) | (missing) | | (unavailable | 18:30:08 | [facility] | | | | + + + +--------+ + + + + | Result panel 325 | + + + + + +-------+ + + | | 2022-04-24 | [facility] | 250 | (missing) | (missing) | | (unavailable | 18:30:08 | [facility] | | | | + + + +-------+ + + + + | Result panel 326 | + + + + + +--------+ + + | | 2022-04-24 | [facility] | 79.6 | (missing) | (missing) | | (unavailable | 18:30:08 | [facility] | | | | + + + +--------+ + + + + | Result panel 327 | + + + + + +--------+ + + | | 2022-04-24 | [facility] | 11.8 | (missing) | (missing) | | (unavailable | 18:30:08 | [facility] | | | | + + + +--------+ + + + + | Result panel 328 | + + + + + +-------+ + + | | 2022-04-24 | [facility] | 5.6 | (missing) | (missing) | | (unavailable | 18:30:08 | [facility] | | | | + + + +-------+ + + + + | Result panel 329 | + + + + + +-------+ + + | | 2022-04-24 | [facility] | 2.0 | (missing) | (missing) | | (unavailable | 18:30:08 | [facility] | | | | + + + +-------+ + + + + | Result panel 330 | + + + + + +-------+ + + | | 2022-04-24 | [facility] | 1.0 | (missing) | (missing) | | (unavailable | 18:30:08 | [facility] | | | | + + + +-------+ + + + + | Result panel 331 | + + + + + +-------+---------+ + | | 2022-04-24 | [facility] | 122 | mg/dL | (missing) | | (unavailable | 18:30:08 | [facility] | | | | + + + +-------+---------+ + + + | Result panel 332 | + + + + + +-----+---------+ + | | 2022-04-24 | [facility] | 9 | mg/dL | (missing) | | (unavailable | 18:30:08 | [facility] | | | | + + + +-----+---------+ + + + | Result panel 333 | + + + + + +--------+---------+ + | | 2022-04-24 | [facility] | 1.12 | mg/dL | (missing) | | (unavailable | 18:30:08 | [facility] | | | | + + + +--------+---------+ + + + | Result panel 334 | + + + + + +------+ + + | | 2022-04-24 | [facility] | 80 | (missing) | (missing) | | (unavailable | 18:30:08 | [facility] | | | | + + + +------+ + + + + | Result panel 335 | + + + + + +--------+ + + | | 2022-04-24 | [facility] | 8.03 | (missing) | (missing) | | (unavailable | 18:30:08 | [facility] | | | | + + + +--------+ + + + + | Result panel 336 | + + + + + +-------+ + + | | 2022-04-24 | [facility] | 141 | (missing) | (missing) | | (unavailable | 18:30:08 | [facility] | | | | + + + +-------+ + + + + | Result panel 337 | + + + + + +-------+ + + | | 2022-04-24 | [facility] | 4.4 | (missing) | (missing) | | (unavailable | 18:30:08 | [facility] | | | | + + + +-------+ + + + + | Result panel 338 | + + + + + +-------+ + + | | 2022-04-24 | [facility] | 103 | (missing) | (missing) | | (unavailable | 18:30:08 | [facility] | | | | + + + +-------+ + + + + | Result panel 339 | + + + + + +------+ + + | | 2022-04-24 | [facility] | 24 | (missing) | (missing) | | (unavailable | 18:30:08 | [facility] | | | | + + + +------+ + + + + | Result panel 340 | + + + + + +--------+ + + | | 2022-04-24 | [facility] | 18.4 | (missing) | (missing) | | (unavailable | 18:30:08 | [facility] | | | | + + + +--------+ + + + + | Result panel 341 | + + + + + +-------+---------+ + | | 2022-04-24 | [facility] | 8.8 | mg/dL | (missing) | | (unavailable | 18:30:08 | [facility] | | | | + + + +-------+---------+ + + + | Result panel 342 | + + + + + +-------+ + + | | 2022-04-24 | [facility] | 7.2 | (missing) | (missing) | | (unavailable | 18:30:08 | [facility] | | | | + + + +-------+ + + + + | Result panel 343 | + + + + + +-------+ + + | | 2022-04-24 | [facility] | 3.1 | (missing) | (missing) | | (unavailable | 18:30:08 | [facility] | | | | + + + +-------+ + + + + | Result panel 344 | + + + + + +-------+ + + | | 2022-04-24 | [facility] | 4.1 | (missing) | (missing) | | (unavailable | 18:30:08 | [facility] | | | | + + + +-------+ + + + + | Result panel 345 | + + + + + +--------+ + + | | 2022-04-24 | [facility] | 0.76 | (missing) | (missing) | | (unavailable | 18:30:08 | [facility] | | | | + + + +--------+ + + + + | Result panel 346 | + + + + + +-------+ + + | | 2022-04-24 | [facility] | 0.3 | (missing) | (missing) | | (unavailable | 18:30:08 | [facility] | | | | + + + +-------+ + + + + | Result panel 347 | + + + + + +------+ + + | | 2022-04-24 | [facility] | 27 | (missing) | (missing) | | (unavailable | 18:30:08 | [facility] | | | | + + + +------+ + + + + | Result panel 348 | + + + + + +------+ + + | | 2022-04-24 | [facility] | 31 | (missing) | (missing) | | (unavailable | 18:30:08 | [facility] | | | | + + + +------+ + + + + | Result panel 349 | + + + + + +------+ + + | | 2022-04-24 | [facility] | 71 | (missing) | (missing) | | (unavailable | 18:30:08 | [facility] | | | | + + + +------+ + + + + | Result panel 350 | + + + + + + + + + | | 2022-04-24 | [facility] | YELLOW | (missing) | (missing) | | (unavailable | 18:40:08 | [facility] | | | | + + + + + + + + + | Result panel 351 | + + + + + +---------+ + + | | 2022-04-24 | [facility] | CLEAR | (missing) | (missing) | | (unavailable | 18:40:08 | [facility] | | | | + + + +---------+ + + + + | Result panel 352 | + + + + + + + + + | | 2022-04-24 | [facility] | NEGATIVE | (missing) | (missing) | | (unavailable | 18:40:08 | [facility] | | | | + + + + + + + + + | Result panel 353 | + + + + + + + + + | | 2022-04-24 | [facility] | NEGATIVE | (missing) | (missing) | | (unavailable | 18:40:08 | [facility] | | | | + + + + + + + + + | Result panel 354 | + + + + + +---------+ + + | | 2022-04-24 | [facility] | SMALL | (missing) | (missing) | | (unavailable | 18:40:08 | [facility] | | | | + + + +---------+ + + + + | Result panel 355 | + + + + + +---------+ + + | | 2022-04-24 | [facility] | 1.015 | (missing) | (missing) | | (unavailable | 18:40:08 | [facility] | | | | + + + +---------+ + + + + | Result panel 356 | + + + + + + + + + | | 2022-04-24 | [facility] | NEGATIVE | (missing) | (missing) | | (unavailable | 18:40:08 | [facility] | | | | + + + + + + + + + | Result panel 357 | + + + + + +-------+ + + | | 2022-04-24 | [facility] | 7.5 | (missing) | (missing) | | (unavailable | 18:40:08 | [facility] | | | | + + + +-------+ + + + + | Result panel 358 | + + + + + + + + + | | 2022-04-24 | [facility] | NEGATIVE | (missing) | (missing) | | (unavailable | 18:40:08 | [facility] | | | | + + + + + + + + + | Result panel 359 | + + + + + + + + + | | 2022-04-24 | [facility] | NORMAL | (missing) | (missing) | | (unavailable | 18:40:08 | [facility] | | | | + + + + + + + + + | Result panel 360 | + + + + + + + + + | | 2022-04-24 | [facility] | NEGATIVE | (missing) | (missing) | | (unavailable | 18:40:08 | [facility] | | | | + + + + + + + + + | Result panel 361 | + + + + + + + + + | | 2022-04-24 | [facility] | NEGATIVE | (missing) | (missing) | | (unavailable | 18:40:08 | [facility] | | | | + + + + + + + + + | Result panel 362 | + + + + + + + + + | | 2022-04-24 | [facility] | YELLOW | (missing) | (missing) | | (unavailable | 18:40:08 | [facility] | | | | + + + + + + + + + | Result panel 363 | + + + + + +---------+ + + | | 2022-04-24 | [facility] | CLEAR | (missing) | (missing) | | (unavailable | 18:40:08 | [facility] | | | | + + + +---------+ + + + + | Result panel 364 | + + + + + + + + + | | 2022-04-24 | [facility] | NEGATIVE | (missing) | (missing) | | (unavailable | 18:40:08 | [facility] | | | | + + + + + + + + + | Result panel 365 | + + + + + + + + + | | 2022-04-24 | [facility] | NEGATIVE | (missing) | (missing) | | (unavailable | 18:40:08 | [facility] | | | | + + + + + + + + + | Result panel 366 | + + + + + +---------+ + + | | 2022-04-24 | [facility] | SMALL | (missing) | (missing) | | (unavailable | 18:40:08 | [facility] | | | | + + + +---------+ + + + + | Result panel 367 | + + + + + +---------+ + + | | 2022-04-24 | [facility] | 1.015 | (missing) | (missing) | | (unavailable | 18:40:08 | [facility] | | | | + + + +---------+ + + + + | Result panel 368 | + + + + + + + + + | | 2022-04-24 | [facility] | NEGATIVE | (missing) | (missing) | | (unavailable | 18:40:08 | [facility] | | | | + + + + + + + + + | Result panel 369 | + + + + + +-------+ + + | | 2022-04-24 | [facility] | 7.5 | (missing) | (missing) | | (unavailable | 18:40:08 | [facility] | | | | + + + +-------+ + + + + | Result panel 370 | + + + + + + + + + | | 2022-04-24 | [facility] | NEGATIVE | (missing) | (missing) | | (unavailable | 18:40:08 | [facility] | | | | + + + + + + + + + | Result panel 371 | + + + + + + + + + | | 2022-04-24 | [facility] | NORMAL | (missing) | (missing) | | (unavailable | 18:40:08 | [facility] | | | | + + + + + + + + + | Result panel 372 | + + + + + + + + + | | 2022-04-24 | [facility] | NEGATIVE | (missing) | (missing) | | (unavailable | 18:40:08 | [facility] | | | | + + + + + + + + + | Result panel 373 | + + + + + + + + + | | 2022-04-24 | [facility] | NEGATIVE | (missing) | (missing) | | (unavailable | 18:40:08 | [facility] | | | | + + + + + + + + + | Result panel 374 | + + + + + + + + + | | 2022-04-24 | [facility] | NEGATIVE | (missing) | (missing) | | (unavailable | 18:46:08 | [facility] | | | | + + + + + + + + + | Result panel 375 | + + + + + + + + + | | 2022-04-24 | [facility] | NEGATIVE | (missing) | (missing) | | (unavailable | 18:46:08 | [facility] | | | | + + + + + + + + + | Result panel 376 | + + + + + +-------+ + + | | 2022-04-24 | [facility] | 6.3 | (missing) | (missing) | | (unavailable | 21:35:08 | [facility] | | | | + + + +-------+ + + + + | Result panel 377 | + + + + + +-------+ + + | | 2022-04-24 | [facility] | 6.3 | (missing) | (missing) | | (unavailable | 21:35:08 | [facility] | | | | + + + +-------+ + + + + | Result panel 378 | + + + + + +-------+ + + | | 2022-05-06 | [facility] | 104 | (missing) | (missing) | | (unavailable | 10:11:08 | [facility] | | | | + + + +-------+ + + + + | Result panel 379 | + + + + + + + + + | | 2022-06-01 | [facility] | YELLOW | (missing) | (missing) | | (unavailable | 15:33:07 | [facility] | | | | + + + + + + + + + | Result panel 380 | + + + + + + + + + | | 2022-06-01 | [facility] | SL CLOUDY | (missing) | (missing) | | (unavailable | 15:33:07 | [facility] | | | | + + + + + + + + + | Result panel 381 | + + + + + + + + + | | 2022-06-01 | [facility] | NEGATIVE | (missing) | (missing) | | (unavailable | 15:33:07 | [facility] | | | | + + + + + + + + + | Result panel 382 | + + + + + + + + + | | 2022-06-01 | [facility] | NEGATIVE | (missing) | (missing) | | (unavailable | 15:33:07 | [facility] | | | | + + + + + + + + + | Result panel 383 | + + + + + + + + + | | 2022-06-01 | [facility] | NEGATIVE | (missing) | (missing) | | (unavailable | 15:33:07 | [facility] | | | | + + + + + + + + + | Result panel 384 | + + + + + +---------+ + + | | 2022-06-01 | [facility] | 1.020 | (missing) | (missing) | | (unavailable | 15:33:07 | [facility] | | | | + + + +---------+ + + + + | Result panel 385 | + + + + + + + + + | | 2022-06-01 | [facility] | NEGATIVE | (missing) | (missing) | | (unavailable | 15:33:07 | [facility] | | | | + + + + + + + + + | Result panel 386 | + + + + + +-------+ + + | | 2022-06-01 | [facility] | 6.0 | (missing) | (missing) | | (unavailable | 15:33:07 | [facility] | | | | + + + +-------+ + + + + | Result panel 387 | + + + + + + + + + | | 2022-06-01 | [facility] | NEGATIVE | (missing) | (missing) | | (unavailable | 15:33:07 | [facility] | | | | + + + + + + + + + | Result panel 388 | + + + + + + + + + | | 2022-06-01 | [facility] | NORMAL | (missing) | (missing) | | (unavailable | 15:33:07 | [facility] | | | | + + + + + + + + + | Result panel 389 | + + + + + + + + + | | 2022-06-01 | [facility] | NEGATIVE | (missing) | (missing) | | (unavailable | 15:33:07 | [facility] | | | | + + + + + + + + + | Result panel 390 | + + + + + +---------+ + + | | 2022-06-01 | [facility] | SMALL | (missing) | (missing) | | (unavailable | 15:33:07 | [facility] | | | | + + + +---------+ + + + + | Result panel 391 | + + + + + +-------+ + + | | 2022-06-01 | [facility] | 0-1 | (missing) | (missing) | | (unavailable | 15:33:07 | [facility] | | | | + + + +-------+ + + + + | Result panel 392 | + + + + + +---------+ + + | | 2022-06-01 | [facility] | 12-20 | (missing) | (missing) | | (unavailable | 15:33:07 | [facility] | | | | + + + +---------+ + + + + | Result panel 393 | + + + + + + + + + | | 2022-06-01 | [facility] | SQUAMOUS 2+ | (missing) | (missing) | | (unavailable | 15:33:07 | [facility] | | | | + + + + + + + + + | Result panel 394 | + + + + + + + + + | | 2022-06-01 | [facility] | NONE SEEN | (missing) | (missing) | | (unavailable | 15:33:07 | [facility] | | | | + + + + + + + + + | Result panel 395 | + + + + + +------+ + + | | 2022-06-01 | [facility] | 2+ | (missing) | (missing) | | (unavailable | 15:33:07 | [facility] | | | | + + + +------+ + + + + | Result panel 396 | + + + + + + + + + | | 2022-06-01 | [facility] | NONE SEEN | (missing) | (missing) | | (unavailable | 15:33:07 | [facility] | | | | + + + + + + + + + | Result panel 397 | + + + + + +------+ + + | | 2022-06-01 | [facility] | No | (missing) | (missing) | | (unavailable | 15:33:07 | [facility] | | | | + + + +------+ + + + + | Result panel 398 | + + + + + +--------+ + + | | 2022-06-01 | [facility] | CATH | (missing) | (missing) | | (unavailable | 15:33:07 | [facility] | | | | + + + +--------+ + + + + | Result panel 399 | + + + + + +-------+ + + | | 2022-06-01 | [facility] | 9.8 | (missing) | (missing) | | (unavailable | 15:39:07 | [facility] | | | | + + + +-------+ + + + + | Result panel 400 | + + + + + +--------+ + + | | 2022-06-01 | [facility] | 4.77 | (missing) | (missing) | | (unavailable | 15:39:07 | [facility] | | | | + + + +--------+ + + + + | Result panel 401 | + + + + + +--------+ + + | | 2022-06-01 | [facility] | 12.8 | (missing) | (missing) | | (unavailable | 15:39:07 | [facility] | | | | + + + +--------+ + + + + | Result panel 402 | + + + + + +--------+ + + | | 2022-06-01 | [facility] | 40.2 | (missing) | (missing) | | (unavailable | 15:39:07 | [facility] | | | | + + + +--------+ + + + + | Result panel 403 | + + + + + +--------+ + + | | 2022-06-01 | [facility] | 84.3 | (missing) | (missing) | | (unavailable | 15:39:07 | [facility] | | | | + + + +--------+ + + + + | Result panel 404 | + + + + + +--------+ + + | | 2022-06-01 | [facility] | 26.7 | (missing) | (missing) | | (unavailable | 15:39:07 | [facility] | | | | + + + +--------+ + + + + | Result panel 405 | + + + + + +--------+ + + | | 2022-06-01 | [facility] | 31.7 | (missing) | (missing) | | (unavailable | 15:39:07 | [facility] | | | | + + + +--------+ + + + + | Result panel 406 | + + + + + +--------+ + + | | 2022-06-01 | [facility] | 14.5 | (missing) | (missing) | | (unavailable | 15:39:07 | [facility] | | | | + + + +--------+ + + + + | Result panel 407 | + + + + + +-------+ + + | | 2022-06-01 | [facility] | 295 | (missing) | (missing) | | (unavailable | 15:39:07 | [facility] | | | | + + + +-------+ + + + + | Result panel 408 | + + + + + +--------+ + + | | 2022-06-01 | [facility] | 72.0 | (missing) | (missing) | | (unavailable | 15:39:07 | [facility] | | | | + + + +--------+ + + + + | Result panel 409 | + + + + + +--------+ + + | | 2022-06-01 | [facility] | 17.0 | (missing) | (missing) | | (unavailable | 15:39:07 | [facility] | | | | + + + +--------+ + + + + | Result panel 410 | + + + + + +-------+ + + | | 2022-06-01 | [facility] | 5.5 | (missing) | (missing) | | (unavailable | 15:39:07 | [facility] | | | | + + + +-------+ + + + + | Result panel 411 | + + + + + +-------+ + + | | 2022-06-01 | [facility] | 4.3 | (missing) | (missing) | | (unavailable | 15:39:07 | [facility] | | | | + + + +-------+ + + + + | Result panel 412 | + + + + + +-------+ + + | | 2022-06-01 | [facility] | 1.2 | (missing) | (missing) | | (unavailable | 15:39:07 | [facility] | | | | + + + +-------+ + + + + | Result panel 413 | + + + + + +-------+---------+ + | | 2022-06-01 | [facility] | 117 | mg/dL | (missing) | | (unavailable | 15:39:07 | [facility] | | | | + + + +-------+---------+ + + + | Result panel 414 | + + + + + +------+---------+ + | | 2022-06-01 | [facility] | 14 | mg/dL | (missing) | | (unavailable | 15:39:07 | [facility] | | | | + + + +------+---------+ + + + | Result panel 415 | + + + + + +--------+---------+ + | | 2022-06-01 | [facility] | 0.78 | mg/dL | (missing) | | (unavailable | 15:39:07 | [facility] | | | | + + + +--------+---------+ + + + | Result panel 416 | + + + + + +-------+ + + | | 2022-06-01 | [facility] | 108 | (missing) | (missing) | | (unavailable | 15:39:07 [facility] | | | | + + + +-------+ + + + + | Result panel 417 | + + + + + +---------+ + + | | 2022-06-01 | [facility] | 17.94 | (missing) | (missing) | | (unavailable | 15:39:07 [facility] | | | | + + + +---------+ + + + + | Result panel 418 | + + + + + +-------+ + + | | 2022-06-01 | [facility] | 140 | (missing) | (missing) | | (unavailable | 15:39:07 [facility] | | | | + + + +-------+ + + + + | Result panel 419 | + + + + + +-------+ + + | | 2022-06-01 | [facility] | 4.2 | (missing) | (missing) | | (unavailable | 15:39:07 [facility] | | | | + + + +-------+ + + + + | Result panel 420 | + + + + + +-------+ + + | | 2022-06-01 | [facility] | 104 | (missing) | (missing) | | (unavailable | 15:39:07 [facility] | | | | + + + +-------+ + + + + | Result panel 421 | + + + + + +------+ + + | | 2022-06-01 | [facility] | 31 | (missing) | (missing) | | (unavailable | 15:39:07 [facility] | | | | + + + +------+ + + + + | Result panel 422 | + + + + + +-------+ + + | | 2022-06-01 | [facility] | 9.2 | (missing) | (missing) | | (unavailable | 15:39:07 [facility] | | | | + + + +-------+ + + + + | Result panel 423 | + + + + + +-------+---------+ + | | 2022-06-01 | [facility] | 8.6 | mg/dL | (missing) | | (unavailable | 15:39:07 [facility] | | | | + + + +-------+---------+ + + + | Result panel 424 | + + + + + +------+ + + | | 2022-06-06 | [facility] | 93 | (missing) | (missing) | | (unavailable | 11:04:07 | [facility] | | | | + + + +------+ + + + + | Result panel 425 | + + + + + +--------+ + + | | 2022-08-17 | [facility] | 11.5 | (missing) | (missing) | | (unavailable | 17:48:07 [facility] | | | | + + + +--------+ + + + + | Result panel 426 | + + + + + +--------+ + + | | 2022-08-17 | [facility] | 69.8 | (missing) | (missing) | | (unavailable | 17:48:07 [facility] | | | | + + + +--------+ + + + + | Result panel 427 | + + + + + +--------+ + + | | 2022-08-17 | [facility] | 20.3 | (missing) | (missing) | | (unavailable | 17:48:07 [facility] | | | | + + + +--------+ + + + + | Result panel 428 | + + + + + +-------+ + + | | 2022-08-17 | [facility] | 5.0 | (missing) | (missing) | | (unavailable | 17:48:07 [facility] | | | | + + + +-------+ + + + + | Result panel 429 | + + + + + +-------+ + + | | 2022-08-17 | [facility] | 3.9 | (missing) | (missing) | | (unavailable | 17:48:07 | [facility] | | | | + + + +-------+ + + + + | Result panel 430 | + + + + + +-------+ + + | | 2022-08-17 | [facility] | 1.0 | (missing) | (missing) | | (unavailable | 17:48:07 [facility] | | | | + + + +-------+ + + + + | Result panel 431 | + + + + + +--------+ + + | | 2022-08-17 | [facility] | 4.93 | (missing) | (missing) | | (unavailable | 17:48:07 [facility] | | | | + + + +--------+ + + + + | Result panel 432 | + + + + + +--------+ + + | | 2022-08-17 | [facility] | 12.9 | (missing) | (missing) | | (unavailable | 17:48:07 | [facility] | | | | + + + +--------+ + + + + | Result panel 433 | + + + + + +-------+---------+ + | | 2022-08-17 | [facility] | 133 | mg/dL | (missing) | | (unavailable | 17:48:07 [facility] | | | | + + + +-------+---------+ + + + | Result panel 434 | + + + + + +------+---------+ + | | 2022-08-17 | [facility] | 11 | mg/dL | (missing) | | (unavailable | 17:48:07 [facility] | | | | + + + +------+---------+ + + + | Result panel 435 | + + + + + +--------+---------+ + | | 2022-08-17 | [facility] | 0.71 | mg/dL | (missing) | | (unavailable | 17:48:07 [facility] | | | | + + + +--------+---------+ + + + | Result panel 436 | + + + + + +-------+ + + | | 2022-08-17 | [facility] | 110 | (missing) | (missing) | | (unavailable | 17:48:07 [facility] | | | | + + + +-------+ + + + + | Result panel 437 | + + + + + +---------+ + + | | 2022-08-17 | [facility] | 15.49 | (missing) | (missing) | | (unavailable | 17:48:07 | [facility] | | | | + + + +---------+ + + + + | Result panel 438 | + + + + + +--------+ + + | | 2022-08-17 | [facility] | 41.4 | (missing) | (missing) | | (unavailable | 17:48:07 | [facility] | | | | + + + +--------+ + + + + | Result panel 439 | + + + + + +-------+ + + | | 2022-08-17 | [facility] | 138 | (missing) | (missing) | | (unavailable | 17:48:07 | [facility] | | | | + + + +-------+ + + + + | Result panel 440 | + + + + + +-------+ + + | | 2022-08-17 | [facility] | 4.0 | (missing) | (missing) | | (unavailable | 17:48:07 | [facility] | | | | + + + +-------+ + + + + | Result panel 441 | + + + + + +-------+ + + | | 2022-08-17 | [facility] | 102 | (missing) | (missing) | | (unavailable | 17:48:07 | [facility] | | | | + + + +-------+ + + + + | Result panel 442 | + + + + + +------+ + + | | 2022-08-17 | [facility] | 30 | (missing) | (missing) | | (unavailable | 17:48:07 | [facility] | | | | + + + +------+ + + + + | Result panel 443 | + + + + + +--------+ + + | | 2022-08-17 | [facility] | 10.0 | (missing) | (missing) | | (unavailable | 17:48:07 | [facility] | | | | + + + +--------+ + + + + | Result panel 444 | + + + + + +-------+---------+ + | | 2022-08-17 | [facility] | 8.7 | mg/dL | (missing) | | (unavailable | 17:48:07 | [facility] | | | | + + + +-------+---------+ + + + | Result panel 445 | + + + + + +-------+ + + | | 2022-08-17 | [facility] | 7.7 | (missing) | (missing) | | (unavailable | 17:48:07 | [facility] | | | | + + + +-------+ + + + + | Result panel 446 | + + + + + +-------+ + + | | 2022-08-17 | [facility] | 3.5 | (missing) | (missing) | | (unavailable | 17:48:07 | [facility] | | | | + + + +-------+ + + + + | Result panel 447 | + + + + + +-------+ + + | | 2022-08-17 | [facility] | 4.2 | (missing) | (missing) | | (unavailable | 17:48:07 | [facility] | | | | + + + +-------+ + + + + | Result panel 448 | + + + + + +--------+ + + | | 2022-08-17 | [facility] | 0.83 | (missing) | (missing) | | (unavailable | 17:48:07 | [facility] | | | | + + + +--------+ + + + + | Result panel 449 | + + + + + +--------+ + + | | 2022-08-17 | [facility] | 84.0 | (missing) | (missing) | | (unavailable | 17:48:07 | [facility] | | | | + + + +--------+ + + + + | Result panel 450 | + + + + + +-------+ + + | | 2022-08-17 | [facility] | 0.3 | (missing) | (missing) | | (unavailable | 17:48:07 | [facility] | | | | + + + +-------+ + + + + | Result panel 451 | + + + + + +------+ + + | | 2022-08-17 | [facility] | 17 | (missing) | (missing) | | (unavailable | 17:48:07 | [facility] | | | | + + + +------+ + + + + | Result panel 452 | + + + + + +------+ + + | | 2022-08-17 | [facility] | 30 | (missing) | (missing) | | (unavailable | 17:48:07 | [facility] | | | | + + + +------+ + + + + | Result panel 453 | + + + + + +-------+ + + | | 2022-08-17 | [facility] | 102 | (missing) | (missing) | | (unavailable | 17:48:07 | [facility] | | | | + + + +-------+ + + + + | Result panel 454 | + + + + + +--------+ + + | | 2022-08-17 | [facility] | 26.2 | (missing) | (missing) | | (unavailable | 17:48:07 | [facility] | | | | + + + +--------+ + + + + | Result panel 455 | + + + + + +--------+ + + | | 2022-08-17 | [facility] | 31.2 | (missing) | (missing) | | (unavailable | 17:48:07 | [facility] | | | | + + + +--------+ + + + + | Result panel 456 | + + + + + +--------+ + + | | 2022-08-17 | [facility] | 15.4 | (missing) | (missing) | | (unavailable | 17:48:07 | [facility] | | | | + + + +--------+ + + + + | Result panel 457 | + + + + + +-------+ + + | | 2022-08-17 | [facility] | 267 | (missing) | (missing) | | (unavailable | 17:48:07 | [facility] | | | | + + + +-------+ + + + + | Result panel 458 | + + + + + + + + + | | 2022-08-17 | [facility] | YELLOW | (missing) | (missing) | | (unavailable | 17:56:07 | [facility] | | | | + + + + + + + + + | Result panel 459 | + + + + + +---------+ + + | | 2022-08-17 | [facility] | CLEAR | (missing) | (missing) | | (unavailable | 17:56:07 | [facility] | | | | + + + +---------+ + + + + | Result panel 460 | + + + + + + + + + | | 2022-08-17 | [facility] | NEGATIVE | (missing) | (missing) | | (unavailable | 17:56:07 | [facility] | | | | + + + + + + + + + | Result panel 461 | + + + + + + + + + | | 2022-08-17 | [facility] | NEGATIVE | (missing) | (missing) | | (unavailable | 17:56:07 | [facility] | | | | + + + + + + + + + | Result panel 462 | + + + + + + + + + | | 2022-08-17 | [facility] | NEGATIVE | (missing) | (missing) | | (unavailable | 17:56:07 | [facility] | | | | + + + + + + + + + | Result panel 463 | + + + + + + + + + | | 2022-08-17 | [facility] | <=1.005 | (missing) | (missing) | | (unavailable | 17:56:07 | [facility] | | | | + + + + + + + + + | Result panel 464 | + + + + + + + + + | | 2022-08-17 | [facility] | TRACE-I | (missing) | (missing) | | (unavailable | 17:56:07 | [facility] | | | | + + + + + + + + + | Result panel 465 | + + + + + +-------+ + + | | 2022-08-17 | [facility] | 7.0 | (missing) | (missing) | | (unavailable | 17:56:07 | [facility] | | | | + + + +-------+ + + + + | Result panel 466 | + + + + + + + + + | | 2022-08-17 | [facility] | NEGATIVE | (missing) | (missing) | | (unavailable | 17:56:07 | [facility] | | | | + + + + + + + + + | Result panel 467 | + + + + + + + + + | | 2022-08-17 | [facility] | NORMAL | (missing) | (missing) | | (unavailable | 17:56:07 | [facility] | | | | + + + + + + + + + | Result panel 468 | + + + + + + + + + | | 2022-08-17 | [facility] | NEGATIVE | (missing) | (missing) | | (unavailable | 17:56:07 | [facility] | | | | + + + + + + + + + | Result panel 469 | + + + + + +---------+ + + | | 2022-08-17 | [facility] | LARGE | (missing) | (missing) | | (unavailable | 17:56:07 | [facility] | | | | + + + +---------+ + + + + | Result panel 470 | + + + + + +-------+ + + | | 2022-08-17 | [facility] | 0-1 | (missing) | (missing) | | (unavailable | 17:56:07 | [facility] | | | | + + + +-------+ + + + + | Result panel 471 | + + + + + +--------+ + + | | 2022-08-17 | [facility] | -11 | (missing) | (missing) | | (unavailable | 17:56:07 | [facility] | | | | + + + +--------+ + + + + | Result panel 472 | + + + + + +-----+ + + | | 2022-08-17 | [facility] | 0 | (missing) | (missing) | | (unavailable | 17:56:07 | [facility] | | | | + + + +-----+ + + + + | Result panel 473 | + + + + + + + + + | | 2022-08-17 | [facility] | NONE SEEN | (missing) | (missing) | | (unavailable | 17:56:07 | [facility] | | | | + + + + + + + + + | Result panel 474 | + + + + + +------+ + + | | 2022-08-17 | [facility] | 1+ | (missing) | (missing) | | (unavailable | 17:56:07 | [facility] | | | | + + + +------+ + + + + | Result panel 475 | + + + + + + + + + | | 2022-08-17 | [facility] | NONE SEEN | (missing) | (missing) | | (unavailable | 17:56:07 | [facility] | | | | + + + + + + + + + | Result panel 476 | + + + + + +-------+ + + | | 2022-08-17 | [facility] | Yes | (missing) | (missing) | | (unavailable | 17:56:07 | [facility] | | | | + + + +-------+ + + + + | Result panel 477 | + + + + + +--------+ + + | | 2022-08-17 | [facility] | CATH | (missing) | (missing) | | (unavailable | 17:56:07 | [facility] | | | | + + + +--------+ + + Social History No information. Vital Signs + + + +---------+ | date | measurement | value | units | + + + +---------+ | 2021-07-03 00:00 | BMI | 40.4 | kg/m2 | + + + +---------+ | 2021-07-03 00:00 | height_metric | 177.8 | cm | + + + +---------+ | 2021-07-03 00:00 | height_standard | 70 | in | + + + +---------+ | 2021-07-03 00:00 | weight_metric | 127.7 | kg | + + + +---------+ | 2021-07-03 00:00 | weight_standard | 281.53 | lb | + + + +---------+ | 2021-07-05 00:00 | BP_diastolic | 55 | mmHg | + + + +---------+ | 2021-07-05 00:00 | BP_systolic | 98 | mmHg | + + + +---------+ | 2021-07-05 00:00 | heart_rate | 62 | /min | + + + +---------+ | 2021-07-05 00:00 | o2_saturation | 97 | % | + + + +---------+ | 2021-07-05 00:00 | respiration_rate | 18 | /min | + + + +---------+ | 2021-07-05 00:00 | temperature_metric | 36.67 | C | | | | | | + + + +---------+ | 2021-07-05 00:00 | | 98 | F | | | temperature_standar | | | | | d | | | + + + +---------+ | 2021-09-03 00:00 | BMI | 40.3 | kg/m2 | + + + +---------+ | 2021-09-03 00:00 | BP_diastolic | 66 | mmHg | + + + +---------+ | 2021-09-03 00:00 | BP_systolic | 104 | mmHg | + + + +---------+ | 2021-09-03 00:00 | heart_rate | 62 | /min | + + + +---------+ | 2021-09-03 00:00 | height_metric | 177.8 | cm | + + + +---------+ | 2021-09-03 00:00 | height_standard | 70 | in | + + + +---------+ | 2021-09-03 00:00 | o2_saturation | 93 | % | + + + +---------+ | 2021-09-03 00:00 | respiration_rate | 14 | /min | + + + +---------+ | 2021-09-03 00:00 | temperature_metric | 36.89 | C | | | | | | + + + +---------+ | 2021-09-03 00:00 | | 98.4 | F | | | temperature_standar | | | | | d | | | + + + +---------+ | 2021-09-03 00:00 | weight_metric | 127.46 | kg | + + + +---------+ | 2021-09-03 00:00 | weight_standard | 281 | lb | + + + +---------+ | 2021-10-29 00:00 | BMI | 29.6 | kg/m2 | + + + +---------+ | 2021-10-29 00:00 | height_metric | 177.8 | cm | + + + +---------+ | 2021-10-29 00:00 | height_standard | 70 | in | + + + +---------+ | 2021-10-29 00:00 | weight_metric | 93.5 | kg | + + + +---------+ | 2021-10-29 00:00 | weight_standard | 206.13 | lb | + + + +---------+ | 2021-10-31 00:00 | BP_diastolic | 77 | mmHg | + + + +---------+ | 2021-10-31 00:00 | BP_systolic | 147 | mmHg | + + + +---------+ | 2021-10-31 00:00 | heart_rate | 80 | /min | + + + +---------+ | 2021-10-31 00:00 | o2_saturation | 98 | % | + + + +---------+ | 2021-10-31 00:00 | respiration_rate | 18 | /min | + + + +---------+ | 2021-10-31 00:00 | temperature_metric | 37.28 | C | | | | | | + + + +---------+ | 2021-10-31 00:00 | | 99.1 | F | | | temperature_standar | | | | | d | | | + + + +---------+ | 2022-03-10 00:00 | BMI | 42.7 | kg/m2 | + + + +---------+ | 2022-03-10 00:00 | height_metric | 177.8 | cm | + + + +---------+ | 2022-03-10 00:00 | height_standard | 70 | in | + + + +---------+ | 2022-03-10 00:00 | weight_metric | 135 | kg | + + + +---------+ | 2022-03-10 00:00 | weight_standard | 297.62 | lb | + + + +---------+ | 2022-03-13 00:00 | BP_diastolic | 85 | mmHg | + + + +---------+ | 2022-03-13 00:00 | BP_systolic | 148 | mmHg | + + + +---------+ | 2022-03-13 00:00 | heart_rate | 62 | /min | + + + +---------+ | 2022-03-13 00:00 | o2_saturation | 97 | % | + + + +---------+ | 2022-03-13 00:00 | respiration_rate | 17 | /min | + + + +---------+ | 2022-03-13 00:00 | temperature_metric | 36.89 | C | | | | | | + + + +---------+ | 2022-03-13 00:00 | | 98.4 | F | | | temperature_standar | | | | | d | | | + + + +---------+ | 2022-04-21 00:00 | BMI | 41.1 | kg/m2 | + + + +---------+ | 2022-04-21 00:00 | height_metric | 177.8 | cm | + + + +---------+ | 2022-04-21 00:00 | height_standard | 70 | in | + + + +---------+ | 2022-04-21 00:00 | weight_metric | 130 | kg | + + + +---------+ | 2022-04-21 00:00 | weight_standard | 286.6 | lb | + + + +---------+ | 2022-04-24 00:00 | BMI | 41.1 | kg/m2 | + + + +---------+ | 2022-04-24 00:00 | BP_diastolic | 66 | mmHg | + + + +---------+ | 2022-04-24 00:00 | BP_diastolic | 78 | mmHg | + + + +---------+ | 2022-04-24 00:00 | BP_systolic | 115 | mmHg | + + + +---------+ | 2022-04-24 00:00 | BP_systolic | 140 | mmHg | + + + +---------+ | 2022-04-24 00:00 | heart_rate | 82 | /min | + + + +---------+ | 2022-04-24 00:00 | heart_rate | 84 | /min | + + + +---------+ | 2022-04-24 00:00 | height_metric | 177.8 | cm | + + + +---------+ | 2022-04-24 00:00 | height_standard | 70 | in | + + + +---------+ | 2022-04-24 00:00 | o2_saturation | 92 | % | + + + +---------+ | 2022-04-24 00:00 | o2_saturation | 97 | % | + + + +---------+ | 2022-04-24 00:00 | respiration_rate | 16 | /min | + + + +---------+ | 2022-04-24 00:00 | respiration_rate | 22 | /min | + + + +---------+ | 2022-04-24 00:00 | temperature_metric | 36.94 | C | | | | | | + + + +---------+ | 2022-04-24 00:00 | temperature_metric | 37 | C | | | | | | + + + +---------+ | 2022-04-24 00:00 | | 98.5 | F | | | temperature_standar | | | | | d | | | + + + +---------+ | 2022-04-24 00:00 | | 98.6 | F | | | temperature_standar | | | | | d | | | + + + +---------+ | 2022-04-24 00:00 | weight_metric | 129.93 | kg | + + + +---------+ | 2022-04-24 00:00 | weight_standard | 286.44 | lb | + + + +---------+ | 2022-04-24 00:00 | weight_standard | 286.45 | lb | + + + +---------+ | 2022-04-27 00:00 | BMI | 41.3 | kg/m2 | + + + +---------+ | 2022-04-27 00:00 | height_metric | 177.8 | cm | + + + +---------+ | 2022-04-27 00:00 | height_standard | 70 | in | + + + +---------+ | 2022-04-27 00:00 | weight_metric | 130.45 | kg | + + + +---------+ | 2022-04-27 00:00 | weight_standard | 287.59 | lb | + + + +---------+ | 2022-05-06 00:00 | BP_diastolic | 70 | mmHg | + + + +---------+ | 2022-05-06 00:00 | BP_systolic | 105 | mmHg | + + + +---------+ | 2022-05-06 00:00 | heart_rate | 98 | /min | + + + +---------+ | 2022-05-06 00:00 | o2_saturation | 98 | % | + + + +---------+ | 2022-05-06 00:00 | respiration_rate | 17 | /min | + + + +---------+ | 2022-05-06 00:00 | temperature_metric | 36.22 | C | | | | | | + + + +---------+ | 2022-05-06 00:00 | | 97.2 | F | | | temperature_standar | | | | | d | | | + + + +---------+ | 2022-06-01 00:00 | BMI | 40.5 | kg/m2 | + + + +---------+ | 2022-06-01 00:00 | height_metric | 177.8 | cm | + + + +---------+ | 2022-06-01 00:00 | height_standard | 70 | in | + + + +---------+ | 2022-06-01 00:00 | weight_metric | 128.18 | kg | + + + +---------+ | 2022-06-01 00:00 | weight_standard | 282.59 | lb | + + + +---------+ | 2022-06-06 00:00 | BP_diastolic | 69 | mmHg | + + + +---------+ | 2022-06-06 00:00 | BP_systolic | 126 | mmHg | + + + +---------+ | 2022-06-06 00:00 | heart_rate | 56 | /min | + + + +---------+ | 2022-06-06 00:00 | o2_saturation | 95 | % | + + + +---------+ | 2022-06-06 00:00 | respiration_rate | 16 | /min | + + + +---------+ | 2022-06-06 00:00 | temperature_metric | 36.11 | C | | | | | | + + + +---------+ | 2022-06-06 00:00 | | 97 | F | | | temperature_standar | | | | | d | | | + + + +---------+ | 2022-08-17 00:00 | BMI | 38.9 | kg/m2 | + + + +---------+ | 2022-08-17 00:00 | BP_diastolic | 90 | mmHg | + + + +---------+ | 2022-08-17 00:00 | BP_systolic | 128 | mmHg | + + + +---------+ | 2022-08-17 00:00 | heart_rate | 55 | /min | + + + +---------+ | 2022-08-17 00:00 | height_metric | 177.8 | cm | + + + +---------+ | 2022-08-17 00:00 | height_standard | 70 | in | + + + +---------+ | 2022-08-17 00:00 | o2_saturation | 96 | % | + + + +---------+ | 2022-08-17 00:00 | respiration_rate | 17 | /min | + + + +---------+ | 2022-08-17 00:00 | temperature_metric | 36.67 | C | | | | | | + + + +---------+ | 2022-08-17 00:00 | | 98 | F | | | temperature_standar | | | | | d | | | + + + +---------+ | 2022-08-17 00:00 | weight_metric | 123.12 | kg | + + + +---------+ | 2022-08-17 00:00 | weight_standard | 271.43 | lb | + + + +---------+ | 2022-08-17 00:00 | weight_standard | 271.44 | lb | + + + +---------+"
--- OUTSIDE RECORDS SUMMARY | ~2022-10-09 | XMS | Continuity of Care Document ---
Demographics + + + | Address | [id number] [place] [address] RD | | | [place] [address] | + + + | Preferred Language | Unknown | + + + | Marital Status | Never | + + + | Yarsanism Affiliation | Unknown | + + + | Race | or | + + + | Ethnic Group | Not or | + + + Author + + + | Author | [facility] | + + + | Organization | [facility] | + + + | Address | [address] | | | [place] [address] | + + + | Phone | | + + + Care Team Providers + + + + | Care Otolaryngology Teacher Name | Role | Phone | [...] | (no date) | Wasp venom | [facility] | (no reaction) | (no severity) | | [facility] | | | + + + + + + Encounters No information. Functional Status No information. Immunizations + + + + | date | description | facility | + + + + | 2017-12-18 00:00 | Influenza, Seasonal, | [facility] | | | Injectable, Preservative | | | | Free | | + + + + | 2017-12-18 00:00 | Influenza, Seasonal, | [facility] | | | Injectable, Preservative | | | | Free | | + + + + | 2021-09-08 00:00 | Influenza, Injectable, | [facility] | | | Quadrivalent, Preservative | | + + + + | 2021-10-31 00:00 | Influenza, Injectable, | [facility] | | | Quadrivalent, Preservative | | + + + + | 2022-03-13 00:00 | Influenza, Injectable, | [facility] | | | Quadrivalent, Preservative | | + + + + | 2022-04-24 00:00 | Influenza, Injectable, | [facility] | | | Quadrivalent, Preservative | | + + + + | 2022-05-06 00:00 | Influenza, Injectable, | [facility] | | | Quadrivalent, Preservative | | + + + + | 2022-06-06 00:00 | Influenza, Injectable, | [facility] | | | Quadrivalent, Preservative | | + + + + | 2022-08-17 00:00 | Influenza, Injectable, | [facility] | | | Quadrivalent, Preservative | | + + + + | 2022-06-06 00:00 | Botulinum Antitoxin | [facility] | + + + + Medications + + + + | date | description | facility | + + + + | 2022-06-06 00:00 | DIAZEPAM | [facility] | + + + + | 2022-08-17 00:00 | DIAZEPAM | [facility] | + + + + | 2021-10-31 00:00 | POLYETHYLENE GLYCOL 3350 | [facility] | + + + + | 2021-10-31 00:00 | POLYETHYLENE GLYCOL 3350 | [facility] | + + + + | 2022-03-13 00:00 | POLYETHYLENE GLYCOL 3350 | [facility] | + + + + | 2020-11-13 00:00 | DIPHENOXYLATE HCL/ATROPINE | [facility] | | | | | + + + + | 2021-09-08 00:00 | DIPHENOXYLATE HCL/ATROPINE | [facility] | | | | | + + + + | 2021-10-31 00:00 | DIPHENOXYLATE HCL/ATROPINE | [facility] | | | | | + + + + | 2022-03-13 00:00 | DIPHENOXYLATE HCL/ATROPINE | [facility] | | | | | + + + + | 2022-04-24 00:00 | DIPHENOXYLATE HCL/ATROPINE | [facility] | | | | | + + + + | 2022-05-06 00:00 | DIPHENOXYLATE HCL/ATROPINE | [facility] | | | | | + + + + | 2022-06-06 00:00 | DIPHENOXYLATE HCL/ATROPINE | [facility] | | | | | + + + + | 2022-08-17 00:00 | DIPHENOXYLATE HCL/ATROPINE | [facility] | | | | | + + + + | 2021-10-31 00:00 | DIPHENOXYLATE HCL/ATROPINE | [facility] | | | | | + + + + | 2022-03-13 00:00 | DIPHENOXYLATE HCL/ATROPINE | [facility] | | | | | + + + + | 2022-04-24 00:00 | DIPHENOXYLATE HCL/ATROPINE | [facility] | | | | | + + + + | 2022-05-06 00:00 | DIPHENOXYLATE HCL/ATROPINE | [facility] | | | | | + + + + | 2022-06-06 00:00 | DIPHENOXYLATE HCL/ATROPINE | [facility] | | | | | + + + + | 2022-08-17 00:00 | DIPHENOXYLATE HCL/ATROPINE | [facility] | | | | | + + + + | 2021-09-08 00:00 | TIZANIDINE HCL | [facility] | + + + + | 2021-10-31 00:00 | TIZANIDINE HCL | [facility] | + + + + | 2022-03-13 00:00 | TIZANIDINE HCL | [facility] | + + + + | 2022-04-24 00:00 | TIZANIDINE HCL | [facility] | + + + + | 2022-05-06 00:00 | TIZANIDINE HCL | [facility] | + + + + | 2022-06-06 00:00 | TIZANIDINE HCL | [facility] | + + + + | 2022-08-17 00:00 | TIZANIDINE HCL | [facility] | + + + + | 2022-06-06 00:00 | DOXYCYCLINE HYCLATE | [facility] | + + + + | 2020-11-13 00:00 | BACLOFEN | [facility] | + + + + | 2021-09-08 00:00 | BACLOFEN | [facility] | + + + + | 2021-10-31 00:00 | BACLOFEN | [facility] | + + + + | 2022-03-13 00:00 | BACLOFEN | [facility] | + + + + | 2022-04-24 00:00 | BACLOFEN | [facility] | + + + + | 2022-05-06 00:00 | BACLOFEN | [facility] | + + + + | 2022-06-06 00:00 | BACLOFEN | [facility] | + + + + | 2022-08-17 00:00 | BACLOFEN | [facility] | + + + + | 2022-03-13 00:00 | BACLOFEN | [facility] | + + + + | 2022-04-24 00:00 | BACLOFEN | [facility] | + + + + | 2022-05-06 00:00 | BACLOFEN | [facility] | + + + + | 2022-06-06 00:00 | BACLOFEN | [facility] | + + + + | 2022-08-17 00:00 | BACLOFEN | [facility] | + + + + | 2022-04-24 00:00 | DIAZEPAM | [facility] | + + + + | 2022-04-24 00:00 | DIAZEPAM | [facility] | + + + + | 2021-09-08 00:00 | OMEPRAZOLE | [facility] | + + + + | 2021-10-31 00:00 | OMEPRAZOLE | [facility] | + + + + | 2022-03-13 00:00 | OMEPRAZOLE | [facility] | + + + + | 2022-04-24 00:00 | OMEPRAZOLE | [facility] | + + + + | 2022-05-06 00:00 | OMEPRAZOLE | [facility] | + + + + | 2022-06-06 00:00 | OMEPRAZOLE | [facility] | + + + + | 2022-08-17 00:00 | OMEPRAZOLE | [facility] | + + + + | 2021-09-08 00:00 | ACETAMINOPHEN | [facility] | + + + + | 2021-10-31 00:00 | ACETAMINOPHEN | [facility] | + + + + | 2022-03-13 00:00 | ACETAMINOPHEN | [facility] | + + + + | 2022-04-24 00:00 | ACETAMINOPHEN | [facility] | + + + + | 2022-05-06 00:00 | ACETAMINOPHEN | [facility] | + + + + | 2022-06-06 00:00 | ACETAMINOPHEN | [facility] | + + + + | 2022-08-17 00:00 | ACETAMINOPHEN | [facility] | + + + + | 2021-09-08 00:00 | BISACODYL | [facility] | + + + + | 2021-10-31 00:00 | BISACODYL | [facility] | + + + + | 2022-03-13 00:00 | BISACODYL | [facility] | + + + + | 2022-03-13 00:00 | BISACODYL | [facility] | + + + + | 2022-04-24 00:00 | BISACODYL | [facility] | + + + + | 2022-05-06 00:00 | BISACODYL | [facility] | + + + + | 2022-06-06 00:00 | BISACODYL | [facility] | + + + + | 2022-08-17 00:00 | BISACODYL | [facility] | + + + + | 2021-10-31 00:00 | SIMETHICONE | [facility] | + + + + | 2021-10-31 00:00 | SIMETHICONE | [facility] | + + + + | 2021-09-08 00:00 | CEPHALEXIN | [facility] | + + + + | 2021-10-31 00:00 | CEPHALEXIN | [facility] | + + + + | 2022-03-13 00:00 | CEPHALEXIN | [facility] | + + + + | 2022-04-24 00:00 | CEPHALEXIN | [facility] | + + + + | 2022-05-06 00:00 | CEPHALEXIN | [facility] | + + + + | 2022-06-06 00:00 | CEPHALEXIN | [facility] | + + + + | 2022-08-17 00:00 | CEPHALEXIN | [facility] | + + + + | 2021-10-31 00:00 | NYSTATIN | [facility] | + + + + | 2022-03-13 00:00 | NYSTATIN | [facility] | + + + + | 2022-04-24 00:00 | NYSTATIN | [facility] | + + + + | 2022-05-06 00:00 | NYSTATIN | [facility] | + + + + | 2022-06-06 00:00 | NYSTATIN | [facility] | + + + + | 2022-08-17 00:00 | NYSTATIN | [facility] | + + + + | 2021-09-08 00:00 | ASCORBIC ACID | [facility] | + + + + | 2021-10-31 00:00 | ASCORBIC ACID | [facility] | + + + + | 2022-03-13 00:00 | ASCORBIC ACID | [facility] | + + + + | 2022-04-24 00:00 | ASCORBIC ACID | [facility] | + + + + | 2022-05-06 00:00 | ASCORBIC ACID | [facility] | + + + + | 2022-06-06 00:00 | ASCORBIC ACID | [facility] | + + + + | 2022-08-17 00:00 | ASCORBIC ACID | [facility] | + + + + | 2022-03-13 00:00 | CEFPODOXIME PROXETIL | [facility] | + + + + | 2022-04-24 00:00 | CEPHALEXIN MONOHYDRATE | [facility] | + + + + | 2022-05-06 00:00 | CEPHALEXIN MONOHYDRATE | [facility] | + + + + | 2022-06-06 00:00 | CEPHALEXIN MONOHYDRATE | [facility] | + + + + | 2022-08-17 00:00 | CEPHALEXIN MONOHYDRATE | [facility] | + + + + | 2018-06-10 00:00 | CEPHALEXIN | [facility] | + + + + | 2018-06-10 00:00 | CEPHALEXIN | [facility] | + + + + | 2021-10-31 00:00 | CEPHALEXIN | [facility] | + + + + | 2021-07-05 00:00 | CIPROFLOXACIN HCL | [facility] | + + + + | 2021-07-05 00:00 | CIPROFLOXACIN HCL | [facility] | + + + + | 2021-09-08 00:00 | GABAPENTIN | [facility] | + + + + | 2021-10-31 00:00 | GABAPENTIN | [facility] | + + + + | 2022-03-13 00:00 | GABAPENTIN | [facility] | + + + + | 2022-04-24 00:00 | GABAPENTIN | [facility] | + + + + | 2022-05-06 00:00 | GABAPENTIN | [facility] | + + + + | 2022-06-06 00:00 | GABAPENTIN | [facility] | + + + + | 2022-08-17 00:00 | GABAPENTIN | [facility] | + + + + | 2020-11-13 00:00 | GABAPENTIN | [facility] | + + + + | 2021-09-08 00:00 | GABAPENTIN | [facility] | + + + + | 2021-10-31 00:00 | GABAPENTIN | [facility] | + + + + | 2022-03-13 00:00 | GABAPENTIN | [facility] | + + + + | 2022-04-24 00:00 | GABAPENTIN | [facility] | + + + + | 2022-05-06 00:00 | GABAPENTIN | [facility] | + + + + | 2022-06-06 00:00 | GABAPENTIN | [facility] | + + + + | 2022-08-17 00:00 | GABAPENTIN | [facility] | + + + + | 2019-11-20 00:00 | LEVOFLOXACIN | [facility] | + + + + | 2019-11-20 00:00 | LEVOFLOXACIN | [facility] | + + + + | 2021-09-08 00:00 | LORATADINE | [facility] | + + + + | 2021-10-31 00:00 | LORATADINE | [facility] | + + + + | 2022-03-13 00:00 | LORATADINE | [facility] | + + + + | 2022-04-24 00:00 | LORATADINE | [facility] | + + + + | 2022-05-06 00:00 | LORATADINE | [facility] | + + + + | 2022-06-06 00:00 | LORATADINE | [facility] | + + + + | 2022-08-17 00:00 | LORATADINE | [facility] | + + + + | 2021-10-31 00:00 | SENNOSIDES | [facility] | + + + + | 2021-10-31 00:00 | SENNOSIDES | [facility] | + + + + | 2022-03-13 00:00 | SENNOSIDES | [facility] | + + + + | 2022-03-13 00:00 | SENNOSIDES | [facility] | + + + + | 2021-09-08 00:00 | TIZANIDINE HCL | [facility] | + + + + | 2021-10-31 00:00 | TIZANIDINE HCL | [facility] | + + + + | 2022-03-13 00:00 | TIZANIDINE HCL | [facility] | + + + + | 2022-04-24 00:00 | TIZANIDINE HCL | [facility] | + + + + | 2022-05-06 00:00 | TIZANIDINE HCL | [facility] | + + + + | 2022-06-06 00:00 | TIZANIDINE HCL | [facility] | + + + + | 2022-08-17 00:00 | TIZANIDINE HCL | [facility] | + + + + | 2018-06-10 00:00 | METRONIDAZOLE | [facility] | + + + + | 2018-06-10 00:00 | METRONIDAZOLE | [facility] | + + + + | 2019-03-28 00:00 | NICOTINE POLACRILEX | [facility] | + + + + | 2019-03-28 00:00 | NICOTINE POLACRILEX | [facility] | + + + + | 2021-07-05 00:00 | NICOTINE POLACRILEX | [facility] | + + + + | 2021-07-05 00:00 | NICOTINE POLACRILEX | [facility] | + + + + | 2021-09-08 00:00 | Calcium Carbonate/Vitamin | [facility] | | | D3 | | + + + + | 2021-10-31 00:00 | Calcium Carbonate/Vitamin | [facility] | | | D3 | | + + + + | 2022-03-13 00:00 | Calcium Carbonate/Vitamin | [facility] | | | D3 | | + + + + | 2022-04-24 00:00 | Calcium Carbonate/Vitamin | [facility] | | | D3 | | + + + + | 2022-05-06 00:00 | Calcium Carbonate/Vitamin | [facility] | | | D3 | | + + + + | 2022-06-06 00:00 | Calcium Carbonate/Vitamin | [facility] | | | D3 | | + + + + | 2022-08-17 00:00 | Calcium Carbonate/Vitamin | [facility] | | | D3 | | + + + + | 2022-04-24 00:00 | LACTULOSE | [facility] | + + + + | 2022-04-24 00:00 | LACTULOSE | [facility] | + + + + | 2022-08-17 00:00 | ATORVASTATIN CALCIUM | [facility] | + + + + | 2021-09-08 00:00 | NYSTATIN | [facility] | + + + + | 2021-09-08 00:00 | WARFARIN SODIUM | [facility] | + + + + | 2021-10-31 00:00 | WARFARIN SODIUM | [facility] | + + + + | 2022-03-13 00:00 | WARFARIN SODIUM | [facility] | + + + + | 2022-04-24 00:00 | WARFARIN SODIUM | [facility] | + + + + | 2022-05-06 00:00 | WARFARIN SODIUM | [facility] | + + + + | 2022-06-06 00:00 | WARFARIN SODIUM | [facility] | + + + + | 2022-08-17 00:00 | WARFARIN SODIUM | [facility] | + + + + | 2021-09-08 00:00 | Diclofenac Sodium | [facility] | + + + + | 2021-10-31 00:00 | Diclofenac Sodium | [facility] | + + + + | 2022-03-13 00:00 | Diclofenac Sodium | [facility] | + + + + | 2022-04-24 00:00 | Diclofenac Sodium | [facility] | + + + + | 2022-05-06 00:00 | Diclofenac Sodium | [facility] | + + + + | 2022-06-06 00:00 | Diclofenac Sodium | [facility] | + + + + | 2022-08-17 00:00 | Diclofenac Sodium | [facility] | + + + + | 2021-09-08 00:00 | TRAZODONE HCL | [facility] | + + + + | 2021-10-31 00:00 | TRAZODONE HCL | [facility] | + + + + | 2022-03-13 00:00 | TRAZODONE HCL | [facility] | + + + + | 2022-04-24 00:00 | TRAZODONE HCL | [facility] | + + + + | 2022-05-06 00:00 | TRAZODONE HCL | [facility] | + + + + | 2022-06-06 00:00 | TRAZODONE HCL | [facility] | + + + + | 2022-08-17 00:00 | TRAZODONE HCL | [facility] | + + + + | 2020-11-13 00:00 | HYDROCODONE | [facility] | | | BIT/ACETAMINOPHEN | | + + + + | 2021-09-08 00:00 | HYDROCODONE | [facility] | | | BIT/ACETAMINOPHEN | | + + + + | 2021-10-31 00:00 | HYDROCODONE | [facility] | | | BIT/ACETAMINOPHEN | | + + + + | 2022-03-13 00:00 | HYDROCODONE | [facility] | | | BIT/ACETAMINOPHEN | | + + + + | 2022-04-24 00:00 | HYDROCODONE | [facility] | | | BIT/ACETAMINOPHEN | | + + + + | 2022-05-06 00:00 | HYDROCODONE | [facility] | | | BIT/ACETAMINOPHEN | | + + + + | 2022-06-06 00:00 | HYDROCODONE | [facility] | | | BIT/ACETAMINOPHEN | | + + + + | 2022-08-17 00:00 | HYDROCODONE | [facility] | | | BIT/ACETAMINOPHEN | | + + + + | 2022-03-13 00:00 | METFORMIN HCL | [facility] | + + + + | 2022-04-24 00:00 | METFORMIN HCL | [facility] | + + + + | 2022-05-06 00:00 | METFORMIN HCL | [facility] | + + + + | 2022-06-06 00:00 | METFORMIN HCL | [facility] | + + + + | 2022-08-17 00:00 | METFORMIN HCL | [facility] | + + + + | 2021-10-31 00:00 | METFORMIN HCL | [facility] | + + + + | 2021-07-05 00:00 | OXYBUTYNIN CHLORIDE | [facility] | + + + + | 2021-07-05 00:00 | OXYBUTYNIN CHLORIDE | [facility] | + + + + | 2022-04-24 00:00 | POLYETHYLENE GLYCOL 3350 | [facility] | + + + + | 2022-05-06 00:00 | POLYETHYLENE GLYCOL 3350 | [facility] | + + + + | 2022-06-06 00:00 | POLYETHYLENE GLYCOL 3350 | [facility] | + + + + | 2022-08-17 00:00 | POLYETHYLENE GLYCOL 3350 | [facility] | + + + + | 2021-09-08 00:00 | MORPHINE SULFATE | [facility] | + + + + | 2021-10-31 00:00 | MORPHINE SULFATE | [facility] | + + + + | 2022-03-13 00:00 | MORPHINE SULFATE | [facility] | + + + + | 2022-04-24 00:00 | MORPHINE SULFATE | [facility] | + + + + | 2022-05-06 00:00 | MORPHINE SULFATE | [facility] | + + + + | 2022-06-06 00:00 | MORPHINE SULFATE | [facility] | + + + + | 2022-08-17 00:00 | MORPHINE SULFATE | [facility] | + + + + | 2021-09-08 00:00 | MIDODRINE HCL | [facility] | + + + + | 2021-10-31 00:00 | MIDODRINE HCL | [facility] | + + + + | 2022-03-13 00:00 | MIDODRINE HCL | [facility] | + + + + | 2022-04-24 00:00 | MIDODRINE HCL | [facility] | + + + + | 2022-05-06 00:00 | MIDODRINE HCL | [facility] | + + + + | 2022-06-06 00:00 | MIDODRINE HCL | [facility] | + + + + | 2022-08-17 00:00 | MIDODRINE HCL | [facility] | + + + + | 2020-11-13 00:00 | MIDODRINE HCL | [facility] | + + + + Problems + + + + | date | description | facility | + + + + | 2015-09-22 00:00 | Dislodged Hancock catheter | [facility] | + + + + | 2015-09-22 00:00 | Dislodged Hancock catheter | [facility] | + + + + | 2017-12-18 00:00 | Suprapubic catheter | [facility] | | | dysfunction | | + + + + | 2017-12-18 00:00 | Suprapubic catheter | [facility] | | | dysfunction | | + + + + | 2018-08-06 00:00 | Fracture of distal end of | [facility] | | | femur | | + + + + | 2018-08-06 00:00 | Fracture of distal end of | [facility] | | | femur | | + + + + | 2019-03-24 00:00 | Problem with Hancock | [facility] | | | catheter | | + + + + | 2019-03-24 00:00 | Problem with Hancock | [facility] | | | catheter | | + + + + | 2019-03-26 00:00 | Autonomic dysreflexia | [facility] | + + + + | 2019-03-26 00:00 | Autonomic dysreflexia | [facility] | + + + + | 2019-03-26 00:00 | Congestive heart failure | [facility] | + + + + | 2019-03-26 00:00 | Congestive heart failure | [facility] | + + + + | 2019-03-26 00:00 | Complicated urinary tract | [facility] | | | infection | | + + + + | 2019-03-26 00:00 | Complicated urinary tract | [facility] | | | infection | | + + + + | 2019-06-07 00:00 | Encounter for medical | [facility] | | | screening examination | | + + + + | 2019-06-07 00:00 | Encounter for medical | [facility] | | | screening examination | | + + + + | 2019-09-23 00:00 | Obstruction of Hancock | [facility] | | | catheter | | + + + + | 2019-09-23 00:00 | Obstruction of Hancock | [facility] | | | catheter | | + + + + | 2019-10-14 00:00 | Pressure injury of skin | [facility] | + + + + | 2019-10-14 00:00 | Pressure injury of skin | [facility] | + + + + | 2019-10-14 00:00 | Muscle spasms of both | [facility] | | | lower extremities | | + + + + | 2019-10-14 00:00 | Muscle spasms of both | [facility] | | | lower extremities | | [...] 2020-10-07 00:00 | Urinary tract infection | [facility] | + + + + | 2020-10-07 00:00 | Urinary tract infection | [facility] | + + + + | 2020-10-07 00:30 | URINARY TRACT INFECTION, | [facility] | | | SITE NOT SPECIFIED | | + + + + | 2020-10-07 00:30 | RAE[facility] COMPL OF OTHER | [facility] | | | URINARY CATHETER, INITIAL | | | | ENCOUNTER | | + + + + | 2020-10-07 00:30 | RESIDENTIAL (CURRENT) USE OF | [facility] | | | ASPIRIN | | + + + + | 2020-10-07 00:30 | OTHER RESIDENTIAL (CURRENT) | [facility] | | | DRUG THERAPY | | + + + + | 2020-10-07 00:30 | BEE ALLERGY STATUS | [facility] | + + + + | 2020-11-11 00:00 | Severe sepsis | [facility] | + + + + | 2020-11-11 00:00 | Severe sepsis | [facility] | + + + + | 2021-07-03 00:00 | Sepsis | [facility] | + + + + | 2021-07-03 00:00 | Sepsis | [facility] | + + + + | 2021-07-03 00:00 | Infection due to severe | [facility] | | | acute respiratory syndrome | | | | coronavirus 2 (SARS-CoV-2) | | + + + + | 2021-07-03 00:00 | Infection due to severe | [facility] | | | acute respiratory syndrome | [...] + + | 2021-09-03 11:08 | OTHER ACCOUNTING GENERALIST (CURRENT) | [facility] | | | DRUG THERAPY | | + + + + | 2021-09-03 11:08 | OTHER INSECT ALLERGY | [facility] | | | STATUS | | + + + + | 2021-09-03 11:08 | PRESENCE OF UROGENITAL | [facility] | | | IMPLANTS | | + + + + | 2021-10-29 00:00 | Hyperglycemia due to | [facility] | | | diabetes mellitus | | + + + + | 2021-10-29 00:00 | Hyperglycemia due to | [facility] | | | diabetes mellitus | | [...] + + | 2021-10-29 01:33 | OTHER RESIDENTIAL (CURRENT) | [facility] | | | DRUG [...] + + + | 2022-03-10 16:24 | RESIDENTIAL (CURRENT) USE OF | [facility] | | | ORAL HYPOGLYCEMIC DRUGS | | + + + + | 2022-03-10 16:24 | OTHER RESIDENTIAL (CURRENT) | [facility] | | | DRUG [...] + + | 2022-04-20 01:41 | OTHER ACCOUNTING GENERALIST (CURRENT) | [facility] | | | DRUG [...] + + | 2022-04-24 18:06 | OTHER RESIDENTIAL (CURRENT) | [facility] | | | DRUG [...] 2022-08-17 00:00 | Recurrent urinary tract | [facility] | | | infection | | + + + + | 2022-08-17 00:00 | Presence of suprapubic | [facility] | | | catheter | | + [...] + + + | 2022-08-17 13:18 | RESIDENTIAL (CURRENT) USE OF | [facility] | | | ORAL HYPOGLYCEMIC DRUGS | | + + + + | 2022-08-17 13:18 | OTHER ACCOUNTING GENERALIST (CURRENT) | [facility] | | | DRUG [...] 2021-07-03 00:00 | INTRODUCE OF OT | [facility] | | | ANTI-INFECT INTO PERIPH | | | | VEIN, PERC APPROACH | | + + + + | 2022-04-20 00:00 | INTRODUCE OF OT | [facility] | | | ANTI-INFECT INTO PERIPH | | | | VEIN, PERC APPROACH | | + + + + | 2021-07-03 00:00 | ISOLATION | [facility] | + + + + Results/Labs +--------+--------+ [...] (missing) | | (unavailable | 22:45:08 | Maneulito | | | | | ) | [...] (missing) | | (unavailable | 17:48:07 | Maneulito | | | | | ) | [...]
--- OUTSIDE RECORDS SUMMARY | ~2022-10-09 | XMS | Continuity of Care Document ---
Demographics + + + | Address | [id number] [place] [address] RD | | | [place] [id number] | + + + | Preferred Language | Unknown | + + + | Marital Status | Never | + + + | Advent Affiliation | Unknown | + + + | Race | or | + + + | Ethnic Group | Not or | + + + Author + + + | Author | [facility] | + + + | Organization | [facility] | + + + | Address | [address] | | | [place] [address] | + + + | Phone | | + + + Care Team Providers + + + + | Care Forest Fire Prevention Manager Name | Role | Phone | [...] | (no date) | Wasp venom | [facility] | (no reaction) | (no severity) | | | | [facility] | | | [facility] | | | + + + + + + Encounters No information. Functional Status No information. Immunizations + + + + | date | description | facility | + + + + | 2017-12-18 00:00 | Influenza, Seasonal, | [facility] | | | Injectable, Preservative | | | | Free | | + + + + | 2017-12-18 00:00 | Influenza, Seasonal, | [facility] | | | Injectable, Preservative | | | | Free | | + + + + | 2021-09-08 00:00 | Influenza, Injectable, | [facility] | | | Quadrivalent, Preservative | | + + + + | 2021-10-31 00:00 | Influenza, Injectable, | [facility] | | | Quadrivalent, Preservative | | + + + + | 2022-03-13 00:00 | Influenza, Injectable, | [facility] | | | Quadrivalent, Preservative | | + + + + | 2022-04-24 00:00 | Influenza, Injectable, | [facility] | | | Quadrivalent, Preservative | | + + + + | 2022-05-06 00:00 | Influenza, Injectable, | [facility] | | | Quadrivalent, Preservative | | + + + + | 2022-06-06 00:00 | Influenza, Injectable, | [facility] | | | Quadrivalent, Preservative | | + + + + | 2022-08-17 00:00 | Influenza, Injectable, | [facility] | | | Quadrivalent, Preservative | | + + + + | 2022-06-06 00:00 | Botulinum Antitoxin | [facility] | + + + + Medications + + + + | date | description | facility | + + + + | 2022-06-06 00:00 | DIAZEPAM | [facility] | + + + + | 2022-08-17 00:00 | DIAZEPAM | [facility] | + + + + | 2021-10-31 00:00 | POLYETHYLENE GLYCOL 3350 | [facility] | + + + + | 2021-10-31 00:00 | POLYETHYLENE GLYCOL 3350 | [facility] | + + + + | 2022-03-13 00:00 | POLYETHYLENE GLYCOL 3350 | [facility] | + + + + | 2020-11-13 00:00 | DIPHENOXYLATE HCL/ATROPINE | [facility] | | | | | + + + + | 2021-09-08 00:00 | DIPHENOXYLATE HCL/ATROPINE | [facility] | | | | | + + + + | 2021-10-31 00:00 | DIPHENOXYLATE HCL/ATROPINE | [facility] | | | | | + + + + | 2022-03-13 00:00 | DIPHENOXYLATE HCL/ATROPINE | [facility] | | | | | + + + + | 2022-04-24 00:00 | DIPHENOXYLATE HCL/ATROPINE | [facility] | | | | | + + + + | 2022-05-06 00:00 | DIPHENOXYLATE HCL/ATROPINE | [facility] | | | | | + + + + | 2022-06-06 00:00 | DIPHENOXYLATE HCL/ATROPINE | [facility] | | | | | + + + + | 2022-08-17 00:00 | DIPHENOXYLATE HCL/ATROPINE | [facility] | | | | | + + + + | 2021-10-31 00:00 | DIPHENOXYLATE HCL/ATROPINE | [facility] | | | | | + + + + | 2022-03-13 00:00 | DIPHENOXYLATE HCL/ATROPINE | [facility] | | | | | + + + + | 2022-04-24 00:00 | DIPHENOXYLATE HCL/ATROPINE | [facility] | | | | | + + + + | 2022-05-06 00:00 | DIPHENOXYLATE HCL/ATROPINE | [facility] | | | | | + + + + | 2022-06-06 00:00 | DIPHENOXYLATE HCL/ATROPINE | [facility] | | | | | + + + + | 2022-08-17 00:00 | DIPHENOXYLATE HCL/ATROPINE | [facility] | | | | | + + + + | 2021-09-08 00:00 | TIZANIDINE HCL | [facility] | + + + + | 2021-10-31 00:00 | TIZANIDINE HCL | [facility] | + + + + | 2022-03-13 00:00 | TIZANIDINE HCL | [facility] | + + + + | 2022-04-24 00:00 | TIZANIDINE HCL | [facility] | + + + + | 2022-05-06 00:00 | TIZANIDINE HCL | [facility] | + + + + | 2022-06-06 00:00 | TIZANIDINE HCL | [facility] | + + + + | 2022-08-17 00:00 | TIZANIDINE HCL | [facility] | + + + + | 2022-06-06 00:00 | DOXYCYCLINE HYCLATE | [facility] | + + + + | 2020-11-13 00:00 | BACLOFEN | [facility] | + + + + | 2021-09-08 00:00 | BACLOFEN | [facility] | + + + + | 2021-10-31 00:00 | BACLOFEN | [facility] | + + + + | 2022-03-13 00:00 | BACLOFEN | [facility] | + + + + | 2022-04-24 00:00 | BACLOFEN | [facility] | + + + + | 2022-05-06 00:00 | BACLOFEN | [facility] | + + + + | 2022-06-06 00:00 | BACLOFEN | [facility] | + + + + | 2022-08-17 00:00 | BACLOFEN | [facility] | + + + + | 2022-03-13 00:00 | BACLOFEN | [facility] | + + + + | 2022-04-24 00:00 | BACLOFEN | [facility] | + + + + | 2022-05-06 00:00 | BACLOFEN | [facility] | + + + + | 2022-06-06 00:00 | BACLOFEN | [facility] | + + + + | 2022-08-17 00:00 | BACLOFEN | [facility] | + + + + | 2022-04-24 00:00 | DIAZEPAM | [facility] | + + + + | 2022-04-24 00:00 | DIAZEPAM | [facility] | + + + + | 2021-09-08 00:00 | OMEPRAZOLE | [facility] | + + + + | 2021-10-31 00:00 | OMEPRAZOLE | [facility] | + + + + | 2022-03-13 00:00 | OMEPRAZOLE | [facility] | + + + + | 2022-04-24 00:00 | OMEPRAZOLE | [facility] | + + + + | 2022-05-06 00:00 | OMEPRAZOLE | [facility] | + + + + | 2022-06-06 00:00 | OMEPRAZOLE | [facility] | + + + + | 2022-08-17 00:00 | OMEPRAZOLE | [facility] | + + + + | 2021-09-08 00:00 | ACETAMINOPHEN | [facility] | + + + + | 2021-10-31 00:00 | ACETAMINOPHEN | [facility] | + + + + | 2022-03-13 00:00 | ACETAMINOPHEN | [facility] | + + + + | 2022-04-24 00:00 | ACETAMINOPHEN | [facility] | + + + + | 2022-05-06 00:00 | ACETAMINOPHEN | [facility] | + + + + | 2022-06-06 00:00 | ACETAMINOPHEN | [facility] | + + + + | 2022-08-17 00:00 | ACETAMINOPHEN | [facility] | + + + + | 2021-09-08 00:00 | BISACODYL | [facility] | + + + + | 2021-10-31 00:00 | BISACODYL | [facility] | + + + + | 2022-03-13 00:00 | BISACODYL | [facility] | + + + + | 2022-03-13 00:00 | BISACODYL | [facility] | + + + + | 2022-04-24 00:00 | BISACODYL | [facility] | + + + + | 2022-05-06 00:00 | BISACODYL | [facility] | + + + + | 2022-06-06 00:00 | BISACODYL | [facility] | + + + + | 2022-08-17 00:00 | BISACODYL | [facility] | + + + + | 2021-10-31 00:00 | SIMETHICONE | [facility] | + + + + | 2021-10-31 00:00 | SIMETHICONE | [facility] | + + + + | 2021-09-08 00:00 | CEPHALEXIN | [facility] | + + + + | 2021-10-31 00:00 | CEPHALEXIN | [facility] | + + + + | 2022-03-13 00:00 | CEPHALEXIN | [facility] | + + + + | 2022-04-24 00:00 | CEPHALEXIN | [facility] | + + + + | 2022-05-06 00:00 | CEPHALEXIN | [facility] | + + + + | 2022-06-06 00:00 | CEPHALEXIN | [facility] | + + + + | 2022-08-17 00:00 | CEPHALEXIN | [facility] | + + + + | 2021-10-31 00:00 | NYSTATIN | [facility] | + + + + | 2022-03-13 00:00 | NYSTATIN | [facility] | + + + + | 2022-04-24 00:00 | NYSTATIN | [facility] | + + + + | 2022-05-06 00:00 | NYSTATIN | [facility] | + + + + | 2022-06-06 00:00 | NYSTATIN | [facility] | + + + + | 2022-08-17 00:00 | NYSTATIN | [facility] | + + + + | 2021-09-08 00:00 | ASCORBIC ACID | [facility] | + + + + | 2021-10-31 00:00 | ASCORBIC ACID | [facility] | + + + + | 2022-03-13 00:00 | ASCORBIC ACID | [facility] | + + + + | 2022-04-24 00:00 | ASCORBIC ACID | [facility] | + + + + | 2022-05-06 00:00 | ASCORBIC ACID | [facility] | + + + + | 2022-06-06 00:00 | ASCORBIC ACID | [facility] | + + + + | 2022-08-17 00:00 | ASCORBIC ACID | [facility] | + + + + | 2022-03-13 00:00 | CEFPODOXIME PROXETIL | [facility] | + + + + | 2022-04-24 00:00 | CEPHALEXIN MONOHYDRATE | [facility] | + + + + | 2022-05-06 00:00 | CEPHALEXIN MONOHYDRATE | [facility] | + + + + | 2022-06-06 00:00 | CEPHALEXIN MONOHYDRATE | [facility] | + + + + | 2022-08-17 00:00 | CEPHALEXIN MONOHYDRATE | [facility] | + + + + | 2018-06-10 00:00 | CEPHALEXIN | [facility] | + + + + | 2018-06-10 00:00 | CEPHALEXIN | [facility] | + + + + | 2021-10-31 00:00 | CEPHALEXIN | [facility] | + + + + | 2021-07-05 00:00 | CIPROFLOXACIN HCL | [facility] | + + + + | 2021-07-05 00:00 | CIPROFLOXACIN HCL | [facility] | + + + + | 2021-09-08 00:00 | GABAPENTIN | [facility] | + + + + | 2021-10-31 00:00 | GABAPENTIN | [facility] | + + + + | 2022-03-13 00:00 | GABAPENTIN | [facility] | + + + + | 2022-04-24 00:00 | GABAPENTIN | [facility] | + + + + | 2022-05-06 00:00 | GABAPENTIN | [facility] | + + + + | 2022-06-06 00:00 | GABAPENTIN | [facility] | + + + + | 2022-08-17 00:00 | GABAPENTIN | [facility] | + + + + | 2020-11-13 00:00 | GABAPENTIN | [facility] | + + + + | 2021-09-08 00:00 | GABAPENTIN | [facility] | + + + + | 2021-10-31 00:00 | GABAPENTIN | [facility] | + + + + | 2022-03-13 00:00 | GABAPENTIN | [facility] | + + + + | 2022-04-24 00:00 | GABAPENTIN | [facility] | + + + + | 2022-05-06 00:00 | GABAPENTIN | [facility] | + + + + | 2022-06-06 00:00 | GABAPENTIN | [facility] | + + + + | 2022-08-17 00:00 | GABAPENTIN | [facility] | + + + + | 2019-11-20 00:00 | LEVOFLOXACIN | [facility] | + + + + | 2019-11-20 00:00 | LEVOFLOXACIN | [facility] | + + + + | 2021-09-08 00:00 | LORATADINE | [facility] | + + + + | 2021-10-31 00:00 | LORATADINE | [facility] | + + + + | 2022-03-13 00:00 | LORATADINE | [facility] | + + + + | 2022-04-24 00:00 | LORATADINE | [facility] | + + + + | 2022-05-06 00:00 | LORATADINE | [facility] | + + + + | 2022-06-06 00:00 | LORATADINE | [facility] | + + + + | 2022-08-17 00:00 | LORATADINE | [facility] | + + + + | 2021-10-31 00:00 | SENNOSIDES | [facility] | + + + + | 2021-10-31 00:00 | SENNOSIDES | [facility] | + + + + | 2022-03-13 00:00 | SENNOSIDES | [facility] | + + + + | 2022-03-13 00:00 | SENNOSIDES | [facility] | + + + + | 2021-09-08 00:00 | TIZANIDINE HCL | [facility] | + + + + | 2021-10-31 00:00 | TIZANIDINE HCL | [facility] | + + + + | 2022-03-13 00:00 | TIZANIDINE HCL | [facility] | + + + + | 2022-04-24 00:00 | TIZANIDINE HCL | [facility] | + + + + | 2022-05-06 00:00 | TIZANIDINE HCL | [facility] | + + + + | 2022-06-06 00:00 | TIZANIDINE HCL | [facility] | + + + + | 2022-08-17 00:00 | TIZANIDINE HCL | [facility] | + + + + | 2018-06-10 00:00 | METRONIDAZOLE | [facility] | + + + + | 2018-06-10 00:00 | METRONIDAZOLE | [facility] | + + + + | 2019-03-28 00:00 | NICOTINE POLACRILEX | [facility] | + + + + | 2019-03-28 00:00 | NICOTINE POLACRILEX | [facility] | + + + + | 2021-07-05 00:00 | NICOTINE POLACRILEX | [facility] | + + + + | 2021-07-05 00:00 | NICOTINE POLACRILEX | [facility] | + + + + | 2021-09-08 00:00 | Calcium Carbonate/Vitamin | [facility] | | | D3 | | + + + + | 2021-10-31 00:00 | Calcium Carbonate/Vitamin | [facility] | | | D3 | | + + + + | 2022-03-13 00:00 | Calcium Carbonate/Vitamin | [facility] | | | D3 | | + + + + | 2022-04-24 00:00 | Calcium Carbonate/Vitamin | [facility] | | | D3 | | + + + + | 2022-05-06 00:00 | Calcium Carbonate/Vitamin | [facility] | | | D3 | | + + + + | 2022-06-06 00:00 | Calcium Carbonate/Vitamin | [facility] | | | D3 | | + + + + | 2022-08-17 00:00 | Calcium Carbonate/Vitamin | [facility] | | | D3 | | + + + + | 2022-04-24 00:00 | LACTULOSE | [facility] | + + + + | 2022-04-24 00:00 | LACTULOSE | [facility] | + + + + | 2022-08-17 00:00 | ATORVASTATIN CALCIUM | [facility] | + + + + | 2021-09-08 00:00 | NYSTATIN | [facility] | + + + + | 2021-09-08 00:00 | WARFARIN SODIUM | [facility] | + + + + | 2021-10-31 00:00 | WARFARIN SODIUM | [facility] | + + + + | 2022-03-13 00:00 | WARFARIN SODIUM | [facility] | + + + + | 2022-04-24 00:00 | WARFARIN SODIUM | [facility] | + + + + | 2022-05-06 00:00 | WARFARIN SODIUM | [facility] | + + + + | 2022-06-06 00:00 | WARFARIN SODIUM | [facility] | + + + + | 2022-08-17 00:00 | WARFARIN SODIUM | [facility] | + + + + | 2021-09-08 00:00 | Diclofenac Sodium | [facility] | + + + + | 2021-10-31 00:00 | Diclofenac Sodium | [facility] | + + + + | 2022-03-13 00:00 | Diclofenac Sodium | [facility] | + + + + | 2022-04-24 00:00 | Diclofenac Sodium | [facility] | + + + + | 2022-05-06 00:00 | Diclofenac Sodium | [facility] | + + + + | 2022-06-06 00:00 | Diclofenac Sodium | [facility] | + + + + | 2022-08-17 00:00 | Diclofenac Sodium | [facility] | + + + + | 2021-09-08 00:00 | TRAZODONE HCL | [facility] | + + + + | 2021-10-31 00:00 | TRAZODONE HCL | [facility] | + + + + | 2022-03-13 00:00 | TRAZODONE HCL | [facility] | + + + + | 2022-04-24 00:00 | TRAZODONE HCL | [facility] | + + + + | 2022-05-06 00:00 | TRAZODONE HCL | [facility] | + + + + | 2022-06-06 00:00 | TRAZODONE HCL | [facility] | + + + + | 2022-08-17 00:00 | TRAZODONE HCL | [facility] | + + + + | 2020-11-13 00:00 | HYDROCODONE | [facility] | | | BIT/ACETAMINOPHEN | | + + + + | 2021-09-08 00:00 | HYDROCODONE | [facility] | | | BIT/ACETAMINOPHEN | | + + + + | 2021-10-31 00:00 | HYDROCODONE | [facility] | | | BIT/ACETAMINOPHEN | | + + + + | 2022-03-13 00:00 | HYDROCODONE | [facility] | | | BIT/ACETAMINOPHEN | | + + + + | 2022-04-24 00:00 | HYDROCODONE | [facility] | | | BIT/ACETAMINOPHEN | | + + + + | 2022-05-06 00:00 | HYDROCODONE | [facility] | | | BIT/ACETAMINOPHEN | | + + + + | 2022-06-06 00:00 | HYDROCODONE | [facility] | | | BIT/ACETAMINOPHEN | | + + + + | 2022-08-17 00:00 | HYDROCODONE | [facility] | | | BIT/ACETAMINOPHEN | | + + + + | 2022-03-13 00:00 | METFORMIN HCL | [facility] | + + + + | 2022-04-24 00:00 | METFORMIN HCL | [facility] | + + + + | 2022-05-06 00:00 | METFORMIN HCL | [facility] | + + + + | 2022-06-06 00:00 | METFORMIN HCL | [facility] | + + + + | 2022-08-17 00:00 | METFORMIN HCL | [facility] | + + + + | 2021-10-31 00:00 | METFORMIN HCL | [facility] | + + + + | 2021-07-05 00:00 | OXYBUTYNIN CHLORIDE | [facility] | + + + + | 2021-07-05 00:00 | OXYBUTYNIN CHLORIDE | [facility] | + + + + | 2022-04-24 00:00 | POLYETHYLENE GLYCOL 3350 | [facility] | + + + + | 2022-05-06 00:00 | POLYETHYLENE GLYCOL 3350 | [facility] | + + + + | 2022-06-06 00:00 | POLYETHYLENE GLYCOL 3350 | [facility] | + + + + | 2022-08-17 00:00 | POLYETHYLENE GLYCOL 3350 | [facility] | + + + + | 2021-09-08 00:00 | MORPHINE SULFATE | [facility] | + + + + | 2021-10-31 00:00 | MORPHINE SULFATE | [facility] | + + + + | 2022-03-13 00:00 | MORPHINE SULFATE | [facility] | + + + + | 2022-04-24 00:00 | MORPHINE SULFATE | [facility] | + + + + | 2022-05-06 00:00 | MORPHINE SULFATE | [facility] | + + + + | 2022-06-06 00:00 | MORPHINE SULFATE | [facility] | + + + + | 2022-08-17 00:00 | MORPHINE SULFATE | [facility] | + + + + | 2021-09-08 00:00 | MIDODRINE HCL | [facility] | + + + + | 2021-10-31 00:00 | MIDODRINE HCL | [facility] | + + + + | 2022-03-13 00:00 | MIDODRINE HCL | [facility] | + + + + | 2022-04-24 00:00 | MIDODRINE HCL | [facility] | + + + + | 2022-05-06 00:00 | MIDODRINE HCL | [facility] | + + + + | 2022-06-06 00:00 | MIDODRINE HCL | [facility] | + + + + | 2022-08-17 00:00 | MIDODRINE HCL | [facility] | + + + + | 2020-11-13 00:00 | MIDODRINE HCL | [facility] | + + + + Problems + + + + | date | description | facility | + + + + | 2015-09-22 00:00 | Dislodged Hancock catheter | [facility] | + + + + | 2015-09-22 00:00 | Dislodged Hancock catheter | [facility] | + + + + | 2017-12-18 00:00 | Suprapubic catheter | [facility] | | | dysfunction | | + + + + | 2017-12-18 00:00 | Suprapubic catheter | [facility] | | | dysfunction | | + + + + | 2018-08-06 00:00 | Fracture of distal end of | [facility] | | | femur | | + + + + | 2018-08-06 00:00 | Fracture of distal end of | [facility] | | | femur | | + + + + | 2019-03-24 00:00 | Problem with Hancock | [facility] | | | catheter | | + + + + | 2019-03-24 00:00 | Problem with Hancock | [facility] | | | catheter | | + + + + | 2019-03-26 00:00 | Autonomic dysreflexia | [facility] | + + + + | 2019-03-26 00:00 | Autonomic dysreflexia | [facility] | + + + + | 2019-03-26 00:00 | Congestive heart failure | [facility] | + + + + | 2019-03-26 00:00 | Congestive heart failure | [facility] | + + + + | 2019-03-26 00:00 | Complicated urinary tract | [facility] | | | infection | | + + + + | 2019-03-26 00:00 | Complicated urinary tract | [facility] | | | infection | | + + + + | 2019-06-07 00:00 | Encounter for medical | [facility] | | | screening examination | | + + + + | 2019-06-07 00:00 | Encounter for medical | [facility] | | | screening examination | | + + + + | 2019-09-23 00:00 | Obstruction of Hancock | [facility] | | | catheter | | + + + + | 2019-09-23 00:00 | Obstruction of Hancock | [facility] | | | catheter | | + + + + | 2019-10-14 00:00 | Pressure injury of skin | [facility] | + + + + | 2019-10-14 00:00 | Pressure injury of skin | [facility] | + + + + | 2019-10-14 00:00 | Muscle spasms of both | [facility] | | | lower extremities | | + + + + | 2019-10-14 00:00 | Muscle spasms of both | [facility] | | | lower extremities | [...] 2020-10-07 00:00 | Urinary tract infection | [facility] | + + + + | 2020-10-07 00:00 | Urinary tract infection | [facility] | + + + + | 2020-10-07 00:30 | URINARY TRACT INFECTION, | [facility] | | | SITE NOT SPECIFIED | | + + + + | 2020-10-07 00:30 | RAEH COMPL OF OTHER | [facility] | | | URINARY CATHETER, INITIAL | | | | ENCOUNTER | | + + + + | 2020-10-07 00:30 | RETIREMENT (CURRENT) USE OF | [facility] | | | ASPIRIN | | + + + + | 2020-10-07 00:30 | OTHER RETIREMENT (CURRENT) | [facility] | | | DRUG THERAPY | | + + + + | 2020-10-07 00:30 | BEE ALLERGY STATUS | [facility] | + + + + | 2020-11-11 00:00 | Severe sepsis | [facility] | + + + + | 2020-11-11 00:00 | Severe sepsis | [facility] | + + + + | 2021-07-03 00:00 | Sepsis | [facility] | + + + + | 2021-07-03 00:00 | Sepsis | [facility] | + + + + | 2021-07-03 00:00 | Infection due to severe | [facility] | | | acute respiratory syndrome | | | | coronavirus 2 (SARS-CoV-2) | | + + + + | 2021-07-03 00:00 | Infection due to severe | [facility] | | | acute respiratory syndrome [...] + + | 2021-09-03 11:08 | OTHER MARKETING STRATEGY ANALYST (CURRENT) | [facility] | | | DRUG THERAPY | | + + + + | 2021-09-03 11:08 | OTHER INSECT ALLERGY | [facility] | | | STATUS | | + + + + | 2021-09-03 11:08 | PRESENCE OF UROGENITAL | [facility] | | | IMPLANTS | | + + + + | 2021-10-29 00:00 | Hyperglycemia due to | [facility] | | | diabetes mellitus | | + + + + | 2021-10-29 00:00 | Hyperglycemia due to | [facility] | | | diabetes mellitus | [...] + + | 2021-10-29 01:33 | OTHER RETIREMENT (CURRENT) | [facility] | | | DRUG [...] + + + | 2022-03-10 16:24 | RETIREMENT (CURRENT) USE OF | [facility] | | | ORAL HYPOGLYCEMIC DRUGS | | + + + + | 2022-03-10 16:24 | OTHER RETIREMENT (CURRENT) | [facility] | | | DRUG [...] + + | 2022-04-20 01:41 | OTHER MARKETING STRATEGY ANALYST (CURRENT) | [facility] | | | DRUG [...] + + | 2022-04-24 18:06 | OTHER RETIREMENT (CURRENT) | [facility] | | | DRUG [...] 2022-08-17 00:00 | Recurrent urinary tract | [facility] | | | infection | | + + + + | 2022-08-17 00:00 | Presence of suprapubic | [facility] | | | catheter | | [...] + + + | 2022-08-17 13:18 | RETIREMENT (CURRENT) USE OF | [facility] | | | [facility] | | + + + + | 2022-08-17 13:18 | OTHER MARKETING STRATEGY ANALYST (CURRENT) | [facility] | | | DRUG [...] 2021-07-03 00:00 | INTRODUCE OF OT | [facility] | | | ANTI-INFECT INTO PERIPH | | | | VEIN, PERC APPROACH | | + + + + | 2022-04-20 00:00 | INTRODUCE OF OT | [facility] | | | ANTI-INFECT INTO PERIPH | | | | VEIN, PERC APPROACH | | + + + + | 2021-07-03 00:00 | ISOLATION | [facility] | + + + + Results/Labs [...] (missing) | | (unavailable | 01:17:08 | Manueilto | | | | | ) | [...] (missing) | | (unavailable | 18:30:08 | Mnauelito | | | | | ) | [...] (missing) | | (unavailable | 17:48:07 | Manueltio | | | | | ) | [...]
[~2022-10-09 02:39] MED LIST changes: +ATORVASTATIN CA10 MG PO; +DOXYCYCLINE HY100 MG PO; +VALIUM2 MG PO
--- OUTSIDE RECORDS SUMMARY | 2022-10-09 02:42 | XMS ---
PreManage Notification: WILLY CASTILLO Security Manager Room Events No recent Security Events currently on file CRITERIA MET - LEANNEP CARE PROVIDERS -Suze- Dentist: Customer Account Coordinator [facility] Dental [facility] PHONE: [phone] TIMOTHY Garcia Physical Medicine \T\ Rehabilitation Current PHONE: Unknown Isaac Siddiqui Test Engine Evaluator/Screen Printing Supervisor 02/27/2022-Current PHONE: [phone] ARIANA AGOSTO Silverer 06/04/2018-Current PHONE: Unknown JAQUELINE [facility]/[place] 03/26/2019-[facility] PHONE: [phone] Kat has no Care Guidelines for this patient. Care History Medical/Surgical 09/24/2019 [facility] - PATIENT HAS AN APT WITH DR HUTCHISON-UROLOGIST 10/23/2019 06/20/2019 [facility] - PATIENT HAS AN APT WITH UROLOGIST DR HUTCHISON ON 06/26/2019 @ 1:00PM FOR SP TUBE CHANGE. 03/25/2019 [facility] - PATIENT HAS AN APT WITH DR HUTCHISON-UROLOGIST 03/26/2019 FOR ER FOLLOW UP. E.D. VISIT COUNT ([address] MO[address] [facility]. TOTAL 6 NOTE: Visits indicate total known visits. ED/UCC VISIT TRACKING (12 MO.) 10/09/2022 02:40 [facility] TYPE: Emergency COMPLAINT: - UNRESPONSIVE 08/17/2022 13:18 [facility] [place] TYPE: Emergency COMPLAINT: - POSS UTI DIAGNOSES: - Bee allergy status - Infection and inflammatory reaction due to other urinary catheter, initial encounter - [facility] (current) use of oral hypoglycemic drugs - Other halfway (current) drug therapy - Type 2 diabetes mellitus without complications - Urinary tract infection, site not specified 04/24/2022 18:06 [facility] [place] TYPE: Emergency COMPLAINT: - PAIN DIAGNOSES: - Constipation, unspecified - Contact with and (suspected) exposure to COVID-19 - Cramp and spasm - Other insect allergy status - Other halfway (current) drug therapy - Quadriplegia, unspecified 04/19/2022 22:33 [facility] [place] TYPE: Emergency COMPLAINT: - URINE PROBLEM 03/10/2022 12:54 [facility] [place] TYPE: Emergency COMPLAINT: - URINE PROBLEM 10/28/2021 22:20 [facility] [place] TYPE: Emergency COMPLAINT: - WEAKNESS INPATIENT VISIT TRACKING (12 MO.) 04/20/2022 01:41 [facility] [place] TYPE: Medical Surgical COMPLAINT: - SEVERE SEPSIS,UTI DIAGNOSES: - Autonomic dysreflexia - Autonomic dysreflexia - Bee allergy status - Bee allergy status - Constipation, unspecified - Constipation, unspecified - Contact with and (suspected) exposure to COVID-19 - Contact with and (suspected) exposure to COVID-19 - Cystitis, unspecified without hematuria - Infection and inflammatory reaction due to cystostomy catheter, initial encounter - Other ad terminal makeup operator (current) drug therapy - Other ad terminal makeup operator (current) drug therapy - Other specified postprocedural states - Other specified postprocedural states - Quadriplegia, unspecified - Quadriplegia, unspecified - Sepsis, unspecified organism - Severe sepsis without septic shock - Severe sepsis without septic shock - Type 2 diabetes mellitus without complications - Type 2 diabetes mellitus without complications - Urinary tract infection, site not specified - Urinary tract infection, site not specified 03/10/2022 16:24 [facility] [place] TYPE: Critical Care COMPLAINT: - SEPSIS, UTI, QUADRIPLEGIA DIAGNOSES: - Acidosis, unspecified - Acidosis, unspecified - Autonomic dysreflexia - Autonomic dysreflexia - Bee allergy status - Bee allergy status - Contact with and (suspected) exposure to COVID-19 - Contact with and (suspected) exposure to COVID-19 - Gastro-esophageal reflux disease without esophagitis - Gastro-esophageal reflux disease without esophagitis - Hypotension, unspecified - Hypotension, unspecified - Infection and inflammatory reaction due to cystostomy catheter, initial encounter - Infection and inflammatory reaction due to cystostomy catheter, initial encounter - [facility] (current) use of oral hypoglycemic drugs - [facility] (current) use of oral hypoglycemic drugs - Neurogenic bowel, not elsewhere classified - Neurogenic bowel, not elsewhere classified - Neuromuscular dysfunction of bladder, unspecified - Neuromuscular dysfunction of bladder, unspecified - Other ad terminal makeup operator (current) drug therapy - Other halfway (current) drug therapy - Other muscle spasm - Other muscle spasm - Other specified postprocedural states - Other specified postprocedural states - Proteus (mirabilis) (morganii) as the cause of diseases classified elsewhere - Quadriplegia, unspecified - Quadriplegia, unspecified - Sepsis due to anaerobes - Sepsis due to anaerobes - Sepsis, unspecified organism - Type 2 diabetes mellitus without complications - Type 2 diabetes mellitus without complications - Urinary catheterization as the cause of abnormal reaction of the patient, or of later complication, without mention of misadventure at the time of the procedure - Urinary catheterization as the cause of abnormal reaction of the patient, or of later complication, without mention of misadventure at the time of the procedure 10/29/2021 01:[address] [facility] [place] TYPE: Medical Surgical COMPLAINT: - SEPSIS DIAGNOSES: - Allergy status to other drugs, medicaments and biological substances - Allergy status to other drugs, medicaments and biological substances - Contact with and (suspected) exposure to COVID-19 - Contact with and (suspected) exposure to COVID-19 - Cystitis, unspecified without hematuria - Cystitis, unspecified without hematuria - Gastro-esophageal reflux disease without esophagitis - Gastro-esophageal reflux disease without esophagitis - Gram-negative sepsis, unspecified - Gram-negative sepsis, unspecified - Infection and inflammatory reaction due to indwelling urethral catheter, initial encounter - Infection and inflammatory reaction due to indwelling urethral catheter, initial encounter - Neuromuscular dysfunction of bladder, unspecified - Neuromuscular dysfunction of bladder, unspecified - Other ad terminal makeup operator (current) drug therapy - Other halfway (current) drug therapy - Quadriplegia, unspecified - Quadriplegia, unspecified - Sepsis, unspecified organism - Severe sepsis without septic shock - Severe sepsis without septic shock - Type 2 diabetes mellitus with hyperglycemia - Type 2 diabetes mellitus with hyperglycemia [email or web address]
[2022-10-09 02:59] LABS: BASOPHILS 0.8 % (0-2); EOSINOPHILS 2.7 % (0-6); HEMATOCRIT 41.2 % (35.0-50.0); HEMOGLOBIN 12.7 g/dL (12.0-18.0); LYMPHOCYTES 14.9 % (24-44); MCH 26.5 (27-36); MCHC 30.9 g/dl (30-36); MCV 85.7 fl (81-99); MONOCYTES 3.4 % (0-12); NEUTROPHILS 78.2 % (39-80); PLATELET COUNT 396 K/uL (140-440); RDW 14.4 (10.5-15.0)
[2022-10-09 03:18] LABS: LACTIC ACID, BLOOD 3.7 mmol/L (0.4-2.0)
[2022-10-09 03:21] LABS: ALBUMIN 2.6 g/dL (3.4-5.0); ALBUMIN/GLOBULIN RATIO 0.58 (1.1-2.4); ANION GAP 14.9 (7-21); BILIRUBIN, TOTAL 0.5 ng/dL (0.2-1.0); BUN/CREATININE RATIO 11.22 (6.0-28.6); CALCIUM 8.8 mg/dL (8.5-10.1); CREATININE, SERUM 0.98 mg/dL (0.70-1.30); MAGNESIUM 1.9 mg/dL (1.8-2.4); POTASSIUM 4.9 mmol/L (3.5-5.1); PROTEIN, TOTAL 7.1 g/dL (6.4-8.2); TSH, 3RD GENERATION 3.633 uIU/mL (0.358-3.740)
[2022-10-09 03:46] LABS: INFLUENZA B NAA NEGATIVE (NEGATIVE); RESPIRATORY SYNCYTIAL VIR NAA NEGATIVE (NEGATIVE)
[2022-10-09 03:47] LABS: BILIRUBIN, URINE NEGATIVE (negative); BLOOD/HGB, URINE MODERATE (Negative); KETONE, URINE NEGATIVE (Negative); LEUK ESTERASE, URINE LARGE (negative); NITRITE, URINE POSITIVE (negative); PH, URINE 8.5 (5-7)
[2022-10-09 03:48] LABS: BACTERIA, URINE 3+ /hpf (negative); EPITHELIAL CELLS, URINE 0 /lpf (0-1+); WHITE BLOOD CELLS, URINE 21-40 /HPF (0-5)
[2022-10-09 03:49] LABS: REFLEX CULTURE, URINE No (No)
[2022-10-09 04:52] LABS: LACTIC ACID, BLOOD 3.2 mmol/L (0.4-2.0)
--- NOTE | 2022-10-09 05:00 | NUR ---
PATIENT ARRIVED TO THE UNIT VIA STRETCHER, PATIENT IS DROWSY BUT ARROUSABLE TO VOICE. VS STABLE. IV FLUIDS STARTED PER ORDER; IV SITE WNL X2. PATIENT PLACED ON 2L NC DUE TO DESAT OF Sp02 80% ON ROOM AIR WHILE ASLEEP. LUNG SOUNDS ARE CLEAR. ABD SOFT, NONTENDER. SUPERPUBIC REPLACED IN ED AND APPEARS WNL; CLEAR URINE OUTPUT NOTED.
--- NOTE | 2022-10-09 05:30 | NUR ---
NOTIFIED OF CRITICAL LAB VALUES; NO NEW ORDERS.
--- NOTE | 2022-10-09 07:30 | NUR ---
report received from night rn - pt resting in bed on back with eyes closed, rr even and unlabored. VS on monitor wnl.
[2022-10-09] MEDS ORDERED: BACLOFEN10 MG PO (08:24)
[2022-10-09] MEDS ORDERED: SENNA8.6 MG PO (08:26)
[2022-10-09] MEDS ORDERED: LACTULOSE10 GM/151 PO (09:03)
[2022-10-09] MEDS ORDERED: NALOXONE HCL4 MG NAS (09:04)
[2022-10-09] MEDS ORDERED: DIPHENOXYLATE-1 EACH PO (09:05)
[2022-10-09] MEDS ORDERED: NICOTINE GUM2 MG MM (09:05)
[2022-10-09] MEDS ORDERED: PAIN RELIEF EX500 MG PO (09:06)
[2022-10-09] MEDS ORDERED: BISACODYL10 MG PR (09:09)
[2022-10-09] MEDS ORDERED: LORAZEPAM0.5 MG PO (09:16)
--- NOTE | 2022-10-09 09:17 | NUR ---
medications reconciled using facility [facility]
--- NOTE | 2022-10-09 09:39 | NUR ---
PT REPOSISTIONED UP IN BED, HOB ELEVATED TO EAT BREAKFAST. PT ABLE TO SWALLOW ORAL MEDICATIONS WITHOUT DIFFICULTY. AAO, ASSESSMENT COMPLETE. HEEL PROTECTORS IN PLACE. ROOM AND BED ARRAINGED HOW PT PREFERS.
--- NOTE | 2022-10-09 12:49 | NUR ---
Pt sitting up in bed eating lunch tray. Denies needs at this time. Pain within tolerable limit for pt. Nicotine gum provided per pt request.
--- NOTE | 2022-10-09 14:00 | NUR ---
PT RESTING IN BED WITH EYES CLOSED, RR EVEN AND UNLABORED. CALL LIGHT ON CHEST. VS WNL ON MONITOR.
--- NOTE | 2022-10-09 17:00 | NUR ---
PT PLACED ON [facility] BED FOR BREAKDOWN PREVENTION.
--- NOTE | 2022-10-09 20:30 | NUR ---
PATIENT REQUEST HIS BRIEF BE REPOSIITONED DUE TO WRINKLES; WHICH IS WAS. PATIENT ASSISTED TO POSITION HIMSELF MUCH POSSIBLE. REPORTS BEING COMFORTABLE AT THIS TIME. PATIENT PROVIDED WITH SCHEDULED MEDS AND PRN NICOTINE GUM. PATIENT VS STABLE. DENIES ANY FURTHER CONCERNS. TOLERATING ROOM AIR. LUNG SOUNDS ARE CLEAR; DIM IN THE BASES. ENCOURAGED COUGH AND DEEP BREATHING. PATIENT HAS HEEL PROTECTORS IN PLACE AND IS ON SKIN PROTECTING RENTAL BED. BARRIENTOS CARE DONE; TOPICAL OINTMENT APPLIED TO PANIS AREA. NO OTHER NEEDS AT THIS TIME. CALL LIGHT IN REACH.
--- NOTE | 2022-10-09 22:30 | NUR ---
PATIENT DROWSY BUT WAKES WITH STRONG VOICE. PATIENT PROVIDED WITH SCHEDULED MEDS. TRAZADONE HELD; PATIENT AGREEABLE TO THIS HE HAS BEEN SLEEPING SOUNDLY. IV FLUIDS DC'd. IV SITES WNL X2. PATIENT POSITIONED FOR COMFORT. CALL LIGHT IN REACH.
[2022-10-10] VITALS (7 sets, daily range): BP systolic 123–172; BP diastolic 76–106
--- NOTE | 2022-10-10 01:00 | NUR ---
PATIENT APPEARS TO BE SLEEPING SOUNDLY. VS STABLE. ALLOWED PATIENT TO SLEEP.
--- NOTE | 2022-10-10 04:00 | NUR ---
PATIENT WAKES EASILY; DENIES NEEDS. CALL LIGHT IN REACH.
--- NOTE | 2022-10-10 05:00 | NUR ---
LAB IN FOR MORNING DRAW
[2022-10-10 05:37] LABS: BASOPHILS 1.4 % (0-2); EOSINOPHILS 4.3 % (0-6); HEMOGLOBIN 12.1 g/dL (12.0-18.0); LYMPHOCYTES 27.3 % (24-44); MCH 26.2 (27-36); MCHC 31.1 g/dl (30-36); MCV 84.4 fl (81-99); MONOCYTES 5.7 % (0-12); NEUTROPHILS 61.3 % (39-80); PLATELET COUNT 336 K/uL (140-440); RBC 4.62 M/ul (4.3-5.7); RDW 14.2 (10.5-15.0)
[2022-10-10 05:46] LABS: ANION GAP 10.5 (7-21); BUN/CREATININE RATIO 15.49 (6.0-28.6); CALCIUM 8.3 mg/dL (8.5-10.1); CREATININE, SERUM 0.71 mg/dL (0.70-1.30); POTASSIUM 3.5 mmol/L (3.5-5.1)
--- NOTE | 2022-10-10 06:15 | NUR ---
PATIENT PROVIDED WITH SCHEDULED MEDS. PATIENT REPORTS SLEEPING WELL. ASSISTED TO REPOSITION. BARRIENTOS EMPTIED. VS STABLE. PATIENT DENIED ANY FURTHER NEEDS.
--- NOTE | 2022-10-10 08:00 | NUR ---
ASSESSMENT DONE. ACCUCHECK-117, NO INSULIN NEEDED. PATIENT IS AWAKE AND ALERT. DENIES PAIN OR NAUSEA. NO CHILLS. TALKED WITH PATIENT ABOUT CHAIN OF EVENTS LEADING UP TO HOSPITALIZATION AND CURRENT DX. SP CATH IS INTACT. URINE IS LIGHT YELLOW IN COLOR. ROUTINE MEDICATIONS GIVEN. NO PROBLEMS WITH SWALLOWING.
--- NOTE | 2022-10-10 09:00 | NUR ---
TOOK BREAKFAST WELL. DENIES PAIN OR NAUSEA.
--- NOTE | 2022-10-10 10:27 | NUR ---
WASHCLOTH PROVIDED FOR FACE AND HANDS. HAIR BRAIDED. CALL LIGHT IN EASY REACH
--- NOTE | 2022-10-10 12:00 | NUR ---
ASSESSMENT UNCHANGED. PATIENT IS DOING WELL. DENIES NEED FOR PAIN MEDICATION. NO FEVER OR CHILLS.
--- NOTE | 2022-10-10 13:40 | NUR ---
FAXED [facility]IENT UPDATES. ALSO LEFT SUE ADMIN A MESSAGE.
--- NOTE | 2022-10-10 14:00 | NUR ---
NOW IS HOUSE CONVIENCE PATIENT, REMAINS IN ROOM 130. PATIENT IS AWARE. ROUTINE MEDICATIONS GIVEN.
--- NOTE | 2022-10-10 15:48 | EKG ---
[facility] [address] [place] [address] Signed Normal sinus rhythm with sinus arrhythmia Normal ECG When compared with ECG of 19-APR-2022 22:39, Vent. rate has decreased BY 44 BPM Confirmed by SETH GARY MD ([id number]) on 10/10/2022 3:47:48 PM Electronically Signed By: SETH GARY 10/10/22 1548 PATIENT NAME: JONATHANWILLY II Electrocardiogram DATE OF : 70 PHYSICIAN: SETH GARY REPORT #: [id number] REPORT IS CONFIDENTIAL AND NOT TO BE RELEASED WITHOUT AUTHORIZATION
--- NOTE | 2022-10-10 16:48 | NUR ---
AMBULATED IN UNIT AND OUT TO MED-SURG. TOLERATED AMBULATION WELL. ASSESSMENT UNCHANGED.
--- NOTE | 2022-10-10 17:25 | NUR ---
BARRIENTOS EMPTIED, PATIENT RESTING WITH EYES CLOSED.CALL LIGHT IN EASY REACH
--- NOTE | 2022-10-10 18:02 | NUR ---
SITTING UP IN BED EATING DINNER. ACCUCHECK WAS 112. BARRIENTOS CATH REMAINS PATENT WITH CLEAR YELLOW URINE.
--- NOTE | 2022-10-10 19:30 | NUR ---
REPORT TO NEXT SHIFT.
--- NOTE | 2022-10-10 19:33 | NUR ---
REPORT TO MED-SURG.
--- NOTE | 2022-10-10 21:40 | NUR ---
RECEIVED REPORT FROM ERICA FIGUEROA, ALL QUESTIONS AND CONCERNS WERE ADDRESSED AT THIS TIME; PT SITTING UP IN BED WATCHING TV, VSS, DENIES PAIN AT THIS TIME, SCHEDULED MEDICATIONS GIVEN, Q2H TURNS, CALL LIGHT WITHIN REACH, HOURLY CHECKS
--- NOTE | 2022-10-10 22:45 | NUR ---
GAVE PT NIGHTLY MEDS, CHANGED OUT PADS FROM UNDERNEATH PT AND CLEANED UP CATHETER, ALL NEEDS AT THIS TIME ADDRESSED
[2022-10-11] MEDS ORDERED: CEPHALEXIN500 M1 PO (06:15)
--- NOTE | 2022-10-11 07:17 | NUR ---
PT STATES THAT HE RESTED WELL, ALL MORNING MEDICATIONS WERE GIVEN, ADEQUATE URINARY OUTPUT, SPOKE WITH PT THIS MORNING AND DISCUSSED DISCHARGE HOME
--- NOTE | 2022-10-11 07:30 | NUR ---
REPORT RECIEVED. PATIENT IS RESTING IN BED.
[2022-10-11 08:00] VITALS: BP 170/119
--- NOTE | 2022-10-11 08:00 | NUR ---
ACCUCHECK 180. 3 UNITS SQ INSULIN GIVEN. SITTING UP IN BED FOR BREAKFAST. PATEINT DENIES PAIN.
--- NOTE | 2022-10-11 09:07 | NUR ---
SPOKE TO DEJON AT [facility]. PATIENT WILL BE ABLE TO RETURN TO [facility] TODAY. COVID RESULTS FAXED TO [facility]. WILL MAKE ARRANGEMENTS.
--- NOTE | 2022-10-11 09:54 | NUR ---
SPOKE TO THE PATIENT ABOUT THE DC PLAN BACK TO [facility] TODAY. PATIENT WILL GO BY [facility]. PATIENT SIGNED THE MEDICARE LETTER.
--- NOTE | 2022-10-11 11:30 | NUR ---
DISCHARGE INSTRUCTIONS GIVEN WITH PATIENT UNDERSTANDING. IS DRESSED AND READY FOR DISCHARGE. IV SITES X 2 HAVE BEEN DC'D WITH CATH INTACT.
[2022-10-11 11:31] VITALS: BP 152/98
--- NOTE | 2022-10-11 11:32 | NUR ---
PATIENT DRESSED IN PERSONAL CLOTHING, BEDBATH GIVEN. FRESH ICE WATER PROVIDED. BARRIENTOS EMPTIED AND CHARTED. CALL LIGHT AND PERSONAL ITEMS IN EASY REACH
--- NOTE | 2022-10-11 11:38 | NUR ---
ivs x2 removed and charted. patients personal belongings packed up and ready for DC.
--- NOTE | 2022-10-11 11:55 | NUR ---
AMBULANCE TEAM HERE TO TAKE PATIENT BACK TO [facility]. REPORT TO THEM.
--- NOTE | 2022-10-11 12:05 | NUR ---
DISCHARGED TO [facility], PATIENT IS A RESIDENT THERE. AMBULANCE TEAM TO TREANSFER PATIENT. REPORT CALLED TO ALICE AT [facility].
== END 2022-10-11 12:00 | DRG 698 ==
LOC: ED 02:39 → CCU 03:59
PROVIDERS: Internal Medicine; ADMIT Family Medicine; ATTEND Family Medicine
PROC: 3E03329 Introduction of Other Anti-infective into Peripheral Vein, Percutaneous Approach (ICD-10-PCS; principal; 2022-10-09)
PROC: 8E0ZXY6 Isolation (ICD-10-PCS; 2022-10-09)
PROC: 0T2BX0Z Change Drainage Device in Bladder, External Approach (ICD-10-PCS; 2022-10-09)
PROC: XW033E5 Introduction of Remdesivir Anti-infective into Peripheral Vein, Percutaneous Approach, New Technology Group 5 (ICD-10-PCS; 2022-10-09)
DX: T83.518A Infection and inflammatory reaction due to other urinary catheter, initial encounter (principal); A41.9 Sepsis, unspecified organism; G82.50 Quadriplegia, unspecified; G93.41 Metabolic encephalopathy; U07.1 COVID-19; N39.0 Urinary tract infection, site not specified; Z16.24 Resistance to multiple antibiotics; G82.20 Paraplegia, unspecified; E11.9 Type 2 diabetes mellitus without complications; I95.9 Hypotension, unspecified; E66.01 Morbid (severe) obesity due to excess calories; G90.4 Autonomic dysreflexia; Z91.038 Other insect allergy status; Z98.890 Other specified postprocedural states; Z79.899 Other long term (current) drug therapy; Z96.0 Presence of urogenital implants; Z79.02 Long term (current) use of antithrombotics/antiplatelets; Z79.84 Long term (current) use of oral hypoglycemic drugs; Z79.891 Long term (current) use of opiate analgesic; Z68.38 Body mass index [BMI] 38.0-38.9, adult; Y84.6 Urinary catheterization as the cause of abnormal reaction of the patient, or of later complication, without mention of misadventure at the time of the procedure
CPT/HCPCS: 36415; 51702; 51798; 71045; 80048; 80053; 81001; 82553; 83605; 83690; 83735; 84443; 84484; 85025; 87040; 87088; 87502; 99285-25; A9270; J0248; J0696; J1650; J1720; J1815; J7050; J7121; U0002

== ENCOUNTER 2024-02-24 07:07 | Emergency (ER) | payer MEDICARE, OTHER ==
[~2024-02-24] VITALS: Ht 177.8 cm; Wt 123.4 kg
[~2024-02-24 07:07] MED LIST changes: +ATORVASTATIN CA20 MG PO; +BISACODYL10 MG PR; +CEPHALEXIN500 M1 PO; +LACTULOSE10 GM/151 PO; +LORAZEPAM0.5 MG PO; +NALOXONE HCL4 MG NAS; +PAIN RELIEF EX500 MG PO; +SENNA8.6 MG PO
[2024-02-24] MEDS ORDERED: LIDOCAINE 2% VISCOUS 6 ML SYR TOP ONE (07:30)
[2024-02-24 08:18] VITALS: BP 96/64
== END 2024-02-24 08:19 | disposition home or self-care (01) ==
LOC: ED 07:07
DX: T83.020A Displacement of cystostomy catheter, initial encounter (principal); G82.50 Quadriplegia, unspecified; E11.9 Type 2 diabetes mellitus without complications; Z91.030 Bee allergy status; Z79.84 Long term (current) use of oral hypoglycemic drugs; Z79.899 Other long term (current) drug therapy
CPT/HCPCS: 51702; 99283-25

== ENCOUNTER 2024-03-02 06:03 | Emergency (ER) | payer MEDICARE, OTHER ==
[~2024-03-02] VITALS: Ht 177.8 cm; Wt 109.8 kg
--- OUTSIDE RECORDS SUMMARY | 2024-03-02 06:10 | XMS ---
PreManage Notification: WILLY CASTILLO Security Venetian Blind Machine Operator Events No recent Security Events currently on file CRITERIA MET - [facility] - 2 Visits in 30 Days CARE PROVIDERS Isaac Siddiqui Hi Teacher/Watch Supervisor 12/29/2023-Current PHONE: [phone] [facility] 03/26/2019-[facility] \F\ [facility] PHONE: [phone] ARIANA AGOSTO 06/04/2018-Current PHONE: Unknown -[facility] Dentist: Nodulizer Katherine Arciniega PHONE: [phone] -, [place]- Dentist: Nodulizer [facility] PHONE: [phone] TIMOTHY Garcia Physical Medicine \T\ Rehabilitation Current PHONE: Unknown Kat has no Care Guidelines for this patient. Care History Medical/Surgical 09/24/2019 [facility] \R\- PATIENT HAS AN APT WITH DR HUTCHISON-UROLOGIST [facility]T WITH UROLOGIST DR HUTCHISON ON 06/26/2019 @ 1:00PM FOR SP T[facility]BE CH[facility]. [facility] HAS [facility] APT WITH DR HUTCHISON-UROLOGIST 03/26/2019 FOR ER FOLLOW UP. E.D. VISIT COUNT (12 MO.) 3 [facility] TOTAL 3 NOTE: Visits indicate total known visits. ED/UCC VISIT TRACKING (12 MO.) 03/02/2024 06:03 [facility] [place] TYPE: Emergency COMPLAINT: - CATH PROBLEM 02/24/2024 07:08 [facility] [place] TYPE: Emergency COMPLAINT: - CATHETER ISSUE DIAGNOSES: - Bee allergy status - Displacement of cystostomy catheter, initial encounter - termite control representative (current) use of oral hypoglycemic drugs - Other exterminator helper termite (current) drug therapy - Quadriplegia, unspecified - Type 2 diabetes mellitus without complications 01/09/2024 14:[address] [facility] [place] TYPE: Emergency COMPLAINT: - CATHETHER PROBLEM DIAGNOSES: - Bee allergy status - Body mass index [BMI] 33.0-33.9, adult - Displacement of cystostomy catheter, initial encounter - termite control representative (current) use of oral hypoglycemic drugs - Obesity, unspecified - Other [facility] (current) drug therapy - Quadriplegia, unspecified - Type 2 diabetes mellitus without complications - Urinary tract infection, site not specified INPATIENT VISIT TRACKING (12 MO.) No inpatient visits to display in this time frame [id number]
[2024-03-02] MEDS ORDERED: LIDOCAINE 2% VISCOUS 6 ML SYR TOP ONE (06:30)
[2024-03-02] MEDS ORDERED: MIDODRINE HCL 5 MG TAB PO ONE (07:15)
[2024-03-02 07:38] VITALS: BP 87/59
== END 2024-03-02 09:38 | disposition home or self-care (01) ==
LOC: ED 06:03
DX: T83.020A Displacement of cystostomy catheter, initial encounter (principal); Y84.6 Urinary catheterization as the cause of abnormal reaction of the patient, or of later complication, without mention of misadventure at the time of the procedure; G90.4 Autonomic dysreflexia; E11.9 Type 2 diabetes mellitus without complications; S14.109A Unspecified injury at unspecified level of cervical spinal cord, initial encounter; G82.50 Quadriplegia, unspecified; X58.XXXA Exposure to other specified factors, initial encounter; Z91.030 Bee allergy status; Z79.899 Other long term (current) drug therapy; Z79.84 Long term (current) use of oral hypoglycemic drugs
CPT/HCPCS: 99283

== ENCOUNTER 2024-03-10 12:35 | Inpatient (IN) | payer MEDICARE, OTHER ==
[~2024-03-10] VITALS: Ht 177.8 cm; Wt 108.8 kg
[2024-03-10] VITALS (7 sets, daily range): BP systolic 86–163; BP diastolic 53–88
--- OUTSIDE RECORDS SUMMARY | 2024-03-10 12:42 | XMS ---
PreManage Notification: WILLY CASTILLO Security Language Therapist Events No recent Security Events currently on file CRITERIA MET - [facility] - 2 Visits in 30 Days CARE PROVIDERS Isaac Siddiqui Eeg Technologist/Crystallographer 12/29/2023-Current PHONE: [phone] [facility] 03/26/2019-[facility] \F\ [facility] PHONE: [phone] ARIANA AGOSTO 06/04/2018-Current PHONE: Unknown -[facility] Dentist: Industrial Design Intern Katherine Arciniega PHONE: [phone] -, [place]- Dentist: Industrial Design Intern [facility] PHONE: [phone] TIMOTHY Garcia Physical Medicine \T\ Rehabilitation Current PHONE: Unknown Kat has no Care Guidelines for this patient. Care History Medical/Surgical 09/24/2019 [facility] \R\- PATIENT HAS AN APT WITH DR HUTCHISON-UROLOGIST [facility] WITH UROLOGIST DR HUTCHISON ON 06/26/2019 @ 1:00PM FOR SP [facility]. [facility] APT WITH DR HUTCHISON-UROLOGIST 03/26/2019 FOR ER FOLLOW UP. E.D. VISIT COUNT (12 MO.) 4 [facility] TOTAL 4 NOTE: Visits indicate total known visits. ED/UCC VISIT TRACKING (12 MO.) 03/10/2024 12:35 [facility] [place] TYPE: Emergency COMPLAINT: - SOB 03/02/2024 06:03 [facility] [place] TYPE: Emergency COMPLAINT: - CATH PROBLEM DIAGNOSES: - Autonomic dysreflexia - Bee allergy status - Displacement of cystostomy catheter, initial encounter - Exposure to other specified factors, initial encounter - regional administrative assistant (current) use of oral hypoglycemic drugs - Other [facility] (current) drug therapy - Quadriplegia, unspecified - Type 2 diabetes mellitus without complications - Unspecified injury at unspecified level of cervical spinal cord, initial encounter - Urinary catheterization as the cause of abnormal reaction of the patient, or of later complication, without mention of misadventure at the time of the procedure 02/24/2024 07:08 [facility] [place] TYPE: Emergency COMPLAINT: - CATHETER ISSUE DIAGNOSES: - Bee allergy status - Displacement of cystostomy catheter, initial encounter - long-term (current) use of oral hypoglycemic drugs - Other [facility] (current) drug therapy - Quadriplegia, unspecified - Type 2 diabetes mellitus without complications 01/09/2024 14:16 [facility] [place] TYPE: Emergency COMPLAINT: - CATHETHER PROBLEM DIAGNOSES: - Bee allergy status - Body mass index [BMI] 33.0-33.9, adult - Displacement of cystostomy catheter, initial encounter - regional administrative assistant (current) use of oral hypoglycemic drugs - Obesity, unspecified - Other hr specialist (current) drug therapy - Quadriplegia, unspecified - Type 2 diabetes mellitus without complications - Urinary tract infection, site not specified INPATIENT VISIT TRACKING (12 MO.) No inpatient visits to display in this time frame [email or web address]
[2024-03-10 12:59] LABS: BASOPHILS 0.9 % (0-2); EOSINOPHILS 0.8 % (0-6); HEMATOCRIT 41.8 % (35.0-50.0); HEMOGLOBIN 13.7 g/dL (12.0-18.0); LYMPHOCYTES 10.6 % (24-44); MCH 28.6 (27-36); MCHC 32.8 g/dl (30-36); MCV 87.3 fl (81-99); MONOCYTES 5.2 % (0-12); NEUTROPHILS 82.5 % (39-80); PLATELET COUNT 389 K/uL (140-440); RBC 4.79 M/ul (4.3-5.7); RDW 14.2 (10.5-15.0)
[2024-03-10] MEDS ORDERED: CEFTRIAXONE/SODIUM CHLORIDE 2 GM/100 ML PIGGYBACK IV ONE (13:00)
[2024-03-10 13:08] LABS: INR 0.98 (0.80-1.30); PROTIME 12.9 Sec (11.2-14.2)
[2024-03-10 13:13] LABS: ALBUMIN 3.4 g/dL (3.4-5.0); ALBUMIN/GLOBULIN RATIO 0.87 (1.1-2.4); ANION GAP 13.2 (7-21); BILIRUBIN, TOTAL 0.3 ng/dL (0.2-1.0); BUN/CREATININE RATIO 11.81 (6.0-28.6); CALCIUM 9.1 mg/dL (8.5-10.1); CREATININE, SERUM 1.27 mg/dL (0.70-1.30); POTASSIUM 4.2 mmol/L (3.5-5.1); PROTEIN, TOTAL 7.3 g/dL (6.4-8.2)
[2024-03-10] MEDS ORDERED: SODIUM CHLORIDE 0.9% 1,000 ML IV PRN ×2 (13:15→14:00)
[2024-03-10 13:18] LABS: LACTIC ACID, BLOOD 4.2 mmol/L (0.4-2.0)
[2024-03-10 13:59] LABS: BILIRUBIN, URINE NEGATIVE (negative); BLOOD/HGB, URINE LARGE (Negative); KETONE, URINE NEGATIVE (Negative); LEUK ESTERASE, URINE LARGE (negative); NITRITE, URINE NEGATIVE (negative)
[2024-03-10 14:05] LABS: EPITHELIAL CELLS, URINE SQUAMOUS 1+ /lpf (0-1+)
[2024-03-10 14:06] LABS: BACTERIA, URINE RARE /hpf (negative); CASTS, URINE NONE SEEN \\lpf; COLLECTION TYPE, URINE CLEAN CATCH; CRYSTALS, URINE NONE SEEN (0-1+); RED BLOOD CELLS, URINE >50 /hpf (0-5); WHITE BLOOD CELLS, URINE 41-50 /HPF (0-5)
[2024-03-10 14:07] LABS: REFLEX CULTURE, URINE Yes (No)
[2024-03-10] MEDS ORDERED: ENOXAPARIN SODIUM 40 MG/0.4 ML SYR SUB-Q SCH (17:27)
[2024-03-10] MEDS ORDERED: bisacodyL 10 MG SUPP PR PRN (17:30)
[2024-03-10] MEDS ORDERED: ondansetron HCL 4 MG/2 ML VIAL IV PRN (17:30)
[2024-03-10] MEDS ORDERED: DEXTROSE 50% 50 ML SYR IV PRN ×2 (17:30)
[2024-03-10] MEDS ORDERED: IBLOOD GLUCOSE TEST STRIP 1 EA TEST XX PRN (17:30)
[2024-03-10] MEDS ORDERED: LACTATED RINGER'S 1,000 ML IV SCH (17:30)
[2024-03-10] MEDS ORDERED: DEXTROSE 5% 1,000 ML IV PRN (17:30)
[2024-03-10] MEDS ORDERED: GLUCAGON,HUMAN RECOMBINANT 1 MG/ML VIAL SUB-Q PRN (17:30)
[2024-03-10] MEDS ORDERED: ACETAMINOPHEN 325 MG TAB PO PRN (17:30)
--- NOTE | 2024-03-10 18:38 | NUR ---
53 YR OLD MALE PATIENT ADMITTED TO CCU FROM ER VIA STRETCHER WITH DX OF UTI/SEPSIS/HYPOTENTION. HX OF QUADRAPLEGIA, AUTONOMIC DYREFLEXIA. PATIENT WAS FOUND THIS AM BY STAFF MEMBERS AT [facility] WITH AMS AND HYPOTENTION. HAS SP CATH THAT HAS BEEN CHANGE EVERY ONCE A WEAK DUE TO OCCLUSION. THIS CHANGED BY HOME HEALTH. UPON ADMIT TO CCU TO IS TIRED, ALERT AND COOPERATIVE. LR AR 100 ML/HR HUNG, LOVENOX GIVEN PER ORDERS. PATIENT NEEDS FREQUENT POSITIONING OF HEAD, PILLOWS UNDER ARMS.
--- NOTE | 2024-03-10 19:10 | NUR ---
PATIENT IS VERY TIRED. ASKING FOR SANDWICH AND WATER. THESE GIVEN. BACK TO [facility]. DR. GARZA HERE TO SEE PATIENT EARLIER. REPORT TO NEXT SHIFT. ADMISSION NOT COMPLETE AT THIS TIME.
[2024-03-10] MEDS ORDERED: HYDROCODONE/APAP 10/325 1 TAB PO PRN (19:45)
[2024-03-10] MEDS ORDERED: BACLOFEN 10 MG TAB PO PRN (19:45)
[2024-03-10] MEDS ORDERED: TIZANIDINE HCL 4 MG TABLET PO PRN (19:45)
[2024-03-10] MEDS ORDERED: TRAZODONE HCL 50 MG TAB PO PRN (19:45)
--- NOTE | 2024-03-10 20:00 | NUR ---
ASSESSMENT COMPLETED. PATIENT ALERT AND ORIENTED TO PERSON, PLACE, TIME & SITUATION. VITAL SIGNS TAKEN. VITAL SIGNS WITHIN NORMAL LIMITS. PATIENT AFEBRILE. ADMISSION ASSESSMENT COMPLETED. CALL LIGHT AND BEDSIDE TABLE WITHIN REACH. PATIENT REPOSITIONED. NEEDS ATTENDED.
[2024-03-10] MEDS ORDERED: diazePAM 2 MG TAB PO SCH (21:00)
[2024-03-10] MEDS ORDERED: MELATONIN 3 MG TAB PO PRN (21:00)
[2024-03-10] MEDS ORDERED: GABAPENTIN 300 MG CAP PO SCH (21:00)
[2024-03-10] MEDS ORDERED: IBLOOD GLUCOSE TEST STRIP 1 EA TEST VI SCH (21:00)
[2024-03-10] MEDS ORDERED: INSULIN LISPRO 100 UNIT/ML ML SUB-Q SCH (21:00)
[2024-03-10] MEDS ORDERED: MIDODRINE HCL 5 MG TAB PO SCH (21:00)
--- NOTE | 2024-03-10 22:08 | NUR ---
NURSE ASSESSED TWO IV SITES ON PATIENT. IV SITE #1 RIGHT IJ; IV SITE #2 20G RIGHT ARM. IVFs of LR RUNNING AT 125MLS/HR. BOTH IV SITES ARE WITHIN NORMAL LIMITS. NO PROBLEMS ASSOCIATED WITH IV SITES.
--- NOTE | 2024-03-10 22:11 | NUR ---
pt reports 7/10 neck and back pain, prn pain med provided. pt readjusted. water provided. pt states no other needs at this time. call light in reach.
[2024-03-11] VITALS (9 sets, daily range): BP systolic 99–142; BP diastolic 57–82
--- NOTE | 2024-03-11 | NUR ---
PATIENT IN BED WATCHING TV. PATIENT CLAIMED HE WAS COMFORTABLE AT THIS TIME. NURSE ASSISTED PATIENT WITH REPOSITIONING HIS PILLOW AROUND HIS NECK. CALL LIGHT, BELONGINGS, AND BEDSIDE TABLE WITHIN REACH. ASSESSMENT PERFORMED AND AND VITAL SIGNS TAKEN.
--- NOTE | 2024-03-11 04:00 | NUR ---
PATIENT SLEEPING AT THIS TIME. PATIENT EASILY AWAKENED. ASSESSMENT AND VITAL SIGNS TAKEN. PATIENT RETURNED TO SLEEP. PATIENT CLAIMED HE IS COMFORTABLE AT THIS TIME. CALL LIGHT, BELONGINGS AND BEDSIDE TABLE WITHIN REACH.
[2024-03-11 05:22] LABS: BASOPHILS 0.1 % (0-2); EOSINOPHILS 4.3 % (0-6); HEMATOCRIT 36.5 % (35.0-50.0); HEMOGLOBIN 11.9 g/dL (12.0-18.0); LYMPHOCYTES 23.6 % (24-44); MCH 28.6 (27-36); MCHC 32.7 g/dl (30-36); MCV 87.4 fl (81-99); MONOCYTES 5.6 % (0-12); NEUTROPHILS 66.4 % (39-80); PLATELET COUNT 304 K/uL (140-440); RBC 4.18 M/ul (4.3-5.7); RDW 14.2 (10.5-15.0)
[2024-03-11 05:36] LABS: ANION GAP 13.5 (7-21); BUN/CREATININE RATIO 18.66 (6.0-28.6); CALCIUM 8.2 mg/dL (8.5-10.1); CREATININE, SERUM 0.75 mg/dL (0.70-1.30); MAGNESIUM 1.9 mg/dL (1.8-2.4); POTASSIUM 3.5 mmol/L (3.5-5.1)
--- NOTE | 2024-03-11 07:30 | NUR ---
report received. PATIENT IS RESTING IN BED. IVF PATENT. SP CATH PATENT.
[2024-03-11] MEDS ORDERED: CEFTRIAXONE/SODIUM CHLORIDE 2 GM/100 ML PIGGYBACK IV SCH (09:00)
--- NOTE | 2024-03-11 10:04 | NUR ---
PATIENT ALERT AND ORIENTED. STATES HE LIVES AT [facility]. HE HAS A MOTORIZED WHEELCHAIR AND HOSPITAL BED. HE DOES NOT DRIVE. HE HAS NO FINANCIAL CONCERNS AT THIS TIME. PATIENT STATES HE HAS NO CM NEEDS FACILITY MEETS HIS NEEDS.
[2024-03-11] MEDS ORDERED: diazePAM 2 MG TAB PO PRN (10:15)
--- NOTE | 2024-03-11 10:32 | NUR ---
CALLED AND SPOKE WITH [facility]. STATES THEY HAVE NO OTHER WAY TO TRANSPORT PATIENT EXCEPT NONEMERGENT TRANSPORT. WILL SET UP TRANSPORT FOR DC WHEN ORDERS ARE IN.
--- NOTE | 2024-03-11 10:45 | NUR ---
PLAN TO DISCHARGE THIS AFTERNOON. VALIUM 2 MG PO GIVEN FOR SPASMS. PATIENT IS AWARE HE WILL BE DISCHARGED TODAY. IVF OFF.
[2024-03-11] MEDS ORDERED: BACTRIM DS TAB1 EACH PO (10:55)
[2024-03-11] MEDS ORDERED: VITAMIN C500 M1 PO (11:00)
[2024-03-11] MEDS ORDERED: IRON325 M1 PO (11:01)
[2024-03-11] MEDS ORDERED: ALA-CORT28.4 GM TOP (11:07)
[2024-03-11] MEDS ORDERED: PEPCID AC10 MG PO (11:10)
[2024-03-11] MEDS ORDERED: GAS RELIEF125 M1 PO (11:13)
[2024-03-11] MEDS ORDERED: PEPTO-BISM262 MG/15 PO (11:15)
--- NOTE | 2024-03-11 11:18 | NUR ---
MED REC COMPLETE
--- NOTE | 2024-03-11 11:46 | NUR ---
CALLED [facility] FOR NONEMERGENT TRANSPORT TO [facility]. WILL ARRIVE AROUND 1300 FOR TRANSPORT. STAFF NOTIFIED. ORDERS FAXED TO [facility].
[2024-03-11] MEDS ORDERED: PHARMACY RENAL DOSE ADJUSTMENT 1 DOSE MISC PO SCH (12:00)
--- NOTE | 2024-03-11 12:20 | NUR ---
SITTING UP IN BED FOR LUNCH. CHRISTOPHE NICOLE.
--- NOTE | 2024-03-11 13:15 | NUR ---
[facility] HERE TO TAKE PATIENT TO [facility].
--- NOTE | 2024-03-11 13:20 | NUR ---
CALLED [facility] TO GIVE REPORT. THEY ARE UNABLE TO TAKE REPORT, THEY SAID THEY WOULD CALL BACK IF THEY HAD QUESTIONS.
--- NOTE | 2024-03-11 13:30 | NUR ---
UR CLINICAL REVIEW: 2 MN FOR [facility] INPT CRITERIA FOR UTI MEDICARE INPT 03/10/24 ORDER MATCHES REG NO AUTH REQUIRED PER MEDICARE GUIDELINES DISCHARGE TO HOME WHEN STABLE
[2024-03-11] MEDS ORDERED: ATORVASTATIN 20 MG TAB PO SCH (17:00)
[2024-03-19] MEDS ORDERED: STOOL SOFTENER100 MG PO (15:19)
[2024-03-19] MEDS ORDERED: BACTRIM DS TAB1 EACH PO (15:19)
[2024-03-19] MEDS ORDERED: TRAZODONE HCL50 MG PO (15:20)
[2024-03-19] MEDS ORDERED: MULTIVITAMIN1 EACH PO (15:27)
[2024-03-19] MEDS ORDERED: METFORMIN HCL500 M1 PO (15:27)
[2024-03-19] MEDS ORDERED: CLARITIN10 MG PO (15:28)
[2024-03-19] MEDS ORDERED: OMEPRAZOLE20 MG PO (15:29)
[2024-03-19] MEDS ORDERED: BACLOFEN10 MG PO (15:29)
== END 2024-03-11 13:15 | disposition home or self-care (01) | DRG 690 ==
LOC: ED 12:35 → CCU 17:31
PROVIDERS: Emergency Medicine; ADMIT Student in an Organized Health Care Education/Training Program; ATTEND Student in an Organized Health Care Education/Training Program
DX: N39.0 Urinary tract infection, site not specified (principal); G90.4 Autonomic dysreflexia; E78.5 Hyperlipidemia, unspecified; M62.838 Other muscle spasm; G89.29 Other chronic pain; F51.04 Psychophysiologic insomnia; E11.9 Type 2 diabetes mellitus without complications; F41.9 Anxiety disorder, unspecified; R31.9 Hematuria, unspecified; Z98.890 Other specified postprocedural states; Z91.038 Other insect allergy status; Z79.899 Other long term (current) drug therapy; Z79.84 Long term (current) use of oral hypoglycemic drugs; N21.0 Calculus in bladder
CPT/HCPCS: 36415; 51702; 71045; 74177; 80048; 80053; 81001; 83036; 83605; 83735; 85025; 85060; 85610; 87040; 87077; 87088; 87186; 99285-25; A9270; J0696; J1650; J7030; J7121; Q9967

== ENCOUNTER 2024-03-21 14:29 | Emergency (ER) | payer MEDICARE, OTHER ==
[~2024-03-21] VITALS: Ht 177.8 cm; Wt 115.7 kg
[~2024-03-21 14:29] MED LIST changes: +ALA-CORT28.4 GM TOP; +BACTRIM DS TAB1 EACH PO; +GAS RELIEF125 M1 PO; +IRON325 M1 PO; +METFORMIN HCL500 M1 PO; +MULTIVITAMIN1 EACH PO; +PEPCID AC10 MG PO; +PEPTO-BISM262 MG/15 PO; +STOOL SOFTENER100 MG PO
--- OUTSIDE RECORDS SUMMARY | 2024-03-21 14:36 | XMS ---
PreManage Notification: WILLY CASTILLO Security Hand Tool Filer Events No recent Security Events currently on file CRITERIA MET - [facility] - 2 Visits in 30 Days CARE PROVIDERS Isaac Siddiqui Billing Collections Specialist/Fabric Cutter 12/29/2023-Current PHONE: [phone] [facility]/[place] 03/26/2019-[facility] \F\ [facility] PHONE: [phone] ARIANA AGOSTO 06/04/2018-Current PHONE: Unknown -[facility] Dentist: Table Maker Katherine Arciniega PHONE: [phone] -, [place]- Dentist: Table Maker [facility] PHONE: [phone] TIMOTHY Garcia Physical Medicine \T\ Rehabilitation Current PHONE: Unknown Kat has no Care Guidelines for this patient. Care History Medical/Surgical 09/24/2019 [facility] \R\- PATIENT HAS AN APT WITH DR HUTCHISON-UROLOGIST [facility]T WITH UROLOGIST DR HUTCHISON ON 06/26/2019 @ 1:00PM FOR SP TUBE CH[facility]. [facility] HAS AN APT WITH DR HUTCHISON-UROLOGIST 03/26/2019 FOR ER FOLLOW UP. E.D. VISIT COUNT (12 MO.) [address] [facility] TOTAL 5 NOTE: Visits indicate total known visits. ED/UCC VISIT TRACKING (12 MO.) 03/21/2024 14:29 [facility] [place] TYPE: Emergency COMPLAINT: - CATH ISSUES 03/10/2024 12:35 [facility] [place] TYPE: Emergency COMPLAINT: - SOB 03/02/2024 06:03 [facility] [place] TYPE: Emergency COMPLAINT: - CATH PROBLEM DIAGNOSES: - Autonomic dysreflexia - Bee allergy status - Displacement of cystostomy catheter, initial encounter - Exposure to other specified factors, initial encounter - custodial (current) use of oral hypoglycemic drugs - Other strickler attendant (current) drug therapy - Quadriplegia, unspecified - [...] Displacement of cystostomy catheter, initial encounter - esl instructional assistant (current) use of oral hypoglycemic drugs - Other strickler attendant (current) drug therapy - Quadriplegia, unspecified - Type 2 diabetes mellitus without complications 01/09/2024 14:16 [facility] [place] TYPE: Emergency COMPLAINT: - CATHETHER PROBLEM DIAGNOSES: - Bee allergy status - Body mass index [BMI] 33.0-33.9, adult - Displacement of cystostomy catheter, initial encounter - custodial (current) use of oral hypoglycemic drugs - Obesity, unspecified - Other strickler attendant (current) drug therapy - Quadriplegia, unspecified - Type 2 diabetes mellitus without complications - Urinary tract infection, site not specified INPATIENT VISIT TRACKING (12 MO.) 03/10/2024 17:31 [facility] [place] TYPE: Critical Care COMPLAINT: - COMPLICATED UTI DIAGNOSES: - Anxiety disorder, unspecified - Autonomic dysreflexia - Calculus in bladder - Hematuria, unspecified - Hyperlipidemia, unspecified - esl instructional assistant (current) use of oral hypoglycemic drugs - Other chronic pain - Other insect allergy status - Other strickler attendant (current) drug therapy - Other muscle spasm - Other specified postprocedural states - Psychophysiologic insomnia - Type 2 diabetes mellitus without complications - Urinary tract infection, site not specified [id number]
[2024-03-21] MEDS ORDERED: BACLOFEN 10 MG TAB PO ONE (15:30)
[2024-03-21] MEDS ORDERED: HYDROCODONE/APAP 10/325 1 TAB PO ONE (15:30)
[2024-03-21] MEDS ORDERED: GABAPENTIN 600 MG TAB PO ONE (15:30)
[2024-03-21] MEDS ORDERED: MIDODRINE HCL 5 MG TAB PO ONE (16:30)
[2024-03-21 17:50] VITALS: BP 156/83
== END 2024-03-21 17:50 | disposition home or self-care (01) ==
LOC: ED 14:29
DX: K56.41 Fecal impaction (principal); G90.4 Autonomic dysreflexia; R03.0 Elevated blood-pressure reading, without diagnosis of hypertension; G82.50 Quadriplegia, unspecified; E11.9 Type 2 diabetes mellitus without complications; Z93.50 Unspecified cystostomy status; Z91.030 Bee allergy status; Z79.84 Long term (current) use of oral hypoglycemic drugs; Z79.899 Other long term (current) drug therapy
CPT/HCPCS: 99283; A9270

== ENCOUNTER 2024-03-27 05:48 | Day surgery (SDC) | payer MEDICARE, OTHER ==
[~2024-03-27] VITALS: Ht 177.8 cm; Wt 109.0 kg
[~2024-03-27 05:48] MED LIST changes: +BOTULINUM TOXIN TYPE A 100 UNITS VIAL IM ONE; +CEFTRIAXONE/SODIUM CHLORIDE 2 GM/100 ML PIGGYBACK IV SCH; +IBLOOD GLUCOSE TEST STRIP 1 EA TEST VI PRN; +LACTATED RINGER'S 1,000 ML IV SCH; +LIDOCAINE HCL 1% 5 ML SDV INJ ONE
[2024-03-27 06:07] VITALS: BP 124/70
[2024-03-27] MEDS ORDERED: SENNA8.6 MG PO (06:12)
[2024-03-27] MEDS ORDERED: FERROUS SULFAT325 M2 PO (06:35)
[2024-03-27] MEDS ORDERED: PEPTO-BISM262 MG/15 PO (06:40)
[2024-03-27] MEDS ORDERED: GAS RELIEF125 M1 PO (06:41)
[2024-03-27] MEDS ORDERED: ACID CONTROLLER10 MG PO (06:42)
[2024-03-27] MEDS ORDERED: LOMOTIL TABLET1 EACH PO (06:42)
[2024-03-27] MEDS ORDERED: BISACODYL10 MG PR (06:43)
[2024-03-27] MEDS ORDERED: NYSTATIN15 G2 TOP (06:44)
[2024-03-27] MEDS ORDERED: SODIUM CHLORIDE 0.9% 40 ML IV ONE (06:57)
[2024-03-27] MEDS ORDERED: LIDOCAINE HCL 1% 5 ML SDV INJ ONE (07:00)
[2024-03-27] MEDS ORDERED: IBLOOD GLUCOSE TEST STRIP 1 EA TEST VI PRN (07:00)
[2024-03-27] MEDS ORDERED: BOTULINUM TOXIN TYPE A 100 UNITS VIAL IM ONE (07:00)
[2024-03-27] MEDS ORDERED: CEFTRIAXONE/SODIUM CHLORIDE 2 GM/100 ML PIGGYBACK IV SCH (07:00)
--- NOTE | 2024-03-27 07:39 | NUR ---
PT NOT AVAILABLE FOR VISIT. PROVIDED PRAYER.
[2024-03-27] MEDS ORDERED: BUPIVACAINE HCL 0.5% 30 ML VIAL ONE (07:47)
[2024-03-27] MEDS ORDERED: LIDOCAINE HCL 2% 5 ML SDV ONE (07:48)
[2024-03-27] MEDS ORDERED: fentaNYL citrate 100 MCG/2 ML VIAL ONE (07:48)
[2024-03-27] MEDS ORDERED: BUPIVACAINE 0.75% IN DEXTROSE 2 ML AMP ONE (07:48)
[2024-03-27] MEDS ORDERED: MIDAZOLAM HCL 2 MG/2 ML VIAL ONE (07:48)
[2024-03-27] MEDS ORDERED: TRAMADOL HCL 50 MG TAB PO PRN (08:00)
[2024-03-27] MEDS ORDERED: ondansetron HCL 4 MG/2 ML VIAL IV PRN (08:00)
[2024-03-27] MEDS ORDERED: MORPHINE SULFATE 15 MG TABCR PO PRN (08:00)
[2024-03-27] MEDS ORDERED: HYOSCYAMINE SULFATE 0.375 MG TAB.ER.12H PO PRN (08:00)
[2024-03-27] MEDS ORDERED: OXYCODONE/APAP 5/325 TAB PO PRN (08:00)
[2024-03-27] MEDS ORDERED: MORPHINE SULFATE 4 MG/ML VIAL IV PRN (08:00)
[2024-03-27] MEDS ORDERED: propofoL 200 MG/20 ML VIAL ONE (08:00)
[2024-03-27] MEDS ORDERED: KETAMINE in NS 50 MG/5 ML SYR ONE (08:18)
[2024-03-27] MEDS ORDERED: ePHEDrine sulfate 50 MG/ML AMP ONE (08:41)
[2024-03-27] MEDS ORDERED: ondansetron HCL 4 MG/2 ML VIAL ONE (09:32)
[2024-03-27 10:21] VITALS: BP 139/82
--- NOTE | 2024-03-27 10:29 | NUR ---
LE 1020: PT IS BACK TO DS FROM PACU. HE IS AT HIS BASELINE. HE HAS NO COMPLAINTS OF [place], NO PAIN AT THIS TIME. HE WOULD LIKE SOME PUDDING, AISSATOU CRACKERS, AND WATER. NO ADDITIONAL NEEDS AT THIS TIME. CALL LIGHT WITHIN REACH. DC CRITERIA REVIEWED.
--- NOTE | 2024-03-27 11:08 | NUR ---
[facility] PACU WIDE AWAKE WITH NO C/O'S. 0956 BLOOD SUGAR 86. 1005 VISITING WITH STAFF. NO C/O'S. 1020 TO DS. REPORT GIVEN TO ERICA.
[2024-03-27 11:18] VITALS: BP 138/81
--- NOTE | 2024-03-27 11:20 | NUR ---
PT IS TOLERATING WATER, COFFEE, PUDDING, AND CRACKERS. HE HAS MET DC CRITERIA AT THIS TIME. CALL LIGHT WITHIN REACH. WILL WORK ON GETTING HIM READY TO GO BACK TO [facility].
--- NOTE | 2024-03-27 12:36 | NUR ---
LE 1159: [facility] IS CALLED TO SETUP RETURN RIDE TO HOME FACILITY. THEY SAID THE FIRE ENGINE PUMP OPERATOR WOULD BE HERE IN ABOUT 35-40 MINUTES. LE 1205: 2 RN'S ASSIST PT WITH PUTTING ON A CLEAN BRIEF AND GETTING DRESSED. LE 1222: PT IS GIVEN VERBAL AND WRITTEN DC INSTRUCTIONS. HE VERBALIZES UNDERSTANDING. NO QUESTIONS ARE ASKED AT THIS TIME. PT IS ASSISTED INTO HIS MOTORIZED WC WITH 2 RN ASSIST. WAITING IN ROOM UNTIL TRANSPORTATION ARRIVES.
--- NOTE | 2024-03-27 13:16 | NUR ---
LE 1304: PT IS TAKEN OUT TO TRANSPORTATION VIA MOTORIZED WC.
--- NOTE | 2024-03-27 21:16 | EKG ---
[facility] [address] [place] [address] Signed Sinus bradycardia Nonspecific T wave abnormality Abnormal ECG When compared with ECG of 09-OCT-2022 02:54, Vent. rate has decreased BY 26 BPM Nonspecific T wave abnormality, worse in Lateral leads QT has shortened Confirmed by Khurram Garza DO ([id number]) on 03/27/2024 9:15:49 PM Electronically Signed By: KHURRAM GARZA DO 03/27/[id number] PATIENT NAME: WILLY CASTILLO MURPHY Electrocardiogram DATE OF : 70 PHYSICIAN: KHURRAM GARZA DO REPORT #: [id number] REPORT IS CONFIDENTIAL AND NOT TO BE RELEASED WITHOUT AUTHORIZATION
[2024-03-30 14:41] LABS: CALCULI MASS 257 mg (())
== END 2024-03-27 12:30 | disposition home or self-care (01) ==
LOC: DS 05:48 → OPS 05:48
PROVIDERS: ATTEND Urology
PROC: 0TCB8ZZ Extirpation of Matter from Bladder, Via Natural or Artificial Opening Endoscopic (ICD-10-PCS; principal; 2024-03-27 07:30)
PROC: 3E0K8GC Introduction of Other Therapeutic Substance into Genitourinary Tract, Via Natural or Artificial Opening Endoscopic (ICD-10-PCS; 2024-03-27 07:30)
PROC: 0T9B80Z Drainage of Bladder with Drainage Device, Via Natural or Artificial Opening Endoscopic (ICD-10-PCS; 2024-03-27 07:30)
DX: N21.0 Calculus in bladder (principal); N31.9 Neuromuscular dysfunction of bladder, unspecified; N99.512 Cystostomy malfunction; N39.0 Urinary tract infection, site not specified; I10 Essential (primary) hypertension; E11.9 Type 2 diabetes mellitus without complications; Z79.899 Other long term (current) drug therapy; F17.220 Nicotine dependence, chewing tobacco, uncomplicated; Z91.030 Bee allergy status
CPT/HCPCS: 00860; 82365; 93005; 93010; J0585; J0696; J2003; J2250; J2405; J2704; J3010; J3490; J7121

== ENCOUNTER 2024-10-31 11:00 | Emergency (ER) | payer MEDICARE, OTHER ==
[~2024-10-31] VITALS: Ht 177.8 cm; Wt 114.5 kg
[~2024-10-31 11:00] MED LIST changes: +ACID CONTROLLER10 MG PO; -BOTULINUM TOXIN TYPE A 100 UNITS VIAL IM ONE; -CEFTRIAXONE/SODIUM CHLORIDE 2 GM/100 ML PIGGYBACK IV SCH; +FERROUS SULFAT325 M2 PO; -IBLOOD GLUCOSE TEST STRIP 1 EA TEST VI PRN; -LACTATED RINGER'S 1,000 ML IV SCH; -LIDOCAINE HCL 1% 5 ML SDV INJ ONE; +NYSTATIN15 G2 TOP
[2024-10-31 13:00] VITALS: BP 159/80
== END 2024-10-31 13:00 | disposition home or self-care (01) ==
LOC: ED 11:00
DX: T83.89XA Other specified complication of genitourinary prosthetic devices, implants and grafts, initial encounter (principal); Z91.030 Bee allergy status; Z79.899 Other long term (current) drug therapy; Z79.84 Long term (current) use of oral hypoglycemic drugs
CPT/HCPCS: 99283

== ENCOUNTER 2024-11-08 10:59 | Emergency (ER) | payer MEDICARE, OTHER ==
[~2024-11-08] VITALS: Ht 177.8 cm; Wt 125.3 kg
--- OUTSIDE RECORDS SUMMARY | 2024-11-08 11:06 | XMS ---
PreManage Notification: WILLY CASTILLO Security Tool Shaper Setup Operator Events No recent Security Events currently on file CRITERIA MET - [facility] - 2 Visits in 30 Days CARE PROVIDERS JAQUELINE [facility] 03/26/2019-[facility] \F\ <UNAVAIL> PHONE: [phone] ARIANA AGOSTO Physician 06/04/2018-Current PHONE: Unknown -[facility] Dentist: [employer] Seed Culler Katherine Arciniega PHONE: [phone] TIMOTHY Garcia Physical Medicine \T\ Rehabilitation Current PHONE: Unknown Isaac Siddiqui Retail Solar Advisor/Science Technician Current PHONE: [phone] Kat has no Care Guidelines for this patient. Care History Medical/Surgical 09/24/2019 [facility] \R\- PATIENT HAS AN APT WITH DR HUTCHISON-UROLOGIST 10/23/2019 06/20/2019 [facility]\- PATIENT HAS AN APT WITH UROLOGIST DR HUTCHISON ON 06/26/2019 @ 1:00PM FOR SP TUBE CHANGE. 03/25/2019 [facility]\- PATIENT HAS AN APT WITH DR HUTCHISON-UROLOGIST 03/26/2019 FOR ER FOLLOW UP. E.D. VISIT COUNT (12 MO.) 7 [facility]. TOTAL 7 NOTE: Visits indicate total known visits. ED/UCC VISIT TRACKING (12 MO.) 11/08/2024 11:00 [facility] TYPE: Emergency COMPLAINT: - SYNCOPE 10/31/2024 11:00 [facility] TYPE: Emergency COMPLAINT: - CATH ISSUES DIAGNOSES: - Bee allergy status - terminal manager (current) use of oral hypoglycemic drugs - Other terminal manager (current) drug therapy - Other specified complication of genitourinary prosthetic devices, implants and grafts, initial encounter 03/21/2024 14:29 [facility] TYPE: Emergency COMPLAINT: - CATH ISSUES DIAGNOSES: - Autonomic dysreflexia - Bee allergy status - Elevated blood-pressure reading, without diagnosis of hypertension - Fecal impaction - correction (current) use of oral hypoglycemic drugs - Other terminal manager (current) drug therapy - Quadriplegia, unspecified - Type 2 diabetes mellitus without complications - Unspecified complication of genitourinary prosthetic device, implant and graft, initial encounter - Unspecified cystostomy status 03/10/2024 12:35 [facility] TYPE: Emergency COMPLAINT: - SOB 03/02/2024 06:03 [facility] TYPE: Emergency COMPLAINT: - CATH PROBLEM DIAGNOSES: - Autonomic dysreflexia - Bee allergy status - Displacement of cystostomy catheter, initial encounter - Exposure to other specified factors, initial encounter - correction (current) use of oral hypoglycemic drugs - Other terminal manager (current) drug therapy - Quadriplegia, unspecified - [...] Displacement of cystostomy catheter, initial encounter - terminal manager (current) use of oral hypoglycemic drugs - Other correction (current) drug therapy - Quadriplegia, unspecified - Type 2 diabetes mellitus without complications 01/09/2024 14:16 [facility] TYPE: Emergency COMPLAINT: - CATHETHER PROBLEM DIAGNOSES: - Bee allergy status - Body mass index [BMI] 33.0-33.9, adult - Displacement of cystostomy catheter, initial encounter - correction (current) use of oral hypoglycemic drugs - Obesity, unspecified - Other terminal manager (current) drug therapy - Quadriplegia, unspecified - Type 2 diabetes mellitus without complications - Urinary tract infection, site not specified INPATIENT VISIT TRACKING (12 MO.) 03/10/2024 17:31 [facility] TYPE: Critical Care COMPLAINT: - COMPLICATED UTI DIAGNOSES: - Anxiety disorder, unspecified - Anxiety disorder, unspecified - Autonomic dysreflexia - Autonomic dysreflexia - Calculus in bladder - Calculus in bladder - Hematuria, unspecified - Hematuria, unspecified - Hyperlipidemia, unspecified - Hyperlipidemia, unspecified - correction (current) use of oral hypoglycemic drugs - correction (current) use of oral hypoglycemic drugs - Other chronic pain - Other chronic pain - Other insect allergy status - Other insect allergy status - Other correction (current) drug therapy - Other correction (current) drug therapy - Other muscle spasm - Other muscle spasm - Other specified postprocedural states - Other specified postprocedural states - Psychophysiologic insomnia - Psychophysiologic insomnia - Type 2 diabetes mellitus without complications - Type 2 diabetes mellitus without complications - Urinary tract infection, site not specified [email or web address]
[2024-11-08 11:17] LABS: BASOPHILS 0.5 % (0.2-1.2); EOSINOPHILS 0.2 % (0.8-7.0); LYMPHOCYTES 7.5 % (21.8-53.1); MCH 28.7 PG (25.7-32.2); MCHC 31.6 g/dL (32.3-36.5); MCV 90.7 fL (79.0-92.2); MONOCYTES 5.4 % (5.3-12.2); NEUTROPHILS 85.9 % (34.0-67.9); RBC 4.71 M/uL (4.63-6.08)
[2024-11-08 11:37] LABS: ALT (SGPT) 22.0 U/L (14-59); AST (SGOT) 16.0 U/L (15-37); GLOMERULAR FILTRATION RATE,EST 68.0 mL/min (>60); PROTEIN, TOTAL 6.7 g/dL (6.4-8.2); UREA NITROGEN 21.0 mg/dL (7-18)
[2024-11-08 15:15] VITALS: BP 140/89
--- NOTE | 2024-11-08 19:52 | EKG ---
[facility] [address] [facility] [place] [address] Signed Normal sinus rhythm Normal ECG When compared with ECG of 27-MAR-2024 06:26, ST elevation now present in Lateral leads Nonspecific T wave abnormality, improved in Lateral leads Confirmed by Khurram Garza DO ([id number]) on 11/08/2024 7:52:31 PM Electronically Signed By: KHURRAM GARZA DO 11/08/241951 PATIENT NAME: NICHOLESENGMYLENEWILLY II Electrocardiogram DATE OF : 70 PHYSICIAN: KHURRAM GARZA DO REPORT #: [id number] REPORT IS CONFIDENTIAL AND NOT TO BE RELEASED WITHOUT AUTHORIZATION
== END 2024-11-08 14:10 | disposition home or self-care (01) ==
LOC: ED 10:59
PROVIDERS: Emergency Medicine
DX: R55 Syncope and collapse (principal); E11.9 Type 2 diabetes mellitus without complications; G82.50 Quadriplegia, unspecified; Z96.0 Presence of urogenital implants; Z91.030 Bee allergy status; Z79.84 Long term (current) use of oral hypoglycemic drugs; Z79.899 Other long term (current) drug therapy
CPT/HCPCS: 36415; 80053; 83735; 84484; 85025; 85060; 93005; 93010; 99284

== ENCOUNTER 2025-01-06 08:35 | Day surgery (SDC) | payer MEDICARE, OTHER | END 2025-01-06 15:15 | disposition home or self-care (01) | LOC: DS 08:35 | PROC: 3E0K8GC Introduction of Other Therapeutic Substance into Genitourinary Tract, Via Natural or Artificial Opening Endoscopic (ICD-10-PCS; principal; 2025-01-06) | PROC: 0TH Urinary System, Insertion (ICD-10-PCS; 2025-01-06) | DX: N31.9 Neuromuscular dysfunction of bladder, unspecified (principal); R33.9 Retention of urine, unspecified; N32.89 Other specified disorders of bladder; E11.9 Type 2 diabetes mellitus without complications; I10 Essential (primary) hypertension; Z91.030 Bee allergy status; Z79.84 Long term (current) use of oral hypoglycemic drugs; Z79.899 Other long term (current) drug therapy ==